=== PATIENT | male | born 1940 | race Caucasian/White ===

== ENCOUNTER 2019-11-26 07:18 | Outpatient (REF) | payer MEDICARE, SELFPAY ==
[2019-11-26 11:34] LABS: Cholesterol 102 mg/dL; HDL Cholesterol 40 mg/dL; LDL Cholesterol Calculated 35 mg/dl; Triglycerides 136 mg/dL
== END 2019-11-26 07:19 | disposition home or self-care (01) ==
LOC: HO.HMGCLDS 07:18
PROVIDERS: PCP Nurse Practitioner Family; Visit Provider Nurse Practitioner Family
DX: E78.5 Hyperlipidemia, unspecified (principal)
CPT/HCPCS: 80061

== ENCOUNTER 2019-12-13 06:16 | Outpatient (REF) | payer MEDICARE, SELFPAY ==
[2019-12-13 11:36] LABS: Estimated Average Glucose 146 mg/dL; Hemoglobin A1c % 6.7 %
[2019-12-13 11:53] LABS: Microalbum/Creatinine Ratio Ur 13.3 ug/mg cr
[2019-12-13 12:05] LABS: Anion Gap 16 (12-20); Blood Urea Nitrogen 16 mg/dL (9-16); Calcium 8.4 mg/dL (8.4-10.2); Carbon Dioxide 26 mmol/L (22-29); Chloride 106 mmol/L (96-108); Cholesterol 117 mg/dL; Estimated Glomerular Filt Rate > 60; Glucose Fasting 174 mg/dL (60-99); HDL Cholesterol 37 mg/dL; LDL Cholesterol Calculated 45 mg/dl; Potassium 4.5 mmol/l (3.3-5.1); Sodium 143 mmol/L (135-145); Triglycerides 176 mg/dL
== END 2019-12-13 06:17 | disposition home or self-care (01) ==
LOC: HO.HMGCLDS 06:16
PROVIDERS: PCP Nurse Practitioner Family; Visit Provider Nurse Practitioner Family
DX: E11.9 Type 2 diabetes mellitus without complications (principal)
CPT/HCPCS: 80048; 80061; 82043; 83036

== ENCOUNTER 2020-02-27 06:20 | Outpatient (REF) | payer MEDICARE, SELFPAY ==
[2020-02-27 11:32] LABS: Estimated Average Glucose 143 mg/dL; Hemoglobin A1c % 6.6 %
[2020-02-27 11:50] LABS: Alanine Aminotransferase 11 U/L (0-40); Albumin Level 4.2 g/dL (3.5-5.0); Alkaline Phosphatase 65 U/L (39-117); Anion Gap 16 (12-20); Aspartate Amino Transferase 18 U/L (5-37); Bilirubin Total 0.4 mg/dL (0.0-1.0); Blood Urea Nitrogen 24 mg/dL (9-16); Carbon Dioxide 24 mmol/L (22-29); Chloride 107 mmol/L (96-108); Cholesterol 133 mg/dL; Estimated Glomerular Filt Rate 55; Glucose Fasting 132 mg/dL (60-99); HDL Cholesterol 40 mg/dL; LDL Cholesterol Calculated 48 mg/dl; Potassium 4.9 mmol/l (3.3-5.1); Sodium 142 mmol/L (135-145); Total Protein 6.9 g/dL (6.5-8.0); Triglycerides 226 mg/dL
== END 2020-02-27 06:21 | disposition home or self-care (01) ==
LOC: HO.HMGCLDS 06:20
PROVIDERS: PCP Nurse Practitioner Family; Visit Provider Nurse Practitioner Family
DX: E11.9 Type 2 diabetes mellitus without complications (principal)
CPT/HCPCS: 36415; 80053; 80061; 83036

== ENCOUNTER 2020-03-11 | Outpatient (REF) | payer MEDICARE, SELFPAY ==
[2020-03-17 16:30] LABS: FIT Int Ctl YES; FIT1 NEGATIVE (NEGATIVE); FIT2 NEGATIVE (NEGATIVE)
== END 2020-03-11 00:01 | disposition home or self-care (01) ==
LOC: HO.LNP
PROVIDERS: Visit Provider Nurse Practitioner Family
DX: D64.9 Anemia, unspecified (principal)
CPT/HCPCS: 82274

== ENCOUNTER 2020-05-22 06:35 | Outpatient (REF) | payer MEDICARE, SELFPAY ==
[2020-05-22 12:16] LABS: Alanine Aminotransferase 13 U/L (0-40); Albumin Level 4.2 g/dL (3.5-5.0); Alkaline Phosphatase 43 U/L (39-117); Anion Gap 13 (12-20); Aspartate Amino Transferase 20 U/L (5-37); Bilirubin Total 0.4 mg/dL (0.0-1.0); Blood Urea Nitrogen 27 mg/dL (9-16); Carbon Dioxide 26 mmol/L (22-29); Chloride 107 mmol/L (96-108); Cholesterol 152 mg/dL; Estimated Glomerular Filt Rate 58; Glucose Fasting 133 mg/dL (60-99); HDL Cholesterol 32 mg/dL; LDL Cholesterol Calculated 73 mg/dl; Potassium 4.4 mmol/L (3.3-5.1); Sodium 142 mmol/L (135-145); Total Protein 6.7 g/dL (6.5-8.0); Triglycerides 235 mg/dL
== END 2020-05-22 06:36 | disposition home or self-care (01) ==
LOC: HO.HMGCLDS 06:35
PROVIDERS: Visit Provider Nurse Practitioner Family
DX: E11.9 Type 2 diabetes mellitus without complications (principal); E78.5 Hyperlipidemia, unspecified
CPT/HCPCS: 36415; 80053; 80061

== ENCOUNTER 2020-07-06 06:17 | Outpatient (REF) | payer MEDICARE, SELFPAY ==
[2020-07-06 11:59] LABS: Cholesterol 152 mg/dL; HDL Cholesterol 36 mg/dL; LDL Cholesterol Calculated 73 mg/dl; Triglycerides 215 mg/dL
== END 2020-07-06 06:18 | disposition home or self-care (01) ==
LOC: HO.HMGCLDS 06:17
PROVIDERS: PCP Nurse Practitioner Family; Visit Provider Nurse Practitioner Family
DX: E78.5 Hyperlipidemia, unspecified (principal)
CPT/HCPCS: 36415; 80061

== ENCOUNTER 2020-11-02 06:21 | Outpatient (REF) | payer MEDICARE, SELFPAY ==
[2020-11-02 12:43] LABS: Creatinine Urine 110.48 mg/dL; Microalbum/Creatinine Ratio Ur 11.7 ug/mg cr
[2020-11-02 12:59] LABS: Estimated Average Glucose 111 mg/dL; Hemoglobin A1c % 5.5 %
[2020-11-02 14:24] LABS: Alanine Aminotransferase 13 U/L (0-40); Alkaline Phosphatase 62 U/L (39-117); Anion Gap 14 (12-20); Aspartate Amino Transferase 21 U/L (5-37); Bilirubin Total 0.3 mg/dL (0.0-1.0); Blood Urea Nitrogen 20 mg/dL (9-16); Calcium 9.2 mg/dL (8.4-10.2); Carbon Dioxide 21 mmol/L (22-29); Chloride 111 mmol/L (96-108); Cholesterol 145 mg/dL; Estimated Glomerular Filt Rate > 60; Glucose Fasting 136 mg/dL (60-99); HDL Cholesterol 32 mg/dL; LDL Cholesterol Calculated 73 mg/dl; Potassium 4.4 mmol/L (3.3-5.1); Sodium 142 mmol/L (135-145); Total Protein 6.3 g/dL (6.5-8.0); Triglycerides 200 mg/dL
== END 2020-11-02 06:22 | disposition home or self-care (01) ==
LOC: HO.HMGCLDS 06:21
PROVIDERS: PCP Nurse Practitioner Family; Visit Provider Nurse Practitioner Family
DX: E11.9 Type 2 diabetes mellitus without complications (principal); Z12.5 Encounter for screening for malignant neoplasm of prostate
CPT/HCPCS: 36415; 80053; 80061; 82043; 83036; 84153

== ENCOUNTER 2020-11-10 06:14 | Outpatient (REF) | payer MEDICARE, SELFPAY ==
[2020-11-10 11:35] LABS: Appearance Urine CLEAR; Color Urine YELLOW; Glucose Urine UA NEG (NEG); Leukocyte Esterase Urine NEG (NEG); Nitrite Urine NEG (NEG); PH 5.5 (5.0-8.0); Specific Gravity - Urine >= 1.030 (1.005-1.025); Urine Blood NEG (NEG); Urine Ketones 5 MG/DL (NEG); Urine Protein NEG (NEG-TRACE)
[2020-11-10 11:48] LABS: Estimated Average Glucose 111 mg/dL; Hemoglobin A1c % 5.5 %
[2020-11-10 11:58] LABS: Alanine Aminotransferase 14 U/L (0-40); Alkaline Phosphatase 47 U/L (39-117); Anion Gap 14 (12-20); Aspartate Amino Transferase 21 U/L (5-37); Bilirubin Total 0.4 mg/dL (0.0-1.0); Blood Urea Nitrogen 21 mg/dL (9-16); Calcium 9.1 mg/dL (8.4-10.2); Carbon Dioxide 25 mmol/L (22-29); Chloride 109 mmol/L (96-108); Cholesterol 144 mg/dL; Estimated Glomerular Filt Rate > 60; Glucose Fasting 121 mg/dL (60-99); HDL Cholesterol 33 mg/dL; LDL Cholesterol Calculated 68 mg/dl; Potassium 4.1 mmol/L (3.3-5.1); Sodium 144 mmol/L (135-145); Total Protein 6.4 g/dL (6.5-8.0); Triglycerides 219 mg/dL
[2020-11-10 12:19] LABS: Creatinine Urine 191.49 mg/dL; Microalbum/Creatinine Ratio Ur 11.4 ug/mg cr
[2020-11-10 12:22] LABS: TSH reflex Free T4 2.78 uIU/mL (0.32-4.0)
== END 2020-11-10 06:15 | disposition home or self-care (01) ==
LOC: HO.HMGCLDS 06:14
PROVIDERS: PCP Nurse Practitioner Family; Visit Provider Nurse Practitioner Family
DX: E11.9 Type 2 diabetes mellitus without complications (principal)
CPT/HCPCS: 36415; 80053; 80061; 81003; 82043; 83036; 84443

== ENCOUNTER 2021-04-26 09:17 | Outpatient (REF) | payer MEDICARE, SELFPAY ==
[2021-04-26 11:29] LABS: Appearance Urine CLEAR; Color Urine YELLOW; Glucose Urine UA NEG (NEG); Leukocyte Esterase Urine NEG (NEG); Nitrite Urine NEG (NEG); Specific Gravity - Urine >= 1.030 (1.005-1.025); UACC Culture Trigger NO; Urine Blood TRACE (NEG); Urine Ketones NEG (NEG); Urine Protein TRACE MG/DL (NEG-TRACE)
[2021-04-26 11:44] LABS: RBC Urine 0-2 /HPF (0); Squamous Epithelial Cell Urine 1+ /LPF
[2021-04-26 12:10] LABS: Alanine Aminotransferase 17 U/L (0-40); Alkaline Phosphatase 55 U/L (39-117); Anion Gap 14 (12-20); Aspartate Amino Transferase 21 U/L (5-37); Bilirubin Total 0.4 mg/dL (0.0-1.0); Blood Urea Nitrogen 15 mg/dL (9-16); Calcium 9.1 mg/dL (8.4-10.2); Carbon Dioxide 26 mmol/L (22-29); Chloride 108 mmol/L (96-108); Cholesterol 119 mg/dL; Estimated Glomerular Filt Rate > 60; Glucose Fasting 196 mg/dL (60-99); HDL Cholesterol 38 mg/dL; LDL Cholesterol Calculated 50 mg/dl; Potassium 4.1 mmol/L (3.3-5.1); Sodium 144 mmol/L (135-145); Total Protein 6.7 g/dL (6.5-8.0); Triglycerides 157 mg/dL
[2021-04-26 12:39] LABS: Estimated Average Glucose 140 mg/dL; Hemoglobin A1c % 6.5 %
== END 2021-04-26 09:18 | disposition home or self-care (01) ==
LOC: HO.HMGCLDS 09:17
PROVIDERS: Visit Provider Nurse Practitioner Family
DX: E11.9 Type 2 diabetes mellitus without complications (principal)
CPT/HCPCS: 36415; 80053; 80061; 81001; 83036; 84443

== ENCOUNTER 2021-05-24 06:26 | Outpatient (REF) | payer MEDICARE, SELFPAY ==
[2021-05-24 11:26] LABS: Appearance Urine CLEAR; Color Urine YELLOW; Glucose Urine UA NEG (NEG); Leukocyte Esterase Urine NEG (NEG); Nitrite Urine NEG (NEG); Specific Gravity - Urine 1.025 (1.005-1.025); Urine Blood NEG (NEG); Urine Ketones NEG (NEG); Urine Protein NEG (NEG-TRACE)
== END 2021-05-24 06:27 | disposition home or self-care (01) ==
LOC: HO.HMGCLDS 06:26
PROVIDERS: Visit Provider Nurse Practitioner Family
DX: E11.9 Type 2 diabetes mellitus without complications (principal)
CPT/HCPCS: 81003

== ENCOUNTER → 2021-06-10 10:03 | Outpatient (BNVA) | payer MEDICARE, SELFPAY | PROVIDERS: PCP Nurse Practitioner Family; Referring Provider Nurse Practitioner Family; Visit Provider Internal Medicine Cardiovascular Disease | DX: I73.9 Peripheral vascular disease, unspecified (principal); Z79.899 Other long term (current) drug therapy | CPT/HCPCS: 93005; 99212 ==

== ENCOUNTER 2021-09-02 09:21 | Outpatient (REF) | payer MEDICARE, SELFPAY ==
--- NOTE | ~2021-09-02 | US_ITS ---
EXAMINATION: US EXTRACRANIAL CAROTID DUPLEX, BILATERAL CLINICAL INFORMATION: Atherosclerotic disease COMPARISON: None TECHNIQUE: Real-time ultrasound and Doppler techniques (integrating B-mode 2-D vascular images, Doppler spectral analysis and color-flow Doppler imaging) were utilized to interrogate the extracranial carotid arteries, the vertebral arteries and proximal subclavian arteries bilaterally. The degree of stenosis is determined by criteria similar to NASCET. FINDINGS: Right Side: 1. There is moderate atherosclerotic plaque seen in the bifurcation/proximal ICA region. 2. The common carotid artery PSV proximally is 85 cm/s and distally 70 cm/s. 3. The proximal internal carotid artery velocities are 316 cm/s systolic and 33 cm/s diastolic. 4. The proximal external carotid artery PSV is 234 cm/s. 5. The vertebral artery shows antegrade flow. 6. The subclavian artery waveforms are normal. Left Side: 1. There is mild atherosclerotic plaque seen in the bifurcation/proximal ICA region. 2. The common carotid artery PSV proximally is 104 cm/s and distally 76 cm/s. 3. The proximal internal carotid artery velocities are 68 cm/s systolic and 13 cm/s diastolic. 4. The proximal external carotid artery PSV is 191 cm/s. 5. The vertebral artery shows antegrade flow. 6. The subclavian artery waveforms are normal. US/US carotid duplex BI IMPRESSION: 1. RIGHT: Moderate, hemodynamically significant stenosis of the proximal right internal carotid artery corresponding to a 50-79% stenosis by velocity criteria. 2. LEFT: Minimal, non-hemodynamically significant stenosis of the proximal left internal carotid artery corresponding to a 0-49% stenosis by velocity criteria. 3. Elevated velocities in the right external carotid artery suggesting stenosis.
--- NOTE | ~2021-09-02 | US_ITS ---
EXAMINATION: NONINVASIVE ASSESSMENT OF THE ARTERIES OF BOTH LOWER EXTREMITIES INCLUDING PVR EXAM AND BILATERAL LOWER EXTREMITY DUPLEX. CLINICAL INFORMATION: Atherosclerosis, right popliteal and superficial femoral angioplasty and atherectomy, left endarterectomy COMPARISON: Noninvasive exam of the lower extremity arterial system on 06/19/2018 TECHNIQUE: Ankle pulse volume recordings, ankle pressure measurements and ankle brachial indices were obtained of the lower extremity arterial system bilaterally in addition to duplex Doppler techniques with wave form analysis and measurement of velocities in the common femoral, profunda femoral, superficial femoral, popliteal, tibial and peroneal arteries. The study was performed only at rest. FINDINGS: RIGHT LEG 1. THE RIGHT ANKLE-BRACHIAL INDEX IS: 1.01 >0.97-1.25 = normal - no significant arterial disease 0.75-0.96 = mild peripheral arterial disease 0.5-0.74 = moderate peripheral arterial disease <0.50 = severe peripheral arterial disease <0.30 = critical arterial disease 2. SEGMENTAL PRESSURES (mmHg): Ankle: PT 132, DP 154 3. PVR WAVEFORMS: Ankle: Mildly dampened 4. DIRECT DUPLEX: Common femoral artery: 210 cm/s, Multiphasic Profunda femoris artery: 310 cm/s, Multiphasic Superficial femoral artery (proximal): 384 cm/s, Multiphasic Superficial femoral artery (mid): 139 cm/s, Multiphasic Superficial femoral artery (distal): 124 cm/s, Multiphasic Proximal Popliteal artery: 101 cm/s, Multiphasic Mid posterior tibial artery: Occluded LEFT LE. THE LEFT ANKLE-BRACHIAL INDEX IS: 0.97 (higher of the DP/PT) >0.97-1.25 = normal - no significant arterial disease 0.75-0.96 = mild peripheral arterial disease 0.5-0.74 = moderate peripheral arterial disease <0.50 = severe peripheral arterial disease <0.30 = critical arterial disease 2. SEGMENTAL PRESSURES: Ankle: PT 147, DP 146 3. PVR WAVEFORMS: Ankle: Mildly dampened 4. DIRECT DUPLEX: Common femoral artery: 416 cm/s, Multiphasic Profunda femoris artery: 401 cm/s, Multiphasic Superficial femoral artery (proximal): 383 cm/s, Multiphasic Superficial femoral artery (mid): 383 cm/s, Multiphasic Superficial femoral artery (distal): 129 cm/s, Multiphasic Proximal Popliteal artery: 128 cm/s, Multiphasic Mid posterior tibial artery: 89 cm/s, Multiphasic US/US arterial duplex LE BI IMPRESSION: Right lower extremity: Elevated velocities in the proximal right lower extremity suggesting hemodynamically significant stenosis. Normal CHRISTIAN may artifactual secondary to atherosclerotic calcification or collateralization. Left lower extremity: Elevated velocities in the proximal left lower extremity suggesting hemodynamically significant stenosis. Normal CHRISTIAN may artifactual secondary to atherosclerotic calcification or collateralization.
== END 2021-09-02 09:22 | disposition home or self-care (01) ==
LOC: HO.US 09:21
PROVIDERS: Visit Provider Surgery Vascular Surgery
DX: I70.213 Atherosclerosis of native arteries of extremities with intermittent claudication, bilateral legs (principal); I65.21 Occlusion and stenosis of right carotid artery
CPT/HCPCS: 93880; 93923; 93925

== ENCOUNTER 2021-09-02 16:20 | Outpatient (REF) | payer MEDICARE, SELFPAY | END 2021-09-02 16:21 | disposition home or self-care (01) | LOC: HO.US 16:20 | PROVIDERS: Visit Provider Surgery Vascular Surgery | DX: Z13.89 Encounter for screening for other disorder (principal) ==

== ENCOUNTER → 2021-09-07 09:40 | Outpatient (BNVA) | payer MEDICARE, SELFPAY | PROVIDERS: PCP Nurse Practitioner Family; Visit Provider Surgery Vascular Surgery | DX: I65.23 Occlusion and stenosis of bilateral carotid arteries (principal); I73.9 Peripheral vascular disease, unspecified | CPT/HCPCS: 99212 ==

== ENCOUNTER 2021-10-07 06:35 | Outpatient (REF) | payer MEDICARE, SELFPAY ==
[2021-10-07 11:21] LABS: MANUAL DIFF FLAG NO
[2021-10-07 11:28] LABS: Basophils Percent Auto 0.4 % (0-2); Eosinophils Absolute Auto 0.3 X10*3/uL (0.0-0.4); Eosinophils Percent Auto 5.5 % (0-4); Hemoglobin 12.4 g/dl (14.0-18.0); Lymphocytes Absolute Auto 1.1 X10*3/uL (1.2-4.9); Lymphocytes Percent Auto 23.6 % (20-40); Mean Corpuscular HGB Conc 31.8 g/dl (31.0-36.0); Mean Corpuscular Hemoglobin 28.9 pg (27.0-33.0); Mean Corpuscular Volume 90.9 fL (80.0-98.0); Mean Platelet Volume 11.1 fL (9.4-12.4); Monocytes Absolute Auto 0.4 X10*3/uL (0.1-1.2); Monocytes Percent Auto 8.6 % (2-11); Neutrophils Absolute Auto 2.8 x10*3/uL (2.0-8.3); Neutrophils Percent Auto 61.9 % (45-73); Platelet Count 166 X10*3/uL (160-400); Red Blood Count 4.29 X10*6/uL (4.60-5.80); Red Cell Distribution Width 14.6 % (11.0-16.0); White Blood Count 4.5 X10*3/uL (4.8-10.8)
[2021-10-07 11:39] LABS: Estimated Average Glucose 143 mg/dL; Hemoglobin A1c % 6.6 %
[2021-10-07 12:08] LABS: Alanine Aminotransferase 9 U/L (0-40); Albumin Level 3.8 g/dL (3.5-5.0); Alkaline Phosphatase 58 U/L (39-117); Anion Gap 14 (12-20); Aspartate Amino Transferase 15 U/L (5-37); Bilirubin Total 0.5 mg/dL (0.0-1.0); Blood Urea Nitrogen 18 mg/dL (9-16); Calcium 8.9 mg/dL (8.4-10.2); Carbon Dioxide 25 mmol/L (22-29); Chloride 105 mmol/L (96-108); Cholesterol 107 mg/dL; Estimated Glomerular Filt Rate > 60; Glucose Fasting 157 mg/dL (60-99); HDL Cholesterol 44 mg/dL; LDL Cholesterol Calculated 43 mg/dl; Sodium 140 mmol/L (135-145); Total Protein 6.3 g/dL (6.5-8.0); Triglycerides 101 mg/dL
[2021-10-07 12:11] LABS: PSA,Total (Free>4and<10) 0.89 ng/mL (0.00-4.00); TSH reflex Free T4 3.82 uIU/mL (0.32-4.0)
[2021-10-07 12:30] LABS: Creatinine Urine 58.98 mg/dL; Microalbumin Urine < 5.0 mg/L
[2021-10-07 13:47] LABS: Appearance Urine Clear; Color Urine Yellow; Glucose Urine UA Negative (Negative); Leukocyte Esterase Urine Negative (Negative); Nitrite Urine Negative (Negative); Urine Blood Negative (Negative); Urine Ketones Negative (Negative); Urine Protein Negative (Neg-Trace)
== END 2021-10-07 06:36 | disposition home or self-care (01) ==
LOC: HO.HMGCLDS 06:35
PROVIDERS: PCP Nurse Practitioner Family; Visit Provider Nurse Practitioner Family
DX: E11.9 Type 2 diabetes mellitus without complications (principal); C61 Malignant neoplasm of prostate
CPT/HCPCS: 36415; 80053; 80061; 81003; 82043; 83036; 84153; 84443; 85025

== ENCOUNTER 2021-12-14 06:32 | Day surgery (SDC) | payer MEDICARE, SELFPAY ==
--- NOTE | 2021-12-13 11:06 | P.CONAN_ITS ---
Documented by User: Shellie Newman NP 12/13/21 11:08 HPI - Anesthesia Eval Consult details Narrative: 81yo M for Upper Endoscopy Optimized per cardiology. OK to stop plavix PMFSH Active Problems Active Problems: All Active Problems (Updated 11/08/21 @ 12:00 by [facility] Chronic GERD (Acute) Prostate CA (Acute) Bilateral carotid artery stenosis (Acute) PVD (peripheral vascular disease) (Acute) Encounter for annual wellness visit (AWV) in Medicare patient (Acute) Screening PSA (prostate specific antigen) (Acute) Plantar callus (Acute) Acquired hammertoes of both feet (Acute) Type 2 diabetes mellitus without complication, without long-term current use of insulin (Acute) Anemia (Acute) Dyslipidemia (Acute) Diabetes (Acute) Past Medical History Medical History (Updated 11/08/21 @ 12:00 by [facility]) Acquired hammertoes of both feet Carotid artery stenosis COPD (chronic obstructive pulmonary disease) Dyslipidemia Eczema Hearing loss HTN (hypertension) Plantar callus Prostate CA PVD (peripheral vascular disease) Type 2 diabetes mellitus without complication, without long-term current use of insulin Family History Family History Father Medical history non-contributory Mother Medical history non-contributory Son No problems noted. Daughter No problems noted. Daughter No problems noted. Surgical History Surgical History H/O colonoscopy with polypectomy History of angioplasty History of atherectomy History of cataract surgery History of cataract surgery History of endarterectomy History of left-sided carotid endarterectomy Status post aortography with runoff Social History Social History Housing: House Alcohol intake: current Patient Tobacco Use Status: Former Tobacco user Years Smoked: quit 25 years ago e-Cigarette/Vaping Use: Never Used Second Hand Smoke Exposure: No Use of substances other than those prescribed or required for medical reasons: No Advance Directives: No Advance Directives Information Provided: Yes service: Yes Current occupational status: retired Cognitive needs: No Hearing needs: No Vision needs: No Meds Allergies Allergy/AdvReac Type Severity Reaction Status Date / Time No Known Allergies Allergy Verified 11/08/21 11:38 [No Known Allergies*] Home Medications Medication Instructions Recorded Confirmed Last Taken Type flu vacc [id number](65yr up)-PF 240 ml IM 03/02/20 10/04/21 Unknown History mcg/0.7 mL intramuscular syringe fluticasone propionate 50 intranasal 03/02/20 11/08/21 Unknown History mcg/actuation nasal spray,suspension pneumoc 13-rocky conj-dip cr(PF) 0.5 0.5 ml IM DIRECTED 03/02/20 10/04/21 Unknown History mL IM syringe Exam Exam Date and Time: December 13, 2021 1106 Pertinent Lab Results Pertinent Lab Results: Laboratory Tests 10/07/21 10/07/21 06:48 06:48 WBC 4.5 L Hgb 12.4 L Hct 39.0 L Plt Count 166 Sodium 140 Potassium 4.0 Chloride 105 Carbon Dioxide 25 BUN 18 H Creatinine 1.08 Narrative Narrative: EKG 05/2021 normal sinus rhythm with incomplete right bundle-branch block, otherwise normal EKG US carotid duplex BI 08/2021 IMPRESSION: 1. RIGHT: Moderate, hemodynamically significant stenosis of the proximal right internal carotid artery corresponding to a 50-79% stenosis by velocity criteria. ? 2. LEFT: Minimal, non-hemodynamically significant stenosis of the proximal left internal carotid artery corresponding to a 0-49% stenosis by velocity criteria. ? 3. Elevated velocities in the right external carotid artery suggesting stenosis. Assessment and Plan Assessment Anesthesia Assessment: Chart Reviewed Documented by User: Hernandez Acuna MD 12/14/21 16:02 [facility] Past Medical History Medical History (Updated 11/08/21 @ 12:00 by Cristhian Durán [facility]) Acquired hammertoes of both feet Carotid artery stenosis COPD (chronic obstructive pulmonary disease) Dyslipidemia Eczema Hearing loss HTN (hypertension) Plantar callus Prostate CA PVD (peripheral vascular disease) Type 2 diabetes mellitus without complication, without long-term current use of insulin Functional capacity: independent ambulation Family History Family History Father Medical history non-contributory Mother Medical history non-contributory Son No problems noted. Daughter No problems noted. Daughter No problems noted. Family history of problems with anesthesia: No Surgical History Surgical History H/O colonoscopy with polypectomy History of angioplasty History of atherectomy History of cataract surgery History of cataract surgery History of endarterectomy History of left-sided carotid endarterectomy Status post aortography with runoff History of Problems with Anesthesia: No Social History Social History Housing: House Alcohol intake: current Patient Tobacco Use Status: Former Tobacco user Years Smoked: quit 25 years ago e-Cigarette/Vaping Use: Never Used Second Hand Smoke Exposure: No Use of substances other than those prescribed or required for medical reasons: No Advance Directives: No Advance Directives Information Provided: Yes service: Yes Current occupational status: retired Cognitive needs: No Hearing needs: No Vision needs: No Meds Allergies Allergy/AdvReac Type Severity Reaction Status Date / Time No Known Allergies Allergy Verified 11/08/21 11:38 [No Known Allergies*] Home Medications Medication Instructions Recorded Confirmed Last Taken Type flu vacc [id number](65yr up)-PF 240 ml IM 03/02/20 10/04/21 Unknown History mcg/0.7 mL intramuscular syringe fluticasone propionate 50 intranasal 03/02/20 11/08/21 Unknown History mcg/actuation nasal spray,suspension pneumoc 13-rocky conj-dip cr(PF) 0.5 0.5 ml IM DIRECTED 03/02/20 10/04/21 Unknown History mL IM syringe Exam Airway Mallampati Class: IV TM Dist: >3cm Neck ROM: Full (thick neck ) Loose/Missing/Broken Teeth: Yes (Chipped teeth ,) Heart: S1,S2 Lungs: b/l breath sounds Assessment and Plan Assessment Anesthesia Assessment: Anesthesia Plan Discussed Final Anesthetic Review Family History of Problems with Anesthesia: No History of Problems with Anesthesia: No NPO: Yes ASA Class: III Final Preanesthetic Review: Meds/Allgs Chart Reviewed, Consent Obtained/Reviewed and Anes Risks/Benef Reviewed Patient Risk: High Procedure Risk: Intermediate Anesthetic Plan Anesthetic Plan: MAC: Disposition: Standard PACU
[2021-12-14 06:39] VITALS: BMI 28.5
[2021-12-14 06:53] VITALS: BP 169/73; PULSE 70; RESP 16; TEMP 36.4; O2SAT 96
[2021-12-14] MEDS: Lactated Ringers 1,000 ML 100 ML IVCONT (07:02)
[2021-12-14 07:55] LABS: Glucose, Whole Blood 190 mg/dL (60-115)
[2021-12-14 08:05] VITALS: BP 143/67; PULSE 66; RESP 16; TEMP 36.4; O2SAT 98
--- NOTE | 2021-12-14 08:08 | P.BOP_ITS ---
Brief Operative Note Date of Service: 12/14/21 Pre-op diagnosis: Early satiety, anorexia Post-op diagnosis: other (Gastritis, Hiatal hernia) Procedure: EGD with biopsies Surgeon: Larry Infante Anesthesia: MAC Was an Line Construction Engineer used for this Procedure?: No Estimated blood loss (mL): 2.0 Pathology: other (A. Gastric antrum) Condition: stable Disposition: PACU
[2021-12-14 08:20] VITALS: BP 157/66; PULSE 72; RESP 18; TEMP 36.4; O2SAT 97
--- NOTE | 2021-12-14 08:44 | OP_ITS ---
SURGEON: Larry Infante MD INDICATIONS: The patient presents for evaluation of nausea, early satiety, and anorexia. Full consent has been obtained from him for this, including risks of bleeding and perforation. PREOPERATIVE DIAGNOSIS: POSTOPERATIVE DIAGNOSIS: Nausea, anorexia, early satiety, mild gastritis, small hiatal hernia. PROCEDURE PERFORMED: Esophagogastroduodenoscopy with biopsy. ESTIMATED BLOOD LOSS: COMPLICATIONS: ANESTHESIA: Monitored anesthesia care. ASSISTANTS: SPECIMENS: PREOPERATIVE DIAGNOSES: Nausea, anorexia, early satiety. DESCRIPTION OF PROCEDURE: The patient was placed in the left lateral decubitus position. The Olympus video gastroscope was passed in the posterior oropharynx and upper esophagus under direct vision. The scope was passed slowly to the distal esophagus. The gastroesophageal junction appeared at 38 cm. There was a very minimal irregularity but no evidence of any esophagitis, Gloria's mucosa, ulceration, nor mass. The scope entered into the stomach. There was a small hiatal hernia. The scope was advanced to the pylorus, and the duodenum was cannulated to the descending portion. The duodenum including the bulb appeared normal without mass or ulceration. The pyloric channel was patent without ulceration nor stricture. The scope was withdrawn back to the stomach. The gastric antrum had some mild areas of erythema, but was otherwise normal. Peristalsis appeared normal. There was no ulceration or mass. Biopsies were obtained from the antrum. The scope was retroflexed visualizing the proximal stomach carefully, which appeared normal, without any sign of mass or ulceration. The scope was straightened and withdrawn back to the esophagus. The esophageal mucosa appeared normal. The scope was withdrawn from the patient. He tolerated the procedure well and was returned to the recovery area in stable condition. IMPRESSION: 1. Mild gastritis. 2. Small hiatal hernia. PLAN: The results of the biopsy will be checked. I did advise him to continue his omeprazole for now to see if that gives him any relief from his evening symptoms of the early satiety and nausea. I shall also arrange for an outpatient nuclear medicine gastric emptying study to rule out any component of gastroparesis, although based on his clinical history and today's findings, I doubt that is the case. If the nuclear medicine gastric emptying study is normal, then I would recommend we observe things. He may need to eat small meals during the day so he doesn't have the evening symptomatology. This has been discussed with his . MD MAXINE Hooker/RAE / [id number] SAULO
== END 2021-12-14 08:52 | disposition home or self-care (01) ==
PROVIDERS: PCP Nurse Practitioner Family; Visit Provider Internal Medicine
PROC: 0DJ08ZZ Inspection of Upper Intestinal Tract, Via Natural or Artificial Opening Endoscopic (ICD-10-PCS; CPT 43235; principal; 2021-12-14 07:30)
DX: K21.9 Gastro-esophageal reflux disease without esophagitis (principal); R63.0 Anorexia; R68.81 Early satiety; K29.50 Unspecified chronic gastritis without bleeding; K44.9 Diaphragmatic hernia without obstruction or gangrene; J44.9 Chronic obstructive pulmonary disease, unspecified; Z87.891 Personal history of nicotine dependence; I65.23 Occlusion and stenosis of bilateral carotid arteries; I10 Essential (primary) hypertension; C61 Malignant neoplasm of prostate; I73.9 Peripheral vascular disease, unspecified; E11.9 Type 2 diabetes mellitus without complications; Z79.84 Long term (current) use of oral hypoglycemic drugs; Z79.899 Other long term (current) drug therapy; Z79.51 Long term (current) use of inhaled steroids
CPT/HCPCS: 43239; 82947; 88305; 88342

== ENCOUNTER → 2021-12-27 07:43 | Outpatient (REF) | payer MEDICARE, SELFPAY ==
--- NOTE | ~2021-12-27 | NM_ITS ---
EXAMINATION: RADIONUCLIDE SOLID FOOD GASTRIC EMPTYING 4-HOUR STUDY CLINICAL INFORMATION: Early satiety. COMPARISON: No previous gastric emptying study is available for comparison. TECHNIQUE: A standard meal consisting of 4 oz of Egg Beaters brand tagged with 1.0 mCi Tc-99m Sulfur Colloid, 8 oz water and 2 slices of toast with jelly was administered orally to the patient. Images were obtained using a dual head gamma camera in the anterior and posterior projections over of the stomach immediately post ingestion and at hourly intervals up to 3 hours post ingestion. Images were not obtained at 4 hours due to the minimal retention at 3 hours. The anterior and posterior counts at each time interval were averaged using the geometric mean and expressed as percentage of the immediate post ingestion counts. FINDINGS: There is good visualization of activity in the stomach immediately post ingestion. As the study progresses, there is good clearance of activity from the stomach and visualization of progressively increasing small bowel activity. By the end of the study, there is almost no retention noted in the stomach. Retention in the stomach at each time interval was: 1 hour 33% (normal 37%-90%) 2 hours 7% (normal 30%-60%) 3 hours 2% 4 hours (Not Obtained) (normal 0%-10%) NM/NM gastric emptying study IMPRESSION: Normal solid food gastric emptying study.
== END ==
LOC: HO.NUCMED 07:43
PROVIDERS: PCP Nurse Practitioner Family; Visit Provider Internal Medicine
DX: R68.81 Early satiety (principal)
CPT/HCPCS: 78264; A9541

== ENCOUNTER 2021-12-30 09:59 | Outpatient (AMB) | payer MEDICARE, SELFPAY ==
--- NOTE | 2021-12-27 11:58 | A.OFFVIS_ITS ---
Intake Intake Visit Reasons: Elevated PSA Intake Note: Patient is present for Telephone Elevated PSA Blood Thinner: Allergies No Known Allergies [No Known Allergies*] Allergy (Verified 02/16/23 09:47) HPI HPI Comments History of Present Illness Details Larry is a pleasant male. He is a patient Dr. Guicho leyva. He seen for the following urologic conditions - prostate cancer Prostate cancer Prior therapy with external beam radiation in 2004 PSA - 10/04 0.9 Associated comorbidities diabetes Recently found to have elevated BUN Imaging shows no abnormality of urinary tract PFSH Medical History (Reviewed 02/16/23 @ 12:25 by Cristhian Durán [facility] CKD (chronic kidney disease) stage 3, GFR 30-59 ml/min Plantar callus Acquired hammertoes of both feet Type 2 diabetes mellitus without complication, without long-term current use of insulin Eczema Hearing loss Prostate CA HTN (hypertension) PVD (peripheral vascular disease) Carotid artery stenosis COPD (chronic obstructive pulmonary disease) Dyslipidemia Surgical History History of left-sided carotid endarterectomy Status post aortography with runoff History of atherectomy History of angioplasty H/O colonoscopy with polypectomy History of endarterectomy History of cataract surgery History of cataract surgery Family History Father Medical history non-contributory Mother Medical history non-contributory Son No problems noted. Daughter No problems noted. Daughter No problems noted. Social History Housing: House Alcohol intake: current Patient Tobacco Use Status: Former Tobacco user Years Smoked: quit 25 years ago e-Cigarette/Vaping Use: Never Used Second Hand Smoke Exposure: No service: Yes Current occupational status: retired Cognitive needs: No Hearing needs: No Vision needs: No Review of Systems Const Denies chills and Denies fever(s) Card Reports no additional complaints and Denies syncope Resp Denies cough GI Denies abdominal pain and Denies heartburn Reports as per HPI and Denies change in libido Neuro Denies syncope Psych Denies change in libido Endo Denies change in libido Physical Exam Const General: cooperative, healthy appearing, comfortable and no acute distress Orientation/consciousness: patient oriented x3 HEENT Face and sinus: Yes normal facial exam Mouth: moist mucous membranes Neck Neck: Yes normal visual inspection, Yes full ROM and Yes trachea midline Chest Chest palpation & inspection: normal inspection of the chest Resp Effort & Inspection: normal respiratory effort, able to speak in complete sentences and no respiratory distress GI Inspection: Yes normal to inspection Back/Spine/Pelvis Cervical Spine: normal cervical lordosis Thoracic/Lumbar Spine: thoracic and lumbar spine normal to inspection Skin General skin exam: no rashes or lesions noted Neuro General: patient oriented x3, gait normal, tone normal and moves all extremities Extrem General: Yes normal to inspection and Yes capillary refill normal Assessment & Plan Assessment & Plan (1) Prostate CA: Comment: EXBRT 2004 Code(s): C61 - Malignant neoplasm of prostate Plan Twelve month follow-up Patient Instructions: Imaging studies, laboratory and physical exam results were discussed and reviewed in detail. No major barriers to patient understanding were identified. An opportunity to ask questions regarding the treatment plan was provided. All questions were answered. The patient expressed understanding and agreement with the above treatment plan. The patient is aware they should contact our office by phone for worsening of their current condition or the appearance of new urologic symptoms. Compliance is encouraged with any medications and followup testing that is ordered. It is a privilege to participate in the urologic care of your patient. If you have any questions or concerns regarding treatment for the above conditions, or other urologic issues, please do not hesitate to contact me. The office telephone contact is [phone]. This note is constructed using voice recognition software. While every effort has been made to ensure accuracy oiler and greaser errors may have been included. Yours sincerely, Dr Hiren Reyes MD, [facility] - Urology Providers of Expert, Compassionate Care for the Genitourinary System Telehealth Telehealth Location of provider rendering services: practice address Location of patient: address on file Patient Identification confirmed using: Name, : Yes Telehealth method: voice only Patient verbally consented to treatment: Yes Patient verbally consented to billing insurance company: Yes Patient informed of any privacy concerns related to visit: Yes Coding Level of Care Code Est Pt Level 4 (77907) Diagnoses Prostate CA C61
== END 2021-12-31 08:14 | disposition left against medical advice (07) ==
LOC: HO.HUSH 09:59
PROVIDERS: PCP Nurse Practitioner Family; Visit Provider Urology
DX: C61 Malignant neoplasm of prostate (principal)
CPT/HCPCS: 99214; 99499

== ENCOUNTER → 2021-12-30 09:59 | Outpatient (BNVA) | payer MEDICARE, SELFPAY | PROVIDERS: PCP Nurse Practitioner Family; Visit Provider Urology | DX: C61 Malignant neoplasm of prostate (principal) | CPT/HCPCS: 99212 ==

== ENCOUNTER 2022-02-15 09:09 | Outpatient (REF) | payer MEDICARE, SELFPAY ==
[2022-02-15 11:51] LABS: Blood Urea Nitrogen 31 mg/dL (9-16); Estimated Glomerular Filt Rate 45
== END 2022-02-15 09:10 | disposition home or self-care (01) ==
LOC: HO.HMGCLDS 09:09
PROVIDERS: PCP Nurse Practitioner Family; Visit Provider Internal Medicine
DX: R11.0 Nausea (principal); R63.0 Anorexia
CPT/HCPCS: 36415; 82565; 84520

== ENCOUNTER 2022-02-17 06:40 | Outpatient (REF) | payer MEDICARE, SELFPAY ==
[2022-02-17 11:21] LABS: MANUAL DIFF FLAG NO
[2022-02-17 11:33] LABS: Appearance Urine Cloudy; Color Urine Yellow; Glucose Urine UA Negative (Negative); Leukocyte Esterase Urine Negative (Negative); Nitrite Urine Negative (Negative); PH 5.5 (5.0-9.0); Urine Blood Negative (Negative); Urine Ketones Negative (Negative); Urine Protein Negative (Neg-Trace)
[2022-02-17 11:40] LABS: Basophils Percent Auto 0.4 % (0-2); Eosinophils Absolute Auto 0.2 X10*3/uL (0.0-0.4); Hematocrit 39.1 % (42.0-52.0); Hemoglobin 12.1 g/dl (14.0-18.0); Imm Gran Abs Auto 0.01 X10*3/uL (0.00-0.03); Imm Gran Pct Auto 0.2 % (0.0-0.4); Lymphocytes Absolute Auto 1.3 X10*3/uL (1.2-4.9); Lymphocytes Percent Auto 29.7 % (20-40); Mean Corpuscular HGB Conc 30.9 g/dl (31.0-36.0); Mean Corpuscular Hemoglobin 27.9 pg (27.0-33.0); Mean Corpuscular Volume 90.3 fL (80.0-98.0); Mean Platelet Volume 11.1 fL (9.4-12.4); Monocytes Absolute Auto 0.4 X10*3/uL (0.1-1.2); Neutrophils Absolute Auto 2.6 x10*3/uL (2.0-8.3); Neutrophils Percent Auto 57.7 % (45-73); Platelet Count 215 X10*3/uL (160-400); Red Blood Count 4.33 X10*6/uL (4.60-5.80); Red Cell Distribution Width 14.6 % (11.0-16.0); White Blood Count 4.5 X10*3/uL (4.8-10.8)
[2022-02-17 11:53] LABS: Estimated Average Glucose 157 mg/dL; Hemoglobin A1c % 7.1 %
[2022-02-17 12:14] LABS: Alanine Aminotransferase < 6 U/L (0-40); Albumin Level 4.1 g/dL (3.5-5.0); Alkaline Phosphatase 41 U/L (39-117); Anion Gap 13 (12-20); Aspartate Amino Transferase 17 U/L (5-37); Bilirubin Total 0.4 mg/dL (0.0-1.0); Blood Urea Nitrogen 36 mg/dL (9-16); Carbon Dioxide 22 mmol/L (22-29); Chloride 110 mmol/L (96-108); Cholesterol 141 mg/dL; Estimated Glomerular Filt Rate 44; Glucose Fasting 173 mg/dL (60-99); HDL Cholesterol 32 mg/dL; LDL Cholesterol Calculated 74 mg/dl; Potassium 4.8 mmol/L (3.3-5.1); Sodium 140 mmol/L (135-145); Total Protein 6.5 g/dL (6.5-8.0); Triglycerides 178 mg/dL
[2022-02-17 12:17] LABS: TSH reflex Free T4 4.01 uIU/mL (0.32-4.0)
[2022-02-17 12:51] LABS: Free T4 (Free Thyroxine) 1.27 ng/dL (0.71-1.85)
== END 2022-02-17 06:41 | disposition home or self-care (01) ==
LOC: HO.HMGCLDS 06:40
PROVIDERS: PCP Nurse Practitioner Family; Visit Provider Nurse Practitioner Family
DX: E11.9 Type 2 diabetes mellitus without complications (principal)
CPT/HCPCS: 36415; 80053; 80061; 81003; 83036; 84439; 84443; 85025

== ENCOUNTER 2022-02-22 07:43 | Outpatient (REF) | payer MEDICARE, SELFPAY ==
--- NOTE | ~2022-02-22 | CT_ITS ---
EXAMINATION: CT ABDOMEN AND PELVIS WITH CONTRAST CLINICAL INFORMATION: Nausea, anorexia. COMPARISON: None. TECHNIQUE: Multidetector volumetric images were obtained from the superior aspect of the liver through the pubic symphysis following administration 85 mL of Omnipaque 350 intravenous contrast. Sagittal and coronal reformatted images were obtained on the technologist's workstation. Oral contrast: No This CT examination was performed using dose optimization techniques as appropriate, variously including the following: *Automated exposure control *Adjustment of mA and/or kV according to patient size (this includes techniques or standardized protocols for targeted exams where dose is matched to indication/reason for exam; i.e. extremities or head) *Use of iterative reconstruction technique DLP: 373 mGy-cm. FINDINGS: LUNG BASES: The visualized lung bases are unremarkable. There is mild mural thickening involving the distal esophagus. LIVER, GALLBLADDER, AND BILIARY TREE: The liver is normal in size, shape, and attenuation. There is a punctate 5 mm hypodensity left hepatic lobe axial image 210/3, an 8 mm lesion right hepatic lobe image 26/3 and a 5 mm nodule right hepatic lobe image 37/3. The gallbladder is unremarkable with no evidence of radiopaque gallstones, gallbladder wall thickening, or obvious pericholecystic inflammatory changes. PANCREAS: Unremarkable. SPLEEN: Unremarkable. ADRENAL GLANDS: There is a left adrenal 1.3 cm in enhancing lesion measuring 60 Hounsfield units. There is mild hypertrophy of the right adrenal gland. KIDNEYS AND URETERS: The kidneys are normal in size, shape, and attenuation. No hydronephrosis, hydroureter, or calculi seen. No perinephric stranding. There are multiple bilateral renal cysts. Largest cyst in the left kidney lower pole measures 3.8 cm. BLADDER: The bladder is nondistended. Mild bladder wall thickening. GASTROINTESTINAL TRACT: There is scattered stool, diverticuli and gas seen throughout the colon without distention. There is mild mural thickening sigmoid colon The small bowel loops are normal caliber. Appendix is normal caliber. ABDOMINAL WALL: No significant hernia is appreciated. LYMPH NODES: Normal. VASCULAR: There is atherosclerotic calcification of the abdominal aorta without aneurysmal dilatation. There is mild ectasia of the distal abdominal aorta measuring 2.6 cm at its maximum dimension. PELVIC VISCERA: No free air or free fluid seen. There is mild mural thickening involving the sigmoid colon with diverticuli but no pericolic fat. Question early diverticulitis. OSSEOUS STRUCTURES: There is vacuum disc phenomena at L4-L5 disc level. Mild ventral spondylosis seen throughout the ventral dorsal spine. No aggressive lytic or sclerotic process seen. CT/CT abdomen pelvis w IV con IMPRESSION: Diffuse colonic diverticulosis with mild mural thickening of the sigmoid colon without pericolic fat stranding. Question early diverticulitis. Bilateral renal cysts. Mild thickening of the distal esophagus. Fleischner guidelines were followed.
[2022-02-22] MEDS: iohexoL 350 MG/ML 100 ML INFUS..BTL IV (10:55)
[2022-02-22] MEDS: Barium Sulfate Oral (Mocha) 450 ML ORAL.SUSP 900 ML PO (10:56)
== END 2022-02-22 07:44 | disposition home or self-care (01) ==
LOC: HO.CT 07:43
PROVIDERS: PCP Nurse Practitioner Family; Visit Provider Internal Medicine
DX: R11.0 Nausea (principal); R63.0 Anorexia
CPT/HCPCS: 74177; Q9967

== ENCOUNTER 2022-03-21 07:28 | Outpatient (REF) | payer MEDICARE, SELFPAY ==
[2022-03-21 12:14] LABS: Prostate Specific Antigen 0.65 ng/mL (<0.05-4.0)
== END 2022-03-21 07:29 | disposition home or self-care (01) ==
LOC: HO.HMGCLDS 07:28
PROVIDERS: PCP Nurse Practitioner Family; Visit Provider Urology
DX: C61 Malignant neoplasm of prostate (principal)
CPT/HCPCS: 36415; 84153

== ENCOUNTER → 2022-03-31 08:56 | Outpatient (BNVA) | payer MEDICARE, SELFPAY | PROVIDERS: PCP Nurse Practitioner Family; Visit Provider Urology | DX: C61 Malignant neoplasm of prostate (principal); Z92.3 Personal history of irradiation; Z98.890 Other specified postprocedural states | CPT/HCPCS: 99202 ==

== ENCOUNTER 2022-05-02 10:15 | Outpatient (REF) | payer MEDICARE, SELFPAY ==
[2022-05-02 11:53] LABS: Appearance Urine Clear; Color Urine Yellow; Glucose Urine UA Negative (Negative); Leukocyte Esterase Urine Trace (Negative); Nitrite Urine Negative (Negative); PH 5.5 (5.0-9.0); UMIC TRIGGER UACC YES; Urine Blood Negative (Negative); Urine Ketones Trace mg/dL (Negative); Urine Protein Negative (Neg-Trace)
[2022-05-02 11:59] LABS: Bacteria Urine None Seen (None Seen); Hyaline Casts Urine 0-2 /LPF (0-2); RBC Urine 0-2 /HPF (0-2); Squamous Epithelial Cell Urine 0-2 /HPF (0-2); UACC Culture Trigger YES
== END 2022-05-02 10:16 | disposition home or self-care (01) ==
LOC: HO.HMGCLDS 10:15
PROVIDERS: PCP Nurse Practitioner Family; Visit Provider Nurse Practitioner Family
DX: R30.0 Dysuria (principal)
CPT/HCPCS: 81001; 87086

== ENCOUNTER 2022-07-25 08:33 | Outpatient (REF) | payer MEDICARE, SELFPAY ==
[2022-07-25 11:12] LABS: MANUAL DIFF FLAG NO
[2022-07-25 11:28] LABS: Appearance Urine Clear; Color Urine Yellow; Glucose Urine UA Negative (Negative); Leukocyte Esterase Urine Trace (Negative); Nitrite Urine Negative (Negative); PH 5.5 (5.0-9.0); Specific Gravity - Urine 1.015 (1.005-1.025); UMIC TRIGGER UA YES; Urine Blood Negative (Negative); Urine Ketones Negative (Negative); Urine Protein Negative (Neg-Trace)
[2022-07-25 11:33] LABS: Bacteria Urine None Seen (None Seen); Hyaline Casts Urine 0-2 /LPF (0-2); RBC Urine 0-2 /HPF (0-2); Squamous Epithelial Cell Urine 0-2 /HPF (0-2); WBC Urine 0-5 /HPF (0-5)
[2022-07-25 11:36] LABS: Basophils Percent Auto 0.7 % (0-2); Eosinophils Absolute Auto 0.1 X10*3/uL (0.0-0.4); Hematocrit 38.5 % (42.0-52.0); Imm Gran Abs Auto 0.02 X10*3/uL (0.00-0.03); Imm Gran Pct Auto 0.5 % (0.0-0.4); Lymphocytes Absolute Auto 0.9 X10*3/uL (1.2-4.9); Mean Corpuscular HGB Conc 31.2 g/dl (31.0-36.0); Mean Corpuscular Hemoglobin 29.1 pg (27.0-33.0); Mean Corpuscular Volume 93.4 fL (80.0-98.0); Monocytes Absolute Auto 0.3 X10*3/uL (0.1-1.2); Monocytes Percent Auto 7.3 % (2-11); Neutrophils Absolute Auto 2.8 x10*3/uL (2.0-8.3); Neutrophils Percent Auto 66.5 % (45-73); Platelet Count 177 X10*3/uL (160-400); Red Blood Count 4.12 X10*6/uL (4.60-5.80); Red Cell Distribution Width 14.7 % (11.0-16.0); White Blood Count 4.3 X10*3/uL (4.8-10.8)
[2022-07-25 12:07] LABS: Alanine Aminotransferase 9 U/L (0-40); Albumin Level 3.9 g/dL (3.5-5.0); Alkaline Phosphatase 34 U/L (39-117); Anion Gap 14 (12-20); Aspartate Amino Transferase 17 U/L (5-37); Bilirubin Total 0.8 mg/dL (0.0-1.0); Blood Urea Nitrogen 22 mg/dL (9-16); Calcium 9.5 mg/dL (8.4-10.2); Carbon Dioxide 24 mmol/L (22-29); Chloride 109 mmol/L (96-108); Estimated Glomerular Filt Rate 53; Glucose Random 156 mg/dL (60-115); Phosphorus 3.3 mg/dL (2.7-4.5); Potassium 4.9 mmol/L (3.3-5.1); Sodium 142 mmol/L (135-145); Total Protein 6.3 g/dL (6.5-8.0); Uric Acid 5.5 mg/dL (3.4-7.0)
[2022-07-25 12:09] LABS: Protein/Creatinine Ratio, Ur 0.07 (<0.2); Total Protein Urine Random 10 mg/dL (<12)
[2022-07-25 12:10] LABS: Vitamin D 25-OH Total 19.9 ng/mL (>30)
[2022-07-26 11:03] LABS: Magnesium 1.4 mg/dL (1.6-2.6)
[2022-07-26 12:39] LABS: Calcium (PTHI) 9.4 mg/dL (8.6-10.3); PTHI 15 pg/mL (16-77)
[2022-07-28 16:39] LABS: IgA 196 mg/dL (70-320); IgG 698 mg/dL (600-1540); IgM 39 mg/dL (50-300)
[2022-07-29 18:09] LABS: Prot Elec - Albumin 3.8 g/dL (3.8-4.8); Prot Elec - Alpha1 0.3 g/dL (0.2-0.3); Prot Elec - Alpha2 0.8 g/dL (0.5-0.9); Prot Elec - Beta 1 0.5 g/dL (0.4-0.6); Prot Elec - Beta 2 0.4 g/dL (0.2-0.5); Prot Elec - Gamma 0.6 g/dL (0.8-1.7); Prot Elec - Total Protein 6.4 g/dL (6.1-8.1)
== END 2022-07-25 08:34 | disposition home or self-care (01) ==
LOC: HO.HMGCLDS 08:33
PROVIDERS: PCP Nurse Practitioner Family; Visit Provider Internal Medicine Nephrology
DX: E11.22 Type 2 diabetes mellitus with diabetic chronic kidney disease (principal); I12.9 Hypertensive chronic kidney disease with stage 1 through stage 4 chronic kidney disease, or unspecified chronic kidney disease; N18.32 Chronic kidney disease, stage 3b
CPT/HCPCS: 36415; 80053; 81001; 82043; 82306; 82784; 83735; 83970; 84100; 84156; 84165; 84550; 85025; 86334

== ENCOUNTER 2022-08-01 10:23 | Outpatient (REF) | payer MEDICARE, SELFPAY ==
--- NOTE | ~2022-08-01 | US_ITS ---
EXAMINATION: US EXTRACRANIAL CAROTID DUPLEX, BILATERAL CLINICAL INFORMATION: Bilateral carotid stenosis with history of left endarterectomy bilateral carotid stenosis. COMPARISON: Carotid ultrasound 09/02/2021 and 11/19/2018, TECHNIQUE: Real-time ultrasound and Doppler techniques (integrating B-mode 2-D vascular images, Doppler spectral analysis and color-flow Doppler imaging) were utilized to interrogate the extracranial carotid arteries, the vertebral arteries and proximal subclavian arteries bilaterally. The degree of stenosis is determined by criteria similar to NASCET. FINDINGS: Right Side: 1. There is moderate atherosclerotic plaque seen in the bifurcation/proximal ICA region. 2. The common carotid artery PSV proximally is 91 cm/s and distally 78 cm/s. 3. The proximal internal carotid artery velocities are 327 cm/s systolic and 13 cm/s diastolic. 4. The proximal external carotid artery PSV is 492 cm/s. 5. The vertebral artery shows bidirectional flow, new from prior. 6. The subclavian artery waveforms are normal. Left Side: 1. There is minimal atherosclerotic plaque seen in the bifurcation/proximal ICA region. 2. The common carotid artery PSV proximally is 156 cm/s and distally 139 cm/s. 3. The proximal internal carotid artery velocities are 101 cm/s systolic and 13 cm/s diastolic. 4. The proximal external carotid artery PSV is 230 cm/s. 5. The vertebral artery shows antegrade flow. 6. The subclavian artery waveforms are normal. US/US carotid duplex BI IMPRESSION: 1. RIGHT: Moderate, hemodynamically significant stenosis of the proximal right internal carotid artery corresponding to a 50-79% stenosis by velocity criteria. New bidirectional flow is noted in the vertebral artery. 2. LEFT: Since the prior study velocities in the left ICA have increased, a large amount of visual plaque is not seen. Minimal, non-hemodynamically significant stenosis of the proximal left internal carotid artery corresponding to a 0-49% stenosis by velocity criteria.
== END 2022-08-01 10:24 | disposition home or self-care (01) ==
LOC: HO.HMGCX 10:23
PROVIDERS: PCP Nurse Practitioner Family; Visit Provider Surgery Vascular Surgery
DX: I65.23 Occlusion and stenosis of bilateral carotid arteries (principal)
CPT/HCPCS: 93880

== ENCOUNTER 2022-09-08 11:04 | Outpatient (AMB) | payer MEDICARE, SELFPAY ==
[2022-09-08 11:06] VITALS: BP 127/58; BMI 27.7
--- NOTE | 2022-09-08 11:06 | A.OFFVIS_ITS ---
Intake Vital Signs 09/08/22 11:06 09/08/22 11:13 Height 5 ft 7 in Weight 177 lb BMI 27.7 BP 127/58 L 146/58 H Blood Pressure Location Rt brachial Lt brachial Position Sitting Sitting Intake Visit Reasons: Follow up carotid US Intake Note: Patient is here for a follow up s/p Carotid US 08/01/22, hx left carotid endarterectomy 11/20/18, Allergies No Known Allergies [No Known Allergies*] Allergy (Verified 09/08/22 11:09) HPI Follow up carotid US HPI Details Very pleasant 82-year-old gentleman presents for surveillance follow-up regarding carotid disease. Would actually performed a left carotid endarterectomy nearly 4 years prior on him. He appears to be doing relatively well. He has had no interval issues. He now presents for routine follow-up with noninvasive testing. [facility] Medical History Acquired hammertoes of both feet Carotid artery stenosis CKD (chronic kidney disease) stage 3, GFR 30-59 ml/min COPD (chronic obstructive pulmonary disease) Dyslipidemia Eczema Hearing loss HTN (hypertension) Plantar callus Prostate CA PVD (peripheral vascular disease) Type 2 diabetes mellitus without complication, without long-term current use of insulin Surgical History H/O colonoscopy with polypectomy History of angioplasty History of atherectomy History of cataract surgery History of cataract surgery History of endarterectomy History of left-sided carotid endarterectomy Status post aortography with runoff Family History Father Medical history non-contributory Mother Medical history non-contributory Son No problems noted. Daughter No problems noted. Daughter No problems noted. Social History Housing: House Alcohol intake: current Patient Tobacco Use Status: Former Tobacco user Years Smoked: quit 25 years ago e-Cigarette/Vaping Use: Never Used Second Hand Smoke Exposure: No service: Yes Current occupational status: retired Cognitive needs: No Hearing needs: No Vision needs: No Review of Systems Const All systems reviewed & are unremarkable except as noted in HPI and below Reports no additional complaints ENT Reports Normal hearing present Card Denies chest pain, Denies chest pain at rest, Denies chest pain with activity and Denies pedal edema Resp Denies cough GI Denies abdominal pain Musc Denies abnormal gait, Denies muscle cramps and Denies radiating pain into limb Skin/Breast Denies skin ulcer and Denies wounds Neuro Reports Normal hearing present and Denies abnormal gait Psych Reports no additional complaints Physical Exam Vital Signs: Last Vital Signs BP 146/58 H 09/08/22 11:13 BMI result Body Mass Index 27.7 Const General: cooperative, healthy appearing and comfortable Orientation/consciousness: oriented to person, oriented to place and oriented to time HEENT Head: Yes normal to inspection Neck Neck: Yes normal visual inspection Carotids: no bruits Chest Chest palpation & inspection: normal inspection of the chest Resp Effort & Inspection: normal respiratory effort and able to speak in complete sentences Auscultation: clear to auscultation bilaterally, no crackles, no rales, no rhonchi and no wheezes Cardio Rate: regular rate Rhythm: regular rhythm Heart sounds: S1 normal heart sound present and S2 normal heart sound present Bruits: no carotid bruits Peripheral pulses: Peripheral pulses 2+ throughout GI Inspection: Yes normal to inspection Skin Wounds: no wounds Hair: normal Neuro General: oriented to person, oriented to place and oriented to time Cranial nerves: Yes CN's II-XII intact bilaterally and Yes Normal hearing present Cognition (Neuro): normal cognition Motor exam (neuro): 5/5 motor strength present throughout Extrem Other: venous exam: No significant superficial varicosities or spider telangiectasias, minimal edema General: No clubbing, No cyanosis and No edema Psych Appearance: grossly normal Mental Status: mental status grossly normal Speech and movement: Normal speech and movement present Results Reviewed Results Reviewed: Noninvasive carotid testing dated 08/01/2022 demonstrates right-sided stenosis 50-79% with a peak systolic of 327 left-sided 0-49%. Right side appears to be progressively increasing. Assessment & Plan Assessment & Plan (1) Bilateral carotid artery stenosis: Comment: 11/20/2018 - left carotid endarterectomy Code(s): I65.23 - Occlusion and stenosis of bilateral carotid arteries Plan: In short patient has right-sided carotid disease. Due to the progressive increase in velocity I am concerned about carotid stenosis. I have taken the liberty of ordering a CT angiogram of the carotids. He will follow up with us after testing. Thank you for allowing us to assist in his care. If there are any questions or concerns please do not hesitate to contact us. Orders: Orders Blood Urea Nitrogen Today I65.23 - Occlusion and stenosis of bilateral carotid arteries Creatinine Today I65.23 - Occlusion and stenosis of bilateral carotid arteries CT angio neck 1 Week I65.23 - Occlusion and stenosis of bilateral carotid arteries Coding Level of Care Code Est Pt Level 4 (56716) Diagnoses Bilateral carotid artery stenosis I65.23
[2022-09-08 11:13] VITALS: BP 146/58
== END 2022-09-08 11:30 | disposition home or self-care (01) ==
PROVIDERS: PCP Nurse Practitioner Family; Visit Provider Surgery Vascular Surgery
DX: I65.23 Occlusion and stenosis of bilateral carotid arteries (principal)
CPT/HCPCS: 99214

== ENCOUNTER → 2022-09-08 11:04 | Outpatient (BNVA) | payer MEDICARE, SELFPAY | PROVIDERS: PCP Nurse Practitioner Family; Visit Provider Surgery Vascular Surgery | DX: I65.23 Occlusion and stenosis of bilateral carotid arteries (principal); Z98.890 Other specified postprocedural states | CPT/HCPCS: 99212 ==

== ENCOUNTER 2022-10-10 06:26 | Outpatient (REF) | payer MEDICARE, SELFPAY ==
[2022-10-10 11:31] LABS: MANUAL DIFF FLAG NO
[2022-10-10 11:34] LABS: Basophils Percent Auto 0.4 % (0-2); Eosinophils Absolute Auto 0.2 X10*3/uL (0.0-0.4); Eosinophils Percent Auto 4.5 % (0-4); Hematocrit 36.8 % (42.0-52.0); Hemoglobin 11.5 g/dl (14.0-18.0); Imm Gran Abs Auto 0.01 X10*3/uL (0.00-0.03); Imm Gran Pct Auto 0.2 % (0.0-0.4); Lymphocytes Absolute Auto 1.4 X10*3/uL (1.2-4.9); Lymphocytes Percent Auto 29.5 % (20-40); Mean Corpuscular HGB Conc 31.3 g/dl (31.0-36.0); Mean Corpuscular Hemoglobin 29.7 pg (27.0-33.0); Mean Corpuscular Volume 95.1 fL (80.0-98.0); Mean Platelet Volume 11.3 fL (9.4-12.4); Monocytes Absolute Auto 0.4 X10*3/uL (0.1-1.2); Neutrophils Absolute Auto 2.7 x10*3/uL (2.0-8.3); Neutrophils Percent Auto 57.4 % (45-73); Platelet Count 159 X10*3/uL (160-400); Red Blood Count 3.87 X10*6/uL (4.60-5.80); Red Cell Distribution Width 16.3 % (11.0-16.0); White Blood Count 4.7 X10*3/uL (4.8-10.8)
[2022-10-10 11:37] LABS: Appearance Urine Clear; Color Urine Yellow; Glucose Urine UA Negative (Negative); Leukocyte Esterase Urine Negative (Negative); Nitrite Urine Negative (Negative); PH 5.5 (5.0-9.0); Specific Gravity - Urine 1.015 (1.005-1.025); Urine Blood Negative (Negative); Urine Ketones Negative (Negative); Urine Protein Negative (Neg-Trace)
[2022-10-10 12:10] LABS: Alanine Aminotransferase 8 U/L (0-40); Albumin Level 3.7 g/dL (3.5-5.0); Alkaline Phosphatase 36 U/L (39-117); Anion Gap 11 (12-20); Aspartate Amino Transferase 19 U/L (5-37); Bilirubin Total 0.5 mg/dL (0.0-1.0); Blood Urea Nitrogen 21 mg/dL (9-16); Calcium 9.4 mg/dL (8.4-10.2); Carbon Dioxide 25 mmol/L (22-29); Chloride 109 mmol/L (96-108); Cholesterol 112 mg/dL (<200); Estimated Glomerular Filt Rate 46; Glucose Fasting 138 mg/dL (60-99); HDL Cholesterol 32 mg/dL (>40); LDL Cholesterol Calculated 50 mg/dL (<100); Potassium 4.2 mmol/L (3.3-5.1); Sodium 141 mmol/L (135-145); Total Protein 6.3 g/dL (6.5-8.0); Triglycerides 153 mg/dL (<150)
[2022-10-10 12:11] LABS: Estimated Average Glucose 120 mg/dL; Hemoglobin A1c % 5.8 % (<6.0)
[2022-10-10 13:09] LABS: Creatinine Urine 89.38 mg/dL; Microalbum/Creatinine Ratio Ur 7.8 ug/mg cr (<30)
== END 2022-10-10 06:27 | disposition home or self-care (01) ==
LOC: HO.HMGCLDS 06:26
PROVIDERS: Absent Provider Surgery Vascular Surgery; PCP Nurse Practitioner Family; Visit Provider Nurse Practitioner Family
DX: E11.9 Type 2 diabetes mellitus without complications (principal); I10 Essential (primary) hypertension
CPT/HCPCS: 36415; 80053; 80061; 81003; 82043; 83036; 84443; 85025

== ENCOUNTER 2022-10-18 10:28 | Outpatient (AMB) | payer MEDICARE, SELFPAY ==
[2022-10-18 10:44] VITALS: BP 142/74; PULSE 77; O2SAT 96; BMI 27.4
--- NOTE | 2022-10-18 10:44 | MHC.PC.OV ---
Vital Signs 10/18/22 10:44 Height 5 ft 7 in Weight 175 lb 4 oz BMI 27.4 BP 142/74 H Blood Pressure Location Lt brachial Position Sitting Pulse 77 Pulse Source Pulse Oximeter Pulse Oximetry (%) 96 Oxygen Delivery Method Room Air Intake Visit Reasons: 4 Month follow up Allergies No Known Allergies [No Known Allergies*] Allergy (Verified 10/18/22 10:46) Tobacco use date assessed: 10/18/22 Fall risk assessment: No Falls in past year Last assessed Fall Risk: 10/18/22 Dental Screening Dental Screen Date: 10/18/22 Did you have a dental visit in the last 12 months?: Yes Did you have a dental problem in the last 6 months where you did not have access to dental care?: No Was dental information given to patient?: Patient has dentist HPI 4 Month follow up HPI Details Pt is a diabetic, on an ARB and a statin. Last A1C was 5.8, microalbumin is up to date. Denies polyuria, polydipsia, and neuropathy. Pt denies any signs and symptoms of hypoglycemia and does know how to correct it. Pt sees a hosiery repairer. Anemia noted on last labs, will order FIT testing along with further labs. Pt denies any dizziness, N/V, CP or SOB. Reports BPs at home are in the 130s/70s [facility] Medical History Acquired hammertoes of both feet Carotid artery stenosis CKD (chronic kidney disease) stage 3, GFR 30-59 ml/min COPD (chronic obstructive pulmonary disease) Dyslipidemia Eczema Hearing loss HTN (hypertension) Plantar callus Prostate CA PVD (peripheral vascular disease) Type 2 diabetes mellitus without complication, without long-term current use of insulin Surgical History H/O colonoscopy with polypectomy History of angioplasty History of atherectomy History of cataract surgery History of cataract surgery History of endarterectomy History of left-sided carotid endarterectomy Status post aortography with runoff Family History Father Medical history non-contributory Mother Medical history non-contributory Son No problems noted. Daughter No problems noted. Daughter No problems noted. Social History Housing: House Alcohol intake: current Patient Tobacco Use Status: Former Tobacco user Years Smoked: quit 25 years ago e-Cigarette/Vaping Use: Never Used Second Hand Smoke Exposure: No service: Yes Current occupational status: retired Cognitive needs: No Hearing needs: No Vision needs: No Questionnaire Thrive Questionnaire Date Thrive assessed: 10/04/21 ELISABET-7 AMB Questionnaire ELISABET-7 Date ELISABET - 7 assessed: 10/04/21 Source: Developed by Drs. Larry Ohara, Luci Anglin, Charlie Lees and colleagues, with an educational deanna from [employer]. Review of Systems Const Reports as per HPI Physical exam (Primary Care) Vital Signs: Last Vital Signs Pulse 77 10/18/22 10:44 BP 142/74 H 10/18/22 10:44 Pulse Ox 96 10/18/22 10:44 Oxygen Delivery Method Room Air 10/18/22 10:44 BMI result Body Mass Index 27.4 Tobacco/Smoking Status: Tobacco use Status Tobacco use date assessed 10/18/22 10/18/22 10:47 Patient Tobacco Use Status Former Tobacco user 10/18/22 10:47 e-Cigarette/Vaping Use Never Used 10/18/22 10:47 Thrive Assessment: Date of Thrive Assessment Date Thrive assessed 10/04/21 10/18/22 10:47 Const General: cooperative Orientation/consciousness: patient oriented x3 Neuro General: patient oriented x3 Extrem Other: bilat feet: + sensation with use of monofilament, feet intact Right lower extremity: no edema Left lower extremity: no edema Psych Appearance: grossly normal Mental Status: mental status grossly normal Speech and movement: Normal speech and movement present Affect: normal affect Attitude: cooperative Thought process: Normal thought process present Thought content: Normal thought content present Insight: Good insight present (Psych) Judgement: Good judgement present (Psych) Assessment and Plan Assessment & Plan (1) HTN (hypertension): Code(s): I10 - Essential (primary) hypertension (2) Anemia: Code(s): D64.9 - Anemia, unspecified (3) Type 2 diabetes mellitus without complication, without long-term current use of insulin: Code(s): E11.9 - Type 2 diabetes mellitus without complications Plan The patient agreed to the use of a medical technologist blood bank for this encounter. Scribed for Cristhian Durán [facility] by Mitra Garza, medical technologist blood bank, on 10/18/2022 at 10:55 EST. Orders: Orders Vitamin B12 and Folate Today D64.9 - Anemia, unspecified, I10 - Essential (primary) hypertension Comprehensive [place]. Panel Fast Today D64.9 - Anemia, unspecified, I10 - Essential (primary) hypertension Ferritin Today D64.9 - Anemia, unspecified, I10 - Essential (primary) hypertension IRON PROFILE Today D64.9 - Anemia, unspecified, I10 - Essential (primary) hypertension Lipid Panel Today D64.9 - Anemia, unspecified, I10 - Essential (primary) hypertension TSH reflex Free T4 Today D64.9 - Anemia, unspecified, I10 - Essential (primary) hypertension Complete Blood Count Auto Diff Today D64.9 - Anemia, unspecified, I10 - Essential (primary) hypertension Reticulocyte Count Today D64.9 - Anemia, unspecified, I10 - Essential (primary) hypertension UA CC w/rflx Micro + Cult Today D64.9 - Anemia, unspecified, I10 - Essential (primary) hypertension Hemoglobin Electrophoresis Today D64.9 - Anemia, unspecified FITS Today D64.9 - Anemia, unspecified Medications: Refilled blood sugar diagnostic (Cicer[employer] Ultra Test strips) Use to check blood sugar daily 100 ea 8RF E11.9 - Type 2 diabetes mellitus without complications Coding Level of Care Code Est Pt Level 3 (34982) Diagnoses HTN (hypertension) I10 Anemia D64.9 Type 2 diabetes mellitus without complication, without long-term current use of insulin E11.9
== END 2022-10-18 12:10 | disposition home or self-care (01) ==
PROVIDERS: Visit Provider Nurse Practitioner Family
DX: I10 Essential (primary) hypertension (principal); D64.9 Anemia, unspecified; E11.9 Type 2 diabetes mellitus without complications
CPT/HCPCS: 99213

== ENCOUNTER 2022-10-22 | Outpatient (REF) | payer MEDICARE, SELFPAY ==
[2022-10-24 12:01] LABS: FIT1 NEGATIVE (NEGATIVE)
[2022-10-24 12:02] LABS: FIT Int Ctl YES; FIT2 NEGATIVE (NEGATIVE)
== END 2022-10-22 00:01 | disposition home or self-care (01) ==
LOC: HO.HMGCLNP
PROVIDERS: PCP Nurse Practitioner Family; Visit Provider Nurse Practitioner Family
DX: D64.9 Anemia, unspecified (principal)
CPT/HCPCS: 82274

== ENCOUNTER 2022-10-25 09:26 | Outpatient (REF) | payer MEDICARE, SELFPAY ==
--- NOTE | ~2022-10-25 | CT_ITS ---
EXAMINATION: CT ANGIOGRAM NECK CLINICAL INFORMATION: 82-year-old with 50-79% diameter reduction stenosis of the right ICA by ultrasound. Left ICA plaque noted by ultrasound. COMPARISON: 08/01/2022 carotid ultrasound. TECHNIQUE: Volumetric CT angiography of the neck was performed from the upper thorax to the mid head utilizing the bolus intravenous administration of 70 mL of Omnipaque 350 contrast material. 2-D multiplanar reconstructions and 3-D MIP renderings were performed either on an independent workstation or at the CT console workstation. The degree of stenosis determined by NASCET criteria. This CT examination was performed using dose optimization techniques as appropriate, variously including the following: *Automated exposure control *Adjustment of mA and/or kV according to patient size (this includes techniques or standardized protocols for targeted exams where dose is matched to indication/reason for exam; i.e. extremities or head) *Use of iterative reconstruction technique DLP: 448 mGy-cm FINDINGS: Nonvascular Images: Centrilobular pulmonary emphysematous changes are noted in the visualized lung parenchyma bilaterally. The visualized mediastinum is grossly unremarkable. Soft tissue neck structures are unremarkable for an acute process. The visualized intracranial structures demonstrate no acute process. 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 Skeletal: Right-sided TMJ arthrosis. Left-sided mastoid effusion. Multilevel cervical DDD and spondylosis between C3-C4 and C6-C7 inclusive, with mild anterolisthesis at C2-C3, with multilevel bilateral cervical DJD. CTA: Fairly extensive noncalcified and scattered calcified plaques seen within the visualized thoracic aortic arch, which is incompletely seen. Small focus of plaque ulceration noted along the cephalad aspect of the distal arch measuring 1 cm. Normal three-vessel arch configuration noted, with fairly extensive partially calcified plaque at the origin of the left subclavian artery, with suggestion of at least moderate focal stenosis. Proximal left common carotid artery is patent and normal in caliber. The innominate artery is patent and normal in caliber. There is calcified plaque at the origin of the right CCA and right subclavian artery. Probable mild narrowing of the origin of the right CCA. The right vertebral artery appears hypoplastic and is not visualized proximal to the V3 segment suggesting segmental occlusion of the right vertebral artery. The origin of the right vertebral artery is barely visualized. There is a large, dominant left vertebral artery which is normal in caliber and patent. There is calcified plaque in the V4 segment of the left vertebral artery without significant focal stenosis. Right Carotid: There is calcified plaque at the right carotid bifurcation and distal CCA, with less than 50% diameter reduction stenosis at the origin of the right CCA by NASCET criteria. The ECA is patent and normal in caliber. More distally, the mid right ICA is tortuous but demonstrates no significant focal stenosis. Distal right CCA is normal in caliber. Left Carotid: Common carotid artery is normal in caliber. There is some noncalcified plaque with luminal irregularity in the proximal left ICA/carotid bulb with suspicion for very small foci of plaque ulceration with no significant diameter reduction stenosis. There is tortuosity of the left ICA more distally without significant focal stenosis. There is calcified plaque at the origin of the left ECA with mild narrowing proximally. The visualized intracranial ICAs demonstrate extensive mural calcifications of both carotid siphons, with predominantly mild luminal narrowing bilaterally. Hypoplastic right A1 segment. Visualized proximal SHELIA and MCA branches demonstrate no significant focal stenosis or segmental occlusion. 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 CT/CT angio neck IMPRESSION: 1. Calcified plaque at the right carotid bifurcation and distal right CCA, with less than 50% diameter reduction stenosis at the origin of the right CCA. 2. Calcified plaque at the left carotid bifurcation, with suspicion for very small foci of plaque ulceration in the proximal left ICA/carotid bulb, with no significant diameter reduction stenosis. 3. Calcified plaque at the origin of the left subclavian artery with suggestion of at least moderate focal stenosis. Focal plaque ulceration along the superior aspect of the distal aortic arch measuring 1 cm. 4. The mid right vertebral artery is not visualized suggesting segmental occlusion of a hypoplastic right vertebral artery. The dominant left vertebral artery is patent. 5. Extensive mural calcifications of both carotid siphons, with mild luminal narrowing bilaterally. Calcified plaque in the intradural segment of the left vertebral artery without significant focal stenosis. 6. Pulmonary findings, as discussed above. 7. Absence of the left submandibular gland. Correlate for any clinical history of previous left submandibular gland resection. 8. Cervical degenerative changes. 9. Small left mastoid effusion.
[2022-10-25] MEDS: iohexoL 350 MG/ML 100 ML INFUS..BTL IV (09:59)
== END 2022-10-25 09:27 | disposition home or self-care (01) ==
LOC: HO.CT 09:26
PROVIDERS: PCP Nurse Practitioner Family; Visit Provider Surgery Vascular Surgery
DX: I65.23 Occlusion and stenosis of bilateral carotid arteries (principal)
CPT/HCPCS: 70498; Q9967

== ENCOUNTER 2022-11-02 06:20 | Outpatient (REF) | payer MEDICARE, SELFPAY ==
[2022-11-02 12:02] LABS: Appearance Urine Clear; Color Urine Yellow; Glucose Urine UA Negative (Negative); Leukocyte Esterase Urine Negative (Negative); Nitrite Urine Negative (Negative); PH 5.5 (5.0-9.0); Urine Blood Negative (Negative); Urine Ketones Negative (Negative); Urine Protein Negative (Neg-Trace)
[2022-11-02 12:13] LABS: MANUAL DIFF FLAG NO
[2022-11-02 12:19] LABS: Basophils Percent Auto 0.8 % (0-2); Eosinophils Absolute Auto 0.2 X10*3/uL (0.0-0.4); Eosinophils Percent Auto 5.1 % (0-4); Hematocrit 37.4 % (42.0-52.0); Hemoglobin 11.5 g/dl (14.0-18.0); Imm Gran Abs Auto 0.01 X10*3/uL (0.00-0.03); Imm Gran Pct Auto 0.3 % (0.0-0.4); Immature Retic Fraction 13.6 % (2.3-13.4); Lymphocytes Absolute Auto 1.3 X10*3/uL (1.2-4.9); Lymphocytes Percent Auto 34.9 % (20-40); Mean Corpuscular HGB Conc 30.7 g/dl (31.0-36.0); Mean Corpuscular Hemoglobin 29.4 pg (27.0-33.0); Mean Corpuscular Volume 95.7 fL (80.0-98.0); Mean Platelet Volume 11.2 fL (9.4-12.4); Monocytes Absolute Auto 0.3 X10*3/uL (0.1-1.2); Monocytes Percent Auto 8.1 % (2-11); Neutrophils Absolute Auto 1.9 x10*3/uL (2.0-8.3); Neutrophils Percent Auto 50.8 % (45-73); Platelet Count 180 X10*3/uL (160-400); Red Blood Count 3.91 X10*6/uL (4.60-5.80); Red Cell Distribution Width 16.5 % (11.0-16.0); Retic HGB Equivalent 33.9 pg (30.0-35.0); Reticulocyte Percent 1.5 % (0.5-1.8); Reticulocytes Absolute 0.059 X10*6/uL (0.026-0.095); White Blood Count 3.7 X10*3/uL (4.8-10.8)
[2022-11-02 12:54] LABS: Alanine Aminotransferase 9 U/L (0-40); Albumin Level 3.8 g/dL (3.5-5.0); Alkaline Phosphatase 34 U/L (39-117); Anion Gap 9 (12-20); Aspartate Amino Transferase 19 U/L (5-37); Bilirubin Total 0.5 mg/dL (0.0-1.0); Blood Urea Nitrogen 21 mg/dL (9-16); Calcium 9.4 mg/dL (8.4-10.2); Carbon Dioxide 26 mmol/L (22-29); Chloride 113 mmol/L (96-108); Cholesterol 111 mg/dL (<200); Estimated Glomerular Filt Rate 55; Glucose Fasting 130 mg/dL (60-99); HDL Cholesterol 24 mg/dL (>40); Iron 103 mcg/dL (45-160); LDL Cholesterol Calculated 49 mg/dL (<100); Percent Iron Saturation 26 % (15-50); Potassium 4.3 mmol/L (3.3-5.1); Sodium 144 mmol/L (135-145); Total Iron Binding Capacity 402 mcg/dL (228-428); Total Protein 6.4 g/dL (6.5-8.0); Triglycerides 193 mg/dL (<150); Unsaturated Iron Binding 299 ug/dL
[2022-11-02 13:20] LABS: Ferritin 54 ng/mL (20-250); TSH reflex Free T4 6.09 uIU/mL (0.32-4.0)
[2022-11-02 13:25] LABS: Folate 9.5 ng/mL (> or = 4.0); Vitamin B12 177 pg/mL (200-900)
[2022-11-02 14:17] LABS: Free T4 (Free Thyroxine) 0.96 ng/dL (0.71-1.85)
[2022-11-03 23:09] LABS: Hematocrit 35.7 % (38.5-50.0); Hemoglobin 11.6 g/dL (13.2-17.1); MCH 29.4 pg (27.0-33.0); MCV 90.4 fL (80.0-100.0); RBC 3.95 Million/uL (4.20-5.80); RDW 14.2 % (11.0-15.0)
== END 2022-11-02 06:21 | disposition home or self-care (01) ==
LOC: HO.HMGCLDS 06:20
PROVIDERS: PCP Nurse Practitioner Family; Visit Provider Nurse Practitioner Family
DX: I10 Essential (primary) hypertension (principal); D64.9 Anemia, unspecified
CPT/HCPCS: 36415; 80053; 80061; 81003; 82607; 82728; 82746; 83020; 83540; 84439; 84443; 85014; 85018; 85025; 85041; 85045

== ENCOUNTER 2022-11-08 08:51 | Outpatient (REF) | payer MEDICARE, SELFPAY ==
[2022-11-08 12:01] LABS: Blood Urea Nitrogen 21 mg/dL (9-16); Estimated Glomerular Filt Rate 58
[2022-11-08 12:11] LABS: TSH reflex Free T4 4.42 uIU/mL (0.32-4.0)
[2022-11-08 12:30] LABS: Folate 9.4 ng/mL (> or = 4.0); Vitamin B12 < 148 pg/mL (200-900)
[2022-11-08 12:44] LABS: Free T4 (Free Thyroxine) 0.96 ng/dL (0.71-1.85)
[2022-11-10 10:14] LABS: Thyroid Peroxidase Antibodies 5 IU/mL (<9)
[2022-11-12 23:29] LABS: Intrinsic Factor Antibodies Negative (Negative)
[2022-11-18 23:33] LABS: Parietal Cell Antibody 22.1 Unit (<=20.0)
== END 2022-11-08 08:52 | disposition home or self-care (01) ==
LOC: HO.HMGCLDS 08:51
PROVIDERS: PCP Nurse Practitioner Family; Visit Provider Nurse Practitioner Family
DX: E53.8 Deficiency of other specified B group vitamins (principal); I65.23 Occlusion and stenosis of bilateral carotid arteries; R94.6 Abnormal results of thyroid function studies
CPT/HCPCS: 36415; 82565; 82607; 82746; 83516; 84439; 84443; 84520; 86340; 86376

== ENCOUNTER 2022-11-17 09:46 | Outpatient (AMB) | payer MEDICARE, SELFPAY ==
--- NOTE | 2022-11-17 09:45 | AM.OFFVISNUR ---
Intake Intake Visit Reasons: b12 shot Intake Note: Injection #1 of 4 Allergies No Known Allergies [No Known Allergies*] Allergy (Verified 10/18/22 10:46) Office Meds cyanocobalamin (vitamin B-12) 1,000 mcg/mL injection solution Performing Provider: KLAUDIA Morales Performing Location: [facility] [place] [facility] Administered by: Ness Radford RN on 11/17/22 09:50 Dose Route Admin Location Dispensed Lot Number Expiration Date [facility] Criminal Analyst 1,000 mcg IM Left Deltoid 1 mL [id number] 01/13/24 7367-0487-13 [facility] Comments: Pt supplied Coding Assessment & Plan Assessment & Plan Orders: Orders AMB Vitamin B12 Injection Patient Supplied Today E53.8 - Deficiency of other specified B group vitamins
== END 2022-11-17 11:10 | disposition home or self-care (01) ==
LOC: HO.HMGC 09:46
PROVIDERS: PCP Nurse Practitioner Family; Visit Provider Nurse Practitioner Family
DX: E53.8 Deficiency of other specified B group vitamins (principal)
CPT/HCPCS: 96372; J3420

== ENCOUNTER 2022-11-24 09:07 | Outpatient (AMB) | payer MEDICARE, SELFPAY ==
--- NOTE | 2022-11-24 09:08 | AM.OFFVISNUR ---
Intake Intake Visit Reasons: B12 Intake Note: #2 of 4 weekly. Allergies No Known Allergies [No Known Allergies*] Allergy (Verified 10/18/22 10:46) Office Meds cyanocobalamin (vitamin B-12) 1,000 mcg/mL injection solution Performing Provider: KLAUDIA Morales Performing Location: [facility] [place] [facility] Administered by: Ness Radford RN on 11/24/22 09:17 Dose Route Admin Location Dispensed Lot Number Expiration Date [facility] Hair Clipper [employer] 1,000 mcg IM Left Deltoid 1 mL [id number] 01/13/24 3243-7080-49 [facility] Comments: Pt supplied Coding Assessment & Plan Assessment & Plan Orders: Orders AMB Vitamin B12 Injection Patient Supplied Today E53.8 - Deficiency of other specified B group vitamins
== END 2022-11-24 09:46 | disposition home or self-care (01) ==
LOC: HO.HMGC 09:07
PROVIDERS: PCP Nurse Practitioner Family; Visit Provider Nurse Practitioner Family
DX: E53.8 Deficiency of other specified B group vitamins (principal)
CPT/HCPCS: 96372; J3420

== ENCOUNTER 2022-12-01 09:03 | Outpatient (AMB) | payer MEDICARE, SELFPAY ==
--- NOTE | 2022-12-01 09:47 | AM.OFFVISNUR ---
Intake Intake Visit Reasons: B12 Intake Note: #3 of 4 weekly Allergies No Known Allergies [No Known Allergies*] Allergy (Verified 10/18/22 10:46) Office Meds cyanocobalamin (vitamin B-12) 1,000 mcg/mL injection solution Performing Provider: KLAUDIA Morales [place] [facility] [place] [facility] Administered by: Ness Radford RN on 12/01/22 09:47 Dose Route Admin Location Dispensed Lot Number Expiration Date [facility] Coupling Machine Operator 1,000 mcg IM Left deltoid 1 mL [id number] 01/13/24 [id number] [facility] Comments: Pt supplied Coding Assessment & Plan Assessment & Plan Orders: Orders AMB Vitamin B12 Injection Patient Supplied Today E53.8 - Deficiency of other specified B group vitamins
== END 2022-12-01 11:00 | disposition home or self-care (01) ==
LOC: HO.HMGC 09:03
PROVIDERS: PCP Nurse Practitioner Family; Visit Provider Nurse Practitioner Family
DX: E53.8 Deficiency of other specified B group vitamins (principal)
CPT/HCPCS: 96372; J3420

== ENCOUNTER 2022-12-07 09:02 | Outpatient (AMB) | payer MEDICARE, SELFPAY ==
--- NOTE | 2022-12-07 09:14 | AM.OFFVISNUR ---
Intake Intake Visit Reasons: B12 Intake Note: #4 of weekly injections. Pt aware to return in 2 weeks. Allergies No Known Allergies [No Known Allergies*] Allergy (Verified 10/18/22 10:46) Office Meds cyanocobalamin (vitamin B-12) 1,000 mcg/mL injection solution Performing Provider: KLAUDIA Morales [facility] Administered by: Ness Radford RN on 12/07/22 09:12 Dose Route Admin Location Dispensed Lot Number Expiration Date [place] [employer] Operator 1,000 mcg IM Left deltoid 1 mL [id number] 01/13/24 8783-0001-15 [facility] Comments: Pt supplied Coding Assessment & Plan Assessment & Plan Orders: Orders AMB Vitamin B12 Injection Patient Supplied Today E53.8 - Deficiency of other specified B group vitamins
== END 2022-12-07 11:04 | disposition home or self-care (01) ==
PROVIDERS: PCP Nurse Practitioner Family; Visit Provider Nurse Practitioner Family
DX: E53.8 Deficiency of other specified B group vitamins (principal)
CPT/HCPCS: 96372; J3420

== ENCOUNTER 2022-12-22 09:38 | Outpatient (AMB) | payer MEDICARE, SELFPAY ==
--- NOTE | 2022-12-22 09:21 | AM.OFFVISNUR ---
Intake Intake Visit Reasons: B12 Shot Intake Note: Pt arrived for B12 injection, 2 weeks since last injection. He will return 01/04/23 due to office closed 01/05 & 01/06/23. Allergies No Known Allergies [No Known Allergies*] Allergy (Verified 10/18/22 10:46) Office Meds cyanocobalamin (vitamin B-12) 1,000 mcg/mL injection solution Performing Provider: KLAUDIA Morales Performing Location: [facility] [place] [facility] Administered by: Cici Van RN on 12/22/22 09:21 Dose Route Admin Location Dispensed Lot Number Expiration Date [facility] Iron Erector 1,000 mcg IM 1 mL [id number] 12/15/23 4928-5139-07 [facility] Comments: Pt supplied Coding Assessment & Plan Assessment & Plan Orders: Orders AMB Vitamin B12 Injection Patient Supplied Today E53.8 - Deficiency of other specified B group vitamins
== END 2022-12-22 11:18 | disposition home or self-care (01) ==
LOC: HO.HMGC 09:38
PROVIDERS: PCP Nurse Practitioner Family; Visit Provider Nurse Practitioner Family
DX: E53.8 Deficiency of other specified B group vitamins (principal)
CPT/HCPCS: 96372; J3420

== ENCOUNTER 2022-12-27 10:45 | Outpatient (AMB) | payer MEDICARE, SELFPAY ==
--- NOTE | 2022-12-27 10:47 | MHC.OFFVIS ---
Intake Vital Signs 12/27/22 10:48 Height 5 ft 7 in Weight 177 lb BMI 27.7 Intake Visit Reasons: Follow up CTA Neck Intake Note: Follow up CTA Neck 10/25/22, Hx of Left CEA 11/20/2018. Pt states no issues Accompanied by: Spouse Allergies No Known Allergies [No Known Allergies*] Allergy (Verified 12/27/22 10:52) HPI Follow up CTA Neck HPI Details Very pleasant 82-year-old gentleman presents for follow-up regarding carotid disease. He had a left carotid endarterectomy performed nearly 4 years ago. He had a surveillance ultrasound which was concerning for his right carotid which had an elevated peak systolic of 327. He has remained asymptomatic. He reports that he does remain active in goes to the gym 4 to 5 times a week and walks nearly a mi on the treadmill with no difficulty. He has undergone CT angiogram of the carotids. He now presents for follow-up [facility] Medical History CKD (chronic kidney disease) stage 3, GFR 30-59 ml/min Plantar callus Acquired hammertoes of both feet Type 2 diabetes mellitus without complication, without long-term current use of insulin Eczema Hearing loss Prostate CA HTN (hypertension) PVD (peripheral vascular disease) Carotid artery stenosis COPD (chronic obstructive pulmonary disease) Dyslipidemia Surgical History History of left-sided carotid endarterectomy Status post aortography with runoff History of atherectomy History of angioplasty H/O colonoscopy with polypectomy History of endarterectomy History of cataract surgery History of cataract surgery Family History Father Medical history non-contributory Mother Medical history non-contributory Son No problems noted. Daughter No problems noted. Daughter No problems noted. Social History Housing: House Alcohol intake: current Patient Tobacco Use Status: Former Tobacco user Years Smoked: quit 25 years ago e-Cigarette/Vaping Use: Never Used Second Hand Smoke Exposure: No service: Yes Current occupational status: retired Cognitive needs: No Hearing needs: No Vision needs: No Review of Systems Const All systems reviewed & are unremarkable except as noted in HPI and below Reports no additional complaints ENT Reports Normal hearing present Card Denies chest pain, Denies chest pain at rest, Denies chest pain with activity and Denies pedal edema Resp Denies cough GI Denies abdominal pain Musc Denies abnormal gait, Denies muscle cramps and Denies radiating pain into limb Skin/Breast Denies skin ulcer and Denies wounds Neuro Reports Normal hearing present and Denies abnormal gait Psych Reports no additional complaints Physical Exam Vital Signs: BMI result Body Mass Index 27.7 Const General: cooperative, healthy appearing and comfortable Orientation/consciousness: oriented to person, oriented to place and oriented to time HEENT Head: Yes normal to inspection Neck Neck: Yes normal visual inspection Carotids: no bruits Chest Chest palpation & inspection: normal inspection of the chest Resp Effort & Inspection: normal respiratory effort and able to speak in complete sentences Auscultation: clear to auscultation bilaterally, no crackles, no rales, no rhonchi and no wheezes Cardio Rate: regular rate Rhythm: regular rhythm Heart sounds: S1 normal heart sound present and S2 normal heart sound present Bruits: no carotid bruits Peripheral pulses: Peripheral pulses 2+ throughout GI Inspection: Yes normal to inspection Skin Wounds: no wounds Hair: normal Neuro General: oriented to person, oriented to place and oriented to time Cranial nerves: Yes CN's II-XII intact bilaterally and Yes Normal hearing present Cognition (Neuro): normal cognition Motor exam (neuro): 5/5 motor strength present throughout Extrem Other: venous exam: No significant superficial varicosities or spider telangiectasias, minimal edema General: No clubbing, No cyanosis and No edema Psych Appearance: grossly normal Mental Status: mental status grossly normal Speech and movement: Normal speech and movement present Results Reviewed Results Reviewed: CT angiogram of the carotids dated 10/25/2022 demonstrates right-sided less than 50% stenosis and left with no significant disease. Written report and images were reviewed. Assessment & Plan Assessment & Plan (1) Bilateral carotid artery stenosis: Comment: 11/20/2018 - left carotid endarterectomy Code(s): I65.23 - Occlusion and stenosis of bilateral carotid arteries Plan: In short patient has asymptomatic carotid disease. We have reviewed signs and symptoms of a stroke. We also discussed risk factor modification inclusive a healthy diet low in cholesterol. The patient will follow up with us with surveillance ultrasound of the carotids 1 year. Should there be any changes or signs or symptoms of a stroke we will be happy to see them back sooner. Thank you for allowing us to participate in this patient's care. If there are any questions or concerns please do not hesitate to contact us. Orders: Orders US carotid duplex BI 364 Days I65.23 - Occlusion and stenosis of bilateral carotid arteries Coding Level of Care Code Est Pt Level 4 (84023) Diagnoses Bilateral carotid artery stenosis I65.23
[2022-12-27 10:48] VITALS: BMI 27.7
== END 2022-12-27 11:19 | disposition home or self-care (01) ==
PROVIDERS: PCP Nurse Practitioner Family; Visit Provider Surgery Vascular Surgery
DX: I65.23 Occlusion and stenosis of bilateral carotid arteries (principal)
CPT/HCPCS: 99213

== ENCOUNTER → 2022-12-27 10:45 | Outpatient (BNVA) | payer MEDICARE, SELFPAY | PROVIDERS: PCP Nurse Practitioner Family; Visit Provider Surgery Vascular Surgery | DX: I65.23 Occlusion and stenosis of bilateral carotid arteries (principal) | CPT/HCPCS: 99212 ==

== ENCOUNTER 2023-01-04 08:59 | Outpatient (AMB) | payer MEDICARE, SELFPAY ==
--- NOTE | 2023-01-04 09:14 | AM.OFFVISNUR ---
Intake Intake Visit Reasons: B-12 Shot Intake Note: Pt arrived for 2 week B-12 injection. He is due for repeat labs in 2 weeks, he is aware. Allergies No Known Allergies [No Known Allergies*] Allergy (Verified 12/27/22 10:52) Office Meds cyanocobalamin (vitamin B-12) 1,000 mcg/mL injection solution Performing Provider: KLAUDIA Morales Performing Location: [facility] Administered by: Cici Van RN on 01/04/23 09:15 Dose Route Admin Location Dispensed Lot Number Expiration Date [employer] 1,000 mcg IM left deltoid 1 mL [id number] 12/15/23 [id number] [facility] Comments: Pt supplied Coding Assessment & Plan Assessment & Plan Orders: Orders AMB Vitamin B12 Injection Patient Supplied Today E53.8 - Deficiency of other specified B group vitamins
== END 2023-01-04 12:28 | disposition home or self-care (01) ==
LOC: HO.HMGC 08:59
PROVIDERS: PCP Nurse Practitioner Family; Visit Provider Nurse Practitioner Family
DX: E53.8 Deficiency of other specified B group vitamins (principal)
CPT/HCPCS: 96372; J3420

== ENCOUNTER 2023-01-16 08:24 | Outpatient (REF) | payer MEDICARE, SELFPAY ==
[2023-01-16 12:19] LABS: Folate 9.5 ng/mL (> or = 4.0); Vitamin B12 380 pg/mL (200-900)
== END 2023-01-16 08:25 | disposition home or self-care (01) ==
LOC: HO.HMGCLDS 08:24
PROVIDERS: PCP Nurse Practitioner Family; Visit Provider Nurse Practitioner Family
DX: E53.8 Deficiency of other specified B group vitamins (principal)
CPT/HCPCS: 36415; 82607; 82746

== ENCOUNTER 2023-01-27 06:28 | Outpatient (REF) | payer MEDICARE, SELFPAY ==
[2023-01-27 11:19] LABS: MANUAL DIFF FLAG NO
[2023-01-27 11:26] LABS: Basophils Percent Auto 0.6 % (0-2); Eosinophils Absolute Auto 0.3 X10*3/uL (0.0-0.4); Eosinophils Percent Auto 6.1 % (0-4); Hematocrit 37.1 % (42.0-52.0); Hemoglobin 11.4 g/dl (14.0-18.0); Imm Gran Abs Auto 0.03 X10*3/uL (0.00-0.03); Imm Gran Pct Auto 0.6 % (0.0-0.4); Lymphocytes Absolute Auto 1.4 X10*3/uL (1.2-4.9); Lymphocytes Percent Auto 26.7 % (20-40); Mean Corpuscular HGB Conc 30.7 g/dl (31.0-36.0); Mean Corpuscular Hemoglobin 28.9 pg (27.0-33.0); Mean Corpuscular Volume 94.2 fL (80.0-98.0); Mean Platelet Volume 11.8 fL (9.4-12.4); Monocytes Absolute Auto 0.3 X10*3/uL (0.1-1.2); Monocytes Percent Auto 6.5 % (2-11); Neutrophils Percent Auto 59.5 % (45-73); Platelet Count 151 X10*3/uL (160-400); Red Blood Count 3.94 X10*6/uL (4.60-5.80); Red Cell Distribution Width 15.5 % (11.0-16.0); White Blood Count 5.1 X10*3/uL (4.8-10.8)
[2023-01-27 11:43] LABS: Alanine Aminotransferase 10 U/L (0-40); Albumin Level 3.7 g/dL (3.5-5.0); Alkaline Phosphatase 48 U/L (39-117); Anion Gap 10 (12-20); Aspartate Amino Transferase 22 U/L (5-37); Bilirubin Total 0.4 mg/dL (0.0-1.0); Blood Urea Nitrogen 22 mg/dL (9-16); Carbon Dioxide 26 mmol/L (22-29); Chloride 110 mmol/L (96-108); Estimated Glomerular Filt Rate 52; Glucose Random 145 mg/dL (60-115); Magnesium 1.8 mg/dL (1.6-2.6); Phosphorus 2.6 mg/dL (2.7-4.5); Potassium 4.5 mmol/L (3.3-5.1); Sodium 141 mmol/L (135-145); Total Protein 6.3 g/dL (6.5-8.0); Uric Acid 5.2 mg/dL (3.4-7.0)
[2023-01-27 11:57] LABS: Vitamin D 25-OH Total 18.2 ng/mL (>30)
[2023-01-27 12:10] LABS: Creatinine Urine 80.83 mg/dL; Total Protein Urine Random < 7 mg/dL (<12)
[2023-01-27 12:11] LABS: Parathyroid Hormone Intact 38.7 pg/mL (8.7-77.1)
== END 2023-01-27 06:29 | disposition home or self-care (01) ==
LOC: HO.HMGCLDS 06:28
PROVIDERS: PCP Nurse Practitioner Family; Visit Provider Internal Medicine Nephrology
DX: N18.32 Chronic kidney disease, stage 3b (principal); I10 Essential (primary) hypertension; E11.9 Type 2 diabetes mellitus without complications; E83.42 Hypomagnesemia
CPT/HCPCS: 36415; 80053; 82306; 82570; 83735; 83970; 84100; 84156; 84550; 85025

== ENCOUNTER 2023-02-16 09:41 | Outpatient (AMB) | payer MEDICARE, SELFPAY ==
[2023-02-16 09:47] VITALS: BP 122/70
--- NOTE | 2023-02-16 09:47 | MHC.PC.OV ---
Vital Signs 02/16/23 09:47 Weight 179 lb BP 122/70 Blood Pressure Location Lt brachial Position Sitting Intake Visit Reasons: follow up Intake Note: Patient here to follow up on anemia. Allergies No Known Allergies [No Known Allergies*] Allergy (Verified 02/16/23 09:47) Tobacco use date assessed: 02/16/23 Fall risk assessment: No Falls in past year Last assessed Fall Risk: 02/16/23 Dental Screening Dental Screen Date: 02/16/23 Did you have a dental visit in the last 12 months?: Yes Did you have a dental problem in the last 6 months where you did not have access to dental care?: No Was dental information given to patient?: Patient has dentist HPI follow up HPI Details Pt is a diabetic, on an ARB and a statin. A1C in office today is 6.4, though anemia noted. Microalbumin is up to date. Denies polyuria, polydipsia, and neuropathy. Pt denies any signs and symptoms of hypoglycemia and does know how to correct it. Eye exam is up to date. Pt reports ongoing GERD symptoms. He is not taking omeprazole currently. Will send pantoprazole. Pt follows up with vascular, GI, urology, and nephrology. [facility] Medical History CKD (chronic kidney disease) stage 3, GFR 30-59 ml/min Plantar callus Acquired hammertoes of both feet Type 2 diabetes mellitus without complication, without long-term current use of insulin Eczema Hearing loss Prostate CA HTN (hypertension) PVD (peripheral vascular disease) Carotid artery stenosis COPD (chronic obstructive pulmonary disease) Dyslipidemia Surgical History History of left-sided carotid endarterectomy Status post aortography with runoff History of atherectomy History of angioplasty H/O colonoscopy with polypectomy History of endarterectomy History of cataract surgery History of cataract surgery Family History Father Medical history non-contributory Mother Medical history non-contributory Son No problems noted. Daughter No problems noted. Daughter No problems noted. Social History Housing: House Alcohol intake: current Patient Tobacco Use Status: Former Tobacco user Years Smoked: quit 25 years ago e-Cigarette/Vaping Use: Never Used Second Hand Smoke Exposure: No service: Yes Current occupational status: retired Cognitive needs: No Hearing needs: No Vision needs: No Questionnaire PHQ-9 Over the last 2 weeks, how often have you been bothered by any of the following problems? 1. Little interest or pleasure in doing things: not at all 2. Feeling down, depressed, or hopeless: not at all 3. Trouble falling or staying asleep, or sleeping too much: not at all 4. Feeling tired or having little energy: several days 5. Poor appetite or overeating: not at all 6. Feeling bad about yourself - or that you are a failure or have let yourself or your family down: not at all 7. Trouble concentrating on things, such as reading the newspaper or watching television: not at all 8. Moving or speaking so slowly that other people could have noticed. Or the opposite - being so fidgety or restless that you have been moving around a lot more than usual: not at all 9. Thoughts that you would be better off or of hurting yourself in some way: not at all Total score: 1 Depression Screening Interpretation: Negative Depression Screening Done: Yes [id number] - PHQ-9 Billing: Yes Source: Developed by Drs. Larry Ohara, Luci Anglin, Charlie Lees and colleagues, with an educational deanna from [employer]. Thrive Questionnaire Date Thrive assessed: 02/16/23 I am a: Patient What is your living situation today?: I have a steady place to live Within the past 12 months, did the food you bought not last and you didn't have the money to get more?: Never true Within the past 12 months, did you worry whether your food would run out before you got money to buy more?: Never true Do you have trouble paying for medicines?: No Do you have trouble getting transportation to medical appointments?: No Do you have trouble paying your heating and electricity bill?: No Do you have trouble taking care of your child, family member or friend?: No Do you have trouble with day-to-day activities such as bathing, preparing meals, shopping, managing finances, etc.?: No Are you currently unemployed and looking for a job?: No Are you interested in more education?: No ELISABET-7 AMB Questionnaire ELISABET-7 Date ELISABET - 7 assessed: 02/16/23 Feeling nervous, anxious, or on edge: 0 = Not at all Not being able to stop or control worryin = Not at all Worrying too much about different things: 0 = Not at all Trouble relaxin = Not at all Being so restless that it is hard to sit still: 0 = Not at all Becoming easily annoyed or irritable: 0 = Not at all Feeling afraid as if something awful might happen: 0 = Not at all Total ELISABET-7 score (0-4 normal; 5-9 mild; 10-14 moderate; 15-21 severe): 0 Source: Developed by Drs. Larry Ohara, Luci Anglin, Charlie Lees and colleagues, with an educational deanna from [employer]. ELISABET-7 Assessment Billing ELISABET-7 Assessment Tool: ELISABET-7 Assessment 40154 Review of Systems Const Reports as per HPI Physical exam (Primary Care) Vital Signs: Last Vital Signs BP 122/70 02/16/23 09:47 Tobacco/Smoking Status: Tobacco use Status Tobacco use date assessed 02/16/23 02/16/23 09:50 Patient Tobacco Use Status Former Tobacco user 02/16/23 09:50 e-Cigarette/Vaping Use Never Used 02/16/23 09:50 PHQ-9: PHQ-9 Score PHQ-9: Total score 1 02/16/23 10:41 Depression Screening Interpretation: Negative Thrive Assessment: Date of Thrive Assessment Date Thrive assessed 02/16/23 02/16/23 10:41 Const General: cooperative Orientation/consciousness: patient oriented x3 Resp Effort & Inspection: normal respiratory effort Auscultation: clear to auscultation bilaterally Cardio Rate: regular rate Rhythm: regular rhythm Heart sounds: S1 normal heart sound present, S2 normal heart sound present and Murmur heart sound present systolic (faint) Neuro General: patient oriented x3 Extrem Other: bilat feet: + sensation with use of monofilament, feet intact Psych Appearance: grossly normal Mental Status: mental status grossly normal Speech and movement: Normal speech and movement present Affect: normal affect Attitude: cooperative Thought process: Normal thought process present Thought content: Normal thought content present Insight: Good insight present (Psych) Judgement: Good judgement present (Psych) Results AMB Hemoglobin A1c AMB Hemoglobin A1c 6.4 % Last Edit by TODD Saldana on 02/16/23 10:22 Results Reviewed Results Reviewed: Laboratory Last Values Hgb A1c (Clinic) 6.4 % (4.0-6.0) H 02/16/23 10:21 Assessment and Plan Assessment & Plan (1) Type 2 diabetes mellitus without complication, without long-term current use of insulin: Code(s): E11.9 - Type 2 diabetes mellitus without complications Plan: Labs ordered Plan The patient agreed to the use of a medical grade shoemaker for this encounter. Scribed for KLAUDIA Jiang by Mitra Garza medical grade shoemaker, on 02/16/2023 at 10:00 EST. Orders: Orders Complete Blood Count Auto Diff Today E11.9 - Type 2 diabetes mellitus without complications TSH reflex Free T4 Today E11.9 - Type 2 diabetes mellitus without complications UA CC w/rflx Micro + Cult Today E11.9 - Type 2 diabetes mellitus without complications Lipid Panel Today E11.9 - Type 2 diabetes mellitus without complications Vitamin B12 and Folate Today E53.8 - Deficiency of other specified B group vitamins Comprehensive [place]. Panel Fast Today E11.9 - Type 2 diabetes mellitus without complications AMB Hemoglobin A1c Today E11.9 - Type 2 diabetes mellitus without complications Medications: New pantoprazole 20 mg PO DAILY 90 tabs 0RF Coding Level of Care Code Est Pt Level 3 (04964) Diagnoses Type 2 diabetes mellitus without complication, without long-term current use of insulin E11.9 Additional Codes ELISABET-7 Assessment Billing - ELISABET-7 Assessment Tool: ELISABET-7 Assessment [id number] ([id number])
== END 2023-02-16 10:22 | disposition home or self-care (01) ==
PROVIDERS: PCP Nurse Practitioner Family; Visit Provider Nurse Practitioner Family
DX: E11.9 Type 2 diabetes mellitus without complications (principal)
CPT/HCPCS: 83036; 99213

== ENCOUNTER 2023-03-22 09:25 | Outpatient (REF) | payer MEDICARE, SELFPAY ==
[2023-03-22 12:52] LABS: Prostate Specific Antigen 1.23 ng/mL (<0.05-4.0)
== END 2023-03-22 09:26 | disposition home or self-care (01) ==
LOC: HO.HMGCLDS 09:25
PROVIDERS: PCP Nurse Practitioner Family; Visit Provider Urology
DX: C61 Malignant neoplasm of prostate (principal); Z12.5 Encounter for screening for malignant neoplasm of prostate
CPT/HCPCS: 36415; 84153

== ENCOUNTER 2023-04-06 08:32 | Outpatient (AMB) | payer MEDICARE, SELFPAY ==
--- NOTE | 2023-04-06 08:34 | A.OFFVIS_ITS ---
Intake Intake Visit Reasons: 1Y PSA(set) Intake Note: Patient is Present for Follow Up PSA Urology Medication: None Antibiotic Allergies:None Blood Thinners: Aspirin Verified Pharmacy to send Medication: [facility] Denies any changes in medications Allergies No Known Allergies [No Known Allergies*] Allergy (Verified 04/06/23 08:38) HPI HPI Comments History of Present Illness Details Larry is a pleasant male. He seen for the following urologic conditions - prostate cancer Slight PSA rise Repeat in 6 months Minimal nocturia Prostate cancer Prior therapy with external beam radiation in 2004 PSA - 10/04 0.9, 04/07 0.7, 04/08 1.3 Associated comorbidities diabetes Recently found to have elevated BUN Imaging shows no abnormality of urinary tract PFSH Medical History CKD (chronic kidney disease) stage 3, GFR 30-59 ml/min Plantar callus Acquired hammertoes of both feet Type 2 diabetes mellitus without complication, without long-term current use of insulin Eczema Hearing loss Prostate CA HTN (hypertension) PVD (peripheral vascular disease) Carotid artery stenosis COPD (chronic obstructive pulmonary disease) Dyslipidemia Surgical History History of left-sided carotid endarterectomy Status post aortography with runoff History of atherectomy History of angioplasty H/O colonoscopy with polypectomy History of endarterectomy History of cataract surgery History of cataract surgery Family History Father Medical history non-contributory Mother Medical history non-contributory Son No problems noted. Daughter No problems noted. Daughter No problems noted. Social History Housing: House Alcohol intake: current Patient Tobacco Use Status: Former Tobacco user Years Smoked: quit 25 years ago e-Cigarette/Vaping Use: Never Used Second Hand Smoke Exposure: No service: Yes Current occupational status: retired Cognitive needs: No Hearing needs: No Vision needs: No Review of Systems Const Denies chills and Denies fever(s) Card Reports no additional complaints and Denies syncope Resp Denies cough GI Denies abdominal pain and Denies heartburn Reports as per HPI and Denies change in libido Neuro Denies syncope Psych Denies change in libido Endo Denies change in libido Physical Exam Const General: cooperative, healthy appearing, comfortable and no acute distress Orientation/consciousness: patient oriented x3 HEENT Face and sinus: Yes normal facial exam Mouth: moist mucous membranes Neck Neck: Yes normal visual inspection, Yes full ROM and Yes trachea midline Chest Chest palpation & inspection: normal inspection of the chest Resp Effort & Inspection: normal respiratory effort, able to speak in complete sentences and no respiratory distress GI Inspection: Yes normal to inspection Back/Spine/Pelvis Cervical Spine: normal cervical lordosis Thoracic/Lumbar Spine: thoracic and lumbar spine normal to inspection Skin General skin exam: no rashes or lesions noted Neuro General: patient oriented x3, gait normal, tone normal and moves all extremities Extrem General: Yes normal to inspection and Yes capillary refill normal Assessment & Plan Assessment & Plan (1) Prostate CA: Comment: EXBRT 2004 Code(s): C61 - Malignant neoplasm of prostate Plan Six-month follow-up Orders: Orders Prostate Specific Antigen 6 Months C61 - Malignant neoplasm of prostate Patient Instructions: Imaging studies, laboratory and physical exam results were discussed and reviewed in detail. No major barriers to patient understanding were identified. An opportunity to ask questions regarding the treatment plan was provided. All questions were answered. The patient expressed understanding and agreement with the above treatment plan. The patient is aware they should contact our office by phone for worsening of their current condition or the appearance of new urologic symptoms. Compliance is encouraged with any medications and followup testing that is ordered. It is a privilege to participate in the urologic care of your patient. If you have any questions or concerns regarding treatment for the above conditions, or other urologic issues, please do not hesitate to contact me. The office telephone contact is [phone]. This note is constructed using voice recognition software. While every effort has been made to ensure accuracy registered nurse ambulatory errors may have been included. Yours sincerely, Dr Hiren Reyes MD, RON [facility] - Urology Providers of Expert, Compassionate Care for the Genitourinary System Coding Level of Care Code Est Pt Level 4 (38978) Diagnoses Prostate CA C61
== END 2023-04-06 08:54 | disposition home or self-care (01) ==
PROVIDERS: Visit Provider Urology
DX: C61 Malignant neoplasm of prostate (principal)
CPT/HCPCS: 99213

== ENCOUNTER → 2023-04-06 08:32 | Outpatient (BNVA) | payer MEDICARE, SELFPAY | PROVIDERS: Visit Provider Urology | DX: C61 Malignant neoplasm of prostate (principal) | CPT/HCPCS: 99212 ==

== ENCOUNTER 2023-04-20 12:14 | Outpatient (REF) | payer MEDICARE, SELFPAY ==
[2023-04-20 13:32] LABS: Basophils Percent Auto 0.3 % (0-2); Eosinophils Absolute Auto 0.1 X10*3/uL (0.0-0.4); Eosinophils Percent Auto 0.5 % (0-4); Hematocrit 33.9 % (42.0-52.0); Hemoglobin 10.6 g/dl (14.0-18.0); Imm Gran Abs Auto 0.04 X10*3/uL (0.00-0.03); Imm Gran Pct Auto 0.4 % (0.0-0.4); Lymphocytes Percent Auto 8.7 % (20-40); MANUAL DIFF FLAG NO; Mean Corpuscular HGB Conc 31.3 g/dl (31.0-36.0); Mean Corpuscular Hemoglobin 28.3 pg (27.0-33.0); Mean Corpuscular Volume 90.4 fL (80.0-98.0); Mean Platelet Volume 10.5 fL (9.4-12.4); Monocytes Absolute Auto 0.5 X10*3/uL (0.1-1.2); Monocytes Percent Auto 4.5 % (2-11); Neutrophils Absolute Auto 9.5 x10*3/uL (2.0-8.3); Neutrophils Percent Auto 85.6 % (45-73); Platelet Count 295 X10*3/uL (160-400); Red Blood Count 3.75 X10*6/uL (4.60-5.80); White Blood Count 11.1 X10*3/uL (4.8-10.8)
[2023-04-20 13:46] LABS: Alanine Aminotransferase 9 U/L (0-40); Albumin Level 3.4 g/dL (3.5-5.0); Alkaline Phosphatase 49 U/L (39-117); Amylase 28 U/L (28-100); Aspartate Amino Transferase 18 U/L (5-37); Bilirubin Direct 0.3 mg/dL (0.0-0.5); Bilirubin Total 0.5 mg/dL (0.0-1.0); Lipase 15 U/L (8-78); Total Protein 6.5 g/dL (6.5-8.0)
== END 2023-04-20 12:15 | disposition home or self-care (01) ==
LOC: HO.10HDL 12:14
PROVIDERS: Visit Provider Internal Medicine
DX: R10.13 Epigastric pain (principal); R11.0 Nausea
CPT/HCPCS: 36415; 80076; 82150; 83690; 85025

== ENCOUNTER 2023-04-21 12:05 | Outpatient (REF) | payer MEDICARE, SELFPAY ==
--- NOTE | ~2023-04-21 | US_ITS ---
EXAMINATION: US ABDOMEN COMPLETE CLINICAL INFORMATION: Epigastric pain.. COMPARISON: None available. TECHNIQUE: Real-time imaging of the abdominal viscera. FINDINGS: PANCREAS: Normal. ABDOMINAL AORTA: The proximal, mid, and distal segments are normal in caliber. INFERIOR VENA CAVA: Visualized portions are normal. LIVER: Gallbladder wall thickness is 0.2 cm The liver is normal in size. The liver contour is normal. Parenchymal echogenicity is normal. No focal hepatic lesion. There is no intrahepatic biliary duct dilatation seen. GALLBLADDER: Normal. The gallbladder is physiologically distended without evidence of stones, sludge, polyps, wall thickening or pericholecystic fluid. COMMON BILE DUCT: Normal in caliber measuring 0.4 cm in diameter. RIGHT KIDNEY: There is anechoic cyst in upper midpole measuring 2.8 x 2.5 x 2.6 cm there is a small echogenic stone in the upper pole measuring 0.3 x 0.2 x 0.2 cm. There is no caliectasis or hydronephrosis right kidney measures 9.9 seen in maximum length.. LEFT KIDNEY: There are several anechoic cysts. The largest 2 cysts, upper pole measures 2.9 x 2.3 x 2.4 cm and a septated lower pole cyst measures 4.0 x 2.0 x 3.4 cm. No renal calculi or focal parenchymal lesions. There is no hydronephrosis The kidney measures 10.3 cm in maximum dimension. SPLEEN: Normal. The spleen measures 9.0 cm in maximum dimension. FREE FLUID: None. US/US abdomen complete IMPRESSION: 1. Bilateral renal cysts. There is a small nonobstructive echogenic stone upper pole right kidney and a septated cyst lower pole left kidney. 2. The rest of the abdominal ultrasound is unremarkable.
== END 2023-04-21 12:06 | disposition home or self-care (01) ==
LOC: HO.US 12:05
PROVIDERS: PCP Nurse Practitioner Family; Visit Provider Internal Medicine
DX: R10.10 Upper abdominal pain, unspecified (principal); R10.13 Epigastric pain
CPT/HCPCS: 76700

== ENCOUNTER 2023-04-24 11:17 | Emergency (ER) | payer MEDICARE, SELFPAY ==
--- NOTE | ~2023-04-24 | CT_ITS ---
EXAMINATION: CTA ABDOMEN AND PELVIS CLINICAL INFORMATION: Rule out mesenteric ischemia TECHNIQUE: Multiple axial images were obtained through the abdomen and pelvis before and after administration of 85 mL of Omnipaque 350 intravenously. Images were evaluated on independent dedicated 3-D workstation and 3-D images were reconstructed with concurrent radiologist supervision and subsequently interpreted. Specific vascular measurements are placed directly on the 3-D rendered images and are documented and stored in PACS. This CT examination was performed using dose optimization techniques as appropriate, variously including the following: *Automated exposure control. *Adjustment of mA and/or kV according to patient size (this includes techniques or standardized protocols for targeted exams where dose is matched to indication/reason for exam, i.e., extremities or head). *Use of iterative reconstruction technique. COMPARISON: CT abdomen and pelvis 02/22/2022 DLP: 438 mGy-cm. FINDINGS: VASCULAR: Abdominal aorta: Extensive atherosclerotic plaque throughout the abdominal aorta. Multiple small penetrating ulcers in the proximal and mid abdominal aorta. Large penetrating ulcer in the distal abdominal aorta measuring 1.3 x 0.8 cm. Iliac arteries: Patent with extensive atherosclerotic plaque Mesenteric arteries: Celiac artery is patent. The superior mesenteric artery and the jejunal branches are patent. The MARSHAL is patent. Renal arteries: Patent renal arteries NONVASCULAR: Lung Bases: The lungs are clear with no evidence of inflammation or nodules. Liver, Gallbladder, Biliary Tree: The liver is normal in size, shape, and attenuation. No focal hepatic lesion or biliary ductal dilatation is present. The gallbladder is physiologically distended with no wall thickening or pericholecystic fluid. Pancreas: Unremarkable. Spleen: Unremarkable. Adrenal Glands: Unchanged nodular adrenal thickening bilaterally. Kidneys and Ureters: The kidneys are normal in size. Multiple simple renal cysts bilaterally. Bladder: Unremarkable. Gastrointestinal Tract: Thickening of the ileum in the mid abdomen surrounded by mesenteric fat stranding and multiple phlegmonous collections. Bowel wall integrity in this region is questionable. Abdominal Wall: No hernia is demonstrated. Lymph Nodes: Normal. Pelvic Viscera: Unremarkable. Osseous Structures: Unremarkable. CT/CT angio abdomen pelvis IMPRESSION: 1. Segment of ileum in the mid abdomen with areas of wall thickening as well as areas of questionable integrity. There are phlegmonous collections surrounding this segment of bowel, consistent with early abscesses. These findings are concerning for inflammatory bowel disease versus malignancy. 2. Large penetrating ulcer in the distal abdominal aorta measuring 1.3 x 0.8 cm
[2023-04-24 11:29] VITALS: BP 131/59; PULSE 85; RESP 18; TEMP 36.6; O2SAT 98; BMI 27.1
--- NOTE | 2023-04-24 11:32 | ECG_ITS ---
Test Reason : abd pain Blood Pressure : / mmHG Vent. Rate : 082 BPM Atrial Rate : 084 BPM P-R Int : 000 ms QRS Dur : 096 ms QT Int : 394 ms P-R-T Axes : 000 055 030 degrees QTc Int : 460 ms Normal sinus rhythm Incomplete right bundle branch block Borderline ECG When compared with ECG of 24-JUL-2018 14:17, No significant changes seen Referred By: Zeyad Garcia Electronically Signed By:NELLIE EDMOND MD
--- NOTE | 2023-04-24 11:33 | ED.GENADULT ---
HPI - General Adult General Chief complaint: Abdominal Pain Stated complaint: abd pain Time Seen by Provider: 04/24/23 15:35 Source: patient and family (patient's ) Mode of arrival: ambulatory Limitations: no limitations History of Present Illness HPI narrative: Patient is an 83 year old assigned male at with a history of HTN, PVD, GERD, and Diabetes presenting to the emergency department today with abdominal pain after eating. Patient states that over the last week, every time he eats, he gets abdominal pain in the epigastric area. Patient states that he is able to tolerate fluids. Patient states that he has intermittent constipation. Patient states that he follows with Dr. Infante. Patient denies any dizziness, lightheadedness, nausea, vomiting, fever, chills, blurry vision, double vision, loss of vision, chest pain, difficulty breathing, shortness of breath, back pain, night sweats, pain with urination, increased urinary frequency, increased urinary urgency, blood in his urine or stool, syncope or a near syncopal episode, recent trauma or falls, bowel incontinence, bladder incontinence, bowel retention, bladder retention, or any other complaints at this time. Onset (ago): week(s) (1) Location: abdomen Severity: mild Severity scale (1-10): 3 Quality: aching and dull Pain Consistency: intermittent Relieving factors: none Exacerbating factors: eating Associated symptoms: denies other symptoms Treatments prior to arrival: none Related Data Home Medications Medication Instructions Recorded Confirmed flu vacc [id number](65yr up)-PF 240 ml IM 03/02/20 06/09/22 mcg/0.7 mL intramuscular syringe pneumoc 13-rocky conj-dip cr(PF) 0.5 0.5 ml IM DIRECTED 03/02/20 06/09/22 mL IM syringe methylcellulose (laxative) 500 mg 500 mg PO DAILY PRN 06/09/22 06/09/22 tablet (Citrucel) aspirin 81 mg tablet,delayed 81 mg PO DAILY 10/18/22 release magnesium 200 mg tablet 200 mg PO BID 12/27/22 cholecalciferol (vitamin D3) 25 25 mcg PO DAILY 02/16/23 mcg (1,000 unit) capsule irbesartan 75 mg tablet 150 mg PO DAILY 02/16/23 Previous Rx's Medication Instructions Recorded fluticasone propionate 50 1 spray intranasal DAILY #16 grams 03/20/22 mcg/actuation nasal spray,suspension fenofibrate 160 mg tablet 160 mg PO DAILY 90 days #90 tabs 04/06/22 cyanocobalamin (vitamin B-12) See Rx Instructions IM DAILY 1 11/14/22 1,000 mcg/mL injection solution week #6 mL metformin 500 mg tablet,extended 500 mg PO BID 90 days #180 tabs 12/01/22 release 24 hr pioglitazone 30 mg tablet 30 mg PO DAILY #90 tabs 12/07/22 ondansetron HCl 4 mg tablet 4 mg PO DAILY 90 days #90 tabs 12/08/22 diltiazem HCl 240 mg 240 mg PO DAILY #90 caps 01/12/23 capsule,extended release 24 hr atorvastatin 40 mg tablet 40 mg PO BEDTIME 90 days #90 tabs 01/18/23 pantoprazole 20 mg tablet,delayed 20 mg PO DAILY #90 tabs 02/16/23 release blood sugar diagnostic #100 ea 02/22/23 blood sugar diagnostic (OneTouch #100 ea 02/22/23 Ultra Test strips) trazodone 50 mg tablet 50 mg PO DAILY #90 tabs 03/14/23 Allergies Allergy/AdvReac Type Severity Reaction Status Date / Time No Known Allergies Allergy Verified 04/24/23 11:29 [No Known Allergies*] Review of Systems Constitutional: Constitutional: Reports no additional constitutional complaints, Denies chills, Denies fever(s), Denies night sweats and Reports weight loss Eyes: Eyes: Reports no additional eye complaints, Denies blurry vision, Denies change in vision, Denies diplopia, Denies eye discharge, Denies loss of vision and Denies eye pain ENT: Denies dizziness Cardiovascular: Cardiovascular: Reports no additional cardiovascular complaints, Denies chest pain, Denies lightheadedness, Denies Loss of Consciousness and Denies dyspnea Respiratory: Respiratory: Reports no additional respiratory complaints and Denies dyspnea Gastrointestinal: Gastrointestinal: Reports no additional gastrointestinal complaints, Reports abdominal pain, Denies melena, Denies hematochezia, Denies change in bowel habits and Denies change in stool character Genitourinary: Genitourinary: Reports no additional male genitourinary complaints, Denies hematuria, Denies oliguria, Denies difficulty urinating, Denies dysuria, Denies urinary frequency, Denies urinary hesitancy, Denies urinary incontinence and Denies urinary urgency Musculoskeletal: Musculoskeletal: Reports no additional musculoskeletal complaints, Denies numbness and Denies tingling Neurologic: Denies dizziness, Denies loss of vision, Denies numbness and Denies tingling Psychiatric: Psychiatric: Reports no additional psychiatric complaints Endocrine: Endocrine: Reports no additional endocrine complaints Hematologic/Lymphatic: Hematologic/Lymphatic: Reports no additional hematologic/lymphatic complaints Allergic/Immunologic: Allergic/Immunologic: Reports no additional allergic/immunologic complaints PMFSH Past Medical History Attestation statement: The following information was validated with the patient. (patient's validated all information) Source: old records reviewed, obtained from family (patient's provided additional history and confirmed the history provided by the patient.) and nursing notes reviewed Medical History (Updated 04/24/23 @ 18:32 by CHLOE Paredes) Elevated serum creatinine Encounter for annual wellness visit (AWV) in Medicare patient Screening PSA (prostate specific antigen) Plantar callus CKD (chronic kidney disease) stage 3, GFR 30-59 ml/min Acquired hammertoes of both feet Type 2 diabetes mellitus without complication, without long-term current use of insulin Eczema Hearing loss Prostate CA HTN (hypertension) PVD (peripheral vascular disease) Carotid artery stenosis COPD (chronic obstructive pulmonary disease) Dyslipidemia Surgical History History of left-sided carotid endarterectomy Status post aortography with runoff History of atherectomy History of angioplasty H/O colonoscopy with polypectomy History of endarterectomy History of cataract surgery History of cataract surgery Family History Family History Father Medical history non-contributory Mother Medical history non-contributory Son No problems noted. Daughter No problems noted. Daughter No problems noted. Social History Social History Housing: House Alcohol intake: current Patient Tobacco Use Status: Former Tobacco user Years Smoked: quit 25 years ago e-Cigarette/Vaping Use: Never Used Second Hand Smoke Exposure: No Advance Directives: No Advance Directives Information Provided: No service: Yes Current occupational status: retired Cognitive needs: No Hearing needs: No Vision needs: No Physical Exam ED Vital Signs: Vital Signs - 24 hr 04/24/23 11:29 04/24/23 18:27 Temperature 98 F 97.6 F Pulse Rate 85 91 Respiratory Rate 18 16 Blood Pressure 131/59 L 173/77 H Pulse Oximetry 98 96 Oxygen Delivery Method Room Air Room Air BMI result Body Mass Index 27.1 Course Course Course Narrative: RME: 83 yold male presents to the ED for abdominal pain and vomitting everytime he eats solid foods. 10 poounds wieght loss as per . labs ordered and UA. Patient to be-evaluated by ED provider. 2:36pm: Dr. Infante called and recommended patinet get an Abdominal CT angiogram to rule out mesenteric vascular disease. order placed Medications Administered Discontinued Medications Generic Name Dose Route Start Last Admin Trade Name Freq PRN Reason Stop Dose Admin Iohexol 100 ml 04/24/23 16:44 04/24/23 16:45 Iohexol 350 Mg/Ml 100 Ml Infus..Btl IV 04/24/23 16:45 85 ml ONCE ONE Administration Medical Decision Making Medical Decision Making [facility] Narrative: Patient is an 83 year old assigned male at with a history of HTN, PVD, GERD, and Diabetes presenting to the emergency department today with abdominal pain post eating, 10 lbs of weight loss, and for a CTA of the abdomen per Dr. Infante. Patient's physical exam was unremarkable. Patient's blood work was unremarkable. Patient's CTA of the abdomen and pelvis showed a segment of ileum in the mid abdomen with areas of wall thickening as well as areas of questionable integrity. There are phelgmonous collections surrounding the segment of bowel with thickening and questionable integrity which the radiologist speculates could be abscesses and further suggests these findings are concerning for inflammatory bowel disease vs. malignancy. Additionally, there is a large penetrating ulcer in the distal abdominal aorta measuring 1.3 x 0.8cm. I spoke to Dr. Infante, the patient's GI doctor, who recommended transfer to a tertiary care center. I spoke to the covering vascular surgeon who also recommended transfer to a tertiary care center. I explained my physical exam findings as well as all test results to the patient and the patient's . I answered all questions asked by the patient and the patient's . Patient and the patient's verbalized agreement and understanding with this treatment plan and transfer to a tertiary care center. 1901 --> Patient accepted by Dr. Matamoros in the [facility] ED. Spoke with Dr. Francois from the [facility] vascular service who stated he would consult on the case. Differential Diagnosis Differential Diagnoses: The differential diagnosis associated with the presentation includes Ischemic bowel Mesenteric dissection Aortic dissection Abdominal pain Admission/Observation Consideration of admission/observation: Escalation of care including admission/observation considered Patient to be transferred to tertiary care center. Consult Healthcare Provider Management of the patient was discussed with: Stove Fitter (spoke with the vascular and GI providers as noted in the MDM Rationale portion of this note.) Lab Data [facility] Lab Attestation statement: I reviewed the patient's lab results. My interpretation of these results are in the MDM Rationale portion of this note. 04/24/23 12:36 04/24/23 12:36 Labs: Lab Results 04/24/23 Range/Units 12:36 WBC 9.8 (4.8-10.8) X10*3/uL RBC 3.93 L (4.60-5.80) X10*6/uL Hgb 10.9 L (14.0-18.0) g/dl Hct 34.8 L (42.0-52.0) % MCV 88.5 (80.0-98.0) fL MCH 27.7 (27.0-33.0) pg MCHC 31.3 (31.0-36.0) g/dl RDW 15.0 (11.0-16.0) % Plt Count 459 H D (160-400) X10*3/uL MPV 9.5 (9.4-12.4) fL Immature Gran % (Auto) 1.0 H (0.0-0.4) % Neut % (Auto) 81.1 H (45-73) % Lymph % (Auto) 8.2 L (20-40) % Beauregard % (Auto) 8.6 (2-11) % Eos % (Auto) 0.9 (0-4) % Baso % (Auto) 0.2 (0-2) % Lymph # (Auto) 0.8 L (1.2-4.9) X10*3/uL Beauregard # (Auto) 0.8 (0.1-1.2) X10*3/uL Eos # (Auto) 0.1 (0.0-0.4) X10*3/uL Baso # (Auto) 0.0 (0.0-0.2) X10*3/uL Abs Immat Gran (auto) 0.10 H (0.00-0.03) X10*3/uL Absolute Neuts (auto) 7.9 (2.0-8.3) x10*3/uL Absolute Nucleated RBC 0.000 (0.0-0.012) X10*3/uL Nucleated RBC % (auto) 0.0 (0.0-0.2) /100WBC PT 14.9 H (11.1-13.3) SEC INR 1.2 H (0.9-1.1) APTT 35.1 (26.0-36.8) SEC Sodium 139 (135-145) mmol/L Potassium 4.0 (3.3-5.1) mmol/L Chloride 106 (96-108) mmol/L Carbon Dioxide 23 (22-29) mmol/L Anion Gap 14 (12-20) BUN 20 H (9-16) mg/dL Creatinine 1.22 (0.5-1.4) mg/dL Estim Creat Clear Calc 43.9 Estimated GFR 57 Random Glucose 144 H (60-115) mg/dL Calcium 9.4 (8.4-10.2) mg/dL Total Bilirubin 0.5 (0.0-1.0) mg/dL AST 21 (5-37) U/L ALT 12 (0-40) U/L Alkaline Phosphatase 81 (39-117) U/L Troponin I High Sens 6.6 (<3.5-35.0) ng/L Total Protein 6.6 (6.5-8.0) g/dL Albumin 3.2 L (3.5-5.0) g/dL Amylase 23 L (28-100) U/L Lipase 14 (8-78) U/L Independent Interpretation I performed an independent interpretation of an: CT Scan Interpretation: My interpretation is in agreement with the radiologist's impression of this imaging study. EXAMINATION: CTA ABDOMEN AND PELVIS CLINICAL INFORMATION: Rule out mesenteric ischemia TECHNIQUE: Multiple axial images were obtained through the abdomen and pelvis before and after administration of 85 mL of Omnipaque 350 intravenously. Images were evaluated on independent dedicated 3-D workstation and 3-D images were reconstructed with concurrent radiologist supervision and subsequently interpreted. Specific vascular measurements are placed directly on the 3-D rendered images and are documented and stored in PACS. This CT examination was performed using dose optimization techniques as appropriate, variously including the following: *Automated exposure control. *Adjustment of mA and/or kV according to patient size (this includes techniques or standardized protocols for targeted exams where dose is matched to indication/reason for exam, i.e., extremities or head). *Use of iterative reconstruction technique. COMPARISON: CT abdomen and pelvis 02/22/2022 DLP: 438 mGy-cm. FINDINGS: VASCULAR: Abdominal aorta: Extensive atherosclerotic plaque throughout the abdominal aorta. Multiple small penetrating ulcers in the proximal and mid abdominal aorta. Large penetrating ulcer in the distal abdominal aorta measuring 1.3 x 0.8 cm. Iliac arteries: Patent with extensive atherosclerotic plaque Mesenteric arteries: Celiac artery is patent. The superior mesenteric artery and the jejunal branches are patent. The MARSHAL is patent. Renal arteries: Patent renal arteries NONVASCULAR: Lung Bases: The lungs are clear with no evidence of inflammation or nodules. Liver, Gallbladder, Biliary Tree: The liver is normal in size, shape, and attenuation. No focal hepatic lesion or biliary ductal dilatation is present. The gallbladder is physiologically distended with no wall thickening or pericholecystic fluid. Pancreas: Unremarkable. Spleen: Unremarkable. Adrenal Glands: Unchanged nodular adrenal thickening bilaterally. Kidneys and Ureters: The kidneys are normal in size. Multiple simple renal cysts bilaterally. Bladder: Unremarkable. Gastrointestinal Tract: Thickening of the ileum in the mid abdomen surrounded by mesenteric fat stranding and multiple phlegmonous collections. Bowel wall integrity in this region is questionable. Abdominal Wall: No hernia is demonstrated. Lymph Nodes: Normal. Pelvic Viscera: Unremarkable. Osseous Structures: Unremarkable. CT/CT angio abdomen pelvis IMPRESSION: 1. Segment of ileum in the mid abdomen with areas of wall thickening as well as areas of questionable integrity. There are phlegmonous collections surrounding this segment of bowel, consistent with early abscesses. These findings are concerning for inflammatory bowel disease versus malignancy. 2. Large penetrating ulcer in the distal abdominal aorta measuring 1.3 x 0.8 cm Dictated By: Eliseo Espinoza MD Signed By: Electronically signed by Eliseo Espinoza MD 04/24/23 [id number] Radiology Impression Discussion of test interpretation with radiology: I have reviewed the radiologist's reading. Independent Historian Clinical information obtained from an independent historian. History obtained from or confirmed by: Spouse (patient's provided additional history and confirmed the history provided by the patient.) Critical Care Time Critical Care Time Critical Care Time: Yes Total Critical Care Time: 78 Attestation: I spent 78 minutes of Critical Care Time with this patient. This does not include time spent on separately reported billable procedures. Discharge Plan Discharge Clinical Impression: Penetrating ulcer of aorta Patient Disposition: [facility] Transfer Details: [facility] ED - accepted by Dr. Matamoros Prescriptions: No Action fluticasone propionate 50 mcg/actuation spray,suspension 1 spray intranasal DAILY Qty: 16 2RF fenofibrate 160 mg tablet 160 mg PO DAILY 90 Days Qty: 90 2RF cyanocobalamin (vitamin B-12) 1,000 mcg/mL solution See Rx Instructions IM DAILY 7 Days Qty: 6 0RF Rx Instructions: 1000mcg/ml injection weekly for 4 weeks, then every 2 weeks for one month intramuscularly daily; metformin 500 mg tablet extended release 24 hr 500 mg PO BID 90 Days Qty: 180 1RF pioglitazone 30 mg tablet 30 mg PO DAILY Qty: 90 1RF ondansetron HCl 4 mg tablet 4 mg PO DAILY 90 Days Qty: 90 1RF diltiazem HCl 240 mg capsule,extended release 24hr 240 mg PO DAILY Qty: 90 1RF atorvastatin 40 mg tablet 40 mg PO BEDTIME 90 Days Qty: 90 1RF (DME) OneTouch Ultra Test Strip See Rx Instructions .Route Qty: 100 1RF Rx Instructions: Use to check blood sugar daily (DME) blood sugar diagnostic Strip See Rx Instructions .Route Qty: 100 1RF Rx Instructions: test BS once a day trazodone 50 mg tablet 50 mg PO DAILY Qty: 90 1RF Fluzone HighDose Quad 20-21 PF 240 mcg/0.7 mL syringe IM Prevnar 13 (PF) 0.5 mL syringe 0.5 ml IM DIRECTED Citrucel 500 mg tablet 500 mg PO DAILY PRN aspirin 81 mg tablet,delayed release (DR/EC) 81 mg PO DAILY irbesartan 75 mg tablet 150 mg PO DAILY cholecalciferol (vitamin D3) 25 mcg (1,000 unit) capsule 25 mcg PO DAILY pantoprazole 20 mg tablet,delayed release (DR/EC) 20 mg PO DAILY Qty: 90 0RF magnesium 200 mg tablet 200 mg PO BID Interventions: Acute Care Transfer Worksheet (ED) Last Done: 04/24/23 20:40 Discharge Date/Time: 04/24/23 20:41
[2023-04-24 12:40] LABS: MANUAL DIFF FLAG NO
[2023-04-24 12:43] LABS: Basophils Percent Auto 0.2 % (0-2); Eosinophils Absolute Auto 0.1 X10*3/uL (0.0-0.4); Eosinophils Percent Auto 0.9 % (0-4); Hematocrit 34.8 % (42.0-52.0); Hemoglobin 10.9 g/dl (14.0-18.0); Lymphocytes Absolute Auto 0.8 X10*3/uL (1.2-4.9); Lymphocytes Percent Auto 8.2 % (20-40); Mean Corpuscular HGB Conc 31.3 g/dl (31.0-36.0); Mean Corpuscular Hemoglobin 27.7 pg (27.0-33.0); Mean Corpuscular Volume 88.5 fL (80.0-98.0); Mean Platelet Volume 9.5 fL (9.4-12.4); Monocytes Absolute Auto 0.8 X10*3/uL (0.1-1.2); Monocytes Percent Auto 8.6 % (2-11); Neutrophils Absolute Auto 7.9 x10*3/uL (2.0-8.3); Neutrophils Percent Auto 81.1 % (45-73); Platelet Count 459 X10*3/uL (160-400); Red Blood Count 3.93 X10*6/uL (4.60-5.80); White Blood Count 9.8 X10*3/uL (4.8-10.8)
[2023-04-24 12:48] LABS: INTERNATIONAL NORM RATIO 1.2 (0.9-1.1); Prothrombin Time 14.9 SEC (11.1-13.3)
[2023-04-24 12:51] LABS: Partial Thromboplastin Time 35.1 SEC (26.0-36.8)
[2023-04-24 12:55] LABS: Alanine Aminotransferase 12 U/L (0-40); Albumin Level 3.2 g/dL (3.5-5.0); Alkaline Phosphatase 81 U/L (39-117); Anion Gap 14 (12-20); Aspartate Amino Transferase 21 U/L (5-37); Bilirubin Total 0.5 mg/dL (0.0-1.0); Blood Urea Nitrogen 20 mg/dL (9-16); Calcium 9.4 mg/dL (8.4-10.2); Carbon Dioxide 23 mmol/L (22-29); Chloride 106 mmol/L (96-108); Creatinine Clr Calc Pharmacy 43.9; Estimated Glomerular Filt Rate 57; Glucose Random 144 mg/dL (60-115); Lipase 14 U/L (8-78); Sodium 139 mmol/L (135-145); Total Protein 6.6 g/dL (6.5-8.0)
[2023-04-24 13:02] LABS: Troponin-I High Sensitivity 6.6 ng/L (<3.5-35.0)
[2023-04-24 15:29] LABS: Amylase 23 U/L (28-100)
[2023-04-24] MEDS: iohexoL 350 MG/ML 100 ML INFUS..BTL IV (16:45)
[2023-04-24 18:27] VITALS: BP 173/77; PULSE 91; RESP 16; TEMP 36.4; O2SAT 96
--- NOTE | 2023-04-24 18:47 | PC.NURSE ---
Patient ambulated out of bed with steady gait to bathroom. Family member at bedside.
== END 2023-04-24 20:41 | disposition short-term general hospital (02) ==
PROVIDERS: Physician Assistant; Emergency Provider Emergency Medicine; PCP Nurse Practitioner Family
DX: I71.40 Abdominal aortic aneurysm, without rupture, unspecified (principal); I10 Essential (primary) hypertension; E11.9 Type 2 diabetes mellitus without complications; K21.9 Gastro-esophageal reflux disease without esophagitis
CPT/HCPCS: 36415; 74174; 80053; 82150; 83690; 84484; 85025; 85610; 85730; 93005; 99285; Q9967

== ENCOUNTER → 2023-04-24 11:32 | Outpatient (BNV) | payer MEDICARE, SELFPAY | PROVIDERS: Emergency Provider Emergency Medicine; PCP Nurse Practitioner Family; Visit Provider Internal Medicine Cardiovascular Disease | DX: I45.10 Unspecified right bundle-branch block (principal) | CPT/HCPCS: 93010 ==

== ENCOUNTER 2023-06-08 11:46 | Outpatient (REF) | payer MEDICARE, SELFPAY ==
[2023-06-08 13:30] LABS: MANUAL DIFF FLAG NO
[2023-06-08 13:48] LABS: Basophils Percent Auto 0.3 % (0-2); Eosinophils Absolute Auto 0.1 X10*3/uL (0.0-0.4); Eosinophils Percent Auto 1.8 % (0-4); Hematocrit 30.8 % (42.0-52.0); Hemoglobin 9.4 g/dl (14.0-18.0); Imm Gran Abs Auto 0.03 X10*3/uL (0.00-0.03); Imm Gran Pct Auto 0.4 % (0.0-0.4); Lymphocytes Percent Auto 12.5 % (20-40); Mean Corpuscular HGB Conc 30.5 g/dl (31.0-36.0); Mean Corpuscular Hemoglobin 27.6 pg (27.0-33.0); Mean Corpuscular Volume 90.3 fL (80.0-98.0); Mean Platelet Volume 11.2 fL (9.4-12.4); Monocytes Absolute Auto 0.4 X10*3/uL (0.1-1.2); Monocytes Percent Auto 5.8 % (2-11); Neutrophils Absolute Auto 6.1 x10*3/uL (2.0-8.3); Neutrophils Percent Auto 79.2 % (45-73); Platelet Count 264 X10*3/uL (160-400); Red Blood Count 3.41 X10*6/uL (4.60-5.80); Red Cell Distribution Width 18.4 % (11.0-16.0); White Blood Count 7.7 X10*3/uL (4.8-10.8)
[2023-06-08 14:11] LABS: Alanine Aminotransferase 8 U/L (0-40); Albumin Level 3.6 g/dL (3.5-5.0); Alkaline Phosphatase 39 U/L (39-117); Anion Gap 13 (12-20); Aspartate Amino Transferase 15 U/L (5-37); Bilirubin Direct 0.3 mg/dL (0.0-0.5); Bilirubin Total 0.6 mg/dL (0.0-1.0); Blood Urea Nitrogen 23 mg/dL (9-16); C Reactive Protein 15.47 mg/dL (< or = 0.50); Carbon Dioxide 23 mmol/L (22-29); Chloride 108 mmol/L (96-108); Estimated Glomerular Filt Rate 48; Potassium 4.2 mmol/L (3.3-5.1); Sodium 140 mmol/L (135-145); Total Protein 6.8 g/dL (6.5-8.0)
[2023-06-08 14:40] LABS: Erythrocyte Sedimentation Rate 30 MM/HR (0-15)
== END 2023-06-08 11:47 | disposition home or self-care (01) ==
LOC: HO.HMGCLDS 11:46
PROVIDERS: PCP Nurse Practitioner Family; Visit Provider Internal Medicine
DX: R10.13 Epigastric pain (principal); K57.10 Diverticulosis of small intestine without perforation or abscess without bleeding
CPT/HCPCS: 36415; 80051; 80076; 82565; 84520; 85025; 85652; 86140

== ENCOUNTER 2023-06-13 08:58 | Outpatient (REF) | payer MEDICARE, SELFPAY ==
--- NOTE | ~2023-06-13 | CT_ITS ---
EXAMINATION: CT ABDOMEN AND PELVIS WITHOUT CONTRAST CLINICAL INFORMATION: Epigastric pain and diverticulosis COMPARISON: CT angiogram abdomen 04/24/2023 TECHNIQUE: Multidetector volumetric imaging was performed from the superior aspect of the liver through the pubic symphysis. Sagittal and coronal reformatted images were obtained on the technologist's workstation. This CT examination was performed using dose optimization techniques as appropriate, variously including the following: *Automated exposure control *Adjustment of mA and/or kV according to patient size (this includes techniques or standardized protocols for targeted exams where dose is matched to indication/reason for exam; i.e. extremities or head) *Use of iterative reconstruction technique DLP: 396 mGy-cm FINDINGS: LUNG BASES: The visualized lung bases are unremarkable. LIVER, GALLBLADDER, AND BILIARY TREE: The liver is normal in size, shape, and attenuation. A small benign cyst is seen in the left lobe of the liver (3:10). No concerning solid focal hepatic lesion or biliary ductal dilatation is present. The gallbladder is unremarkable with no evidence of radiopaque gallstones, gallbladder wall thickening, or obvious pericholecystic inflammatory changes. PANCREAS: Unremarkable. SPLEEN: Unremarkable. ADRENAL GLANDS: Unremarkable. KIDNEYS AND URETERS: The kidneys are normal in size, shape, and attenuation. No hydronephrosis, hydroureter, or calculi seen. No perinephric stranding. Multiple bilateral benign Bosniak class I renal cysts are noted as seen previously which require no additional imaging or follow-up. No solid renal masses are seen. BLADDER: Unremarkable. GASTROINTESTINAL TRACT: A tiny hiatal hernia is seen. There is colonic diverticulosis without diverticulitis. The appendix is normal. Compared with the prior study, there's been significant improvement in the appearance of the small bowel with the multiple abscesses seen surrounding abnormal loops. At this time, some phlegmonous changes remain anteriorly with a few punctate areas of extraluminal air. There is one walled off well-defined area adjacent to a loop of small bowel measuring 3 x 2 x 2.7 cm which may represent a walled off abscess with communication with bowel lumen as this fills with contrast. No free intraperitoneal air is seen. ABDOMINAL WALL: Is a small periumbilical hernia seen containing only fat. LYMPH NODES: No retroperitoneal lymphadenopathy. VASCULAR: Marked calcific atherosclerotic changes are present in the aorta and iliofemoral vessels. There is no evidence of an abdominal aortic aneurysm. PELVIC VISCERA: The prostate and seminal vesicles are unremarkable. OSSEOUS STRUCTURES: Degenerative changes are present most marked at L4-L5. CT/CT abdomen pelvis wo IV con IMPRESSION: 1. Significant improvement in the appearance of the small bowel with previously seen multiple abscesses surrounding abnormal loops of small bowel. At this time, some phlegmonous changes remain anteriorly with a few punctate areas of extraluminal air. There is one walled off area adjacent to a loop of small bowel measuring 3 cm which may represent a walled off abscess with communication with bowel lumen as this fills with contrast. No free intraperitoneal air is seen. 2. Incidental note made of colonic diverticulosis without diverticulitis, benign hepatic and renal cysts which need no additional imaging or follow-up, small hiatal hernia and degenerative changes in the spine. Fleischner guidelines were followed.
[2023-06-13] MEDS: Barium Sulfate Oral (Berry) 450 ML ORAL.SUSP 900 ML PO (11:57)
== END 2023-06-13 08:59 | disposition home or self-care (01) ==
LOC: HO.CT 08:58
PROVIDERS: PCP Nurse Practitioner Family; Visit Provider Internal Medicine
DX: R10.13 Epigastric pain (principal); K57.10 Diverticulosis of small intestine without perforation or abscess without bleeding
CPT/HCPCS: 74176

== ENCOUNTER 2023-06-20 09:07 | Outpatient (AMB) | payer MEDICARE, SELFPAY ==
--- NOTE | 2023-06-20 09:20 | MHC.PC.OV ---
Vital Signs 06/20/23 09:29 Height 5 ft 5 in Weight 159 lb 4 oz BMI 26.5 BP 120/74 Blood Pressure Location Lt brachial Position Sitting Pulse 82 Pulse Source Pulse Oximeter Pulse Oximetry (%) 97 Oxygen Delivery Method Room Air Intake Visit Reasons: 4 month follow up Intake Note: Patient here for diabetes follow up. Allergies No Known Allergies [No Known Allergies*] Allergy (Verified 06/20/23 10:20) Medication List - Last Reconciled 06/20/23 by KLAUDIA Morales aspirin 81 mg PO DAILY atorvastatin 40 mg PO BEDTIME 90 days blood sugar diagnostic ([email or web address] Ultra Test strips) Use to check blood sugar daily blood sugar diagnostic test BS once a day cholecalciferol (vitamin D3) 25 mcg PO DAILY cyanocobalamin (vitamin B-12) 1000mcg/ml injection weekly for 4 weeks, then every 2 weeks for one month intramuscularly daily; 1 week diltiazem HCl CD 240 mg PO DAILY fenofibrate 160 mg PO DAILY 90 days flu vacc [id number](65yr up)-PF mL IM fluticasone propionate 50 mcg/actuation 1 spray intranasal DAILY irbesartan 150 mg PO DAILY magnesium 200 mg PO BID metformin ER 500 mg PO BID 90 days methylcellulose (laxative) (Citrucel) 500 mg PO DAILY PRN ondansetron HCl 4 mg PO DAILY 90 days pantoprazole 20 mg PO DAILY pioglitazone 30 mg PO DAILY pneumoc 13-rocky conj-dip cr(PF) 0.5 mL IM DIRECTED trazodone 50 mg PO DAILY Tobacco use date assessed: 02/16/23 Fall risk assessment: No Falls in past year Last assessed Fall Risk: 06/20/23 Dental Screening Dental Screen Date: 02/16/23 HPI 4 month follow up HPI Details Pt is a diabetic, on an ARB and a statin. A1C in office today is 5.8, though may be inaccurate due to anemia. Microalbumin is up to date. Denies polyuria, polydipsia, and neuropathy. Pt denies any signs and symptoms of hypoglycemia and does know how to correct it. Pt is anemic. He does report some weakness. Pt does not have dizziness upon standing. He is seeing GI today. I will continue to watch his H&H. [facility] Medical History (Reviewed 06/20/23 @ 10:21 by [facility] Superior mesenteric artery syndrome Elevated serum creatinine Encounter for annual wellness visit (AWV) in Medicare patient Screening PSA (prostate specific antigen) Plantar callus CKD (chronic kidney disease) stage 3, GFR 30-59 ml/min Acquired hammertoes of both feet Type 2 diabetes mellitus without complication, without long-term current use of insulin Eczema Hearing loss Prostate CA HTN (hypertension) PVD (peripheral vascular disease) Carotid artery stenosis COPD (chronic obstructive pulmonary disease) Dyslipidemia Surgical History (Reviewed 06/20/23 @ 10:21 by [facility]UN[facility]) History of left-sided carotid endarterectomy Status post aortography with runoff History of atherectomy History of angioplasty H/O colonoscopy with polypectomy History of endarterectomy History of cataract surgery History of cataract surgery Family History Father Medical history non-contributory Mother Medical history non-contributory Son No problems noted. Daughter No problems noted. Daughter No problems noted. Social History Housing: House Alcohol intake: current Patient Tobacco Use Status: Former Tobacco user Years Smoked: quit 25 years ago e-Cigarette/Vaping Use: Never Used Second Hand Smoke Exposure: No service: Yes Current occupational status: retired Cognitive needs: No Hearing needs: No Vision needs: No Questionnaire Thrive Questionnaire Date Thrive assessed: 02/16/23 ELISABET-7 AMB Questionnaire ELISABET-7 Date ELISABET - 7 assessed: 02/16/23 Source: Developed by Drs. Larry Ohara, Luci Anglin, Charlie Lees and colleagues, with an educational deanna from [employer]. Review of Systems Const Reports as per HPI Physical exam (Primary Care) Vital Signs: Last Vital Signs Pulse 82 06/20/23 09:29 BP 120/74 06/20/23 09:29 Pulse Ox 97 06/20/23 09:29 Oxygen Delivery Method Room Air 06/20/23 09:29 BMI result Body Mass Index 26.5 Tobacco/Smoking Status: Tobacco use Status Tobacco use date assessed 02/16/23 06/20/23 09:22 Patient Tobacco Use Status Former Tobacco user 06/20/23 09:22 e-Cigarette/Vaping Use Never Used 06/20/23 09:22 Thrive Assessment: Date of Thrive Assessment Date Thrive assessed 02/16/23 06/20/23 09:22 Const Other: pale complexion General: cooperative Orientation/consciousness: patient oriented x3 Resp Effort & Inspection: normal respiratory effort Auscultation: clear to auscultation bilaterally and diminished lung sounds Cardio Rate: regular rate Rhythm: regular rhythm Heart sounds: S1 normal heart sound present, S2 normal heart sound present and Murmur heart sound present systolic (faint) Neuro General: patient oriented x3 Extrem Other: bilat feet: + sensation with use of monofilament, feet intact Psych Appearance: grossly normal Mental Status: mental status grossly normal Speech and movement: Normal speech and movement present Affect: normal affect Attitude: cooperative Thought process: Normal thought process present Thought content: Normal thought content present Insight: Good insight present (Psych) Judgement: Good judgement present (Psych) Results AMB Hemoglobin A1c AMB Hemoglobin A1c 5.8 % Last Edit by TODD Saldana on 06/20/23 09:48 Results Reviewed Results Reviewed: Laboratory Last Values Hgb A1c (Clinic) 5.8 % (4.0-6.0) 06/20/23 09:46 Assessment and Plan Assessment & Plan (1) Anemia: Code(s): D64.9 - Anemia, unspecified Plan: Labs ordered to monitor (2) Diabetes: Code(s): E11.9 - Type 2 diabetes mellitus without complications Plan: A1C done in office, continue to monitor sugars at home Plan The patient agreed to the use of a medical records receptionist for this encounter. Scribed for KLAUDIA Jiang by isaac Branch scribe, on 06/20/2023 at 09:45 EST. Orders: Orders AMB Hemoglobin A1c Today E11.9 - Type 2 diabetes mellitus without complications Ferritin Today D64.9 - Anemia, unspecified IRON PROFILE Today D64.9 - Anemia, unspecified Coding Level of Care Code Est Pt Level 3 (76237) Diagnoses Anemia D64.9 Diabetes E11.9
[2023-06-20 09:29] VITALS: BP 120/74; PULSE 82; O2SAT 97; BMI 26.5
== END 2023-06-20 11:05 | disposition home or self-care (01) ==
PROVIDERS: PCP Nurse Practitioner Family; Visit Provider Nurse Practitioner Family
DX: D64.9 Anemia, unspecified (principal); E11.9 Type 2 diabetes mellitus without complications
CPT/HCPCS: 83036; 99213

== ENCOUNTER 2023-06-28 06:09 | Outpatient (REF) | payer MEDICARE, SELFPAY ==
[2023-06-28 10:22] LABS: MANUAL DIFF FLAG NO
[2023-06-28 10:28] LABS: Appearance Urine Clear; Color Urine Yellow; Glucose Urine UA Negative (Negative); Leukocyte Esterase Urine Negative (Negative); Nitrite Urine Negative (Negative); PH 5.5 (5.0-9.0); Specific Gravity - Urine 1.015 (1.005-1.025); Urine Blood Negative (Negative); Urine Ketones Negative (Negative); Urine Protein Negative (Neg-Trace)
[2023-06-28 10:36] LABS: Basophils Percent Auto 0.6 % (0-2); Eosinophils Absolute Auto 0.3 X10*3/uL (0.0-0.4); Eosinophils Percent Auto 6.2 % (0-4); Hemoglobin 10.3 g/dl (14.0-18.0); Imm Gran Abs Auto 0.01 X10*3/uL (0.00-0.03); Imm Gran Pct Auto 0.2 % (0.0-0.4); Lymphocytes Absolute Auto 1.3 X10*3/uL (1.2-4.9); Lymphocytes Percent Auto 27.3 % (20-40); Mean Corpuscular HGB Conc 30.3 g/dl (31.0-36.0); Mean Corpuscular Hemoglobin 27.9 pg (27.0-33.0); Mean Corpuscular Volume 92.1 fL (80.0-98.0); Mean Platelet Volume 11.4 fL (9.4-12.4); Monocytes Absolute Auto 0.4 X10*3/uL (0.1-1.2); Monocytes Percent Auto 7.8 % (2-11); Neutrophils Absolute Auto 2.8 x10*3/uL (2.0-8.3); Neutrophils Percent Auto 57.9 % (45-73); Platelet Count 237 X10*3/uL (160-400); Red Blood Count 3.69 X10*6/uL (4.60-5.80); Red Cell Distribution Width 18.2 % (11.0-16.0); White Blood Count 4.9 X10*3/uL (4.8-10.8)
[2023-06-28 10:52] LABS: Alanine Aminotransferase 7 U/L (0-40); Albumin Level 3.7 g/dL (3.5-5.0); Alkaline Phosphatase 36 U/L (39-117); Anion Gap 14 (12-20); Aspartate Amino Transferase 16 U/L (5-37); Bilirubin Total 0.3 mg/dL (0.0-1.0); Blood Urea Nitrogen 29 mg/dL (9-16); Calcium 9.6 mg/dL (8.4-10.2); Carbon Dioxide 22 mmol/L (22-29); Chloride 112 mmol/L (96-108); Cholesterol 116 mg/dL (<200); Estimated Glomerular Filt Rate 51; Glucose Fasting 138 mg/dL (60-99); HDL Cholesterol 32 mg/dL (>40); Iron 47 mcg/dL (45-160); LDL Cholesterol Calculated 58 mg/dL (<100); Percent Iron Saturation 14 % (15-50); Potassium 4.6 mmol/L (3.3-5.1); Sodium 143 mmol/L (135-145); Total Iron Binding Capacity 326 mcg/dL (228-428); Total Protein 6.5 g/dL (6.5-8.0); Triglycerides 130 mg/dL (<150); Unsaturated Iron Binding 279 ug/dL
[2023-06-28 11:15] LABS: Ferritin 110 ng/mL (20-250); TSH reflex Free T4 3.38 uIU/mL (0.32-4.0)
[2023-06-28 11:34] LABS: Folate 7.4 ng/mL (> or = 4.0); Vitamin B12 < 148 pg/mL (200-900)
== END 2023-06-28 06:10 | disposition home or self-care (01) ==
LOC: HO.HMGCLDS 06:09
PROVIDERS: PCP Nurse Practitioner Family; Referring Provider Internal Medicine; Visit Provider Nurse Practitioner Family
DX: E11.9 Type 2 diabetes mellitus without complications (principal); D64.9 Anemia, unspecified; E53.8 Deficiency of other specified B group vitamins; K57.12 Diverticulitis of small intestine without perforation or abscess without bleeding
CPT/HCPCS: 36415; 80053; 80061; 81003; 82607; 82728; 82746; 83540; 84443; 85025

== ENCOUNTER 2023-07-06 08:16 | Outpatient (AMB) | payer MEDICARE, SELFPAY ==
--- NOTE | 2023-07-06 08:52 | AM.OFFVISNUR ---
Intake Intake Visit Reasons: B-12 #1 Intake Note: Pt arrived for week 1 of 4 weekly B-12 injections Allergies No Known Allergies [No Known Allergies*] Allergy (Verified 06/20/23 10:20) Office Meds cyanocobalamin (vitamin B-12) 1,000 mcg/mL injection solution Performing Provider: KLAUDIA Morales Performing Location: [facility] Administered by: Cici Van RN on 07/06/23 08:53 Dose Route Admin Location Dispensed Lot Number Expiration Date NDC Kst Operator 1,000 mcg IM left deltoid 1 mL [id number] 11/13/24 1569-1677-57 [facility] Comments: Pt supplied Coding Assessment & Plan Assessment & Plan Orders: Orders AMB Vitamin B12 Injection Patient Supplied Today E53.8 - Deficiency of other specified B group vitamins Medications: New cyanocobalamin (vitamin B-12) 1,000 mcg IM ONCE 1 mL 0RF E53.8 - Deficiency of other specified B group vitamins
== END 2023-07-06 09:37 | disposition home or self-care (01) ==
LOC: HO.HMGC 08:16
PROVIDERS: PCP Nurse Practitioner Family; Visit Provider Nurse Practitioner Family
DX: E53.8 Deficiency of other specified B group vitamins (principal)
CPT/HCPCS: 96372; J3420

== ENCOUNTER 2023-07-13 08:26 | Outpatient (AMB) | payer MEDICARE, SELFPAY ==
--- NOTE | 2023-07-13 08:33 | AM.OFFVISNUR ---
Intake Intake Visit Reasons: B-12 #2 Intake Note: Pt arrived for weekly B-12 injection, #2 of 4 weekly Allergies No Known Allergies [No Known Allergies*] Allergy (Verified 06/20/23 10:20) Office Meds cyanocobalamin (vitamin B-12) 1,000 mcg/mL injection solution Performing Provider: KLAUDIA Morales Performing Location: [facility] Primary [facility] Administered by: Cici Van RN on 07/13/23 08:34 Dose Route Admin Location Dispensed Lot Number Expiration Date ND Travel Agency Manager 1,000 mcg IM left deltoid 1 mL [id number] 11/13/24 9329-6824-45 [facility] Comments: Pt supplied Coding Assessment & Plan Assessment & Plan Orders: Orders AMB Vitamin B12 Injection Patient Supplied Today E53.8 - Deficiency of other specified B group vitamins Medications: New cyanocobalamin (vitamin B-12) 1,000 mcg IM ONCE 1 mL 0RF E53.8 - Deficiency of other specified B group vitamins
== END 2023-07-13 09:02 | disposition home or self-care (01) ==
LOC: HO.HMGC 08:26
PROVIDERS: PCP Nurse Practitioner Family; Visit Provider Nurse Practitioner Family
DX: E53.8 Deficiency of other specified B group vitamins (principal)
CPT/HCPCS: 96372; J3420

== ENCOUNTER 2023-07-20 08:31 | Outpatient (AMB) | payer MEDICARE, SELFPAY ==
--- NOTE | 2023-07-20 08:38 | AM.OFFVISNUR ---
Intake Intake Visit Reasons: B-12 #3 Intake Note: Pt arrived for weekly B-12 #3 of 4 weekly Allergies No Known Allergies [No Known Allergies*] Allergy (Verified 06/20/23 10:20) Office Meds cyanocobalamin (vitamin B-12) 1,000 mcg/mL injection solution Performing Provider: KLAUDIA Morales Performing Location: [facility] Primary [facility] Administered by: Cici Van RN on 07/20/23 08:39 Dose Route Admin Location Dispensed Lot Number Expiration Date NDC Attendance Officer 1,000 mcg IM left deltoid 1 mL [id number] 11/13/24 4523-7140-05 [facility] Comments: Pt supplied Coding Assessment & Plan Assessment & Plan Orders: Orders AMB Vitamin B12 Injection Patient Supplied Today E53.8 - Deficiency of other specified B group vitamins Medications: New cyanocobalamin (vitamin B-12) 1,000 mcg IM ONCE 1 mL 0RF E53.8 - Deficiency of other specified B group vitamins
== END 2023-07-20 08:40 | disposition home or self-care (01) ==
LOC: HO.HMGC 08:31
PROVIDERS: PCP Nurse Practitioner Family; Visit Provider Nurse Practitioner Family
DX: E53.8 Deficiency of other specified B group vitamins (principal)
CPT/HCPCS: 96372; J3420

== ENCOUNTER 2023-07-20 08:38 | Outpatient (REF) | payer MEDICARE, SELFPAY ==
[2023-07-20 10:31] LABS: MANUAL DIFF FLAG NO
[2023-07-20 10:38] LABS: Basophils Percent Auto 0.4 % (0-2); Eosinophils Absolute Auto 0.2 X10*3/uL (0.0-0.4); Eosinophils Percent Auto 3.3 % (0-4); Hematocrit 36.7 % (42.0-52.0); Hemoglobin 11.2 g/dl (14.0-18.0); Imm Gran Abs Auto 0.01 X10*3/uL (0.00-0.03); Imm Gran Pct Auto 0.2 % (0.0-0.4); Lymphocytes Absolute Auto 1.2 X10*3/uL (1.2-4.9); Lymphocytes Percent Auto 26.5 % (20-40); Mean Corpuscular HGB Conc 30.5 g/dl (31.0-36.0); Mean Corpuscular Hemoglobin 28.2 pg (27.0-33.0); Mean Corpuscular Volume 92.4 fL (80.0-98.0); Monocytes Absolute Auto 0.4 X10*3/uL (0.1-1.2); Monocytes Percent Auto 7.8 % (2-11); Neutrophils Absolute Auto 2.8 x10*3/uL (2.0-8.3); Neutrophils Percent Auto 61.8 % (45-73); Platelet Count 230 X10*3/uL (160-400); Red Blood Count 3.97 X10*6/uL (4.60-5.80); Red Cell Distribution Width 16.9 % (11.0-16.0); White Blood Count 4.6 X10*3/uL (4.8-10.8)
[2023-07-20 11:06] LABS: Parathyroid Hormone Intact 19.6 pg/mL (8.7-77.1)
[2023-07-20 11:07] LABS: Alanine Aminotransferase 11 U/L (0-40); Albumin Level 3.9 g/dL (3.5-5.0); Alkaline Phosphatase 31 U/L (39-117); Anion Gap 11 (12-20); Aspartate Amino Transferase 25 U/L (5-37); Bilirubin Total 0.4 mg/dL (0.0-1.0); Blood Urea Nitrogen 31 mg/dL (9-16); Carbon Dioxide 26 mmol/L (22-29); Chloride 110 mmol/L (96-108); Estimated Glomerular Filt Rate 49; Glucose Random 154 mg/dL (60-115); Magnesium 1.5 mg/dL (1.6-2.6); Potassium 5.1 mmol/L (3.3-5.1); Sodium 142 mmol/L (135-145); Total Protein 6.6 g/dL (6.5-8.0); Vitamin D 25-OH Total 51.3 ng/mL (>30)
[2023-07-20 11:18] LABS: Creatinine Urine 122.04 mg/dL; Total Protein Urine Random 12 mg/dL (<12)
== END 2023-07-20 08:39 | disposition home or self-care (01) ==
LOC: HO.HMGCLDS 08:38
PROVIDERS: PCP Nurse Practitioner Family; Visit Provider Internal Medicine Nephrology
DX: I12.9 Hypertensive chronic kidney disease with stage 1 through stage 4 chronic kidney disease, or unspecified chronic kidney disease (principal); E11.22 Type 2 diabetes mellitus with diabetic chronic kidney disease; N18.32 Chronic kidney disease, stage 3b; E83.42 Hypomagnesemia
CPT/HCPCS: 36415; 80053; 82306; 82570; 83735; 83970; 84100; 84156; 84550; 85025

== ENCOUNTER 2023-07-27 09:02 | Outpatient (AMB) | payer MEDICARE, SELFPAY ==
--- NOTE | 2023-07-27 09:09 | AM.OFFVISNUR ---
Intake Intake Visit Reasons: B-12 #4 Intake Note: Pt arrived for B-12 injection, #4 of 4 weekly injections. Pt will return in 2 weeks. Allergies No Known Allergies [No Known Allergies*] Allergy (Verified 06/20/23 10:20) Office Meds cyanocobalamin (vitamin B-12) 1,000 mcg/mL injection solution Performing Provider: KLAUDIA Morales Performing Location: [facility] Administered by: Cici Van RN on 07/27/23 09:10 Dose Route Admin Location Dispensed Lot Number Expiration Date NDC Optical Effects Line Up Person 1,000 mcg IM right deltoid 1 mL [id number] 11/13/24 3641-1006-[address] [facility] Comments: Pt supplied Coding Assessment & Plan Assessment & Plan Orders: Orders AMB Vitamin B12 Injection Patient Supplied Today E53.8 - Deficiency of other specified B group vitamins Medications: New cyanocobalamin (vitamin B-12) 1,000 mcg IM ONCE 1 mL 0RF E53.8 - Deficiency of other specified B group vitamins
== END 2023-07-27 09:42 | disposition home or self-care (01) ==
LOC: HO.HMGC 09:02
PROVIDERS: PCP Nurse Practitioner Family; Visit Provider Nurse Practitioner Family
DX: E53.8 Deficiency of other specified B group vitamins (principal)
CPT/HCPCS: 96372; J3420

== ENCOUNTER 2023-08-04 11:46 | Outpatient (REF) | payer MEDICARE, SELFPAY ==
--- NOTE | ~2023-08-04 | CT_ITS ---
EXAMINATION: CT ABDOMEN AND PELVIS WITH CONTRAST CLINICAL INFORMATION: Diverticulitis with perforation and abscess COMPARISON: 06/13/2023 TECHNIQUE: Multidetector volumetric images were obtained from the superior aspect of the liver through the pubic symphysis following administration 85 mL of Omnipaque 350 intravenous contrast. Sagittal and coronal reformatted images were obtained on the technologist's workstation. Oral contrast: No This CT examination was performed using dose optimization techniques as appropriate, variously including the following: *Automated exposure control *Adjustment of mA and/or kV according to patient size (this includes techniques or standardized protocols for targeted exams where dose is matched to indication/reason for exam; i.e. extremities or head) *Use of iterative reconstruction technique DLP: 333 mGy-cm FINDINGS: LUNG BASES: The visualized lung bases are unremarkable. LIVER, GALLBLADDER, AND BILIARY TREE: Several small subcentimeters areas of low density may well represent cystic. To small to adequately characterize The gallbladder is unremarkable with no evidence of radiopaque gallstones, gallbladder wall thickening, or obvious pericholecystic inflammatory changes. PANCREAS: Unremarkable. SPLEEN: Unremarkable. ADRENAL GLANDS: Once again nodular left adrenal gland. Nodular versus full right adrenal once again seen KIDNEYS AND URETERS: Cystic change is seen here. No suggestion for a solid lesion. No hydronephrosis BLADDER: Mildly irregular bladder wall GASTROINTESTINAL TRACT: There is abnormal soft tissue density/collection on image 41 midabdomen the left of midline. This areas measuring 3.4 x 2.2 x 2.7 cm. this there is a small air bubble associated with this. Therefore infectious etiology needs to be considered.. Other small air densities are seen but these could reside within bowel in the region. Differential would include a bowel diverticulum or possible other small local infectious etiologies in the vicinity. As stated I feel this is involving the small bowel. This is difficult to compare to previous exam due to normal bowel movement between exams. The same area as previously with some soft tissue stranding but again impossible to say if this is involving seen region. There is diverticular disease but no evidence for diverticulitis Hyperdensities area within the stomach could be an ingested product. This is not causing obstruction. A believe was present on previous exams. ABDOMINAL WALL: No significant hernia is appreciated. LYMPH NODES: There is no bulky adenopathy here. VASCULAR: Atherosclerotic changes are noted PELVIC VISCERA: Unremarkable. OSSEOUS STRUCTURES: Once again sclerotic changes in the femoral heads may be consistent with avascular necrosis CT/CT abdomen pelvis w IV con IMPRESSION: When compared to most recent previous exam there is some increasing change in the region of the previous abnormality within the mesentery associated with small bowel. Midabdomen and to the left of midline. As stated is difficult to say if this is the exact same area due to the mobility of small bowel but the generalized area is similar. There is a collection here with an air bubble in some small other air densities around as described. Suspicious for abscess Other findings are as described. Cannot rule out foreign body stomach in the antrum. Fleischner guidelines were followed.
[2023-08-04] MEDS: iohexoL 350 MG/ML 100 ML INFUS..BTL 85 ML IV (14:21)
== END 2023-08-04 11:47 | disposition home or self-care (01) ==
LOC: HO.CT 11:46
PROVIDERS: PCP Nurse Practitioner Family; Visit Provider Internal Medicine
DX: K57.00 Diverticulitis of small intestine with perforation and abscess without bleeding (principal)
CPT/HCPCS: 74177; Q9967

== ENCOUNTER 2023-08-10 08:58 | Outpatient (AMB) | payer MEDICARE, SELFPAY ==
--- NOTE | 2023-08-10 09:07 | AM.OFFVISNUR ---
Intake Intake Visit Reasons: B12 Intake Note: Pt arrived for Q 2 week B-12 injection Allergies No Known Allergies [No Known Allergies*] Allergy (Verified 06/20/23 10:20) Office Meds cyanocobalamin (vitamin B-12) 1,000 mcg/mL injection solution Performing Provider: KLAUDIA Morales Performing Location: [facility] Administered by: Cici Van RN on 08/10/23 09:07 Dose Route Admin Location Dispensed Lot Number Expiration Date ND Geophysics Professor 1,000 mcg IM left deltoid 1 mL [id number] 12/14/24 4129-2116-94 [facility] Comments: Pt supplied Coding Assessment & Plan Assessment & Plan Orders: Orders AMB Vitamin B12 Injection Patient Supplied Today E53.8 - Deficiency of other specified B group vitamins Medications: New cyanocobalamin (vitamin B-12) 1,000 mcg IM ONCE 1 mL 0RF E53.8 - Deficiency of other specified B group vitamins
== END 2023-08-10 11:28 | disposition home or self-care (01) ==
LOC: HO.HMGC 08:58
PROVIDERS: PCP Nurse Practitioner Family; Visit Provider Nurse Practitioner Family
DX: E53.8 Deficiency of other specified B group vitamins (principal)
CPT/HCPCS: 96372; J3420

== ENCOUNTER 2023-08-11 15:03 | Outpatient (REF) | payer MEDICARE, SELFPAY ==
[2023-08-11 16:08] LABS: MANUAL DIFF FLAG NO
[2023-08-11 16:12] LABS: Basophils Percent Auto 0.6 % (0-2); Eosinophils Absolute Auto 0.1 X10*3/uL (0.0-0.4); Eosinophils Percent Auto 2.3 % (0-4); Hematocrit 36.7 % (42.0-52.0); Hemoglobin 11.3 g/dl (14.0-18.0); Imm Gran Abs Auto 0.02 X10*3/uL (0.00-0.03); Imm Gran Pct Auto 0.4 % (0.0-0.4); Lymphocytes Absolute Auto 1.4 X10*3/uL (1.2-4.9); Lymphocytes Percent Auto 26.1 % (20-40); Mean Corpuscular HGB Conc 30.8 g/dl (31.0-36.0); Mean Corpuscular Volume 91.1 fL (80.0-98.0); Monocytes Absolute Auto 0.4 X10*3/uL (0.1-1.2); Monocytes Percent Auto 7.1 % (2-11); Neutrophils Absolute Auto 3.3 x10*3/uL (2.0-8.3); Neutrophils Percent Auto 63.5 % (45-73); Platelet Count 303 X10*3/uL (160-400); Red Blood Count 4.03 X10*6/uL (4.60-5.80); Red Cell Distribution Width 15.4 % (11.0-16.0); White Blood Count 5.2 X10*3/uL (4.8-10.8)
[2023-08-11 16:53] LABS: Alanine Aminotransferase 13 U/L (0-40); Albumin Level 3.9 g/dL (3.5-5.0); Alkaline Phosphatase 37 U/L (39-117); Aspartate Amino Transferase 24 U/L (5-37); Bilirubin Direct 0.1 mg/dL (0.0-0.5); Bilirubin Total 0.3 mg/dL (0.0-1.0); C Reactive Protein < 0.10 mg/dL (< or = 0.50); Iron 56 mcg/dL (45-160); Percent Iron Saturation 16 % (15-50); Total Iron Binding Capacity 351 mcg/dL (228-428); Total Protein 6.8 g/dL (6.5-8.0); Unsaturated Iron Binding 295 ug/dL
[2023-08-11 17:08] LABS: Erythrocyte Sedimentation Rate 4 MM/HR (0-15); Prostate Specific Antigen 0.83 ng/mL (<0.05-4.0)
[2023-08-11 17:09] LABS: Ferritin 56 ng/mL (20-250)
[2023-08-11 17:23] LABS: Folate 8.1 ng/mL (> or = 4.0); Vitamin B12 > 2000 pg/mL (200-900)
== END 2023-08-11 15:04 | disposition home or self-care (01) ==
LOC: HO.HMGCLDS 15:03
PROVIDERS: Urology; PCP Nurse Practitioner Family; Visit Provider Internal Medicine
DX: C61 Malignant neoplasm of prostate (principal); K57.00 Diverticulitis of small intestine with perforation and abscess without bleeding; D64.9 Anemia, unspecified; Z12.5 Encounter for screening for malignant neoplasm of prostate
CPT/HCPCS: 36415; 80076; 82607; 82728; 82746; 83540; 84153; 85025; 85652; 86140

== ENCOUNTER 2023-08-24 08:43 | Outpatient (AMB) | payer MEDICARE, SELFPAY ==
--- NOTE | 2023-08-24 08:57 | AM.OFFVISNUR ---
Intake Visit Reasons: B12 Intake Note: Pt arrived for Q 2 week B-12 injection Allergies No Known Allergies [No Known Allergies*] Allergy (Verified 06/20/23 10:20) Office Meds cyanocobalamin (vitamin B-12) 1,000 mcg/mL injection solution Performing Provider: KLAUDIA Morales Performing Location: [facility] Administered by: Cici Van RN on 08/24/23 08:57 Dose Route Admin Location Dispensed Lot Number Expiration Date ND Flight Radio Officer 1,000 mcg IM left deltoid 1 mL [id number] 12/14/24 9656-8163-39 [facility] Comments: Pt supplied Assessment & Plan Assessment & Plan Orders: Orders AMB Vitamin B12 Injection Patient Supplied Today E53.8 - Deficiency of other specified B group vitamins Medications: New cyanocobalamin (vitamin B-12) 1,000 mcg IM ONCE 1 mL 0RF E53.8 - Deficiency of other specified B group vitamins
== END 2023-08-24 09:13 | disposition home or self-care (01) ==
PROVIDERS: PCP Nurse Practitioner Family; Visit Provider Nurse Practitioner Family
DX: E53.8 Deficiency of other specified B group vitamins (principal)
CPT/HCPCS: 96372; J3420

== ENCOUNTER 2023-08-31 11:42 | Outpatient (REF) | payer MEDICARE, SELFPAY ==
[2023-08-31 13:05] LABS: MANUAL DIFF FLAG NO
[2023-08-31 13:12] LABS: Basophils Percent Auto 0.6 % (0-2); Eosinophils Absolute Auto 0.1 X10*3/uL (0.0-0.4); Eosinophils Percent Auto 2.2 % (0-4); Hematocrit 37.2 % (42.0-52.0); Hemoglobin 11.6 g/dl (14.0-18.0); Imm Gran Abs Auto 0.02 X10*3/uL (0.00-0.03); Imm Gran Pct Auto 0.4 % (0.0-0.4); Lymphocytes Absolute Auto 1.3 X10*3/uL (1.2-4.9); Lymphocytes Percent Auto 23.6 % (20-40); Mean Corpuscular HGB Conc 31.2 g/dl (31.0-36.0); Mean Corpuscular Hemoglobin 28.5 pg (27.0-33.0); Mean Corpuscular Volume 91.4 fL (80.0-98.0); Mean Platelet Volume 10.7 fL (9.4-12.4); Monocytes Absolute Auto 0.4 X10*3/uL (0.1-1.2); Monocytes Percent Auto 7.4 % (2-11); Neutrophils Absolute Auto 3.6 x10*3/uL (2.0-8.3); Neutrophils Percent Auto 65.8 % (45-73); Platelet Count 201 X10*3/uL (160-400); Red Blood Count 4.07 X10*6/uL (4.60-5.80); Red Cell Distribution Width 15.5 % (11.0-16.0); White Blood Count 5.4 X10*3/uL (4.8-10.8)
[2023-08-31 13:39] LABS: Alanine Aminotransferase 11 U/L (0-40); Albumin Level 3.8 g/dL (3.5-5.0); Alkaline Phosphatase 44 U/L (39-117); Anion Gap 14 (12-20); Aspartate Amino Transferase 20 U/L (5-37); Bilirubin Total 0.4 mg/dL (0.0-1.0); Blood Urea Nitrogen 24 mg/dL (9-16); Calcium 9.6 mg/dL (8.4-10.2); Carbon Dioxide 24 mmol/L (22-29); Chloride 111 mmol/L (96-108); Estimated Glomerular Filt Rate 48; Glucose Random 144 mg/dL (60-115); Iron 78 mcg/dL (45-160); Percent Iron Saturation 23 % (15-50); Potassium 4.7 mmol/L (3.3-5.1); Sodium 144 mmol/L (135-145); Total Iron Binding Capacity 338 mcg/dL (228-428); Total Protein 6.4 g/dL (6.5-8.0); Unsaturated Iron Binding 260 ug/dL
[2023-08-31 13:59] LABS: Ferritin 41 ng/mL (20-250)
[2023-08-31 14:04] LABS: Folate 8.4 ng/mL (> or = 4.0); Vitamin B12 554 pg/mL (200-900)
== END 2023-08-31 11:43 | disposition home or self-care (01) ==
LOC: HO.HMGCLDS 11:42
PROVIDERS: PCP Nurse Practitioner Family; Visit Provider Nurse Practitioner Family
DX: E53.8 Deficiency of other specified B group vitamins (principal); D64.9 Anemia, unspecified
CPT/HCPCS: 36415; 80053; 82607; 82728; 82746; 83540; 85025

== ENCOUNTER 2023-09-07 08:26 | Outpatient (AMB) | payer MEDICARE, SELFPAY ==
--- NOTE | 2023-09-07 08:54 | AM.OFFVISNUR ---
Intake Visit Reasons: B-12 Intake Note: Pt arrived for B-12 injection Allergies No Known Allergies [No Known Allergies*] Allergy (Verified 06/20/23 10:20) Office Meds cyanocobalamin (vitamin B-12) 1,000 mcg/mL injection solution Performing Provider: KLAUDIA Morales Performing Location: [facility] Administered by: Cici Van RN on 09/07/23 08:55 Dose Route Admin Location Dispensed Lot Number Expiration Date NDC Manager [facility] 1,000 mcg IM left deltoid 1 mL [id number] 12/14/24 4706-9901-64 [facility] Comments: pt supplied Assessment & Plan Assessment & Plan Orders: Orders AMB Vitamin B12 Injection Patient Supplied Today E53.8 - Deficiency of other specified B group vitamins Medications: New cyanocobalamin (vitamin B-12) 1,000 mcg IM ONCE 1 mL 0RF E53.8 - Deficiency of other specified B group vitamins
== END 2023-09-07 08:54 | disposition home or self-care (01) ==
PROVIDERS: PCP Nurse Practitioner Family; Visit Provider Nurse Practitioner Family
DX: E53.8 Deficiency of other specified B group vitamins (principal)
CPT/HCPCS: 96372; J3420

== ENCOUNTER 2023-10-05 08:32 | Outpatient (AMB) | payer MEDICARE, SELFPAY ==
--- NOTE | 2023-10-05 08:33 | A.OFFVIS_ITS ---
Intake Visit Reasons: 6M Follow Up-PSA(set) Intake Note: Patient presents today for tele visit follow up on: PSA/Prostate Cancer Follow Up PSA: 0.83 Urology Med: None Antibiotic Allergy: None Blood Thinner: Aspirin Still Operator Gin Required: No Allergies No Known Allergies [No Known Allergies*] Allergy (Verified 10/05/23 08:40) HPI Comments Details: Larry is a pleasant male. He seen for the following urologic conditions - prostate cancer Telemedicine Evaluation 15 min Consultation Doximity Luke Video attempted PSA dropped back to 0.8 Will continue yearly review Prostate cancer Prior therapy with external beam radiation in 2004 PSA - 10/04 0.9, 04/07 0.7, 04/08 1.3, 10/06 0.8 Associated comorbidities diabetes Recently found to have elevated BUN Imaging shows no abnormality of urinary tract PFSH Medical History Superior mesenteric artery syndrome Elevated serum creatinine Encounter for annual wellness visit (AWV) in Medicare patient Screening PSA (prostate specific antigen) Plantar callus CKD (chronic kidney disease) stage 3, GFR 30-59 ml/min Acquired hammertoes of both feet Type 2 diabetes mellitus without complication, without long-term current use of insulin Eczema Hearing loss Prostate CA HTN (hypertension) PVD (peripheral vascular disease) Carotid artery stenosis COPD (chronic obstructive pulmonary disease) Dyslipidemia Surgical History History of left-sided carotid endarterectomy Status post aortography with runoff History of atherectomy History of angioplasty H/O colonoscopy with polypectomy History of endarterectomy History of cataract surgery History of cataract surgery Family History Father Medical history non-contributory Mother Medical history non-contributory Son No problems noted. Daughter No problems noted. Daughter No problems noted. Social History Housing: House Alcohol intake: current Patient Tobacco Use Status: Former Tobacco user Years Smoked: quit 25 years ago e-Cigarette/Vaping Use: Never Used Second Hand Smoke Exposure: No service: Yes Current occupational status: retired Cognitive needs: No Hearing needs: No Vision needs: No Review of Systems Const All systems reviewed & are unremarkable except as noted in HPI and below Reports no additional complaints Resp Reports no additional complaints GI Reports no additional complaints Reports as per HPI Musc Reports no additional complaints Physical Exam Telemedicine evaluation Appropriate responses Regular breathing rate and rhythm HEENT Head: Yes normal to inspection Ears: hearing grossly normal bilaterally Eyes General: appearance normal, both eyes and all related structures Neck Neck: Yes normal visual inspection Chest Chest palpation & inspection: normal inspection of the chest Resp Effort & Inspection: normal respiratory effort and able to speak in complete sentences Telehealth Telehealth Telehealth Platform: [place] Location of provider rendering services: practice address Location of patient: address on file Patient Identification confirmed using: Name, : Yes Telehealth method: video Patient verbally consented to treatment: Yes Patient verbally consented to billing insurance company: Yes Patient informed of any privacy concerns related to visit: Yes Minutes spent on Phone/Video with Pt.: 15 Assessment & Plan Assessment & Plan (1) Prostate CA: Comment: EXBRT 2004 Code(s): C61 - Malignant neoplasm of prostate Category: Medical Plan 1 year follow-up PSA office Orders: Orders Prostate Specific Antigen 364 Days C61 - Malignant neoplasm of prostate Patient Instructions: Imaging studies, laboratory and physical exam results were discussed and reviewed in detail. No major barriers to patient understanding were identified. An opportunity to ask questions regarding the treatment plan was provided. All questions were answered. The patient expressed understanding and agreement with the above treatment plan. The patient is aware they should contact our office by phone for worsening of their current condition or the appearance of new urologic symptoms. Compliance is encouraged with any medications and followup testing that is ordered. It is a privilege to participate in the urologic care of your patient. If you have any questions or concerns regarding treatment for the above conditions, or other urologic issues, please do not hesitate to contact me. The office telephone contact is [phone]. This note is constructed using voice recognition software. While every effort has been made to ensure accuracy consulting intern errors may have been included. Yours sincerely, Dr Hiren Reyes MD, [facility] - Urology Providers of Expert, Compassionate Care for the Genitourinary System Coding Level of Care Code Tele Est Pt Level 3 (37327) Complex EM visit Add On G2211 Diagnoses Prostate CA C61
== END 2023-10-05 09:10 | disposition home or self-care (01) ==
LOC: HO.HUSH 08:32
PROVIDERS: PCP Nurse Practitioner Family; Visit Provider Urology
DX: C61 Malignant neoplasm of prostate (principal)
CPT/HCPCS: 99213; G2211

== ENCOUNTER → 2023-10-05 08:32 | Outpatient (BNVA) | payer MEDICARE, SELFPAY | PROVIDERS: PCP Nurse Practitioner Family; Visit Provider Urology ==

== ENCOUNTER 2023-10-06 08:22 | Outpatient (AMB) | payer MEDICARE, SELFPAY ==
--- NOTE | 2023-10-06 08:34 | AM.OFFVISNUR ---
Intake Visit Reasons: B-12 R/S from 10/05/23 Intake Note: Pt arrived for monthly B-12 injection Allergies No Known Allergies [No Known Allergies*] Allergy (Verified 10/05/23 08:40) Office Meds cyanocobalamin (vitamin B-12) 1,000 mcg/mL injection solution Performing Provider: KLUADIA Morales Performing Location: [facility] Administered by: Cici Van RN on 10/06/23 08:35 Dose Route Admin Location Dispensed Lot Number Expiration Date ND Cattle Dipper 1,000 mcg IM left deltoid 1 mL [id number] 12/14/24 7080-3405-52 [facility] Comments: Pt supplied Assessment & Plan Assessment & Plan Orders: Orders AMB Vitamin B12 Injection Patient Supplied Today E53.8 - Deficiency of other specified B group vitamins Medications: New cyanocobalamin (vitamin B-12) 1,000 mcg IM ONCE 1 mL 0RF E53.8 - Deficiency of other specified B group vitamins
== END 2023-10-06 09:03 | disposition home or self-care (01) ==
PROVIDERS: PCP Nurse Practitioner Family
DX: E53.8 Deficiency of other specified B group vitamins (principal)
CPT/HCPCS: 96372; J3420

== ENCOUNTER 2023-10-18 08:54 | Outpatient (AMB) | payer MEDICARE, SELFPAY ==
--- NOTE | 2023-10-18 08:56 | A.OFFVIS_ITS ---
Intake Vital Signs 10/18/23 08:57 Height 5 ft 5 in Weight 157 lb BMI 26.1 BP 130/74 Blood Pressure Location Rt brachial Position Sitting Pulse 79 Pulse Source Pulse Oximeter Pulse Oximetry (%) 96 Intake Visit Reasons: SWV G0439 Intake Note: pt is here for medicare wellness visit, a1c done in office today Bankruptcy Processor Required: No Accompanied by: Self / Same As Patient Allergies No Known Allergies [No Known Allergies*] Allergy (Verified 10/18/23 08:57) Do you need a note to return to daycare/school/sports/work: No HPI SWV G0439 HPI Details Pt is here for an SWV. Denies fever, chills, and dizziness. [place] of care in scan pile. PPP will be scanned in chart and copy will be given to pt. Pt is following up with urology, nephrology, vascular, GI, and podiatry. HPI Comments History of Present Illness Details diabetes: Pt is a diabetic, on a statin. A1C in office today is 5.7. Due for microalbumin, will order. Denies polyuria, polydipsia, and neuropathy. Pt denies any signs and symptoms of hypoglycemia and does know how to correct it. Eye exam is up to date according to pt. [facility] Medical History Superior mesenteric artery syndrome Elevated serum creatinine Encounter for annual wellness visit (AWV) in Medicare patient Screening PSA (prostate specific antigen) Plantar callus CKD (chronic kidney disease) stage 3, GFR 30-59 ml/min Acquired hammertoes of both feet Type 2 diabetes mellitus without complication, without long-term current use of insulin Eczema Hearing loss Prostate CA HTN (hypertension) PVD (peripheral vascular disease) Carotid artery stenosis COPD (chronic obstructive pulmonary disease) Dyslipidemia Surgical History History of left-sided carotid endarterectomy Status post aortography with runoff History of atherectomy History of angioplasty H/O colonoscopy with polypectomy History of endarterectomy History of cataract surgery History of cataract surgery Family History Father Medical history non-contributory Mother Medical history non-contributory Son No problems noted. Daughter No problems noted. Daughter No problems noted. Social History Housing: House Alcohol intake: current Patient Tobacco Use Status: Former Tobacco user Years Smoked: quit 25 years ago e-Cigarette/Vaping Use: Never Used Second Hand Smoke Exposure: No service: Yes Current occupational status: retired Cognitive needs: No Hearing needs: No Vision needs: No Questionnaire Medicare Wellness Checkup What is your age?: 80 or older What gender do you identify with?: male During the past 4 weeks, how much have you been bothered by emotional problems such as feeling anxious, depressed, irritable, sad or downhearted, and blue?: slightly During the past 4 weeks, has your physical & emotional health limited your social activities with family, friends, neighbors, or groups?: slightly During the past 4 weeks, how much bodily pain have you generally had?: very mild pain During the past 4 weeks, was someone available to help you if you needed & wanted help?: yes, as much as I wanted During the past 4 weeks, what was the hardest physical activity you could do for at least 2 minutes?: moderate Can you get to places out of walking distance without help? (For eg., can you travel alone on buses, taxis or drive your car?): Yes Can you go shopping for groceries or clothes without someone's help?: Yes Can you prepare your own meals?: Yes Can you do your housework without help?: Yes Because of any health problems, do you need the help of another person with your personal care needs such as eating, bathing, dressing or getting around the house?: No Can you handle your own money without help?: Yes During the past 4 weeks, how would you rate your health in general?: good During the past 4 weeks how have things been going for you?: pretty well Are you having difficulties driving your car?: no Do you always fasten your seat belt when you are in a car?: yes, sometimes During past 4 weeks, have you been bothered by the following: never: Sexual problems?, Teeth or denture problems? and Problems using the telephone?, seldom: Falling or dizzy when standing up and sometimes: Trouble eating well? and Tiredness or fatigue? Have you fallen 2 or more times in the past year?: No Are you afraid of falling?: No Are you a smoker?: no During the past 4 weeks, how many drinks of wine, beer, or other alcoholic beverages did you have?: 1 drink or less per week Do you exercise for about 20 minutes 3 or more times a week?: no, I usually do not exercise this much Have you been given information to help with the following?: no: Hazards in your house that might hurt you? and no: Keeping track of your medications? How often do you have trouble taking medicines the way you have been told to take them?: I always take medicine as prescribed How confident are you that you can control & manage most of your health problems?: very confident What is your race?: White Mini Mental State Exam (MMSE) Orientation What is the (year) (season) (date) (day) (month)?: year, season, date, day and month Where are we (state) (county) (town or city) (hospital) (floor)?: state, county, town or city, hospital/clinic and floor Registration Name of 3 unrelated objects clearly and slowly, then ask patient to repeat all 3 of them. (1st repeat determines score. Make sure they can repeat all three): object 1, object 2 and object 3 Attention & Calculation (CHOOSE ONE) Spell WORLD backwards (DLROW): 5 letters Recall Ask patient to repeat the 3 items from question #3.: object 1, object 2 and object 3 Language Show patient a wristwatch & ask what it is. Repeat for pencil.: watch and pencil Ask the patient to repeat the phrase 'No ifs, ands, or buts' after you.: correct Ask the patient to 'take a piece of paper with their right hand' 'fold paper in half' 'place paper on floor': take paper in right hand, fold paper in half and place paper on floor Print the sentence 'CLOSE YOUR EYES' on a piece. If patient actually closes eyes then score.: followed written direction Give patient a blank piece of paper & ask to write a sentence. Score if it contains a noun & verb.: sentence contains subject and verb Ask patient to copy figure of intersecting pentagons exactly. Score if all 10 angles & 2 intersects are included.: all 10 angles present & 2 are intersected Score Score: 30 Activity of Daily Living Bathing - sponge bath, tub bath or shower: receives no assistance (gets in/out by self, if usual bathing means Dressing - getting clothes from closets & drawers, including inner/outer garments & fasteners.: gets clothes & gets completely dressed without help Toileting - going to the 'toilet room' for urine/bowel elimination & cleaning self/arranging clothes: goes to toilet room, cleans self, arranges clothes without help Transfer: moves in & out of bed and chair without help (may use support object) Continence: controls urination/bowel movements completely by self Feeding: feeds self without help Total Score: 0 Information obtained from: patient Using telephone: independent Traveling: independent Shopping: independent Preparing meals: independent Housework: independent Taking medicine: independent Managing money: independent PHQ-9 Over the last 2 weeks, how often have you been bothered by any of the following problems? 1. Little interest or pleasure in doing things: not at all 2. Feeling down, depressed, or hopeless: not at all 3. Trouble falling or staying asleep, or sleeping too much: not at all 4. Feeling tired or having little energy: not at all 5. Poor appetite or overeating: not at all 6. Feeling bad about yourself - or that you are a failure or have let yourself or your family down: not at all 7. Trouble concentrating on things, such as reading the newspaper or watching television: not at all 8. Moving or speaking so slowly that other people could have noticed. Or the opposite - being so fidgety or restless that you have been moving around a lot more than usual: not at all 9. Thoughts that you would be better off or of hurting yourself in some way: not at all Total score: 0 Depression Screening Interpretation: Negative Depression Screening Done: Yes 87570 - PHQ-9 Billing: Yes Source: Developed by Drs. Larry Ohara, Luci Anglin, Charlie Lees and colleagues, with an educational deanna from [employer]. Review of Systems Const Reports as per HPI Physical Exam Vital Signs: Last Vital Signs Pulse 79 10/18/23 08:57 BP 130/74 10/18/23 08:57 Pulse Ox 96 10/18/23 08:57 BMI result Body Mass Index 26.1 Const General: cooperative Orientation/consciousness: patient oriented x3 Resp Effort & Inspection: normal respiratory effort Auscultation: clear to auscultation bilaterally Cardio Other: ? faint systolic murmur Heart sounds: S1 normal heart sound present and S2 normal heart sound present Neuro Other: - romberg, swaying with tandem walk, can walk and turn, can rise from sitting to standing, did not pass whisper test on left General: patient oriented x3 Extrem Other: bilat feet: + sensation with use of monofilament, feet intact Psych Appearance: grossly normal Mental Status: mental status grossly normal Speech and movement: Normal speech and movement present Affect: normal affect Attitude: cooperative Thought process: Normal thought process present Thought content: Normal thought content present Insight: Good insight present (Psych) Judgement: Good judgement present (Psych) Results AMB Hemoglobin A1c AMB Hemoglobin A1c 5.7 % Last Edit by Bobo Devries CMA on 10/18/23 09: 44 Assessment & Plan Assessment & Plan (1) Type 2 diabetes mellitus without complication, without long-term current use of insulin: Code(s): E11.9 - Type 2 diabetes mellitus without complications Plan: Labs ordered (2) Encounter for subsequent annual wellness visit in Medicare patient: Code(s): Z00.00 - Encounter for general adult medical examination without abnormal findings Plan: Went over forms with pt Plan The patient agreed to the use of a medical library assistant for this encounter. Scribed for RY Jiang- by Mitra Garza medical library assistant, on 10/18/2023 at 09:10 EST. Orders: Orders Complete Blood Count Auto Diff Today E11.9 - Type 2 diabetes mellitus without complications Comprehensive [place]. Panel Fast Today E11.9 - Type 2 diabetes mellitus without complications UA CC w/rflx Micro + Cult Today E11.9 - Type 2 diabetes mellitus without complications Lipid Panel Today E11.9 - Type 2 diabetes mellitus without complications XR DEXA axial skeleton Today Z13.820 - Encounter for screening for osteoporosis AMB Hemoglobin A1c Today Z13.9 - Encounter for screening, unspecified TSH reflex Free T4 Today E11.9 - Type 2 diabetes mellitus without complications Microalbumin, Random (w Creat) Today E11.9 - Type 2 diabetes mellitus without complications Quality Reporting (2019) Depression/Bipolar (159/160/161/177) PHQ-9: Total score: 0 Coding Level of Care Code Medicare Subsequent (G0439) Est Pt Level 3 (26607) Diagnoses Type 2 diabetes mellitus without complication, without long-term current use of insulin E11.9 Encounter for subsequent annual wellness visit in Medicare patient Z00.00
[2023-10-18 08:57] VITALS: BP 130/74; PULSE 79; O2SAT 96; BMI 26.1
== END 2023-10-18 09:47 | disposition home or self-care (01) ==
PROVIDERS: PCP Nurse Practitioner Family; Visit Provider Nurse Practitioner Family
DX: Z00.00 Encounter for general adult medical examination without abnormal findings (principal); E11.9 Type 2 diabetes mellitus without complications
CPT/HCPCS: 83036; 99213; G0439

== ENCOUNTER 2023-11-02 08:18 | Outpatient (AMB) | payer MEDICARE, SELFPAY ==
--- NOTE | 2023-11-02 08:27 | AM.OFFVISNUR ---
Intake Visit Reasons: B-12 Allergies No Known Allergies [No Known Allergies*] Allergy (Verified 10/18/23 08:57) Office Meds cyanocobalamin (vitamin B-12) 1,000 mcg/mL injection solution Performing Provider: KLAUDIA Morales Performing Location[place] [facility] [place] [facility] Administered by: Cici Van RN on 11/02/23 08:27 Dose Route Admin Location Dispensed Lot Number Expiration Date [facility] [employer] Professor 1,000 mcg IM left deltoid 1 mL [id number] 12/14/24 9242-1016-98 [facility] Comments: Pt supplied Assessment & Plan Assessment & Plan Orders: Orders AMB Vitamin B12 Injection Patient Supplied Today E53.8 - Deficiency of other specified B group vitamins Medications: New cyanocobalamin (vitamin B-12) 1,000 mcg IM ONCE 1 mL 0RF E53.8 - Deficiency of other specified B group vitamins
== END 2023-11-02 08:28 | disposition home or self-care (01) ==
PROVIDERS: PCP Nurse Practitioner Family; Visit Provider Nurse Practitioner Family
DX: E53.8 Deficiency of other specified B group vitamins (principal)
CPT/HCPCS: J3420

== ENCOUNTER → 2023-11-02 08:18 | Outpatient (BNVA) | payer MEDICARE, SELFPAY | PROVIDERS: PCP Nurse Practitioner Family; Visit Provider Nurse Practitioner Family | DX: E53.8 Deficiency of other specified B group vitamins (principal) | CPT/HCPCS: 96372 ==

== ENCOUNTER 2023-12-07 08:20 | Outpatient (AMB) | payer MEDICARE, SELFPAY ==
--- NOTE | 2023-12-07 08:32 | AM.OFFVISNUR ---
Intake Visit Reasons: B-12 Intake Note: Pt arrived for monthly B-12 injection Allergies No Known Allergies [No Known Allergies*] Allergy (Verified 10/18/23 08:57) Office Meds cyanocobalamin (vitamin B-12) 1,000 mcg/mL injection solution Performing Provider: KLAUDIA Morales Performing Location: [facility] [place] [facility] Administered by: Cici Van RN on 12/07/23 08:33 Dose Route Admin Location Dispensed Lot Number Expiration Date [facility] Night Supervisor 1,000 mcg IM left deltoid 1 mL [id number] 06/13/25 5619-4030-[address] [facility] Comments: Pt supplied Assessment & Plan Assessment & Plan Orders: Orders AMB Vitamin B12 Injection Patient Supplied Today E53.8 - Deficiency of other specified B group vitamins Medications: New cyanocobalamin (vitamin B-12) 1,000 mcg IM ONCE 1 mL 0RF E53.8 - Deficiency of other specified B group vitamins
== END 2023-12-07 08:34 | disposition home or self-care (01) ==
PROVIDERS: PCP Nurse Practitioner Family; Visit Provider Nurse Practitioner Family
DX: E53.8 Deficiency of other specified B group vitamins (principal)
CPT/HCPCS: J3420

== ENCOUNTER 2023-12-07 10:28 | Outpatient (REF) | payer MEDICARE, SELFPAY ==
--- NOTE | ~2023-12-07 | MM_ITS ---
EXAMINATION: BONE DENSITOMETRY CLINICAL INDICATION: Encounter for screening for osteoporosis. COMPARISON: This is the patient's baseline examination. TECHNIQUE: Using a [employer] DXA System (software version: 13.1) manufactured by [employer], dual-energy x-ray absorptiometry was performed of the lumbar spine and left hip. The images are of good technical quality. Summary results are attached. FINDINGS: LEFT FEMUR, NECK: BMD 0.914 g/cm2, Z-score 0.6, T-score -1.2, osteopenia. LEFT FEMUR, TOTAL: BMD 0.977 g/cm2, Z-score 0.5, T-score -0.9, normal. AP SPINE L1-L4: BMD 1.114 g/cm2, Z-score 0.1, T-score -0.9, normal. IDENTIFIED RISK FACTORS: Parental hip fracture, secondary osteoporosis (intestinal or bowel disease, not IBS). HISTORY OF FRACTURE: None listed. MEDICATIONS: Multivitamin. MM/XR DEXA axial skeleton IMPRESSION: 1. DIAGNOSIS: Osteopenia based on the lowest T-score value of -1.2 in the femoral neck applying World Health Organization criteria. 2. 10-YEAR FRACTURE RISK PREDICTION, FRAX: Major osteoporotic fracture (clinical spine, forearm, hip or shoulder) 14.9%. Hip fracture 10.4%. 3. Treatment Recommendations: NOF guidelines recommend consideration for treatment in postmenopausal women and men age 50 and older presenting with the following: -A hip or vertebral (clinical or morphometric) fracture. -T-score less than or equal to -2.5 at the femoral neck or spine after appropriate evaluation to exclude secondary causes. -Low bone mass at the hip or spine and a 10-year fracture probability by FRAX of greater than or equal to 3% for hip fracture or greater than or equal to 20% for major osteoporotic fracture based on the [place] adapted WHO algorithm. 4. Other Recommendations: All treatment decisions require clinical judgment and consideration of individual patient factors, including patient preferences, comorbidities, previous drug use, risk factors not captured in the FRAX model (e.g. frailty, falls, vitamin D deficiency, increased bone turnover, interval significant decline in bone density) and possible under or overestimation of fracture risk by FRAX. Additional medical evaluation for secondary cause of low bone mineral density may be appropriate. FUTURE SCAN RECOMMENDATION: People with diagnosed cases of osteoporosis or at high risk for fracture should have regular bone mineral density tests. For patients eligible for Medicare, routine testing is allowed once every 2 years. The testing frequency can be increased to one year for patients who have rapidly progressing disease, those who are receiving or discontinuing medical therapy to restore bone mass, or have additional risk factors. Electronically signed by: Livan Alcantar MD 12/14/2023 01:33 PM EDT
== END 2023-12-07 10:29 | disposition home or self-care (01) ==
LOC: HO.MAMMO 10:28
PROVIDERS: PCP Nurse Practitioner Family; Visit Provider Nurse Practitioner Family
DX: Z13.820 Encounter for screening for osteoporosis (principal); E55.9 Vitamin D deficiency, unspecified; E53.8 Deficiency of other specified B group vitamins
CPT/HCPCS: 77080; 96372

== ENCOUNTER 2023-12-15 11:27 | Outpatient (REF) | payer MEDICARE, SELFPAY ==
--- NOTE | ~2023-12-15 | CT_ITS ---
EXAMINATION: CT ABDOMEN AND PELVIS WITHOUT CONTRAST CLINICAL INFORMATION: Diverticulitis. Evaluate for perforation/abscess. COMPARISON: Multiple priors, most recent CT abdomen/pelvis dated 08/04/2023. TECHNIQUE: Multidetector volumetric imaging was performed from the superior aspect of the liver through the pubic symphysis. Sagittal and coronal reformatted images were obtained on the technologist's workstation. This CT examination was performed using dose optimization techniques as appropriate, variously including the following: *Automated exposure control *Adjustment of mA and/or kV according to patient size (this includes techniques or standardized protocols for targeted exams where dose is matched to indication/reason for exam; i.e. extremities or head) *Use of iterative reconstruction technique DLP: 429 mGy-cm FINDINGS: LUNG BASES: The visualized lung bases are unremarkable. LIVER, GALLBLADDER, AND BILIARY TREE: The liver is normal in size, shape, and attenuation. Tiny hepatic cysts are unchanged. No new focal hepatic lesion or biliary ductal dilatation is present. The gallbladder is unremarkable with no evidence of radiopaque gallstones, gallbladder wall thickening, or obvious pericholecystic inflammatory changes. PANCREAS: Unremarkable. SPLEEN: Unremarkable. ADRENAL GLANDS: Unremarkable. KIDNEYS AND URETERS: The kidneys are normal in size, shape, and attenuation. No hydronephrosis, hydroureter, or calculi seen. Simple bilateral renal cysts are redemonstrated. Findings are not clinically significant and no dedicated follow-up imaging is recommended. No perinephric stranding. BLADDER: Nondistended and unremarkable. GASTROINTESTINAL TRACT: No small or large bowel obstruction. Oral contrast reaches the cecum. There are diffuse, scattered areas of circumferential, irregular bowel wall thickening throughout the small bowel. Minimal if any adjacent inflammatory change. Diffuse areas of scattered small bowel diverticulosis. No focal area of significant diverticulitis. Additionally, there are areas of colonic diverticulosis without evidence of colonic diverticulitis. No extraluminal air or evidence of perforation/abscess formation. PERITONEAL CAVITY: No intra-abdominal free air or free fluid. ABDOMINAL WALL: No significant hernia is appreciated. LYMPH NODES: No lymphadenopathy. VASCULAR: No abdominal aortic dilatation or dissection. Atherosclerotic calcifications. PELVIC VISCERA: The prostate and seminal vesicles are unremarkable. OSSEOUS STRUCTURES: No acute osseous abnormality. 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 CT/CT abdomen pelvis wo IV con IMPRESSION: 1. Diffuse, scattered areas of circumferential, irregular small bowel wall thickening. Minimal if any adjacent inflammatory change. Findings could indicate an infectious or inflammatory process. No evidence of perforation or abscess formation. 2. Chronic diverticulosis without evidence of acute diverticulitis. No small or large bowel obstruction. 3. No intra-abdominal mass, lymphadenopathy, or ascites. 4. Additional chronic findings are unchanged. Fleischner guidelines were followed. Electronically signed by: Adrian Barrera MD 12/15/2023 04:32 PM EDT
[2023-12-15] MEDS: Barium Sulfate Oral (Mocha) 450 ML ORAL.SUSP 900 ML PO (14:01)
== END 2023-12-15 11:28 | disposition home or self-care (01) ==
LOC: HO.CT 11:27
PROVIDERS: PCP Nurse Practitioner Family; Visit Provider Internal Medicine
DX: K57.00 Diverticulitis of small intestine with perforation and abscess without bleeding (principal)
CPT/HCPCS: 74176

== ENCOUNTER 2023-12-18 09:50 | Outpatient (REF) | payer MEDICARE, SELFPAY ==
--- NOTE | ~2023-12-18 | US_ITS ---
EXAMINATION: US EXTRACRANIAL CAROTID DUPLEX, BILATERAL CLINICAL INFORMATION: Carotid stenosis. COMPARISON: 08/01/2022. TECHNIQUE: Real-time ultrasound and Doppler techniques (integrating B-mode 2-D vascular images, Doppler spectral analysis and color-flow Doppler imaging) were utilized to interrogate the extracranial carotid arteries, the vertebral arteries and proximal subclavian arteries bilaterally. The degree of stenosis is determined by criteria similar to NASCET. FINDINGS: Right Side: 1. There is marked atherosclerotic plaque seen in the bifurcation/proximal ICA region. 2. The common carotid artery PSV proximally is 83 cm/s and distally 86 cm/s. 3. The proximal internal carotid artery velocities are 267 cm/s systolic and 16 cm/s diastolic. 4. The proximal external carotid artery PSV is 258 cm/s. 5. The vertebral artery was not seen. 6. The subclavian artery waveforms are normal. Left Side: 1. There is mild atherosclerotic plaque seen in the bifurcation/proximal ICA region. 2. The common carotid artery PSV proximally is 112 cm/s and distally 84 cm/s. 3. The proximal internal carotid artery velocities are 73 cm/s systolic and 12 cm/s diastolic. 4. The proximal external carotid artery PSV is 208 cm/s. 5. The vertebral artery shows antegrade flow. 6. The subclavian artery waveforms are normal. US/US carotid duplex BI IMPRESSION: 1. RIGHT: Moderate, hemodynamically significant stenosis of the proximal right internal carotid artery corresponding to a 50-79% stenosis by velocity criteria. 2. LEFT: Minimal, non-hemodynamically significant stenosis of the proximal left internal carotid artery corresponding to a 0-49% stenosis by velocity criteria. 3. There is no change in the category severity of disease when compared to the previous study dated 08/01/2022. Electronically signed by: Scott Hernandez MD 12/26/2023 12:53 PM [facility]
== END 2023-12-18 09:51 | disposition home or self-care (01) ==
LOC: HO.HMGCX 09:50
PROVIDERS: PCP Nurse Practitioner Family; Visit Provider Surgery Vascular Surgery
DX: I65.23 Occlusion and stenosis of bilateral carotid arteries (principal)
CPT/HCPCS: 93880

== ENCOUNTER 2024-01-02 10:10 | Outpatient (AMB) | payer MEDICARE, SELFPAY ==
--- NOTE | 2024-01-02 10:17 | A.OFFVIS_ITS ---
Intake Visit Reasons: Follow Up 12/17 Carotid US Intake Note: Patient here for follow up carotid US. No complaints. Accompanied by: Spouse Allergies No Known Allergies [No Known Allergies*] Allergy (Verified 01/02/24 10:18) HPI HPI Follow Up 12/17 Carotid US: Details: Very pleasant 83-year-old gentleman presents for carotid follow-up. He reports that he is doing fairly well. He actually had undergone left carotid endarterectomy with us nearly 5 years ago. He remains asymptomatic. He does go to the gym about 2 to 3 times a week and walks nearly a mi on the treadmill. He now presents for routine follow-up with noninvasive carotid testing. [facility] Medical History Superior mesenteric artery syndrome Elevated serum creatinine Encounter for annual wellness visit (AWV) in Medicare patient Screening PSA (prostate specific antigen) Plantar callus CKD (chronic kidney disease) stage 3, GFR 30-59 ml/min Acquired hammertoes of both feet Type 2 diabetes mellitus without complication, without long-term current use of insulin Eczema Hearing loss Prostate CA HTN (hypertension) PVD (peripheral vascular disease) Carotid artery stenosis COPD (chronic obstructive pulmonary disease) Dyslipidemia Surgical History History of left-sided carotid endarterectomy Status post aortography with runoff History of atherectomy History of angioplasty H/O colonoscopy with polypectomy History of endarterectomy History of cataract surgery History of cataract surgery Family History Father Medical history non-contributory Mother Medical history non-contributory Son No problems noted. Daughter No problems noted. Daughter No problems noted. Social History Housing: House Alcohol intake: current Patient Tobacco Use Status: Former Tobacco user Years Smoked: quit 25 years ago e-Cigarette/Vaping Use: Never Used Second Hand Smoke Exposure: No service: Yes Current occupational status: retired Cognitive needs: No Hearing needs: No Vision needs: No Review of Systems Const All systems reviewed & are unremarkable except as noted in HPI and below Reports no additional complaints ENT Reports Normal hearing present Card Denies chest pain, Denies chest pain at rest, Denies chest pain with activity and Denies pedal edema Resp Denies cough GI Denies abdominal pain Musc Denies abnormal gait, Denies muscle cramps and Denies radiating pain into limb Skin/Breast Denies skin ulcer and Denies wounds Neuro Reports Normal hearing present and Denies abnormal gait Psych Reports no additional complaints Physical Exam Const General: cooperative, healthy appearing and comfortable Orientation/consciousness: oriented to person, oriented to place and oriented to time HEENT Head: Yes normal to inspection Neck Neck: Yes normal visual inspection Carotids: no bruits Chest Chest palpation & inspection: normal inspection of the chest Resp Effort & Inspection: normal respiratory effort and able to speak in complete sentences Auscultation: clear to auscultation bilaterally, no crackles, no rales, no rhonchi and no wheezes Cardio Rate: regular rate Rhythm: regular rhythm Heart sounds: S1 normal heart sound present and S2 normal heart sound present Bruits: no carotid bruits Peripheral pulses: Peripheral pulses 2+ throughout GI Inspection: Yes normal to inspection Skin Wounds: no wounds Hair: normal Neuro General: oriented to person, oriented to place and oriented to time Cranial nerves: Yes CN's II-XII intact bilaterally and Yes Normal hearing present Cognition (Neuro): normal cognition Motor exam (neuro): 5/5 motor strength present throughout Extrem Other: venous exam: No significant superficial varicosities or spider telangiectasias, minimal edema General: No clubbing, No cyanosis and No edema Psych Appearance: grossly normal Mental Status: mental status grossly normal Speech and movement: Normal speech and movement present Results Reviewed Results Reviewed: 12/18/2023 right carotid 50-79% stenosis with a peak systolic of 267 left side 0- 49% stenosis. Written report and images were reviewed. This does appear to be similar to prior studies. Assessment & Plan Assessment & Plan (1) Bilateral carotid artery stenosis: Comment: 11/20/2018 - left carotid endarterectomy Code(s): I65.23 - Occlusion and stenosis of bilateral carotid arteries Category: Medical Plan: In short patient has asymptomatic carotid disease. We have reviewed signs and symptoms of a stroke. We also discussed risk factor modification inclusive a healthy diet low in cholesterol. The patient will follow up with us with surveillance ultrasound of the carotids 1 year. Should there be any changes or signs or symptoms of a stroke we will be happy to see them back sooner. Thank you for allowing us to participate in this patient's care. If there are any questions or concerns please do not hesitate to contact us. Please note a longitudinal relationship has been created with the patient and we have been following and surveillance this chronic condition. Orders: Orders US carotid duplex BI 1 Year I65.23 - Occlusion and stenosis of bilateral carotid arteries Coding Level of Care Code Est Pt Level 4 (81047) Complex EM visit Add On G2211 Diagnoses Bilateral carotid artery stenosis I65.23
== END 2024-01-02 10:37 | disposition home or self-care (01) ==
PROVIDERS: PCP Nurse Practitioner Family; Visit Provider Surgery Vascular Surgery
DX: I65.23 Occlusion and stenosis of bilateral carotid arteries (principal)
CPT/HCPCS: 99214; G2211

== ENCOUNTER → 2024-01-02 10:10 | Outpatient (BNVA) | payer MEDICARE, SELFPAY | PROVIDERS: PCP Nurse Practitioner Family; Visit Provider Surgery Vascular Surgery | DX: I65.23 Occlusion and stenosis of bilateral carotid arteries (principal) | CPT/HCPCS: 99212 ==

== ENCOUNTER 2024-01-04 08:23 | Outpatient (AMB) | payer MEDICARE, SELFPAY ==
--- NOTE | 2024-01-04 08:35 | AM.OFFVISNUR ---
Intake Visit Reasons: B-12 Allergies No Known Allergies [No Known Allergies*] Allergy (Verified 01/02/24 10:18) Nursing Note Pt amb (I)) gait steady to room 1. Medicated x 1 with Vitamin B12 to left deltoid. Office Meds cyanocobalamin (vitamin B-12) 1,000 mcg/mL injection solution Performing Provider: KLAUDIA Morales Performing Location: [facility] [place] Primary Care-[facility] Administered by: Mallory Hogan on 01/04/24 08:37 Dose Route Admin Location Dispensed Lot Number Expiration Date [facility] Ship Runner 1,000 mcg IM 1 mL [id number] 01/02/26 67631-060-13 ANITA GAO Assessment & Plan Assessment & Plan Orders: Orders AMB Vitamin B12 Injection Patient Supplied Today E53.8 - Deficiency of other specified B group vitamins Medications: New cyanocobalamin (vitamin B-12) 1,000 mcg IM ONCE 1 mL 0RF E53.8 - Deficiency of other specified B group vitamins
== END 2024-01-04 09:34 | disposition home or self-care (01) ==
PROVIDERS: PCP Nurse Practitioner Family; Visit Provider Nurse Practitioner Family
DX: E53.8 Deficiency of other specified B group vitamins (principal)

== ENCOUNTER 2024-01-04 08:36 | Outpatient (REF) | payer MEDICARE, SELFPAY ==
[2024-01-04 10:00] LABS: MANUAL DIFF FLAG NO
[2024-01-04 10:08] LABS: Basophils Percent Auto 0.5 % (0-2); Eosinophils Absolute Auto 0.2 X10*3/uL (0.0-0.4); Eosinophils Percent Auto 5.5 % (0-4); Hematocrit 35.4 % (42.0-52.0); Hemoglobin 11.6 g/dl (14.0-18.0); Imm Gran Abs Auto 0.01 X10*3/uL (0.00-0.03); Imm Gran Pct Auto 0.3 % (0.0-0.4); Lymphocytes Absolute Auto 1.2 X10*3/uL (1.2-4.9); Lymphocytes Percent Auto 29.4 % (20-40); Mean Corpuscular HGB Conc 32.8 g/dl (31.0-36.0); Mean Corpuscular Hemoglobin 29.8 pg (27.0-33.0); Mean Platelet Volume 11.7 fL (9.4-12.4); Monocytes Absolute Auto 0.3 X10*3/uL (0.1-1.2); Neutrophils Absolute Auto 2.3 x10*3/uL (2.0-8.3); Neutrophils Percent Auto 57.3 % (45-73); Platelet Count 162 X10*3/uL (160-400); Red Blood Count 3.89 X10*6/uL (4.60-5.80); Red Cell Distribution Width 16.9 % (11.0-16.0)
[2024-01-04 10:33] LABS: Alanine Aminotransferase 19 U/L (0-40); Albumin Level 3.7 g/dL (3.5-5.0); Alkaline Phosphatase 42 U/L (39-117); Anion Gap 13 (12-20); Aspartate Amino Transferase 39 U/L (5-37); Bilirubin Direct 0.2 mg/dL (0.0-0.5); Bilirubin Total 0.5 mg/dL (0.0-1.0); Blood Urea Nitrogen 22 mg/dL (9-16); Calcium 9.3 mg/dL (8.4-10.2); Carbon Dioxide 23 mmol/L (22-29); Chloride 111 mmol/L (96-108); Estimated Glomerular Filt Rate 53; Glucose Random 138 mg/dL (60-115); Iron 83 mcg/dL (45-160); Percent Iron Saturation 23 % (15-50); Potassium 4.5 mmol/L (3.3-5.1); Sodium 142 mmol/L (135-145); Total Iron Binding Capacity 356 mcg/dL (228-428); Total Protein 6.2 g/dL (6.5-8.0); Unsaturated Iron Binding 273 ug/dL
[2024-01-04 10:49] LABS: Ferritin 53 ng/mL (20-250); TSH reflex Free T4 4.01 uIU/mL (0.32-4.0)
[2024-01-04 11:38] LABS: Free T4 (Free Thyroxine) 1.17 ng/dL (0.71-1.85)
== END 2024-01-04 08:37 | disposition home or self-care (01) ==
LOC: HO.HMGCLDS 08:36
PROVIDERS: PCP Nurse Practitioner Family; Visit Provider Internal Medicine
DX: E53.8 Deficiency of other specified B group vitamins (principal); K57.00 Diverticulitis of small intestine with perforation and abscess without bleeding; D64.9 Anemia, unspecified
CPT/HCPCS: 36415; 80048; 80076; 82728; 83540; 84439; 84443; 85025; 96372; J3420

== ENCOUNTER 2024-02-01 08:24 | Outpatient (AMB) | payer MEDICARE, SELFPAY ==
--- NOTE | 2024-02-01 08:40 | AM.OFFVISNUR ---
Intake Visit Reasons: B12 Intake Note: Pt arrived for monthly B-12 injection Allergies No Known Allergies [No Known Allergies*] Allergy (Verified 01/02/24 10:18) Office Meds cyanocobalamin (vitamin B-12) 1,000 mcg/mL injection solution Performing Provider: KLAUDIA Morales Performing Location: [facility] [place] Adult Primary Care-[facility] Administered by: Cici Van RN on 02/01/24 08:42 Dose Route Admin Location Dispensed Lot Number Expiration Date [facility] Resource Conservationist 1,000 mcg IM left deltoid 1 mL [id number] 06/13/25 [id number] [facility] Comments: Pt supplied Assessment & Plan Assessment & Plan Orders: Orders AMB Vitamin B12 Injection Patient Supplied Today E53.8 - Deficiency of other specified B group vitamins Medications: New cyanocobalamin (vitamin B-12) 1,000 mcg IM ONCE 1 mL 0RF E53.8 - Deficiency of other specified B group vitamins
== END 2024-02-01 11:19 | disposition home or self-care (01) ==
PROVIDERS: PCP Nurse Practitioner Family; Visit Provider Nurse Practitioner Family
DX: E53.8 Deficiency of other specified B group vitamins (principal)

== ENCOUNTER → 2024-02-01 08:24 | Outpatient (BNVA) | payer MEDICARE, SELFPAY | PROVIDERS: PCP Nurse Practitioner Family; Visit Provider Nurse Practitioner Family | DX: E53.8 Deficiency of other specified B group vitamins (principal) | CPT/HCPCS: 96372; J3420 ==

== ENCOUNTER 2024-03-06 10:16 | Outpatient (AMB) | payer MEDICARE, SELFPAY ==
[2024-03-06 10:19] VITALS: BP 132/70; PULSE 76; O2SAT 100; BMI 27.8
--- NOTE | 2024-03-06 10:19 | A.OFFPC_ITS ---
Vital Signs 03/06/24 10:19 Height 5 ft 5 in Weight 167 lb BMI 27.8 BP 132/70 Blood Pressure Location Rt brachial Position Sitting Pulse 76 Pulse Source Pulse Oximeter Pulse Oximetry (%) 100 Intake Visit Reasons: 4 month follow up Intake Note: pt is here for 4 mon f.up - DM Manufacturing Lab Technician Required: No Accompanied by: Spouse Allergies No Known Allergies [No Known Allergies*] Allergy (Verified 03/06/24 10:27) Medication List - Last Reconciled 03/06/24 by RY Morales-MARTY aspirin 81 mg PO DAILY atorvastatin 40 mg PO BEDTIME blood sugar diagnostic ([employer] Ultra Test strips) Use to check blood sugar daily blood sugar diagnostic test BS once a day cholecalciferol (vitamin D3) 25 mcg PO DAILY cyanocobalamin (vitamin B-12) intramuscularly QMONTHLY; Q monthly 30 days diltiazem HCl CD 240 mg PO DAILY fenofibrate 160 mg PO DAILY 90 days fluticasone propionate 50 mcg/actuation 1 spray intranasal DAILY magnesium 200 mg PO BID metformin ER 500 mg PO BID 90 days methylcellulose (laxative) (Citrucel) 500 mg PO DAILY PRN ondansetron HCl 4 mg PO DAILY 90 days pantoprazole 20 mg PO DAILY pioglitazone 30 mg PO DAILY trazodone 50 mg PO DAILY Tobacco use date assessed: 03/06/24 Fall risk assessment: No Falls in past year Last assessed Fall Risk: 03/06/24 Dental Screening Dental Screen Date: 03/06/24 Did you have a dental visit in the last 12 months?: Yes Did you have a dental problem in the last 6 months where you did not have access to dental care?: No Was dental information given to patient?: Patient has dentist HPI 4 month follow up HPI Details Chief Complaint The patient came in for a follow-up with concerns regarding diabetes management and potential cognitive decline. History of Present Illness The patient is an 83-year-old male presenting with diabetes for management follow-up. Recent assessment shows an HbA1c level of 5.1%, which may be somewhat inaccurate due to a slight anemia. The patient denies experiencing neuropathy, polyuria, or polydipsia at this time. He is adhering to a routine podiatric care schedule with an appointment scheduled for tomorrow. Eye examinations are current. The patient also received a B12 injection today, continuing his monthly regimen. His current B12 levels are planned to be checked next month. Additionally, the patient's has reported mild forgetfulness. There is a notable family history of dementia, with the patient's father having experienced this condition. The patient underwent a Mini-Mental Status Examination today, scoring 27/30. Social History - Family status: - Family history of dementia Health Maintenance - Monthly B12 injections administered - Industrial Relations Representative appointment for foot care s cheduled - Current on eye examinations - Mini-Mental Status Examination perform ed, score was 27/30 Review of Systems - Neurological: Denies neuropathy - Genitourinary: Denies polyuria - Endocrine: Denies polydipsia - Cardiovascular: Denies chest pain - Respiratory: Denies shortness of breat h - Vision: Denies blurred vision Physical Exam General: Cooperative, healthy appearing, comfortable, no acute distress and well developed Orientation: Patient oriented x3 Limitations: No limitations Head: Normal to inspection Ears: Hearing grossly normal bilaterally Nose: Normal external nose present Face and sinus: Normal facial exam Eyes: Appearance normal, both eyes and all related structures Neck: Normal visual inspection and Yes full ROM Respiratory: Normal respiratory effort and able to speak in complete sentences. Clear to auscultation bilaterally Cardiovascular: Regular rate and rhythm. Normal S1 and S2 GI: Normal to inspection. Soft to palpation and nontender Skin: No rashes or lesions noted Neuro: Patient oriented x3, Mini mental exam score 27/30 Extremities: Normal to inspection Results - Labs: HbA1c at 5.1% - Tests: Mini-Mental Status Examination scored 27/30 Plan - Continue monitoring diabetes with regu lar HbA1c checks. - Ensure regular monthly injections and plan to reassess levels next month. - Continue scheduled podiatric care and maintain current eye examination routine. - Due to family history of dementia and slight cognitive decline, I will consider Aricept in the future if further cognitive deterioration is observed. Patient was informed and verbally consented to the use of an ambient scribe for clinic note documentation during this visit. Discussion Notes I discussed with the patient and his the management of his diabetes, highlighting the importance of regular monitoring of HbA1c levels, especially considering the slight anemia that may affect accuracy. We also reviewed his cognitive health, taking into account the family history of dementia. I explained the score from the Mini-Mental Status Examination, noting it as a measure to monitor for potential cognitive decline. There was a discussion about potentially introducing Aricept if the need arises, recognizing the success his father experienced with the medication. I emphasized maintaining current preventative measures and the significance of regular follow-ups. Patient Instructions - Continue with monthly B12 injections a nd maintain scheduled foot and eye care appointments. - Monitor glucose levels and report any new symptoms of neuropathy, polyuria, or polydipsia. - Be observant of any changes in memory or cognitive function and communicate these changes during future visits. - Follow all discussed lifestyle and a [facility] maintenance practices. [facility] Medical History Superior mesenteric artery syndrome Elevated serum creatinine Encounter for annual wellness visit (AWV) in Medicare patient Screening PSA (prostate specific antigen) Plantar callus CKD (chronic kidney disease) stage 3, GFR 30-59 ml/min Acquired hammertoes of both feet Type 2 diabetes mellitus without complication, without long-term current use of insulin Eczema Hearing loss Prostate CA HTN (hypertension) PVD (peripheral vascular disease) Carotid artery stenosis COPD (chronic obstructive pulmonary disease) Dyslipidemia Surgical History History of left-sided carotid endarterectomy Status post aortography with runoff History of atherectomy History of angioplasty H/O colonoscopy with polypectomy History of endarterectomy History of cataract surgery History of cataract surgery Family History Father Medical history non-contributory Mother Medical history non-contributory Son No problems noted. Daughter No problems noted. Daughter No problems noted. Social History Housing: House Alcohol intake: current Patient Tobacco Use Status: Former Tobacco user Years Smoked: quit 25 years ago e-Cigarette/Vaping Use: Never Used Second Hand Smoke Exposure: No service: Yes Current occupational status: retired Cognitive needs: No Hearing needs: No Vision needs: No Questionnaire PHQ-9 Over the last 2 weeks, how often have you been bothered by any of the following problems? 1. Little interest or pleasure in doing things: not at all 2. Feeling down, depressed, or hopeless: not at all 3. Trouble falling or staying asleep, or sleeping too much: not at all Source: Developed by Drs. Larry Ohara, Luci Anglni, Charlie Lees and colleagues, with an educational deanna from [employer]. Thrive Questionnaire Date Thrive assessed: 03/06/24 ELISABET-7 AMB Questionnaire ELISABET-7 Date ELISABET - 7 assessed: 02/16/23 Source: Developed by Drs. Larry Ohara, Luci Anglin, Charlie Lees and colleagues, with an educational deanna from [employer]. Physical exam (Primary Care) Vital Signs: Last Vital Signs Pulse 76 03/06/24 10:19 BP 132/70 03/06/24 10:19 Pulse Ox 100 03/06/24 10:19 BMI result Body Mass Index 27.8 Tobacco/Smoking Status: Tobacco use Status Tobacco use date assessed 03/06/24 03/06/24 10:29 Patient Tobacco Use Status Former Tobacco user 03/06/24 10:20 e-Cigarette/Vaping Use Never Used 03/06/24 10:20 Thrive Assessment: Date of Thrive Assessment Date Thrive assessed 03/06/24 03/06/24 10:20 Office Meds cyanocobalamin (vitamin B-12) 1,000 mcg/mL injection solution Performing Provider: JOSH Morales [place] [facility] [place] Administered by: Cici Van RN on 03/06/24 11:16 Dose Route Admin Location Dispensed Lot Number Expiration Date [facility] Insurance And Benefits Clerk 1,000 mcg IM Left deltoid 1 mL [id number] 12/14/25 [id number] ANITA GAO Comments: Pt supplied Results AMB Hemoglobin A1c AMB Hemoglobin A1c 5.1 % Last Edit by Bobo Devries CMA on 03/06/24 10: 45 Results Reviewed Results Reviewed: Laboratory Last Values Hgb A1c (Clinic) 5.1 % (4.0-6.0) 03/06/24 10:45 Coding Level of Care Code Est Pt Level 3 (72347) Diagnoses Vitamin D deficiency E55.9 Diabetes E11.9 B12 deficiency E53.8 Forgetfulness R68.89 Assessment & Plan Assessment & Plan (1) Vitamin D deficiency: Code(s): E55.9 - Vitamin D deficiency, unspecified Category: Medical (2) Diabetes: Code(s): E11.9 - Type 2 diabetes mellitus without complications Category: Medical (3) B12 deficiency: Code(s): E53.8 - Deficiency of other specified B group vitamins Category: Medical (4) Forgetfulness: Code(s): R68.89 - Other general symptoms and signs Category: Medical Plan . Orders: Orders AMB Hemoglobin A1c Today Z13.9 - Encounter for screening, unspecified Complete Blood Count Auto Diff Today E11.9 - Type 2 diabetes mellitus without complications, E55.9 - Vitamin D deficiency, unspecified Comprehensive [place]. Panel Fast Today E11.9 - Type 2 diabetes mellitus without complications, E55.9 - Vitamin D deficiency, unspecified Vitamin B12 Today E11.9 - Type 2 diabetes mellitus without complications, E55.9 - Vitamin D deficiency, unspecified Vitamin D 25-OH Total Today E11.9 - Type 2 diabetes mellitus without complications, E55.9 - Vitamin D deficiency, unspecified TSH reflex Free T4 Today E11.9 - Type 2 diabetes mellitus without complications, E55.9 - Vitamin D deficiency, unspecified UA CC w/rflx Micro + Cult Today E11.9 - Type 2 diabetes mellitus without complications, E55.9 - Vitamin D deficiency, unspecified Lipid Panel Today E11.9 - Type 2 diabetes mellitus without complications, E55.9 - Vitamin D deficiency, unspecified AMB Vitamin B12 Injection Patient Supplied Today E53.8 - Deficiency of other specified B group vitamins
--- OUTSIDE RECORDS SUMMARY | 2024-03-06 11:16 | XMS_ITS ---
Author Organization [facility] Address [address] [place] [address] Care Team Providers Care Music Librarian Name Role Phone TOMMY CHAPIN Primary Care Provider Kris Tate [phone] Encounters Encounter Location Date Provider Diagnosis [facility] [address] [place] [address] 12/05/2023 Kris Infante PLAN OF TREATMENT Next Appt Details Provider Name:Kris Infante , 04/23/2024 10:50:00 AM, [address], [address], [place], [address],
--- OUTSIDE RECORDS SUMMARY | 2024-03-06 11:16 | XMS_ITS | Clinical Summary ---
Author Organization [facility] Address [address] [place] [address] Care Team Providers Care Coat Agent Name Role Phone Unavailable Primary Care Provider Unavailabl e Social History Tobacco Use Types Packs/Day Years Used Date Smoking Tobacco: Never Assessed Sex and Gender Information Value Date Recorded Sex Assigned at Not on file Gender Identity Not on file Sexual Orientation Not on file Plan of Treatment Health Maintenance Due Date Last Done Comments DTaP/Tdap/Td Vaccines (1 - Tdap) 1960 Pneumococcal Vaccines 50+ (1 of 1 - PCV) 1991 Zoster (Shingles) Vaccine (1 of 2) 1991 RSV Vaccine 60 years and old er and Patients (1 - 1-dose 75+ series) 2016 COVID-19 Vaccine (2023-2 5 season) 2023 Hepatitis B Vaccines Aged Out No long er eligible based on patient's age to complete this topic
--- OUTSIDE RECORDS SUMMARY | 2024-03-06 11:16 | XMS_ITS ---
Author Organization [facility] Address [address] [place] [address] Care Team Providers Care Fashion Adviser Name Role Phone TOMMY CHAPIN Primary Care Provider Kris Tate Unavailable [phone] Encounters Encounter Location Date Provider Diagnosis [facility] [address] [place] [address] 12/21/2023 Kris Infante PLAN OF TREATMENT Next Appt Details Provider Name:Kris Infante , 04/23/2024 10:50:00 AM, [address], [address], [place], [address],
--- OUTSIDE RECORDS SUMMARY | 2024-03-06 11:16 | XMS_ITS ---
Author Organization [facility] Address [address] [place] [address] Care Team Providers Care Electric Meter Technician Name Role Phone TOMMY CHAPIN Primary Care Provider Kris Tate [phone] Encounters Encounter Location Date Provider Diagnosis [facility] [address] [place] [address] 01/04/2024 Kris Infante PLAN OF TREATMENT Next Appt Details Provider Name:Kris Infante , 04/23/2024 10:50:00 AM, [address], [address], [place], [address],
--- OUTSIDE RECORDS SUMMARY | 2024-03-06 11:17 | XMS_ITS | Clinical Summary ---
Author Organization [facility] Address [address] [address] Phone Care Team Providers Care Country Printer Name Role Phone Cristhian Durán NP Primary Care Provider [phone] Allergies No known active allergies Medications atorvastatin (LIPITOR) 40 MG tablet 04/18/2022 Active dilTIAZem CD (CARDIZEM CD) 240 MG 24 hr capsule 04/06/2022 Active fenofibrate (TRIGLIDE) 160 MG tablet 04/06/2022 Active fluticasone (FLONASE) 50 MCG/ACT nasal spray 03/20/2022 Active metFORMIN XR (GLUCOPHAGE-XR) 500 MG 24 hr tablet 02/09/2022 Active ondansetron (ZOFRAN) 4 MG tablet 04/10/2022 Active pioglitazone (ACTOS) 30 MG tablet 03/01/2022 Active traZODone (DESYREL) 50 MG tablet 03/08/2022 Active Magnesium Oxide -Mg Supplement 200 MG tablet Take 1 tablet by mouth in the morning and 1 tablet in the evening. 180 tablet 3 06/09/2023 5 Active Active Problems Problem Noted Date Diagnosed Date Hypomagnesemia 08/03/2022 Stage 3b chronic kidney disease 05/09/2022 Diabetes mellitus, not otherwise specified 05/09 Hypertension 05/09/2022 Immunizations Name Administration Dates Next Due Influenza (IM) Preservative Free 021,12/16/2019,01/14/2019,10/14/2017 ,03/17/2017,12/15/2015 Family History Medical History Relation Comments Cancer Brother Cancer Other Relation Status Comments Brother Father Mother Other Social History Tobacco Use Types Packs/Day Years Used Date Smoking Tobacco: Former Cigarettes Smokeless Tobacco: Never Tobacco Cessation:Counseling Given: No Alcohol Use Standard Drinks/Week Comments Yes 0 (1 standard drink = 0.6 oz pur e alcohol) Sex and Gender Information Value Date Recorded Sex Assigned at Not on file Legal Sex Male 8:16 AM EST Gender Identity Not on file Sexual Orientation Not on file Last Filed Vital Signs Vital Sign Reading Time Taken Comments Blood Pressure 149/80 11/16/2023 9:50 AM EDT Pulse 82 11/16/2023 9:50 AM EDT Temperature - - Respiratory Rate - - Oxygen Saturation 97% 11/16/2023 9:50 AM EDT Inhaled Oxygen Concentration - - Weight 72.4 kg (159 lb 9.6 oz) 11/16/2023 9:50 A M EDT Height 170.2 cm (5' 7 ) 11/16/2023 9:50 AM EDT Body Mass Index 25 11/16/2023 9:50 AM EDT Plan of Treatment Upcoming Encounters Date Type Department Care Team (Late st Contact Info) Description 05/16/2024 10:20 AM EDT Office Visit [facility] [address] [id number] Hawk Aiken MD [address] [address] Health Maintenance Due Date Last Done Comments Diabetes: Hemoglobin A1C 02/21/2022 Diabetes: Ophthalmology Exam 02/21/2022 Diabetes: Pedal Pulse Checked 02/21/2022 Diabetes: Sensory Foot Exam 02/21/2022 Diabetes: Visual Foot Exam 02/21/2022 Influenza Vaccine (#1) 2023 , 12/16/2019, 01/14/2019, Additional history exists Pneumococcal Vaccine: 65+ Years Completed 12/10/2019, 03/03/2016 Hepatitis B Vaccine Aged Out No longe r eligible based on patient's age to complete this topic Insurance MEDICARE [facility] MEDICARE [facility] Care Teams Country Printer Relationship Specialty Start Date End Date Cristhian Durán NP [facility] [place], [place] [phone] PCP - General Nurse Practitioner 02/16/22
--- OUTSIDE RECORDS SUMMARY | 2024-03-06 11:17 | XMS_ITS | Patient Health Record ---
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 Name Role Phone TOMMY DURÁN Primary Care Provider Kris Tate Unavailable [phone] ALLERGIES No Known Allergies RESULTS Component Value Reference Range Notes Amylase Reviewed date:04/20/2023 06:26:46 PM Interpretation: Performing Lab:[address] [address] Notes/Report: Amylase 28 28-100 U/L Lipase Reviewed date:04/20/2023 06:26:39 PM Interpretation: Performing Lab:[address] [address] Notes/Report: Lipase 15 8-78 U/L US abdomen complete Reviewed date:04/24/2023 10:29:17 PM Interpretation: Performing Lab: Notes/Report: [address] [address] Ultrasound Report Signed Patient: Kris Coleman MR#: [id number] : 1940 Acct:[id number] Age/Sex: 83 / M ADM Date: 04/21/23 Loc: HO.US Attending Dr: Kris Infante MD Ordering Physician: Kris Infante Date of Service: 04/21/23 Procedure(s): US abdomen complete Accession Number(s): [id number] cc: Tommy Durán [facility]; Kris Infante EXAMINATION: US ABDOMEN COMPLETE CLINICAL INFORMATION: Epigastric pain.. COMPARISON: None available. TECHNIQUE: Real-time imaging of the abdominal viscera. FINDINGS: PANCREAS: Normal. ABDOMINAL AORTA: The proximal, mid, and distal segments are normal in caliber. INFERIOR VENA CAVA: Visualized portions are normal. LIVER: Gallbladder wall thickness is 0.2 cm The liver is normal in size. The liver contour is normal. Parenchymal echogenicity is normal. No focal hepatic lesion. There is no intrahepatic biliary duct dilatation seen. GALLBLADDER: Normal. The gallbladder is physiologically distended without evidence of stones, sludge, polyps, wall thickening or pericholecystic fluid. COMMON BILE DUCT: Normal in caliber measuring 0.4 cm in diameter. RIGHT KIDNEY: There is anechoic cyst in upper midpole measuring 2.8 x 2.5 x 2.6 cm there is a small echogenic stone in the upper pole measuring 0.3 x 0.2 x 0.2 cm. There is no caliectasis or hydronephrosis right kidney measures 9.9 seen in maximum length.. LEFT KIDNEY: There are several anechoic cysts. The largest 2 cysts, upper pole measures 2.9 x 2.3 x 2.4 cm and a septated lower pole cyst measures 4.0 x 2.0 x 3.4 cm. No renal calculi or focal parenchymal lesions. There is no hydronephrosis The kidney measures 10.3 cm in maximum dimension. SPLEEN: Normal. The spleen measures 9.0 cm in maximum dimension. FREE FLUID: None. US/US abdomen complete IMPRESSION: 1. Bilateral renal cysts. There is a small nonobstructive echogenic stone upper pole right kidney and a septated cyst lower pole left kidney. 2. The rest of the abdominal ultrasound is unremarkable. Dictated By: Dheeraj Power MD Signed By: <Electronically signed by Dheeraj Power MD in OV> 04/22/23 0828 DD/ 1315 TD/TT: Instrument Tester: LANDON Complete Blood Count Auto Di ff Reviewed date:04/24/2023 10:30:47 PM Interpretation: Performing Lab:[facility], [address] [place] [phone] Notes/Report: White Blood Count 11.1 4.8-10.8 X10*3/uL Red Blood Count 3.75 4.60-5.80 X10*6/uL Hemoglobin 10.6 14.0-18.0 g/dl Hematocrit 33.9 42.0-52.0 % Mean Corpuscular Volume 90.4 80.0-98.0 fL Mean Corpuscular Hemoglobin 28.3 27.0-33.0 pg Mean Corpuscular HGB Conc 31.3 31.0-36.0 g/dl Red Cell Distribution Width 15.0 11.0-16.0 % Platelet Count 295 160-400 X10*3/uL Mean Platelet Volume 10.5 9.4-12.4 fL Neutrophils Percent Auto 85.6 45-73 % Imm Gran Pct Auto 0.4 0.0-0.4 % Lymphocytes Percent Auto 8.7 20-40 % Monocytes Percent Auto 4.5 2-11 % Eosinophils Percent Auto 0.5 0-4 % Basophils Percent Auto 0.3 0-2 % NRBC Pct Auto 0.0 0.0-0.2 /100WBC Neutrophils Absolute Auto 9.5 2.0-8.3 x10*3/u L Imm Gran Abs Auto 0.04 0.00-0.03 X10*3/uL Lymphocytes Absolute Auto 1.0 1.2-4.9 X10*3/u L Monocytes Absolute Auto 0.5 0.1-1.2 X10*3/uL Eosinophils Absolute Auto 0.1 0.0-0.4 X10*3/u L Basophils Absolute Auto 0.0 0.0-0.2 X10*3/uL NRBC Abs Auto 0.000 0.0-0.012 X10*3/uL Liver Panel Reviewed date:04/20/2023 06:26:29 PM Interpretation: Performing Lab:[facility], [address] [place] [phone] Notes/Report: Bilirubin Total 0.5 0.0-1.0 mg/dL Bilirubin Direct 0.3 0.0-0.5 mg/dL Aspartate Amino Transferase 18 5-37 U/L Alanine Aminotransferase 9 0-40 U/L Total Protein 6.5 6.5-8.0 g/dL Albumin Level 3.4 3.5-5.0 g/dL Alkaline Phosphatase 49 39-117 U/L Electrolytes Reviewed date:06/08/2023 06:57:15 PM Interpretation: Performing Lab:[facility], [address] [place] [phone] Notes/Report: Sodium 140 135-145 mmol/L Potassium 4.2 3.3-5.1 mmol/L Chloride 108 96-108 mmol/L Carbon Dioxide 23 22-29 mmol/L Anion Gap 13 12-20 Creatinine Reviewed date:06/08/2023 06:56:59 PM Interpretation: Performing Lab:[facility], [address] [place] [phone] Notes/Report: Creatinine 1.42 0.5-1.4 mg/dL Estimated Glomerular Filt Rate 48 NOTE: For -[place] individuals, multiply the result by 1.210. Chronic Kidney Disease: Estimated GFR < 60 mL/min/1.73m2 Severe Kidney Disease: Estimated GFR < 15 mL/min/1.73m2 Complete Blood Count Auto Di ff Reviewed date:06/13/2023 06:06:26 PM Interpretation: Performing Lab:[facility], [address] [place] [phone] Notes/Report: White Blood Count 7.7 4.8-10.8 X10*3/uL Red Blood Count 3.41 4.60-5.80 X10*6/uL Hemoglobin 9.4 14.0-18.0 g/dl Hematocrit 30.8 42.0-52.0 % Mean Corpuscular Volume 90.3 80.0-98.0 fL Mean Corpuscular Hemoglobin 27.6 27.0-33.0 pg Mean Corpuscular HGB Conc 30.5 31.0-36.0 g/dl Red Cell Distribution Width 18.4 11.0-16.0 % Platelet Count 264 160-400 X10*3/uL Mean Platelet Volume 11.2 9.4-12.4 fL Neutrophils Percent Auto 79.2 45-73 % Imm Gran Pct Auto 0.4 0.0-0.4 % Lymphocytes Percent Auto 12.5 20-40 % Monocytes Percent Auto 5.8 2-11 % Eosinophils Percent Auto 1.8 0-4 % Basophils Percent Auto 0.3 0-2 % NRBC Pct Auto 0.0 0.0-0.2 /100WBC Neutrophils Absolute Auto 6.1 2.0-8.3 x10*3/u L Imm Gran Abs Auto 0.03 0.00-0.03 X10*3/uL Lymphocytes Absolute Auto 1.0 1.2-4.9 X10*3/u L Monocytes Absolute Auto 0.4 0.1-1.2 X10*3/uL Eosinophils Absolute Auto 0.1 0.0-0.4 X10*3/u L Basophils Absolute Auto 0.0 0.0-0.2 X10*3/uL NRBC Abs Auto 0.000 0.0-0.012 X10*3/uL Erythrocyte Sedimentation Ra te Reviewed date:06/08/2023 06:56:50 PM Interpretation: Performing Lab:[address] [address] Notes/Report: Erythrocyte Sedimentation Rate 30 0-15 MM/HR Patients with polycythemia and many hemoglobin abnormalities may have depressed sed rates whereas patients with anemia may have elevated sed rates. Liver Panel Reviewed date:06/08/2023 06:56:30 PM Interpretation: Performing Lab:[address] [address] Notes/Report: Bilirubin Total 0.6 0.0-1.0 mg/dL Bilirubin Direct 0.3 0.0-0.5 mg/dL Aspartate Amino Transferase 15 5-37 U/L Alanine Aminotransferase 8 0-40 U/L Total Protein 6.8 6.5-8.0 g/dL Albumin Level 3.6 3.5-5.0 g/dL Alkaline Phosphatase 39 39-117 U/L Blood Urea Nitrogen Reviewed date:06/08/2023 06:56:37 PM Interpretation: Performing Lab:[address] [address] Notes/Report: Blood Urea Nitrogen 23 9-16 mg/dL C Reactive Protein Reviewed date:06/14/2023 10:05:28 PM Interpretation: Performing Lab:[address] [address] Notes/Report: C Reactive Protein 15.47 < or = 0.50 mg/dL CT abdomen pelvis wo con Reviewed date:06/14/2023 10:03:37 PM Interpretation: Performing Lab: Notes/Report: [place] [address] [address] Scan Report Signed Patient: Kris Coleman MR#: [id number] : 1940 Acct:[id number] Age/Sex: 83 / M ADM Date: 06/13/23 Loc: HO.CT Attending Dr: Kris Infante MD Ordering Physician: Kris Infante Date of Service: 06/13/23 Procedure(s): CT abdomen pelvis wo IV con Accession Number(s): [id number] cc: Tommy Durán [facility]; Kris Infante EXAMINATION: CT ABDOMEN AND PELVIS WITHOUT CONTRAST CLINICAL INFORMATION: Epigastric pain and diverticulosis COMPARISON: CT angiogram abdomen 04/24/2023 TECHNIQUE: Multidetector volumetric imaging was performed from the superior aspect of the liver through the pubic symphysis. Sagittal and coronal reformatted images were obtained on the technologist's workstation. This CT examination was performed using dose optimization techniques as appropriate, variously including the following: *Automated exposure control *Adjustment of mA and/or kV according to patient size (this includes techniques or standardized protocols for targeted exams where dose is matched to indication/reason for exam; i.e. extremities or head) *Use of iterative reconstruction technique DLP: 396 mGy-cm FINDINGS: LUNG BASES: The visualized lung bases are unremarkable. LIVER, GALLBLADDER, AND BILIARY TREE: The liver is normal in size, shape, and attenuation. A small benign cyst is seen in the left lobe of the liver (3:10). No concerning solid focal hepatic lesion or biliary ductal dilatation is present. The gallbladder is unremarkable with no evidence of radiopaque gallstones, gallbladder wall thickening, or obvious pericholecystic inflammatory changes. PANCREAS: Unremarkable. SPLEEN: Unremarkable. ADRENAL GLANDS: Unremarkable. KIDNEYS AND URETERS: The kidneys are normal in size, shape, and attenuation. No hydronephrosis, hydroureter, or calculi seen. No perinephric stranding. Multiple bilateral benign Bosniak class I renal cysts are noted as seen previously which require no additional imaging or follow-up. No solid renal masses are seen. BLADDER: Unremarkable. GASTROINTESTINAL TRACT: A tiny hiatal hernia is seen. There is colonic diverticulosis without diverticulitis. The appendix is normal. Compared with the prior study, there's been significant improvement in the appearance of the small bowel with the multiple abscesses seen surrounding abnormal loops. At this time, some phlegmonous changes remain anteriorly with a few punctate areas of extraluminal air. There is one walled off well-defined area adjacent to a loop of small bowel measuring 3 x 2 x 2.7 cm which may represent a walled off abscess with communication with bowel lumen as this fills with contrast. No free intraperitoneal air is seen. ABDOMINAL WALL: Is a small periumbilical hernia seen containing only fat. LYMPH NODES: No retroperitoneal lymphadenopathy. VASCULAR: Marked calcific atherosclerotic changes are present in the aorta and iliofemoral vessels. There is no evidence of an abdominal aortic aneurysm. PELVIC VISCERA: The prostate and seminal vesicles are unremarkable. OSSEOUS STRUCTURES: Degenerative changes are present most marked at L4-L5. CT/CT abdomen pelvis wo IV con IMPRESSION: 1. Significant improvement in the appearance of the small bowel with previously seen multiple abscesses surrounding abnormal loops of small bowel. At this time, some phlegmonous changes remain anteriorly with a few punctate areas of extraluminal air. There is one walled off area adjacent to a loop of small bowel measuring 3 cm which may represent a walled off abscess with communication with bowel lumen as this fills with contrast. No free intraperitoneal air is seen. 2. Incidental note made of colonic diverticulosis without diverticulitis, benign hepatic and renal cysts which need no additional imaging or follow-up, small hiatal hernia and degenerative changes in the spine. Fleischner guidelines were followed. Dictated By: Scott Hernandez MD Signed By: <Electronically signed by Scott Hernandez MD in OV> 06/14/23 1839 DD/ 1156 TD/TT: Instrument Tester: CT abdomen pelvis w con Reviewed date:08/10/2023 06:00:05 PM Interpretation: Performing Lab: Notes/Report: [address] [address] [address] Scan Report Signed Patient: Kris Coleman MR#: [id number] : 1940 Acct:[id number] Age/Sex: 83 / M ADM Date: 08/04/23 Loc: HO.CT Attending Dr: Kris Infante MD Ordering Physician: Kris Infante Date of Service: 08/04/23 Procedure(s): CT abdomen pelvis w IV con Accession Number(s): [id number] cc: [facility]; Kris Infante EXAMINATION: CT ABDOMEN AND PELVIS WITH CONTRAST CLINICAL INFORMATION: Diverticulitis with perforation and abscess COMPARISON: 06/13/2023 TECHNIQUE: Multidetector volumetric images were obtained from the superior aspect of the liver through the pubic symphysis following administration 85 mL of Omnipaque 350 intravenous contrast. Sagittal and coronal reformatted images were obtained on the technologist's workstation. Oral contrast: No This CT examination was performed using dose optimization techniques as appropriate, variously including the following: *Automated exposure control *Adjustment of mA and/or kV according to patient size (this includes techniques or standardized protocols for targeted exams where dose is matched to indication/reason for exam; i.e. extremities or head) *Use of iterative reconstruction technique DLP: 333 mGy-cm FINDINGS: LUNG BASES: The visualized lung bases are unremarkable. LIVER, GALLBLADDER, AND BILIARY TREE: Several small subcentimeters areas of low density may well represent cystic. To small to adequately characterize The gallbladder is unremarkable with no evidence of radiopaque gallstones, gallbladder wall thickening, or obvious pericholecystic inflammatory changes. PANCREAS: Unremarkable. SPLEEN: Unremarkable. ADRENAL GLANDS: Once again nodular left adrenal gland. Nodular versus full right adrenal once again seen KIDNEYS AND URETERS: Cystic change is seen here. No suggestion for a solid lesion. No hydronephrosis BLADDER: Mildly irregular bladder wall GASTROINTESTINAL TRACT: There is abnormal soft tissue density/collection on image 41 midabdomen the left of midline. This areas measuring 3.4 x 2.2 x 2.7 cm. this there is a small air bubble associated with this. Therefore infectious etiology needs to be considered.. Other small air densities are seen but these could reside within bowel in the region. Differential would include a bowel diverticulum or possible other small local infectious etiologies in the vicinity. As stated I feel this is involving the small bowel. This is difficult to compare to previous exam due to normal bowel movement between exams. The same area as previously with some soft tissue stranding but again impossible to say if this is involving seen region. There is diverticular disease but no evidence for diverticulitis Hyperdensities area within the stomach could be an ingested product. This is not causing obstruction. A believe was present on previous exams. ABDOMINAL WALL: No significant hernia is appreciated. LYMPH NODES: There is no bulky adenopathy here. VASCULAR: Atherosclerotic changes are noted PELVIC VISCERA: Unremarkable. OSSEOUS STRUCTURES: Once again sclerotic changes in the femoral heads may be consistent with avascular necrosis CT/CT abdomen pelvis w IV con IMPRESSION: When compared to most recent previous exam there is some increasing change in the region of the previous abnormality within the mesentery associated with small bowel. Midabdomen and to the left of midline. As stated is difficult to say if this is the exact same area due to the mobility of small bowel but the generalized area is similar. There is a collection here with an air bubble in some small other air densities around as described. Suspicious for abscess Other findings are as described. Cannot rule out foreign body stomach in the antrum. Fleischner guidelines were followed. Dictated By: Riley Dove MD Signed By: <Electronically signed by Riley Dove MD in OV> 08/04/23 1616 DD/ 1359 TD/TT: Instrument Tester: CARLOS Ferritin Reviewed date:08/24/2023 07:44:13 PM Interpretation: Performing Lab:[facility], [address] [place] [phone] Notes/Report: Ferritin 56 20-250 ng/mL Vitamin B12 and Folate Reviewed date:08/11/2023 05:53:39 PM Interpretation: Performing Lab:[facility], [address] [place] [phone] Notes/Report: Vitamin B12 > 2000 200-900 pg/mL NORMAL 200-900 PG/ML INDETERMINATE 160-199 PG/ML DEFICIENT < 160 PG/ML Folate 8.1 > or = 4.0 ng/mL Reference Values: > or = 4.0 ng/mL < 4.0 ng/mL suggests folate deficiency Methotrexate, aminopterin and folinic acid (leucovorin) are chemotherapeutic agents whose molecular structures are similar to folate; therefore, the [employer] folate assay cannot be used for patients using these drugs. Complete Blood Count Auto Di ff Reviewed date:08/11/2023 05:10:58 PM Interpretation: Performing Lab:[facility], [address] [place] [phone] Notes/Report: White Blood Count 5.2 4.8-10.8 X10*3/uL Red Blood Count 4.03 4.60-5.80 X10*6/uL Hemoglobin 11.3 14.0-18.0 g/dl Hematocrit 36.7 42.0-52.0 % Mean Corpuscular Volume 91.1 80.0-98.0 fL Mean Corpuscular Hemoglobin 28.0 27.0-33.0 pg Mean Corpuscular HGB Conc 30.8 31.0-36.0 g/dl Red Cell Distribution Width 15.4 11.0-16.0 % Platelet Count 303 160-400 X10*3/uL Mean Platelet Volume 10.0 9.4-12.4 fL Neutrophils Percent Auto 63.5 45-73 % Imm Gran Pct Auto 0.4 0.0-0.4 % Lymphocytes Percent Auto 26.1 20-40 % Monocytes Percent Auto 7.1 2-11 % Eosinophils Percent Auto 2.3 0-4 % Basophils Percent Auto 0.6 0-2 % NRBC Pct Auto 0.0 0.0-0.2 /100WBC Neutrophils Absolute Auto 3.3 2.0-8.3 x10*3/u L Imm Gran Abs Auto 0.02 0.00-0.03 X10*3/uL Lymphocytes Absolute Auto 1.4 1.2-4.9 X10*3/u L Monocytes Absolute Auto 0.4 0.1-1.2 X10*3/uL Eosinophils Absolute Auto 0.1 0.0-0.4 X10*3/u L Basophils Absolute Auto 0.0 0.0-0.2 X10*3/uL NRBC Abs Auto 0.000 0.0-0.012 X10*3/uL Erythrocyte Sedimentation Ra te Reviewed date:08/11/2023 05:53:06 PM Interpretation: Performing Lab:[address] [address] Notes/Report: Erythrocyte Sedimentation Rate 4 0-15 MM/HR Patients with polycythemia and many hemoglobin abnormalities may have depressed sed rates whereas patients with anemia may have elevated sed rates. Liver Panel Reviewed date:08/11/2023 05:53:16 PM Interpretation: Performing Lab:[address] [place] [address] Notes/Report: Bilirubin Total 0.3 0.0-1.0 mg/dL Bilirubin Direct 0.1 0.0-0.5 mg/dL Aspartate Amino Transferase 24 5-37 U/L Alanine Aminotransferase 13 0-40 U/L Total Protein 6.8 6.5-8.0 g/dL Albumin Level 3.9 3.5-5.0 g/dL Alkaline Phosphatase 37 39-117 U/L IRON PROFILE Reviewed date:08/11/2023 05:53:25 PM Interpretation: Performing Lab:[address] [address] Notes/Report: Iron 56 45-160 mcg/dL Total Iron Binding Capacity 351 228-428 mcg/d L Percent Iron Saturation 16 15-50 % Unsaturated Iron Binding 295 C Reactive Protein Reviewed date:08/11/2023 05:53:31 PM Interpretation: Performing Lab:[address] [address] Notes/Report: C Reactive Protein < 0.10 < or = 0.50 mg/dL Prostate Specific Antigen Reviewed date:08/11/2023 05:52:59 PM Interpretation: Performing Lab:[address] [address] Notes/Report: Prostate Specific Antigen 0.83 <0.05-4.0 ng/mL PSA methodology: Keller Alinity i Chemiluminescent Microparticle Immunoassay (CMIA) CT abdomen pelvis wo con Reviewed date:12/21/2023 04:34:52 PM Interpretation: Performing Lab: Notes/Report: [address] [address] [address] Scan Report Signed Patient: Kris Coleman MR#: [id number] : 1940 Acct:[id number] Age/Sex: 83 / M ADM Date: 12/15/23 Loc: HO.CT Attending Dr: Kris Infante MD Ordering Physician: Kris Infante MD Date of Service: 12/15/23 Procedure(s): CT abdomen pelvis wo IV con Accession Number(s): [id number] cc: Tommy Durán-; Kris Infante MD EXAMINATION: CT ABDOMEN AND PELVIS WITHOUT CONTRAST CLINICAL INFORMATION: Diverticulitis. Evaluate for perforation/abscess. COMPARISON: Multiple priors, most recent CT abdomen/pelvis dated 08/04/2023. TECHNIQUE: Multidetector volumetric imaging was performed from the superior aspect of the liver through the pubic symphysis. Sagittal and coronal reformatted images were obtained on the technologist's workstation. This CT examination was performed using dose optimization techniques as appropriate, variously including the following: *Automated exposure control *Adjustment of mA and/or kV according to patient size (this includes techniques or standardized protocols for targeted exams where dose is matched to indication/reason for exam; i.e. extremities or head) *Use of iterative reconstruction technique DLP: 429 mGy-cm FINDINGS: LUNG BASES: The visualized lung bases are unremarkable. LIVER, GALLBLADDER, AND BILIARY TREE: The liver is normal in size, shape, and attenuation. Tiny hepatic cysts are unchanged. No new focal hepatic lesion or biliary ductal dilatation is present. The gallbladder is unremarkable with no evidence of radiopaque gallstones, gallbladder wall thickening, or obvious pericholecystic inflammatory changes. PANCREAS: Unremarkable. SPLEEN: Unremarkable. ADRENAL GLANDS: Unremarkable. KIDNEYS AND URETERS: The kidneys are normal in size, shape, and attenuation. No hydronephrosis, hydroureter, or calculi seen. Simple bilateral renal cysts are redemonstrated. Findings are not clinically significant and no dedicated follow-up imaging is recommended. No perinephric stranding. BLADDER: Nondistended and unremarkable. GASTROINTESTINAL TRACT: No small or large bowel obstruction. Oral contrast reaches the cecum. There are diffuse, scattered areas of circumferential, irregular bowel wall thickening throughout the small bowel. Minimal if any adjacent inflammatory change. Diffuse areas of scattered small bowel diverticulosis. No focal area of significant diverticulitis. Additionally, there are areas of colonic diverticulosis without evidence of colonic diverticulitis. No extraluminal air or evidence of perforation/abscess formation. PERITONEAL CAVITY: No intra-abdominal free air or free fluid. ABDOMINAL WALL: No significant hernia is appreciated. LYMPH NODES: No lymphadenopathy. VASCULAR: No abdominal aortic dilatation or dissection. Atherosclerotic calcifications. PELVIC VISCERA: The prostate and seminal vesicles are unremarkable. OSSEOUS STRUCTURES: No acute osseous abnormality. 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 CT/CT abdomen pelvis wo IV con IMPRESSION: 1. Diffuse, scattered areas of circumferential, irregular small bowel wall thickening. Minimal if any adjacent inflammatory change. Findings could indicate an infectious or inflammatory process. No evidence of perforation or abscess formation. 2. Chronic diverticulosis without evidence of acute diverticulitis. No small or large bowel obstruction. 3. No intra-abdominal mass, lymphadenopathy, or ascites. 4. Additional chronic findings are unchanged. Fleischner guidelines were followed. Electronically signed by: Adrian Barrera MD 12/15/2023 04:32 PM EDT RP Dictated By: Adrian Barrera MD Signed By: <Electronically signed by Adrian Barrera MD in OV> 12/15/23 1632 DD/ 1335 TD/TT: 12/15/23 1335 Instrument Tester: Complete Blood Count Auto Di ff Reviewed date:01/04/2024 06:22:26 PM Interpretation: Performing Lab:[facility], [address] [place] [phone] Notes/Report: White Blood Count 4.0 4.8-10.8 X10*3/uL Red Blood Count 3.89 4.60-5.80 X10*6/uL Hemoglobin 11.6 14.0-18.0 g/dl Hematocrit 35.4 42.0-52.0 % Mean Corpuscular Volume 91.0 80.0-98.0 fL Mean Corpuscular Hemoglobin 29.8 27.0-33.0 pg Mean Corpuscular HGB Conc 32.8 31.0-36.0 g/dl Red Cell Distribution Width 16.9 11.0-16.0 % Platelet Count 162 160-400 X10*3/uL Mean Platelet Volume 11.7 9.4-12.4 fL Neutrophils Percent Auto 57.3 45-73 % Imm Gran Pct Auto 0.3 0.0-0.4 % Lymphocytes Percent Auto 29.4 20-40 % Monocytes Percent Auto 7.0 2-11 % Eosinophils Percent Auto 5.5 0-4 % Basophils Percent Auto 0.5 0-2 % NRBC Pct Auto 0.0 0.0-0.2 /100WBC Neutrophils Absolute Auto 2.3 2.0-8.3 x10*3/u L Imm Gran Abs Auto 0.01 0.00-0.03 X10*3/uL Lymphocytes Absolute Auto 1.2 1.2-4.9 X10*3/u L Monocytes Absolute Auto 0.3 0.1-1.2 X10*3/uL Eosinophils Absolute Auto 0.2 0.0-0.4 X10*3/u L Basophils Absolute Auto 0.0 0.0-0.2 X10*3/uL NRBC Abs Auto 0.000 0.0-0.012 X10*3/uL Liver Panel Reviewed date:01/04/2024 06:22:38 PM Interpretation: Performing Lab:[address] [id number] Notes/Report: Bilirubin Total 0.5 0.0-1.0 mg/dL Bilirubin Direct 0.2 0.0-0.5 mg/dL Aspartate Amino Transferase 39 5-37 U/L Slight Hemolysis.Interpret result with caution. Alanine Aminotransferase 19 0-40 U/L Total Protein 6.2 6.5-8.0 g/dL Albumin Level 3.7 3.5-5.0 g/dL Alkaline Phosphatase 42 39-117 U/L Basic Metabolic Panel Reviewed date:01/04/2024 06:24:42 PM Interpretation: Performing Lab:[address] [id number] Notes/Report: Sodium 142 135-145 mmol/L Potassium 4.5 3.3-5.1 mmol/L Slight Hemoly sis.Interpret result with caution. Chloride 111 96-108 mmol/L Carbon Dioxide 23 22-29 mmol/L Anion Gap 13 12-20 Blood Urea Nitrogen 22 9-16 mg/dL Creatinine 1.30 0.5-1.4 mg/dL Estimated Glomerular Filt Rate 53 Chronic Kidney Disease: Estimated GFR < 60 mL/min/1.73m2 Severe Kidney Disease: Estimated GFR < 15 mL/min/1.73m2 Glucose Random 138 60-115 mg/dL Calcium 9.3 8.4-10.2 mg/dL IRON PROFILE Reviewed date:01/04/2024 12:39:25 PM Interpretation: Performing Lab:[address] [address] Notes/Report: Iron 83 45-160 mcg/dL Slight Hemolys is.Interpret result with caution. Total Iron Binding Capacity 356 228-428 mcg/d L Percent Iron Saturation 23 15-50 % Unsaturated Iron Binding 273 Ferritin Reviewed date:01/04/2024 06:24:51 PM Interpretation: Performing Lab:[facility], [address] [place] [phone] Notes/Report: Ferritin 53 20-250 ng/mL Free T4 (Free Thyroxine) Reviewed date:01/04/2024 06:24:58 PM Interpretation: Performing Lab:[facility], [address] [place] [phone] Notes/Report: Free T4 (Free Thyroxine) 1.17 0.71-1.85 ng/dL TSH reflex Free T4 Reviewed date:01/04/2024 12:39:16 PM Interpretation: Performing Lab:[facility], [address] [place] [phone] Notes/Report: TSH reflex Free T4 4.01 0.32-4.0 uIU/mL REASON FOR REFERRAL No Information MEDICATIONS Medication SIG (Take, Route, Frequency, Duration) Notes Start Date End Date Status Omeprazole 40 MG TAKE 1 CAPSULE BY [facility] EVERY MORNING for 30 Active Magnesium 200 MG 1 tablet with a meal Orally Twice a day Active Nasal [place] 0.05 % 4 sprays (2 sprays i n each nostril) Nasally Twice a day for 3 day(s) Not-Taking Citrucel 500 MG as directed Orally a s directed Active Famotidine 40 MG 1 tablet at bedtime as needed Oral Once a day Not-Takin g metFORMIN HCl ER 500 MG 1 tablet with ev ening meal Oral Once a day Active Ondansetron HCl 4 MG 1 tablet Oral Once a day Active Atorvastatin Calcium 40 MG 1 tablet Oral Once a day Active dilTIAZem HCl ER Coated Beads 240 MG 1 tablet Oral Once a day Active Fenofibrate 160 MG 1 tablet Oral Once a day Active traZODone HCl 50 MG as directed Oral Onc e a day Active Pioglitazone HCl 30 MG 1 tablet Oral Onc e a day Active Aspirin 81 81 MG 1 tablet Orally Once a day for 30 day(s) Active Famotidine 40 MG 1 Orally Twice a day for 30 days 04/20/2023 Active Vitamin D3 Active Readi-Cat 2 2 % 1 450ml bottle [address] before the CT and then 1 450ml bottle [address] Orally 2 bottles as directed for 1 days 11/19/2023 Active IMMUNIZATIONS Vaccine Route Administration Date Status Comme nts Influenza Unknown 12/14/2020 Administered Influenza Unknown 10/14/2021 Administered SOCIAL HISTORY Tobacco Use: Social History Observation Description Date Details (start date - stop date) Former Smoker NA - NA Sex Assigned At : Social History Observation Description Sex Assigned At Unknown Tobacco Use/Smoking Question Answer Notes Patient is a former smoker How long has it been since you last smoked? > 10 years Alcohol Screen Question Answer Notes Did you have a drink containing alcohol in the p ast year? No Points 0 Interpretation Negative PROBLEMS Problem Type ICD Code Onset Dates Problem Status W/U Status Risk SNOMED Code Notes Problem Epigastric abdominal pain (R10.13) Active confirmed Epigastric pain (01721919) Problem Epigastric pain (R10.13) Active confirmed Epigastric pain (84378727) Problem Diverticulitis of small intestine with perforation and abscess without bleeding (K57.00) Active confirmed Perforation and abscess of small intestine co-occurrent and due to diverticulitis (disorder) (503384221) Problem Diverticulitis of small intestine without perforation or abscess without bleeding (K57.12) Active confirmed Diverticul itis of small intestine (55717186) Problem Nausea (R11.0) Active confirmed Nausea (704949482) Problem Anorexia (R63.0) Active confirmed Anore rick (31972819) Problem Early satiety (R68.81) Active confirmed Early satiety (685245051) Problem Anemia (D64.9) Active confirmed Anemia (238800449) Problem Gastritis (K29.70) Active confirmed Gastritis (0239102) Problem Chronic fatigue (R53.82) Active confirmed Chronic fatigue syndrome (32060763) Problem GERD (gastroesophageal reflux disease) (K21.9) Active confirmed Gastroesophagea l reflux disease (099961639) Problem Decreased appetite (R63.0) Active confirmed Loss of carmela etite (28570283) VITAL SIGNS Temperature 96.8 degrees Fahrenheit 04/20/2023 Blood pressure diastolic 00 mm Hg 10/24/2023 Height 67 in 10/24/2023 Blood pressure systolic 00 mm Hg 10/24/2023 Weight 157 lbs 10/24/2023 BMI 24.59 kg/m2 10/24/2023 Encounters Encounter Location Date Provider Diagnosis [facility] [address] [place] [phone] 04/20/2023 Kris Infante Nausea R11.0 and Epigastric pain R10.13 [facility] [address] [place] [phone] 06/20/2023 Kris Infante Anemia D64.9 and Diverticulitis of small intestine with perforation and abscess without bleeding K57.00 [facility] [address] [place] [phone] 06/08/2023 Kris Infante Epigastric abdominal pain R10.13 and Diverticulitis of small intestine with perforation and abscess without bleeding K57.00 [facility] [address] [place] [phone] 10/24/2023 Kris Infante Diverticulitis of sm all intestine with perforation and abscess without bleeding K57.00 ; Anemia D64.9 and Chronic fatigue R53.82 [facility] [address] [place] [phone] 04/19/2023 Kris Infante [facility] [address] [place] [phone] 04/20/2023 Kris Infante [facility] [address] [place] [phone] 05/02/2023 Kris Infante GERD (gastroesophage al reflux disease) K21.9 [facility] [address] [place] [phone] 05/10/2023 Kris Infante [facility] [address] [place] [phone] 06/06/2023 Kris Infante [facility] [address] [place] [phone] 06/08/2023 Kris Infante [facility] [address] [place] [phone] 06/08/2023 Kris Infante [facility] [address] [place] [phone] 06/20/2023 Kris Infante [facility] [address] [place] [address] 06/26/2023 Kris Infante Diverticulitis of sm all intestine with perforation and abscess without bleeding K57.00 [facility] [address] [place] [phone] 08/01/2023 Kris Infante [facility] [address] [place] [phone] 08/10/2023 Kris Infante Diverticulitis of sm all intestine with perforation and abscess without bleeding K57.00 and Anemia D64.9 [facility] [address] [place] [phone] 11/16/2023 Kris Infante [facility] [address] [place] [phone] 11/20/2023 Kris Infante [facility] [address] [place] [phone] 12/05/2023 Kris Infante [facility] [address] [place] [phone] 12/21/2023 Kris Infante [facility] [address] [place] [phone] 01/04/2024 Kris Infante ASSESSMENTS Encounter Date Diagnosis Assessment Notes Treatment Notes Treatment Clinical Notes 04/20/2023 Epigastric pain (ICD-10 - R10.13) 04/20/2023 Nausea (ICD-10 - R11.0) 06/20/2023 Diverticulitis of small intestine with perforation and abscess without bleeding (ICD-10 - K57.00) 06/20/2023 Anemia (ICD-10 - D64.9) 06/08/2023 Epigastric abdominal pain (ICD-10 - R10.13) 06/08/2023 Diverticulitis of small intestine with perforation and abscess without bleeding (ICD-10 - K57.00) 10/24/2023 Diverticulitis of small intestine with perforation and abscess without bleeding (ICD-10 - K57.00) Try stopping the Citrucel and see how the BM's do without it. You can start taking an over the counter Iron supplement 3 or 4 times a week for the anemia. Speak with Dr. Munguia before using any protein powder. Use Ensure or Boost instead for now. 10/24/2023 Anemia (ICD-10 - D64.9) 05/02/2023 GERD (gastroesophageal reflux disease) (ICD-10 - K21.9) 06/26/2023 Diverticulitis of small intestine with perforation and abscess without bleeding (ICD-10 - K57.00) 08/10/2023 Diverticulitis of small intestine with perforation and abscess without bleeding (ICD-10 - K57.00) 10/24/2023 Chronic fatigue (ICD-10 - R53.82) 08/10/2023 Anemia (ICD-10 - D64.9) PLAN OF TREATMENT Pending Test Test Name Order Date CHEM 7 PROFILE 06/26/2023 CHEM 7 PROFILE 10/24/2023 BUN 06/08/2023 BUN 02/08/2022 CREATININE 02/08/2022 LIVER PROFILE 04/20/2023 LIVER PROFILE 08/10/2023 LIVER PROFILE 06/26/2023 LIVER PROFILE 10/24/2023 LIVER PROFILE 06/08/2023 IRON + IBC (FE) 06/20/2023 IRON + IBC (FE) 08/10/2023 IRON + IBC (FE) 10/24/2023 CRP 06/26/2023 CRP 06/08/2023 CRP 08/10/2023 VITAMIN B12 AND FOLATE 06/20/2023 CBC w DIFF 06/26/2023 CBC w DIFF 06/20/2023 CBC w DIFF 10/24/2023 CBC w DIFF 06/08/2023 CBC w DIFF 08/10/2023 CBC w DIFF 04/20/2023 SED RATE (ESR) 06/26/2023 SED RATE (ESR) 06/08/2023 SED RATE (ESR) 08/10/2023 CT ABD & PELVIS WITH CONTRAST 02/08/2022 CT ABD & PELVIS WITH CONTRAST 06/26/2023 CT ABD & PELVIS WITH PO CONT ONLY 2023 CT ABD & PELVIS WITH PO CONT ONLY 2023 NUC GASTRIC ANTRUM EMPTYING 12/18/2021 Ferritin 06/20/2023 Ferritin 10/24/2023 TSH reflex Free T4 10/24/2023 Future Test Test Name Order Date UPPER GI ENDOSCOPY 11/17/2021 Next Appt Details Provider Name:Kris Infante , 04/23/2024 10:50:00 AM, [address] [place] [address], [address], [place], [address], Insurance Providers Payer Name Payer Address Payer Phone Subscriber Number Group Number Insured Name Patient Relationship to Insured Coverage Start Date Coverage End Date MEDICARE OF [place] [address] [place] [address] [phone] [id number] KRIS BAKER Self - patient is the insured [employer] CLAIMS [address] [place] [address] [id number] KRIS BAKER Self - patient is the insured MEDICAL (GENERAL) HISTORY Medical History History ICD Code Kidney stones COPD Prostate cancer NIDDM Hypertension Denies ID,CVA,Lung disease,renal disease Negative colonoscopy > [address] Efren HAYDEN 12/2019--not hospitalized EGD in 12/2021 with only a s mall hiatal hernia. There was no sign of ulcer disease, neoplasm, nor H.pylori on the biopsies. Normal Nuclear medicine gastric emptying study 12/[address] of the abdomen and pelvis in February of 2022. 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 Soler, at [facility]. He felt this presented more of a chronic issue as opposed to an acute problem. Inflammation and small absce sses in the region of the small bowel seen on the CT scan during the workup for the abdominal pain in April of 2023. This was treated with IV and subsequent oral antibiotics at [facility]. There was the finding of multiple small bowel diverticuli and was felt that the abdominal pain and inflammation was as a result of diverticulitis of the small bowel Followup CT scan of the abdo men on June 13, 2023 revealed much improvement in regard to the previous small bowel inflammation and abscesses. Diverticulitis of small inte latesha with perforation and abscess without bleeding K57.00 Surgical History Surgery Date(Month/Year) Left carotid Bilateral LE vascular procedures
== END 2024-03-06 11:31 | disposition home or self-care (01) ==
PROVIDERS: PCP Nurse Practitioner Family; Visit Provider Nurse Practitioner Family
DX: E55.9 Vitamin D deficiency, unspecified (principal); E11.9 Type 2 diabetes mellitus without complications; E53.8 Deficiency of other specified B group vitamins; R68.89 Other general symptoms and signs; Z13.9 Encounter for screening, unspecified

== ENCOUNTER → 2024-03-06 10:16 | Outpatient (BNVA) | payer MEDICARE, SELFPAY | PROVIDERS: PCP Nurse Practitioner Family; Visit Provider Nurse Practitioner Family | DX: E53.8 Deficiency of other specified B group vitamins (principal); E55.9 Vitamin D deficiency, unspecified; E11.9 Type 2 diabetes mellitus without complications; R68.89 Other general symptoms and signs | CPT/HCPCS: 83036; 96372; 99212; J3420 ==

== ENCOUNTER 2024-04-09 13:56 | Outpatient (AMB) | payer MEDICARE, SELFPAY ==
[2024-04-09 14:08] VITALS: BP 128/70; PULSE 66; TEMP 36.6; O2SAT 96; BMI 27.8
--- NOTE | 2024-04-09 14:08 | A.OFFPC_ITS ---
Vital Signs 04/09/24 14:08 Height 5 ft 5 in Weight 167 lb BMI 27.8 BP 128/70 Blood Pressure Location Lt brachial Position Sitting Pulse 66 Pulse Source Pulse Oximeter Temp 97.8 F Temp Source Oral Pulse Oximetry (%) 96 Intake Visit Reasons: 1 months f/up Accompanied by: Self / Same As Patient Allergies No Known Allergies [No Known Allergies*] Allergy (Verified 04/09/24 14:08) Medication List - Last Reconciled 04/09/24 by RY Morales-MARTY aspirin 81 mg PO DAILY atorvastatin 40 mg PO BEDTIME blood sugar diagnostic (Shoette Ultra Test strips) Use to check blood sugar daily blood sugar diagnostic test BS once a day cholecalciferol (vitamin D3) 25 mcg PO DAILY cyanocobalamin (vitamin B-12) intramuscularly QMONTHLY; Q monthly 30 days diltiazem HCl CD 240 mg PO DAILY fenofibrate 160 mg PO DAILY 90 days fluticasone propionate 50 mcg/actuation 1 spray intranasal DAILY magnesium 200 mg PO BID metformin ER 500 mg PO BID 90 days methylcellulose (laxative) (Citrucel) 500 mg PO DAILY PRN ondansetron HCl 4 mg PO DAILY 90 days pantoprazole 20 mg PO DAILY pioglitazone 30 mg PO DAILY trazodone 50 mg PO DAILY Tobacco use date assessed: 04/09/24 Fall risk assessment: No Falls in past year Last assessed Fall Risk: 04/09/24 Dental Screening Dental Screen Date: 03/06/24 HPI 1 months f/up HPI Details Chief Complaint Evaluation and management of Vitamin B12 deficiency. History of Present Illness The patient is an 84-year-old male presenting with a Vitamin B12 deficiency. The patient was supposed to undergo laboratory testing recently; however, these tests were not conducted. As a result, it has been planned for the patient to undergo lab tests early next week, specifically focusing on Vitamin B12 levels. The patient has not reported any increase in energy levels, although he describes a fair appetite and appears healthy with no acute distress. There is no mention of prior interventions for his B12 deficiency during the conversation. In terms of symptomatology related to this deficiency, the patient reports no associated symptoms like changes in energy levels, though he denies experiencing chest pain, headache, blurred vision, or shortness of breath. Blood pressure readings remain low, which has been identified as a concurrent issue. Social History - The patient reports a fair appetite, i ndicating a healthy nutritional intake. Health Maintenance Review of Systems - General: Denies any increase in energy . - Cardiovascular: Denies chest pain. - Respiratory: Denies shortness of breat h. - Neurological: Denies headache, blurred vision. Physical Exam General: Cooperative, healthy appearing, comfortable, no acute distress and well developed Orientation: Patient oriented x3 Limitations: No limitations Head: Normal to inspection Ears: Hearing grossly normal bilaterally Nose: Normal external nose present Face and sinus: Normal facial exam Eyes: Appearance normal, both eyes and all related structures Neck: Normal visual inspection and Yes full ROM Respiratory: Normal respiratory effort and able to speak in complete sentences. Very faint crackles at the right lower base Cardiovascular: Regular rate and rhythm. Normal S1 and S2 GI: Normal to inspection. Soft to palpation and nontender Neuro: Patient oriented x3 Extremities: Normal to inspection, no edema noted Results - Labs: Vitamin B12 testing planned for early next week. Plan - Schedule laboratory tests early next w la posta to evaluate Vitamin levels and include additional labs. - Monitor and manage the patient?s low b lood pressure concurrently with Vitamin deficiency treatment. - Evaluation of faint crackles in the solange ng bases to ensure no underlying pulmonary issues. - Continue monitoring the patient?s lack of symptoms, such as chest pain, shortness of breath, headache, and blurred vision, which are currently denied by the patient. Discussion Notes During our discussion, I informed the patient about the need to complete his laboratory tests as soon as possible to assess current Vitamin B12 levels comprehensively. We also reviewed the absence of symptoms, which includes chest pain, shortness of breath, headache, and blurred vision, and agreed that routine monitoring for these is essential given his Vitamin B12 deficiency and hypotension. I outlined that the lab results would guide his further management, and he is to notify us if new symptoms arise. We both agreed on the importance of maintaining vigilance regarding his blood pressure status and overall health. Patient Instructions - Ensure to attend the lab appointment e abril next week for Vitamin B12 and additional blood tests. - Monitor for any new symptoms, especial ly chest pain, shortness of breath, headache, or blurred vision, and report them immediately. - Maintain a healthy diet and continue t o track nutritional intake to support overall wellness. - Follow any new health guidelines or ch anges as directed following lab results. [facility] Medical History Superior mesenteric artery syndrome Elevated serum creatinine Encounter for annual wellness visit (AWV) in Medicare patient Screening PSA (prostate specific antigen) Plantar callus CKD (chronic kidney disease) stage 3, GFR 30-59 ml/min Acquired hammertoes of both feet Type 2 diabetes mellitus without complication, without long-term current use of insulin Eczema Hearing loss Prostate CA HTN (hypertension) PVD (peripheral vascular disease) Carotid artery stenosis COPD (chronic obstructive pulmonary disease) Dyslipidemia Surgical History History of left-sided carotid endarterectomy Status post aortography with runoff History of atherectomy History of angioplasty H/O colonoscopy with polypectomy History of endarterectomy History of cataract surgery History of cataract surgery Family History Father Medical history non-contributory Mother Medical history non-contributory Son No problems noted. Daughter No problems noted. Daughter No problems noted. Social History Housing: House Alcohol intake: current Patient Tobacco Use Status: Former Tobacco user Years Smoked: quit 25 years ago e-Cigarette/Vaping Use: Never Used Second Hand Smoke Exposure: No service: Yes Current occupational status: retired Cognitive needs: No Hearing needs: No Vision needs: No Questionnaire PHQ-9 Over the last 2 weeks, how often have you been bothered by any of the following problems? 1. Little interest or pleasure in doing things: not at all 2. Feeling down, depressed, or hopeless: not at all 3. Trouble falling or staying asleep, or sleeping too much: not at all 4. Feeling tired or having little energy: not at all 5. Poor appetite or overeating: not at all 6. Feeling bad about yourself - or that you are a failure or have let yourself or your family down: not at all 7. Trouble concentrating on things, such as reading the newspaper or watching television: not at all 8. Moving or speaking so slowly that other people could have noticed. Or the opposite - being so fidgety or restless that you have been moving around a lot more than usual: not at all 9. Thoughts that you would be better off or of hurting yourself in some way: not at all Total score: 0 Depression Screening Interpretation: Negative Depression Screening Done: Yes 47792 - PHQ-9 Billing: Yes Source: Developed by Drs. Larry Ohara, Luci Anglin, Charlie Lees and colleagues, with an educational deanna from [employer]. Thrive Questionnaire Date Thrive assessed: 03/06/24 AUDIT C Alcohol Use Questionnaire (AUDIT-C) 1. How often do you have a drink containing alcohol?: 2-4 times a month 2. How many drinks containing alcohol do you have on a typical day when you are drinking?: 1 or 2 3. How often do you have six or more drinks on one occasion?: Never Total Score: 2 Score Reviewed/Action Taken: Yes ELISABET-7 AMB Questionnaire ELISABET-7 Date ELISABET - 7 assessed: 04/09/24 Feeling nervous, anxious, or on edge: 0 = Not at all Not being able to stop or control worryin = Not at all Worrying too much about different things: 0 = Not at all Trouble relaxin = Not at all Being so restless that it is hard to sit still: 0 = Not at all Becoming easily annoyed or irritable: 0 = Not at all Feeling afraid as if something awful might happen: 0 = Not at all Total ELISABET-7 score (0-4 normal; 5-9 mild; 10-14 moderate; 15-21 severe): 0 Source: Developed by Drs. Larry Ohara, Luci Anglin, Charlie Lees and colleagues, with an educational deanna from [employer]. ELISABET-7 Assessment Billing ELISABET-7 Assessment Tool: ELISABET-7 Assessment 79295 Physical exam (Primary Care) Vital Signs: Last Vital Signs Temp 97.8 F 04/09/24 14:08 Pulse 66 04/09/24 14:08 BP 128/70 04/09/24 14:08 Pulse Ox 96 04/09/24 14:08 BMI result Body Mass Index 27.8 Tobacco/Smoking Status: Tobacco use Status Tobacco use date assessed 04/09/24 04/09/24 14:11 Patient Tobacco Use Status Former Tobacco user 04/09/24 14:11 e-Cigarette/Vaping Use Never Used 04/09/24 14:11 PHQ-9: PHQ-9 Score PHQ-9: Total score 0 04/09/24 14:26 Depression Screening Interpretation: Negative Thrive Assessment: Date of Thrive Assessment Date Thrive assessed 03/06/24 04/09/24 14:11 Office Meds cyanocobalamin (vitamin B-12) 1,000 mcg/mL injection solution Performing Provider: KLAUDIA Morales Performing Location: [facility] Administered by: Cici Van RN on 04/09/24 14:25 Dose Route Admin Location Dispensed Lot Number Expiration Date [facility] Applications Support Specialist 1,000 mcg IM Left deltoid 1 mL [id number] 06/13/25 0201-0404-97 [facility] Comments: Pt supplied Coding Level of Care Code Est Pt Level 3 (42232) Diagnoses HTN (hypertension) I10 B12 deficiency E53.8 Vitamin D deficiency E55.9 Additional Codes ELISABET-7 Assessment Billing - ELISABET-7 Assessment Tool: ELISABET-7 Assessment 75634 ([id number]) PHQ-9 - 02002 - PHQ-9 Billing: Yes ([id number]) Assessment & Plan Assessment & Plan (1) HTN (hypertension): Code(s): I10 - Essential (primary) hypertension Category: Medical (2) B12 deficiency: Code(s): E53.8 - Deficiency of other specified B group vitamins Category: Medical Plan: . (3) Vitamin D deficiency: Code(s): E55.9 - Vitamin D deficiency, unspecified Category: Medical (4) B12 deficiency: Code(s): E53.8 - Deficiency of other specified B group vitamins Category: Medical Plan: . Plan . Orders: Orders AMB Vitamin B12 Injection Patient Supplied Today E53.8 - Deficiency of other specified B group vitamins Complete Blood Count Auto Diff Today E11.9 - Type 2 diabetes mellitus without complications, I10 - Essential (primary) hypertension TSH reflex Free T4 Today E11.9 - Type 2 diabetes mellitus without complications, I10 - Essential (primary) hypertension UA CC w/rflx Micro + Cult Today E11.9 - Type 2 diabetes mellitus without complications, I10 - Essential (primary) hypertension Lipid Panel Today E11.9 - Type 2 diabetes mellitus without complications, I10 - Essential (primary) hypertension Complete Blood Count Auto Diff 1 Day E53.8 - Deficiency of other specified B group vitamins, I10 - Essential (primary) hypertension Comprehensive Soso. Panel Fast 1 Day E53.8 - Deficiency of other specified B group vitamins, I10 - Essential (primary) hypertension Lipid Panel 1 Day E53.8 - Deficiency of other specified B group vitamins, I10 - Essential (primary) hypertension TSH reflex Free T4 1 Day E53.8 - Deficiency of other specified B group jaskaran mins, I10 - Essential (primary) hypertension Microalbumin, Random (w Creat) Today E11.9 - Type 2 diabetes mellitus without complications, E53.8 - Deficiency of other specified B group vitamins, I10 - Essential (primary) hypertension Comprehensive Soso. Panel Fast Today E11.9 - Type 2 diabetes mellitus without complications, I10 - Essential (primary) hypertension UA CC w/rflx Micro + Cult 1 Day E53.8 - Deficiency of other specified B group vitamins, I10 - Essential (primary) hypertension Vitamin B12 and Folate Today E53.8 - Deficiency of other specified B group vitamins, I10 - Essential (primary) hypertension Methylmalonic Acid Today E53.8 - Deficiency of other specified B group vitamins, I10 - Essential (primary) hypertension Homocysteine Today E53.8 - Deficiency of other specified B group vitamins, I10 - Essential (primary) hypertension Vitamin D 25-OH Total Today E53.8 - Deficiency of other specified B group vitamins, E55.9 - Vitamin D deficiency, unspecified, I10 - Essential (primary) hypertension Medications: Refilled cyanocobalamin (vitamin B-12) intramuscularly QMONTHLY; Q monthly 30 days 6 mL 2RF
--- OUTSIDE RECORDS SUMMARY | 2024-04-09 17:27 | XMS_ITS | Patient Health Record ---
Author Organization [facility] Address [address] [place] [address] Care Team Providers Care [employer] Name Role Phone Cristhian Garcia Primary Care Provider Unav ailable Black, Estela Unavailable [phone] Allergies No Known Allergies Reason For Referral No Information Medications Medication SIG (Take, Route, Frequency, Duration) Notes Start Date End Date Status glyBURIDE Active Extra-Depth Diabetic Shoes with 3 Pair Custom heat-molded multi-density innersoles . for 1 year . Dx:hammertoes and pre-ulcerative callous for . 07/25/2013 Not-Taking Pantoprazole Sodium 20 MG Oral for 90 Active Extra Depth Orthopedic Shoes (1 Pair) with Customized Heat Molded Multidensity Innersoles (3 Pair) as directed Dx: NIDDM/Polyneuropathy (E11.42), Hammertoe Foot Deformity (M20.41,M20.42), Preulcerative Skin Lesion(s) (L85.1 07/17/2017 Not-Taking Chantix 0.5 MG 1 tablet Orally Once a day for 30 day(s) Not-Taking Vitamin D3 50 MCG (1999 UT) TAKE 1 CAPSULE BY MOUTH DAILY Oral for 90 Active Atorvastatin Calcium 40 MG Oral for 90 Active Ondansetron HCl 4 MG Oral for 90 Active Irbesartan 150 MG Oral for 90 Active Gemfibrozil 600 MG 1 tablet Orally Twic e a day for 30 day(s) Active Extra Depth Orthopedic Shoes (1 Pair) with Customized Heat Molded Multidensity Innersoles (3 Pair) as directed Dx: NIDDM/Polyneuropathy (E11.42), Hammertoe Foot Deformity (M20.41,M20.42), Preulcerative Skin Lesion(s) (L85.1 07/18/2016 Not-Taking Actos 15 MG 1 tablet Orally Once a day for 30 day(s) Active Extra-Depth Diabetic Shoes with 3 Pair Custom heat-molded multi-density innersoles . for 1 year . Dx:hammertoes and pre-ulcerative callous for . Not-Taking Extra Depth Orthopedic Shoes (1 Pair) with Customized Heat Molded Multidensity Innersoles (3 Pair) as directed Dx: NIDDM/Polyneuropathy (E11.42), Hammertoe Foot Deformity (M20.41,M20.42), Preulcerative Skin Lesion(s) (L85.1 07/20/2015 Not-Taking Metformin & Diet Manage Prod 500 MG as directed Orally Act janis OneTouch Ultra - USE TO CHECK BLOOD SUGAR EVERY DAY In Vitro for 90 E119,Unavaila ble Active Fluticasone Propionate 50 MCG/ACT Nasal for 60 Active Fenofibrate 160 MG Oral for 90 Active Extra Depth Orthopedic Shoes (1 Pair) with Customized Heat Molded Multidensity Innersoles (3 Pair) as directed Dx: NIDDM/Polyneuropathy (E11.42), Hammertoe Foot Deformity (M20.41,M20.42), Preulcerative Skin Lesion(s) (L85.1 Not-Taking dilTIAZem HCl 30 MG 1 tablet before meal s and at bedtime Orally Four times a day for 30 day(s) Not-Taking Trazodone & Diet Manage Prod 50 MG as directed Orally Not- Taking Diabetic Insoles Not -Taking Ammonium Lactate 12 % 1 application Externally to affected areas of dry skin to feet except for between the toes Twice a day for 30 days Active dilTIAZem HCl ER Coated Beads 240 MG Oral for 90 Active Pioglitazone HCl 30 MG Oral for 90 Active Magnesium 200 MG TAKE 1 TABLET BY MOUTH TWICE DAILY Oral for 5 Active traZODone HCl 50 MG Oral for 90 Active Immunizations Vaccine Route Administration Date Status Comme nts Influenza Unknown 12/15/2015 Administered Influenza Unknown 03/17/2017 Administered Influenza Unknown 10/14/2017 Administered Influenza Unknown 01/14/2019 Administered Influenza Unknown 12/16/2019 Administered Influenza Unknown 10/14/2020 Administered Influenza Unknown 12/14/2022 Administered Social History Tobacco Use: Social History Observation Description Date Details (start date - stop date) Never Smoker NA - NA Alcohol Screen Question Answer Notes Did you have a drink contain ing alcohol in the past year? Yes How often did you have a dri nk containing alcohol in the past year? Monthly or less (1 point) Points 1 Interpretation Negative Tobacco use other than smoking: Question Answer Notes Are you an other tobacco user? No Tobacco Control (Standard) Question Answer Notes Tobacco use: Nonsmoker Problems Problem Type SNOMED Code ICD Code Onset Dates Problem Status W/U Status Risk Notes Problem Acquired hammer toe of right foot (1220718910294331 ) Other hammer toe(s) (acquired), right foot (M20.41) Active confirmed Problem Acquired hammer toe of left foot (5051141520722241 ) Other hammer toe(s) (acquired), left foot (M20.42) Active confirmed Problem Polyneuropathy due to type 2 diabetes mellitus (412442070) Type 2 diabetes mellitus with diabetic polyneuropathy (E11.42) Active confirmed Vital Signs Blood pressure diastolic 70 mm Hg 03/07/2024 Height 5 ft 6 in in 03/07/2024 Blood pressure systolic 120 mm Hg 03/07/2024 Weight 140 lbs 03/07/2024 BMI 22.59 kg/m2 03/07/2024 Procedures Procedure Date Ordered Date Performed Result Body Sit e 89119-OWPN SKIN LESIONS, 2 TO 4 08/31/2023 N/A 50627-ZQBF NAIL(S) 08/31/2023 N/A 25043-RMHE SKIN LESIONS, 2 TO 4 03/07/2024 N/A 03458-SAPV NAIL(S) 03/07/2024 N/A Encounters Encounter Location Date Provider Diagnosis [facility] [address] [address] 08/31/2023 Estela Black Type 2 diabetes mellitus with diabetic polyneuropathy E11.42 [facility] [address] [address] 03/07/2024 Estela Black Type 2 diabetes mellitus with diabetic polyneuropathy E11.42 and Xerosis of skin L85.3 Assessments Encounter Date Diagnosis (ICD Code) Assessment Notes Treatment Notes Treatment Clinical Notes Section Notes 08/31/2023 Type 2 diabetes mellitus with diabetic polyneuropathy (ICD-10 - E11.42) 03/07/2024 Type 2 diabetes mellitus with diabetic polyneuropathy (ICD-10 - E11.42) 03/07/2024 Xerosis of skin (ICD-10 - L85.3) Plan Of Treatment Pending Test Test Name Order Date 80481-EBWD SKIN LESIONS, OVER 4 12/07/19 11 53925-WTRS SKIN LESIONS, OVER 4 06/26/19 13 25370-HUQI SKIN LESIONS, OVER 4 01/01/20 13 17941-LVXV SKIN LESIONS, OVER 4 07/26/19 14 92172-BIDZ SKIN LESIONS, OVER 4 01/16/20 14 94023-ITLH SKIN LESIONS, OVER 4 07/17/19 15 10571-AOZI SKIN LESIONS, 2 TO 4 01/15/20 15 56891-ZQDL SKIN LESIONS, 2 TO 4 12/22/19 12 23556-ZJXZ SKIN LESIONS, 2 TO 4 06/20/19 12 90917-RFMN SKIN LESIONS, 2 TO 4 07/20/19 16 33344-RFAH SKIN LESIONS, 2 TO 4 01/18/20 16 31924-BMIZ SKIN LESIONS, 2 TO 4 07/19/19 17 73480-DWZM SKIN LESIONS, 2 TO 4 01/24/20 17 18636-ACMU SKIN LESIONS, 2 TO 4 01/16/20 18 32643-ICIG SKIN LESIONS, 2 TO 4 08/21/19 19 56244-KVXO SKIN LESIONS, 2 TO 4 02/25/19 20 64572-GCVL SKIN LESIONS, 2 TO 4 08/08/19 20 16492-ARWH SKIN LESIONS, 2 TO 4 02/03/20 20 27159-DCQE SKIN LESIONS, 2 TO 4 07/21/19 21 73832-NQRG SKIN LESIONS, 2 TO 4 02/22/19 22 54063-JXVQ SKIN LESIONS, 2 TO 4 08/31/19 22 26255-BIWN SKIN LESIONS, 2 TO 4 02/24/19 23 19597-UIVA SKIN LESIONS, 2 TO 4 08/26/19 23 70017-IPKZ SKIN LESIONS, 2 TO 4 03/02/19 24 49504-BOKT SKIN LESIONS, 2 TO 4 08/31/19 24 52661-ALYL SKIN LESIONS, 2 TO 4 03/07/19 25 62269-THNW NAIL(S) 03/07/2024 56357-ZTHN NAIL(S) 08/31/2023 43714-OPXL NAIL(S) 03/02/2023 34534-UQRC NAIL(S) 08/25/2022 90657-TXWL NAIL(S) 02/24/2022 37727-QCGA NAIL(S) 08/30/2021 35645-IQJG NAIL(S) 02/22/2021 04874-KMIF NAIL(S) 07/20/2020 57826-YRMF NAIL(S) 02/03/2020 18375-ALQP NAIL(S) 08/08/2019 70267-DZZQ NAIL(S) 02/25/2019 08316-CRFO NAIL(S) 08/20/2018 16823-DIHM NAIL(S) 01/15/2018 71340-LYDJ NAIL(S) 07/18/2016 29774-EJVF NAIL(S) 01/18/2016 29473-ZQVO NAIL(S) 07/20/2015 78417-ZTKK NAIL(S) 12/22/2011 00615-QRJR NAIL(S) 12/06/2010 48018-DMCO NAIL(S) 06/20/2011 78281-NGDG NAIL(S) 06/25/2012 66326-YGPF NAIL(S) 12/31/2012 57046-EVFA NAIL(S) 01/14/2015 93465-WPHS NAIL(S) 07/16/2014 82330-WFAP NAIL(S) 01/15/2014 63065-JZWO NAIL(S) 07/25/2013 V4835-EXJMAOLN DYSTROPHIC NAILS ANY # Next Appt Details Provider Name:Estela Bell , 09/05/2024 09:00:00 AM, [address] [place], [address], Insurance Providers Payer Name Payer Address Payer Phone Subscriber Number Group Number Insured Name Patient Relationship to Insured Coverage Start Date Coverage End Date Medicare [facility] [address] [place] [address] [id number] Larry Pichardo Self - patient is the insured [employer] [address] [place] [address] [id number] Larry Pichardo Self - patient is the insured Medical (General) History Medical History History ICD Code mumps measles hypertension diabetic chicken pox cancer Cholesterol Surgical History Surgery Date(Month/Year) opened artery 08/08/2018 cataract surgery
--- OUTSIDE RECORDS SUMMARY | 2024-04-09 17:27 | XMS_ITS ---
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
--- OUTSIDE RECORDS SUMMARY | 2024-04-09 17:27 | XMS_ITS ---
Author Organization [facility] Address [address] [place] [address] Care Team Providers Care Wig Stylist Name Role Phone TOMMY CHAPIN Primary Care Provider Kris Tate [phone] Encounters Encounter Location Date Provider Diagnosis [facility] [address] [place] [address] 12/05/2023 Kris Infante PLAN OF TREATMENT Next Appt Details Provider Name:Kris Infante , 04/23/2024 10:50:00 AM, [address], [address], [place], [address],
--- OUTSIDE RECORDS SUMMARY | 2024-04-09 17:27 | XMS_ITS | Clinical Summary ---
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
--- OUTSIDE RECORDS SUMMARY | 2024-04-09 17:27 | XMS_ITS ---
Author Organization [facility] Address [address] [place] [address] Care Team Providers Care Associate Software Development Engineer Name Role Phone Cristhian Garcia Primary Care Provider Unav ailable Black, Estela Unavailable [phone] Allergies No Known Allergies REASON FOR VISIT At Risk Footcare, Skin problem(s) Medications Medication SIG (Take, Route, Frequency, Duration) Notes Start Date End Date Status Extra-Depth Diabetic Shoes with 3 Pair Custom heat-molded multi-density innersoles . for 1 year . Dx:hammertoes and pre-ulcerative callous for . 07/25/2013 Not-Taking Ammonium Lactate 12 % 1 application Externally to affected areas of dry skin to feet except for between the toes Twice a day for 30 days Active Extra Depth Orthopedic Shoes (1 Pair) with Customized Heat Molded Multidensity Innersoles (3 Pair) as directed Dx: NIDDM/Polyneuropathy (E11.42), Hammertoe Foot Deformity (M20.41,M20.42), Preulcerative Skin Lesion(s) (L85.1 07/17/2017 Not-Taking Chantix 0.5 MG 1 tablet Orally Once a day for 30 day(s) Not-Taking Extra Depth Orthopedic Shoes (1 Pair) with Customized Heat Molded Multidensity Innersoles (3 Pair) as directed Dx: NIDDM/Polyneuropathy (E11.42), Hammertoe Foot Deformity (M20.41,M20.42), Preulcerative Skin Lesion(s) (L85.1 07/18/2016 Not-Taking Extra Depth Orthopedic Shoes (1 Pair) with Customized Heat Molded Multidensity Innersoles (3 Pair) as directed Dx: NIDDM/Polyneuropathy (E11.42), Hammertoe Foot Deformity (M20.41,M20.42), Preulcerative Skin Lesion(s) (L85.1 Not-Taking dilTIAZem HCl 30 MG 1 tablet before meal s and at bedtime Orally Four times a day for 30 day(s) Not-Taking Diabetic Insoles Not -Taking Extra-Depth Diabetic Shoes with 3 Pair Custom heat-molded multi-density innersoles . for 1 year . Dx:hammertoes and pre-ulcerative callous for . Not-Taking Extra Depth Orthopedic Shoes (1 Pair) with Customized Heat Molded Multidensity Innersoles (3 Pair) as directed Dx: NIDDM/Polyneuropathy (E11.42), Hammertoe Foot Deformity (M20.41,M20.42), Preulcerative Skin Lesion(s) (L85.1 07/20/2015 Not-Taking OneTouch Ultra - USE TO CHECK BLOOD SUGAR EVERY DAY In Vitro for 90 E119,Unavaila ble Active Fluticasone Propionate 50 MCG/ACT Nasal for 60 Active Fenofibrate 160 MG Oral for 90 Active Trazodone & Diet Manage Prod 50 MG as directed Orally Not- Taking Pioglitazone HCl 30 MG Oral for 90 Active Vitamin D3 50 MCG (2000 UT) TAKE 1 CAPSULE BY MOUTH DAILY Oral for 90 Active Atorvastatin Calcium 40 MG Oral for 90 Active dilTIAZem HCl ER Coated Beads 240 MG Oral for 90 Active Magnesium 200 MG TAKE 1 TABLET BY MOUTH TWICE DAILY Oral for 5 Active traZODone HCl 50 MG Oral for 90 Active glyBURIDE Active Pantoprazole Sodium 20 MG Oral for 90 Active Ondansetron HCl 4 MG Oral for 90 Active Irbesartan 150 MG Oral for 90 Active Metformin & Diet Manage Prod 500 MG as directed Orally Act janis Gemfibrozil 600 MG 1 tablet Orally Twic e a day for 30 day(s) Active Actos 15 MG 1 tablet Orally Once a day for 30 day(s) Active Social History Tobacco Use: Social History Observation Description Date Details (start date - stop date) Never Smoker NA - NA Tobacco use other than smoking: Question Answer Notes Are you an other tobacco user? No Tobacco Control (Standard) Question Answer Notes Tobacco use: Nonsmoker Vital Signs Height 5 ft 6 in in 03/07/2024 Weight 140 lbs 03/07/2024 BMI 22.59 kg/m2 03/07/2024 Blood pressure systolic 120 mm Hg 03/07/19 25 Blood pressure diastolic 70 mm Hg 025 Procedures Procedure Date Ordered Date Performed Result Body Sit e 74665-[facility] SKIN LESIONS, 2 TO 4 03/07/2024 N/A 38748-[facility] NAIL(S) 03/07/2024 N/A Encounters Encounter Location Date Provider Diagnosis [facility] [address] [place] [address] 03/07/2024 Estela Bell Type 2 diabetes mellitus with diabetic polyneuropathy E11.42 and Xerosis of skin L85.3 Assessments Encounter Date Diagnosis (ICD Code) Assessment Notes Treatment Notes Treatment Clinical Notes Section Notes 03/07/2024 Type 2 diabetes mellitus with diabetic polyneuropathy (ICD-10 - E11.42) 03/07/2024 Xerosis of skin (ICD-10 - L85.3) Plan Of Treatment Medication Medication Name Sig Start Date Stop Date Notes Ammonium Lactate 12 % 1 application Exte rnally to affected areas of dry skin to feet except for between the toes Twice a day for 30 days Pending Test Test Name Order Date 39455-[facility]ORK SKIN LESIONS, 2 TO 4 03/07/19 74602-[facility] NAIL(S) 03/07/2024 Next Appt Details Follow Up: prn, Reason: Provider Name:Estela Bell , 09/05/2024 09:00:00 AM, [address] [place] [address], [phone], Procedure Notes * Category Sub-Category Detail Notes Keratoma Treatment Parring or Cutting o f Benign Hyperkeratotic Lesion(s) (-56) 2-4 Lesions - Due to the at risk nature of the patients medical condition as documented in the exam findings, performance of this keratoderma treatment is medically necessary as its management by an unskilled/untrained nonprofessional would put this patients foot and overall health at risk. Therefore, the benign hyperkeratotic lesions, ( 4 ) in total, locations as stated and described in the exam ( TA, T5,Medial plantar, Heel, B/L , ), were pared, and/or cut utilizing a sterile 15 blade, tissue nippers, and/or power dremel instrumentation by the physician of record - 20647 Nail Reduction Nail Reduction (-19) Trimming o f all non-dystrophic nails - Due to the at risk nature of the patients medical condition as documented in the exam findings, performance of this nail treatment is medically necessary as its management by an unskilled/untrained nonprofessional would put this patients foot and overall health at risk. Therefore, the non-dystrophic nails, in locations as stated and described in the exam ( T1, T2, T3, T4, T6, T7, T8, T9, ), were debrided by the physician of record to reduce/remove overall nail length and girth, by manual and electrical means with use of a nail nipper and/or dremel, to more viable healthy nail plate or bed tissue - 11849 Progress Notes * Larry COLEMAN LDOB:[birth year] (83 yo M)Acc No.[id number]:03/07/2024 Progress Note Patient:?Larry COLEMAN Provider:?Estela Bell DPM :1940???Age:83 Y???Sex:Male Antolin e:03/07/2024 Address:[address] [place], [place] [id number] Pcp:TUSHAR Jiang Subjective: * Chief Complaints: * ???At Risk FootcareSkin prob lazarus(s) * HPI: ???At Risk footcare:?Pt States Last PCP Visit:?Date?03/06/2024 ???Skin problems:?Nature:?dryness , scaling.?Location:?B/L .?Duration:?several days.?Course:?worse.? * ROS:?General/Constitutional:?Nausea?denies.?Vomiting?denies.?Hunger Thirst?denies.?Loss appetite?denies.?Chills?denies.?Fatigue?denies.?Fever?denies.?Night Sweats?denies.?Unexplained weight loss?denies.?Ophthalmologic:?Blurred vision?denies.?Red eye?denies.?HEENTM:?Dentures?denies.?Dizziness?denies.?Glasses/contacts?denies.?Retinopathy?den ies.?Blurred/double vision?denies.?TMJ?denies.?Discharge/drainage?denies.?Implants?denies.?Hard of hearing denies.?Difficulty chewing/swallowing/speaking?denies.?Nose bleeds?denies.?Sore mouth?denies.?Swollen glands?denies.?Respiratory:?On O xygen?denies.?Pneumonia/pleurisy?denies.?Bronchitis?denies.?Emphysema?denies.?Co ughing?denies.?Cough blood?denies.?Shortness of breath?denies.?Wheezing?denies.?Cardiovascular:?Pacemaker?denies.?MVP?denies.?WPW?denies.?CHF?denies.?Heart attack?denies.?Septal defect?denies.?Rapid beat?denies.?Chest pain ?denies.?Atrial Fib.?denies.?Murmur/Palpitations?denies.?Gastrointestinal:?Hemorrhoids?denies.?Stomach/Abdominal pain?denies.?Dark blood stool?denies.?Irritable bowel ?denies.?Constipation?denies.?Diarrhea?denies.?Vomiting?denies.?Hematology:?Swelling?denies.?Bruising?denies.?Bleeding problem?denies.?Genitourinary:?Blood urine?denies.?Frequent/Painfu/urination/bladder control?denies.?Kidney stones?denies.?Infection (UTI)?denies.?Nephropathy?denies.?Musculoskeletal:?Hammertoes?admits.?Bunions?denies.?Scoliosis/kyphosis?denies.?Muscle cramps / walking?denies.?Generalized aches and pains?denies.?Weakness?denies.?Integ.:?Stafford?denies.?Scars?denies.?Corns/calluses?denies.?Ingrown nails?denies.?Painful nails?denies.?Rashes?denies.?Neurologic:?Difficulty sleeping?denies.?Bipolar?denies.?Brain disorder?denies.?Balance t rouble?denies.?Confusion?denies.?Fainting/blackouts?denies.?Headache?denies.?Solo mors?denies.? * Medical History:? * Surgical History:?opened art benton 08/08/2018cataract surgery * Hospitalization/Major Diagno stic Procedure:?Denies Past Hospitalization * Family History:?Mother: dece ased, hypertension, diabetes.?Father: , hypertension, stroke.?Spouse: alive.? * Social History:?Tobacco Use:?Tobacco use other than smoking?Are you an other tobacco user??No ?Tobacco Control (Standard)?Tobacco use:?Nonsmoker ???Miscellaneous:?Caffeine: yes, frequency:, 1-2 cups per day. ?Children: yes, 3. ?Exercise: yes, gym. ?Marital status: . 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 * Medications:?TakingGemfibroz il 600 MG Tablet 1 tablet Orally Twice a day Actos 15 MG Tablet 1 tablet Orally Once a day Metformin & Diet Manage Prod 500 MG Miscellaneous as directed Orally glyBURIDE Pantoprazole Sodium 20 MG Tablet Delayed Release Oral Ondansetron HCl 4 MG Tablet Oral Irbesartan 150 MG Tablet Oral Vitamin D3 50 MCG (2000 UT) Capsule TAKE 1 CAPSULE BY MOUTH DAILY Oral Atorvastatin Calcium 40 MG Tablet Oral Magnesium 200 MG Tablet TAKE 1 TABLET BY MOUTH TWICE DAILY Oral traZODone HCl 50 MG Tablet Oral dilTIAZem HCl ER Coated Beads 240 MG Capsule Extended Release 24 Hour Oral Pioglitazone HCl 30 MG Tablet Oral Fenofibrate 160 MG Tablet Oral OneTouch Ultra - Strip USE TO CHECK BLOOD SUGAR EVERY DAY In Vitro , Notes to Pharmacist: E119,UnavailableFluticasone Propionate 50 MCG/ACT Suspension Nasal Taking Gemfibrozil 600 MG Tablet 1 tablet Orally Twice a day Taking Actos 15 MG Tablet 1 tablet Orally Once a day Taking Metformin & Diet Manage Prod 500 MG Miscellaneous as directed Orally Taking glyBURIDE Taking Pantoprazole Sodium 20 MG Tablet Delayed Release Oral Taking Ondansetron HCl 4 MG Tablet Oral Taking Irbesartan 150 MG Tablet Oral Taking Vitamin D3 50 MCG (1999) Capsule TAKE 1 CAPSULE BY MOUTH DAILY Oral Taking Atorvastatin Calcium 40 MG Tablet Oral Taking Magnesium 200 MG Tablet TAKE 1 TABLET BY MOUTH TWICE DAILY Oral Taking traZODone HCl 50 MG Tablet Oral Taking dilTIAZem HCl ER Coated Beads 240 MG Capsule Extended Release 24 Hour Oral Taking Pioglitazone HCl 30 MG Tablet Oral Taking Fenofibrate 160 MG Tablet Oral Taking OneTouch Ultra - Strip USE TO CHECK BLOOD SUGAR EVERY DAY In Vitro , Notes to Pharmacist: E119,UnavailableTaking Fluticasone Propionate 50 MCG/ACT Suspension Nasal Not-Taking/PRNTrazodone & Diet Manage Prod 50 MG Miscellaneous as directed Orally Diabetic Insoles Extra Depth Orthopedic Shoes (1 Pair) with Customized Heat Molded Multidensity Innersoles (3 Pair) as directed Dx: NIDDM/Polyneuropathy (E11.42), Hammertoe Foot Deformity (M20.41,M20.42), Preulcerative Skin Lesion(s) (L85.1 dilTIAZem HCl 30 MG Tablet 1 tablet before meals and at bedtime Orally Four times a day Extra-Depth Diabetic Shoes with 3 Pair Custom heat-molded multi-density innersoles . . for 1 year . Dx:hammertoes and pre-ulcerative callous Extra Depth Orthopedic Shoes (1 Pair) with Customized Heat Molded Multidensity Innersoles (3 Pair) as directed Dx: NIDDM/Polyneuropathy (E11.42), Hammertoe Foot Deformity (M20.41,M20.42), Preulcerative Skin Lesion(s) (L85.1 Extra Depth Orthopedic Shoes (1 Pair) with Customized Heat Molded Multidensity Innersoles (3 Pair) as directed Dx: NIDDM/Polyneuropathy (E11.42), Hammertoe Foot Deformity (M20.41,M20.42), Preulcerative Skin Lesion(s) (L85.1 Extra Depth Orthopedic Shoes (1 Pair) with Customized Heat Molded Multidensity Innersoles (3 Pair) as directed Dx: NIDDM/Polyneuropathy (E11.42), Hammertoe Foot Deformity (M20.41,M20.42), Preulcerative Skin Lesion(s) (L85.1 Chantix 0.5 MG Tablet 1 tablet Orally Once a day Extra-Depth Diabetic Shoes with 3 Pair Custom heat-molded multi-density innersoles . . for 1 year . Dx:hammertoes and pre-ulcerative callous Medication List reviewed and reconciled with the patientNot-Taking/PRN Trazodone & Diet Manage Prod 50 MG Miscellaneous as directed Orally Not-Taking/PRN Diabetic Insoles Not-Taking/PRN Extra Depth Orthopedic Shoes (1 Pair) with Customized Heat Molded Multidensity Innersoles (3 Pair) as directed Dx: NIDDM/Polyneuropathy (E11.42), Hammertoe Foot Deformity (M20.41,M20.42), Preulcerative Skin Lesion(s) (L85.1 Not-Taking/PRN dilTIAZem HCl 30 MG Tablet 1 tablet before meals and at bedtime Orally Four times a day Not- Taking/PRN Extra-Depth Diabetic Shoes with 3 Pair Custom heat-molded multi-density innersoles . . for 1 year . Dx:hammertoes and pre-ulcerative callous Not-Taking/PRN Extra Depth Orthopedic Shoes (1 Pair) with Customized Heat Molded Multidensity Innersoles (3 Pair) as directed Dx: NIDDM/Polyneuropathy (E11.42), Hammertoe Foot Deformity (M20.41,M20.42), Preulcerative Skin Lesion(s) (L85.1 Not-Taking/PRN Extra Depth Orthopedic Shoes (1 Pair) with Customized Heat Molded Multidensity Innersoles (3 Pair) as directed Dx: NIDDM/Polyneuropathy (E11.42), Hammertoe Foot Deformity (M20.41,M20.42), Preulcerative Skin Lesion(s) (L85.1 Not-Taking/PRN Extra Depth Orthopedic Shoes (1 Pair) with Customized Heat Molded Multidensity Innersoles (3 Pair) as directed Dx: NIDDM/Polyneuropathy (E11.42), Hammertoe Foot Deformity (M20.41,M20.42), Preulcerative Skin Lesion(s) (L85.1 Not-Taking/PRN Chantix 0.5 MG Tablet 1 tablet Orally Once a day Not-Taking/PRN Extra-Depth Diabetic Shoes with 3 Pair Custom heat-molded multi-density innersoles . . for 1 year . Dx:hammertoes and pre-ulcerative callous Medication List reviewed and reconciled with the patient * Allergies:?N.K.D.A.yes[Aller gies Verified] Objective: * Vitals:?Ht: 5 ft 6 in, Wt: 1 40, BMI: 22.59, Shoe size: 7.5, BP: 120/70 mm Hg, BS: not taken, Wt-k.5 kg. * Examination: ???CQM Exceptions:: ?Hemoglobin A1c not performed?Ophthalmology Referral: ?DIABETES EYE EXAM?General Examination: ?GENERAL APPEARANCE:?Reveals a pleasant, alert, well nourished, well- developed, well hydrated individual, who demonstrates proper attention to hygiene/body habitus, and is in no acute distress, Pt serves as own historian for office visit today.?ORIENTED:?person, place, and time.?Footwear Evaluation?Neurological: ?SENSORY:?exam demonstrates. reduced vibration lower extremity, reduced sharp/dull pin prick discrimination , reduced light touch sensation, , 5.07 monofilament test performed at plantar aspects of 5 varied sites per foot, shows sensation, absent, B/L, , at Forefoot, B/L, Pt relates cont.anesthesia, pins and needles sensation b/l feet.?Vascular: ?DP PULSES (B):?2/4, B/L.?PT PULSES (B):?2/4, B/L.?Nails: ?NAILS are:?elongated,overgrown, nondystrophic, T1, T2, T3, T4,? T6, T7, T8, T9.?Dermatologic: ?SKIN FINDINGS:?Skin exam reveals keratotic lesion(s) located at, TA, T5,Medial plantar, Heel, B/L , , Skin shows sign(s) of, dryness, scaling, in a stocking fashion, no fissure(s) present, B/L.?Orthopedic: ?FOOTWEAR:?fair condition.? Assessment: * Assessment: 1.?Type 2 diabetes mellitus with diabetic polyneuropathy - E11.42 (Primary)???2.?Xerosis of skin - L85.3???Specify :Acute problem, Uncomplicated (3),Rx Management (4)??? Plan: * Treatment: 2.?Xerosis of skin? Start Ammonium Lactate Cream, 12 %, 1 application, Externally to affected areas of dry skin to feet except for between the toes, Twice a day, 30 days, 280, Refills 3.?? * Procedures:?Keratoma Treatment:?Parring or Cutting of Benign Hyperkeratotic Lesion(s)?(-56) 2-4 Lesions - Due to the at risk nature of the patients medical condition as documented in the exam findings, performance of this keratoderma treatment is medically necessary as its management by an unskilled/untrained nonprofessional would put this patients foot and overall health at risk. Therefore, the benign hyperkeratotic lesions, ( 4 ) in total, locations as stated and described in the exam ( TA, T5,Medial plantar, Heel, B/L , ), were pared, and/or cut utilizing a sterile 15 blade, tissue nippers, and/or power dremel instrumentation by the physician of record - 28375.?Nail Reduction:?Nail Reduction?(-19) Trimming of all non-dystrophic nails - Due to the at risk nature of the patients medical condition as documented in the exam findings, performance of this nail treatment is medically necessary as its management by an unskilled/untrained nonprofessional would put this patients foot and overall health at risk. Therefore, the non-dystrophic nails, in locations as stated and described in the exam ( T1, T2, T3, T4, T6, T7, T8, T9, ), were debrided by the physician of record to reduce/remove overall nail length and girth, by manual and electrical means with use of a nail nipper and/or dremel, to more viable healthy nail plate or bed tissue - 92376.? * Procedure Codes:?39099 TRIM SKIN LESIONS, 2 TO 4, Modifiers: XS 17216 TRIM NAIL(S), Modifiers: XS * Preventive Medicine:? ??Counseling:?Discussion:?-13: Office or other outpatient visit for the evaluation and management of an established patient, which required a medically appropriate history and/or examination and LOW level of DECISION MAKING for: 1 STABLE ACUTE UNCOMPLICATED PROBLEM, 2 OR MORE MINOR PROBLEMS, OR 1 STABLE CHRONIC PROBLEM, THAT POSE(S) A LOW RISK FOR MORBIDITY/MORTALITY. The visit on the day of the encounter encompassed interpreting the data and educating the patient as to the nature of their condition, treatment options available according to their individual PMH, meds, allergies, and overall health/living conditions, as well as any potential risks or complications that may occur from a failure to adhere to, and participate in, the recommended course of therapy. The discussion included a complete verbal, and/or written explanation of the examination results, any x-rays taken, the proposed diagnosis, and outline of the treatment plan. A schedule for future care needs was also explained. The patient verbalized an understanding of the instructions at this time and agreed to be an active participant in their treatment. If the patient should think of any questions or concerns after the visit, I have encouraged the patient to call the office.?Xerosis:?The patient was counseled on the diagnosis, potential etiologies, and treatment options for their skin condition. We discussed the risks and benefits of each option from performing no treatment, to utilizing OTC topical skin creams/ointments, to utilizing prescription topical creams/ointments, to utilizing customized compounded topical medications and use of nocturnal occlusion with any/all previously detailed therapies. We discussed the advantages and disadvantages of each possible treatment and importance for adherence to all the recommended therapies for optimum success and avoid potential complications such as open sore/infection/possible hospitalization. We discussed the potential effectiveness of each topical preparation as well as each ones possible side effects and/or patient medication interactions. Patient questions re: use, dosage, successful outcomes, and application consistency were reviewed and the patient verbalized that all answers were clearly understood. The patient has decided to apply Rx skin creams to their feet save the interspaces while paying special attention to the heels. Such was sent to their pharmacy at the time of visit.? ??Screening/Special Tests:?Fall Risk?Screening:?No falls in the past year ?FALLS: Screening for Future Fall Risk?Have you had any falls with injury in the past year??No * Follow Up:?prn * Images: * Sign off status: Completed true * Provider:?Estela Bell DPM Date:?2024 Generated for Hector martinez/Eliud/Mariam on:?04/09/2024 05:27 PM EST History and Physical Notes * HPI (History of Present Illness) Category Sub-Category Detail Notes Category Not es Skin problems Nature: dryness , scaling Location: B/L Duration: several days Course: worse At Risk footcare Pt States Last PCP Visit: Date: 5 Examination Category Sub-Category Detail Notes Category Not es Neurological SENSORY: exam demonstrate s. reduced vibration lower extremity, reduced sharp/dull pin prick discrimination , reduced light touch sensation, , 5.07 monofilament test performed at plantar aspects of 5 varied sites per foot, shows sensation, absent, B/L, , at Forefoot, B/L, Pt relates cont.anesthesia, pins and needles sensation b/l feet Dermatologic SKIN FINDINGS: Skin exam reveal s keratotic lesion(s) located at, TA, T5,Medial plantar, Heel, B/L , , Skin shows sign(s) of, dryness, scaling, in a stocking fashion, no fissure(s) present, B/L Orthopedic FOOTWEAR: fair condition General Examination GENERAL APPEARANCE: Reveals a pleasant, alert, well nourished, well-developed, well hydrated individual, who demonstrates proper attention to hygiene/body habitus, and is in no acute distress, Pt serves as own historian for office visit today ORIENTED: person, place, and t tony Footwear Evaluation Footwear Evaluation performe d:: Yes Ophthalmology Referral DIABETES EYE EXAM Procedure Perform ed:: Yes ?Date of Exam Performed: 02/13/2023 Findings of Diabetic Eye Exam:: no retin opathy Vascular DP PULSES (B): 2/4, B/L PT PULSES (B): 2/4, B/L TEMPERTURE GRADIENT (C): EDEMA (C): PIGMENTATION: Nails NAILS are: elongated,overgr own, nondystrophic, T1, T2, T3, T4, T6, T7, T8, T9 CQM Exceptions: Hemoglobin A1c not performed Reason:: No r lis specified
--- OUTSIDE RECORDS SUMMARY | 2024-04-09 17:27 | XMS_ITS ---
Author Organization [facility] Address [address] [place] [address] Care Team Providers Care Isotope Technician Name Role Phone Cristhian Garcia Primary Care Provider Unav ailable Black, Estela Unavailable [phone] Allergies No Known Allergies REASON FOR VISIT At Risk Footcare Medications Medication SIG (Take, Route, Frequency, Duration) Notes Start Date End Date Status Extra Depth Orthopedic Shoes (1 Pair) with Customized Heat Molded Multidensity Innersoles (3 Pair) as directed Dx: NIDDM/Polyneuropathy (E11.42), Hammertoe Foot Deformity (M20.41,M20.42), Preulcerative Skin Lesion(s) (L85.1 07/20/2015 Not-Taking Extra Depth Orthopedic Shoes (1 Pair) with Customized Heat Molded Multidensity Innersoles (3 Pair) as directed Dx: NIDDM/Polyneuropathy (E11.42), Hammertoe Foot Deformity (M20.41,M20.42), Preulcerative Skin Lesion(s) (L85.1 07/17/2017 Not-Taking Extra Depth Orthopedic Shoes (1 Pair) with Customized Heat Molded Multidensity Innersoles (3 Pair) as directed Dx: NIDDM/Polyneuropathy (E11.42), Hammertoe Foot Deformity (M20.41,M20.42), Preulcerative Skin Lesion(s) (L85.1 07/18/2016 Not-Taking Extra-Depth Diabetic Shoes with 3 Pair Custom heat-molded multi-density innersoles . for 1 year . Dx:hammertoes and pre-ulcerative callous for . 07/25/2013 Not-Taking Chantix 0.5 MG 1 tablet Orally Once a day for 30 day(s) Not-Taking Extra Depth Orthopedic Shoes (1 Pair) with Customized Heat Molded Multidensity Innersoles (3 Pair) as directed Dx: NIDDM/Polyneuropathy (E11.42), Hammertoe Foot Deformity (M20.41,M20.42), Preulcerative Skin Lesion(s) (L85.1 Not-Taking Diabetic Insoles Not -Taking dilTIAZem HCl 30 MG 1 tablet before meal s and at bedtime Orally Four times a day for 30 day(s) Not-Taking Extra-Depth Diabetic Shoes with 3 Pair Custom heat-molded multi-density innersoles . for 1 year . Dx:hammertoes and pre-ulcerative callous for . Not-Taking Trazodone & Diet Manage Prod 50 MG as directed Orally Not- Taking Pioglitazone HCl 30 MG Oral for 90 Active dilTIAZem HCl ER Coated Beads 240 MG Oral for 90 Active OneTouch Ultra - USE TO CHECK BLOOD SUGAR EVERY DAY In Vitro for 90 E119,Unavaila ble Active Fenofibrate 160 MG Oral for 90 Active Fluticasone Propionate 50 MCG/ACT Nasal for 60 Active Vitamin D3 50 MCG (2000 UT) TAKE 1 CAPSULE BY MOUTH DAILY Oral for 90 Active Irbesartan 150 MG Oral for 90 Active Magnesium 200 MG TAKE 1 TABLET BY MOUTH TWICE DAILY Oral for 5 Active Atorvastatin Calcium 40 MG Oral for 90 Active traZODone HCl 50 MG Oral for 90 Active Actos 15 MG 1 tablet Orally Once a day for 30 day(s) Active glyBURIDE Active Metformin & Diet Manage Prod 500 MG as directed Orally Act janis Ondansetron HCl 4 MG Oral for 90 Active Pantoprazole Sodium 20 MG Oral for 90 Active Gemfibrozil 600 MG 1 tablet Orally Twic e a day for 30 day(s) Active Social History Tobacco Use: Social History Observation Description Date Details (start date - stop date) Former Smoker NA - NA Tobacco Use/Smoking Question Answer Notes Are you a: former smoker When did you stop smoking? 2011 Additional Findings: Tobacco Non-User Current no n-smoker Alcohol Screen Question Answer Notes Did you have a drink contain ing alcohol in the past year? Yes How often did you have a dri nk containing alcohol in the past year? Monthly or less (1 point) Points 1 Interpretation Negative Tobacco use other than smoking: Question Answer Notes Are you an other tobacco user? No Vital Signs Height 5 ft 6 in in 03/02/2023 Weight 178 lbs 03/02/2023 BMI 28.73 kg/m2 03/02/2023 Procedures Procedure Date Ordered Date Performed Result Body Sit e 46938-VHLA SKIN LESIONS, 2 TO 4 03/02/2023 N/A 20147-JBGT NAIL(S) 03/02/2023 N/A Encounters Encounter Location Date Provider Diagnosis [facility] [address] [address] 03/02/2023 Estela Bell Type 2 diabetes mellitus with diabetic polyneuropathy E11.42 Assessments Encounter Date Diagnosis (ICD Code) Assessment Notes Treatment Notes Treatment Clinical Notes Section Notes 03/02/2023 Type 2 diabetes mellitus with diabetic polyneuropathy (ICD-10 - E11.42) 03/02/2023 Other Plan Of Treatment Pending Test Test Name Order Date 75810-JDEN SKIN LESIONS, 2 TO 4 03/02/19 [id number] NAIL(S) 03/02/2023 Next Appt Details Follow Up: prn, Reason: Provider Name:Estela Bell , 09/05/2024 09:00:00 AM, [address] [place] [address], [id number], Procedure Notes * Category Sub-Category Detail Notes Keratoma Treatment Parring or Cutting o f Benign Hyperkeratotic Lesion(s) 39759 (2-4 Lesions) - The Benign hyperkeratotic lesions, as described above were pared, and/or cut utilizing a sterile #15 blade, tissue nippers, and/or dremel Nail Reduction Nail Reduction Trimming of non- dystrophic nails performed to reduce/remove overall nail length and girth, by manual and electrical means with use of a nail nipper and/or dremel, to more viable healthy nail plate or bed tissue 6-10 (65683) Progress Notes * Larry COLEMAN LDOB:[birth year] (82 yo M)Acc No.[id number]:03/02/2023 Progress Note Patient:?Larry Coleman Provider:?Estela Bell DPM :1940???Age:82 Y???Sex:Male Antolin e:03/02/2023 Address:[address] [place], [place] [id number] Pcp:TUSHAR Jiang Subjective: * Chief Complaints: * ???At Risk Footcare * HPI: ???At Risk footcare:?Pt States Last PCP Visit:?Date?02/17/2023 * Medical History:? * Surgical History:?opened art [place] 08/08/2018cataract surgery * Hospitalization/Major Diagno stic Procedure:?Denies Past Hospitalization * Family History:?Mother: dece ased, hypertension, diabetes.?Father: , hypertension, stroke.?Spouse: alive.? * Social History:?Tobacco Use:?Tobacco Use/Smoking?Are you a:?former smoker ?When did you stop smoking??2011 ?Additional Findings: Tobacco Non-User?Current non-smoker ?Tobacco use other than smoking?Are you an other tobacco user??No ???Drugs/Alcohol:?Drugs?Have you used drugs other than those for medical reasons in the past 12 months??No ?Alcohol Screen?Did you have a drink containing alcohol in the past year??Yes ?How often did you have a drink containing alcohol in the past year??Monthly or less (1 point) ?Points?1 ?Interpretation?Negative ???Miscellaneous:?Caffeine: yes, frequency:, 1-2 cups per day. ?Children: yes, 3. ?Exercise: yes, gym. ?Marital status: . 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 * Medications:?TakingGemfibroz il 600 MG Tablet 1 tablet Orally Twice a dayActos 15 MG Tablet 1 tablet Orally Once a dayMetformin & Diet Manage Prod 500 MG Miscellaneous as directed Orally glyBURIDE Pantoprazole Sodium 20 MG Tablet Delayed Release Oral Ondansetron HCl 4 MG Tablet Oral Irbesartan 150 MG Tablet Oral Vitamin D3 50 MCG (1999 UT) Capsule TAKE 1 CAPSULE BY MOUTH [...] BLOOD SUGAR EVERY DAY In Vitro , Notes: E119,UnavailableFluticasone Propionate 50 MCG/ACT Suspension Nasal Taking Gemfibrozil 600 MG Tablet 1 tablet Orally Twice a dayTaking Actos 15 MG Tablet 1 tablet Orally Once a dayTaking Metformin & Diet Manage Prod 500 MG Miscellaneous as directed Orally Taking glyBURIDE Taking Pantoprazole Sodium 20 MG Tablet Delayed Release Oral Taking Ondansetron HCl 4 MG Tablet Oral Taking Irbesartan 150 MG Tablet Oral Taking Vitamin D3 50 MCG (1999 UT) Capsule TAKE 1 CAPSULE BY MOUTH [...] BLOOD SUGAR EVERY DAY In Vitro , Notes: E119,UnavailableTaking Fluticasone Propionate 50 MCG/ACT Suspension Nasal Not-Taking/PRNTrazodone & Diet Manage Prod 50 MG Miscellaneous as directed Orally Diabetic Insoles Extra Depth Orthopedic Shoes (1 Pair) with Customized Heat Molded Multidensity Innersoles (3 Pair) as directed Dx: NIDDM/Polyneuropathy (E11.42), Hammertoe Foot Deformity (M20.41,M20.42), Preulcerative Skin Lesion(s) (L85.1dilTIAZem HCl 30 MG Tablet 1 tablet before meals and at bedtime Orally Four times a dayExtra-Depth Diabetic Shoes with 3 Pair Custom heat-molded multi-density innersoles . . for 1 year . Dx:hammertoes and pre-ulcerative callousExtra Depth Orthopedic Shoes (1 Pair) with Customized Heat Molded Multidensity Innersoles (3 Pair) as directed Dx: NIDDM/Polyneuropathy (E11.42), Hammertoe Foot Deformity (M20.41,M20.42), Preulcerative Skin Lesion(s) (L85.1Extra Depth Orthopedic Shoes (1 Pair) with Customized Heat Molded Multidensity Innersoles (3 Pair) as directed Dx: NIDDM/Polyneuropathy (E11.42), Hammertoe Foot Deformity (M20.41,M20.42), Preulcerative Skin Lesion(s) (L85.1Extra Depth Orthopedic Shoes (1 Pair) with Customized Heat Molded Multidensity Innersoles (3 Pair) as directed Dx: NIDDM/Polyneuropathy (E11.42), Hammertoe Foot Deformity (M20.41,M20.42), Preulcerative Skin Lesion(s) (L85.1Chantix 0.5 MG Tablet 1 tablet Orally Once a dayExtra-Depth Diabetic Shoes with 3 Pair Custom heat-molded multi-density innersoles . . for 1 year . Dx:hammertoes and pre-ulcerative callousMedication List reviewed and reconciled with the patientNot-Taking/PRN Trazodone & Diet Manage Prod 50 MG Miscellaneous as directed Orally Not-Taking/PRN Diabetic Insoles Not-Taking/PRN Extra Depth Orthopedic Shoes (1 Pair) with Customized Heat Molded Multidensity Innersoles (3 Pair) as directed Dx: NIDDM/Polyneuropathy (E11.42), Hammertoe Foot Deformity (M20.41,M20.42), Preulcerative Skin Lesion(s) (L85.1Not-Taking/PRN dilTIAZem HCl 30 MG Tablet 1 tablet before meals and at bedtime Orally Four times a dayNot- Taking/PRN Extra-Depth Diabetic Shoes with 3 Pair Custom heat-molded multi-density innersoles . . for 1 year . Dx:hammertoes and pre-ulcerative callousNot-Taking/PRN Extra Depth Orthopedic Shoes (1 Pair) with Customized Heat Molded Multidensity Innersoles (3 Pair) as directed Dx: NIDDM/Polyneuropathy (E11.42), Hammertoe Foot Deformity (M20.41,M20.42), Preulcerative Skin Lesion(s) (L85.1Not-Taking/PRN Extra Depth Orthopedic Shoes (1 Pair) with Customized Heat Molded Multidensity Innersoles (3 Pair) as directed Dx: NIDDM/Polyneuropathy (E11.42), Hammertoe Foot Deformity (M20.41,M20.42), Preulcerative Skin Lesion(s) (L85.1Not-Taking/PRN Extra Depth Orthopedic Shoes (1 Pair) with Customized Heat Molded Multidensity Innersoles (3 Pair) as directed Dx: NIDDM/Polyneuropathy (E11.42), Hammertoe Foot Deformity (M20.41,M20.42), Preulcerative Skin Lesion(s) (L85.1Not-Taking/PRN Chantix 0.5 MG Tablet 1 tablet Orally Once a dayNot-Taking/PRN Extra-Depth Diabetic Shoes with 3 Pair Custom heat-molded multi-density innersoles . . for 1 year . Dx:hammertoes and pre-ulcerative callousMedication List reviewed and reconciled with the patient * Allergies:?N.K.D.A.yes[Angelo sloan Verified] Objective: * Vitals:?Ht: 5 ft 6 in, Wt:17 8, BMI:28.73, Shoe size:7.5, BS: not taken. * Examination: ???Ophthalmology Referral: ?DIABETES EYE EXAM?Neurological: ?SENSORY:?exam demonstrates. reduced vibration lower extremity, reduced sharp/dull pin prick discrimination , reduced light touch sensation, , 5.07 monofilament test performed at plantar aspects of 5 varied sites per foot, shows sensation, absent, B/L, , at Forefoot, B/L, Pt relates cont.anesthesia, pins and needles sensation b/l feet.?Vascular: ?DP PULSES:?2/4, B/L.?PT PULSES:?2/4, B/L.?Nails: ?NAILS are:?elongated,overgrown, nondystrophic, 2-5 B/L.?Dermatologic: ?SKIN FINDINGS:?Skin exam reveals keratotic lesion(s) located at, TA, T5,Medial plantar, Heel, B/L ,.? Assessment: * Assessment: 1.?Type 2 diabetes mellitus with diabetic polyneuropathy - E11.42? Plan: * Treatment: * Procedures:?Keratoma Treatment:?Parring or Cutting of Benign Hyperkeratotic Lesion(s)?04974 (2-4 Lesions) - The Benign hyperkeratotic lesions, as described above were pared, and/or cut utilizing a sterile #15 blade, tissue nippers, and/or dremel.?Nail Reduction:?Nail Reduction?Trimming of non-dystrophic nails performed to reduce/remove overall nail length and girth, by manual and electrical means with use of a nail nipper and/or dremel, to more viable healthy nail plate or bed tissue 6-10 (51714).? * Procedure Codes:?82043 TRIM SKIN LESIONS, 2 TO 4, Modifiers: XS 01563 TRIM NAIL(S), Modifiers: XS * Follow Up:?prn * Images: * Sign off status: Completed true * Provider:?Estela Bell DPM Date:?2023 Generated for Hector martinez/Eliud/Mariam on:?04/09/2024 05:27 PM EST History and Physical Notes * HPI (History of Present Illness) Category Sub-Category Detail Notes Category Not es At Risk footcare Pt States Last PCP Visit: Date: 4 Examination Category Sub-Category Detail Notes Category Not [...] at, TA, T5,Medial plantar, Heel, B/L , Ophthalmology Referral DIABETES EYE EXAM Diabeti c Retinopathy Screening:: Yes Findings of Diabetic Eye Exam:: no retin opathy Vascular DP PULSES (B): 2/4, B/L PT PULSES (B): 2/4, B/L TEMPERTURE GRADIENT (C): EDEMA (C): PIGMENTATION: Nails NAILS are: elongated,overgrown, nondyst rophic, 2-5 B/L
--- OUTSIDE RECORDS SUMMARY | 2024-04-09 17:27 | XMS_ITS ---
Author Organization [facility] Address [address] [facility] [place] [address] Care Team Providers Care Telegraph Repeater Installer Name Role Phone Cristhian Garcia Primary Care Provider Unav ailable Black, Estela Unavailable [phone] Allergies No Known Allergies REASON FOR VISIT At Risk Footcare Medications Medication SIG (Take, Route, Frequency, Duration) Notes Start Date End Date Status Extra-Depth Diabetic Shoes with 3 Pair Custom heat-molded multi-density innersoles . for 1 year . Dx:hammertoes and pre-ulcerative callous for . 07/25/2013 Not-Taking Extra Depth Orthopedic Shoes (1 Pair) [...] (M20.41,M20.42), Preulcerative Skin Lesion(s) (L85.1 07/18/2016 Not-Taking dilTIAZem HCl 30 MG 1 tablet before meal s and at bedtime Orally Four times a day for 30 day(s) Not-Taking Extra-Depth Diabetic Shoes with 3 Pair Custom heat-molded multi-density innersoles . for 1 year . Dx:hammertoes and pre-ulcerative callous for . Not-Taking Diabetic Insoles Not -Taking Extra Depth Orthopedic Shoes (1 Pair) with Customized Heat Molded Multidensity Innersoles (3 Pair) as directed Dx: NIDDM/Polyneuropathy (E11.42), Hammertoe Foot Deformity (M20.41,M20.42), Preulcerative Skin Lesion(s) (L85.1 Not-Taking Trazodone & Diet Manage Prod 50 MG as directed Orally Not- Taking Fenofibrate 160 MG Oral for 90 Active OneTouch Ultra - USE TO CHECK BLOOD SUGAR EVERY DAY In Vitro for 90 E119,Unavaila ble Active Pioglitazone HCl 30 MG Oral for 90 Active dilTIAZem HCl ER Coated Beads 240 MG Oral for 90 Active Fluticasone Propionate 50 MCG/ACT Nasal for 60 Active traZODone HCl 50 MG Oral for 90 Active Atorvastatin Calcium 40 MG Oral for 90 Active Magnesium 200 MG TAKE 1 TABLET BY MOUTH TWICE DAILY Oral for 5 Active Irbesartan 150 MG Oral for 90 Active Vitamin D3 50 MCG (2000 UT) TAKE 1 CAPSULE BY MOUTH DAILY Oral for 90 Active glyBURIDE Active Actos 15 MG 1 tablet Orally Once a day for 30 day(s) Active Metformin & Diet Manage Prod 500 MG as directed Orally Act janis Pantoprazole Sodium 20 MG Oral for 90 Active Ondansetron HCl 4 MG Oral for 90 Active Gemfibrozil 600 [...] Signs Height 5 ft 6 in in 08/31/2023 Weight 178 lbs 08/31/2023 BMI 28.73 kg/m2 08/31/2023 Procedures Procedure Date Ordered Date Performed Result Body Sit e 17667-OVMW SKIN LESIONS, 2 TO 4 08/31/2023 N/A 58170-XZDS NAIL(S) 08/31/2023 N/A Encounters Encounter Location Date Provider Diagnosis [facility] [place] [address] [place] [address] 08/31/2023 Estela Ray Type 2 diabetes mellitus with diabetic polyneuropathy E11.42 Assessments Encounter Date Diagnosis (ICD Code) Assessment Notes Treatment Notes Treatment Clinical Notes Section Notes 08/31/2023 Type 2 diabetes mellitus with diabetic polyneuropathy (ICD-10 - E11.42) Plan Of Treatment Pending Test Test Name Order Date 78525-GCLM SKIN LESIONS, 2 TO 4 08/31/19 99645-QUCQ NAIL(S) 08/31/2023 Next Appt Details Follow Up: prn, Reason: Provider Name:Estela Moran Ray , 09/05/2024 09:00:00 AM, [address] [place] [address], [phone], Procedure Notes * Category Sub-Category Detail Notes Keratoma Treatment Parring or Cutting o f Benign Hyperkeratotic Lesion(s) 06423 (2-4 Lesions) - The Benign hyperkeratotic lesions, as described above were pared, and/or cut utilizing a sterile #15 blade, tissue nippers, and/or dremel Nail Reduction Nail Reduction Trimming of non- dystrophic nails performed to reduce/remove overall nail length and girth, by manual and electrical means with use of a nail nipper and/or dremel, to more viable healthy nail plate or bed tissue 6-10 (71895) Progress Notes * Larry COLEMAN LDOB:[birth year] (83 yo M)Acc No.[id number]:08/31/2023 Progress Note Patient:?Larry COLEMAN Provider:?Estela Bell DPM :1940???Age:83 Y???Sex:Male Antolin e:08/31/2023 [id number] Pcp:TUSHAR Jiang Subjective: * Chief Complaints: * ???At Risk Footcare * HPI: ???At Risk footcare:?Pt States Last PCP Visit:?Date?08/02/2023 * Medical History:? * Surgical History:?opened art [...] 6 in, Wt:17 8, BMI:28.73, Shoe size:7.5, BS:not taken. * Examination: ???Ophthalmology Referral: ?DIABETES EYE [...] B/L.?PT PULSES (B):?2/4, B/L.?Nails: ?NAILS are:?elongated,overgrown, nondystrophic, 2-5 B/L.?Dermatologic: ?SKIN FINDINGS:?Skin exam reveals keratotic lesion(s) located at, TA, T5,Medial plantar, Heel, B/L ,.?General Examination: ?GENERAL APPEARANCE:?Reveals a pleasant, alert, well nourished, well- developed, well hydrated individual, who demonstrates proper attention to hygiene/body habitus, and is in no acute distress, Pt serves as own historian for office visit today.?ORIENTED:?person, place, and time.?FOOT EXAM:?Footwear Evaluation?Orthopedic: ?FOOTWEAR:?fair condition.? Assessment: * Assessment: 1.?Type 2 diabetes mellitus with diabetic polyneuropathy - E11.42??? Plan: * Treatment: * Procedures:?Keratoma Treatment:?Parring or Cutting of Benign Hyperkeratotic Lesion(s)?12586 (2-4 Lesions) - The Benign hyperkeratotic lesions, as described above were pared, and/or cut utilizing a sterile #15 blade, tissue nippers, and/or dremel.?Nail Reduction:?Nail Reduction?Trimming of non-dystrophic nails performed to reduce/remove overall nail length and girth, by manual and electrical means with use of a nail nipper and/or dremel, to more viable healthy nail plate or bed tissue 6-10 (33287).? * Procedure Codes:?99325 TRIM SKIN LESIONS, 2 TO 4, Modifiers: XS 54635 TRIM NAIL(S), Modifiers: XS * Follow Up:?prn * Images: * Sign off status: Completed true * Provider:?Estela Bell DPM Date:?2023 Generated for Hector martinez/Eliud/eTransmitting on:?04/09/2024 05:27 PM EST History and Physical [...] at, TA, T5,Medial plantar, Heel, B/L , Orthopedic FOOTWEAR: fair condition General Examination GENERAL APPEARANCE: Reveals a pleasant, alert, well nourished, well-developed, well hydrated individual, who demonstrates proper attention to hygiene/body habitus, and is in no acute distress, Pt serves as own historian for office visit today FOOT EXAM: Lower Extremity Neurological Exa m performed:: Yes Visual exam of foot performed:: Yes Date: 08/31/2023 Sensory testing performed:: sensations d iminished Sensory and motor testing performed:: se nsations diminished Pedal pulse taking performed:: 2+ ORIENTED: person, place, and t tony Footwear Evaluation Footwear Evaluation performe d:: Yes Ophthalmology Referral DIABETES EYE EXAM Procedure Perform ed:: No Eye Exam not performed:: No reason speci fied Diabetic Retinopathy Screening:: No Findings of Diabetic Eye Exam:: no retin opathy Vascular DP PULSES (B): 2/4, B/L PT PULSES (B): 2/4, B/L TEMPERTURE GRADIENT (C): EDEMA (C): PIGMENTATION: Nails NAILS are: elongated,overgrown, nondyst rophic, 2-5 B/L
--- OUTSIDE RECORDS SUMMARY | 2024-04-09 17:28 | XMS_ITS ---
Author Organization [facility] Address [address] [place] [address] Care Team Providers Care Dental Hygienist Name Role Phone TOMMY CHAPIN Primary Care Provider Kris Tate Unavailable [phone] Encounters Encounter Location Date Provider Diagnosis [facility] [address] [place] [address] 12/21/2023 Kris Infante PLAN OF TREATMENT Next Appt Details Provider Name:Kris Infante , 04/23/2024 10:50:00 AM, [address], [address], [place], [address],
--- OUTSIDE RECORDS SUMMARY | 2024-04-09 17:28 | XMS_ITS | Clinical Summary ---
Author Organization [facility] Address [address] [address] Phone Care Team Providers Care Journal Clerk Name Role Phone Cristhian Durán NP Primary Care Provider [phone] Allergies No known active allergies Medications atorvastatin [...] Visit [facility] [place] [address] [phone] Hawk Aiken MD [address] [address] Health Maintenance Due Date Last Done Comments [...] age to complete this topic Insurance MEDICARE [facility] MEDICARE [facility] Care Teams Journal Clerk Relationship Specialty Start Date End Date Cristhian Durán NP [facility] [place], [place] [id number] PCP - General Nurse Practitioner 02/16/22
== END 2024-04-09 14:45 | disposition home or self-care (01) ==
PROVIDERS: PCP Nurse Practitioner Family; Visit Provider Nurse Practitioner Family
DX: I10 Essential (primary) hypertension (principal); E53.8 Deficiency of other specified B group vitamins; E55.9 Vitamin D deficiency, unspecified

== ENCOUNTER → 2024-04-09 13:56 | Outpatient (BNVA) | payer MEDICARE, SELFPAY | PROVIDERS: PCP Nurse Practitioner Family; Visit Provider Nurse Practitioner Family | DX: I10 Essential (primary) hypertension (principal); E53.8 Deficiency of other specified B group vitamins; E55.9 Vitamin D deficiency, unspecified | CPT/HCPCS: 96127; 96372; 99212; J3420 ==

== ENCOUNTER 2024-04-12 06:10 | Outpatient (REF) | payer MEDICARE, SELFPAY ==
--- OUTSIDE RECORDS SUMMARY | 2024-04-12 06:13 | XMS_ITS ---
Author Organization [facility] Address [address] [place] [address] Care Team Providers Care Wire Coater Name Role Phone TOMMY CHAPIN Primary Care Provider Kris Tate [phone] Encounters Encounter Location Date Provider Diagnosis [facility] [address] [place] [address] 01/04/2024 Kris Infante PLAN OF TREATMENT Next Appt Details Provider Name:Kris Infante , 04/23/2024 10:50:00 AM, [address], [address], [place], [address],
--- OUTSIDE RECORDS SUMMARY | 2024-04-12 06:13 | XMS_ITS | Clinical Summary ---
Author Organization [facility] Address [address] [place] [address] Care Team Providers Care Water Conservation Specialist Name Role Phone Unavailable Primary Care Provider [...]
--- OUTSIDE RECORDS SUMMARY | 2024-04-12 06:13 | XMS_ITS ---
Author Organization [facility] Address [address] [place] [address] Care Team Providers Care Excelsior Cutter Name Role Phone Cristhian Garcia Primary Care Provider Unav ailable Black, Estela Unavailable [phone] Allergies No Known Allergies REASON FOR VISIT [...] Ordered Date Performed Result Body Sit e 75906-NWYK SKIN LESIONS, 2 TO 4 03/02/2023 N/A 25244-ZDVX NAIL(S) 03/02/2023 N/A Encounters Encounter Location Date Provider Diagnosis [facility] [address] [address] 03/02/2023 Estela Bell Type 2 diabetes mellitus with diabetic polyneuropathy E11.42 Assessments Encounter Date Diagnosis (ICD Code) Assessment Notes Treatment Notes Treatment Clinical Notes Section Notes 03/02/2023 Type 2 diabetes mellitus with diabetic polyneuropathy (ICD-10 - E11.42) 03/02/2023 Other Plan Of Treatment Pending Test Test Name Order Date 93825-UFQZ SKIN LESIONS, 2 TO 4 03/02/19 85591-LNHF NAIL(S) 03/02/2023 Next Appt Details Follow Up: prn, Reason: Provider Name:Estela Bell , 09/05/2024 09:00:00 AM, [address] [place] [address], [phone], Procedure Notes * Category Sub-Category Detail Notes Keratoma Treatment Parring or Cutting o f Benign Hyperkeratotic Lesion(s) 01845 (2-4 Lesions) - The Benign hyperkeratotic lesions, as described above were pared, and/or cut utilizing a sterile #15 blade, tissue nippers, and/or dremel Nail Reduction Nail Reduction Trimming of non- dystrophic nails performed to reduce/remove overall nail length and girth, by manual and electrical means with use of a nail nipper and/or dremel, to more viable healthy nail plate or bed tissue 6-10 (76201) Progress Notes * Larry COLEMAN LDOB:[birth year] (82 yo M)Acc No.[id number]:03/02/2023 Progress Note Patient:?Larry Coleman Provider:?Estela Bell DPM :1940???Age:82 Y???Sex:Male Antolin e:03/02/2023 Address:[address] [place], [place] [address]Carlos [id number] Pcp:TUSHAR Jiang Subjective: * Chief Complaints: * [...] taken. * Examination: ???Ophthalmology Referral: ?DIABETES EYE EXAM?Diabetic Retinopathy Screening:?Yes ?Findings of Diabetic Eye Exam:?no retinopathy?Neurological: ?SENSORY:?exam demonstrates. reduced vibration lower extremity, reduced [...] Procedures:?Keratoma Treatment:?Parring or Cutting of Benign Hyperkeratotic Lesion(s)?91089 (2-4 Lesions) - The Benign hyperkeratotic lesions, as described above were pared, and/or cut utilizing a sterile #15 blade, tissue nippers, and/or dremel.?Nail Reduction:?Nail Reduction?Trimming of non-dystrophic nails performed to reduce/remove overall nail length and girth, by manual and electrical means with use of a nail nipper and/or dremel, to more viable healthy nail plate or bed tissue 6-10 (38294).? * Procedure Codes:?77841 TRIM SKIN LESIONS, 2 TO 4, Modifiers: XS 10707 TRIM NAIL(S), Modifiers: XS * Follow Up:?prn * Images: * Sign off status: Completed true * Provider:?Estela Bell DPM Date:?2023 Generated for Hector martinez/Eliud/Mariam on:?04/12/2024 06:13 AM EST History and Physical Notes * HPI [...]
--- OUTSIDE RECORDS SUMMARY | 2024-04-12 06:13 | XMS_ITS ---
Author Organization [facility] Address [address] [place] [address] Care Team Providers Care Violin Maker Hand Name Role Phone TOMMY CHAPIN Primary Care Provider Kris Tate [phone] Encounters Encounter Location Date Provider Diagnosis [facility] [address] [place] [address] 12/05/2023 Kris Infante PLAN OF TREATMENT Next Appt Details Provider Name:Kris Infante , 04/23/2024 10:50:00 AM, [address], [address], [place], [address],
--- OUTSIDE RECORDS SUMMARY | 2024-04-12 06:13 | XMS_ITS ---
Author Organization [facility] Address [address] [place] [address] Care Team Providers Care Power Plant Engineer Name Role Phone Cristhian Garcia Primary Care Provider Unav ailable Black, Estela Unavailable [phone] Allergies No Known Allergies REASON FOR VISIT [...] Ordered Date Performed Result Body Sit e 45019-XAMQ SKIN LESIONS, 2 TO 4 03/07/2024 N/A 43442-FHCY NAIL(S) 03/07/2024 N/A Encounters Encounter Location Date Provider Diagnosis [facility] [place] [address] [place] [address] 03/07/2024 Estela Bell Type 2 diabetes mellitus [...] days Pending Test Test Name Order Date 23703-KAPE SKIN LESIONS, 2 TO 4 03/07/19 36515-RQTS NAIL(S) 03/07/2024 Next Appt Details Follow Up: prn, Reason: Provider Name:Estela Bell , 09/05/2024 09:00:00 AM, [address] [place] [address], [phone], Procedure Notes * Category Sub-Category Detail Notes [...] instrumentation by the physician of record - 17350 Nail Reduction Nail Reduction (-19) Trimming o [...] healthy nail plate or bed tissue - 07849 Progress Notes * Larry COLEMAN LDOB:[birth year] (83 yo M)Acc No.[id number]:03/07/2024 Progress Note Patient:?Larry COLEMAN Provider:?Estela Bell DPM :1940???Age:83 Y???Sex:Male Antolin e:03/07/2024 Address:[address] [place], [place] [id number] Pcp:TUSHAR Jiang Subjective: * Chief Complaints: * [...] * Examination: ???CQM Exceptions:: ?Hemoglobin A1c not performed?Reason:?No reason specified?Ophthalmology Referral: ?DIABETES EYE EXAM?Procedure Performed:?Yes ?Date of Exam Performed?02/13/2023 ?Findings of Diabetic Eye Exam:?no retinopathy?General Examination: ?GENERAL APPEARANCE:?Reveals a pleasant, alert, well nourished, well- developed, well hydrated individual, who demonstrates proper attention to hygiene/body habitus, and is in no acute distress, Pt serves as own historian for office visit today.?ORIENTED:?person, place, and time.?Footwear Evaluation?Footwear Evaluation performed:?Yes?Neurological: ?SENSORY:?exam demonstrates. reduced vibration lower extremity, reduced [...] instrumentation by the physician of record - 22235.?Nail Reduction:?Nail Reduction?(-19) Trimming of all non-dystrophic nails [...] healthy nail plate or bed tissue - 52919.? * Procedure Codes:?26545 TRIM SKIN LESIONS, 2 TO 4, Modifiers: XS 20961 TRIM NAIL(S), Modifiers: XS * Preventive Medicine:? [...] Provider:?Estela Bell DPM Date:?2024 Generated for Hector mratinez/Eliud/Annemariesmitting on:?04/12/2024 06:13 AM EST History and Physical [...]
--- OUTSIDE RECORDS SUMMARY | 2024-04-12 06:14 | XMS_ITS ---
Author Organization [facility] Address [address] [place] [address] Care Team Providers Care Supervisor Farm Equipment Maintenance Name Role Phone TOMMY CHAPIN Primary Care Provider Kris Tate Unavailable [phone] Encounters Encounter Location Date Provider Diagnosis [facility] [address] [place] [address] 12/21/2023 Kris Infante PLAN OF TREATMENT Next Appt Details Provider Name:Kris Infante , 04/23/2024 10:50:00 AM, [address], [address], [place], [address],
--- OUTSIDE RECORDS SUMMARY | 2024-04-12 06:14 | XMS_ITS | Patient Health Record ---
Author Organization [facility] Address [address] [place] [address] Care Team Providers Care Orchestrator Name Role Phone TOMMY DURÁN Primary Care Provider Kris Tate Unavailable [phone] ALLERGIES No Known Allergies RESULTS Component Value Reference Range Notes Amylase Reviewed date:04/20/2023 06:26:46 PM Interpretation: Performing Lab:[address] [address] Notes/Report: Amylase 28 28-100 U/L Lipase Reviewed date:04/20/2023 06:26:39 PM Interpretation: Performing Lab:[address] [address] Notes/Report: Lipase 15 8-78 U/L US abdomen complete Reviewed date:04/24/2023 10:29:17 PM Interpretation: Performing Lab: Notes/Report: [address] [address] Ultrasound Report Signed Patient: Kris Coleman MR#: [id number] : 1940 Acct:[id number] Age/Sex: 83 / M ADM Date: 04/21/23 Loc: HO.US Attending Dr: Kris Infante MD Ordering Physician: Kris Infante Date of Service: 04/21/23 Procedure(s): US abdomen complete Accession Number(s): [id number] cc: Tommy Durán CONFERENCE AND EVENT ORGANISER-; Kris Infante EXAMINATION: US ABDOMEN COMPLETE CLINICAL [...] in OV> 04/22/23 0828 DD/ 1315 TD/TT: Electrician Master: LANDON [employer] Reviewed date:06/08/2023 06:57:15 PM Interpretation: Performing Lab:[facility], [address] [place] [address] Notes/Report: Sodium 140 135-145 mmol/L Potassium 4.2 3.3-5.1 mmol/L Chloride 108 96-108 mmol/L Carbon Dioxide 23 22-29 mmol/L Anion Gap 13 12-20 Creatinine Reviewed date:06/08/2023 06:56:59 PM Interpretation: Performing Lab:[address] [address] Notes/Report: Creatinine 1.42 0.5-1.4 mg/dL Estimated Glomerular Filt Rate 48 NOTE: For -[place] individuals, multiply the result by 1.210. Chronic Kidney Disease: Estimated GFR < 60 mL/min/1.73m2 Severe Kidney Disease: Estimated GFR < 15 mL/min/1.73m2 Ferritin Reviewed date:08/24/2023 07:44:13 PM Interpretation: Performing Lab:[address] [address] Notes/Report: Ferritin 56 20-250 ng/mL Vitamin B12 and Folate Reviewed date:08/11/2023 05:53:39 PM Interpretation: Performing Lab:[facility], [address] [place] [address] Notes/Report: Vitamin B12 > 2000 200-900 pg/mL NORMAL 200-900 PG/ML INDETERMINATE 160-199 PG/ML DEFICIENT < 160 PG/ML Folate 8.1 > or = 4.0 ng/mL Reference Values: > or = 4.0 ng/mL < 4.0 ng/mL suggests folate deficiency Methotrexate, aminopterin and folinic acid (leucovorin) are chemotherapeutic agents whose molecular structures are similar to folate; therefore, the Medical Care Manager folate assay cannot be used for patients using these drugs. Complete Blood Count Auto Di ff Reviewed date:04/24/2023 10:30:47 PM Interpretation: Performing Lab:[facility], [address] [place] [address] Notes/Report: White Blood Count 11.1 4.8-10.8 X10*3/uL [...] Panel Reviewed date:04/20/2023 06:26:29 PM Interpretation: Performing Lab:[address] [address] Notes/Report: Bilirubin Total 0.5 0.0-1.0 mg/dL Bilirubin Direct 0.3 0.0-0.5 mg/dL Aspartate Amino Transferase 18 5-37 U/L Alanine Aminotransferase 9 0-40 U/L Total Protein 6.5 6.5-8.0 g/dL Albumin Level 3.4 3.5-5.0 g/dL Alkaline Phosphatase 49 39-117 U/L Complete Blood Count Auto Di ff Reviewed date:06/13/2023 06:06:26 PM Interpretation: Performing Lab:[address] [address] Notes/Report: White Blood Count 7.7 4.8-10.8 X10*3/uL [...] te Reviewed date:06/08/2023 06:56:50 PM Interpretation: Performing Lab:[address] [address] Notes/Report: Erythrocyte Sedimentation Rate 30 0-15 MM/HR Patients with polycythemia and many hemoglobin abnormalities may have depressed sed rates whereas patients with anemia may have elevated sed rates. Liver Panel Reviewed date:06/08/2023 06:56:30 PM Interpretation: Performing Lab:[address] [address] Notes/Report: Bilirubin Total 0.6 0.0-1.0 mg/dL Bilirubin Direct 0.3 0.0-0.5 mg/dL Aspartate Amino Transferase 15 5-37 U/L Alanine Aminotransferase 8 0-40 U/L Total Protein 6.8 6.5-8.0 g/dL Albumin Level 3.6 3.5-5.0 g/dL Alkaline Phosphatase 39 39-117 U/L Blood Urea Nitrogen Reviewed date:06/08/2023 06:56:37 PM Interpretation: Performing Lab:[facility], [address] [place] [address] Notes/Report: Blood Urea Nitrogen 23 9-16 mg/dL C Reactive Protein Reviewed date:06/14/2023 10:05:28 PM Interpretation: Performing Lab:[facility], [address] [place] [address] Notes/Report: C Reactive Protein 15.47 < or = 0.50 mg/dL CT abdomen pelvis wo con Reviewed date:06/14/2023 10:03:37 PM Interpretation: Performing Lab: Notes/Report: [address] [address] [address] Scan Report Signed Patient: Kris Coleman MR#: [id number] : 1940 Acct:[id number] Age/Sex: 83 / M ADM Date: 06/13/23 Loc: HO.CT Attending Dr: Kris Infante MD Ordering Physician: Kris Infante Date of Service: 06/13/23 Procedure(s): CT abdomen pelvis wo IV con Accession Number(s): [id number] cc: Tommy Durán [facility]; Kris Infante EXAMINATION: CT ABDOMEN AND PELVIS [...] in OV> 06/14/23 1839 DD/ 1156 TD/TT: Electrician Master: CT abdomen pelvis w con Reviewed date:08/10/2023 06:00:05 PM Interpretation: Performing Lab: Notes/Report: [address] [address] [address] Scan Report Signed Patient: Kris Coleman MR#: [id number] : 1940 Acct:[id number] Age/Sex: 83 / M ADM Date: 08/04/23 Loc: HO.CT Attending Dr: Kris Infante MD Ordering Physician: Kris Infante Date of Service: 08/04/23 Procedure(s): CT abdomen pelvis w IV con Accession Number(s): [id number] cc: Tommy Durán [facility]; Kris Infante EXAMINATION: CT ABDOMEN AND PELVIS [...] in OV> 08/04/23 1616 DD/ 1359 TD/TT: Electrician Master: CARLOS Complete Blood Count Auto Di ff Reviewed date:08/11/2023 05:10:58 PM Interpretation: Performing Lab:[facility], [address] [place] [address] Notes/Report: White Blood Count 5.2 4.8-10.8 X10*3/uL [...] te Reviewed date:08/11/2023 05:53:06 PM Interpretation: Performing Lab:[address] [address] Notes/Report: Erythrocyte Sedimentation Rate 4 0-15 MM/HR Patients with polycythemia and many hemoglobin abnormalities may have depressed sed rates whereas patients with anemia may have elevated sed rates. Liver Panel Reviewed date:08/11/2023 05:53:16 PM Interpretation: Performing Lab:[address] [place] [address] Notes/Report: Bilirubin Total 0.3 0.0-1.0 mg/dL Bilirubin Direct 0.1 0.0-0.5 mg/dL Aspartate Amino Transferase 24 5-37 U/L Alanine Aminotransferase 13 0-40 U/L Total Protein 6.8 6.5-8.0 g/dL Albumin Level 3.9 3.5-5.0 g/dL Alkaline Phosphatase 37 39-117 U/L IRON PROFILE Reviewed date:08/11/2023 05:53:25 PM Interpretation: Performing Lab:[address] [address] Notes/Report: Iron 56 45-160 mcg/dL Total Iron Binding Capacity 351 228-428 mcg/d L Percent Iron Saturation 16 15-50 % Unsaturated Iron Binding 295 C Reactive Protein Reviewed date:08/11/2023 05:53:31 PM Interpretation: Performing Lab:[address] [address] Notes/Report: C Reactive Protein < 0.10 < or = 0.50 mg/dL Prostate Specific Antigen Reviewed date:08/11/2023 05:52:59 PM Interpretation: Performing Lab:[address] [address] Notes/Report: Prostate Specific Antigen 0.83 <0.05-4.0 ng/mL PSA methodology: Keller Alinity i Chemiluminescent Microparticle Immunoassay (CMIA) CT abdomen pelvis wo con Reviewed date:12/21/2023 04:34:52 PM Interpretation: Performing Lab: Notes/Report: [address] [address] [address] Scan Report Signed Patient: Kris Coleman MR#: [id number] : 1940 Acct:[id number] Age/Sex: 83 / M ADM Date: 12/15/23 Loc: HO.CT Attending Dr: Kris Infante MD Ordering Physician: Kris Infante MD Date of Service: 12/15/23 Procedure(s): CT abdomen pelvis wo IV con Accession Number(s): [id number] cc: Tommy Durán-; Kris Infante MD EXAMINATION: [...] 12/15/23 1632 DD/ 1335 TD/TT: 12/15/23 1335 Electrician Master: Complete Blood Count Auto Di ff Reviewed date:01/04/2024 06:22:26 PM Interpretation: Performing Lab:[facility], [address] [place] [address] Notes/Report: White Blood Count 4.0 4.8-10.8 X10*3/uL [...] Panel Reviewed date:01/04/2024 06:22:38 PM Interpretation: Performing Lab:[address] [address] Notes/Report: Bilirubin Total 0.5 0.0-1.0 mg/dL Bilirubin Direct 0.2 0.0-0.5 mg/dL Aspartate Amino Transferase 39 5-37 U/L Slight Hemolysis.Interpret result with caution. Alanine Aminotransferase 19 0-40 U/L Total Protein 6.2 6.5-8.0 g/dL Albumin Level 3.7 3.5-5.0 g/dL Alkaline Phosphatase 42 39-117 U/L Basic Metabolic Panel Reviewed date:01/04/2024 06:24:42 PM Interpretation: Performing Lab:[address] [address] Notes/Report: Sodium 142 135-145 mmol/L Potassium 4.5 [...] PROFILE Reviewed date:01/04/2024 12:39:25 PM Interpretation: Performing Lab:[address] [address] Notes/Report: Iron 83 45-160 mcg/dL Slight Hemolys is.Interpret result with caution. Total Iron Binding Capacity 356 228-428 mcg/d L Percent Iron Saturation 23 15-50 % Unsaturated Iron Binding 273 Ferritin Reviewed date:01/04/2024 06:24:51 PM Interpretation: Performing Lab:[facility], [address] [place] [address] Notes/Report: Ferritin 53 20-250 ng/mL Free T4 (Free Thyroxine) Reviewed date:01/04/2024 06:24:58 PM Interpretation: Performing Lab:[facility], [address] [place] [address] Notes/Report: Free T4 (Free Thyroxine) 1.17 0.71-1.85 ng/dL TSH reflex Free T4 Reviewed date:01/04/2024 12:39:16 PM Interpretation: Performing Lab:[facility], [address] [place] [address] Notes/Report: TSH reflex Free T4 4.01 0.32-4.0 uIU/mL REASON FOR REFERRAL No Information MEDICATIONS Medication SIG (Take, Route, Frequency, Duration) Notes Start Date End Date Status Omeprazole 40 MG TAKE 1 CAPSULE BY [facility] EVERY MORNING for 30 Active Magnesium 200 MG 1 tablet with a meal Orally Twice a day Active Nasal [place] 0.05 % 4 sprays (2 sprays i [...] abdominal pain (R10.13) Active confirmed Epigastric pain (25620656) Problem Epigastric pain (R10.13) Active confirmed Epigastric pain (70977759) Problem Diverticulitis of small intestine with perforation and abscess without bleeding (K57.00) Active confirmed Perforation and abscess of small intestine co-occurrent and due to diverticulitis (disorder) (874180761) Problem Diverticulitis of small intestine without perforation or abscess without bleeding (K57.12) Active confirmed Diverticul itis of small intestine (88317374) Problem Nausea (R11.0) Active confirmed Nausea (904810050) Problem Anorexia (R63.0) Active confirmed Anore rick (15329775) Problem Early satiety (R68.81) Active confirmed Early satiety (925287956) Problem Anemia (D64.9) Active confirmed Anemia (649953122) Problem Gastritis (K29.70) Active confirmed Gastritis (0100514) Problem Chronic fatigue (R53.82) Active confirmed Chronic fatigue syndrome (24995488) Problem GERD (gastroesophageal reflux disease) (K21.9) Active confirmed Gastroesophagea l reflux disease (008388412) Problem Decreased appetite (R63.0) Active confirmed Loss of carmela etite (67373766) VITAL SIGNS Temperature 96.8 degrees Fahrenheit 04/20/2023 Blood pressure diastolic 00 mm Hg 10/24/2023 Height 67 in 10/24/2023 Blood pressure systolic 00 mm Hg 10/24/2023 Weight 157 lbs 10/24/2023 BMI 24.59 kg/m2 10/24/2023 Encounters Encounter Location Date Provider Diagnosis [facility] [address] [place] [address] 04/20/2023 Kris Infante Nausea R11.0 and Epigastric pain R10.13 [facility] [address] [place] [phone] 06/08/2023 Kris Infante Epigastric abdominal pain R10.13 and Diverticulitis of small intestine with perforation and abscess without bleeding K57.00 [facility] [address] [place] [address] 06/20/2023 Kris Infante Anemia D64.9 and Diverticulitis of small intestine with perforation and abscess without bleeding K57.00 [facility] [address] [place] [address] 10/24/2023 Kris Infante Diverticulitis of sm all intestine with perforation and abscess without bleeding K57.00 ; Anemia D64.9 and Chronic fatigue R53.82 [facility] [address] [place] [address] 04/19/2023 Kris Infante [facility] [address] [place] [address] 04/20/2023 Kris Infante [facility] [address] [place] [address] 05/02/2023 Kris Infante GERD (gastroesophage al reflux disease) K21.9 [facility] [address] [place] [address] 05/10/2023 Kris Infante [facility] [address] [place] [address] 06/06/2023 Kris Infante [facility] [address] [place] [address] 06/08/2023 Kris Infante [facility] [address] [place] [phone] 06/08/2023 Kris Infante [facility] [address] [place] [phone] 06/20/2023 Kris Infante [facility] [address] [place] [address] 06/26/2023 Kris Infante Diverticulitis of sm all intestine with perforation and abscess without bleeding K57.00 [facility] [address] [place] [address] 08/01/2023 Kris Infante [facility] [address] [place] [phone] 08/10/2023 Kris Infante Diverticulitis of sm all intestine with perforation and abscess without bleeding K57.00 and Anemia D64.9 [facility] [address] [place] [phone] 11/16/2023 Kris Infante [facility] [address] [place] [phone] 11/20/2023 Kris Infante [facility] [address] [place] [address] 12/05/2023 Kris Infante [facility] [address] [place] [phone] 12/21/2023 Kris Infante [facility] [address] [place] [phone] 01/04/2024 Kris Infante ASSESSMENTS Encounter Date Diagnosis Assessment Notes Treatment Notes Treatment Clinical Notes 04/20/2023 Epigastric pain (ICD-10 - R10.13) 04/20/2023 Nausea (ICD-10 - R11.0) 06/08/2023 Epigastric abdominal pain (ICD-10 - R10.13) 06/08/2023 Diverticulitis of small intestine with perforation and abscess without bleeding (ICD-10 - K57.00) 06/20/2023 Diverticulitis of small intestine with perforation and abscess without bleeding (ICD-10 - K57.00) 06/20/2023 Anemia (ICD-10 - D64.9) 10/24/2023 Diverticulitis of small intestine with perforation [...] 06/08/2023 BUN 02/08/2022 CREATININE 02/08/2022 LIVER PROFILE 06/08/2023 LIVER PROFILE 08/10/2023 LIVER PROFILE 06/26/2023 LIVER PROFILE 04/20/2023 LIVER PROFILE 10/24/2023 IRON + IBC (FE) 06/20/2023 IRON + IBC (FE) 10/24/2023 IRON + IBC (FE) 08/10/2023 CRP 06/08/2023 CRP 06/26/2023 CRP 08/10/2023 VITAMIN B12 AND FOLATE 06/20/2023 CBC w DIFF 10/24/2023 CBC w DIFF 06/20/2023 CBC w DIFF 06/08/2023 CBC w DIFF 04/20/2023 CBC w DIFF 06/26/2023 CBC w DIFF 08/10/2023 SED RATE (ESR) 06/26/2023 SED RATE (ESR) 08/10/2023 SED RATE (ESR) 06/08/2023 CT ABD & PELVIS WITH CONTRAST 06/26/2023 CT ABD & PELVIS WITH CONTRAST 02/08/2022 CT ABD & PELVIS WITH PO CONT ONLY 2023 CT ABD & PELVIS WITH PO CONT ONLY 2023 NUC GASTRIC ANTRUM EMPTYING 12/18/2021 Ferritin 10/24/2023 Ferritin 06/20/2023 TSH reflex Free T4 10/24/2023 Future Test Test Name Order Date UPPER GI ENDOSCOPY 11/17/2021 Next Appt Details Provider Name:Kris Infante , 04/23/2024 10:50:00 AM, [address] [place] [address], [address], [place], [address], Insurance Providers Payer Name Payer Address Payer Phone Subscriber Number Group Number Insured Name Patient Relationship to Insured Coverage Start Date Coverage End Date MEDICARE OF [place] [address] [place] [address] [phone] [id number] KRIS BAKER Self - patient is the insured [employer] ATT[employer] CLAIMS [address] [place] [phone] [id number] KRIS BAKER Self - patient is the insured MEDICAL (GENERAL) HISTORY Medical History History ICD Code Kidney stones COPD Prostate cancer NIDDM Hypertension Denies NV,CVA,Lung disease,renal disease Negative colonoscopy > 10 years [...] MARSHAL-followed by vascular surgery, Dr. Soler, at [facility]. He felt this presented more of a chronic issue as opposed to an acute problem. Inflammation and small absce sses in the region of the small bowel seen on the CT scan during the workup for the abdominal pain in April of 2023. This was treated with IV and subsequent oral antibiotics at [facility]. There was the finding of multiple [...]
--- OUTSIDE RECORDS SUMMARY | 2024-04-12 06:14 | XMS_ITS ---
Author Organization [facility] Address [address] [place] [address] Care Team Providers Care Systems Development Consultant Name Role Phone Cristhian Garcia Primary Care Provider Unav ailable Black, Estela Unavailable [phone] Allergies No Known Allergies REASON FOR VISIT [...] Ordered Date Performed Result Body Sit e 38312-BGVB SKIN LESIONS, 2 TO 4 08/31/2023 N/A 50832-HGTI NAIL(S) 08/31/2023 N/A Encounters Encounter Location Date Provider Diagnosis [facility] [address] [place] [address] 08/31/2023 Estela Ray Type 2 diabetes mellitus with diabetic polyneuropathy E11.42 Assessments Encounter Date Diagnosis (ICD Code) Assessment Notes Treatment Notes Treatment Clinical Notes Section Notes 08/31/2023 Type 2 diabetes mellitus with diabetic polyneuropathy (ICD-10 - E11.42) Plan Of Treatment Pending Test Test Name Order Date 51456-RSAD SKIN LESIONS, 2 TO 4 08/31/19 45840-ESOO NAIL(S) 08/31/2023 Next Appt Details Follow Up: prn, Reason: Provider Name:Estela Moran Ray , 09/05/2024 09:00:00 AM, [address] [place] [address], [phone], Procedure Notes * Category Sub-Category Detail Notes Keratoma Treatment Parring or Cutting o f Benign Hyperkeratotic Lesion(s) 65945 (2-4 Lesions) - The Benign hyperkeratotic lesions, as described above were pared, and/or cut utilizing a sterile #15 blade, tissue nippers, and/or dremel Nail Reduction Nail Reduction Trimming of non- dystrophic nails performed to reduce/remove overall nail length and girth, by manual and electrical means with use of a nail nipper and/or dremel, to more viable healthy nail plate or bed tissue 6-10 (79299) Progress Notes * Larry COLEMAN LDOB:[birth year] (83 yo M)Acc No.[id number]:08/31/2023 Progress Note Patient:?Larry COLEMAN Provider:?Estela Bell DPM :1940???Age:83 Y???Sex:Male Antolin e:08/31/2023 [id number] Pcp:TUSHAR Jiang Subjective: * Chief Complaints: [...] and reconciled with the patient * Allergies:?N.K.D.A.yes[Angelo giloreta Verified] Objective: * Vitals:?Ht: 5 ft 6 in, Wt:17 8, BMI:28.73, Shoe size:7.5, BS:not taken. * Examination: ???Ophthalmology Referral: ?DIABETES EYE EXAM?Procedure Performed:?No ?Eye Exam not performed:?No reason specified ?Diabetic Retinopathy Screening:?No ?Findings of Diabetic Eye Exam:?no retinopathy?Neurological: ?SENSORY:?exam [...] for office visit today.?ORIENTED:?person, place, and time.?FOOT EXAM:?Lower Extremity Neurological Exam performed:?Yes ?Visual exam of foot performed:?Yes ?Date?08/31/2023 ?Sensory testing performed:?sensations diminished ?Sensory and motor testing performed:?sensations diminished ?Pedal pulse taking performed:?2+ ?Footwear Evaluation?Footwear Evaluation performed:?Yes?Orthopedic: ?FOOTWEAR:?fair condition.? Assessment: * Assessment: 1.?Type 2 diabetes mellitus with diabetic polyneuropathy - E11.42??? Plan: * Treatment: * Procedures:?Keratoma Treatment:?Parring or Cutting of Benign Hyperkeratotic Lesion(s)?36528 (2-4 Lesions) - The Benign hyperkeratotic lesions, as described above were pared, and/or cut utilizing a sterile #15 blade, tissue nippers, and/or dremel.?Nail Reduction:?Nail Reduction?Trimming of non-dystrophic nails performed to reduce/remove overall nail length and girth, by manual and electrical means with use of a nail nipper and/or dremel, to more viable healthy nail plate or bed tissue 6-10 (83305).? * Procedure Codes:?35299 TRIM SKIN LESIONS, 2 TO 4, Modifiers: XS 01624 TRIM NAIL(S), Modifiers: XS * Follow Up:?prn * Images: * Sign off status: Completed true * Provider:?Estela Bell DPM Date:?2023 Generated for Hector martinez/Eliud/Rebeccaitting on:?04/12/2024 06:13 AM EST History and Physical [...]
--- OUTSIDE RECORDS SUMMARY | 2024-04-12 06:14 | XMS_ITS | Clinical Summary ---
Author Organization [facility] Address [address] [address] Phone Care Team Providers Care Social Worker Masters Name Role Phone Cristhian Durán NP Primary Care Provider [phone] Allergies No known active allergies Medications atorvastatin [...] Visit [facility] [address] [phone] Hawk Aiken MD [address] [address] Health Maintenance Due Date Last Done Comments [...] age to complete this topic Insurance MEDICARE [facility] MEDICARE [facility] Care Teams Social Worker Masters Relationship Specialty Start Date End Date Cristhian Durán NP [facility] [place], [place] [phone] PCP - General Nurse Practitioner 02/16/22
[2024-04-12 10:16] LABS: MANUAL DIFF FLAG NO
[2024-04-12 10:19] LABS: Basophils Percent Auto 0.8 % (0-2); Eosinophils Absolute Auto 0.3 X10*3/uL (0.0-0.4); Eosinophils Percent Auto 5.9 % (0-4); Hematocrit 36.7 % (42.0-52.0); Hemoglobin 11.7 g/dl (14.0-18.0); Imm Gran Abs Auto 0.01 X10*3/uL (0.00-0.03); Imm Gran Pct Auto 0.2 % (0.0-0.4); Lymphocytes Absolute Auto 1.4 X10*3/uL (1.2-4.9); Lymphocytes Percent Auto 26.5 % (20-40); Mean Corpuscular HGB Conc 31.9 g/dl (31.0-36.0); Mean Corpuscular Hemoglobin 30.2 pg (27.0-33.0); Mean Corpuscular Volume 94.8 fL (80.0-98.0); Mean Platelet Volume 11.8 fL (9.4-12.4); Monocytes Absolute Auto 0.4 X10*3/uL (0.1-1.2); Monocytes Percent Auto 7.5 % (2-11); Neutrophils Percent Auto 59.1 % (45-73); Platelet Count 195 X10*3/uL (160-400); Red Blood Count 3.87 X10*6/uL (4.60-5.80); Red Cell Distribution Width 16.5 % (11.0-16.0); White Blood Count 5.1 X10*3/uL (4.8-10.8)
[2024-04-12 10:36] LABS: Appearance Urine Clear; Color Urine Yellow; Glucose Urine UA Negative (Negative); Leukocyte Esterase Urine Negative (Negative); Nitrite Urine Negative (Negative); PH 5.5 (5.0-9.0); Urine Blood Negative (Negative); Urine Ketones Negative (Negative); Urine Protein Negative (Neg-Trace)
[2024-04-12 10:54] LABS: Creatinine Urine 128.35 mg/dL; Microalbum/Creatinine Ratio Ur 6.2 ug/mg cr (<30)
[2024-04-12 11:00] LABS: Alanine Aminotransferase 20 U/L (0-40); Albumin Level 3.7 g/dL (3.5-5.0); Alkaline Phosphatase 57 U/L (39-117); Anion Gap 13 (12-20); Aspartate Amino Transferase 33 U/L (5-37); Bilirubin Total 0.4 mg/dL (0.0-1.0); Blood Urea Nitrogen 26 mg/dL (9-16); Calcium 9.6 mg/dL (8.4-10.2); Carbon Dioxide 23 mmol/L (22-29); Chloride 112 mmol/L (96-108); Cholesterol 113 mg/dL (<200); Estimated Glomerular Filt Rate 50; Glucose Fasting 156 mg/dL (60-99); HDL Cholesterol 31 mg/dL (>40); LDL Cholesterol Calculated 58 mg/dL (<100); Potassium 4.4 mmol/L (3.3-5.1); Sodium 144 mmol/L (135-145); Total Protein 6.4 g/dL (6.5-8.0); Triglycerides 122 mg/dL (<150)
[2024-04-12 11:01] LABS: Vitamin D 25-OH Total 65.2 ng/mL (>30)
[2024-04-12 11:14] LABS: Folate 9.8 ng/mL (> or = 4.0); Vitamin B12 1247 pg/mL (200-900)
[2024-04-15 17:47] LABS: Homocysteine 16.7 umol/L (<11.4)
[2024-04-16 17:38] LABS: Methylmalonic Acid 323 nmol/L (85-423)
== END 2024-04-12 06:11 | disposition home or self-care (01) ==
LOC: HO.HMGCLDS 06:10
PROVIDERS: PCP Nurse Practitioner Family; Visit Provider Nurse Practitioner Family
DX: I10 Essential (primary) hypertension (principal); E11.9 Type 2 diabetes mellitus without complications; E53.8 Deficiency of other specified B group vitamins; E55.9 Vitamin D deficiency, unspecified
CPT/HCPCS: 36415; 80053; 80061; 81003; 82043; 82306; 82570; 82607; 82746; 83090; 83921; 84443; 85025

== ENCOUNTER 2024-05-07 08:23 | Outpatient (REF) | payer MEDICARE, SELFPAY ==
[2024-05-07 10:16] LABS: MANUAL DIFF FLAG NO
[2024-05-07 10:26] LABS: Basophils Percent Auto 0.4 % (0-2); Eosinophils Absolute Auto 0.2 X10*3/uL (0.0-0.4); Eosinophils Percent Auto 3.5 % (0-4); Hematocrit 38.2 % (42.0-52.0); Hemoglobin 12.3 g/dl (14.0-18.0); Imm Gran Abs Auto 0.02 X10*3/uL (0.00-0.03); Imm Gran Pct Auto 0.4 % (0.0-0.4); Lymphocytes Absolute Auto 1.3 X10*3/uL (1.2-4.9); Mean Corpuscular HGB Conc 32.2 g/dl (31.0-36.0); Mean Corpuscular Volume 93.2 fL (80.0-98.0); Mean Platelet Volume 10.9 fL (9.4-12.4); Monocytes Absolute Auto 0.4 X10*3/uL (0.1-1.2); Monocytes Percent Auto 7.2 % (2-11); Neutrophils Absolute Auto 3.1 x10*3/uL (2.0-8.3); Neutrophils Percent Auto 62.5 % (45-73); Platelet Count 230 X10*3/uL (160-400); Red Cell Distribution Width 16.2 % (11.0-16.0); White Blood Count 4.9 X10*3/uL (4.8-10.8)
[2024-05-07 11:19] LABS: Alanine Aminotransferase 20 U/L (0-40); Albumin Level 3.8 g/dL (3.5-5.0); Alkaline Phosphatase 34 U/L (39-117); Anion Gap 9 (12-20); Aspartate Amino Transferase 37 U/L (5-37); Bilirubin Total 0.6 mg/dL (0.0-1.0); Blood Urea Nitrogen 19 mg/dL (9-16); Calcium 9.4 mg/dL (8.4-10.2); Carbon Dioxide 24 mmol/L (22-29); Chloride 113 mmol/L (96-108); Estimated Glomerular Filt Rate 50; Glucose Random 157 mg/dL (60-115); Phosphorus 2.7 mg/dL (2.7-4.5); Potassium 4.3 mmol/L (3.3-5.1); Sodium 142 mmol/L (135-145); Total Protein 6.3 g/dL (6.5-8.0)
[2024-05-07 11:37] LABS: Vitamin D 25-OH Total 54.2 ng/mL (>30)
[2024-05-07 11:41] LABS: Creatinine Urine 121.31 mg/dL; Protein/Creatinine Ratio, Ur 0.14 (<0.2); Total Protein Urine Random 17 mg/dL (<12)
[2024-05-07 12:14] LABS: Parathyroid Hormone Intact 22.9 pg/mL (8.7-77.1)
== END 2024-05-07 08:24 | disposition home or self-care (01) ==
LOC: HO.HMGCLDS 08:23
PROVIDERS: PCP Nurse Practitioner Family; Referring Provider Internal Medicine Nephrology; Visit Provider Nurse Practitioner Family
DX: N18.32 Chronic kidney disease, stage 3b (principal); E83.42 Hypomagnesemia; I10 Essential (primary) hypertension; E11.9 Type 2 diabetes mellitus without complications
CPT/HCPCS: 36415; 80053; 82306; 82570; 83970; 84100; 84156; 84550; 85025; 96372; J3420

== ENCOUNTER 2024-05-07 08:23 | Outpatient (AMB) | payer MEDICARE, SELFPAY ==
--- NOTE | 2024-05-07 08:44 | AM.OFFVISNUR ---
Intake Visit Reasons: B-12 shot Intake Note: Pt arrived for monthly B-12 injection Allergies No Known Allergies [No Known Allergies*] Allergy (Verified 04/09/24 14:08) Office Meds cyanocobalamin (vitamin B-12) 1,000 mcg/mL injection solution Performing Provider: KLAUDIA Morales Performing Location: [facility] Administered by: Cici Van RN on 05/07/24 08:44 Dose Route Admin Location Dispensed Lot Number Expiration Date [facility] Environmental Research Project Manager 1,000 mcg IM left deltoid 1 mL [id number] 12/14/25 92110-365-06 ANITA GAO Comments: Pt supplied Assessment & Plan Assessment & Plan Orders: Orders AMB Vitamin B12 Injection Patient Supplied Today E53.8 - Deficiency of other specified B group vitamins Medications: New cyanocobalamin (vitamin B-12) 1,000 mcg IM ONCE 1 mL 0RF E53.8 - Deficiency of other specified B group vitamins Coding
--- OUTSIDE RECORDS SUMMARY | 2024-05-07 08:54 | XMS_ITS | Clinical Summary ---
Author Organization [facility] Address [address] [place] [address] Care Team Providers Care Equipment Cleaner Name Role Phone Unavailable Primary Care [...]
--- OUTSIDE RECORDS SUMMARY | 2024-05-07 08:54 | XMS_ITS ---
Author Organization [facility] Address [address] [place] [address] Care Team Providers Care Pipe Straightener Name Role Phone TOMMY CHAPIN Primary Care Provider Kris Tate [phone] Encounters Encounter Location Date Provider Diagnosis [facility] [address] [place] [address] 01/04/2024 Kris Infante Plan Of Treatment Next Appt Details Provider Name:Kris Infante , 04/24/2025 10:00:00 AM, [address], [address], [place], [address], Progress Notes * KRIS COLEMAN LDOB:[birth year] (83 yo M)Acc No.[id number]:01/04/2024 Patient:?KRIS COLEMAN :1940???Age:83 Y???Sex:Male Address:[address] [place] [address], [address] * true * Date:? Generated for Printi ng/Faxing/eTransmitting on:?05/07/2024 08:54 AM EDT
--- OUTSIDE RECORDS SUMMARY | 2024-05-07 08:54 | XMS_ITS ---
Author Organization [facility] Address [address] [facility] [place] [address] Care Team Providers Care Program Manager Transportation Name Role Phone Cristhian Garcia Primary Care Provider Unav ailable Black, Estela Unavailable [phone] Allergies No Known Allergies REASON FOR VISIT [...] Ordered Date Performed Result Body Sit e 45304-YWPK SKIN LESIONS, 2 TO 4 03/07/2024 N/A 63826-YAHI NAIL(S) 03/07/2024 N/A Encounters Encounter Location Date Provider Diagnosis [facility] [address] [place] [address] 03/07/2024 Estela Bell Type 2 diabetes mellitus [...] days Pending Test Test Name Order Date 07920-ZPMQ SKIN LESIONS, 2 TO 4 03/07/19 86445-JDRC NAIL(S) 03/07/2024 Next Appt Details Follow Up: prn, Reason: Provider Name:Estela Bell , 09/05/2024 09:00:00 AM, [address] [place] [address], [address], Procedure Notes * Category Sub-Category Detail Notes [...] instrumentation by the physician of record - 67038 Nail Reduction Nail Reduction (-19) Trimming o [...] healthy nail plate or bed tissue - 46662 Progress Notes * Larry COLEMAN LDOB:[birth year] (83 yo M)Acc No.[id number]:03/07/2024 Progress Note Patient:?Larry COLEMAN Provider:?Estela Bell DPM :1940???Age:83 Y???Sex:Male Antolin e:03/07/2024 Address:[address] [place], [place] [address] Pcp:TUSHAR Jiang Subjective: * Chief Complaints: * [...] instrumentation by the physician of record - 59643.?Nail Reduction:?Nail Reduction?(-19) Trimming of all non-dystrophic nails [...] healthy nail plate or bed tissue - 79197.? * Procedure Codes:?85045 TRIM SKIN LESIONS, 2 TO 4, Modifiers: XS 39631 TRIM NAIL(S), Modifiers: XS * Preventive Medicine:? [...] Provider:?Estela Bell DPM Date:?2024 Generated for Hector martinez/Eliud/Annemariesmitting on:?05/07/2024 08:54 AM EDT History and Physical Notes * HPI (History of Present Illness) Category Sub-Category Detail Notes Category Not es Skin problems Nature: dryness , scaling Location: B/L Duration: several days Course: worse At Risk footcare Pt States Last PCP Visit: Date: Examination Category Sub-Category Detail Notes Category Not [...]
--- OUTSIDE RECORDS SUMMARY | 2024-05-07 08:54 | XMS_ITS ---
Author Organization [facility] Address [address] [place] [address] Care Team Providers Care Marble Ceiling Installer Name Role Phone JAVIDAnabela TOMMY Primary Care Provider Kris Tate Unavailable [phone] Allergies No Known Allergies REASON FOR VISIT Patient presents today for anemia Medications Medication SIG (Take, Route, Frequency, Duration) Notes Start Date End Date Status Pioglitazone HCl 30 MG 1 tablet Oral Once a day Active traZODone HCl 50 MG as directed Oral Once a day Active Fenofibrate 160 MG 1 tablet Oral Once a day Active dilTIAZem HCl ER Coated Beads 240 MG 1 tablet Oral Once a day Active Atorvastatin Calcium 40 MG 1 tablet Oral Once a day Active Magnesium 200 MG 1 tablet with a meal Orally Twice a day Active Vitamin D3 Active Ondansetron HCl 4 MG 1 tablet Oral Once a day Active metFORMIN HCl ER 500 MG 1 tablet with evening meal Oral Once a day Active Citrucel 500 MG as directed Orally as directed Active Omeprazole 40 MG TAKE 1 CAPSULE BY MOUTH EVERY MORNING for 30 Active Aspirin 81 81 MG 1 tablet Orally Once a day for 30 day(s) Active Vitamin B12 INJECTIONS MONTHLY Active Famotidine 40 MG 1 tablet at bedtime as needed Oral Once a day Not-Taking Nasal Ceres 0.05 % 4 sprays (2 sprays in each nostril) Nasally Twice a day for 3 day(s) Not-Taking Readi-Cat 2 2 % 1 450ml bottle [address] and then 1 450ml bottle [address] Orally 2 bottles as directed for 1 days 11/19/2023 Active Famotidine 40 MG 1 Orally Twice a day for 30 days 04/20/2023 Active Social History Tobacco Use: Social History Observation Description Date Details (start date - stop date) Former Smoker NA - NA Tobacco Use/Smoking Question Answer Notes Patient is a former smoker How long has it been since you last smoked? > 10 years Alcohol Screen Question Answer Notes Did you have a drink containing alcohol in the p ast year? No Points 0 Interpretation Negative Section Notes: Nonsmoker x 10 years; occ al cohol Vital Signs Blood pressure systolic 111 mm Hg 04/24/19 25 Blood pressure diastolic 11 mm Hg 025 Height 67 in 04/23/2024 Weight 162 lbs 04/23/2024 BMI 25.37 kg/m2 04/23/2024 Encounters Encounter Location Date Provider Diagnosis [facility] [address] [place] [address] 04/23/2024 Kris Infante Diverticulitis of sm all intestine with perforation and abscess without bleeding K57.00 Assessments Encounter Date Diagnosis (ICD Code) Assessment Notes Treatment Notes Treatment Clinical Notes Section Notes 04/23/2024 Diverticulitis of small intestine with perforation and abscess without bleeding (ICD-10 - K57.00) Use Ensure or Boost i .Overall, Mihai continues to remain quite stable and clinically improved. He has now been off antibiotics since the summer 2023 and is doing quite well. He has had no symptoms nor signs to suggest recurrent diverticulitis of the small bowel. He appears quite well from a nutritional standpoint and is not having any new or worrisome GI complaints. His most recent CT scan and laboratories from December are all quite reassuring. I did review all of this in detail with him and his today. I do not think any further diagnostic testing or treatment is indicated at this time. As long as things are stable I will plan to see him in 1 year for a follow-up office visit. However, I did advise them to certainly call me in the interim if he has any problems or questions I can be of assistance with. Mihai and his were very comfortable with this plan. Thank you again for allowing me to participate in Mihai's care. I shall continue to keep you advised of his progress. Plan Of Treatment Treatment Notes Assessment Notes Diverticulitis of small inte latesha with perforation and abscess without bleeding Use Ensure or Boost i Next Appt Details Provider Name:Kris Infante , 04/24/2025 10:00:00 AM, [address], [address], [place], [address], Progress Notes * KRIS COLEMAN LDOB:[birth year] (84 yo M)Acc No.[id number]:04/23/2024 Progress Notes Patient:?KRIS COLEMAN Provider:?Kris Infante MD :1940???Age:84 Y???Sex:Male Antolin e:04/23/2024 Address:[address] [place], [place] [id number] Pcp:TOMMY CHAPIN Subjective: * Chief Complaints: * ???1. Patient presents today for anemia. * HPI: ???incontinence:? .I saw Mihai in follow-up today in regard to his history of small bowel diverticulitis. He was accompanied by his . Since I last saw Mihai in October 2023 he has been feeling well from a GI standpoint. He has been off antibiotics since the summer 2023. He has had no recurrence of abdominal pain, fevers, nor weight loss. He has been eating comfortably and denies any significant heartburn or dysphagia. He denies any nausea, vomiting, nor early satiety. For the most part his bowel movements have been regular other than occasional loose stools. There has been no signs of bleeding. His weight has been stable since he was here last October. He did have a follow-up CT scan of the abdomen in December 2023 which described some slight chronic changes within the small bowel but without any sign of active infection such as abscesses as had been seen previously when he had the active small bowel diverticulitis. Laboratories at that time revealed a stable hemoglobin of 11.6 with a normal MCV, normal LFTs, and normal iron studies with an iron saturation of 23% and ferritin of 53. * Medical History:?Kidney ston es , COPD, Prostate cancer, NIDDM, Hypertension, Denies FL,CVA,Lung disease,renal disease, Negative colonoscopy > 10 years ago with CATRACHO Walsh 12/2019--not hospitalized, EGD in 12/2021 with only a small hiatal hernia. 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 Soler, at [facility]. He felt this presented more of a chronic issue as opposed to an acute problem., Inflammation and small abscesses in the region of the small bowel seen on the CT scan during the workup for the abdominal pain in April of 2023. This was treated with IV and subsequent oral antibiotics at [facility]. There was the finding of multiple small bowel diverticuli and was felt that the abdominal pain and inflammation was as a result of diverticulitis of the small bowel, Followup CT scan of the abdomen on June 13, 2023 revealed much improvement in regard to the previous small bowel inflammation and abscesses.. A CT scan in December 2023 also appeared quite stable and improved.. * Surgical History:?Left carot id , Bilateral LE vascular procedures . * Family History:?Father: dece ased.?Mother: , diagnosed with Diabetes.?Siblings: brother, diagnosed with Heart disease.? No known hx of colon cancer. * Social History:?Tobacco Use:?Tobacco Use/Smoking?Patient is a?former smoker,?How long has it been since you last smoked??> 10 years.?Drugs/Alcohol:?Alcohol Screen?Did you have a drink containing alcohol in the past year??No,?Points?0,?Interpretation?Negative.?Nonsmoker x 10 years; occ alcohol. * Medications:?Taking Vitamin B12 , Notes to Pharmacist: INJECTIONS MONTHLY, Taking Aspirin 81 81 MG Tablet Delayed Release 1 tablet Orally Once a day , Taking Vitamin D3 , Taking Magnesium 200 MG Tablet 1 tablet with a meal Orally Twice a day , Taking Citrucel 500 MG Tablet as directed Orally as directed , Taking metFORMIN HCl ER 500 MG Tablet Extended Release 24 Hour 1 tablet with evening meal Oral Once a day , Taking Ondansetron HCl 4 MG Tablet 1 tablet Oral Once a day , Taking Atorvastatin Calcium 40 MG Tablet 1 tablet Oral Once a day , Taking dilTIAZem HCl ER Coated Beads 240 MG Capsule Extended Release 24 Hour 1 tablet Oral Once a day , Taking Fenofibrate 160 MG Tablet 1 tablet Oral Once a day , Taking traZODone HCl 50 MG Tablet as directed Oral Once a day , Taking Pioglitazone HCl 30 MG Tablet 1 tablet Oral Once a day , Taking Famotidine 40 MG Tablet 1 Orally Twice a day , Taking Readi-Cat 2 2 % Suspension 1 450ml bottle [address] then 1 450ml bottle [address] Orally 2 bottles as directed , Taking Omeprazole 40 MG Capsule Delayed Release TAKE 1 CAPSULE BY MOUTH EVERY MORNING , Not-Taking/PRN Nasal Ceres 0.05 % Solution 4 sprays (2 sprays in each nostril) Nasally Twice a day , Not-Taking/PRN Famotidine 40 MG Tablet 1 tablet at bedtime as needed Oral Once a day , Medication List reviewed and reconciled with the patient * Allergies:?N.K.D.A. Objective: * Vitals:?Wt:162lbs, Ht: 67 in , BMI:25.37Index, BP:111/11mm Hg, Wt-k.48. Assessment: * Assessment: 1.?Diverticulitis of small i ntestine with perforation and abscess without bleeding - K57.00 (Primary)??? .Overall, Mihai continues to r emain quite stable and clinically improved. He has now been off antibiotics since the summer 2023 and is doing quite well. He has had no symptoms nor signs to suggest recurrent diverticulitis of the small bowel. He appears quite well from a nutritional standpoint and is not having any new or worrisome GI complaints. His most recent CT scan and laboratories from December are all quite reassuring. I did review all of this in detail with him and his today. I do not think any further diagnostic testing or treatment is indicated at this time. As long as things are stable I will plan to see him in 1 year for a follow-up office visit. However, I did advise them to certainly call me in the interim if he has any problems or questions I can be of assistance with. Mihai and his were very comfortable with this plan. Thank you again for allowing me to participate in Mihai's care. I shall continue to keep you advised of his progress. Plan: * Treatment: * Preventive Medicine:? ??Screenings:?Fall Risk Screening?Fall Risk Assessment:?No falls in the past year,?Screening:?No falls in the past year,?Assessment:?Not performed, no reason specified,?Plan of Care:?Not documented, no reason specified.? * * The named appointment provid er may or may not be the originator of this progress note, and it is not deemed complete until electronically signed by the appointment provider. Sign off status: Pending * Provider:?Kris Infante MD Date:? 025 Generated for Hector martinez/Eliud/Mariam on:?05/07/2024 08:54 AM EDT
--- OUTSIDE RECORDS SUMMARY | 2024-05-07 08:55 | XMS_ITS ---
Author Organization [facility] Address [address] [place] [address] Care Team Providers Care Reception Manager Name Role Phone Cristhian Garcia Primary Care Provider Unav ailable Black, Estela Unavailable [phone] Allergies No Known Allergies REASON FOR VISIT [...] Ordered Date Performed Result Body Sit e 49834-GSCC SKIN LESIONS, 2 TO 4 08/31/2023 N/A 26910-ZLSB NAIL(S) 08/31/2023 N/A Encounters Encounter Location Date Provider Diagnosis [facility] [place] [address] [place] [address] 08/31/2023 Estela Ray Type 2 diabetes mellitus with diabetic polyneuropathy E11.42 Assessments Encounter Date Diagnosis (ICD Code) Assessment Notes Treatment Notes Treatment Clinical Notes Section Notes 08/31/2023 Type 2 diabetes mellitus with diabetic polyneuropathy (ICD-10 - E11.42) Plan Of Treatment Pending Test Test Name Order Date 35469-EVDX SKIN LESIONS, 2 TO 4 08/31/19 72285-HQPJ NAIL(S) 08/31/2023 Next Appt Details Follow Up: prn, Reason: Provider Name:Estela Moran Ray , 09/05/2024 09:00:00 AM, [address] [place] [address], [phone], Procedure Notes * Category Sub-Category Detail Notes Keratoma Treatment Parring or Cutting o f Benign Hyperkeratotic Lesion(s) 27624 (2-4 Lesions) - The Benign hyperkeratotic lesions, as described above were pared, and/or cut utilizing a sterile #15 blade, tissue nippers, and/or dremel Nail Reduction Nail Reduction Trimming of non- dystrophic nails performed to reduce/remove overall nail length and girth, by manual and electrical means with use of a nail nipper and/or dremel, to more viable healthy nail plate or bed tissue 6-10 (45633) Progress Notes * Larry COLEMAN LDOB:[birth year] (83 yo M)Acc No.[id number]:08/31/2023 Progress Note Patient:?Larry COLEMAN Provider:?Estela Bell DPM :1940???Age:83 Y???Sex:Male Antolin e:08/31/2023 [place] Pcp:TUSHAR Jiang Subjective: * Chief Complaints: [...] Procedures:?Keratoma Treatment:?Parring or Cutting of Benign Hyperkeratotic Lesion(s)?15641 (2-4 Lesions) - The Benign hyperkeratotic lesions, as described above were pared, and/or cut utilizing a sterile #15 blade, tissue nippers, and/or dremel.?Nail Reduction:?Nail Reduction?Trimming of non-dystrophic nails performed to reduce/remove overall nail length and girth, by manual and electrical means with use of a nail nipper and/or dremel, to more viable healthy nail plate or bed tissue 6-10 (07231).? * Procedure Codes:?85096 TRIM SKIN LESIONS, 2 TO 4, Modifiers: XS 42130 TRIM NAIL(S), Modifiers: XS * Follow Up:?prn * Images: * Sign off status: Completed true * Provider:?Estela Bell DPM Date:?2023 Generated for Hector martinez/Eliud/Rebeccaitting on:?05/07/2024 08:54 AM EDT History and Physical [...]
--- OUTSIDE RECORDS SUMMARY | 2024-05-07 08:55 | XMS_ITS ---
Author Organization [facility] Address [address] [facility] [place] [address] Care Team Providers Care Globe Changer Name Role Phone Cristhian Garcia Primary Care Provider Unav ailable Black, Estela Unavailable [phone] Allergies No Known Allergies REASON FOR VISIT [...] Ordered Date Performed Result Body Sit e 19622-TIAE SKIN LESIONS, 2 TO 4 03/02/2023 N/A 95212-WWPQ NAIL(S) 03/02/2023 N/A Encounters Encounter Location Date Provider Diagnosis [facility] [address] [address] 03/02/2023 Estela Bell Type 2 diabetes mellitus with diabetic polyneuropathy E11.42 Assessments Encounter Date Diagnosis (ICD Code) Assessment Notes Treatment Notes Treatment Clinical Notes Section Notes 03/02/2023 Type 2 diabetes mellitus with diabetic polyneuropathy (ICD-10 - E11.42) 03/02/2023 Other Plan Of Treatment Pending Test Test Name Order Date 08276-DOSE SKIN LESIONS, 2 TO 4 03/02/19 17400-CYNQ NAIL(S) 03/02/2023 Next Appt Details Follow Up: prn, Reason: Provider Name:Estela Bell , 09/05/2024 09:00:00 AM, [address] [place] [address], [phone], Procedure Notes * Category Sub-Category Detail Notes Keratoma Treatment Parring or Cutting o f Benign Hyperkeratotic Lesion(s) 98173 (2-4 Lesions) - The Benign hyperkeratotic lesions, as described above were pared, and/or cut utilizing a sterile #15 blade, tissue nippers, and/or dremel Nail Reduction Nail Reduction Trimming of non- dystrophic nails performed to reduce/remove overall nail length and girth, by manual and electrical means with use of a nail nipper and/or dremel, to more viable healthy nail plate or bed tissue 6-10 (45647) Progress Notes * Larry COLEMAN LDOB:[birth year] (82 yo M)Acc No.[id number]:03/02/2023 Progress Note Patient:?Larry Coleman Provider:?Estela Bell DPM :1940???Age:82 Y???Sex:Male Antolin e:03/02/2023 Address:[address] [place], [place] [address] Pcp:TUSHAR Jiang Subjective: * Chief Complaints: * [...] Procedures:?Keratoma Treatment:?Parring or Cutting of Benign Hyperkeratotic Lesion(s)?52323 (2-4 Lesions) - The Benign hyperkeratotic lesions, as described above were pared, and/or cut utilizing a sterile #15 blade, tissue nippers, and/or dremel.?Nail Reduction:?Nail Reduction?Trimming of non-dystrophic nails performed to reduce/remove overall nail length and girth, by manual and electrical means with use of a nail nipper and/or dremel, to more viable healthy nail plate or bed tissue 6-10 (94081).? * Procedure Codes:?45910 TRIM SKIN LESIONS, 2 TO 4, Modifiers: XS 54542 TRIM NAIL(S), Modifiers: XS * Follow Up:?prn * Images: * Sign off status: Completed true * Provider:?Estela Bell DPM Date:?2023 Generated for Hector martinez/Eliud/Mariam on:?05/07/2024 08:54 AM EDT History and Physical [...]
--- OUTSIDE RECORDS SUMMARY | 2024-05-07 08:55 | XMS_ITS | Patient Health Record ---
Author Organization [facility] Address [address] [facility] [place] [address] Care Team Providers Care Chemist Physical Name Role Phone Cristhian Garcia Primary Care Provider Unav ailable Black, Estela Unavailable [phone] Allergies No Known Allergies Reason For Referral [...] Problem Acquired hammer toe of right foot (7780928192950859 ) Other hammer toe(s) (acquired), right foot (M20.41) Active confirmed Problem Acquired hammer toe of left foot (9422396558626729 ) Other hammer toe(s) (acquired), left foot (M20.42) Active confirmed Problem Polyneuropathy due to type 2 diabetes mellitus (516055725) Type 2 diabetes mellitus with diabetic polyneuropathy (E11.42) Active confirmed Vital Signs Blood pressure diastolic 70 mm Hg 03/07/2024 Height 5 ft 6 in in 03/07/2024 Blood pressure systolic 120 mm Hg 03/07/2024 Weight 140 lbs 03/07/2024 BMI 22.59 kg/m2 03/07/2024 Procedures Procedure Date Ordered Date Performed Result Body Sit e 73499-WEAC SKIN LESIONS, 2 TO 4 08/31/2023 N/A 29094-FYRA NAIL(S) 08/31/2023 N/A 03139-HMUK SKIN LESIONS, 2 TO 4 03/07/2024 N/A 14708-BBRG NAIL(S) 03/07/2024 N/A Encounters Encounter Location Date Provider Diagnosis [facility] [address] [address] 08/31/2023 Estela Black Type 2 diabetes mellitus with diabetic polyneuropathy E11.42 [facility] [address] [address] 03/07/2024 Estela Black Type 2 diabetes mellitus [...] Treatment Pending Test Test Name Order Date 41904-MAKL SKIN LESIONS, OVER 4 12/07/19 11 37485-TVDF SKIN LESIONS, OVER 4 06/26/19 13 33249-RHNK SKIN LESIONS, OVER 4 01/01/20 13 59436-PBOP SKIN LESIONS, OVER 4 07/26/19 14 68552-KJOG SKIN LESIONS, OVER 4 01/16/20 14 86482-YBBO SKIN LESIONS, OVER 4 07/17/19 15 13023-IEGN SKIN LESIONS, 2 TO 4 01/15/20 15 97448-LZJS SKIN LESIONS, 2 TO 4 12/22/19 12 81047-UMOI SKIN LESIONS, 2 TO 4 06/20/19 12 54138-DKYD SKIN LESIONS, 2 TO 4 07/20/19 16 41301-WWVE SKIN LESIONS, 2 TO 4 01/18/20 16 58552-FOLO SKIN LESIONS, 2 TO 4 07/19/19 17 87971-JPWV SKIN LESIONS, 2 TO 4 01/24/20 17 34923-OOQE SKIN LESIONS, 2 TO 4 01/16/20 18 85905-ZGIK SKIN LESIONS, 2 TO 4 08/21/19 19 11623-QAZP SKIN LESIONS, 2 TO 4 02/25/19 20 23862-HGBZ SKIN LESIONS, 2 TO 4 08/08/19 20 10936-BOUD SKIN LESIONS, 2 TO 4 02/03/20 20 80191-DNVQ SKIN LESIONS, 2 TO 4 07/21/19 21 44734-VLGA SKIN LESIONS, 2 TO 4 02/22/19 22 64317-MPNJ SKIN LESIONS, 2 TO 4 08/31/19 22 42468-VECO SKIN LESIONS, 2 TO 4 02/24/19 23 52344-ECGM SKIN LESIONS, 2 TO 4 08/26/19 23 87208-YOML SKIN LESIONS, 2 TO 4 03/02/19 24 76849-HOMP SKIN LESIONS, 2 TO 4 08/31/19 24 01671-EQLA SKIN LESIONS, 2 TO 4 03/07/19 25 36455-LBNQ NAIL(S) 03/07/2024 44800-HWYV NAIL(S) 08/31/2023 02779-ZBAF NAIL(S) 03/02/2023 28524-ERLP NAIL(S) 08/25/2022 89594-RBXA NAIL(S) 02/24/2022 81662-ETIU NAIL(S) 08/30/2021 69701-SRIP NAIL(S) 02/22/2021 18664-ACHR NAIL(S) 07/20/2020 09678-SYJF NAIL(S) 02/03/2020 58673-FSVB NAIL(S) 08/08/2019 09815-DTFQ NAIL(S) 02/25/2019 75848-NLLZ NAIL(S) 08/20/2018 01017-XGCD NAIL(S) 01/15/2018 65409-NYTK NAIL(S) 07/18/2016 81842-JJAS NAIL(S) 01/18/2016 29016-PDKJ NAIL(S) 07/20/2015 74351-JROL NAIL(S) 12/22/2011 48393-BXFH NAIL(S) 12/06/2010 29795-AZLT NAIL(S) 06/20/2011 05417-BGMC NAIL(S) 06/25/2012 65015-MUPV NAIL(S) 12/31/2012 17900-XWAY NAIL(S) 01/14/2015 13266-RJVB NAIL(S) 07/16/2014 06479-VFZZ NAIL(S) 01/15/2014 99410-DWHS NAIL(S) 07/25/2013 N8444-QMZVHPPA DYSTROPHIC NAILS ANY # Next Appt Details Provider Name:Estela Bell , 09/05/2024 09:00:00 AM, [address] [place], [address], Insurance Providers Payer Name Payer Address Payer Phone Subscriber Number Group Number Insured Name Patient Relationship to Insured Coverage Start Date Coverage End Date Medicare [employer] [facility] [address] [place] [address] [id number] Larry Pichardo Self - patient is the insured [employer] [address] [place] [address] [phone] [id number] Larry Pichardo Self - patient is the insured Medical (General) History Medical History History ICD Code mumps measles hypertension diabetic chicken pox cancer Cholesterol Surgical History Surgery Date(Month/Year) opened artery 08/08/2018 cataract surgery
--- OUTSIDE RECORDS SUMMARY | 2024-05-07 08:55 | XMS_ITS | Clinical Summary ---
Author Organization [facility] Address [address] [address] Phone Care Team Providers Care Real Estate Executive Assistant Name Role Phone Cristhian Durán NP Primary Care Provider [phone] Allergies No known active allergies Medications atorvastatin [...] Team (Late st Contact Info) Description 05/16/2024 Orders Only [facility] [address] [address] Hawk Aiken MD [facility] [address] Stage 3b chronic kidney disease (HCC); Hypomagnesemia; Hypertension; Diabetes mellitus, not otherwise specified (HCC) 05/16/2024 10:20 AM EDT Office Visit [facility] [address] [address] Hawk Aiken MD [facility] [address] [address] Health Maintenance Due Date Last Done Comments [...] age to complete this topic Insurance MEDICARE [facility] [phone] [facility] Care Teams Real Estate Executive Assistant Relationship Specialty Start Date End Date Cristhian Durán NP [facility] [place], [place] [phone] PCP - General Nurse Practitioner 02/16/22
--- OUTSIDE RECORDS SUMMARY | 2024-05-07 08:55 | XMS_ITS ---
Author Organization [facility] Address [address] [place] [address] Care Team Providers Care Produce Weigher Name Role Phone TOMMY CHAPIN Primary Care Provider Kris Tate [phone] Encounters Encounter Location Date Provider Diagnosis [facility] [address] [place] [address] 12/21/2023 Kris Infante Plan Of Treatment Next Appt Details Provider Name:Kris Infante , 04/24/2025 10:00:00 AM, [address], [address], [place], [address], Progress Notes * KRIS COLEMAN LDOB:[birth year] (83 yo M)Acc No.[id number]:12/21/2023 Patient:?KRIS COLEMAN :1940???Age:83 Y???Sex:Male Address:[address] [place] [address], [address] * true * Date:? Generated for Printi juan/Eliud/eTransmitting on:?05/07/2024 08:55 AM EDT
== END 2024-05-07 08:43 | disposition home or self-care (01) ==
LOC: HO.HMCC 08:24
PROVIDERS: PCP Nurse Practitioner Family; Visit Provider Nurse Practitioner Family
DX: E53.8 Deficiency of other specified B group vitamins (principal)

== ENCOUNTER 2024-05-31 08:38 | Outpatient (REF) | payer MEDICARE, SELFPAY ==
--- NOTE | ~2024-05-31 | CT_ITS ---
EXAMINATION: CT ABDOMEN PELVIS ADRENALS WITHOUT THEN WITH IV CONTRAST HISTORY: E27.8 - Other specified disorders of adrenal gland COMPARISON: None. TECHNIQUE: CT scan of the abdomen was performed before and after the intravenous administration of 85 mL Omnipaque 350. Postcontrast images were obtained through the adrenal glands in the portal venous and delayed phases to calculate adrenal washout. Coronal and sagittal reformatted images were generated and reviewed. Oral contrast material was not administered per department protocol. This CT exam was performed with one or more of the following dose reduction techniques: automated exposure control, adjustment of the mA and/or kV according to patient size, use of iterative reconstruction technique. DLP: 337 mGy-cm ABDOMEN: LOWER CHEST: The visualized lung bases are clear. There is no pleural effusion. CARDIOVASCULATURE: The heart is normal in size. There is no pericardial effusion. LIVER: The liver is normal in size and contour. There are subcentimeter hypodensities in the liver which likely represent cysts, but are too small to accurately characterize. The hepatic and portal veins are patent. GALLBLADDER / BILE DUCTS: The gallbladder is unremarkable. There is no intra or extrahepatic biliary ductal dilatation. SPLEEN: The spleen is normal in size. No focal splenic lesion is identified. PANCREAS: The pancreas is unremarkable in appearance. ADRENAL GLANDS: There is a 1.5 cm adrenal nodule which measures 19.9 HU on the precontrast examination, 72.3 HU on the immediate postcontrast series, and 37.6 HU on the delayed images. This calculates to a 48.0% relative washout and a 66.2% absolute washout, consistent with an adenoma. There is a 1.8 cm left adrenal nodule which measures 14.4 HU on the unenhanced examination, 67.1 HU on the immediate postcontrast series, and 39.9 HU on the delayed images. This calculates to a relative washout of 40.5% and absolute washout of 51.6%. These findings are highly suggestive of an adenoma. KIDNEYS/RETROPERITONEUM: No renal calculi are identified. There is no hydronephrosis. There is a 2.7 cm cyst in the interpolar region of the right kidney. Multiple left renal cysts are noted including a 2.4 cm upper pole cyst and a 2.1 cm lower pole cyst. LYMPH NODES: No abdominal or pelvic lymphadenopathy. VASCULATURE: The abdominal aorta demonstrates atherosclerotic calcification, but is normal in caliber. MESENTERY/PERITONEUM: No free fluid. No masses. There is no free intraperitoneal gas. STOMACH: The stomach is collapsed, limiting evaluation. SMALL BOWEL: The visualized small bowel is normal in caliber. COLON: The visualized portion of the colon is unremarkable. BONES / SOFT TISSUES: No suspicious bony or soft tissue abnormalities. CT/CT adrenal wo/w IV con IMPRESSION: 1.5 cm right adrenal nodule, with washout characteristics consistent with an adenoma. 1.8 cm left adrenal nodule, with washout characteristics highly suggestive of an adenoma. Electronically signed by: Larry Santos MD 05/31/2024 09:39 AM EDT
--- OUTSIDE RECORDS SUMMARY | 2024-05-31 08:59 | XMS_ITS ---
Author Organization [facility] Address [address] [place] [address] Care Team Providers Care Portable Power Tool Repairer Name Role Phone JAVIDAnabela TOMMY Primary Care Provider Kris Tate Unavailable [phone] Allergies No Known Allergies REASON FOR VISIT [...] needed Oral Once a day Not-Taking Nasal Cushing 0.05 % 4 sprays (2 sprays in [...] 04/23/2024 Encounters Encounter Location Date Provider Diagnosis [facility] [address] [place] [address] 04/23/2024 Kris Infante Diverticulitis of sm all [...] Ensure or Boost i Next Appt Details Follow Up: 1 Year, Reason: Provider Name:Kris Infante , 04/24/2025 10:00:00 AM, [address] [facility] [address] [facility], [address], [place], [address], Progress Notes * KRIS COLEMAN LDOB:[birth year] (84 yo M)Acc No.[id number]:04/23/2024 Progress Notes Patient:KRIS GIRON Provider:?Kris Infante MD :1940???Age:84 Y???Sex:Male Antolin e:04/23/2024 Address:[address] [place] [address] Pcp:TOMMY CHAPIN Subjective: * Chief Complaints: * ???Patient presents today fo r anemia * HPI: ???incontinence:? .I saw Mihai in [...] of 23% and ferritin of 53. * ROS:?General/Constitutional:?Change in appetite?denies.?Chills?denies.?Fatigue??admits.?Ophthalmologic:?Comments?all negative.?ENT:?Comments?all negative.?Respiratory:?hemoptysis?denies.?Cough?denies.?Cardiovascular:?Chest pain?denies.?Orthopnea?denies.?Gastrointestinal:?Comments?See HPI for details.?Genitourinary:?Hematuria?denies.?Dysuria?denies.?Musculoskeletal:?Painful joints?denies.?Weakness?denies.?Skin:?Itching?denies.?Rash?denies.?Neurologic:?Headache?denies.?Seizures?denies.?Psychiatric:?Comments?all negative.? * Medical History:? * Surgical History:?Left carot id Bilateral LE vascular procedures * Hospitalization/Major Diagno stic Procedure:?No Hospitalization History. * Family History:?Father: dece ased.?Mother: , diagnosed with Diabetes.?Siblings: brother, diagnosed with Heart disease.? No known hx of colon cancer. * Social History:?Tobacco Use:?Tobacco Use/Smoking?Patient is a?former smoker,?How long has it been since you last smoked??> 10 years.?Drugs/Alcohol:?Alcohol Screen?Did you have a drink containing alcohol in the past year??No,?Points?0,?Interpretation?Negative.?Nonsmoker x 10 years; occ alcohol. * Medications:?TakingVitamin B 12 , Notes to Pharmacist: INJECTIONS MONTHLYAspirin 81 81 MG Tablet Delayed Release 1 tablet Orally Once a day Vitamin D3 Magnesium 200 MG Tablet 1 tablet with a meal Orally Twice a day Citrucel 500 MG Tablet as directed Orally as directed metFORMIN HCl ER 500 MG Tablet Extended Release 24 Hour 1 tablet with evening meal Oral Once a day Ondansetron HCl 4 MG Tablet 1 tablet Oral Once a day Atorvastatin Calcium 40 MG Tablet 1 tablet Oral Once a day dilTIAZem HCl ER Coated Beads 240 MG Capsule Extended Release 24 Hour 1 tablet Oral Once a day Fenofibrate 160 MG Tablet 1 tablet Oral Once a day traZODone HCl 50 MG Tablet as directed Oral Once a day Pioglitazone HCl 30 MG Tablet 1 tablet Oral Once a day Famotidine 40 MG Tablet 1 Orally Twice a day Readi-Cat 2 2 % Suspension 1 450ml bottle [address] and then 1 450ml bottle [address] Orally 2 bottles as directed Omeprazole 40 MG Capsule Delayed Release TAKE 1 CAPSULE BY MOUTH EVERY MORNING Taking Vitamin B12 , Notes to Pharmacist: INJECTIONS MONTHLYTaking Aspirin 81 81 MG Tablet Delayed Release 1 tablet Orally Once a day Taking Vitamin D3 Taking Magnesium 200 MG Tablet 1 tablet with a meal Orally Twice a day Taking Citrucel 500 MG Tablet as directed Orally as directed Taking metFORMIN HCl ER 500 MG Tablet Extended Release 24 Hour 1 tablet with evening meal Oral Once a day Taking Ondansetron HCl 4 MG Tablet 1 tablet Oral Once a day Taking Atorvastatin Calcium 40 MG Tablet 1 tablet Oral Once a day Taking dilTIAZem HCl ER Coated Beads 240 MG Capsule Extended Release 24 Hour 1 tablet Oral Once a day Taking Fenofibrate 160 MG Tablet 1 tablet Oral Once a day Taking traZODone HCl 50 MG Tablet as directed Oral Once a day Taking Pioglitazone HCl 30 MG Tablet 1 tablet Oral Once a day Taking Famotidine 40 MG Tablet 1 Orally Twice a day Taking Readi-Cat 2 2 % Suspension 1 450ml bottle [address] and then 1 450ml bottle [address] Orally 2 bottles as directed Taking Omeprazole 40 MG Capsule Delayed Release TAKE 1 CAPSULE BY MOUTH EVERY MORNING Not-Taking/PRNNasal Cushing 0.05 % Solution 4 sprays (2 sprays in each nostril) Nasally Twice a day Famotidine 40 MG Tablet 1 tablet at bedtime as needed Oral Once a day Medication List reviewed and reconciled with the patientNot-Taking/PRN Nasal Cushing 0.05 % Solution 4 sprays (2 sprays in each nostril) Nasally Twice a day Not-Taking/PRN Famotidine 40 MG Tablet 1 tablet at bedtime as needed Oral Once a day Medication List reviewed and reconciled with the patient * Allergies:?N.K.D.A.yes[Aller gies Verified] Objective: * Vitals:?Wt:162lbs, Ht: 67 in , BMI:25.37Index, BP:111/11mm Hg, Wt-k.48. * Examination: ???General Examination: ?GENERAL APPEARANCE:?pleasant, well nourished, well developed, in no acute distress.?EYES:?sclera non-icteric.?ORAL CAVITY:?mucosa moist.?NECK/THYROID:?no cervical lymphadenopathy, neck supple.?SKIN:?nonjaundiced, no spider angiomata.?HEART:?S1, S2 normal.?LUNGS:?clear to auscultation bilaterally.?ABDOMEN:?normal bowel sounds, no guarding or rigidity, no guarding or rigidity, no masses palpable, soft, nontender, nondistended.?EXTREMITIES:?no edema.?NEUROLOGIC:?alert and oriented.? Assessment: * Assessment: 1.?Diverticulitis of small i [...] of his progress. Plan: * Treatment: * Procedure Codes:?1036F TOBAC CO NON-QOVLN6675 BP SCR NOT PRFRM REC REASON NOS * Preventive Medicine:? ??Screenings:?Fall Risk Screening?Fall Risk Assessment:?No falls in the past year,?Screening:?No falls in the past year,?Assessment:?Not performed, no reason specified,?Plan of Care:?Not documented, no reason specified.? * Follow Up:?1 Year * * Sign off status: Completed true * Provider:?Kris Infante MD Date:? 025 Generated for Printi juan/Eliud/eTransmitting on:?05/31/2024 08:59 AM EDT History and Physical Notes * Examination Category Sub-Category Detail Notes Category Not es General Examination GENERAL APPEARANCE: pleasant , well nourished, well developed, in no acute distress HEAD: EYES: sclera non-icteric EARS: NOSE: THROAT: NECK/THYROID: no cervical lymphade nopathy, neck supple HEART: S1, S2 normal CHEST: LUNGS: clear to auscultatio n bilaterally ABDOMEN: normal bowel sounds, no guarding or rigidity, no guarding or rigidity, no masses palpable, soft, nontender, nondistended NEUROLOGIC: alert and oriented SKIN: nonjaundiced, no spi gavi angiomata EXTREMITIES: no edema PERIPHERAL PULSES: BACK: BREASTS: MUSCULOSKELETAL: MALE GENITOURINARY: LYMPH NODES: RECTAL EXAM: FEMALE GENITOURINARY: ORAL CAVITY: mucosa moist
--- OUTSIDE RECORDS SUMMARY | 2024-05-31 08:59 | XMS_ITS | Clinical Summary ---
Author Organization [facility] Address [address] [place] [address] Care Team Providers Care Coater Name Role Phone Unavailable Primary Care Provider Unavailabl e Social History Tobacco Use Types Packs/Day Years Used Date Smoking Tobacco: Never Assessed Sex and Gender Information Value Date Recorded Sex Assigned at Not on file Legal Sex Male 6:19 PM EST Gender Identity Not on file Sexual [...]
--- OUTSIDE RECORDS SUMMARY | 2024-05-31 08:59 | XMS_ITS ---
Author Organization [facility] Address [address] [place] [address] Care Team Providers Care Soup Person Name Role Phone TOMMY CHAPIN Primary Care Provider Kris Tate [phone] Encounters Encounter Location Date Provider Diagnosis [facility] [address] [place] [address] 01/04/2024 Kris Infante Plan Of Treatment Next Appt Details Provider Name:Kris Infante , 04/24/2025 10:00:00 AM, [address], [address], [place], [address], Progress Notes * KRIS COLEMAN LDOB:[birth year] (83 yo M)Acc No.[id number]:01/04/2024 Patient:?KRIS COLEMAN :1940???Age:83 Y???Sex:Male Address:[address] [place] [address], [address] * true * Date:? Generated for Printi ng/Faxing/eTransmitting on:?05/31/2024 08:59 AM EDT
--- OUTSIDE RECORDS SUMMARY | 2024-05-31 09:00 | XMS_ITS ---
[facility] Address [address] [place] [address] Care Team Providers Care Gas Station Supervisor Name Role Phone Cristhian Garcia Primary Care Provider Unav ailable Black, Estela Unavailable [phone] Allergies No Known Allergies REASON FOR VISIT [...] Ordered Date Performed Result Body Sit e 32825-BJXB SKIN LESIONS, 2 TO 4 03/02/2023 N/A 27120-NSHW NAIL(S) 03/02/2023 N/A Encounters Encounter Location Date Provider Diagnosis [facility] [address] [address] 03/02/2023 Estela Bell Type 2 diabetes mellitus with diabetic polyneuropathy E11.42 Assessments Encounter Date Diagnosis (ICD Code) Assessment Notes Treatment Notes Treatment Clinical Notes Section Notes 03/02/2023 Type 2 diabetes mellitus with diabetic polyneuropathy (ICD-10 - E11.42) 03/02/2023 Other Plan Of Treatment Pending Test Test Name Order Date 91960-VPGL SKIN LESIONS, 2 TO 4 03/02/19 54463-BPNK NAIL(S) 03/02/2023 Next Appt Details Follow Up: prn, Reason: Provider Name:Estela Bell , 09/05/2024 09:00:00 AM, [address] [place] [address], [address], Procedure Notes * Category Sub-Category Detail Notes Keratoma Treatment Parring or Cutting o f Benign Hyperkeratotic Lesion(s) 51552 (2-4 Lesions) - The Benign hyperkeratotic lesions, as described above were pared, and/or cut utilizing a sterile #15 blade, tissue nippers, and/or dremel Nail Reduction Nail Reduction Trimming of non- dystrophic nails performed to reduce/remove overall nail length and girth, by manual and electrical means with use of a nail nipper and/or dremel, to more viable healthy nail plate or bed tissue 6-10 (21925) Progress Notes * Larry COLEMAN LDOB:[birth year] (82 yo M)Acc No.[id number]:03/02/2023 Progress Note Patient:?Larry Coleman Provider:?Estela Bell DPM :1940???Age:82 Y???Sex:Male Antolin e:03/02/2023 Address:[address] [place], [place] [phone] Pcp:TUSHAR Jiang Subjective: * Chief Complaints: * [...] Procedures:?Keratoma Treatment:?Parring or Cutting of Benign Hyperkeratotic Lesion(s)?72594 (2-4 Lesions) - The Benign hyperkeratotic lesions, as described above were pared, and/or cut utilizing a sterile #15 blade, tissue nippers, and/or dremel.?Nail Reduction:?Nail Reduction?Trimming of non-dystrophic nails performed to reduce/remove overall nail length and girth, by manual and electrical means with use of a nail nipper and/or dremel, to more viable healthy nail plate or bed tissue 6-10 (56870).? * Procedure Codes:?59009 TRIM SKIN LESIONS, 2 TO 4, Modifiers: XS 79415 TRIM NAIL(S), Modifiers: XS * Follow Up:?prn * Images: * Sign off status: Completed true * Provider:?Estela Bell DPM Date:?2023 Generated for Hector martinez/Eliud/Mariam on:?05/31/2024 08:59 AM EDT History and Physical [...]
--- OUTSIDE RECORDS SUMMARY | 2024-05-31 09:00 | XMS_ITS | Patient Health Record ---
Author Organization [facility] Address [address] [place] [address] Care Team Providers Care Barbering Teacher Name Role Phone TOMMY DURÁN Primary Care Provider Kris Tate Unavailable [phone] Allergies No Known Allergies Results Component Value Reference Range Notes Electrolytes Reviewed date:06/08/2023 06:57:15 PM Interpretation: Performing Lab:[facility], [address] [place] [phone] Notes/Report: Sodium 140 135-145 mmol/L Potassium 4.2 3.3-5.1 mmol/L Chloride 108 96-108 mmol/L Carbon Dioxide 23 22-29 mmol/L Anion Gap 13 12-20 Creatinine Reviewed date:06/08/2023 06:56:59 PM Interpretation: Performing Lab:[facility], [address] [place] [address] Notes/Report: Creatinine 1.42 0.5-1.4 mg/dL Estimated Glomerular Filt Rate 48 NOTE: For -Montserratian individuals, multiply the result by 1.210. Chronic Kidney Disease: Estimated GFR < 60 mL/min/1.73m2 Severe Kidney Disease: Estimated GFR < 15 mL/min/1.73m2 Ferritin Reviewed date:08/24/2023 07:44:13 PM Interpretation: Performing Lab:[facility], [address] [place] [phone] Notes/Report: Ferritin 56 20-250 ng/mL Vitamin B12 and Folate Reviewed date:08/11/2023 05:53:39 PM Interpretation: Performing Lab:[facility], [address] [place] [phone] Notes/Report: Vitamin B12 > 2000 200-900 pg/mL NORMAL 200-900 PG/ML INDETERMINATE 160-199 PG/ML DEFICIENT < 160 PG/ML Folate 8.1 > or = 4.0 ng/mL Reference Values: > or = 4.0 ng/mL < 4.0 ng/mL suggests folate deficiency Methotrexate, aminopterin and folinic acid (leucovorin) are chemotherapeutic agents whose molecular structures are similar to folate; therefore, the Building Illuminating Engineer folate assay cannot be used for patients using these drugs. Complete Blood Count Auto Di ff Reviewed date:06/13/2023 06:06:26 PM Interpretation: Performing Lab:[facility], [address] [place] [phone] Notes/Report: White Blood Count 7.7 4.8-10.8 X10*3/uL [...] 0.0-0.2 /100WBC Neutrophils Absolute Auto 6.1 2.0-8.3 x10*3/uL Imm Gran Abs Auto 0.03 0.00-0.03 X10*3/uL Lymphocytes Absolute Auto 1.0 1.2-4.9 X10*3/uL Monocytes Absolute Auto 0.4 0.1-1.2 X10*3/uL Eosinophils Absolute Auto 0.1 0.0-0.4 X10*3/uL Basophils Absolute Auto 0.0 0.0-0.2 X10*3/uL NRBC Abs Auto 0.000 0.0-0.012 X10*3/uL Erythrocyte Sedimentation Ra te Reviewed date:06/08/2023 06:56:50 PM Interpretation: Performing Lab:[address] [address] Notes/Report: Erythrocyte Sedimentation Rate 30 0-15 MM/HR Patients with polycythemia and many hemoglobin abnormalities may have depressed sed rates whereas patients with anemia may have elevated sed rates. Liver Panel Reviewed date:06/08/2023 06:56:30 PM Interpretation: Performing Lab:[address] [address] Notes/Report: Bilirubin Total 0.6 0.0-1.0 mg/dL Bilirubin Direct 0.3 0.0-0.5 mg/dL Aspartate Amino Transferase 15 5-37 U/L Alanine Aminotransferase 8 0-40 U/L Total Protein 6.8 6.5-8.0 g/dL Albumin Level 3.6 3.5-5.0 g/dL Alkaline Phosphatase 39 39-117 U/L Blood Urea Nitrogen Reviewed date:06/08/2023 06:56:37 PM Interpretation: Performing Lab:[facility], [address] [place] [phone] Notes/Report: Blood Urea Nitrogen 23 9-16 mg/dL C Reactive Protein Reviewed date:06/14/2023 10:05:28 PM Interpretation: Performing Lab:[facility], [address] [place] [phone] Notes/Report: C Reactive Protein 15.47 < or = 0.50 mg/dL CT abdomen pelvis wo con Reviewed date:06/14/2023 10:03:37 PM Interpretation: Performing Lab: Notes/Report: [address] [place] [address] [address] [address] Scan Report Signed Patient: Kris Coleman MR#: [id number] : 1940 Acct:[id number] Age/Sex: 83 / M ADM Date: 06/13/23 Loc: HO.CT Attending Dr: Kris Infante MD Ordering Physician: Kris Infante Date of Service: 06/13/23 Procedure(s): CT abdomen pelvis wo IV con Accession Number(s): [id number] cc: Tommy Durán [facility]; Kris Infante EXAMINATION: CT ABDOMEN AND [...] in OV> 06/14/23 1839 DD/ 1156 TD/TT: Community Health Worker: [place] [address] [address] Scan Report Signed Patient: Kris Coleman MR#: [id number] : 1940 Acct:[id number] Age/Sex: 83 / M ADM Date: 06/13/23 Loc: HO.CT Attending Dr: Kris Infante MD Ordering Physician: Kris Infante Date of Service: 06/13/23 Procedure(s): CT abdomen pelvis wo IV con Accession Number(s): [id number] cc: Tommy Durán COMMUNICATIONS PROFESSOR-; Kris Infante EXAMINATION: CT ABDOMEN AND PELVI S WITHOUT CONTRAST CLINICAL INFORMATION: Epigastric pain and diverticulosis COMPARISON: CT angiogram abdomen 04/24/2023 TECHNIQUE: Multidetector volumetric imaging was performed from the superior aspect of the liver through the pubic symphysis. Sagittal and coronal reformatted images w ere obtained on the technologist's workstation. This CT examination was performed using dose optimization techniques as appropriate, various ly including the following: *Automated exposure control *Adjustment [...] liver is normal in size, shape, and attenuati on. A small benign cyst is seen in the left lobe of the liver (3:10). No concerning solid focal hepatic lesion or biliary ductal dilatation is present. The gallbladder is unremarkable with no evidence of radiopaq ue gallstones, gallbladder wall thickening, or obvious pericholecys tic inflammatory changes. PANCREAS: Unremarkable. SPLEEN: Unremarkable. ADRENAL GLANDS: Unremarkable. KIDNEYS AND URETERS: The kidneys are normal in size, shape, and attenuation. No hydronephrosis, hydroureter, or calculi seen. No perinephric strandin g. Multiple bilateral benign Bosniak class I renal cysts are noted as s een previously which require no additional imaging or follow-up. No samantha id renal masses are seen. BLADDER: Unremarkable. GASTROINTESTINAL TRA CT: A tiny hiatal hernia is seen. There is colonic diverticulosis witho ut diverticulitis. The appendix is normal. Compared with the prior study , there's been significant improvement in the appearance of the sm all bowel with the multiple abscesses seen surrounding abnormal loops. At this time, some phlegmonous changes remain anteriorly wi th a few punctate areas of extraluminal air. There is one walled off well-defined area adjacent to a loop of small bowel measuring 3 x 2 x 2. 7 cm which may represent a walled off abscess with communication with bowel lumen as this fills with contrast. No free intraperitoneal air is seen. ABDOMINAL WALL: Is a small periumbilical hernia seen containing only fat. LYMPH NODES: No retroperitoneal lymphadenopathy. VASCULAR: Marked calcific atherosclerotic changes are present in the aorta and iliofemora l vessels. There is no evidence of an [...] remain anteriorly with a few punctate areas o f extraluminal air. There is one walled off area adjacent to a loop o f small bowel measuring 3 cm which may represent a walled off abscess w ith communication with bowel lumen as this fills with contrast. No fr ee intraperitoneal air is seen. 2. Incidental note m topher of colonic diverticulosis without diverticulitis, sebastian gn hepatic and renal cysts which need no additional imaging or follow-up , small hiatal hernia and degenerative changes in the spine. Fleischner guideline s were followed. Dictated By: Scott Hernandez MD Signed By: <Electronically signed by Scott Hernandez MD in OV> 06/14/23 1839 DD/ 1156 TD/TT: Community Health Worker: CT abdomen pelvis w con Reviewed date:08/10/2023 06:00:05 PM Interpretation: Performing Lab: Notes/Report: [address] [place] [address] [address] [address] Scan Report Signed Patient: Kris Coleman MR#: [id number] : 1940 Acct:[id number] Age/Sex: 83 / M ADM Date: 08/04/23 Loc: HO.CT Attending Dr: Kris Infante MD Ordering Physician: Kris Infante Date of Service: 08/04/23 Procedure(s): CT abdomen pelvis w IV con Accession Number(s): [id number] cc: Tommy Durán [facility]; Kris Infante EXAMINATION: CT ABDOMEN AND [...] in OV> 08/04/23 1616 DD/ 1359 TD/TT: Community Health Worker: [address] [address] [address] Scan Report Signed Patient: Kris Coleman MR#: [id number] : 1940 Acct:[id number] Age/Sex: 83 / M ADM Date: 08/04/23 Loc: HO.CT Attending Dr: Kris Infante MD Ordering Physician: Kris Infante Date of Service: 08/04/23 Procedure(s): CT abdomen pelvis w IV con Accession Number(s): [id number] cc: Tommy Durán [facility]-; Kris Infante EXAMINATION: CT ABDOMEN AND PELVI S WITH CONTRAST CLINICAL INFORMATION: Diverticulitis with perforation and abscess COMPARISON: 06/13/2023 TECHNIQUE: Multidetector volumetric images were obtained from the superior aspect of the liver through the pubic symphysis following administration 85 mL of Omnipaque 350 intravenous contrast. Sagittal and coronal reformatted images were obtained on the technologist's workstation. Oral contrast: No This CT examination was performed using dose optimization techniques as appropriate, various ly including the following: *Automated exposure control *Adjustment [...] may well represent cystic. To small to adequate ly characterize The gallbladder is unremarkable with no evidence of radiopaque gallstones, gallbladder wall thickening, or obvious pericholecystic inflammatory changes. PANCREAS: Unremarkable. SPLEEN: Unremarkable. ADRENAL GLANDS: Once again nodular left adrenal gland. Nodular versus full right adrenal o nce again seen KIDNEYS AND URETERS: Cystic change is seen here. No suggestion for a solid lesion. No hydronephrosis BLADDER: Mildly irregular bladder wall GASTROINTESTINAL TRA CT: There is abnormal soft tissue density/collection o n image 41 midabdomen the left of midline. This areas measuring 3.4 x 2.2 x 2.7 cm. this there is a small air bubble associated with this . Therefore infectious etiology needs to be considered.. Other small air densities are seen but these could reside within bowel in the region. Differential would include a bowel diverticulum or possible other small local infectious etiologies in the vicinity. As stated I feel thi s is involving the small bowel. This is difficult to compare to previo us exam due to normal bowel movement between exams. The same area as previously with some soft tissue stranding but again impossible to say if this is involving seen region. There is diverticula r disease but no evidence for diverticulitis Hyperdensities area within the stomach could be an ingested product. This is not causing obstruction. A believe was present on previous exams. ABDOMINAL WALL: No significant hernia is appreciated. LYMPH NODES: There i s no bulky adenopathy here. VASCULAR: Atherosclerotic changes are noted PELVIC VISCERA: Unremarkable. OSSEOUS STRUCTURES: Once again sclerotic changes in the femoral heads may be consistent wi th avascular necrosis CT/CT abdomen pelvis w IV con IMPRESSION: When compared to mos t recent previous exam there is some increasing change in the region of the previous abnormality within the mesentery associated with smal l bowel. Midabdomen and to the left of midline. As stated is difficult to say if this is the exact same area due to the mobility of small river wel but the generalized area is similar. There is a collection here with an air bubble in some small other air densities around as described. Suspicious for abscess Other findings are a s described. Cannot rule out fore ign body stomach in the antrum. Fleischner guideline s were followed. Dictated By: Riley Dove MD Signed By: <Electronically signed by Riley Dove MD in OV> 08/04/23 1616 DD/ 1359 TD/TT: Community Health Worker: CARLOS Complete Blood Count Auto Di ff Reviewed date:08/11/2023 05:10:58 PM Interpretation: Performing Lab:[facility], [address] [place] [phone] Notes/Report: White Blood Count 5.2 4.8-10.8 X10*3/uL [...] 0.0-0.2 /100WBC Neutrophils Absolute Auto 3.3 2.0-8.3 x10*3/uL Imm Gran Abs Auto 0.02 0.00-0.03 X10*3/uL Lymphocytes Absolute Auto 1.4 1.2-4.9 X10*3/uL Monocytes Absolute Auto 0.4 0.1-1.2 X10*3/uL Eosinophils Absolute Auto 0.1 0.0-0.4 X10*3/uL Basophils Absolute Auto 0.0 0.0-0.2 X10*3/uL NRBC Abs Auto 0.000 0.0-0.012 X10*3/uL Erythrocyte Sedimentation Ra te Reviewed date:08/11/2023 05:53:06 PM Interpretation: Performing Lab:[facility], [address] [place] [address] Notes/Report: Erythrocyte Sedimentation Rate 4 0-15 MM/HR Patients with polycythemia and many hemoglobin abnormalities may have depressed sed rates whereas patients with anemia may have elevated sed rates. Liver Panel Reviewed date:08/11/2023 05:53:16 PM Interpretation: Performing Lab:[facility], [address] [place] [phone] Notes/Report: Bilirubin Total 0.3 0.0-1.0 mg/dL Bilirubin Direct 0.1 0.0-0.5 mg/dL Aspartate Amino Transferase 24 5-37 U/L Alanine Aminotransferase 13 0-40 U/L Total Protein 6.8 6.5-8.0 g/dL Albumin Level 3.9 3.5-5.0 g/dL Alkaline Phosphatase 37 39-117 U/L IRON PROFILE Reviewed date:08/11/2023 05:53:25 PM Interpretation: Performing Lab:[facility], [address] [place] [address] Notes/Report: Iron 56 45-160 mcg/dL Total Iron Binding Capacity 351 228-428 mcg/dL Percent Iron Saturation 16 15-50 % Unsaturated Iron Binding 295 C Reactive Protein Reviewed date:08/11/2023 05:53:31 PM Interpretation: Performing Lab:[facility], [address] [place] [phone] Notes/Report: C Reactive Protein < 0.10 < or = 0.50 mg/dL Prostate Specific Antigen Reviewed date:08/11/2023 05:52:59 PM Interpretation: Performing Lab:[facility], [address] [place] [phone] Notes/Report: Prostate Specific Antigen 0.83 <0.05-4.0 ng/mL PSA methodology: Keller Alinity i Chemiluminescent Microparticle Immunoassay (CMIA) CT abdomen pelvis wo con Reviewed date:12/21/2023 04:34:52 PM Interpretation: Performing Lab: Notes/Report: [address] [place] [address] [address] [address] Scan Report Signed Patient: Kris Coleman MR#: [id number] : 1940 Acct:[id number] Age/Sex: 83 / M ADM Date: 12/15/23 Loc: HO.CT Attending Dr: Kris Infante MD Ordering Physician: Kris Infante MD Date of Service: 12/15/23 Procedure(s): CT abdomen pelvis wo IV con Accession Number(s): [id number] cc: Tommy Durán COMMUNICATIONS PROFESSOR-; Kris Infante MD EXAMINATION: CT ABDOMEN AND [...] Adrian Barrera MD 12/15/2023 04:32 PM EDT [id number] Dictated By: Adrian Barrera MD Signed By: <Electronically signed by Adrian Barrera MD in OV> 12/15/23 1632 DD/ 1335 TD/TT: 12/15/23 1335 Community Health Worker: [place] [address] CT Scan Report Signed Patient: Kris Coleman MR#: [id number] : 1940 Acct:[id number] Age/Sex: 83 / M ADM Date: 12/15/23 Loc: HO.CT Attending Dr: Kris Infante MD Ordering Physician: Kris Infante MD Date of Service: 12/15/23 Procedure(s): CT abdomen pelvis wo IV con Accession Number(s): [id number] cc: Tommy Durán [facility]; Kris Infante MD EXAMINATION: CT ABDOMEN AND PELVI S WITHOUT CONTRAST CLINICAL INFORMATION: Diverticulitis. Evaluate for perforation/abscess. COMPARISON: Multiple priors, mos t recent CT abdomen/pelvis dated 08/04/2023. TECHNIQUE: Multidetector volumetric imaging was performed from the superior aspect of the liver through the pubic symphysis. Sagittal and coronal reformatted images w ere obtained on the technologist's workstation. This CT examination was performed using dose optimization techniques as appropriate, various ly including the following: *Automated exposure control *Adjustment [...] liver is normal in size, shape, and attenuati on. Tiny hepatic cysts are unchanged. No new focal hepatic lesion or biliary ductal dilatation is present. The gallbladder is unremarkable with no evidence of radiopaque gallstones, gallbladder wall thickening, or obvious pericholecystic inflammatory changes. PANCREAS: Unremarkable. SPLEEN: Unremarkable. ADRENAL GLANDS: Unremarkable. KIDNEYS AND URETERS: The kidneys are normal in size, shape, and attenuation. No hydronephrosis, hydroureter, or calculi seen. Simple bilateral renal cyst s are redemonstrated. Findings are not clinically significant and no dedicated follow-up imaging is recommended. No perinephric stranding. BLADDER: Nondistende d and unremarkable. GASTROINTESTINAL TRA CT: No small or large bowel obstruction. Oral contrast reaches the cecum. There are diffuse, scattered areas of circumferential, irregular bowel wall thickening throughout the small bowel. Minimal if an y adjacent inflammatory change. Diffuse areas of scattered small leelee l diverticulosis. No focal area of significant diverticulitis. Additionally, there are areas of colonic diverticulosis without evidence of colonic diverticulitis. No extraluminal air or evidence of perforation/abscess formation. PERITONEAL CAVITY: N o intra-abdominal free air or free fluid. ABDOMINAL WALL: No significant hernia is appreciated. LYMPH NODES: No lymphadenopathy. VASCULAR: No abdomin al aortic dilatation or dissection. Atherosclerotic calcifications. PELVIC VISCERA: The prostate and seminal vesicles are unremarkable. OSSEOUS STRUCTURES: No acute osseous abnormality. 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 CT/CT abdomen pelvis wo IV con IMPRESSION: 1. Diffuse, scattere d areas of circumferential, irregular small bowel wall thickening. Minimal if any adjacent inflammatory change. Findings could indicate an infectious or inflammatory process. No evidence of perforation or absce ss formation. 2. Chronic diverticulosis without evidence of acute diverticulitis. No small or large bowel obstruction. 3. No intra-abdomina l mass, lymphadenopathy, or ascites. 4. Additional chroni c findings are unchanged. Fleischner guideline s were followed. Electronically jose d by: Adrian Barrera MD 12/15/2023 04:32 PM EDT Dictated By: Adrian Barrera MD Signed By: <Electronically signed by Adrian Barrera MD in OV> 12/15/23 1632 DD/ 34 TD/TT: 12/15/231334 Community Health Worker: Complete Blood Count Auto Di ff Reviewed date:01/04/2024 06:22:26 PM Interpretation: Performing Lab:[address] [address] Notes/Report: White Blood Count 4.0 4.8-10.8 X10*3/uL [...] 0.0-0.2 /100WBC Neutrophils Absolute Auto 2.3 2.0-8.3 x10*3/uL Imm Gran Abs Auto 0.01 0.00-0.03 X10*3/uL Lymphocytes Absolute Auto 1.2 1.2-4.9 X10*3/uL Monocytes Absolute Auto 0.3 0.1-1.2 X10*3/uL Eosinophils Absolute Auto 0.2 0.0-0.4 X10*3/uL Basophils Absolute Auto 0.0 0.0-0.2 X10*3/uL NRBC Abs Auto 0.000 0.0-0.012 X10*3/uL Liver Panel Reviewed date:01/04/2024 06:22:38 PM Interpretation: Performing Lab:[facility], [address] [place] [phone] Notes/Report: Bilirubin Total 0.5 0.0-1.0 mg/dL Bilirubin Direct 0.2 0.0-0.5 mg/dL Aspartate Amino Transferase 39 5-37 U/L Slight Hemolysis.Interpret result with caution. Alanine Aminotransferase 19 0-40 U/L Total Protein 6.2 6.5-8.0 g/dL Albumin Level 3.7 3.5-5.0 g/dL Alkaline Phosphatase 42 39-117 U/L Basic Metabolic Panel Reviewed date:01/04/2024 06:24:42 PM Interpretation: Performing Lab:[facility], [address] [place] [phone] Notes/Report: Sodium 142 135-145 mmol/L Potassium 4.5 3.3-5.1 mmol/L Slight Hemolysis.Interpret result with caution. Chloride 111 96-108 mmol/L [...] PROFILE Reviewed date:01/04/2024 12:39:25 PM Interpretation: Performing Lab:[facility], [address] [place] [phone] Notes/Report: Iron 83 45-160 mcg/dL Slight Hemolysis.Interpret result with caution. Total Iron Binding Capacity 356 228-428 mcg/dL Percent Iron Saturation 23 15-50 % Unsaturated Iron Binding 273 Ferritin Reviewed date:01/04/2024 06:24:51 PM Interpretation: Performing Lab:[facility], [address] [place] [phone] Notes/Report: Ferritin 53 20-250 ng/mL Free T4 (Free Thyroxine) Reviewed date:01/04/2024 06:24:58 PM Interpretation: Performing Lab:[facility], [address] [place] [phone] Notes/Report: Free T4 (Free Thyroxine) 1.17 0.71-1.85 ng/dL TSH reflex Free T4 Reviewed date:01/04/2024 12:39:16 PM Interpretation: Performing Lab:[facility], [address] [place] [phone] Notes/Report: TSH reflex Free T4 4.01 0.32-4.0 uIU/mL Reason For Referral No Information Medications Medication SIG (Take, Route, Frequency, Duration) Notes Start Date End Date Status Magnesium 200 MG 1 tablet with a meal Orally Twice a day Active Omeprazole 40 MG TAKE 1 CAPSULE BY MOUTH EVERY MORNING for 30 Active Vitamin D3 Active Readi-Cat 2 2 % 1 450ml bottle [address] and then 1 450ml bottle [address] Orally 2 bottles as directed for 1 days 11/19/2023 Active Aspirin 81 81 MG 1 tablet Orally Once a day for 30 day(s) Active Famotidine 40 MG 1 Orally Twice a day for 30 days 04/20/2023 Active Vitamin B12 INJECTIONS MONTHLY Active Pioglitazone HCl 30 MG 1 tablet Oral Once a day Active traZODone HCl 50 MG as directed Oral Once a day Active Fenofibrate 160 MG 1 tablet Oral Once a day Active dilTIAZem HCl ER Coated Beads 240 MG 1 tablet Oral Once a day Active Atorvastatin Calcium 40 MG 1 tablet Oral Once a day Active Ondansetron HCl 4 MG 1 tablet Oral Once a day Active metFORMIN HCl ER 500 MG 1 tablet with evening meal Oral Once a day Active Famotidine 40 MG 1 tablet at bedtime as needed Oral Once a day Not-Taking Citrucel 500 MG as directed Orally as directed Active Nasal [place] 0.05 % 4 sprays (2 sprays in each nostril) Nasally Twice a day for 3 day(s) Not-Taking Immunizations Vaccine Route Administration Date Status Comme nts Influenza Unknown 12/14/2020 Administered Influenza Unknown 10/14/2021 Administered Social History Tobacco Use: Social History [...] Nonsmoker x 10 years; occ al cohol Nonsmoker x 10 years; occ al cohol Nonsmoker x 10 years; occ al cohol Nonsmoker x 10 years; occ al cohol Nonsmoker x 10 years; occ al cohol Nonsmoker x 10 years; occ al cohol Nonsmoker x 10 years; occ al cohol Nonsmoker x 10 years; occ al cohol Problems Problem Type SNOMED Code ICD Code Onset Dates Problem Status W/U Status Risk Notes Problem Epigastric pain (54515420) Epigastric abdominal pain (R10.13) Active confirmed Problem Epigastric pain (27150296) Epigastric pain (R10.13) Active confirmed Problem Perforation and abscess of small intestine co-occurrent and due to diverticulitis (disorder) (605312956) Diverticulitis of small intestine with perforation and abscess without bleeding (K57.00) Active confirmed Problem Diverticulitis of small intestine (06503985) Diverticulitis of small intestine without perforation or abscess without bleeding (K57.12) Active confirmed Problem Nausea (065046737) Nausea (R11.0) Active confir med Problem Anorexia (16056326) Anorexia (R63.0) Active con firmed Problem Early satiety (827706949) Early satiety (R68.81) Active confirmed Problem Anemia (165219472) Anemia (D64.9) Active confir med Problem Gastritis (2685981) Gastritis (K29.70) Active confirmed Problem Chronic fatigue syndrome (37189436) Chronic fatigue (R53.82) Active confirmed Problem Gastroesophageal reflux disease (615911239) GERD (gastroesophageal reflux disease) (K21.9) Active confirmed Problem Loss of appetite (84551214) Decreased appetite (R63.0) Active confirmed Vital Signs Blood pressure diastolic 11 mm Hg 04/23/2024 Height 67 in 04/23/2024 Blood pressure systolic 111 mm Hg 04/23/2024 Weight 162 lbs 04/23/2024 BMI 25.37 kg/m2 04/23/2024 Encounters Encounter Location Date Provider Diagnosis [facility] [address] [place] [address] 06/08/2023 Kris Infante Epigastric abdominal pain R10.13 and Diverticulitis of small intestine with perforation and abscess without bleeding K57.00 [facility] [address] [place] [address] 06/20/2023 Kris Infante Anemia D64.9 and Diverticulitis of small intestine with perforation and abscess without bleeding K57.00 [facility] [address] [place] [address] 10/24/2023 Kris Naresh Diverticulitis of sm all intestine with perforation and abscess without bleeding K57.00 ; Anemia D64.9 and Chronic fatigue R53.82 [facility] [address] [place] [address] 04/23/2024 Kris Naresh Diverticulitis of sm all intestine with perforation and abscess without bleeding K57.00 [facility] [address] [place] [address] 06/06/2023 Kris Infante [facility] [address] [place] [address] 06/08/2023 Kris Infante [facility] [address] [place] [address] 06/08/2023 Kris Infante [facility] [address] [place] [address] 06/20/2023 Kris Infante [facility] [address] [place] [address] 06/26/2023 Kris Infante Diverticulitis of sm all intestine with perforation and abscess without bleeding K57.00 [facility] [address] [place] [address] 08/01/2023 Kris Infante [facility] [address] [place] [address] 08/10/2023 Kris Infante Diverticulitis of sm all intestine with perforation and abscess without bleeding K57.00 and Anemia D64.9 [facility] [address] [place] [address] 11/16/2023 Kris Infante [facility] [address] [place] [address] 11/20/2023 Kris Infante [facility] [address] [place] [address] 12/05/2023 Kris Infante [facility] [address] [place] [address] 12/21/2023 Kris Infante [facility] [address] [place] [address] 01/04/2024 Kris Infante Assessments Encounter Date Diagnosis (ICD Code) Assessment Notes Treatment Notes Treatment Clinical Notes Section Notes 06/08/2023 Epigastric abdominal pain (ICD-10 - R10.13) Based on Mihai's history over the past couple of months it certainly seems that he was having episodes of small bowel diverticulitis and resultant intra-abdominal infections as the cause of his symptoms. The finding of the aortic aneurysm with associated ulceration seems to be a possible incidental finding according to the vascular surgeon. It sounds like Mihai was improving nicely after treatment of the infection but over the past 2-3 days it sounds like things have recurred as far as the pain is concerned. As such I am going to try to obtain a CT scan of the abdomen with oral contrast as soon as possible and will check the below laboratories. I have instructed him to go to the ER if he develops any significant pain, fevers, etc. prior to having the CT scan. We did review the possibility that he might need to be readmitted for IV antibiotics again and seen by surgical consultation. He does have an appointment to see me again in 2 weeks but obviously we will be in touch with each other before that. Again, I emphasized that he should go to the ER if things worsen prior to his CT scan and hearing back from me. Mihai and his were comfortable with this plan. Thank you again for allowing me to participate in Mihai's care. I shall continue to keep you advised of his progress. 06/08/2023 Diverticulitis of small intestine with perforation and abscess without bleeding (ICD-10 - K57.00) Based on Mihai's history over the past couple of months it certainly seems that he was having episodes of small bowel diverticulitis and resultant intra-abdominal infections as the cause of his symptoms. The finding of the aortic aneurysm with associated ulceration seems to be a possible incidental finding according to the vascular surgeon. It sounds like Mihai was improving nicely after treatment of the infection but over the past 2-3 days it sounds like things have recurred as far as the pain is concerned. As such I am going to try to obtain a CT scan of the abdomen with oral contrast as soon as possible and will check the below laboratories. I have instructed him to go to the ER if he develops any significant pain, fevers, etc. prior to having the CT scan. We did review the possibility that he might need to be readmitted for IV antibiotics again and seen by surgical consultation. He does have an appointment to see me again in 2 weeks but obviously we will be in touch with each other before that. Again, I emphasized that he should go to the ER if things worsen prior to his CT scan and hearing back from me. Mihai and his were comfortable with this plan. Thank you again for allowing me to participate in Mihai's care. I shall continue to keep you advised of his progress. 06/20/2023 Diverticulitis of small intestine with perforation and abscess without bleeding (ICD-10 - K57.00) Overall, Mihai appears significantly improved both by his clinical appearance and by his symptoms. We did review the findings on the CT scan from last week. Based on his clinical history I suspect his recurrence of pain was related to the ongoing inflammation and infection in his abdomen that has now subsequently improved after the second course of Augmentin. His improved CT scan findings certainly seem to correlate with his improved clinical status. At this point I reviewed with Mihai and his that we shall simply continue to observe things and hope that the small bowel diverticulitis will remain quiescent. I don't think he requires a followup CT scan at this point given the findings on the scan last week and his good clinical appearance after treatment with antibiotics. However, we did review the potential for a recurrence of problems from the small bowel diverticulitis. We did review that this is unpredictable. I did advise him to eat a normal diet but to avoid things like popcorn and any significant amounts of nuts. Given the potential for a recurrence of infection, I have given him a prescription for a two-week supply of Augmentin to have on hand such that he can start the antibiotic promptly if he develops recurrent significant pain rather than first have to wait to call me and then wait to hear back for me. However, I did advise him that he should definitely call me if he develops pain and is starting the antibiotics so I will be aware of it. I did advise him that if indeed he develops significant abdominal pain I may want to repeat a CT scan to document what is occurring in the event things worsen again. If that is the case he might need a surgical evaluation. We did review his anemia and I advised him that may be partly contributing to of his fatigue. I shall check a repeat CBC, along with iron studies, ferritin level, B12 level, and folate level. He did turn in negative hemoccult cards over the past couple of years. His last colonoscopy was over 10 years ago. He did have an upper endoscopy with me if the beginning of 2022 which was not particularly revealing. If indeed he has iron deficiency anemia then we might need to proceed with a colonoscopy for further evaluation. If things remain stable I will plan to see him in the early part of the Fall for a followup visit. However, I did advise him and his to definitely to call me if things worsen and he needs to start his antibiotics, or if he has any other problems or questions I can be of assistance with. Mihai and his were very comfortable with this plan. Thank you again for allowing me to participate in Mihai's care. I shall continue to keep you advised of his progress. 06/20/2023 Anemia (ICD-10 - D64.9) Overall, Mihai appears significantly improved both by his clinical appearance and by his symptoms. We did review the findings on the CT scan from last week. Based on his clinical history I suspect his recurrence of pain was related to the ongoing inflammation and infection in his abdomen that has now subsequently improved after the second course of Augmentin. His improved CT scan findings certainly seem to correlate with his improved clinical status. At this point I reviewed with Mihai and his that we shall simply continue to observe things and hope that the small bowel diverticulitis will remain quiescent. I don't think he requires a followup CT scan at this point given the findings on the scan last week and his good clinical appearance after treatment with antibiotics. However, we did review the potential for a recurrence of problems from the small bowel diverticulitis. We did review that this is unpredictable. I did advise him to eat a normal diet but to avoid things like popcorn and any significant amounts of nuts. Given the potential for a recurrence of infection, I have given him a prescription for a two-week supply of Augmentin to have on hand such that he can start the antibiotic promptly if he develops recurrent significant pain rather than first have to wait to call me and then wait to hear back for me. However, I did advise him that he should definitely call me if he develops pain and is starting the antibiotics so I will be aware of it. I did advise him that if indeed he develops significant abdominal pain I may want to repeat a CT scan to document what is occurring in the event things worsen again. If that is the case he might need a surgical evaluation. We did review his anemia and I advised him that may be partly contributing to of his fatigue. I shall check a repeat CBC, along with iron studies, ferritin level, B12 level, and folate level. He did turn in negative hemoccult cards over the past couple of years. His last colonoscopy was over 10 years ago. He did have an upper endoscopy with me if the beginning of 2022 which was not particularly revealing. If indeed he has iron deficiency anemia then we might need to proceed with a colonoscopy for further evaluation. If things remain stable I will plan to see him in the early part of the Fall for a followup visit. However, I did advise him and his to definitely to call me if things worsen and he needs to start his antibiotics, or if he has any other problems or questions I can be of assistance with. Mihai and his were very comfortable with this plan. Thank you again for allowing me to participate in Mihai's care. I shall continue to keep you advised of his progress. 10/24/2023 Diverticulitis of small intestine with perforation and abscess without bleeding (ICD-10 - K57.00) Try stopping the Citrucel and see how the BM's do without it. You can start taking an over the counter Iron supplement 3 or 4 times a week for the anemia. Speak with Dr. Munguia before using any protein powder. Use Ensure or Boost instead for now. Overall, Mihai appears to be doing well and is remaining stable at the present time while off the antibiotics for over one month now. He has not shown any signs nor have any symptoms of clinical deterioration that he had been having in the past within 24-48 hours of having stopped the antibiotics. His only residual symptom is that of some fatigue and perhaps a somewhat decreased appetite. However, his stable weight for over three months now is reassuring. We reviewed that he may not gain his weight back to where he had been previously, but as long as his current weight remains stable then that would be a good sign. In regard to his loose stools in the morning I did recommend that he stop the Citrucel to see if that might help to eliminate the loose bowel movement later in the morning that he has been experiencing. I did advise him that he could certainly resume it if he senses some constipation. In regard to his ongoing fatigue, anemia, and a relatively low ferritin level, I did recommend that he start using an iron supplement 3 or 4 times a day. 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 I did advise him to use some nutritional supplements such as Ensure or Boost instead. I did recommend a followup CT scan with just oral contrast to compare to the one done in July. I don't think he needs IV contrast, particularly with his borderline renal function. While he appears well and things appeared stable, I advised him that I think would be a good idea to get a CT scan while he is feeling well so as to have a new baseline to have in the event things worsen in the future so we will be able to have a comparison. I shall so check some followup laboratories. If things otherwise remain well I will plan to see Mihai in 6 months for followup visit. I did advise him to call sooner if he has any problems or questions I can be of assistance with. Mihai and Simi were comfortable with this plan. Thank you again for allowing me to participate in Mihai's care. I shall continue to keep you advised of his progress. 10/24/2023 Anemia (ICD-10 - D64.9) Overall, Mihai appears to be doing well and is remaining stable at the present time while off the antibiotics for over one month now. He has not shown any signs nor have any symptoms of clinical deterioration that he had been having in the past within 24-48 hours of having stopped the antibiotics. His only residual symptom is that of some fatigue and perhaps a somewhat decreased appetite. However, his stable weight for over three months now is reassuring. We reviewed that he may not gain his weight back to where he had been previously, but as long as his current weight remains stable then that would be a good sign. In regard to his loose stools in the morning I did recommend that he stop the Citrucel to see if that might help to eliminate the loose bowel movement later in the morning that he has been experiencing. I did advise him that he could certainly resume it if he senses some constipation. In regard to his ongoing fatigue, anemia, and a relatively low ferritin level, I did recommend that he start using an iron supplement 3 or 4 times a day. 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 I did advise him to use some nutritional supplements such as Ensure or Boost instead. I did recommend a followup CT scan with just oral contrast to compare to the one done in July. I don't think he needs IV contrast, particularly with his borderline renal function. While he appears well and things appeared stable, I advised him that I think would be a good idea to get a CT scan while he is feeling well so as to have a new baseline to have in the event things worsen in the future so we will be able to have a comparison. I shall so check some followup laboratories. If things otherwise remain well I will plan to see Mihai in 6 months for followup visit. I did advise him to call sooner if he has any problems or questions I can be of assistance with. Mihai and Simi were comfortable with this plan. Thank you again for allowing me to participate in Mihai's care. I shall continue to keep you advised of his progress. 04/23/2024 Diverticulitis of small intestine with perforation [...] to keep you advised of his progress. 06/26/2023 Diverticulitis of small intestine with perforation and abscess without bleeding (ICD-10 - K57.00) 08/10/2023 Diverticulitis of small intestine with perforation and abscess without bleeding (ICD-10 - K57.00) 10/24/2023 Chronic fatigue (ICD-10 - R53.82) Overall, Mihai appears to be doing well and is remaining stable at the present time while off the antibiotics for over one month now. He has not shown any signs nor have any symptoms of clinical deterioration that he had been having in the past within 24-48 hours of having stopped the antibiotics. His only residual symptom is that of some fatigue and perhaps a somewhat decreased appetite. However, his stable weight for over three months now is reassuring. We reviewed that he may not gain his weight back to where he had been previously, but as long as his current weight remains stable then that would be a good sign. In regard to his loose stools in the morning I did recommend that he stop the Citrucel to see if that might help to eliminate the loose bowel movement later in the morning that he has been experiencing. I did advise him that he could certainly resume it if he senses some constipation. In regard to his ongoing fatigue, anemia, and a relatively low ferritin level, I did recommend that he start using an iron supplement 3 or 4 times a day. 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 I did advise him to use some nutritional supplements such as Ensure or Boost instead. I did recommend a followup CT scan with just oral contrast to compare to the one done in July. I don't think he needs IV contrast, particularly with his borderline renal function. While he appears well and things appeared stable, I advised him that I think would be a good idea to get a CT scan while he is feeling well so as to have a new baseline to have in the event things worsen in the future so we will be able to have a comparison. I shall so check some followup laboratories. If things otherwise remain well I will plan to see Mihai in 6 months for followup visit. I did advise him to call sooner if he has any problems or questions I can be of assistance with. Mihai and Simi were comfortable with this plan. Thank you again for allowing me to participate in Mihai's care. I shall continue to keep you advised of his progress. 08/10/2023 Anemia (ICD-10 - D64.9) Plan Of Treatment Pending Test Test Name Order Date CHEM 7 PROFILE 06/26/2023 CHEM 7 PROFILE 10/24/2023 BUN 02/08/2022 BUN 06/08/2023 CREATININE 02/08/2022 LIVER PROFILE 06/08/2023 LIVER PROFILE 08/10/2023 LIVER PROFILE 10/24/2023 LIVER PROFILE 04/20/2023 LIVER PROFILE 06/26/2023 IRON + IBC (FE) 06/20/2023 IRON + IBC (FE) 08/10/2023 IRON + IBC (FE) 10/24/2023 CRP 06/26/2023 CRP 06/08/2023 CRP 08/10/2023 VITAMIN B12 AND FOLATE 06/20/2023 CBC w DIFF 06/26/2023 CBC w DIFF 06/08/2023 CBC w DIFF 06/20/2023 CBC w DIFF 04/20/2023 CBC w DIFF 10/24/2023 CBC w DIFF 08/10/2023 SED RATE (ESR) [...] Provider Name:Kris Infante , 04/24/2025 10:00:00 AM, [address] [place] [address], [place] [address], [place], [address], Insurance Providers Payer Name Payer Address Payer Phone Subscriber Number Group Number Insured Name Patient Relationship to Insured Coverage Start Date Coverage End Date MEDICARE OF [place] [address] [place] [place] [address] [id number] KRIS BAKER Self - patient is the insured [employer] ATTN CLAIMS [address] [place] [address] [id number] KRIS BAKER Self - patient is the insured Medical (General) History Medical History History ICD Code Kidney stones COPD Prostate cancer NIDDM Hypertension Denies [place],CVA,Lung disease,renal disease Negative colonoscopy > 10 years [...] MARSHAL-followed by vascular surgery, Dr. Soler, at [facility]. He felt this presented more of a chronic issue as opposed to an acute problem. Inflammation and small absce sses in the region of the small bowel seen on the CT scan during the workup for the abdominal pain in April of 2023. This was treated with IV and subsequent oral antibiotics at [facility]. There was the finding of multiple [...] December 2023 also appeared quite stable and improved. Surgical History Surgery Date(Month/Year) Bilateral LE vascular procedures Left carotid
--- OUTSIDE RECORDS SUMMARY | 2024-05-31 09:00 | XMS_ITS ---
Author Organization [facility] Address [address] [place] [address] Care Team Providers Care Rayon Coner Name Role Phone Cristhian Garcia Primary Care Provider Unav ailable Black, Estela Unavailable [phone] Allergies No Known Allergies REASON FOR VISIT [...] Ordered Date Performed Result Body Sit e 23832-DGZI SKIN LESIONS, 2 TO 4 03/07/2024 N/A [id number] NAIL(S) 03/07/2024 N/A Encounters Encounter Location Date Provider Diagnosis [facility] [place] [address] [place] [address] 03/07/2024 Estela Bell Type 2 diabetes mellitus [...] days Pending Test Test Name Order Date 83487-FXNP SKIN LESIONS, 2 TO 4 03/07/19 [id number] NAIL(S) 03/07/2024 Next Appt Details Follow Up: prn, Reason: Provider Name:Estela Bell , 09/05/2024 09:00:00 AM, [address] [place] [address], [id number], Procedure Notes * Category Sub-Category Detail Notes [...] instrumentation by the physician of record - 95578 Nail Reduction Nail Reduction (-19) Trimming o [...] healthy nail plate or bed tissue - 76909 Progress Notes * Larry COLEMAN LDOB:[birth year] (83 yo M)Acc No.[id number]:03/07/2024 Progress Note Patient:?Larry COLEMAN Provider:?Estela Bell DPM :1940???Age:83 Y???Sex:Male Antolin e:03/07/2024 Address:[address] [place], [place] [id number] Pcp:TUSHAR Jiang Subjective: * Chief Complaints: * [...] instrumentation by the physician of record - 30633.?Nail Reduction:?Nail Reduction?(-19) Trimming of all non-dystrophic nails [...] healthy nail plate or bed tissue - 35614.? * Procedure Codes:?21786 TRIM SKIN LESIONS, 2 TO 4, Modifiers: XS 82474 TRIM NAIL(S), Modifiers: XS * Preventive Medicine:? [...] Bell DPM Date:?2024 Generated for Hector martinez/Eliud/Annemariesmitting on:?05/31/2024 08:59 AM EDT History and Physical [...] stocking fashion, no fissure(s) present, B/L Orthopedic FOOTWEAR EVALUATION: fair condition General Examination GENERAL APPEARANCE: Reveals [...]
--- OUTSIDE RECORDS SUMMARY | 2024-05-31 09:00 | XMS_ITS ---
Author Organization [facility] Address [address] [place] [address] Care Team Providers Care Ehs Engineer Name Role Phone Cristhian Garcia Primary Care Provider Unav ailable Black, Estela Unavailable [phone] Allergies No Known Allergies REASON FOR VISIT [...] Ordered Date Performed Result Body Sit e 74588-RUJG SKIN LESIONS, 2 TO 4 08/31/2023 N/A 06784-MQMK NAIL(S) 08/31/2023 N/A Encounters Encounter Location Date Provider Diagnosis [facility] [address] [place] [address] 08/31/2023 Estela Ray Type 2 diabetes mellitus with diabetic polyneuropathy E11.42 Assessments Encounter Date Diagnosis (ICD Code) Assessment Notes Treatment Notes Treatment Clinical Notes Section Notes 08/31/2023 Type 2 diabetes mellitus with diabetic polyneuropathy (ICD-10 - E11.42) Plan Of Treatment Pending Test Test Name Order Date 12886-DPGL SKIN LESIONS, 2 TO 4 08/31/19 03494-XNMC NAIL(S) 08/31/2023 Next Appt Details Follow Up: prn, Reason: Provider Name:Estela Moran Ray , 09/05/2024 09:00:00 AM, [address] [place] [address], [id number], Procedure Notes * Category Sub-Category Detail Notes Keratoma Treatment Parring or Cutting o f Benign Hyperkeratotic Lesion(s) 51640 (2-4 Lesions) - The Benign hyperkeratotic lesions, as described above were pared, and/or cut utilizing a sterile #15 blade, tissue nippers, and/or dremel Nail Reduction Nail Reduction Trimming of non- dystrophic nails performed to reduce/remove overall nail length and girth, by manual and electrical means with use of a nail nipper and/or dremel, to more viable healthy nail plate or bed tissue 6-10 (52266) Progress Notes * Larry COLEMAN LDOB:[birth year] (83 yo M)Acc No.[id number]:08/31/2023 Progress Note Patient:?Larry COLEMAN Provider:?Estela Bell DPM :1940???Age:83 Y???Sex:Male Antolin e:08/31/2023 [address]: [id number] Pcp:TUSHAR Jiang Subjective: * Chief Complaints: [...] Procedures:?Keratoma Treatment:?Parring or Cutting of Benign Hyperkeratotic Lesion(s)?05950 (2-4 Lesions) - The Benign hyperkeratotic lesions, as described above were pared, and/or cut utilizing a sterile #15 blade, tissue nippers, and/or dremel.?Nail Reduction:?Nail Reduction?Trimming of non-dystrophic nails performed to reduce/remove overall nail length and girth, by manual and electrical means with use of a nail nipper and/or dremel, to more viable healthy nail plate or bed tissue 6-10 (85376).? * Procedure Codes:?26261 TRIM SKIN LESIONS, 2 TO 4, Modifiers: XS 20786 TRIM NAIL(S), Modifiers: XS * Follow Up:?prn * Images: * Sign off status: Completed true * Provider:?Estela Bell DPM Date:?2023 Generated for Hector martinez/Eliud/Rebeccaitting on:?05/31/2024 09:00 AM EDT History and Physical Notes * [...] TA, T5,Medial plantar, Heel, B/L , Orthopedic FOOTWEAR EVALUATION: fair condition General Examination [...]
--- OUTSIDE RECORDS SUMMARY | 2024-05-31 09:01 | XMS_ITS ---
Author Organization [facility] Address [address] [place] [address] Care Team Providers Care Hay Stacker Name Role Phone TOMMY CHAPIN Primary Care Provider Kris Tate [phone] CT Encounters Encounter Location Date Provider Diagnosis [facility] [address] [place] [address] 12/21/2023 Kris Infante Plan Of Treatment Next Appt Details Provider Name:Kris Infante , 04/24/2025 10:00:00 AM, [address], [address], [place], [address], Progress Notes * KRIS COLEMAN LDOB:[birth year] (83 yo M)Acc No.[id number]:12/21/2023 Patient:?KRIS COLEMAN :1940???Age:83 Y???Sex:Male Address:[address] [place] [address], [address] * true * Date:? Generated for Printi juan/Eliud/eTransmitting on:?05/31/2024 09:00 AM EDT
--- OUTSIDE RECORDS SUMMARY | 2024-05-31 09:01 | XMS_ITS | Patient Health Record ---
Author Organization [facility] Address [address] [place] [address] Care Team Providers Care Photo Tube Assembler Name Role Phone Cristhian Garcia Primary Care Provider Unav ailable Black, Estela Unavailable [phone] Allergies No Known Allergies Reason For Referral [...] Problem Acquired hammer toe of right foot (5806941633797937 ) Other hammer toe(s) (acquired), right foot (M20.41) Active confirmed Problem Acquired hammer toe of left foot (3293086956341429 ) Other hammer toe(s) (acquired), left foot (M20.42) Active confirmed Problem Polyneuropathy due to type 2 diabetes mellitus (611002750) Type 2 diabetes mellitus with diabetic polyneuropathy (E11.42) Active confirmed Vital Signs Blood pressure diastolic 70 mm Hg 03/07/2024 Height 5 ft 6 in in 03/07/2024 Blood pressure systolic 120 mm Hg 03/07/2024 Weight 140 lbs 03/07/2024 BMI 22.59 kg/m2 03/07/2024 Procedures Procedure Date Ordered Date Performed Result Body Sit e 92945-LTJK SKIN LESIONS, 2 TO 4 08/31/2023 N/A 83389-TNFV NAIL(S) 08/31/2023 N/A 00616-XBAB SKIN LESIONS, 2 TO 4 03/07/2024 N/A 75947-JVXH NAIL(S) 03/07/2024 N/A Encounters Encounter Location Date Provider Diagnosis [facility] [address] [address] 08/31/2023 Estela Black Type 2 diabetes mellitus with diabetic polyneuropathy E11.42 [facility] [address] [address] 03/07/2024 Estela Black Type 2 diabetes mellitus [...] Treatment Pending Test Test Name Order Date 36486-HAON SKIN LESIONS, OVER 4 12/07/19 11 74665-JUKB SKIN LESIONS, OVER 4 06/26/19 13 73314-IUTO SKIN LESIONS, OVER 4 01/01/20 13 07411-TCRR SKIN LESIONS, OVER 4 07/26/19 14 63263-XPQH SKIN LESIONS, OVER 4 01/16/20 14 48927-UPVE SKIN LESIONS, OVER 4 07/17/19 15 46023-WKFZ SKIN LESIONS, 2 TO 4 01/15/20 15 58913-VBIT SKIN LESIONS, 2 TO 4 12/22/19 12 21200-PBDE SKIN LESIONS, 2 TO 4 06/20/19 12 41224-EOQG SKIN LESIONS, 2 TO 4 07/20/19 16 91058-KSCL SKIN LESIONS, 2 TO 4 01/18/20 16 25776-LPAB SKIN LESIONS, 2 TO 4 07/19/19 17 69918-DINZ SKIN LESIONS, 2 TO 4 01/24/20 17 39408-IEMG SKIN LESIONS, 2 TO 4 01/16/20 18 78605-XMOE SKIN LESIONS, 2 TO 4 08/21/19 19 19227-ZQKU SKIN LESIONS, 2 TO 4 02/25/19 20 66519-GXIR SKIN LESIONS, 2 TO 4 08/08/19 20 44409-OBWO SKIN LESIONS, 2 TO 4 02/03/20 20 39905-IUAI SKIN LESIONS, 2 TO 4 07/21/19 21 13714-FYHO SKIN LESIONS, 2 TO 4 02/22/19 22 67491-HWZY SKIN LESIONS, 2 TO 4 08/31/19 22 34529-PSUH SKIN LESIONS, 2 TO 4 02/24/19 23 29934-CHZX SKIN LESIONS, 2 TO 4 08/26/19 23 31041-IKOE SKIN LESIONS, 2 TO 4 03/02/19 24 43490-INSC SKIN LESIONS, 2 TO 4 08/31/19 24 83201-GCQD SKIN LESIONS, 2 TO 4 03/07/19 25 97330-CKZF NAIL(S) 03/07/2024 47897-LTTK NAIL(S) 08/31/2023 54866-EIMX NAIL(S) 03/02/2023 21883-PZNS NAIL(S) 08/25/2022 73054-SBUV NAIL(S) 02/24/2022 64141-JRIZ NAIL(S) 08/30/2021 26793-KTOL NAIL(S) 02/22/2021 02772-YLQD NAIL(S) 07/20/2020 87039-YNNY NAIL(S) 02/03/2020 76357-EXDP NAIL(S) 08/08/2019 66793-VDPE NAIL(S) 02/25/2019 58673-JGAX NAIL(S) 08/20/2018 53358-QJRN NAIL(S) 01/15/2018 43183-CTBG NAIL(S) 07/18/2016 36593-XXFO NAIL(S) 01/18/2016 00987-CMZU NAIL(S) 07/20/2015 75447-HYHE NAIL(S) 12/22/2011 08261-ISZH NAIL(S) 12/06/2010 07666-RGSB NAIL(S) 06/20/2011 92517-TKPQ NAIL(S) 06/25/2012 29068-ZIZL NAIL(S) 12/31/2012 43319-FAQO NAIL(S) 01/14/2015 60996-KMQZ NAIL(S) 07/16/2014 68301-SMBF NAIL(S) 01/15/2014 17925-AQRR NAIL(S) 07/25/2013 I8215-CXHEWQVY DYSTROPHIC NAILS ANY # Next Appt Details Provider Name:Estela Bell , 09/05/2024 09:00:00 AM, [address] [place], [address], Insurance Providers Payer Name Payer Address Payer Phone Subscriber Number Group Number Insured Name Patient Relationship to Insured Coverage Start Date Coverage End Date Medicare [facility] [address] [place] [address] [id number] Larry Pichardo Self - patient is the insured [employer] [address] [place] [address] [id number] Larry Pichardo Self - patient is the insured Medical (General) History Medical History History ICD Code mumps measles hypertension diabetic chicken pox cancer Cholesterol Surgical History Surgery Date(Month/Year) opened artery 08/08/2018 cataract surgery
--- OUTSIDE RECORDS SUMMARY | 2024-05-31 09:01 | XMS_ITS | Clinical Summary ---
Author Organization [facility] Address [address] [address] Phone Care Team Providers Care Brush Maker Machine Name Role Phone Cristhian Durán NP Primary Care Provider [phone] Allergies No known active allergies Medications atorvastatin [...] in the evening. 180 tablet 3 06/09/2023 Active Active Problems Problem Noted Date Diagnosed Date Vitamin D deficiency, not otherwise specified Peripheral arterial occlusive disease 05/15/2024 Personal history of prostate cancer 05/15/2024 Abdominal aortic aneurysm wi thout rupture, not otherwise specified 05/15/2024 Hypomagnesemia 08/03/2022 Stage 3b chronic kidney disease 05/09/2022 Diabetes mellitus, not otherwise specified 05/09 Hypertension 05/09/2022 Encounters Date Type Department Care Team Description 05/16/2024 10:20 AM EDT Office Visit [facility] [address] [address] Hawk Aiken MD Stage 3b chronic kidney disease (HCC) (Primary Dx); Hypomagnesemia; Hypertension; Diabetes mellitus, not otherwise specified (HCC); Vitamin D deficiency, not otherwise specified; Personal history of prostate cancer; Peripheral arterial occlusive disease (HCC); Abdominal aortic aneurysm without rupture, not otherwise specified (HCC) 05/16/2024 Orders Only [facility] [address] [address] Hawk Aiken MD Stage 3b chronic kidney disease (HCC); Hypomagnesemia; Hypertension; Diabetes mellitus, not otherwise specified (HCC) from Last 3 Months Immunizations Immunization Administration Dates Next Due Influenza (IM) Preservative [...] Sign Reading Time Taken Comments Blood Pressure 134/70 05/16/2024 10:19 AM EDT Pulse 88 05/16/2024 10:19 AM EDT Temperature - - Respiratory Rate - - Oxygen Saturation 99% 05/16/2024 10:19 AM EDT Inhaled Oxygen Concentration - - Weight 73.5 kg (162 lb) 05/16/2024 10:19 AM EDT Height 170.2 cm (5' 7 ) 11/16/2023 9:50 AM EDT Body Mass Index 25.37 11/16/2023 9:50 AM EDT Plan of Treatment Upcoming Encounters Date Type Department Care Team (Late st Contact Info) Description 11/19/2024 10:40 AM EDT [facility] Visit [facility] [address] [address] Hawk Aiken MD [address] [address] Health Maintenance Due Date Last Done Comments Diabetes: Hemoglobin A1C 02/21/2022 Diabetes: Ophthalmology Exam 02/21/2022 Diabetes: Pedal Pulse Checked 02/21/2022 Diabetes: Sensory Foot Exam 02/21/2022 Diabetes: Visual Foot Exam 02/21/2022 Influenza Vaccine (Season Ended) 2024 10/14/2020, 12/16/2019, 01/14/2019, Additional history exists Pneumococcal Vaccine: 50+ Years Completed 12/10/2019, 03/03/2016 Hepatitis B Vaccine Aged Out No longe r eligible based on patient's age to complete this topic Procedures Procedure Name Priority Date/Time Associated Diagnosis Comments PTH, INTACT (HC) Routine 05/07/2024 10:4 1 AM EDT VITAMIN D 25 HYDROXY Routine 05/07/2024 10:41 AM EDT Stage 3b chronic kidney disease (HCC) Hypomagnesemia Hypertension Diabetes mellitus, not otherwise specified (HCC) PHOSPHATE ( PHOSPHORUS) Routine 05/07/2024 10:41 AM EDT Stage 3b chronic kidney disease (HCC) Hypomagnesemia Hypertension Diabetes mellitus, not otherwise specified (HCC) URIC ACID Routine 05/07/2024 10:41 AM EDT Stage 3b chronic kidney disease (HCC) Hypomagnesemia Hypertension Diabetes mellitus, not otherwise specified (HCC) COMPREHENSIVE METABOLIC PANEL Routine 05/07/2024 10:41 AM EDT Stage 3b chronic kidney disease (HCC) Hypomagnesemia Hypertension Diabetes mellitus, not otherwise specified (HCC) CBC AND DIFFERENTIAL Routine 05/07/2024 10:05 AM EDT Stage 3b chronic kidney disease (HCC) Hypomagnesemia Hypertension Diabetes mellitus, not otherwise specified (HCC) PROTEIN / CREATININE RATIO, URINE Routine 05/07/2024 10:02 AM EDT Stage 3b chronic kidney disease (HCC) Hypomagnesemia Hypertension Diabetes mellitus, not otherwise specified (HCC) from Last 3 Months Results * PTH, Intact (05/07/2024 10:41 AM EDT) Parathyroid Hormone, Intact 22.9 8.7 - 77.1 pg/mL See order comments 05/07/2024 10:4 1 AM EDT 05/07/2024 10:41 AM EDT us Hawk Aiken MD LAB [id number] SOLICITED RESULTS Final Result VIRIDIANA See order comments [place] [address] * Vitamin D 25 Hydroxy (05/07/2024 10:41 AM EDT) Vitamin D, 25-Hydroxy 54.2 >30 ng/mL See order comments Comment: Health Based Reference Values* < 20 ??ng/mL ??Deficient 20-30 ng/mL ??Insufficient > 30 ??ng/mL ??Sufficient *Zo ECKERT. N Engl J Med. 2007;357:266-280 There is no well-established upper level of normal vitamin D levels. Some laboratories use 50 ng/mL as an upper limit of normal. However, toxicity is patient-dependent and may occur at any level. Careful correlation with the patient's presentation is necessary and, if there is concern for vitamin D toxicity, treatment should be considered irrespective of the serum level. Care must be taken in interpreting Vitamin D results from different laboratories and methodologies. ??Published data demonstrated that results from patients undergoing hemodialysis may show a negative bias when tested with various automated 25-OH vitamin D assays when compared to LC-MS/MS. When testing samples from patients whose predominant form of Vitamin D is Vitamin D2, such as patients receiving Vitamin D2 supplementation, results that are subtherapeutic should be confirmed with another method such as LC-MS/MS. Blood (Blood, Venous) 05/07/2024 10:41 AM EDT 05/07/2024 10:41 AM EDT us Hawk Aiken MD LAB BLOOD ORDERABLES Final Re sult Performing Organization Address [facility] de Phone Number PAULINE See order comments [place] [address] * Uric Acid (05/07/2024 10:41 AM EDT) Uric Acid 5.0 3.4 - 7.0 mg/dL See order comments Blood (Blood, Venous) 05/07/2024 10:41 AM EDT 05/07/2024 10:41 AM EDT us Hawk Aiken MD LAB BLOOD ORDERABLES Final Re sult Performing Organization Address [facility] Phone Number PAULINE See order comments [place] [address] * Phosphorus (05/07/2024 10:41 AM EDT) Phosphorus, Serum 2.7 2.7 - 4.5 mg/dL See order comments Blood (Blood, Venous) 05/07/2024 10:41 AM EDT 05/07/2024 10:41 AM EDT us Hawk Aiken MD LAB BLOOD ORDERABLES Final Re sult Performing Organization Address [facility] Phone Number [facility] See order comments [place] [address] * (ABNORMAL) Comprehensive Metabolic Panel (05/07/2024 10:41 AM EDT) Sodium 142 135 - 145 mmol/L See order comments Potassium 4.3 3.3 - 5.1 mmol/L See order comments Chloride 113(H) 96 - 108 mmol/L See order comments Bicarbonate (CO2) 24 22 - 29 mmol/L See order comments Anion Gap 9(L) 12 - 20 See order comments BUN 19(H) 9 - 16 mg/dL See order comments Creatinine Serum 1.37 0.5 - 1.4 mg/dL See order comments eGFR 50 See order comments Comment: Chronic Kidney Disease: ??Estimated GFR < 60 mL/min/1.73m2 Severe Kidney Disease: ??Estimated GFR < 15 mL/min/1.73m2 Glucose 157(H) 60 - 115 mg/dL See order comments Calcium 9.4 8.4 - 10.2 mg/dL See order comments Total Bilirubin 0.6 0.0 - 1.0 mg/dL See order comments AST (SGOT) 37 5 - 37 U/L See orde r comments ALT (SGPT) 20 0 - 40 U/L See orde r comments Total Protein 6.3(L) 6.5 - 8.0 g/dL See order comments Albumin 3.8 3.5 - 5.0 g/dL See order comments Alkaline phosphatase 34(L) 39 - 117 U/L See order comments Blood (Blood, Venous) 05/07/2024 10:41 AM EDT 05/07/2024 10:41 AM EDT us Hawk Aiken MD LAB BLOOD ORDERABLES Final Re sult [place] See order comments [place] [address] * (ABNORMAL) CBC and Differential (05/07/2024 10:05 AM EDT) WBC 4.9 4.8 - 10.8 X10*3/uL See order comments RBC 4.10(L) 4.60 - 5.80 X10*6/uL See order comments Hgb 12.3(L) 14.0 - 18.0 g/dl See order comments Hematocrit 38.2(L) 42.0 - 52.0 % See order comments MCV 93.2 80.0 - 98.0 fL See order comments MCH 30.0 27.0 - 33.0 pg See order comments MCHC 32.2 31.0 - 36.0 g/dl See order comments RDW 16.2(H) 11.0 - 16.0 % See order comments Platelets 230 160 - 400 X10*3/uL See order comments MPV 10.9 9.4 - 12.4 fL See order comments Neutrophils % Auto 62.5 45 - 73 % See order comments Immature Granulocytes 0.4 0.0 - 0.4 % See order comments Lymphocytes Relative 26.0 20 - 40 % See order comments Monocytes 7.2 2 - 11 % See order comments Eosinophils Relative 3.5 0 - 4 % See order comments Basophils Relative 0.4 0 - 2 % See order comments nRBC Count 0.0 0.0 - 0.2 /100WBC See order comments Neutrophils Absolute 3.1 2.0 - 8.3 x10*3/uL See order comments Immature Grans (Absolute) 0.02 0.00 - 0.03 X10*3/uL See order comments Lymphocytes Absolute 1.3 1.2 - 4.9 X10*3/uL See order comments Monocytes Absolute 0.4 0.1 - 1.2 X10*3/uL See order comments Eosinophils Absolute 0.2 0.0 - 0.4 X10*3/uL See order comments Basophils Absolute 0.0 0.0 - 0.2 X10*3/uL See order comments NRBC Absolute 0.000 0.0 - 0.012 X10*3/uL See order comments Blood (Blood, Venous) 05/07/2024 10:05 AM EDT 05/07/2024 10:05 AM EDT us Hawk Aiken MD LAB BLOOD ORDERABLES Final Re sult [place] See order comments [place] [address] * (ABNORMAL) Protein, Total, Random Urine w/Creatinine (Protein/Creat Ratio) (05/07/2024 10:02 AM EDT) Creatinine, Urine 121.31 mg/dL See order comments Protein Urine Random 17(H) <12 mg/dL See order comments Protein/Creati nine Ratio, Urine 0.14 <0.2 See order comments Comment: The spot urine protein:creatinine ratio may increase to 0.3 during normal . Urine (Urine, Clean Catch) 05/07/2024 10:02 AM EDT 05/07/2024 10:02 AM EDT us Hawk Aiken MD LAB URINE ORDERABLES Final Re sult [place] See order comments [place] [address] from Last 3 Months Insurance Medicare [facility] Medicare [facility] Care Teams Brush Maker Machine Relationship Specialty Start Date End Date Cristhian Durán NP [facility] [place] [address] PCP - General Nurse Practitioner 02/16/22
[2024-05-31] MEDS: iohexoL 350 MG/ML 75 ML INFUS..BTL 85 ML IV (09:18)
== END 2024-05-31 08:39 | disposition home or self-care (01) ==
LOC: HO.CT 08:38
PROVIDERS: PCP Nurse Practitioner Family; Visit Provider Nurse Practitioner Family
DX: E27.8 Other specified disorders of adrenal gland (principal)
CPT/HCPCS: 74170; Q9967

== ENCOUNTER → 2024-05-31 08:40 | Outpatient (BNV) | payer MEDICARE, SELFPAY | PROVIDERS: PCP Nurse Practitioner Family; Visit Provider Radiology Diagnostic Radiology | DX: E27.8 Other specified disorders of adrenal gland (principal) | CPT/HCPCS: 74170 ==

== ENCOUNTER 2024-06-06 08:24 | Outpatient (AMB) | payer MEDICARE, SELFPAY ==
--- NOTE | 2024-06-06 08:38 | AM.OFFVISNUR ---
Intake Visit Reasons: B-12 shot Intake Note: Pt arrived for monthly B-12 injection Marketing And Promotions Manager Required: No Allergies No Known Allergies [No Known Allergies*] Allergy (Verified 06/06/24 08:39) Medication List - Last Reconciled 06/06/24 by Cici Van RN aspirin 81 mg PO DAILY atorvastatin 40 mg PO BEDTIME blood sugar diagnostic ([employer] Ultra Test strips) Use to check blood sugar daily blood sugar diagnostic test BS once a day cholecalciferol (vitamin D3) 25 mcg PO DAILY cyanocobalamin (vitamin B-12) intramuscularly QMONTHLY; Q monthly 30 days diltiazem HCl CD 240 mg PO DAILY fenofibrate 160 mg PO DAILY 90 days fluticasone propionate 50 mcg/actuation 1 spray intranasal DAILY magnesium 200 mg PO BID metformin ER 500 mg PO BID 90 days methylcellulose (laxative) (Citrucel) 500 mg PO DAILY PRN ondansetron HCl 4 mg PO DAILY 90 days pantoprazole 20 mg PO DAILY pioglitazone 30 mg PO DAILY trazodone 50 mg PO DAILY Do you need a note to return to daycare/school/sports/work: No Office Meds cyanocobalamin (vitamin B-12) 1,000 mcg/mL injection solution Performing Provider: JOSH Morales [place]forming Location[place] [facility] Administered by: Cici Van RN on 06/06/24 08:39 Dose Route Admin Location Dispensed Lot Number Expiration Date [facility] Model Maker Fiberglass 1,000 mcg IM left deltoid 1 mL [id number] 11/13/25 0904-9199-27 [facility] Comments: Pt supplied Assessment & Plan Assessment & Plan Orders: Orders AMB Vitamin B12 Injection Patient Supplied Today E53.8 - Deficiency of other specified B group vitamins Medications: New cyanocobalamin (vitamin B-12) 1,000 mcg IM ONCE 1 mL 0RF E53.8 - Deficiency of other specified B group vitamins Coding
--- OUTSIDE RECORDS SUMMARY | 2024-06-06 08:42 | XMS_ITS ---
Author Organization [facility] Address [address] [place] [address] Care Team Providers Care Engine Room Operator Name Role Phone TOMMY CHAPIN Primary Care Provider Kris Tate [phone] Encounters Encounter Location Date Provider Diagnosis [facility] [address] [place] [address] 01/04/2024 Kris Infante Plan Of Treatment Next Appt Details Provider Name:Kris Infante , 04/24/2025 10:00:00 AM, [address], [address], [place], [address], Progress Notes * KRIS COLEMAN LDOB:[birth year] (83 yo M)Acc No.[id number]:01/04/2024 Patient:?KRIS COLEMAN :1940???Age:83 Y???Sex:Male Address:[address] [place] [address], [address] * true * Date:? Generated for Printi ng/Faxing/eTransmitting on:?06/06/2024 08:42 AM EDT
--- OUTSIDE RECORDS SUMMARY | 2024-06-06 08:42 | XMS_ITS | Clinical Summary ---
Author Organization [facility] Address [address] [place] [address] Care Team Providers Care Bag Maker Name Role Phone Unavailable Primary Care Provider [...]
--- OUTSIDE RECORDS SUMMARY | 2024-06-06 08:42 | XMS_ITS ---
Author Organization [facility] Address [address] [facility] [place] [address] Care Team Providers Care Commercial Loan Officer Name Role Phone Cristhian Garcia Primary Care Provider Unav ailable Black, Estela Unavailable [phone] Allergies No Known Allergies REASON FOR VISIT [...] Ordered Date Performed Result Body Sit e 12614-JILB SKIN LESIONS, 2 TO 4 03/02/2023 N/A 47918-UEKI NAIL(S) 03/02/2023 N/A Encounters Encounter Location Date Provider Diagnosis [facility] [address] [address] 03/02/2023 Estela Bell Type 2 diabetes mellitus with diabetic polyneuropathy E11.42 Assessments Encounter Date Diagnosis (ICD Code) Assessment Notes Treatment Notes Treatment Clinical Notes Section Notes 03/02/2023 Type 2 diabetes mellitus with diabetic polyneuropathy (ICD-10 - E11.42) 03/02/2023 Other Plan Of Treatment Pending Test Test Name Order Date 62460-AVCG SKIN LESIONS, 2 TO 4 03/02/19 91902-QBJR NAIL(S) 03/02/2023 Next Appt Details Follow Up: prn, Reason: Provider Name:Estela Bell , 09/05/2024 09:00:00 AM, [address] [place] [address], [phone], Procedure Notes * Category Sub-Category Detail Notes Keratoma Treatment Parring or Cutting o f Benign Hyperkeratotic Lesion(s) 64286 (2-4 Lesions) - The Benign hyperkeratotic lesions, as described above were pared, and/or cut utilizing a sterile #15 blade, tissue nippers, and/or dremel Nail Reduction Nail Reduction Trimming of non- dystrophic nails performed to reduce/remove overall nail length and girth, by manual and electrical means with use of a nail nipper and/or dremel, to more viable healthy nail plate or bed tissue 6-10 (07017) Progress Notes * Larry COLEMAN LDOB:[birth year] (82 yo M)Acc No.[id number]:03/02/2023 Progress Note Patient:?Larry Coleman Provider:?Estela Bell DPM :1940???Age:82 Y???Sex:Male Antolin e:03/02/2023 Address:[address] [place], [place] [address]Carlos [phone] Pcp:TUSHAR Jiang Subjective: * Chief Complaints: * [...] Procedures:?Keratoma Treatment:?Parring or Cutting of Benign Hyperkeratotic Lesion(s)?58346 (2-4 Lesions) - The Benign hyperkeratotic lesions, as described above were pared, and/or cut utilizing a sterile #15 blade, tissue nippers, and/or dremel.?Nail Reduction:?Nail Reduction?Trimming of non-dystrophic nails performed to reduce/remove overall nail length and girth, by manual and electrical means with use of a nail nipper and/or dremel, to more viable healthy nail plate or bed tissue 6-10 (99819).? * Procedure Codes:?72783 TRIM SKIN LESIONS, 2 TO 4, Modifiers: XS 25842 TRIM NAIL(S), Modifiers: XS * Follow Up:?prn * Images: * Sign off status: Completed true * Provider:?Estela Bell DPM Date:?2023 Generated for Hector martinez/Eliud/Mariam on:?06/06/2024 08:42 AM EDT History and Physical Notes * [...]
--- OUTSIDE RECORDS SUMMARY | 2024-06-06 08:42 | XMS_ITS ---
Author Organization [facility] Address [address] [facility] [place] [address] Care Team Providers Care Watch Electrician Name Role Phone Cristhian Garcia Primary Care Provider Unav ailable Black, Estela Unavailable [phone] Allergies No Known Allergies REASON FOR VISIT [...] Ordered Date Performed Result Body Sit e 68229-RUKC SKIN LESIONS, 2 TO 4 03/07/2024 N/A 35736-KGZQ NAIL(S) 03/07/2024 N/A Encounters Encounter Location Date Provider Diagnosis [facility] [place] [address] [place] [address] 03/07/2024 Estela Bell Type 2 diabetes mellitus [...] days Pending Test Test Name Order Date 90346-MEJN SKIN LESIONS, 2 TO 4 03/07/19 24064-BYWK NAIL(S) 03/07/2024 Next Appt Details Follow Up: prn, Reason: Provider Name:Estela Bell , 09/05/2024 09:00:00 AM, [address] [place] [address], [phone], Procedure Notes * Category Sub-Category Detail Notes [...] instrumentation by the physician of record - 62675 Nail Reduction Nail Reduction (-19) Trimming o [...] healthy nail plate or bed tissue - 28988 Progress Notes * Larry COLEMAN LDOB:[birth year] (83 yo M)Acc No.[id number]:03/07/2024 Progress Note Patient:?Larry COLEMAN Provider:?Estela Bell DPM :1940???Age:83 Y???Sex:Male Antolin e:03/07/2024 Address:[address] [place] [address] [place], [place] [address] Pcp:TUSHAR Jiang Subjective: * Chief Complaints: * [...] instrumentation by the physician of record - 40204.?Nail Reduction:?Nail Reduction?(-19) Trimming of all non-dystrophic nails [...] healthy nail plate or bed tissue - 12552.? * Procedure Codes:?62294 TRIM SKIN LESIONS, 2 TO 4, Modifiers: XS 76670 TRIM NAIL(S), Modifiers: XS * Preventive Medicine:? [...] Bell DPM Date:?2024 Generated for Hector martinez/Eliud/Annemariesmitting on:?06/06/2024 08:42 AM EDT History and Physical [...]
--- OUTSIDE RECORDS SUMMARY | 2024-06-06 08:42 | XMS_ITS ---
Author Organization [facility] Address [address] [place] [address] Care Team Providers Care Pharmacy Aide Name Role Phone JAVIDAnabela TOMMY Primary Care Provider Kris Tate Unavailable [phone] Allergies No Known Allergies REASON FOR VISIT [...] needed Oral Once a day Not-Taking Nasal [place] 0.05 % 4 sprays (2 sprays in [...] 04/23/2024 Encounters Encounter Location Date Provider Diagnosis [facility] [address] [place] [address] 04/23/2024 Kris Infante Diverticulitis of sm all [...] Name:Kris Infante , 04/24/2025 10:00:00 AM, [address] [facility], [address], [place], [address], Progress Notes * KRIS COLEMAN LDOB:[birth year] (84 yo M)Acc No.[id number]:04/23/2024 Progress Notes Patient:KRIS GIRON Provider:?Kris Infante MD :1940???Age:84 Y???Sex:Male Antolin e:04/23/2024 Address:[address] [place] [address] Pcp:TOMMY CHAPIN Subjective: * Chief Complaints: * [...] 1 CAPSULE BY MOUTH EVERY MORNING Not-Taking/PRNNasal [place] 0.05 % Solution 4 sprays (2 sprays in each nostril) Nasally Twice a day Famotidine 40 MG Tablet 1 tablet at bedtime as needed Oral Once a day Medication List reviewed and reconciled with the patientNot-Taking/PRN Nasal [place] 0.05 % Solution 4 sprays (2 sprays [...] * Treatment: * Procedure Codes:?1036F TOBAC CO NON-FTLSP8828 BP SCR NOT PRFRM REC REASON NOS * Preventive Medicine:? ??Screenings:?Fall Risk Screening?Fall Risk Assessment:?No falls in the past year,?Screening:?No falls in the past year,?Assessment:?Not performed, no reason specified,?Plan of Care:?Not documented, no reason specified.? * Follow Up:?1 Year * * Sign off status: Completed true * Provider:?Kris Infante MD Date:? 025 Generated for Printi ng/Eliud/eTransmitting on:?06/06/2024 08:42 AM EDT History and Physical [...]
--- OUTSIDE RECORDS SUMMARY | 2024-06-06 08:43 | XMS_ITS ---
Author Organization [facility] Address [address] [place] [address] Care Team Providers Care Diver'S Tender Name Role Phone TOMMY CHAPIN Primary Care Provider Kris Tate [phone] Encounters Encounter Location Date Provider Diagnosis [facility] [address] [place] [address] 12/21/2023 Kris Infante Plan Of Treatment Next Appt Details Provider Name:Kris Infante , 04/24/2025 10:00:00 AM, [address] [facility], [address], [place], [address], Progress Notes * KRIS COLEMAN LDOB:[birth year] (83 yo M)Acc No.[id number]:12/21/2023 Patient:?KRIS COLEMAN :1940???Age:83 Y???Sex:Male Address:[address] [place] [address], [address] * true * Date:? Generated for Printi juan/Eliud/eTransmitting on:?06/06/2024 08:43 AM EDT
--- OUTSIDE RECORDS SUMMARY | 2024-06-06 08:43 | XMS_ITS | Patient Health Record ---
Author Organization [facility] Address [address] [place] [address] Care Team Providers Care Food Assembler Name Role Phone TOMMY DURÁN Primary Care Provider Kris Tate Unavailable [phone] Allergies No Known Allergies Results Component Value Reference Range Notes Electrolytes Reviewed date:06/08/2023 06:57:15 PM Interpretation: Performing Lab:[facility], [address] [place] [address] Notes/Report: Sodium 140 135-145 mmol/L Potassium 4.2 3.3-5.1 mmol/L Chloride 108 96-108 mmol/L Carbon Dioxide 23 22-29 mmol/L Anion Gap 13 12-20 Creatinine Reviewed date:06/08/2023 06:56:59 PM Interpretation: Performing Lab:[facility], [address] [place] [address] Notes/Report: Creatinine 1.42 0.5-1.4 mg/dL Estimated Glomerular Filt Rate 48 NOTE: For -Lib[place] individuals, multiply the result by 1.210. Chronic Kidney Disease: Estimated GFR < 60 mL/min/1.73m2 Severe Kidney Disease: Estimated GFR < 15 mL/min/1.73m2 Ferritin Reviewed date:08/24/2023 07:44:13 PM Interpretation: Performing Lab:[facility], [address] [place] [address] Notes/Report: Ferritin 56 20-250 ng/mL Vitamin B12 and Folate Reviewed date:08/11/2023 05:53:39 PM Interpretation: Performing Lab:[facility], [address] [place] [address] Notes/Report: Vitamin B12 > 2000 200-900 pg/mL NORMAL 200-900 PG/ML INDETERMINATE 160-199 PG/ML DEFICIENT < 160 PG/ML Folate 8.1 > or = 4.0 ng/mL Reference Values: > or = 4.0 ng/mL < 4.0 ng/mL suggests folate deficiency Methotrexate, aminopterin and folinic acid (leucovorin) are chemotherapeutic agents whose molecular structures are similar to folate; therefore, the [employer] folate assay cannot be used for patients using these drugs. Complete Blood Count Auto Di ff Reviewed date:06/13/2023 06:06:26 PM Interpretation: Performing Lab:[facility], [address] [place] [address] Notes/Report: White Blood Count 7.7 4.8-10.8 X10*3/uL [...] te Reviewed date:06/08/2023 06:56:50 PM Interpretation: Performing Lab:[address] [address] Notes/Report: Erythrocyte Sedimentation Rate 30 0-15 MM/HR Patients with polycythemia and many hemoglobin abnormalities may have depressed sed rates whereas patients with anemia may have elevated sed rates. Liver Panel Reviewed date:06/08/2023 06:56:30 PM Interpretation: Performing Lab:[address] [address] Notes/Report: Bilirubin Total 0.6 0.0-1.0 mg/dL Bilirubin Direct 0.3 0.0-0.5 mg/dL Aspartate Amino Transferase 15 5-37 U/L Alanine Aminotransferase 8 0-40 U/L Total Protein 6.8 6.5-8.0 g/dL Albumin Level 3.6 3.5-5.0 g/dL Alkaline Phosphatase 39 39-117 U/L Blood Urea Nitrogen Reviewed date:06/08/2023 06:56:37 PM Interpretation: Performing Lab:[facility], [address] [place] [address] Notes/Report: Blood Urea Nitrogen 23 9-16 mg/dL C Reactive Protein Reviewed date:06/14/2023 10:05:28 PM Interpretation: Performing Lab:[facility], [address] [place] [address] Notes/Report: C Reactive Protein 15.47 < or = 0.50 mg/dL CT abdomen pelvis wo con Reviewed date:06/14/2023 10:03:37 PM Interpretation: Performing Lab: Notes/Report: [address] [address] [address] Scan Report Signed Patient: Kris Coleman MR#: [id number] : 1940 Acct:[id number] Age/Sex: 83 / M ADM Date: 06/13/23 Loc: HO.CT Attending Dr: Kris Infante MD Ordering Physician: Kris Infante Date of Service: 06/13/23 Procedure(s): CT abdomen pelvis wo IV con Accession Number(s): [id number] cc: Tommy Durán [facility]; Kris Infante EXAMINATION: CT ABDOMEN AND [...] in OV> 06/14/23 1839 DD/ 1156 TD/TT: Embedded Systems Software Developer: [place] [address] [address] Scan Report Signed Patient: Kris Coleman MR#: [id number] : 1940 Acct:[id number] Age/Sex: 83 / M ADM Date: 06/13/23 Loc: HO.CT Attending Dr: Kris Infante MD Ordering Physician: Kris Infante Date of Service: 06/13/23 Procedure(s): CT abdomen pelvis wo IV con Accession Number(s): [id number] cc: Tommy Durán [employer]; Kris Infante EXAMINATION: CT ABDOMEN AND PELVI [...] in OV> 06/14/23 1839 DD/ 1156 TD/TT: Embedded Systems Software Developer: CT abdomen pelvis w con Reviewed date:08/10/2023 06:00:05 PM Interpretation: Performing Lab: Notes/Report: [address] [address] [address] Scan Report Signed Patient: Kris Coleman MR#: [id number] : 1940 Acct:[id number] Age/Sex: 83 / M ADM Date: 08/04/23 Loc: HO.CT Attending Dr: Kris Infante MD Ordering Physician: Kris Infante Date of Service: 08/04/23 Procedure(s): CT abdomen pelvis w IV con Accession Number(s): [id number] cc: Tommy Durán [facility]; Kris Infante EXAMINATION: CT ABDOMEN AND [...] in OV> 08/04/23 1616 DD/ 1359 TD/TT: Embedded Systems Software Developer: [address] [address] [address] Scan Report Signed Patient: Kris Coleman MR#: [id number] : 1940 Acct:[id number] Age/Sex: 83 / M ADM Date: 08/04/23 Loc: HO.CT Attending Dr: Kris Infante MD Ordering Physician: Kris Infante Date of Service: 08/04/23 Procedure(s): CT abdomen pelvis w IV con Accession Number(s): [id number] cc: Tommy Durán [facility]-; Kris Infante EXAMINATION: CT ABDOMEN AND PELVI [...] in OV> 08/04/23 1616 DD/ 1359 TD/TT: Embedded Systems Software Developer: CARLOS Complete Blood Count Auto Di ff Reviewed date:08/11/2023 05:10:58 PM Interpretation: Performing Lab:[facility], [address] [place] [address] Notes/Report: White Blood Count 5.2 4.8-10.8 X10*3/uL [...] te Reviewed date:08/11/2023 05:53:06 PM Interpretation: Performing Lab:[facility], [address] [place] [address] Notes/Report: Erythrocyte Sedimentation Rate 4 0-15 MM/HR Patients with polycythemia and many hemoglobin abnormalities may have depressed sed rates whereas patients with anemia may have elevated sed rates. Liver Panel Reviewed date:08/11/2023 05:53:16 PM Interpretation: Performing Lab:[facility], [address] [place] [address] Notes/Report: Bilirubin Total 0.3 0.0-1.0 mg/dL Bilirubin Direct 0.1 0.0-0.5 mg/dL Aspartate Amino Transferase 24 5-37 U/L Alanine Aminotransferase 13 0-40 U/L Total Protein 6.8 6.5-8.0 g/dL Albumin Level 3.9 3.5-5.0 g/dL Alkaline Phosphatase 37 39-117 U/L IRON PROFILE Reviewed date:08/11/2023 05:53:25 PM Interpretation: Performing Lab:[facility], [address] [place] [address] Notes/Report: Iron 56 45-160 mcg/dL Total Iron Binding Capacity 351 228-428 mcg/dL Percent Iron Saturation 16 15-50 % Unsaturated Iron Binding 295 C Reactive Protein Reviewed date:08/11/2023 05:53:31 PM Interpretation: Performing Lab:[facility], [address] [place] [address] Notes/Report: C Reactive Protein < 0.10 < or = 0.50 mg/dL Prostate Specific Antigen Reviewed date:08/11/2023 05:52:59 PM Interpretation: Performing Lab:[facility], [address] [place] [address] Notes/Report: Prostate Specific Antigen 0.83 <0.05-4.0 ng/mL PSA methodology: Keller Alinity i Chemiluminescent Microparticle Immunoassay (CMIA) CT abdomen pelvis wo con Reviewed date:12/21/2023 04:34:52 PM Interpretation: Performing Lab: Notes/Report: [address] [address] [address] Scan Report Signed Patient: Kris Coleman MR#: [id number] : 1940 Acct:[id number] Age/Sex: 83 / M ADM Date: 12/15/23 Loc: HO.CT Attending Dr: Kris Infante MD Ordering Physician: Kris Infante MD Date of Service: 12/15/23 Procedure(s): CT abdomen pelvis wo IV con Accession Number(s): [id number] cc: Tommy Durán [employer] [employer]; Kris Infante MD EXAMINATION: CT ABDOMEN AND [...] Barrera MD 12/15/2023 04:32 PM EDT [id number] Dictated By: Adrian Barrera MD Signed By: <Electronically signed by Adrian Barrera MD in OV> 12/15/23 1632 DD/ 1335 TD/TT: 12/15/23 1335 Embedded Systems Software Developer: [place] [address] CT Scan Report Signed Patient: Kris Coleman MR#: [id number] : 1940 Acct:[id number] Age/Sex: 83 / M ADM Date: 12/15/23 Loc: HO.CT Attending Dr: Kris Infante MD Ordering Physician: Kris Infante MD Date of Service: 12/15/23 Procedure(s): CT abdomen pelvis wo IV con Accession Number(s): [id number] cc: Tommy Durán [facility]; Kris Infante MD EXAMINATION: CT ABDOMEN [...] OV> 12/15/23 1632 DD/ 34 TD/TT: 12/15/231334 Embedded Systems Software Developer: Complete Blood Count Auto Di ff Reviewed date:01/04/2024 06:22:26 PM Interpretation: Performing Lab:[address] [address] Notes/Report: White Blood Count 4.0 4.8-10.8 X10*3/uL [...] Panel Reviewed date:01/04/2024 06:22:38 PM Interpretation: Performing Lab:[facility], [address] [place] [address] Notes/Report: Bilirubin Total 0.5 0.0-1.0 mg/dL Bilirubin Direct 0.2 0.0-0.5 mg/dL Aspartate Amino Transferase 39 5-37 U/L Slight Hemolysis.Interpret result with caution. Alanine Aminotransferase 19 0-40 U/L Total Protein 6.2 6.5-8.0 g/dL Albumin Level 3.7 3.5-5.0 g/dL Alkaline Phosphatase 42 39-117 U/L Basic Metabolic Panel Reviewed date:01/04/2024 06:24:42 PM Interpretation: Performing Lab:[facility], [address] [place] [address] Notes/Report: Sodium 142 135-145 mmol/L Potassium 4.5 [...] PROFILE Reviewed date:01/04/2024 12:39:25 PM Interpretation: Performing Lab:[facility], [address] [place] [address] Notes/Report: Iron 83 45-160 mcg/dL Slight Hemolysis.Interpret result with caution. Total Iron Binding Capacity 356 228-428 mcg/dL Percent Iron Saturation 23 15-50 % Unsaturated Iron Binding 273 Ferritin Reviewed date:01/04/2024 06:24:51 PM Interpretation: Performing Lab:[facility], [address] [place] [address] Notes/Report: Ferritin 53 20-250 ng/mL Free T4 (Free Thyroxine) Reviewed date:01/04/2024 06:24:58 PM Interpretation: Performing Lab:[facility], [address] [place] [address] Notes/Report: Free T4 (Free Thyroxine) 1.17 0.71-1.85 ng/dL TSH reflex Free T4 Reviewed date:01/04/2024 12:39:16 PM Interpretation: Performing Lab:[facility], [address] [place] [address] Notes/Report: TSH reflex Free T4 4.01 0.32-4.0 [...] as directed Orally as directed Active Nasal [place] 0.05 % 4 sprays (2 sprays in [...] W/U Status Risk Notes Problem Epigastric pain (79928101) Epigastric abdominal pain (R10.13) Active confirmed Problem Epigastric pain (72649408) Epigastric pain (R10.13) Active confirmed Problem Perforation and abscess of small intestine co-occurrent and due to diverticulitis (disorder) (238770533) Diverticulitis of small intestine with perforation and abscess without bleeding (K57.00) Active confirmed Problem Diverticulitis of small intestine (39396912) Diverticulitis of small intestine without perforation or abscess without bleeding (K57.12) Active confirmed Problem Nausea (065534624) Nausea (R11.0) Active confir med Problem Anorexia (38279749) Anorexia (R63.0) Active con firmed Problem Early satiety (108867694) Early satiety (R68.81) Active confirmed Problem Anemia (757716195) Anemia (D64.9) Active confir med Problem Gastritis (9369231) Gastritis (K29.70) Active confirmed Problem Chronic fatigue syndrome (27279075) Chronic fatigue (R53.82) Active confirmed Problem Gastroesophageal reflux disease (951711417) GERD (gastroesophageal reflux disease) (K21.9) Active confirmed Problem Loss of appetite (40369635) Decreased appetite (R63.0) Active confirmed Vital Signs Blood pressure diastolic 11 mm Hg 04/23/2024 Height 67 in 04/23/2024 Blood pressure systolic 111 mm Hg 04/23/2024 Weight 162 lbs 04/23/2024 BMI 25.37 kg/m2 04/23/2024 Encounters Encounter Location Date Provider Diagnosis [facility] [address] [place] [address] 06/08/2023 Kris Infante Epigastric abdominal pain R10.13 and Diverticulitis of small intestine with perforation and abscess without bleeding K57.00 [facility] [address] [place] [address] 06/20/2023 Kris Infante Anemia D64.9 and Diverticulitis of small intestine with perforation and abscess without bleeding K57.00 [facility] [address] [place] [address] 10/24/2023 Kris Infante Diverticulitis of sm all intestine with perforation and abscess without bleeding K57.00 ; Anemia D64.9 and Chronic fatigue R53.82 [facility] [address] [place] [address] 04/23/2024 Kris Infante Diverticulitis of sm all intestine with perforation and abscess without bleeding K57.00 [facility] [address] [place] [address] 06/08/2023 Kris Infante [facility] [address] [place] [address] 06/08/2023 Kris Infante [facility] [address] [place] [address] 06/20/2023 Kris Infante [facility] [address] [place] [address] 06/26/2023 Kris Infante Diverticulitis of sm all intestine with perforation and abscess without bleeding K57.00 [facility] [address] [place] [address] 08/01/2023 Kris Infante [facility] [address] [place] [address] 08/10/2023 Kris Infante Diverticulitis of sm all intestine with perforation and abscess without bleeding K57.00 and Anemia D64.9 [facility] [address] [place] [address] 11/16/2023 Kris Infante [facility] [address] [place] [address] 11/20/2023 Kris Infante [facility] [address] [place] [address] 12/05/2023 Kris Infante [facility] [address] [place] [address] 12/21/2023 Kris Infante [facility] [address] [place] [address] 01/04/2024 Kris Infante Assessments Encounter Date Diagnosis [...] protein powder until the meets with his director of labor and delivery next month. I did advise him to [...] protein powder until the meets with his director of labor and delivery next month. I did advise him to [...] protein powder until the meets with his director of labor and delivery next month. I did advise him to [...] ENDOSCOPY 11/17/2021 Next Appt Details Provider Name:Kris Jose Infante , 04/24/2025 10:00:00 AM, [address] [place] [address], [place] [address], [place], [address], Insurance Providers Payer Name Payer Address Payer Phone Subscriber Number Group Number Insured Name Patient Relationship to Insured Coverage Start Date Coverage End Date MEDICARE OF [place] [address] [place] [address] [id number] KRIS BAKER Self - patient is the insured [employer] CLAIMS [address] [place] [address] [phone] [id number] KRIS BAKER Self - patient is the insured Medical (General) History Medical History History ICD Code Kidney stones COPD Prostate cancer NIDDM Hypertension Denies [place],CVA,Lung disease,renal disease Negative colonoscopy > 10 years [...] MARSHAL-followed by vascular surgery, Dr. Soler, at [facility]. He felt this presented more of a chronic issue as opposed to an acute problem. Inflammation and small absce sses in the region of the small bowel seen on the CT scan during the workup for the abdominal pain in April of 2023. This was treated with IV and subsequent oral antibiotics at [facility]. There was the finding of multiple small [...]
--- OUTSIDE RECORDS SUMMARY | 2024-06-06 08:43 | XMS_ITS ---
Author Organization [facility] Address [address] [place] [address] Care Team Providers Care Cdl A Driver Name Role Phone Cristhian Garcia Primary Care Provider Unav ailable Black, Estela Unavailable [phone] Allergies No Known Allergies REASON FOR VISIT [...] Ordered Date Performed Result Body Sit e 76852-OCIW SKIN LESIONS, 2 TO 4 08/31/2023 N/A 30501-PBWP NAIL(S) 08/31/2023 N/A Encounters Encounter Location Date Provider Diagnosis [facility] [place] [address] [place] [address] 08/31/2023 Estela Ray Type 2 diabetes mellitus with diabetic polyneuropathy E11.42 Assessments Encounter Date Diagnosis (ICD Code) Assessment Notes Treatment Notes Treatment Clinical Notes Section Notes 08/31/2023 Type 2 diabetes mellitus with diabetic polyneuropathy (ICD-10 - E11.42) Plan Of Treatment Pending Test Test Name Order Date 40395-ECPG SKIN LESIONS, 2 TO 4 08/31/19 95282-DUBW NAIL(S) 08/31/2023 Next Appt Details Follow Up: prn, Reason: Provider Name:Estela Moran Ray , 09/05/2024 09:00:00 AM, [address] [place] [address], [address], Procedure Notes * Category Sub-Category Detail Notes Keratoma Treatment Parring or Cutting o f Benign Hyperkeratotic Lesion(s) 34647 (2-4 Lesions) - The Benign hyperkeratotic lesions, as described above were pared, and/or cut utilizing a sterile #15 blade, tissue nippers, and/or dremel Nail Reduction Nail Reduction Trimming of non- dystrophic nails performed to reduce/remove overall nail length and girth, by manual and electrical means with use of a nail nipper and/or dremel, to more viable healthy nail plate or bed tissue 6-10 (07492) Progress Notes * Larry COLEMAN LDOB:[birth year] (83 yo M)Acc No.[id number]:08/31/2023 Progress Note Patient:?Larry COLEMAN Provider:?Estela Bell DPM :1940???Age:83 Y???Sex:Male Antolin e:08/31/2023 Address: [place] Pcp:TUSHAR Jiang Subjective: * Chief Complaints: [...] Procedures:?Keratoma Treatment:?Parring or Cutting of Benign Hyperkeratotic Lesion(s)?17459 (2-4 Lesions) - The Benign hyperkeratotic lesions, as described above were pared, and/or cut utilizing a sterile #15 blade, tissue nippers, and/or dremel.?Nail Reduction:?Nail Reduction?Trimming of non-dystrophic nails performed to reduce/remove overall nail length and girth, by manual and electrical means with use of a nail nipper and/or dremel, to more viable healthy nail plate or bed tissue 6-10 (32557).? * Procedure Codes:?12259 TRIM SKIN LESIONS, 2 TO 4, Modifiers: XS 75730 TRIM NAIL(S), Modifiers: XS * Follow Up:?prn * Images: * Sign off status: Completed true * Provider:?Estela Bell DPM Date:?2023 Generated for Hector martinez/Eliud/Rebeccaitting on:?06/06/2024 08:42 AM EDT History and Physical [...]
--- OUTSIDE RECORDS SUMMARY | 2024-06-06 08:43 | XMS_ITS | Patient Health Record ---
Author Organization [facility] Address [address] [place] [address] Care Team Providers Care Corn Cutter Operator Name Role Phone Cristhian Garcia Primary Care Provider Unav ailable Black, Estela Unavailable [phone] Allergies No Known Allergies Reason For Referral [...] Problem Acquired hammer toe of right foot (2202894297570248 ) Other hammer toe(s) (acquired), right foot (M20.41) Active confirmed Problem Acquired hammer toe of left foot (8457902577361421 ) Other hammer toe(s) (acquired), left foot (M20.42) Active confirmed Problem Polyneuropathy due to type 2 diabetes mellitus (034398109) Type 2 diabetes mellitus with diabetic polyneuropathy (E11.42) Active confirmed Vital Signs Blood pressure diastolic 70 mm Hg 03/07/2024 Height 5 ft 6 in in 03/07/2024 Blood pressure systolic 120 mm Hg 03/07/2024 Weight 140 lbs 03/07/2024 BMI 22.59 kg/m2 03/07/2024 Procedures Procedure Date Ordered Date Performed Result Body Sit e 99375-HZDA SKIN LESIONS, 2 TO 4 08/31/2023 N/A 62682-CEUT NAIL(S) 08/31/2023 N/A 31988-NNRU SKIN LESIONS, 2 TO 4 03/07/2024 N/A 35320-YJWI NAIL(S) 03/07/2024 N/A Encounters Encounter Location Date Provider Diagnosis [facility] [address] [address] 08/31/2023 Estela Black Type 2 diabetes mellitus with diabetic polyneuropathy E11.42 [facility] [address] [address] 03/07/2024 Estela Black Type 2 diabetes mellitus [...] Treatment Pending Test Test Name Order Date 96662-MWOT SKIN LESIONS, OVER 4 12/07/19 11 44038-QBIU SKIN LESIONS, OVER 4 06/26/19 13 22755-CTZC SKIN LESIONS, OVER 4 01/01/20 13 98689-HQYC SKIN LESIONS, OVER 4 07/26/19 14 31350-QDPR SKIN LESIONS, OVER 4 01/16/20 14 49467-MXEK SKIN LESIONS, OVER 4 07/17/19 15 89053-QHRO SKIN LESIONS, 2 TO 4 01/15/20 15 42719-XPTX SKIN LESIONS, 2 TO 4 12/22/19 12 13835-RBBK SKIN LESIONS, 2 TO 4 06/20/19 12 91031-WKAQ SKIN LESIONS, 2 TO 4 07/20/19 16 47771-KLZW SKIN LESIONS, 2 TO 4 01/18/20 16 81806-XMFO SKIN LESIONS, 2 TO 4 07/19/19 17 77754-BVVH SKIN LESIONS, 2 TO 4 01/24/20 17 97372-WQPO SKIN LESIONS, 2 TO 4 01/16/20 18 99922-YEUV SKIN LESIONS, 2 TO 4 08/21/19 19 18244-LADG SKIN LESIONS, 2 TO 4 02/25/19 20 03710-NHZX SKIN LESIONS, 2 TO 4 08/08/19 20 07089-IKQJ SKIN LESIONS, 2 TO 4 02/03/20 20 59056-ECBM SKIN LESIONS, 2 TO 4 07/21/19 21 71379-TNPO SKIN LESIONS, 2 TO 4 02/22/19 22 85934-WMQK SKIN LESIONS, 2 TO 4 08/31/19 22 96492-YQFR SKIN LESIONS, 2 TO 4 02/24/19 23 40729-RNBE SKIN LESIONS, 2 TO 4 08/26/19 23 40462-KRUU SKIN LESIONS, 2 TO 4 03/02/19 24 25257-UAMH SKIN LESIONS, 2 TO 4 08/31/19 24 70927-AFDV SKIN LESIONS, 2 TO 4 03/07/19 25 74329-AEPJ NAIL(S) 03/07/2024 59531-NFVA NAIL(S) 08/31/2023 58456-VADH NAIL(S) 03/02/2023 72906-TNGE NAIL(S) 08/25/2022 38049-ARFG NAIL(S) 02/24/2022 08170-MMSK NAIL(S) 08/30/2021 31372-BQZX NAIL(S) 02/22/2021 24118-LDAY NAIL(S) 07/20/2020 39070-UQCC NAIL(S) 02/03/2020 55730-RTYO NAIL(S) 08/08/2019 58082-HQTT NAIL(S) 02/25/2019 98542-DZPA NAIL(S) 08/20/2018 33936-TNJJ NAIL(S) 01/15/2018 84132-WALU NAIL(S) 07/18/2016 06213-ZUSW NAIL(S) 01/18/2016 59874-LMQI NAIL(S) 07/20/2015 42187-GDFN NAIL(S) 12/22/2011 78795-WURN NAIL(S) 12/06/2010 91730-EYEO NAIL(S) 06/20/2011 71251-YVQA NAIL(S) 06/25/2012 71575-JEMA NAIL(S) 12/31/2012 49272-NRQT NAIL(S) 01/14/2015 90254-VUNF NAIL(S) 07/16/2014 66210-DDIG NAIL(S) 01/15/2014 49446-IZVR NAIL(S) 07/25/2013 K2942-LZMLCQIL DYSTROPHIC NAILS ANY # Next Appt Details Provider Name:Estela Bell , 09/05/2024 09:00:00 AM, [address] [place], [address], Insurance Providers Payer Name Payer Address Payer Phone Subscriber Number Group Number Insured Name Patient Relationship to Insured Coverage Start Date Coverage End Date Medicare [facility] [address] [place] [address] [id number] Larry Pichardo Self - patient is the insured [employer] [address] [place] [address] [id number] Larry Pichardo Self - patient is the insured Medical (General) History Medical History History ICD Code mumps measles hypertension diabetic chicken pox cancer Cholesterol Surgical History Surgery Date(Month/Year) opened artery 08/08/2018 cataract surgery
--- OUTSIDE RECORDS SUMMARY | 2024-06-06 08:44 | XMS_ITS | Clinical Summary ---
Author Organization [facility] Address [address] [address] Phone Care Team Providers Care Cloud Architect Name Role Phone Cristhian Durán NP Primary Care Provider [phone] Allergies No known active allergies Medications atorvastatin [...] EDT Office Visit [facility] [address] [address] Hawk Aiken MD Stage 3b chronic kidney disease (HCC) (Primary Dx); Hypomagnesemia; Hypertension; Diabetes mellitus, not otherwise specified (HCC); Vitamin D deficiency, not otherwise specified; Personal history of prostate cancer; Peripheral arterial occlusive disease (HCC); Abdominal aortic aneurysm without rupture, not otherwise specified (HCC) 05/16/2024 Orders Only [facility] [address] [address] Hawk Aiken MD Stage 3b chronic kidney [...] Visit [facility] P.. [address] [address] Hawk Aiken MD [address] [address] Health Maintenance Due Date Last [...] AM EDT us Hawk Aiken MD LAB [id number] SOLICITED RESULTS Final Result [place]IR[place] See order comments [place] [address] * Vitamin D 25 Hydroxy (05/07/2024 10:41 [...] ORDERABLES Final Re sult Performing Organization Address [facility] de Phone Number [place] See order comments [place] [address] * Uric Acid (05/07/2024 10:41 AM EDT) Uric Acid 5.0 3.4 - 7.0 mg/dL See order comments Blood (Blood, Venous) 05/07/2024 10:41 AM EDT 05/07/2024 10:41 AM EDT us Hawk Aiken MD LAB BLOOD ORDERABLES Final Re sult Performing Organization Address [facility] Phone Number [place] See order comments [place] [address] * Phosphorus (05/07/2024 10:41 AM EDT) Phosphorus, Serum 2.7 2.7 - 4.5 mg/dL See order comments Blood (Blood, Venous) 05/07/2024 10:41 AM EDT 05/07/2024 10:41 AM EDT us Hawk Aiken MD LAB BLOOD ORDERABLES Final Re sult Performing Organization Address [facility] Phone Number [facility] See order comments [place] [address] * (ABNORMAL) Comprehensive Metabolic Panel (05/07/2024 10:41 [...] order comments [place] [address] * (ABNORMAL) CBC and Differential (05/07/2024 10:05 [...] order comments [place] [address] * (ABNORMAL) Protein, Total, Random Urine w/Creatinine [...] order comments [place] [address] from Last 3 Months Insurance Medicare [facility] Medicare [facility] Care Teams Cloud Architect Relationship Specialty Start Date End Date Cristhian Durán NP [facility] [place] [address] PCP - General Nurse Practitioner 02/16/22
== END 2024-06-06 08:36 | disposition home or self-care (01) ==
LOC: HO.HMCC 08:25
PROVIDERS: PCP Nurse Practitioner Family; Visit Provider Nurse Practitioner Family
DX: E53.8 Deficiency of other specified B group vitamins (principal)

== ENCOUNTER 2024-06-06 08:24 | Outpatient (REF) | payer MEDICARE, SELFPAY ==
[2024-06-06 11:24] LABS: Cortisol Random 13.2 ug/dL
== END 2024-06-06 08:25 | disposition home or self-care (01) ==
LOC: HO.HMGCLDS 08:24
PROVIDERS: PCP Nurse Practitioner Family; Visit Provider Nurse Practitioner Family
DX: E53.8 Deficiency of other specified B group vitamins (principal); D35.00 Benign neoplasm of unspecified adrenal gland
CPT/HCPCS: 36415; 82533; 96372; J3420

== ENCOUNTER → 2024-06-13 13:25 | Outpatient (BNVA) | payer MEDICARE, SELFPAY | PROVIDERS: PCP Nurse Practitioner Family | DX: Z13.89 Encounter for screening for other disorder (principal) ==

== ENCOUNTER 2024-07-04 09:04 | Outpatient (AMB) | payer MEDICARE, SELFPAY ==
[2024-07-04 09:05] VITALS: BP 132/56; PULSE 86; O2SAT 98; BMI 26.5
--- NOTE | 2024-07-04 09:05 | MHC.OFFVIS ---
Vital Signs 07/04/24 09:05 Height 5 ft 5 in Weight 159 lb 2.78 oz BMI 26.5 BP 132/56 L Blood Pressure Location Rt brachial Position Sitting Pulse 86 Pulse Source Pulse Oximeter Pulse Oximetry (%) 98 Oxygen Delivery Method Room Air Intake Visit Reasons: Benign neoplasm of unspecified adrenal gland Intake Note: New patient internally referred by PCP for Benign Neoplasm of Unspecified Adrenal Gland. Photography Intern Required: No Accompanied by: Spouse Allergies No Known Allergies [No Known Allergies*] Allergy (Verified 07/04/24 09:07) Medication List - Last Reconciled 07/04/24 by Larry Moy MD aspirin 81 mg PO DAILY atorvastatin 40 mg PO BEDTIME blood sugar diagnostic test BS once a day blood sugar diagnostic (MyDoc Ultra Test strips) Use to check blood sugar daily cholecalciferol (vitamin D3) 25 mcg PO DAILY cyanocobalamin (vitamin B-12) intramuscularly QMONTHLY; Q monthly 30 days diltiazem HCl CD 240 mg PO DAILY fenofibrate 160 mg PO DAILY 90 days fluticasone propionate 50 mcg/actuation 1 spray intranasal DAILY magnesium 200 mg PO BID metformin ER 500 mg PO BID 90 days methylcellulose (laxative) (Citrucel) 500 mg PO DAILY PRN ondansetron HCl 4 mg PO DAILY 90 days pantoprazole 20 mg PO DAILY pioglitazone 30 mg PO DAILY trazodone 50 mg PO DAILY HPI Comments Details: The patient is an 84-year-old male presenting with adrenal nodules. Referred for evaluation after incidental findings reported in a CT scan in 2022, which identified mild hypertrophy on the left adrenal gland. Prior imaging from 2009 and 2013 did not mention adrenal abnormalities. The patient denies experiencing spells related to adrenal hormones, such as sweating, headaches, or palpitations. There are no symptoms reported suggesting Thorn[place] syndrome or hormone-related weight changes. He has managed hypertension with Deltiazem and reports occasional lightheadedness. Significant past medical history includes prostate cancer. He denies tuberculosis or recurrent infections. 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 Had CT abdomen/pelvis 05/31/24 for which revealed ADRENAL GLANDS: There is a 1.5 cm adrenal nodule which measures 19.9 HU on the precontrast examination, 72.3 HU on the immediate postcontrast series, and 37.6 HU on the delayed images. This calculates to a 48.0% relative washout and a 66.2% absolute washout, consistent with an adenoma. There is a 1.8 cm left adrenal nodule which measures 14.4 HU on the unenhanced examination, 67.1 HU on the immediate postcontrast series, and 39.9 HU on the delayed images. This calculates to a relative washout of 40.5% and absolute washout of 51.6%. These findings are highly suggestive of an adenoma.. Prior CT dated []revealed. 1.5 cm right adrenal nodule, with washout characteristics consistent with an adenoma. 1.8 cm left adrenal nodule, with washout characteristics highly suggestive of an adenoma. Denies history of spells with headache, flushing, diaphoresis, abdominal pain or diarrhea. Denies any weight gain, frequent infections, easy bruisability, development of violaceous striae. History of HTN, controlled on 1 agents. No history of anticoagulant use. Denies any weight loss, orthostatic symptoms, hypoglycemia. history of prostate CA but no TB. Imaging: Labs: [facility] Medical History Superior mesenteric artery syndrome Elevated serum creatinine Encounter for annual wellness visit (AWV) in Medicare patient Screening PSA (prostate specific antigen) Plantar callus CKD (chronic kidney disease) stage 3, GFR 30-59 ml/min Acquired hammertoes of both feet Type 2 diabetes mellitus without complication, without long-term current use of insulin Eczema Hearing loss Prostate CA HTN (hypertension) PVD (peripheral vascular disease) Carotid artery stenosis COPD (chronic obstructive pulmonary disease) Dyslipidemia Surgical History History of left-sided carotid endarterectomy Status post aortography with runoff History of atherectomy History of angioplasty H/O colonoscopy with polypectomy History of endarterectomy History of cataract surgery History of cataract surgery Family History Father Medical history non-contributory Mother Medical history non-contributory Son No problems noted. Daughter No problems noted. Daughter No problems noted. Social History Housing: House Alcohol intake: current Patient Tobacco Use Status: Former Tobacco user Years Smoked: quit 25 years ago e-Cigarette/Vaping Use: Never Used Second Hand Smoke Exposure: No service: Yes Current occupational status: retired Cognitive needs: No Hearing needs: No Vision needs: No Physical Exam Const Other: There was no cushingoid appearance. Thyroid gland is normal size weighs about 15 g. Lungs are clear to auscultation. Heart is S1-S2. Abdominal exam is benign Assessment & Plan Assessment & Plan (1) Adrenal nodule: Code(s): E27.8 - Other specified disorders of adrenal gland Category: Medical Plan: This is an 84-year-old white male with a history of bilateral adrenal nodules with characteristics of both nodules appear to be benign based on adrenal washout protocol. Rule out hypersecretion of adrenal hormones as well as adrenal insufficiency due to bilateral nodules Plan is to check plasma metanephrines, renin, aldosterone, DHEA-S, a.m. cortisol as well as perform a 1 mg dexamethasone suppression test with measurement of cortisol and dexamethasone. Depending upon the above may consider observing. 1. Adrenal nodules The nodules required a complete endocrine workup to establish if they are active tumor-producing or hormonally related. The CT report notes nodule low density and washout favors a benign nodule. A testing regimen is arranged to establish if any adrenal hormones are being secreted. If tests suggest hormonal activity or cancer, further treatment, possibly surgical, will be considered, though age and health co-morbidities complicate potential surgical approaches. During the visit, I explained the seriousness of potential hormone-secreting adrenal lesions. Available imaging data suggested less aggressive lesion types, with CT characteristics unfavoring malignancy. I discussed planned hormone evaluative tests, indicating the significance of correct administration and timing, specifically dexamethasone suppression testing. Importance of diligence in such tests was emphasized for diagnostic integrity. I communicated that surgical interventions remain contingent upon significant functional or cancerous discoveries. The patient and spouse were advised, confirming understanding on management perspective, supportive lab instruction, and future consults. Long-term prognosis with stable lesions, reasoned role, and limitations of surgery in advanced age addressed collaboratively. The patient had an opportunity to ask questions regarding treatment plan. The patient expressed understanding and agreement with the above treatment plan. The patient is aware they should contact our office by phone for worsening glucose readings or for any low blood sugars which may warrant a change in diabetes medication. Compliance is encouraged with medications and any followup testing/consults which may have been ordered. Patient was informed and verbally consented to the use of an ambient scribe for clinic note documentation during this visit. Orders: Orders Metanephrines, Plasma Today E27.8 - Other specified disorders of adrenal gland Renin Today E27.8 - Other specified disorders of adrenal gland DHEA Sulfate Today E27.8 - Other specified disorders of adrenal gland Cortisol Random Today E27.8 - Other specified disorders of adrenal gland Dexamethasone 1 Week E27.8 - Other specified disorders of adrenal gland Cortisol Random 1 Week E27.8 - Other specified disorders of adrenal gland Aldosterone Today E27.8 - Other specified disorders of adrenal gland Medications: New dexamethasone 1 mg PO ONCE 1 tab 0RF Coding Level of Care Code New Pt Level 4 (07102) Diagnoses Adrenal nodule E27.8
--- OUTSIDE RECORDS SUMMARY | 2024-07-04 09:17 | XMS_ITS ---
Author Organization [facility] Address [address] [place] [address] Care Team Providers Care Yacht Builder Name Role Phone Cristhian Garcia Primary Care Provider Unav ailable Black, Estela Unavailable [phone] Allergies No Known Allergies REASON FOR VISIT [...] Ordered Date Performed Result Body Sit e 22428-CFSG SKIN LESIONS, 2 TO 4 03/02/2023 N/A 84342-IHIN NAIL(S) 03/02/2023 N/A Encounters Encounter Location Date Provider Diagnosis [facility] [address] [address] 03/02/2023 Estela Bell Type 2 diabetes mellitus with diabetic polyneuropathy E11.42 Assessments Encounter Date Diagnosis (ICD Code) Assessment Notes Treatment Notes Treatment Clinical Notes Section Notes 03/02/2023 Type 2 diabetes mellitus with diabetic polyneuropathy (ICD-10 - E11.42) 03/02/2023 Other Plan Of Treatment Pending Test Test Name Order Date 07784-KTRN SKIN LESIONS, 2 TO 4 03/02/19 [id number] NAIL(S) 03/02/2023 Next Appt Details Follow Up: prn, Reason: Provider Name:Estela Bell , 09/05/2024 09:00:00 AM, [address] [place] [address], [phone], Procedure Notes * Category Sub-Category Detail Notes Keratoma Treatment Parring or Cutting o f Benign Hyperkeratotic Lesion(s) 49228 (2-4 Lesions) - The Benign hyperkeratotic lesions, as described above were pared, and/or cut utilizing a sterile #15 blade, tissue nippers, and/or dremel Nail Reduction Nail Reduction Trimming of non- dystrophic nails performed to reduce/remove overall nail length and girth, by manual and electrical means with use of a nail nipper and/or dremel, to more viable healthy nail plate or bed tissue 6-10 (73311) Progress Notes * Larry COLEMAN LDOB:[birth year] (82 yo M)Acc No.[id number]:03/02/2023 Progress Note Patient:?Larry Coleman Provider:?Estela Bell DPM :1940???Age:82 Y???Sex:Male Antolin e:03/02/2023 Address:[address] [place], [place] [phone] Pcp:TUSHAR Jiang Subjective: * Chief Complaints: * [...] Procedures:?Keratoma Treatment:?Parring or Cutting of Benign Hyperkeratotic Lesion(s)?81597 (2-4 Lesions) - The Benign hyperkeratotic lesions, as described above were pared, and/or cut utilizing a sterile #15 blade, tissue nippers, and/or dremel.?Nail Reduction:?Nail Reduction?Trimming of non-dystrophic nails performed to reduce/remove overall nail length and girth, by manual and electrical means with use of a nail nipper and/or dremel, to more viable healthy nail plate or bed tissue 6-10 (68473).? * Procedure Codes:?94582 TRIM SKIN LESIONS, 2 TO 4, Modifiers: XS 20243 TRIM NAIL(S), Modifiers: XS * Follow Up:?prn * Images: * Sign off status: Completed true * Provider:?Estela Bell DPM Date:?2023 Generated for Hector martinez/Eliud/Mariam on:?07/04/2024 09:16 AM EDT History and Physical Notes * [...]
--- OUTSIDE RECORDS SUMMARY | 2024-07-04 09:17 | XMS_ITS | Clinical Summary ---
Author Organization [facility] Address [address] [place] [address] Care Team Providers Care Policy And Planning Manager Name Role Phone Unavailable Primary Care Provider [...]
--- OUTSIDE RECORDS SUMMARY | 2024-07-04 09:17 | XMS_ITS | Patient Health Record ---
Author Organization [facility] Address [address] [place] [address] Care Team Providers Care Insurance Advisor Name Role Phone TOMMY DURÁN Primary Care Provider Kris Tate Unavailable [phone] Allergies No Known Allergies Results Component Value Reference Range Notes Ferritin Reviewed date:08/24/2023 07:44:13 PM Interpretation: Performing Lab:[address] [address] Notes/Report: Ferritin 56 20-250 ng/mL Vitamin B12 and Folate Reviewed date:08/11/2023 05:53:39 PM Interpretation: Performing Lab:[address] [address] Notes/Report: Vitamin B12 > 2000 200-900 pg/mL NORMAL 200-900 PG/ML INDETERMINATE 160-199 PG/ML DEFICIENT < 160 PG/ML Folate 8.1 > or = 4.0 ng/mL Reference Values: > or = 4.0 ng/mL < 4.0 ng/mL suggests folate deficiency Methotrexate, aminopterin and folinic acid (leucovorin) are chemotherapeutic agents whose molecular structures are similar to folate; therefore, the Associate Professor Of Theology folate assay cannot be used for patients using these drugs. CT abdomen pelvis w con Reviewed date:08/10/2023 06:00:05 PM Interpretation: Performing Lab: Notes/Report: [address] [place] [address] CT Scan Report Signed Patient: Kris Coleman MR#: [id number] : 1940 Acct:[id number] Age/Sex: 83 / M ADM Date: 08/04/23 Loc: HO.CT Attending Dr: Kris Infante MD Ordering Physician: Kris Infante Date of Service: 08/04/23 Procedure(s): CT abdomen pelvis w IV con Accession Number(s): [id number] cc: Tommy Durán [facility]; Kris Infante EXAMINATION: CT ABDOMEN AND [...] in OV> 08/04/23 1616 DD/ 1359 TD/TT: Medical Technical Writer: [place] [id number] CT Scan Report Signed Patient: Kris Coleman MR#: [id number] : 1940 Acct:[id number] Age/Sex: 83 / M ADM Date: 08/04/23 Loc: HO.CT Attending Dr: Kris Infante MD Ordering Physician: Kris Infante Date of Service: 08/04/23 Procedure(s): CT abdomen pelvis w IV con Accession Number(s): [id number] cc: Tommy Durán-; Kris Infante EXAMINATION: CT ABDOMEN AND PELVI [...] in OV> 08/04/23 1616 DD/ 1359 TD/TT: Medical Technical Writer: GT Complete Blood Count Auto Di ff Reviewed date:08/11/2023 05:10:58 PM Interpretation: Performing Lab:[facility], [address] [place] [address] Notes/Report: White Blood Count 5.2 4.8-10.8 X10*3/uL [...] te Reviewed date:08/11/2023 05:53:06 PM Interpretation: Performing Lab:[facility], [address] [place] [address] Notes/Report: Erythrocyte Sedimentation Rate 4 0-15 MM/HR Patients with polycythemia and many hemoglobin abnormalities may have depressed sed rates whereas patients with anemia may have elevated sed rates. Liver Panel Reviewed date:08/11/2023 05:53:16 PM Interpretation: Performing Lab:[facility], [address] [place] [address] Notes/Report: Bilirubin Total 0.3 0.0-1.0 mg/dL Bilirubin Direct 0.1 0.0-0.5 mg/dL Aspartate Amino Transferase 24 5-37 U/L Alanine Aminotransferase 13 0-40 U/L Total Protein 6.8 6.5-8.0 g/dL Albumin Level 3.9 3.5-5.0 g/dL Alkaline Phosphatase 37 39-117 U/L IRON PROFILE Reviewed date:08/11/2023 05:53:25 PM Interpretation: Performing Lab:[facility], [address] [place] [address] Notes/Report: Iron 56 45-160 mcg/dL Total Iron Binding Capacity 351 228-428 mcg/dL Percent Iron Saturation 16 15-50 % Unsaturated Iron Binding 295 C Reactive Protein Reviewed date:08/11/2023 05:53:31 PM Interpretation: Performing Lab:[address] [address] Notes/Report: C Reactive Protein < 0.10 < or = 0.50 mg/dL Prostate Specific Antigen Reviewed date:08/11/2023 05:52:59 PM Interpretation: Performing Lab:[address] [address] Notes/Report: Prostate Specific Antigen 0.83 <0.05-4.0 ng/mL PSA methodology: Keller Alinity i Chemiluminescent Microparticle Immunoassay (CMIA) CT abdomen pelvis wo con Reviewed date:12/21/2023 04:34:52 PM Interpretation: Performing Lab: Notes/Report: [address] [address] [address] Scan Report Signed Patient: Kris Coleman MR#: [id number] : 1940 Acct:[id number] Age/Sex: 83 / M ADM Date: 12/15/23 Loc: HO.CT Attending Dr: Kris Infante MD Ordering Physician: Kris Infante MD Date of Service: 12/15/23 Procedure(s): CT abdomen pelvis wo IV con Accession Number(s): [id number] cc: Tommy Durán [facility]-; Kris Infante MD EXAMINATION: CT ABDOMEN AND [...] MD 12/15/2023 04:32 PM EDT Dictated By: Adiran Barrera MD Signed By: <Electronically signed by Adrian Barrera MD in OV> 12/15/23 1632 DD/ 1335 TD/TT: 12/15/23 1335 Medical Technical Writer: [place] [id number] CT Scan Report Signed Patient: Kris Coleman MR#: [id number] : 1940 Acct:[id number] Age/Sex: 83 / M ADM Date: 12/15/23 Loc: HO.CT Attending Dr: Kris Infante MD Ordering Physician: Kris Infante MD Date of Service: 12/15/23 Procedure(s): CT abdomen pelvis wo IV con Accession Number(s): [id number] cc: Tommy DuránP-; Kris Infante MD EXAMINATION: CT ABDOMEN AND [...] Barrera MD 12/15/2023 04:32 PM EDT RP Workstation: [employer] Dictated By: Adrian Barrera MD Signed By: <Electronically signed by Adrian Barrear MD in OV> 12/15/23 1632 DD/ 1335 TD/TT: 12/15/23 1335 Medical Technical Writer: Complete Blood Count Auto Di ff Reviewed date:01/04/2024 06:22:26 PM Interpretation: Performing Lab:[facility], [address] [place] [address] Notes/Report: White Blood Count 4.0 4.8-10.8 X10*3/uL [...] Panel Reviewed date:01/04/2024 06:22:38 PM Interpretation: Performing Lab:[facility], [address] [place] [address] Notes/Report: Bilirubin Total 0.5 0.0-1.0 mg/dL Bilirubin Direct 0.2 0.0-0.5 mg/dL Aspartate Amino Transferase 39 5-37 U/L Slight Hemolysis.Interpret result with caution. Alanine Aminotransferase 19 0-40 U/L Total Protein 6.2 6.5-8.0 g/dL Albumin Level 3.7 3.5-5.0 g/dL Alkaline Phosphatase 42 39-117 U/L Basic Metabolic Panel Reviewed date:01/04/2024 06:24:42 PM Interpretation: Performing Lab:[facility], [address] [place] [address] Notes/Report: Sodium 142 135-145 mmol/L Potassium 4.5 [...] PROFILE Reviewed date:01/04/2024 12:39:25 PM Interpretation: Performing Lab:[facility], [address] [place] [address] Notes/Report: Iron 83 45-160 mcg/dL Slight Hemolysis.Interpret result with caution. Total Iron Binding Capacity 356 228-428 mcg/dL Percent Iron Saturation 23 15-50 % Unsaturated Iron Binding 273 Ferritin Reviewed date:01/04/2024 06:24:51 PM Interpretation: Performing Lab:[facility], [address] [place] [address] Notes/Report: Ferritin 53 20-250 ng/mL Free T4 (Free Thyroxine) Reviewed date:01/04/2024 06:24:58 PM Interpretation: Performing Lab:[facility], [address] [place] [address] Notes/Report: Free T4 (Free Thyroxine) 1.17 0.71-1.85 ng/dL TSH reflex Free T4 Reviewed date:01/04/2024 12:39:16 PM Interpretation: Performing Lab:[facility], [address] [place] [address] Notes/Report: TSH reflex Free T4 4.01 0.32-4.0 [...] as directed Orally as directed Active Nasal [place] 0.05 % 4 sprays (2 sprays in [...] W/U Status Risk Notes Problem Epigastric pain (58875089) Epigastric abdominal pain (R10.13) Active confirmed Problem Epigastric pain (30305413) Epigastric pain (R10.13) Active confirmed Problem Perforation and abscess of small intestine co-occurrent and due to diverticulitis (disorder) (690771661) Diverticulitis of small intestine with perforation and abscess without bleeding (K57.00) Active confirmed Problem Diverticulitis of small intestine (52844586) Diverticulitis of small intestine without perforation or abscess without bleeding (K57.12) Active confirmed Problem Nausea (364406120) Nausea (R11.0) Active confir med Problem Anorexia (74801831) Anorexia (R63.0) Active con firmed Problem Early satiety (748422173) Early satiety (R68.81) Active confirmed Problem Anemia (736461148) Anemia (D64.9) Active confir med Problem Gastritis (8820125) Gastritis (K29.70) Active confirmed Problem Chronic fatigue (R53.82) Active confirmed Problem Gastroesophageal reflux disease (246032271) GERD (gastroesophageal reflux disease) (K21.9) Active confirmed Problem Loss of appetite (15978032) Decreased appetite (R63.0) Active confirmed Vital Signs Blood pressure diastolic 11 mm Hg 04/23/2024 Height 67 in 04/23/2024 Blood pressure systolic 111 mm Hg 04/23/2024 Weight 162 lbs 04/23/2024 BMI 25.37 kg/m2 04/23/2024 Encounters Encounter Location Date Provider Diagnosis [facility] [address] [place] [address] 10/24/2023 Kris Infante Diverticulitis of sm all intestine with perforation and abscess without bleeding K57.00 ; Anemia D64.9 and Chronic fatigue R53.82 [facility] [address] [place] [address] 04/23/2024 Kris Infante Diverticulitis of sm all intestine with perforation and abscess without bleeding K57.00 [facility] [address] [place] [address] 08/01/2023 Kris Infante [facility] [address] [place] [address] 08/10/2023 Kris Infante Diverticulitis of sm all intestine with perforation and abscess without bleeding K57.00 and Anemia D64.9 [facility] [address] [place] [address] 11/16/2023 Kris Infante [facility] [address] [place] [address] 11/20/2023 Kris Infante [facility] [address] [place] [address] 12/05/2023 Kris Infante [facility] [address] [place] [address] 12/21/2023 Kris Infante [facility] [address] [place] [phone] 01/04/2024 Kris Infante Assessments Encounter Date Diagnosis (ICD Code) Assessment Notes Treatment Notes Treatment Clinical Notes Section Notes 10/24/2023 Diverticulitis of small intestine with perforation [...] protein powder until the meets with his family services worker next month. I did advise him to [...] protein powder until the meets with his family services worker next month. I did advise him to [...] keep you advised of his progress. 08/10/2023 Diverticulitis of small intestine with perforation [...] protein powder until the meets with his family services worker next month. I did advise him to [...] 02/08/2022 BUN 06/08/2023 CREATININE 02/08/2022 LIVER PROFILE 06/26/2023 LIVER PROFILE 06/08/2023 LIVER PROFILE 08/10/2023 LIVER PROFILE 10/24/2023 LIVER PROFILE 04/20/2023 IRON + IBC (FE) 06/20/2023 IRON + IBC (FE) 08/10/2023 IRON + IBC (FE) 10/24/2023 CRP 06/26/2023 CRP 06/08/2023 CRP 08/10/2023 VITAMIN B12 AND FOLATE 06/20/2023 CBC w DIFF 06/20/2023 CBC w DIFF 04/20/2023 CBC w DIFF 10/24/2023 CBC w DIFF 08/10/2023 CBC w DIFF 06/26/2023 CBC w DIFF 06/08/2023 SED RATE (ESR) 06/26/2023 SED RATE (ESR) 06/08/2023 SED RATE (ESR) 08/10/2023 CT ABD & PELVIS WITH CONTRAST 06/26/2023 [...] 10:00:00 AM, [address], [address], [place], [address], Insurance Providers Payer Name Payer Address Payer Phone Subscriber Number Group Number Insured Name Patient Relationship to Insured Coverage Start Date Coverage End Date MEDICARE OF [place] [address] [place] [address] [id number] ZINAHANNAKRIS PAIGE Self - patient is the insured MED[employer] ATT[employer] CLAIMS [address] [place] [address] [id number] KRIS BAKER - patient is the insured Medical (General) History Medical History History ICD Code Kidney stones COPD Prostate cancer NIDDM Hypertension Denies DE,CVA,Lung disease,renal disease Negative colonoscopy > 10 years [...] MARSHAL-followed by vascular surgery, Dr. Soler, at [facility]. He felt this presented more of a chronic issue as opposed to an acute problem. Inflammation and small absce sses in the region of the small bowel seen on the CT scan during the workup for the abdominal pain in April of 2023. This was treated with IV and subsequent oral antibiotics at [facility]. There was the finding of multiple small [...]
--- OUTSIDE RECORDS SUMMARY | 2024-07-04 09:17 | XMS_ITS ---
Author [facility] Address [address] [place] [address] Care Team Providers Care Digital Media Director Name Role Phone Cristhian Garcia Primary Care Provider Unav ailable Black, Estela Unavailable [phone] Allergies No Known Allergies REASON FOR VISIT [...] Answer Notes Tobacco use: Nonsmoker Vital Signs Blood pressure systolic 120 mm Hg 03/07/19 Blood pressure diastolic 70 mm Hg 025 Height 5 ft 6 in in 03/07/2024 Weight 140 lbs 03/07/2024 BMI 22.59 kg/m2 03/07/2024 Procedures Procedure Date Ordered Date Performed Result Body Sit e 50153-DJMM SKIN LESIONS, 2 TO 4 03/07/2024 N/A 16598-ULBZ NAIL(S) 03/07/2024 N/A Encounters Encounter Location Date Provider Diagnosis [facility] [place] [address] [place] [address] 03/07/2024 Estela Bell Type 2 diabetes mellitus [...] days Pending Test Test Name Order Date 26884-TQOO SKIN LESIONS, 2 TO 4 03/07/19 62718-LIUC NAIL(S) 03/07/2024 Next Appt Details Follow Up: prn, Reason: Provider Name:Estela Bell , 09/05/2024 09:00:00 AM, [address] [place] [address], [address], Procedure Notes * Category Sub-Category Detail Notes [...] instrumentation by the physician of record - 62112 Nail Reduction Nail Reduction (-19) Trimming o [...] healthy nail plate or bed tissue - 41240 Progress Notes * Larry COLEMAN LDOB:[birth year] (83 yo M)Acc No.[id number]:03/07/2024 Progress Note Patient:?Larry COLEMAN Provider:?Estela Bell DPM :1940???Age:83 Y???Sex:Male Antolni e:03/07/2024 Address:[address] [place], [place] [address] Pcp:TUSHAR Jiang Subjective: * Chief Complaints: * [...] instrumentation by the physician of record - 57908.?Nail Reduction:?Nail Reduction?(-19) Trimming of all non-dystrophic nails [...] healthy nail plate or bed tissue - 18115.? * Procedure Codes:?55419 TRIM SKIN LESIONS, 2 TO 4, Modifiers: XS 46003 TRIM NAIL(S), Modifiers: XS * Preventive Medicine:? [...] Bell DPM Date:?2024 Generated for Hector martinez/Eliud/Annemariesmitting on:?07/04/2024 09:16 AM EDT History and Physical [...]
--- OUTSIDE RECORDS SUMMARY | 2024-07-04 09:17 | XMS_ITS | Patient Health Record ---
Author Organization [facility] Address [address] [place] [address] Care Team Providers Care Convention Services Director Name Role Phone Cristhian Garcia Primary Care Provider Unav ailable Black, Estela Unavailable [phone] Allergies No Known Allergies Reason For Referral [...] Problem Acquired hammer toe of right foot (9268673153901286 ) Other hammer toe(s) (acquired), right foot (M20.41) Active confirmed Problem Acquired hammer toe of left foot (7400260014309758 ) Other hammer toe(s) (acquired), left foot (M20.42) Active confirmed Problem Polyneuropathy due to type 2 diabetes mellitus (349750469) Type 2 diabetes mellitus with diabetic polyneuropathy (E11.42) Active confirmed Vital Signs Blood pressure diastolic 70 mm Hg 03/07/2024 Height 5 ft 6 in in 03/07/2024 Blood pressure systolic 120 mm Hg 03/07/2024 Weight 140 lbs 03/07/2024 BMI 22.59 kg/m2 03/07/2024 Procedures Procedure Date Ordered Date Performed Result Body Sit e 42772-PTPD SKIN LESIONS, 2 TO 4 08/31/2023 N/A 80441-QBAI NAIL(S) 08/31/2023 N/A 31943-GNYC SKIN LESIONS, 2 TO 4 03/07/2024 N/A 99562-JPVT NAIL(S) 03/07/2024 N/A Encounters Encounter Location Date Provider Diagnosis [facility] [address] [address] 08/31/2023 Estela Black Type 2 diabetes mellitus with diabetic polyneuropathy E11.42 [facility] [address] [address] 03/07/2024 Estela Black Type 2 diabetes mellitus [...] Treatment Pending Test Test Name Order Date 66045-KSIQ SKIN LESIONS, OVER 4 12/07/19 11 83761-TWBV SKIN LESIONS, OVER 4 06/26/19 13 25340-QIOC SKIN LESIONS, OVER 4 01/01/20 13 82097-VZEH SKIN LESIONS, OVER 4 07/26/19 14 44034-UTAN SKIN LESIONS, OVER 4 01/16/20 14 34466-FELE SKIN LESIONS, OVER 4 07/17/19 15 00539-AGWQ SKIN LESIONS, 2 TO 4 01/15/20 15 06748-SIRX SKIN LESIONS, 2 TO 4 12/22/19 12 31107-ZMUL SKIN LESIONS, 2 TO 4 06/20/19 12 93646-ZIAY SKIN LESIONS, 2 TO 4 07/20/19 16 72246-JUJS SKIN LESIONS, 2 TO 4 01/18/20 16 27651-MIIM SKIN LESIONS, 2 TO 4 07/19/19 17 13193-PDQC SKIN LESIONS, 2 TO 4 01/24/20 17 05767-ZPWW SKIN LESIONS, 2 TO 4 01/16/20 18 11708-ILOB SKIN LESIONS, 2 TO 4 08/21/19 19 20571-ATAN SKIN LESIONS, 2 TO 4 02/25/19 20 18785-JKGN SKIN LESIONS, 2 TO 4 08/08/19 20 83640-RICZ SKIN LESIONS, 2 TO 4 02/03/20 20 70184-TFDM SKIN LESIONS, 2 TO 4 07/21/19 21 28530-GMQU SKIN LESIONS, 2 TO 4 02/22/19 22 49435-SWBU SKIN LESIONS, 2 TO 4 08/31/19 22 11698-AEKE SKIN LESIONS, 2 TO 4 02/24/19 23 46119-DXSR SKIN LESIONS, 2 TO 4 08/26/19 23 02384-TFCK SKIN LESIONS, 2 TO 4 03/02/19 24 35212-MOSU SKIN LESIONS, 2 TO 4 08/31/19 24 37493-NFJH SKIN LESIONS, 2 TO 4 03/07/19 25 14873-AEXF NAIL(S) 03/07/2024 27321-KEUR NAIL(S) 08/31/2023 83908-KGVX NAIL(S) 03/02/2023 83669-ROHT NAIL(S) 08/25/2022 06618-RCKM NAIL(S) 02/24/2022 76771-NMAJ NAIL(S) 08/30/2021 24263-YXTX NAIL(S) 02/22/2021 95300-LSGN NAIL(S) 07/20/2020 33459-IKXE NAIL(S) 02/03/2020 68569-FHEZ NAIL(S) 08/08/2019 50599-FDUE NAIL(S) 02/25/2019 48595-EQZK NAIL(S) 08/20/2018 68769-HCAI NAIL(S) 01/15/2018 63249-ETAZ NAIL(S) 07/18/2016 95775-WUMJ NAIL(S) 01/18/2016 07513-LRPM NAIL(S) 07/20/2015 51998-JFMG NAIL(S) 12/22/2011 20862-EPKS NAIL(S) 12/06/2010 25239-SXZV NAIL(S) 06/20/2011 10612-KNPA NAIL(S) 06/25/2012 45259-ITUM NAIL(S) 12/31/2012 11260-KFAC NAIL(S) 01/14/2015 86465-QESF NAIL(S) 07/16/2014 87682-MHLK NAIL(S) 01/15/2014 01170-UAKB NAIL(S) 07/25/2013 A3088-FUJZXYAK DYSTROPHIC NAILS ANY # Next Appt Details Provider Name:Estela Bell , 09/05/2024 09:00:00 AM, [address] [place], [address], Insurance Providers Payer Name Payer Address Payer Phone Subscriber Number Group Number Insured Name Patient Relationship to Insured Coverage Start Date Coverage End Date Medicare [facility] [address] [place] [address] [id number] Larry Pichardo Self - patient is the insured [employer] Blue Shield [address] [place] [address] [id number] Larry Pichardo Self - patient is the insured Medical (General) History Medical History History ICD Code mumps measles hypertension diabetic chicken pox cancer Cholesterol Surgical History Surgery Date(Month/Year) opened artery 08/08/2018 cataract surgery
--- OUTSIDE RECORDS SUMMARY | 2024-07-04 09:17 | XMS_ITS ---
Author Organization [facility] Address [address] [place] [address] Care Team Providers Care Compliance Mgr Name Role Phone JAVIDAnabela TOMMY Primary Care Provider Kris Tate Unavailable [phone] Allergies No Known Allergies REASON FOR VISIT [...] needed Oral Once a day Not-Taking Nasal [place] 0.05 % 4 sprays (2 sprays in [...] 04/23/2024 Encounters Encounter Location Date Provider Diagnosis [facility] [address] [place] [address] 04/23/2024 Kris Infante Diverticulitis of sm all [...] Name:Kris Infante , 04/24/2025 10:00:00 AM, [address] [facility], [address], [place], [address], Progress Notes * KRIS COLEMAN LDOB:[birth year] (84 yo M)Acc No.[id number]:04/23/2024 Progress Notes Patient:KRIS GIRON Provider:?Kris Infante MD :1940???Age:84 Y???Sex:Male Antolin e:04/23/2024 Address:[address] [place] [address] Pcp:TOMMY CHAPIN Subjective: * Chief Complaints: * [...] 1 CAPSULE BY MOUTH EVERY MORNING Not-Taking/PRNNasal [place] 0.05 % Solution 4 sprays (2 sprays in each nostril) Nasally Twice a day Famotidine 40 MG Tablet 1 tablet at bedtime as needed Oral Once a day Medication List reviewed and reconciled with the patientNot-Taking/PRN Nasal [place] 0.05 % Solution 4 sprays (2 sprays [...] * Treatment: * Procedure Codes:?1036F TOBAC CO NON-MDICE2659 BP SCR NOT PRFRM REC REASON NOS * Preventive Medicine:? ??Screenings:?Fall Risk Screening?Fall Risk Assessment:?No falls in the past year,?Screening:?No falls in the past year,?Assessment:?Not performed, no reason specified,?Plan of Care:?Not documented, no reason specified.? * Follow Up:?1 Year * * Sign off status: Completed true * Provider:?Kris Infante MD Date:? 025 Generated for Henriettai juan/Eliud/eTransmitting on:?07/04/2024 09:16 AM EDT History and Physical [...]
--- OUTSIDE RECORDS SUMMARY | 2024-07-04 09:17 | XMS_ITS ---
Author Organization [facility] [place] Address [address] [place] [address] Care Team Providers Care Machine Stripper Name Role Phone Cristhian Garcia Primary Care Provider Unav ailable Black, Estela Unavailable [phone] Allergies No Known Allergies REASON FOR VISIT [...] Ordered Date Performed Result Body Sit e 80002-LIDM SKIN LESIONS, 2 TO 4 08/31/2023 N/A 10313-RZUZ NAIL(S) 08/31/2023 N/A Encounters Encounter Location Date Provider Diagnosis [facility] [address] [place] [address] 08/31/2023 Estela Ray Type 2 diabetes mellitus with diabetic polyneuropathy E11.42 Assessments Encounter Date Diagnosis (ICD Code) Assessment Notes Treatment Notes Treatment Clinical Notes Section Notes 08/31/2023 Type 2 diabetes mellitus with diabetic polyneuropathy (ICD-10 - E11.42) Plan Of Treatment Pending Test Test Name Order Date 03853-QDTN SKIN LESIONS, 2 TO 4 08/31/19 01170-DGBA NAIL(S) 08/31/2023 Next Appt Details Follow Up: prn, Reason: Provider Name:Estela Moran Ray , 09/05/2024 09:00:00 AM, [address] [place] [address], [phone], Procedure Notes * Category Sub-Category Detail Notes Keratoma Treatment Parring or Cutting o f Benign Hyperkeratotic Lesion(s) 04198 (2-4 Lesions) - The Benign hyperkeratotic lesions, as described above were pared, and/or cut utilizing a sterile #15 blade, tissue nippers, and/or dremel Nail Reduction Nail Reduction Trimming of non- dystrophic nails performed to reduce/remove overall nail length and girth, by manual and electrical means with use of a nail nipper and/or dremel, to more viable healthy nail plate or bed tissue 6-10 (03630) Progress Notes * Larry COLEMAN LDOB:[birth year] (83 yo M)Acc No.[id number]:08/31/2023 Progress Note Patient:?Larry COLEMAN Provider:?Estela Bell DPM :1940???Age:83 Y???Sex:Male Antolin e:08/31/2023 [place] Pcp:TUSHAR Jiang Subjective: * Chief Complaints: [...] Procedures:?Keratoma Treatment:?Parring or Cutting of Benign Hyperkeratotic Lesion(s)?48215 (2-4 Lesions) - The Benign hyperkeratotic lesions, as described above were pared, and/or cut utilizing a sterile #15 blade, tissue nippers, and/or dremel.?Nail Reduction:?Nail Reduction?Trimming of non-dystrophic nails performed to reduce/remove overall nail length and girth, by manual and electrical means with use of a nail nipper and/or dremel, to more viable healthy nail plate or bed tissue 6-10 (91628).? * Procedure Codes:?37006 TRIM SKIN LESIONS, 2 TO 4, Modifiers: XS 48686 TRIM NAIL(S), Modifiers: XS * Follow Up:?prn * Images: * Sign off status: Completed true * Provider:?Estela Bell DPM Date:?2023 Generated for Hector martinez/Eliud/Mariam on:?07/04/2024 09:17 AM EDT History and Physical Notes * [...]
--- OUTSIDE RECORDS SUMMARY | 2024-07-04 09:17 | XMS_ITS ---
Author Organization [facility] Address [address] [place] [address] Care Team Providers Care Harness Worker Name Role Phone TOMMY CHAPIN Primary Care Provider Kris Tate [phone] Encounters Encounter Location Date Provider Diagnosis [facility] [address] [place] [address] 01/04/2024 Kris Infante Plan Of Treatment Next Appt Details Provider Name:Kris Infante , 04/24/2025 10:00:00 AM, [address], [address], [place], [address], Progress Notes * KRIS COLEMAN LDOB:[birth year] (83 yo M)Acc No.[id number]:01/04/2024 Patient:?KRIS COLEMAN :1940???Age:83 Y???Sex:Male Address:[address] [place] [address], [address] * true * Date:? Generated for Printi ng/Faxing/eTransmitting on:?07/04/2024 09:16 AM EDT
--- OUTSIDE RECORDS SUMMARY | 2024-07-04 09:18 | XMS_ITS | Clinical Summary ---
Author Organization [facility] Address [address] [address] Phone Care Team Providers Care Painter Name Role Phone Cristhian Durán NP Primary Care Provider [phone] Allergies No known active allergies Medications atorvastatin [...] in the evening. 180 tablet 3 06/09/2023 06/09/19 25 Active Problems Problem Noted Date Diagnosed Date [...] EDT Office Visit [facility] [address] [address] Hawk Aiken MD Stage 3b chronic kidney disease (HCC) (Primary Dx); Hypomagnesemia; Hypertension; Diabetes mellitus, not otherwise specified (HCC); Vitamin D deficiency, not otherwise specified; Personal history of prostate cancer; Peripheral arterial occlusive disease (HCC); Abdominal aortic aneurysm without rupture, not otherwise specified (HCC) 05/16/2024 Orders Only [facility] [address] [address] Hawk Aiken MD Stage 3b chronic kidney [...] [facility] [address] [address] Hawk Aiken MD [address] [address] Health Maintenance Due Date Last [...] AM EDT us Hawk Aiken MD LAB [id number] SOLICITED RESULTS Final Result [place] See order comments [place] [address] * Vitamin D 25 Hydroxy (05/07/2024 10:41 [...] with another method such as LC-MS/MS. Blood specimen (specimen) Venous blood / Unknown 05/07/2024 10:41 AM EDT 05/07/2024 10:41 AM EDT us Hawk Aiken MD LAB BLOOD ORDERABLES Final Re sult Performing Organization Address [facility] Phone Number [place] See order comments [place] [address] * Uric Acid (05/07/2024 10:41 AM EDT) Uric Acid 5.0 3.4 - 7.0 mg/dL See order comments Blood specimen (specimen) Venous blood / Unknown 05/07/2024 10:41 AM EDT 05/07/2024 10:41 AM EDT us Hawk Aiken MD LAB BLOOD ORDERABLES Final Re sult Performing Organization Address [facility] Phone Number [place] See order comments [place] [address] * Phosphorus (05/07/2024 10:41 AM EDT) Phosphorus, Serum 2.7 2.7 - 4.5 mg/dL See order comments Blood specimen (specimen) Venous blood / Unknown 05/07/2024 10:41 AM EDT 05/07/2024 10:41 AM EDT us Hawk Aiken MD LAB BLOOD ORDERABLES Final Re sult Performing Organization Address [facility] Phone Number [place] See order comments [place] [address] * (ABNORMAL) Comprehensive Metabolic Panel (05/07/2024 10:41 [...] - 1.4 mg/dL See order comments eGFR (Calc) 50 See orde r comments Comment: Chronic Kidney Disease: ??Estimated GFR [...] - 117 U/L See order comments Blood specimen (specimen) Venous blood / Unknown 05/07/2024 10:41 AM EDT 05/07/2024 10:41 AM EDT us Hawk Aiken MD LAB BLOOD ORDERABLES Final Re sult [place] See order comments [place] [address] * (ABNORMAL) CBC and Differential (05/07/2024 10:05 [...] - 0.012 X10*3/uL See order comments Blood specimen (specimen) Venous blood / Unknown 05/07/2024 10:05 AM EDT 05/07/2024 10:05 AM EDT us Hawk Aiken MD LAB BLOOD ORDERABLES Final Re sult [place] See order comments [place] [address] * (ABNORMAL) Protein, Total, Random Urine w/Creatinine (Protein/Creat Ratio) (05/07/2024 10:02 AM EDT) Creatinine, Urine 121.31 mg/dL See order comments Protein Urine Random 17(H) <12 mg/dL See order comments Protein/Creati nine Ratio, Urine 0.14 <0.2 See order comments Comment: The spot urine protein:creatinine ratio may increase to 0.3 during normal . Urine specimen (specimen) Urine specimen obtained by clean catch procedure / Unknown 05/07/2024 10:02 AM EDT 05/07/2024 10:02 AM EDT us Hawk Aiken MD LAB URINE ORDERABLES Final Re sult [place] See order comments [place] [address] from Last 3 Months Insurance Medicare [facility] Medicare [facility] Care Teams Painter Relationship Specialty Start Date End Date Cristhian Durán NP [address] [place] [address] PCP - General Nurse Practitioner 02/16/22
--- OUTSIDE RECORDS SUMMARY | 2024-07-04 09:18 | XMS_ITS ---
Author Organization [facility] Address [address] [place] [address] Care Team Providers Care Timber Supervisor Name Role Phone TOMMY CHAPIN Primary Care Provider Kris Tate [phone] Encounters Encounter Location Date Provider Diagnosis [facility] [address] [place] [address] 12/21/2023 Kris Infante Plan Of Treatment Next Appt Details Provider Name:Kris Infante , 04/24/2025 10:00:00 AM, [address], [address], [place], [address], Progress Notes * KRIS COLEMAN LDOB:[birth year] (83 yo M)Acc No.[id number]:12/21/2023 Patient:?KRIS COLEMAN :1940???Age:83 Y???Sex:Male Address:[address] [place] [address], [address] * true * Date:? Generated for Printi juan/Eliud/eTransmitting on:?07/04/2024 09:17 AM EDT
== END 2024-07-04 09:48 | disposition home or self-care (01) ==
LOC: HO.ENCR 09:04
PROVIDERS: PCP Nurse Practitioner Family; Visit Provider Internal Medicine Endocrinology, Diabetes & Metabolism
DX: E27.8 Other specified disorders of adrenal gland (principal)
CPT/HCPCS: 99204

== ENCOUNTER → 2024-07-04 09:04 | Outpatient (BNVA) | payer MEDICARE, SELFPAY | PROVIDERS: PCP Nurse Practitioner Family; Visit Provider Internal Medicine Endocrinology, Diabetes & Metabolism | DX: E27.8 Other specified disorders of adrenal gland (principal) | CPT/HCPCS: 99202 ==

== ENCOUNTER 2024-07-11 08:22 | Outpatient (AMB) | payer MEDICARE, SELFPAY ==
--- OUTSIDE RECORDS SUMMARY | 2024-07-11 08:32 | XMS_ITS | Clinical Summary ---
Author Organization [facility] Address [address] [place] [address] Care Team Providers Care Coding Clerks Supervisor Name Role Phone Unavailable Primary Care Provider [...]
--- NOTE | 2024-07-11 08:43 | AM.OFFVISNUR ---
Intake Visit Reasons: B-12 shot Intake Note: Pt arrived for monthly B-12 injection Allergies No Known Allergies [No Known Allergies*] Allergy (Verified 07/04/24 09:07) Office Meds cyanocobalamin (vitamin B-12) 1,000 mcg/mL injection solution Performing Provider: KLAUDIA Morales Performing Location: [facility] Adult [facility] Administered by: Cici Van RN on 07/11/24 08:43 Dose Route Admin Location Dispensed Lot Number Expiration Date [facility] Ginning Operator 1,000 mcg IM left deltoid 1 mL [id number] 11/13/25 1258-2186-07 [facility] Comments: Pt supplied Assessment & Plan Assessment & Plan Orders: Orders AMB Vitamin B12 Injection Patient Supplied Today E53.8 - Deficiency of other specified B group vitamins Medications: New cyanocobalamin (vitamin B-12) 1,000 mcg IM ONCE 1 mL 0RF E53.8 - Deficiency of other specified B group vitamins Coding
== END 2024-07-11 08:40 | disposition home or self-care (01) ==
LOC: HO.HMCC 08:22
PROVIDERS: PCP Nurse Practitioner Family; Visit Provider Nurse Practitioner Family
DX: E53.8 Deficiency of other specified B group vitamins (principal)

== ENCOUNTER → 2024-07-11 08:22 | Outpatient (BNVA) | payer MEDICARE, SELFPAY | PROVIDERS: PCP Nurse Practitioner Family; Visit Provider Nurse Practitioner Family | DX: E53.8 Deficiency of other specified B group vitamins (principal) | CPT/HCPCS: 96372; J3420 ==

== ENCOUNTER 2024-07-16 11:28 | Outpatient (AMB) | payer MEDICARE, SELFPAY ==
[2024-07-16 11:29] VITALS: BP 112/70; PULSE 72; O2SAT 97; BMI 26.6
--- NOTE | 2024-07-16 11:29 | MHC.PC.OV ---
Vital Signs 07/16/24 11:29 Height 5 ft 5 in Weight 160 lb BMI 26.6 BP 112/70 Blood Pressure Location Rt brachial Position Sitting Pulse 72 Pulse Source Pulse Oximeter Pulse Oximetry (%) 97 Oxygen Delivery Method Room Air Intake Visit Reasons: Diabetes fluctuations Rn Bsn Required: No Accompanied by: Self / Same As Patient Allergies No Known Allergies [No Known Allergies*] Allergy (Verified 07/16/24 11:30) Tobacco use date assessed: 04/09/24 Fall risk assessment: No Falls in past year Last assessed Fall Risk: 07/16/24 Dental Screening Dental Screen Date: 03/06/24 HPI Diabetes fluctuations HPI Details Chief Complaint Follow-up visit for Vitamin B12 deficiency and anemia. History of Present Illness The patient is an 84-year-old male presenting for follow-up related to Vitamin B12 deficiency and anemia. He has been receiving Vitamin B12 injections as part of his treatment. Recent evaluations have pointed towards slight anemia as indicated by his lab results. Regular laboratory assessments have been requested to monitor his hematologic status, with particular emphasis on checking his Vitamin B12 levels to evaluate the effectiveness of the current treatment. The objective of this visit is to confirm adequate B12 control. Social History Health Maintenance - Regular podiatry consultations - Monitoring for Vitamin B12 deficiency through injections Review of Systems - Cardiovascular: Denies polydipsia - Neurological: Denies neuropathy - General: Denies malaria Physical Exam General: Cooperative, healthy appearing, comfortable, no acute distress and well developed Orientation: Patient oriented x3 Limitations: No limitations Head: Normal to inspection Ears: Hearing grossly normal bilaterally Nose: Normal external nose present Face and sinus: Normal facial exam Eyes: Appearance normal, both eyes and all related structures Neck: Normal visual inspection and Yes full ROM Respiratory: Normal respiratory effort and able to speak in complete sentences. Clear/dim to auscultation bilaterally Cardiovascular: Regular rate and rhythm. s1 and S2 GI: Normal to inspection. Soft to palpation and nontender Skin: No rashes or lesions noted Neuro: Patient oriented x3 Extremities: Normal to inspection Results - Labs: Hemoglobin A1c today is 5.2 Plan The patient will continue with Vitamin b12 injections to manage the deficiency, with labs scheduled to monitor levels and evaluate treatment success. Slight anemia will be monitored through repeated lab tests. Continued podiatry care is in place, and the absence of neuropathy aligns with the current management. Attention will be directed at maintaining control over these issues. Discussion Notes During the visit, we discussed continuing the B12 injections to manage his deficiency and the importance of regular lab work to monitor B12 levels. We talked about maintaining current care regimens, including ichthyology teacher visits which were reported as regular and beneficial. I emphasized the need to monitor anemia and the effectiveness of treatment through further lab assessments. We agreed on the necessity of these ongoing diagnostics as part of his health management strategy. Patient Instructions - Continue Vitamin B12 injections as prescribed. - Complete requested laboratory tests in the near future. - Keep regular appointments with your ichthyology teacher. [facility] Medical History Superior mesenteric artery syndrome Elevated serum creatinine Encounter for annual wellness visit (AWV) in Medicare patient Screening PSA (prostate specific antigen) Plantar callus CKD (chronic kidney disease) stage 3, GFR 30-59 ml/min Acquired hammertoes of both feet Type 2 diabetes mellitus without complication, without long-term current use of insulin Eczema Hearing loss Prostate CA HTN (hypertension) PVD (peripheral vascular disease) Carotid artery stenosis COPD (chronic obstructive pulmonary disease) Dyslipidemia Surgical History History of left-sided carotid endarterectomy Status post aortography with runoff History of atherectomy History of angioplasty H/O colonoscopy with polypectomy History of endarterectomy History of cataract surgery History of cataract surgery Family History Father Medical history non-contributory Mother Medical history non-contributory Son No problems noted. Daughter No problems noted. Daughter No problems noted. Social History Housing: House Alcohol intake: current Patient Tobacco Use Status: Former Tobacco user Years Smoked: quit 25 years ago e-Cigarette/Vaping Use: Never Used Second Hand Smoke Exposure: No service: Yes Current occupational status: retired Cognitive needs: No Hearing needs: No Vision needs: No Questionnaire Thrive Questionnaire Date Thrive assessed: 03/06/24 ELISABET-7 AMB Questionnaire ELISABET-7 Date ELISABET - 7 assessed: 04/09/24 Source: Developed by Drs. Larry Ohara, Luci Anglin, Charlie Lees and colleagues, with an educational deanna from [employer]. Physical exam (Primary Care) Vital Signs: Last Vital Signs Pulse 72 07/16/24 11:29 BP 112/70 07/16/24 11:29 Pulse Ox 97 07/16/24 11:29 Oxygen Delivery Method Room Air 07/16/24 11:29 BMI result Body Mass Index 26.6 Tobacco/Smoking Status: Tobacco use Status Tobacco use date assessed 04/09/24 07/16/24 11:31 Patient Tobacco Use Status Former Tobacco user 07/16/24 11:31 e-Cigarette/Vaping Use Never Used 07/16/24 11:31 Thrive Assessment: Date of Thrive Assessment Date Thrive assessed 03/06/24 07/16/24 11:31 Coding Level of Care Code Est Pt Level 3 (31441) Diagnoses Diabetes E11.9 Assessment & Plan Assessment & Plan (1) Diabetes: Code(s): E11.9 - Type 2 diabetes mellitus without complications Category: Medical Plan .
--- OUTSIDE RECORDS SUMMARY | 2024-07-16 13:06 | XMS_ITS | Clinical Summary ---
Author Organization [facility] Address [address] [place] [address] Care Team Providers Care Facilities Assistant Name Role Phone Unavailable Primary Care Provider [...]
== END 2024-07-16 12:26 | disposition home or self-care (01) ==
PROVIDERS: PCP Nurse Practitioner Family; Visit Provider Nurse Practitioner Family
DX: E11.9 Type 2 diabetes mellitus without complications (principal); Z13.9 Encounter for screening, unspecified

== ENCOUNTER → 2024-07-16 11:28 | Outpatient (BNVA) | payer MEDICARE, SELFPAY | PROVIDERS: PCP Nurse Practitioner Family; Visit Provider Nurse Practitioner Family | DX: E11.9 Type 2 diabetes mellitus without complications (principal) | CPT/HCPCS: 83036; 99212 ==

== ENCOUNTER 2024-07-17 06:07 | Outpatient (REF) | payer MEDICARE, SELFPAY ==
--- OUTSIDE RECORDS SUMMARY | 2024-07-17 06:09 | XMS_ITS | Clinical Summary ---
Author Organization [facility] Address [address] [place] [address] Care Team Providers Care Kaiawhina Name Role Phone Unavailable Primary Care Provider [...]
[2024-07-17 08:25] LABS: MANUAL DIFF FLAG NO
[2024-07-17 08:55] LABS: Appearance Urine Clear; Color Urine Dark Yellow; Glucose Urine UA Negative (Negative); Leukocyte Esterase Urine Negative (Negative); Nitrite Urine Negative (Negative); PH 5.5 (5.0-9.0); Urine Blood Negative (Negative); Urine Ketones Trace mg/dL (Negative); Urine Protein Negative (Neg-Trace)
[2024-07-17 08:59] LABS: Basophils Percent Auto 0.7 % (0-2); Eosinophils Absolute Auto 0.1 X10*3/uL (0.0-0.4); Eosinophils Percent Auto 2.7 % (0-4); Hemoglobin 11.8 g/dl (14.0-18.0); Imm Gran Abs Auto 0.01 X10*3/uL (0.00-0.03); Imm Gran Pct Auto 0.2 % (0.0-0.4); Lymphocytes Percent Auto 24.5 % (20-40); Mean Corpuscular HGB Conc 31.9 g/dl (31.0-36.0); Mean Corpuscular Volume 94.1 fL (80.0-98.0); Mean Platelet Volume 10.7 fL (9.4-12.4); Monocytes Absolute Auto 0.3 X10*3/uL (0.1-1.2); Monocytes Percent Auto 8.3 % (2-11); Neutrophils Absolute Auto 2.6 x10*3/uL (2.0-8.3); Neutrophils Percent Auto 63.6 % (45-73); Platelet Count 215 X10*3/uL (160-400); Red Blood Count 3.93 X10*6/uL (4.60-5.80); White Blood Count 4.1 X10*3/uL (4.8-10.8)
[2024-07-17 10:45] LABS: Alanine Aminotransferase 19 U/L (0-40); Anion Gap 14 (12-20); Aspartate Amino Transferase 40 U/L (5-37); Bilirubin Total 0.6 mg/dL (0.0-1.0); Blood Urea Nitrogen 29 mg/dL (9-16); Calcium 9.7 mg/dL (8.4-10.2); Carbon Dioxide 24 mmol/L (22-29); Chloride 111 mmol/L (96-108); Cholesterol 106 mg/dL (<200); Estimated Glomerular Filt Rate 52; Glucose Fasting 185 mg/dL (60-99); HDL Cholesterol 21 mg/dL (>40); LDL Cholesterol Calculated 57 mg/dL (<100); Potassium 4.6 mmol/L (3.3-5.1); Sodium 144 mmol/L (135-145); Total Protein 6.3 g/dL (6.5-8.0); Triglycerides 142 mg/dL (<150)
[2024-07-17 11:14] LABS: TSH reflex Free T4 3.25 uIU/mL (0.32-4.0)
[2024-07-17 13:02] LABS: Alkaline Phosphatase 37 U/L (39-117)
[2024-07-18 04:13] LABS: DHEA Sulfate 59 mcg/dL (3-225)
[2024-07-22 14:24] LABS: Metanephrine, Free 81 pg/mL (<=57); Normetanephrines, Free 358 pg/mL (<=148); Total Metanephrine, Free 439 pg/mL (<=205)
[2024-07-24 17:53] LABS: Renin 1.79 ng/mL/h (0.25-5.82)
[2024-07-26 13:54] LABS: Dexamethasone <20 ng/dL
== END 2024-07-17 06:08 | disposition home or self-care (01) ==
LOC: HO.HMGCLDS 06:07
PROVIDERS: PCP Nurse Practitioner Family; Referring Provider Internal Medicine Endocrinology, Diabetes & Metabolism; Visit Provider Nurse Practitioner Family
DX: I10 Essential (primary) hypertension (principal); E11.9 Type 2 diabetes mellitus without complications; E53.8 Deficiency of other specified B group vitamins; E27.8 Other specified disorders of adrenal gland
CPT/HCPCS: 36415; 80053; 80061; 80299; 81003; 82088; 82533; 82627; 83835; 84244; 84443; 85025

== ENCOUNTER 2024-07-19 07:46 | Outpatient (REF) | payer MEDICARE, SELFPAY ==
[2024-07-26 14:59] LABS: Dexamethasone 501 ng/dL
== END 2024-07-19 07:47 | disposition home or self-care (01) ==
LOC: HO.LAB 07:46
PROVIDERS: PCP Nurse Practitioner Family; Visit Provider Internal Medicine Endocrinology, Diabetes & Metabolism
DX: Z13.89 Encounter for screening for other disorder (principal)
CPT/HCPCS: 36415; 80299

== ENCOUNTER 2024-07-26 06:00 | Outpatient (REF) | payer MEDICARE, SELFPAY ==
--- OUTSIDE RECORDS SUMMARY | 2024-07-26 10:04 | XMS_ITS | Clinical Summary ---
Author Organization [facility] Address [address] [place] [address] Care Team Providers Care Supervisor [employer] Name Role Phone Unavailable Primary Care Provider [...]
[2024-07-26 15:59] LABS: Total Volume 24 Hour Urine 875 mL
[2024-07-26 16:13] LABS: Creatinine, 24Hr Urine 0.4 G/Day (1.0-2.0); Creatinine, mg/dL 43.54
[2024-08-03 16:18] LABS: Metanephrine, Free 24U 80 mcg/24 h (90-315); Normetanephrine, Free 24U 187 mcg/24 h (122-676); Total Metanephrine, Free 24U 267 mcg/24 h (224-832); Total Volume 24U 875 mL
== END 2024-07-26 06:01 | disposition home or self-care (01) ==
LOC: HO.HMGCLNP 06:00
PROVIDERS: PCP Nurse Practitioner Family; Visit Provider Internal Medicine Endocrinology, Diabetes & Metabolism
DX: E27.8 Other specified disorders of adrenal gland (principal)
CPT/HCPCS: 82570; 83835

== ENCOUNTER 2024-08-08 08:25 | Outpatient (AMB) | payer MEDICARE, SELFPAY ==
--- NOTE | 2024-08-08 08:32 | AM.OFFVISNUR ---
Intake Visit Reasons: B-12 shot Intake Note: Pt arrived for monthly B-12 Allergies No Known Allergies (No Known Allergies*) Allergy (Verified 07/16/24 11:30) Office Meds cyanocobalamin (vitamin B-12) 1,000 mcg/mL injection solution Performing Provider: JOSH Morales Performing Location: [facility] Administered by: Cici Van RN on 08/08/24 08:32 Dose Route Admin Location Dispensed Lot Number Expiration Date [facility] Director Selection And Administration 1,000 mcg IM left deltoid 1 mL [id number] 11/13/25 9921-9483-85 [facility] Total Dispensed Waste 1 mL 0 % Comments: Pt supplied Assessment & Plan Assessment & Plan Orders: Orders AMB Vitamin B12 Injection Patient Supplied Today E53.8 - Deficiency of other specified B group vitamins Coding
--- OUTSIDE RECORDS SUMMARY | 2024-08-08 08:42 | XMS_ITS | Clinical Summary ---
Author Organization [facility] Address [address] [place] [address] Care Team Providers Care Babbitter Name Role Phone Unavailable Primary Care Provider [...]
== END 2024-08-08 08:33 | disposition home or self-care (01) ==
LOC: HO.HMCC 08:25
PROVIDERS: PCP Nurse Practitioner Family; Visit Provider Nurse Practitioner Family
DX: E53.8 Deficiency of other specified B group vitamins (principal)

== ENCOUNTER → 2024-08-08 08:25 | Outpatient (BNVA) | payer MEDICARE, SELFPAY | PROVIDERS: PCP Nurse Practitioner Family; Visit Provider Nurse Practitioner Family | DX: E53.8 Deficiency of other specified B group vitamins (principal) | CPT/HCPCS: 96372; J3420 ==

== ENCOUNTER 2024-09-05 08:24 | Outpatient (AMB) | payer MEDICARE, SELFPAY ==
--- NOTE | 2024-09-05 08:40 | AM.OFFVISNUR ---
Intake Visit Reasons: B-12 shot Intake Note: Pt arrived for monthly B-12 injection Allergies No Known Allergies (No Known Allergies*) Allergy (Verified 07/16/24 11:30) Office Meds cyanocobalamin (vitamin B-12) 1,000 mcg/mL injection solution Performing Provider: KLAUDIA Morales Performing Location[place] [facility] Administered by: Cici Van RN on 09/05/24 08:41 Dose Route Admin Location Dispensed Lot Number Expiration Date [facility] Filer Helper 1,000 mcg IM left deltoid 1 mL [id number] 09/13/25 79704-819-55 [employer] Total Dispensed Waste 1 mL 0 % Comments: Pt supplied Assessment & Plan Assessment & Plan Orders: Orders AMB Vitamin B12 Injection Patient Supplied Today E53.8 - Deficiency of other specified B group vitamins Coding
--- OUTSIDE RECORDS SUMMARY | 2024-09-05 08:42 | XMS_ITS | Clinical Summary ---
Author Organization [facility] Address [address] [address] Phone Care Team Providers Care Program Services Planner Name Role Phone Cristhian Durán NP Primary Care Provider [phone] Allergies No known active allergies Medications atorvastatin (LIPITOR) 40 MG tablet 04/18/2022 Active dilTIAZem CD (CARDIZEM CD) 240 MG 24 hr capsule 04/06/2022 Ac tive fenofibrate (TRIGLIDE) 160 MG tablet 04/06/2022 Active fluticasone (FLONASE) 50 MCG/ACT nasal spray 03/20/2022 Active metFORMIN XR (GLUCOPHAGE-XR) 500 MG 24 hr tablet 02/09/2022 Active ondansetron (ZOFRAN) 4 MG tablet 04/10/2022 Active pioglitazone (ACTOS) 30 MG tablet 03/01/2022 Active traZODone (DESYREL) 50 MG tablet 03/08/2022 Active Active Problems Problem Noted Date Diagnosed Date Vitamin D deficiency, not otherwise specified Peripheral arterial occlusive disease 05/15/2024 Personal history of prostate cancer 05/15/2024 Abdominal aortic aneurysm wi thout rupture, not otherwise specified 05/15/2024 Hypomagnesemia 08/03/2022 Stage 3b chronic kidney disease 05/09/2022 Diabetes mellitus, not otherwise specified 05/09 Hypertension 05/09/2022 Immunizations Immunization Administration Dates Next Due Influenza [...] Visit [facility] [address] [phone] Hawk Aiken MD [address] [phone] Health Maintenance Due Date Last Done Comments Diabetes: Hemoglobin A1C 02/21/2022 Diabetes: Ophthalmology Exam 02/21/2022 Diabetes: Pedal Pulse Checked 02/21/2022 Diabetes: Sensory Foot Exam 02/21/2022 Diabetes: Visual Foot Exam 02/21/2022 Influenza Vaccine (#1) 2024 , 12/16/2019, 01/14/2019, Additional history exists Pneumococcal Vaccine: 50+ Years Completed 12/10/2019, 03/03/2016 Hepatitis B Vaccine Aged Out No longe r eligible based on patient's age to complete this topic Insurance Medicare [facility] Medicare [facility] Care Teams Program Services Planner Relationship Specialty Start Date End Date Cristhian Durán NP [place] [address] PCP - General Nurse Practitioner 02/16/22
--- OUTSIDE RECORDS SUMMARY | 2024-09-05 08:42 | XMS_ITS | Patient Health Record ---
Author Organization [facility] Address [address] [facility] [place] [address] Care Team Providers Care Shotgun Shell Reprinting Unit Operator Name Role Phone Cristhian Garcia Primary Care Provider Unav ailable Black, Estela Unavailable [phone] Allergies No Known Allergies Reason For Referral No Information Medications Medication SIG (Take, Route, Frequency, Duration) Notes Start Date End Date Status Vitamin D3 50 MCG (1999) TAKE 1 CAPSULE BY MOUTH DAILY Oral; Duration: 90 Active Diabetic Insoles Not -Taking Extra Depth Orthopedic Shoes (1 Pair) with Customized Heat Molded Multidensity Innersoles (3 Pair) as directed Dx: NIDDM/Polyneuropathy (E11.42), Hammertoe Foot Deformity (M20.41,M20.42), Preulcerative Skin Lesion(s) (L85.1 Not-Taking Ondansetron HCl 4 MG Oral; Duration: 90 Active Irbesartan 150 MG Oral; Duration: 90 Active glyBURIDE Active Pantoprazole Sodium 20 MG Oral; Duration: 90 Active Actos 15 MG 1 tablet Orally Once a day; Duration: 30 day(s) Active Metformin & Diet Manage Prod 500 MG as directed Orally Act janis Extra-Depth Diabetic Shoes with 3 Pair Custom heat-molded multi-density innersoles . for 1 year . Dx:hammertoes and pre-ulcerative callous; Duration: . 07/25/2013 Not-Taking Extra Depth Orthopedic Shoes (1 Pair) with Customized Heat Molded Multidensity Innersoles (3 Pair) as directed Dx: NIDDM/Polyneuropathy (E11.42), Hammertoe Foot Deformity (M20.41,M20.42), Preulcerative Skin Lesion(s) (L85.1 07/17/2017 Not-Taking Chantix 0.5 MG 1 tablet Orally Once a day; Duration: 30 day(s) Not-Taking Extra Depth Orthopedic Shoes [...] and at bedtime Orally Four times a day; Duration: 30 day(s) Not-Taking Extra-Depth Diabetic Shoes with 3 Pair Custom heat-molded multi-density innersoles . for 1 year . Dx:hammertoes and pre-ulcerative callous; Duration: . Not-Taking Gemfibrozil 600 MG 1 tablet Orally Twic e a day; Duration: 30 day(s) Active Ammonium Lactate 12 % 1 application Externally to affected areas of dry skin to feet except for between the toes Twice a day; Duration: 30 days Active Trazodone & Diet Manage Prod 50 MG as directed Orally Not- Taking OneTouch Ultra - USE TO CHECK BLOOD SUGAR EVERY DAY In Vitro; Duration: 90 E11,Unavaila ble Active Fluticasone Propionate 50 MCG/ACT Nasal; Duration: 60 Active Pioglitazone HCl 30 MG Oral; Duration: 90 Active Fenofibrate 160 MG Oral; Duration: 90 Active traZODone HCl 50 MG Oral; Duration: 90 Active dilTIAZem HCl ER Coated Beads 240 MG Oral; Duration: 90 Ac tive Atorvastatin Calcium 40 MG Oral; Duration: 90 Active Magnesium 200 MG TAKE 1 TABLET BY MOUTH TWICE DAILY Oral; Duration: 5 Active Immunizations Vaccine Route Administration Date Status [...] Problem Acquired hammer toe of right foot (0009773727038875 ) Other hammer toe(s) (acquired), right foot (M20.41) Active confirmed Problem Acquired hammer toe of left foot (3012043504218411 ) Other hammer toe(s) (acquired), left foot (M20.42) Active confirmed Problem Polyneuropathy due to type 2 diabetes mellitus (744318902) Type 2 diabetes mellitus with diabetic polyneuropathy (E11.42) Active confirmed Vital Signs Blood pressure diastolic 70 mm Hg 03/07/2024 Height 5 ft 6 in in 03/07/2024 Blood pressure systolic 120 mm Hg 03/07/2024 Weight 140 lbs 03/07/2024 BMI 22.59 kg/m2 03/07/2024 Procedures Procedure Date Ordered Date Performed Result Body Sit e 18959-WXPA SKIN LESIONS, 2 TO 4 03/07/2024 N/A 21906-KEVY NAIL(S) 03/07/2024 N/A Encounters Encounter Location Date Provider Diagnosis [facility] [place] [address] [place] [address] 03/07/2024 Estela Black Type 2 diabetes mellitus with diabetic polyneuropathy E11.42 and Xerosis of skin L85.3 Assessments Encounter Date Diagnosis (ICD Code) Assessment Notes Treatment Notes Treatment Clinical Notes Section Notes 03/07/2024 Type 2 diabetes mellitus with diabetic polyneuropathy (ICD-10 - E11.42) 03/07/2024 Xerosis of skin (ICD-10 - L85.3) Plan Of Treatment Pending Test Test Name Order Date 20090-WVDT SKIN LESIONS, OVER 4 12/07/19 11 05004-MNKE SKIN LESIONS, OVER 4 06/26/19 13 84211-OCGX SKIN LESIONS, OVER 4 01/01/20 13 06977-OHQU SKIN LESIONS, OVER 4 07/26/19 14 68282-PHLE SKIN LESIONS, OVER 4 01/16/20 14 19940-RKGT SKIN LESIONS, OVER 4 07/17/19 15 59495-YZWQ SKIN LESIONS, 2 TO 4 01/15/20 15 18763-ITCU SKIN LESIONS, 2 TO 4 12/22/19 12 86303-HPHV SKIN LESIONS, 2 TO 4 06/20/19 12 36645-EPCE SKIN LESIONS, 2 TO 4 07/20/19 16 90399-KUYO SKIN LESIONS, 2 TO 4 01/18/20 16 74156-CTKX SKIN LESIONS, 2 TO 4 07/19/19 17 12696-RXDU SKIN LESIONS, 2 TO 4 01/24/20 17 68163-HBAF SKIN LESIONS, 2 TO 4 01/16/20 18 83678-WQLI SKIN LESIONS, 2 TO 4 08/21/19 19 28202-TOZG SKIN LESIONS, 2 TO 4 02/25/19 20 16756-NCBY SKIN LESIONS, 2 TO 4 08/08/19 20 56777-CMUS SKIN LESIONS, 2 TO 4 02/03/20 20 72780-SDWY SKIN LESIONS, 2 TO 4 07/21/19 21 97813-YTOD SKIN LESIONS, 2 TO 4 02/22/19 22 64955-UZHL SKIN LESIONS, 2 TO 4 08/31/19 22 72111-WDXY SKIN LESIONS, 2 TO 4 02/24/19 23 11606-QAFO SKIN LESIONS, 2 TO 4 08/26/19 23 32853-MGWZ SKIN LESIONS, 2 TO 4 03/02/19 24 55989-ZZON SKIN LESIONS, 2 TO 4 08/31/19 24 28032-DVMG SKIN LESIONS, 2 TO 4 03/07/19 25 19121-MGXC NAIL(S) 03/07/2024 36206-JQJB NAIL(S) 08/31/2023 07988-YAWV NAIL(S) 03/02/2023 41366-ESGN NAIL(S) 08/25/2022 16685-BHVL NAIL(S) 02/24/2022 63590-TRXB NAIL(S) 08/30/2021 89454-VGZX NAIL(S) 02/22/2021 80587-FSTR NAIL(S) 07/20/2020 93730-XZAX NAIL(S) 02/03/2020 89609-FXZN NAIL(S) 08/08/2019 15610-HFBC NAIL(S) 02/25/2019 21779-FQKP NAIL(S) 08/20/2018 52949-LSEF NAIL(S) 01/15/2018 94820-EXPG NAIL(S) 07/18/2016 63076-JBRL NAIL(S) 01/18/2016 56608-SGPI NAIL(S) 07/20/2015 99090-ZVJP NAIL(S) 12/22/2011 55363-OQVW NAIL(S) 12/06/2010 49267-LHHD NAIL(S) 06/20/2011 96065-MJRB NAIL(S) 06/25/2012 26510-XFIP NAIL(S) 12/31/2012 21682-ZUWK NAIL(S) 01/14/2015 47543-UQYA NAIL(S) 07/16/2014 10024-GWXM NAIL(S) 01/15/2014 81440-AOON NAIL(S) 07/25/2013 A9027-UGYPEHZA DYSTROPHIC NAILS ANY # Next Appt Details Provider Name:Estela Bell , 09/05/2024 09:00:00 AM, [address] [facility], [place], [address], Insurance Providers Payer Name Payer Address Payer Phone Subscriber Number Group Number Insured Name Patient Relationship to Insured Coverage Start Date Coverage End Date Medicare National Govt [facility] [address] [facility] [place] [address] [id number] Larry Pichardo Self - patient is the insured [employer] [address] [place] [address] [phone] [id number] Larry Pichardo Self - patient is the insured Medical (General) History Medical History History ICD Code mumps measles hypertension diabetic chicken pox cancer Cholesterol Surgical History Surgery Date(Month/Year) opened artery 08/08/2018 cataract surgery
--- OUTSIDE RECORDS SUMMARY | 2024-09-05 08:42 | XMS_ITS ---
Author Name [facility] Organization Unknown Encounters Encounter Type Encounter Reason Primary Diagnosis Location Date Ambulatory [facility] 04/25/2023 Care Team Organization Name Specialty Phone Email Start Date End Da te [facility] 04/25/2023 [facility] 04/25/2023 05/01/2024
--- OUTSIDE RECORDS SUMMARY | 2024-09-05 08:42 | XMS_ITS | Patient Health Record ---
Author Organization [facility] Address [address] [place] [address] Care Team Providers Care Home Visit Field Care Manager Name Role Phone TOMMY DURÁN Primary Care Provider Kris Tate [phone] Allergies No Known Allergies Results Component Value Reference Range Notes CT abdomen pelvis wo con Reviewed date:12/21/2023 04:34:52 PM Interpretation: Performing Lab: Notes/Report: [address] [address] [address] Scan Report Signed Patient: Kris Coleman MR#: [id number] : 1940 Acct:[id number] Age/Sex: 83 / M ADM Date: 12/15/23 Loc: .CT Attending Dr: Kris Infante MD Ordering Physician: Kris Infante MD Date of Service: 12/15/23 Procedure(s): CT abdomen pelvis wo IV con Accession Number(s): [id number] cc: Tommy Durán [facility]; Kris Infante MD EXAMINATION: CT ABDOMEN AND [...] Barrera MD in OV> 12/15/23 1632 DD/ TD/TT: 12/15/23 1335 Clinical Exercise Physiologist: Complete Blood Count Auto Di ff Reviewed date:01/04/2024 06:22:26 PM Interpretation: Performing Lab:[facility], [address] [place] [address] Notes/Report: White Blood Count 4.0 4.8-10.8 X10*3/uL [...] Panel Reviewed date:01/04/2024 06:22:38 PM Interpretation: Performing Lab:[address] [address] Notes/Report: Bilirubin Total 0.5 0.0-1.0 mg/dL Bilirubin Direct 0.2 0.0-0.5 mg/dL Aspartate Amino Transferase 39 5-37 U/L Slight Hemolysis.Interpret result with caution. Alanine Aminotransferase 19 0-40 U/L Total Protein 6.2 6.5-8.0 g/dL Albumin Level 3.7 3.5-5.0 g/dL Alkaline Phosphatase 42 39-117 U/L Basic Metabolic Panel Reviewed date:01/04/2024 06:24:42 PM Interpretation: Performing Lab:[address] [address] Notes/Report: Sodium 142 135-145 mmol/L Potassium 4.5 [...] PROFILE Reviewed date:01/04/2024 12:39:25 PM Interpretation: Performing Lab:[address] [address] Notes/Report: Iron 83 45-160 mcg/dL Slight Hemolys is.Interpret result with caution. Total Iron Binding Capacity 356 228-428 mcg/d L Percent Iron Saturation 23 15-50 % Unsaturated Iron Binding 273 Ferritin Reviewed date:01/04/2024 06:24:51 PM Interpretation: Performing Lab:[address] [address] Notes/Report: Ferritin 53 20-250 ng/mL Free T4 (Free Thyroxine) Reviewed date:01/04/2024 06:24:58 PM Interpretation: Performing Lab:[address], [place] [address] Notes/Report: Free T4 (Free Thyroxine) 1.17 0.71-1.85 ng/dL TSH reflex Free T4 Reviewed date:01/04/2024 12:39:16 PM Interpretation: Performing Lab:[facility], [address] [place] [address] Notes/Report: TSH reflex Free T4 4.01 0.32-4.0 [...] as directed Orally as directed Active Nasal [place] 0.05 % 4 sprays (2 sprays in [...] W/U Status Risk Notes Problem Epigastric pain (00586841) Epigastric abdominal pain (R10.13) Active confirmed Problem Epigastric pain (24354047) Epigastric pain (R10.13) Active confirmed Problem Perforation and abscess of small intestine co-occurrent and due to diverticulitis (disorder) (431213457) Diverticulitis of small intestine with perforation and abscess without bleeding (K57.00) Active confirmed Problem Diverticulitis of small intestine (11634819) Diverticulitis of small intestine without perforation or abscess without bleeding (K57.12) Active confirmed Problem Nausea (191503926) Nausea (R11.0) Active confir med Problem Anorexia (30171169) Anorexia (R63.0) Active con firmed Problem Early satiety (545601661) Early satiety (R68.81) Active confirmed Problem Anemia (963749648) Anemia (D64.9) Active confir med Problem Gastritis (4832708) Gastritis (K29.70) Active confirmed Problem Chronic fatigue (R53.82) Active confirmed Problem Gastroesophageal reflux disease (303852057) GERD (gastroesophageal reflux disease) (K21.9) Active confirmed Problem Loss of appetite (12528570) Decreased appetite (R63.0) Active confirmed Vital Signs Blood pressure diastolic 11 mm Hg 04/23/2024 Height 67 in 04/23/2024 Blood pressure systolic 111 mm Hg 04/23/2024 Weight 162 lbs 04/23/2024 BMI 25.37 kg/m2 04/23/2024 Encounters Encounter Location Date Provider Diagnosis [facility] [address] [place] [address] 10/24/2023 Kris Infante Diverticulitis of sm all intestine with perforation and abscess without bleeding K57.00 ; Anemia D64.9 and Chronic fatigue R53.82 [facility] [address] [place] [address] 04/23/2024 Kris Infante Diverticulitis of sm all intestine with perforation and abscess without bleeding K57.00 [facility] [address] [place] [address] 11/16[facility]20[facility] [address] [place] [address] 11/20/2023 Kris Fung [facility] [address] [place] [address] 12/05/2023 Kris Infante [facility] [address] [place] [address] 12/21/2023 Kris Fung [facility] [address] [facility] [place] [address] 01/04/2024 Kris Infante Assessments Encounter Date Diagnosis [...] protein powder until the meets with his basin operator next month. I did advise him to [...] protein powder until the meets with his basin operator next month. I did advise him to [...] keep you advised of his progress. 10/24/2023 Chronic fatigue (ICD-10 - R53.82) Overall, [...] protein powder until the meets with his basin operator next month. I did advise him to [...] advised of his progress. Plan Of Treatment Pending Test Test Name Order Date CHEM 7 PROFILE 10/24/2023 CHEM 7 PROFILE 06/26/2023 BUN 02/08/2022 BUN 06/08/2023 CREATININE 02/08/2022 LIVER [...] CBC w DIFF 08/10/2023 SED RATE (ESR) 08/10/2023 SED RATE (ESR) 06/26/2023 SED RATE (ESR) 06/08/2023 CT ABD & [...] Name:Kris Jose Infante , 04/24/2025 10:00:00 AM, [address] [place] [address], [address], [place], [address], Insurance Providers Payer Name Payer Address Payer Phone Subscriber Number Group Number Insured Name Patient Relationship to Insured Coverage Start Date Coverage End Date MEDICARE OF [place] [address] [place] [address] [id number] KRIS BAKER Self - patient is the insured [employer] CLAIMS [address] [place] [address] [id number] KRIS BAKER Self - patient is the insured Medical (General) History Medical History History ICD Code Kidney stones COPD Prostate cancer NIDDM Hypertension Denies [place],CVA,Lung disease,renal disease Negative colonoscopy > 10 years [...] MARSHAL-followed by vascular surgery, Dr. Soler, at [facility]. He felt this presented more of a chronic issue as opposed to an acute problem. Inflammation and small absce sses in the region of the small bowel seen on the CT scan during the workup for the abdominal pain in April of 2023. This was treated with IV and subsequent oral antibiotics at [facility]. There was the finding of multiple [...]
--- OUTSIDE RECORDS SUMMARY | 2024-09-05 08:42 | XMS_ITS | Clinical Summary ---
Author Organization [facility] Address [address] [place] [address] Care Team Providers Care Weather Reporter Name Role Phone Unavailable Primary Care Provider [...]
== END 2024-09-05 08:44 | disposition home or self-care (01) ==
LOC: HO.HMCC 08:25
PROVIDERS: PCP Nurse Practitioner Family; Visit Provider Nurse Practitioner Family
DX: E53.8 Deficiency of other specified B group vitamins (principal)

== ENCOUNTER → 2024-09-05 08:24 | Outpatient (BNVA) | payer MEDICARE, SELFPAY | PROVIDERS: PCP Nurse Practitioner Family; Visit Provider Nurse Practitioner Family | DX: E53.8 Deficiency of other specified B group vitamins (principal) | CPT/HCPCS: 96372; J3420 ==

== ENCOUNTER 2024-09-30 12:41 | Outpatient (REF) | payer MEDICARE, SELFPAY ==
--- OUTSIDE RECORDS SUMMARY | 2024-09-30 13:36 | XMS_ITS | Patient Health Record ---
[facility] Address [address] [facility] [place] [address] Care Team Providers Care Shank Threader Name Role Phone Cristhian Garcia Primary Care Provider Unav ailable Black, Estela Unavailable [phone] Allergies No Known Allergies Results Component Value Reference Range Notes HEMOGLOBIN A1C (GLYCOHEMOGLO BIN) Reviewed date:09/05/2024 08:47:31 AM Interpretation: Performing Lab: Notes/Report: HEMOGLOBIN A1C % (HH) 6.6 Reason For Referral No Information Medications Medication SIG (Take, Route, Frequency, Duration) Notes Start Date End Date Status Extra Depth Orthopedic Shoes (1 Pair) with Customized Heat Molded Multidensity Innersoles (3 Pair) Dx: NIDDM/Polyneuropathy (E11.42), Hammertoe Foot Deformity (M20.41,M20.42), Preulcerative Skin Lesion(s) (L85.1); Duration: 365 days 09/05/2024 Active Vitamin D3 50 MCG (1999) TAKE 1 CAPSULE BY MOUTH DAILY Oral; Duration: 90 Active Magnesium 200 MG TAKE 1 TABLET BY MOUTH TWICE DAILY Oral; Duration: 5 Active Atorvastatin Calcium 40 MG Oral; Duration: 90 Active dilTIAZem HCl ER Coated Beads 240 MG Oral; Duration: 90 Ac tive traZODone HCl 50 MG Oral; Duration: 90 Active Fenofibrate 160 MG Oral; Duration: 90 Active Pioglitazone HCl 30 MG Oral; Duration: 90 Active Pantoprazole Sodium 20 MG Oral; Duration: 90 Active Extra-Depth Diabetic Shoes with 3 Pair Custom heat-molded multi-density innersoles . for 1 year . Dx:hammertoes and pre-ulcerative callous; Duration: . 07/25/2013 Not-Taking glyBURIDE Active Chantix 0.5 MG 1 tablet Orally Once a day; Duration: 30 day(s) Not-Taking Irbesartan 150 MG Oral; Duration: 90 Active Ondansetron HCl 4 MG Oral; Duration: 90 Active Diabetic Insoles Not -Taking Trazodone & Diet Manage Prod 50 MG as directed Orally Not- Taking dilTIAZem HCl 30 MG 1 tablet before meal s and at bedtime Orally Four times a day; Duration: 30 day(s) Not-Taking Extra Depth Orthopedic Shoes (1 Pair) with Customized Heat Molded Multidensity Innersoles (3 Pair) as directed Dx: NIDDM/Polyneuropathy (E11.42), Hammertoe Foot Deformity (M20.41,M20.42), Preulcerative Skin Lesion(s) (L85.1 Not-Taking Gemfibrozil 600 MG 1 tablet Orally Twic e a day; Duration: 30 day(s) Active Extra Depth Orthopedic Shoes (1 Pair) with Customized Heat Molded Multidensity Innersoles (3 Pair) as directed Dx: NIDDM/Polyneuropathy (E11.42), Hammertoe Foot Deformity (M20.41,M20.42), Preulcerative Skin Lesion(s) (L85.1 07/20/2015 Not-Taking Extra-Depth Diabetic Shoes with 3 Pair Custom heat-molded multi-density innersoles . for 1 year . Dx:hammertoes and pre-ulcerative callous; Duration: . Not-Taking Metformin & Diet Manage Prod 500 MG as directed Orally Act janis Extra Depth Orthopedic Shoes (1 Pair) with Customized Heat Molded Multidensity Innersoles (3 Pair) as directed Dx: NIDDM/Polyneuropathy (E11.42), Hammertoe Foot Deformity (M20.41,M20.42), Preulcerative Skin Lesion(s) (L85.1 07/17/2017 Not-Taking Actos 15 MG 1 tablet Orally Once a day; Duration: 30 day(s) Active Extra Depth Orthopedic Shoes (1 Pair) with Customized Heat Molded Multidensity Innersoles (3 Pair) as directed Dx: NIDDM/Polyneuropathy (E11.42), Hammertoe Foot Deformity (M20.41,M20.42), Preulcerative Skin Lesion(s) (L85.1 07/18/2016 Not-Taking Fluticasone Propionate 50 MCG/ACT Nasal; Duration: 60 Active OneTouch Ultra - USE TO CHECK BLOOD SUGAR EVERY DAY In Vitro; Duration: 90 E119,Unavaila ble Active Ammonium Lactate 12 % 1 application Externally to affected areas of dry skin to feet except for between the toes Twice a day; Duration: 30 days Active Immunizations Vaccine Route Administration Date Status Comme nts Influenza Unknown 12/15/2015 Administered Influenza Unknown 03/17/2017 Administered Influenza Unknown 10/14/2017 Administered Influenza Unknown 01/14/2019 Administered Influenza Unknown 12/16/2019 Administered Influenza Unknown 10/14/2020 Administered Influenza Unknown 12/14/2022 Administered Influenza Unknown 10/15/2023 Administered Social History Tobacco Use: Social History [...] (Standard) Question Answer Notes Tobacco use: Nonsmoker AUDIT-C (Standard) Question Answer Notes Did you have a drink containing alcohol in the p ast year? No Points 0 Interpretation Negative Problems Problem Type SNOMED Code ICD Code Onset Dates Problem Status W/U Status Risk Notes Problem Acquired hammer toe of right foot (7332395962452810 ) Other hammer toe(s) (acquired), right foot (M20.41) Active confirmed Problem Acquired hammer toe of left foot (6545729537282424 ) Other hammer toe(s) (acquired), left foot (M20.42) Active confirmed Problem Polyneuropathy due to type 2 diabetes mellitus (356673329) Type 2 diabetes mellitus with diabetic polyneuropathy (E11.42) Active confirmed Vital Signs Blood pressure diastolic 70 mm Hg 09/05/2024 Height 5 ft 6 in in 09/05/2024 Blood pressure systolic 120 mm Hg 09/05/2024 Weight 145 lbs 09/05/2024 BMI 23.4 kg/m2 09/05/2024 Procedures Procedure Date Ordered Date Performed Result Body Sit e 31642-PCZY SKIN LESIONS, 2 TO 4 03/07/2024 N/A 54956-WWRZ NAIL(S) 03/07/2024 N/A 01169-QKLG SKIN LESIONS, 2 TO 4 09/05/2024 N/A 06145-IDHT NAIL(S) 09/05/2024 N/A Encounters Encounter Location Date Provider Diagnosis [facility] [address] [address] 03/07/2024 Estela Black Type 2 diabetes mellitus with diabetic polyneuropathy E11.42 and Xerosis of skin L85.3 [facility] [address] 09/05/2024 Estela Black Type 2 diabetes mellitus with diabetic polyneuropathy E11.42 ; Other hammer toe(s) (acquired), right foot M20.41 ; Xerosis of skin L85.3 and Other hammer toe(s) (acquired), left foot M20.42 Assessments Encounter Date Diagnosis (ICD Code) Assessment Notes Treatment Notes Treatment Clinical Notes Section Notes 03/07/2024 Type 2 diabetes mellitus with diabetic polyneuropathy (ICD-10 - E11.42) 03/07/2024 Xerosis of skin (ICD-10 - L85.3) 09/05/2024 Other hammer toe(s) (acquired), right foot (ICD-10 - M20.41) Patient Educated with: DIABETIC FOOT CARE INSTRUCTIONS. pdf (DIABETIC FOOT CARE INSTRUCTIONS. pdf) 09/05/2024 Type 2 diabetes mellitus with diabetic polyneuropathy (ICD-10 - E11.42) 09/05/2024 Xerosis of skin (ICD-10 - L85.3) 09/05/2024 Other hammer toe(s) (acquired), left foot (ICD-10 - M20.42) Plan Of Treatment Pending Test Test Name Order Date 15216-TVXL SKIN LESIONS, OVER 4 12/07/19 11 27463-JILX SKIN LESIONS, OVER 4 06/26/19 13 54643-JVQI SKIN LESIONS, OVER 4 01/01/20 13 28581-DNAD SKIN LESIONS, OVER 4 07/26/19 14 74196-HRCZ SKIN LESIONS, OVER 4 01/16/20 14 20792-IORY SKIN LESIONS, OVER 4 07/17/19 15 55743-AWHE SKIN LESIONS, 2 TO 4 01/15/20 15 27131-YZHK SKIN LESIONS, 2 TO 4 12/22/19 12 56421-HFFT SKIN LESIONS, 2 TO 4 06/20/19 12 97906-PFFG SKIN LESIONS, 2 TO 4 07/20/19 16 58130-NZHR SKIN LESIONS, 2 TO 4 01/18/20 16 25700-HZRZ SKIN LESIONS, 2 TO 4 07/19/19 17 41151-ZHJW SKIN LESIONS, 2 TO 4 01/24/20 17 65384-QWZY SKIN LESIONS, 2 TO 4 01/16/20 18 08501-JKFE SKIN LESIONS, 2 TO 4 08/21/19 19 57924-FZEY SKIN LESIONS, 2 TO 4 02/25/19 20 07163-ZXFF SKIN LESIONS, 2 TO 4 08/08/19 20 58079-UZFY SKIN LESIONS, 2 TO 4 02/03/20 20 62194-GNYK SKIN LESIONS, 2 TO 4 07/21/19 21 71711-RBNC SKIN LESIONS, 2 TO 4 02/22/19 22 88555-BSFQ SKIN LESIONS, 2 TO 4 08/31/19 22 20606-TOEA SKIN LESIONS, 2 TO 4 02/24/19 23 80962-UWRF SKIN LESIONS, 2 TO 4 08/26/19 23 89520-ERKX SKIN LESIONS, 2 TO 4 03/02/19 24 61749-QFKO SKIN LESIONS, 2 TO 4 08/31/19 24 73880-TORE SKIN LESIONS, 2 TO 4 03/07/19 25 76030-JGHY SKIN LESIONS, 2 TO 4 09/06/19 25 04509-FDEO NAIL(S) 09/05/2024 05999-HILP NAIL(S) 03/07/2024 60751-NDRY NAIL(S) 08/31/2023 60615-PVHB NAIL(S) 03/02/2023 00067-DXVL NAIL(S) 08/25/2022 66226-IWAX NAIL(S) 02/24/2022 51923-NFAW NAIL(S) 08/30/2021 17466-OCYT NAIL(S) 02/22/2021 70399-VTDX NAIL(S) 07/20/2020 49861-IOHH NAIL(S) 02/03/2020 29299-QDIK NAIL(S) 08/08/2019 17520-SOXA NAIL(S) 02/25/2019 09670-KIQI NAIL(S) 08/20/2018 85026-SEWY NAIL(S) 01/15/2018 12263-OCXS NAIL(S) 07/18/2016 58603-BZYG NAIL(S) 01/18/2016 70002-WMLQ NAIL(S) 07/20/2015 98577-HCPC NAIL(S) 12/22/2011 84781-WXBP NAIL(S) 12/06/2010 42202-CRID NAIL(S) 06/20/2011 58592-THLK NAIL(S) 06/25/2012 59358-EPPB NAIL(S) 12/31/2012 98739-XJBX NAIL(S) 01/14/2015 98012-KHOM NAIL(S) 07/16/2014 21999-UUSU NAIL(S) 01/15/2014 28333-GFUQ NAIL(S) 07/25/2013 K8705-EDVAQAPQ DYSTROPHIC NAILS ANY # Next Appt Details Provider Name:Estela Bell , 03/06/2025 09:00:00 AM, [address] [place], [address], Insurance Providers Payer Name Payer Address Payer Phone Subscriber Number Group Number Insured Name Patient Relationship to Insured Coverage Start Date Coverage End Date Medicare National Govt S[employer] [address] [place] [address] [id number] Larry Pichardo Self - patient is the insured [employer] Blue [employer] [address] [place] [address] [phone] [id number] Larry Pichardo Self - patient is the insured Medical (General) History Medical History History ICD Code mumps measles hypertension diabetic chicken pox cancer Cholesterol Surgical History Surgery Date(Month/Year) opened artery 08/08/2018 cataract surgery
--- OUTSIDE RECORDS SUMMARY | 2024-09-30 13:36 | XMS_ITS | Clinical Summary ---
Author Organization [facility] Address [address] [place] [address] Care Team Providers Care Sign Carpenter Name Role Phone Unavailable Primary Care Provider [...]
--- OUTSIDE RECORDS SUMMARY | 2024-09-30 13:36 | XMS_ITS | Patient Health Record ---
Author Organization [facility] Address [address] [place] [address] Care Team Providers Care Credit Administration Manager Name Role Phone TOMMY DURÁN Primary Care Provider Kris Tate [phone] Allergies No Known Allergies Results Component Value Reference Range Notes CT abdomen pelvis wo con Reviewed date:12/21/2023 04:34:52 PM Interpretation: Performing Lab: Notes/Report: [address] [address] [address] Scan Report Signed Patient: Kris Coleman MR#: [id number] : 1940 Acct:[id number] Age/Sex: 83 / M ADM Date: 12/15/23 Loc: .CT Attending Dr: Kris Infante MD Ordering Physician: Kris Infante MD Date of Service: 12/15/23 Procedure(s): CT abdomen pelvis wo IV con Accession Number(s): [id number] cc: Tommy Durán [facility]; Kris Infante MD EXAMINATION: CT [...] OV> 12/15/23 1632 DD/ TD/TT: 12/15/23 1335 Dairy Helper: Complete Blood Count Auto Di ff Reviewed date:01/04/2024 06:22:26 PM Interpretation: Performing Lab:[facility], [address] [place] [address] Notes/Report: White Blood Count 4.0 4.8-10.8 X10*3/uL [...] Panel Reviewed date:01/04/2024 06:22:38 PM Interpretation: Performing Lab:[address] [address] Notes/Report: Bilirubin Total 0.5 0.0-1.0 mg/dL Bilirubin Direct 0.2 0.0-0.5 mg/dL Aspartate Amino Transferase 39 5-37 U/L Slight Hemolysis.Interpret result with caution. Alanine Aminotransferase 19 0-40 U/L Total Protein 6.2 6.5-8.0 g/dL Albumin Level 3.7 3.5-5.0 g/dL Alkaline Phosphatase 42 39-117 U/L Basic Metabolic Panel Reviewed date:01/04/2024 06:24:42 PM Interpretation: Performing Lab:[address] [address] Notes/Report: Sodium 142 135-145 mmol/L Potassium 4.5 [...] PROFILE Reviewed date:01/04/2024 12:39:25 PM Interpretation: Performing Lab:[address] [address] Notes/Report: Iron 83 45-160 mcg/dL Slight Hemolys is.Interpret result with caution. Total Iron Binding Capacity 356 228-428 mcg/d L Percent Iron Saturation 23 15-50 % Unsaturated Iron Binding 273 Ferritin Reviewed date:01/04/2024 06:24:51 PM Interpretation: Performing Lab:[address] [address] Notes/Report: Ferritin 53 20-250 ng/mL Free T4 (Free Thyroxine) Reviewed date:01/04/2024 06:24:58 PM Interpretation: Performing Lab:[address], [place] [address] Notes/Report: Free T4 (Free Thyroxine) 1.17 0.71-1.85 ng/dL TSH reflex Free T4 Reviewed date:01/04/2024 12:39:16 PM Interpretation: Performing Lab:[facility], [address] [place] [address] Notes/Report: TSH reflex Free T4 4.01 0.32-4.0 [...] as directed Orally as directed Active Nasal [place] 0.05 % 4 sprays (2 sprays in [...] W/U Status Risk Notes Problem Epigastric pain (68334548) Epigastric abdominal pain (R10.13) Active confirmed Problem Epigastric pain (50312946) Epigastric pain (R10.13) Active confirmed Problem Perforation and abscess of small intestine co-occurrent and due to diverticulitis (disorder) (047884799) Diverticulitis of small intestine with perforation and abscess without bleeding (K57.00) Active confirmed Problem Diverticulitis of small intestine (83552295) Diverticulitis of small intestine without perforation or abscess without bleeding (K57.12) Active confirmed Problem Nausea (577695596) Nausea (R11.0) Active confir med Problem Anorexia (15419707) Anorexia (R63.0) Active con firmed Problem Early satiety (793584127) Early satiety (R68.81) Active confirmed Problem Anemia (162911901) Anemia (D64.9) Active confir med Problem Gastritis (1060198) Gastritis (K29.70) Active confirmed Problem Chronic fatigue syndrome (30133458) Chronic fatigue (R53.82) Active confirmed Problem Gastroesophageal reflux disease (177969815) GERD (gastroesophageal reflux disease) (K21.9) Active confirmed Problem Loss of appetite (76837407) Decreased appetite (R63.0) Active confirmed Vital Signs Blood pressure diastolic 11 mm Hg 04/23/2024 Height 67 in 04/23/2024 Blood pressure systolic 111 mm Hg 04/23/2024 Weight 162 lbs 04/23/2024 BMI 25.37 kg/m2 04/23/2024 Encounters Encounter Location Date Provider Diagnosis [facility] [address] [place] [address] 10/24/2023 Kris Infante Diverticulitis of sm all intestine with perforation and abscess without bleeding K57.00 ; Anemia D64.9 and Chronic fatigue R53.82 [facility] [address] [place] [address] 04/23/2024 Kris Infante Diverticulitis of sm all intestine with perforation and abscess without bleeding K57.00 [facility] [address] [place] [address] 11/16/2023 Kris Infante [facility] [address] [place] [address] 11/20/2023 Kris Infante [facility] [address] [place] [address] 12/05/2023 Kris Infante [facility] [address] [place] [address] 12/21/2023 Kris Infante [facility] [address] [place] [address] 01/04/2024 Kris Infante Assessments Encounter Date Diagnosis [...] protein powder until the meets with his malthouse laborer next month. I did advise him to [...] protein powder until the meets with his malthouse laborer next month. I did advise him to [...] protein powder until the meets with his malthouse laborer next month. I did advise him to [...] remain well I will plan to see Miahi in 6 months for followup visit. I [...] 08/10/2023 IRON + IBC (FE) 10/24/2023 CRP 08/10/2023 CRP 06/26/2023 CRP 06/08/2023 VITAMIN B12 AND FOLATE 06/20/2023 CBC w DIFF 06/08/2023 CBC w DIFF 06/20/2023 CBC w DIFF 04/20/2023 CBC w DIFF 10/24/2023 CBC w DIFF 08/10/2023 CBC w DIFF 06/26/2023 SED RATE (ESR) 06/26/2023 SED RATE (ESR) [...] Provider Name:Kris Infante , 04/24/2025 10:00:00 AM, [address] [place] [address], [address], [place], [address], Insurance Providers Payer Name Payer Address Payer Phone Subscriber Number Group Number Insured Name Patient Relationship to Insured Coverage Start Date Coverage End Date MEDICARE OF [place] [address] [place] [address] [id number] KRIS BAKER Self - patient is the insured [employer] ATT[employer] CLAIMS [address] [place] [address] [phone] [id number] KRIS BAKER Self - patient is the insured Medical (General) History Medical History History ICD Code Kidney stones COPD Prostate cancer NIDDM Hypertension Denies NH,CVA,Lung disease,renal disease Negative colonoscopy > 10 years [...] MARSHAL-followed by vascular surgery, Dr. Soler, at [facility]. He felt this presented more of a chronic issue as opposed to an acute problem. Inflammation and small absce sses in the region of the small bowel seen on the CT scan during the workup for the abdominal pain in April of 2023. This was treated with IV and subsequent oral antibiotics at [facility]. There was the finding of multiple [...]
--- OUTSIDE RECORDS SUMMARY | 2024-09-30 13:36 | XMS_ITS | Clinical Summary ---
Author Organization [facility] Address [address] [address] Phone Care Team Providers Care Foreclosure Paralegal Name Role Phone Cristhian Durán NP Primary Care Provider [phone] Allergies No known active allergies Medications atorvastatin [...] [facility] [address] [phone] Hawk Aiken MD [address] [phone] Health Maintenance Due Date Last Done Comments [...] Medicare [facility] Care Teams Foreclosure Paralegal Relationship Specialty Start Date End Date Cristhian Durán NP [facility] [place] [address] PCP - General Nurse Practitioner 02/16/22
[2024-09-30 17:27] LABS: Prostate Specific Antigen 0.65 ng/mL (<0.05-4.0)
== END 2024-09-30 12:42 | disposition home or self-care (01) ==
LOC: HO.HMGCLDS 12:41
PROVIDERS: PCP Nurse Practitioner Family; Visit Provider Urology
DX: C61 Malignant neoplasm of prostate (principal)
CPT/HCPCS: 36415; 84153

== ENCOUNTER 2024-10-03 08:26 | Outpatient (AMB) | payer MEDICARE, SELFPAY ==
--- NOTE | 2024-10-03 08:48 | AM.OFFVISNUR ---
Intake Visit Reasons: B-12 shot Allergies No Known Allergies (No Known Allergies*) Allergy (Verified 07/16/24 11:30) Nursing Note Pt came in for Vitamin B12 injection to left deltoid. Pt tolerated well. Assessment & Plan Assessment & Plan Orders: Orders AMB Vitamin B12 Injection Patient Supplied Today E53.8 - Deficiency of other specified B group vitamins Medications: New cyanocobalamin (vitamin B-12) 1,000 mcg IM ONCE 1 mL 0RF E53.8 - Deficiency of other specified B group vitamins Coding
--- OUTSIDE RECORDS SUMMARY | 2024-10-03 09:20 | XMS_ITS | Clinical Summary ---
Author Organization [facility] Address [address] [place] [address] Care Team Providers Care Brass Wind Instrument Maker Name Role Phone Unavailable Primary Care [...]
--- OUTSIDE RECORDS SUMMARY | 2024-10-03 09:21 | XMS_ITS | Patient Health Record ---
Author Organization [facility] Address [address] [place] [address] Care Team Providers Care Contractor General Engineering Name Role Phone TOMMY DURÁN Primary Care Provider Kris Tate [phone] Allergies No Known Allergies Results Component Value Reference Range Notes CT abdomen pelvis wo con Reviewed date:12/21/2023 04:34:52 PM Interpretation: Performing Lab: Notes/Report: [address] [address] [address] Scan Report Signed Patient: Kris Coleman MR#: [id number] : 1940 Acct:[id number] Age/Sex: 83 / M ADM Date: 12/15/23 Loc: .CT Attending Dr: Kris Infante MD Ordering Physician: Kris Infante MD Date of Service: 12/15/23 Procedure(s): CT abdomen pelvis wo IV con Accession Number(s): [id number] cc: Tommy Durán [facility]; Kris Infante MD EXAMINATION: CT ABDOMEN AND [...] MD 12/15/2023 04:32 PM EDT Dictated By: Adrina Barrera MD Signed By: <Electronically signed by Adrian Barrera MD in OV> 12/15/23 1632 DD/ TD/TT: 12/15/23 1335 Basket Weaver: Complete Blood Count Auto Di ff Reviewed date:01/04/2024 06:22:26 PM Interpretation: Performing Lab:[facility], [address] [place] [address] Notes/Report: White Blood Count 4.0 4.8-10.8 X10*3/uL [...] Panel Reviewed date:01/04/2024 06:22:38 PM Interpretation: Performing Lab:[address] [address] Notes/Report: Bilirubin Total 0.5 0.0-1.0 mg/dL Bilirubin Direct 0.2 0.0-0.5 mg/dL Aspartate Amino Transferase 39 5-37 U/L Slight Hemolysis.Interpret result with caution. Alanine Aminotransferase 19 0-40 U/L Total Protein 6.2 6.5-8.0 g/dL Albumin Level 3.7 3.5-5.0 g/dL Alkaline Phosphatase 42 39-117 U/L Basic Metabolic Panel Reviewed date:01/04/2024 06:24:42 PM Interpretation: Performing Lab:[address] [address] Notes/Report: Sodium 142 135-145 mmol/L Potassium 4.5 [...] PROFILE Reviewed date:01/04/2024 12:39:25 PM Interpretation: Performing Lab:[address] [address] Notes/Report: Iron 83 45-160 mcg/dL Slight Hemolys is.Interpret result with caution. Total Iron Binding Capacity 356 228-428 mcg/d L Percent Iron Saturation 23 15-50 % Unsaturated Iron Binding 273 Ferritin Reviewed date:01/04/2024 06:24:51 PM Interpretation: Performing Lab:[address] [address] Notes/Report: Ferritin 53 20-250 ng/mL Free T4 (Free Thyroxine) Reviewed date:01/04/2024 06:24:58 PM Interpretation: Performing Lab:[address], [place] [address] Notes/Report: Free T4 (Free Thyroxine) 1.17 0.71-1.85 ng/dL TSH reflex Free T4 Reviewed date:01/04/2024 12:39:16 PM Interpretation: Performing Lab:[facility], [address] [place] [address] Notes/Report: TSH reflex Free T4 4.01 0.32-4.0 [...] as directed Orally as directed Active Nasal [place] 0.05 % 4 sprays (2 sprays in [...] W/U Status Risk Notes Problem Epigastric pain (22694038) Epigastric abdominal pain (R10.13) Active confirmed Problem Epigastric pain (86824555) Epigastric pain (R10.13) Active confirmed Problem Perforation and abscess of small intestine co-occurrent and due to diverticulitis (disorder) (965722030) Diverticulitis of small intestine with perforation and abscess without bleeding (K57.00) Active confirmed Problem Diverticulitis of small intestine (24606879) Diverticulitis of small intestine without perforation or abscess without bleeding (K57.12) Active confirmed Problem Nausea (831707365) Nausea (R11.0) Active confir med Problem Anorexia (89909280) Anorexia (R63.0) Active con firmed Problem Early satiety (242301580) Early satiety (R68.81) Active confirmed Problem Anemia (561207427) Anemia (D64.9) Active confir med Problem Gastritis (9224785) Gastritis (K29.70) Active confirmed Problem Chronic fatigue syndrome (94302615) Chronic fatigue (R53.82) Active confirmed Problem Gastroesophageal reflux disease (762669634) GERD (gastroesophageal reflux disease) (K21.9) Active confirmed Problem Loss of appetite (25449674) Decreased appetite (R63.0) Active confirmed Vital Signs Blood pressure diastolic 11 mm Hg 04/23/2024 Height 67 in 04/23/2024 Blood pressure systolic 111 mm Hg 04/23/2024 Weight 162 lbs 04/23/2024 BMI 25.37 kg/m2 04/23/2024 Encounters Encounter Location Date Provider Diagnosis [facility] [address] [place] [address] 10/24/2023 Kris Infante Diverticulitis of sm all intestine with perforation and abscess without bleeding K57.00 ; Anemia D64.9 and Chronic fatigue R53.82 [facility] [address] [place] [address] 04/23/2024 Kris Infante Diverticulitis of sm all intestine with perforation and abscess without bleeding K57.00 [facility] [address] [place] [address] 11/16/2023 Kris Infante [facility] [address] [place] [address] 11/20/2023 Kris Infante [facility] [address] [place] [address] 12/05/2023 Kris Infante [facility] [address] [place] [address] 12/21/2023 Kris Infante [facility] [address] [place] [address] 01/04/2024 Kris Infante Assessments Encounter Date Diagnosis [...] protein powder until the meets with his pick up attendant next month. I did advise him to [...] protein powder until the meets with his pick up attendant next month. I did advise him to [...] protein powder until the meets with his pick up attendant next month. I did advise him to [...] Provider Name:Kris Infante , 04/24/2025 10:00:00 AM, [address] [place] [address], [address], [place], [address], Insurance Providers Payer Name Payer Address Payer Phone Subscriber Number Group Number Insured Name Patient Relationship to Insured Coverage Start Date Coverage End Date MEDICARE OF [place] [address] [place] [address] [id number] KRIS BAKER Self - patient is the insured [employer] ATTN CLAIMS [address] [place] [address] [id number] KRIS BAKER Self - patient is the insured Medical (General) History Medical History History ICD Code Kidney stones COPD Prostate cancer NIDDM Hypertension Denies [place],CVA,Lung disease,renal disease Negative colonoscopy > 10 years [...] MARSHAL-followed by vascular surgery, Dr. Soler, at [facility]. He felt this presented more of a chronic issue as opposed to an acute problem. Inflammation and small absce sses in the region of the small bowel seen on the CT scan during the workup for the abdominal pain in April of 2023. This was treated with IV and subsequent oral antibiotics at [facility]. There was the finding of multiple [...]
--- OUTSIDE RECORDS SUMMARY | 2024-10-03 09:21 | XMS_ITS | Patient Health Record ---
Author [facility] Address [address] [place] [address] Care Team Providers Care Liner Checker Name Role Phone Cristhian Garcia Primary Care Provider Unav ailable Black, Estela Unavailable [phone] Allergies No Known Allergies Results Component Value [...] Problem Acquired hammer toe of right foot (3492868198192783 ) Other hammer toe(s) (acquired), right foot (M20.41) Active confirmed Problem Acquired hammer toe of left foot (8656755310377897 ) Other hammer toe(s) (acquired), left foot (M20.42) Active confirmed Problem Polyneuropathy due to type 2 diabetes mellitus (101050163) Type 2 diabetes mellitus with diabetic polyneuropathy (E11.42) Active confirmed Vital Signs Blood pressure diastolic 70 mm Hg 09/05/2024 Height 5 ft 6 in in 09/05/2024 Blood pressure systolic 120 mm Hg 09/05/2024 Weight 145 lbs 09/05/2024 BMI 23.4 kg/m2 09/05/2024 Procedures Procedure Date Ordered Date Performed Result Body Sit e 02083-EETO SKIN LESIONS, 2 TO 4 03/07/2024 N/A 24428-XTSW NAIL(S) 03/07/2024 N/A 52772-DZEM SKIN LESIONS, 2 TO 4 09/05/2024 N/A 29905-QOTP NAIL(S) 09/05/2024 N/A Encounters Encounter Location Date Provider Diagnosis [facility] [address] [address] 03/07/2024 Estela Black Type 2 diabetes mellitus with diabetic polyneuropathy E11.42 and Xerosis of skin L85.3 [facility] [address] 09/05/2024 Estela Black Type 2 diabetes mellitus [...] Treatment Pending Test Test Name Order Date 83368-QNSL SKIN LESIONS, OVER 4 12/07/19 11 18979-UUJM SKIN LESIONS, OVER 4 06/26/19 13 35998-GMRX SKIN LESIONS, OVER 4 01/01/20 13 88432-BYID SKIN LESIONS, OVER 4 07/26/19 14 60757-MXRA SKIN LESIONS, OVER 4 01/16/20 14 83279-HPVY SKIN LESIONS, OVER 4 07/17/19 15 90591-WMYN SKIN LESIONS, 2 TO 4 01/15/20 15 68287-OJFB SKIN LESIONS, 2 TO 4 12/22/19 12 49518-LIXA SKIN LESIONS, 2 TO 4 06/20/19 12 29605-DGDC SKIN LESIONS, 2 TO 4 07/20/19 16 37027-VHTW SKIN LESIONS, 2 TO 4 01/18/20 16 51019-BSXN SKIN LESIONS, 2 TO 4 07/19/19 17 46021-PKMD SKIN LESIONS, 2 TO 4 01/24/20 17 46107-DLLO SKIN LESIONS, 2 TO 4 01/16/20 18 38363-QOJB SKIN LESIONS, 2 TO 4 08/21/19 19 72024-XDON SKIN LESIONS, 2 TO 4 02/25/19 20 49745-YBUO SKIN LESIONS, 2 TO 4 08/08/19 20 65601-MWGW SKIN LESIONS, 2 TO 4 02/03/20 20 91869-JFSZ SKIN LESIONS, 2 TO 4 07/21/19 21 84757-LWFF SKIN LESIONS, 2 TO 4 02/22/19 22 38098-RIRD SKIN LESIONS, 2 TO 4 08/31/19 22 29071-WIWI SKIN LESIONS, 2 TO 4 02/24/19 23 25362-WJPR SKIN LESIONS, 2 TO 4 08/26/19 23 78088-VCTJ SKIN LESIONS, 2 TO 4 03/02/19 24 99937-PING SKIN LESIONS, 2 TO 4 08/31/19 24 71442-LBDN SKIN LESIONS, 2 TO 4 03/07/19 25 31156-JJFT SKIN LESIONS, 2 TO 4 09/06/19 25 16702-INTS NAIL(S) 09/05/2024 73601-EPQN NAIL(S) 03/07/2024 14433-BQZR NAIL(S) 08/31/2023 34392-FIZD NAIL(S) 03/02/2023 23932-MRUL NAIL(S) 08/25/2022 42484-TSNE NAIL(S) 02/24/2022 95516-SUCU NAIL(S) 08/30/2021 11682-YBJQ NAIL(S) 02/22/2021 47540-QCJD NAIL(S) 07/20/2020 19547-RIXI NAIL(S) 02/03/2020 05966-JCIZ NAIL(S) 08/08/2019 20403-ALBL NAIL(S) 02/25/2019 54010-LYCM NAIL(S) 08/20/2018 72506-MPCV NAIL(S) 01/15/2018 17041-BQQF NAIL(S) 07/18/2016 29339-AOIH NAIL(S) 01/18/2016 56707-DQIQ NAIL(S) 07/20/2015 92853-ECTM NAIL(S) 12/22/2011 34420-WTKP NAIL(S) 12/06/2010 33382-UEVP NAIL(S) 06/20/2011 43224-WQYF NAIL(S) 06/25/2012 66940-GLDF NAIL(S) 12/31/2012 90705-QFJI NAIL(S) 01/14/2015 49456-GMIV NAIL(S) 07/16/2014 34147-IETN NAIL(S) 01/15/2014 04222-YPWZ NAIL(S) 07/25/2013 R9489-MWWPYAHW DYSTROPHIC NAILS ANY # Next Appt Details Provider Name:Estela Bell , 03/06/2025 09:00:00 AM, [address] [place], [address], Insurance Providers Payer Name Payer Address Payer Phone Subscriber Number Group Number Insured Name Patient Relationship to Insured Coverage Start Date Coverage End Date Medicare National [employer] [address] [facility] [address] [id number] Larry Pichardo Self - patient is the insured [employer] Blue Shield [address] [place] [address] [phone] [id number] Larry Pichardo Self - patient is the insured Medical (General) History Medical History History ICD Code mumps measles hypertension diabetic chicken pox cancer Cholesterol Surgical History Surgery Date(Month/Year) opened artery 08/08/2018 cataract surgery
--- OUTSIDE RECORDS SUMMARY | 2024-10-03 09:21 | XMS_ITS | Clinical Summary ---
Author Organization [facility] Address [address] [address] Phone Care Team Providers Care Systems Mechanic Name Role Phone Cristhian Durán NP Primary Care Provider [phone] Allergies No known active allergies Medications atorvastatin [...] [facility] [address] [phone] Hawk Aiken MD [address] [phone] Health Maintenance Due Date Last Done Comments [...] age to complete this topic Insurance Medicare [facility] Medicare [facility] Care Teams Systems Mechanic Relationship Specialty Start Date End Date Cristhian Durán NP [facility] [place] [address] PCP - General Nurse Practitioner 02/16/22
== END 2024-10-03 08:47 | disposition home or self-care (01) ==
LOC: HO.HMCC 08:27
PROVIDERS: PCP Nurse Practitioner Family; Visit Provider Nurse Practitioner Family
DX: E53.8 Deficiency of other specified B group vitamins (principal)

== ENCOUNTER → 2024-10-03 08:26 | Outpatient (BNVA) | payer MEDICARE, SELFPAY | PROVIDERS: PCP Nurse Practitioner Family; Visit Provider Nurse Practitioner Family | DX: E53.8 Deficiency of other specified B group vitamins (principal) | CPT/HCPCS: 96372; J3420 ==

== ENCOUNTER 2024-10-04 09:29 | Outpatient (AMB) | payer MEDICARE, SELFPAY ==
--- OUTSIDE RECORDS SUMMARY | 2024-10-04 09:33 | XMS_ITS | Clinical Summary ---
Author Organization [facility] Address [address] [address] Phone Care Team Providers Care Casino Supervisor Name Role Phone Cristhian Durán NP Primary Care Provider [phone] Allergies No known active allergies Medications atorvastatin [...] [facility] [address] [phone] Hawk Aiken MD [address] [phone] Health Maintenance Due Date Last Done Comments [...] age to complete this topic Insurance Medicare [facility] Medicare [facility] Care Teams Casino Supervisor Relationship Specialty Start Date End Date Cristhian Durán NP [facility] [place] [address] PCP - General Nurse Practitioner 02/16/22
--- OUTSIDE RECORDS SUMMARY | 2024-10-04 09:33 | XMS_ITS | Clinical Summary ---
Author Organization [facility] Address [address] [place] [address] Care Team Providers Care Piercing Artist Name Role Phone Unavailable Primary Care Provider [...]
--- OUTSIDE RECORDS SUMMARY | 2024-10-04 09:33 | XMS_ITS | Patient Health Record ---
[facility] Organization [facility] Address [address] [facility] [place] [address] Care Team Providers Care Senior Sas Programmer Name Role Phone Cristhian Garcia Primary Care Provider Unav ailable Black, Estela Unavailable [phone] Allergies No Known Allergies Results Component Value [...] Problem Acquired hammer toe of right foot (0585452381152086 ) Other hammer toe(s) (acquired), right foot (M20.41) Active confirmed Problem Acquired hammer toe of left foot (1961367308638896 ) Other hammer toe(s) (acquired), left foot (M20.42) Active confirmed Problem Polyneuropathy due to type 2 diabetes mellitus (896737333) Type 2 diabetes mellitus with diabetic polyneuropathy (E11.42) Active confirmed Vital Signs Blood pressure diastolic 70 mm Hg 09/05/2024 Height 5 ft 6 in in 09/05/2024 Blood pressure systolic 120 mm Hg 09/05/2024 Weight 145 lbs 09/05/2024 BMI 23.4 kg/m2 09/05/2024 Procedures Procedure Date Ordered Date Performed Result Body Sit e 66970-GYCD SKIN LESIONS, 2 TO 4 03/07/2024 N/A 76004-INHG NAIL(S) 03/07/2024 N/A 49474-FTVV SKIN LESIONS, 2 TO 4 09/05/2024 N/A 87530-BSPF NAIL(S) 09/05/2024 N/A Encounters Encounter Location Date Provider Diagnosis [facility] [address] [address] 03/07/2024 Estela Black Type 2 diabetes mellitus with diabetic polyneuropathy E11.42 and Xerosis of skin L85.[address] [facility] [address] 09/05/2024 Estela Black Type 2 diabetes mellitus [...] Treatment Pending Test Test Name Order Date 78707-DFGW SKIN LESIONS, OVER 4 12/07/19 11 66523-UBJT SKIN LESIONS, OVER 4 06/26/19 13 95421-QYJR SKIN LESIONS, OVER 4 01/01/20 13 13362-QRTN SKIN LESIONS, OVER 4 07/26/19 14 76975-ANFS SKIN LESIONS, OVER 4 01/16/20 14 49632-RERP SKIN LESIONS, OVER 4 07/17/19 15 25755-CDDL SKIN LESIONS, 2 TO 4 01/15/20 15 85972-TTAU SKIN LESIONS, 2 TO 4 12/22/19 12 19794-RZFC SKIN LESIONS, 2 TO 4 06/20/19 12 81099-QADF SKIN LESIONS, 2 TO 4 07/20/19 16 94512-WZBD SKIN LESIONS, 2 TO 4 01/18/20 16 85929-GUTQ SKIN LESIONS, 2 TO 4 07/19/19 17 34557-SLXD SKIN LESIONS, 2 TO 4 01/24/20 17 56657-IFMH SKIN LESIONS, 2 TO 4 01/16/20 18 16676-EGZU SKIN LESIONS, 2 TO 4 08/21/19 19 65456-KEQB SKIN LESIONS, 2 TO 4 02/25/19 20 74143-UYKM SKIN LESIONS, 2 TO 4 08/08/19 20 79264-NUBV SKIN LESIONS, 2 TO 4 02/03/20 20 45603-DWEW SKIN LESIONS, 2 TO 4 07/21/19 21 99397-OXLQ SKIN LESIONS, 2 TO 4 02/22/19 22 37502-JSSZ SKIN LESIONS, 2 TO 4 08/31/19 22 55455-IEPH SKIN LESIONS, 2 TO 4 02/24/19 23 97213-MQLK SKIN LESIONS, 2 TO 4 08/26/19 23 44462-LKRX SKIN LESIONS, 2 TO 4 03/02/19 24 16927-LRDI SKIN LESIONS, 2 TO 4 08/31/19 24 52318-IFFA SKIN LESIONS, 2 TO 4 03/07/19 25 54359-ZMXW SKIN LESIONS, 2 TO 4 09/06/19 25 01109-DHCN NAIL(S) 09/05/2024 17686-YMPX NAIL(S) 03/07/2024 11804-VTIK NAIL(S) 08/31/2023 54260-IKXP NAIL(S) 03/02/2023 12517-CKWD NAIL(S) 08/25/2022 97506-ULMT NAIL(S) 02/24/2022 63420-KNAR NAIL(S) 08/30/2021 72189-QQPF NAIL(S) 02/22/2021 02013-WLGW NAIL(S) 07/20/2020 22050-HKFZ NAIL(S) 02/03/2020 61064-VQIP NAIL(S) 08/08/2019 12436-HHUJ NAIL(S) 02/25/2019 08453-QLCQ NAIL(S) 08/20/2018 68268-NEBS NAIL(S) 01/15/2018 98983-NWAT NAIL(S) 07/18/2016 86482-SJYV NAIL(S) 01/18/2016 36107-CZWT NAIL(S) 07/20/2015 85020-HSGP NAIL(S) 12/22/2011 55595-PAPJ NAIL(S) 12/06/2010 54683-EONG NAIL(S) 06/20/2011 39503-GXJQ NAIL(S) 06/25/2012 21286-PXFF NAIL(S) 12/31/2012 39559-ZQHB NAIL(S) 01/14/2015 35954-DNDR NAIL(S) 07/16/2014 56603-VEQC NAIL(S) 01/15/2014 28604-MEES NAIL(S) 07/25/2013 F0652-VJMSQILW DYSTROPHIC NAILS ANY # Next Appt Details Provider Name:Estela Bell , 03/06/2025 09:00:00 AM, [address] [place], [address], Insurance Providers Payer Name Payer Address Payer Phone Subscriber Number Group Number Insured Name Patient Relationship to Insured Coverage Start Date Coverage End Date Medicare National [employer]t [employer] [address] [place] [address] [id number] Larry Pichardo Self - patient is the insured [employer] [address] [place] [address] [phone] [id number] Larry Pichardo Self - patient is the insured Medical (General) History Medical History History ICD Code mumps measles hypertension diabetic chicken pox cancer Cholesterol Surgical History Surgery Date(Month/Year) opened artery 08/08/2018 cataract surgery
--- OUTSIDE RECORDS SUMMARY | 2024-10-04 09:33 | XMS_ITS | Patient Health Record ---
Author Organization [facility] Address [address] [place] [address] Care Team Providers Care Sap Gatherer Name Role Phone TOMMY DURÁN Primary Care Provider Kris Tate [phone] Allergies No Known Allergies Results Component Value Reference Range Notes CT abdomen pelvis wo con Reviewed date:12/21/2023 04:34:52 PM Interpretation: Performing Lab: Notes/Report: [address] [address] [address] Scan Report Signed Patient: Kris Coleman MR#: [id number] : 1940 Acct:[id number] Age/Sex: 83 / M ADM Date: 12/15/23 Loc: .CT Attending Dr: Kris Infante MD Ordering Physician: Kris Infante MD Date of Service: 12/15/23 Procedure(s): CT abdomen pelvis wo IV con Accession Number(s): [id number] cc: Tommy Durán [facility]; Kris Infante MD EXAMINATION: CT ABDOMEN AND [...] OV> 12/15/23 1632 DD/ TD/TT: 12/15/23 1335 Metal Reclamation Kettle Tender: Complete Blood Count Auto Di ff Reviewed date:01/04/2024 06:22:26 PM Interpretation: Performing Lab:[facility], [address] [place] [address] Notes/Report: White Blood Count 4.0 4.8-10.8 X10*3/uL [...] Panel Reviewed date:01/04/2024 06:22:38 PM Interpretation: Performing Lab:[address] [address] Notes/Report: Bilirubin Total 0.5 0.0-1.0 mg/dL Bilirubin Direct 0.2 0.0-0.5 mg/dL Aspartate Amino Transferase 39 5-37 U/L Slight Hemolysis.Interpret result with caution. Alanine Aminotransferase 19 0-40 U/L Total Protein 6.2 6.5-8.0 g/dL Albumin Level 3.7 3.5-5.0 g/dL Alkaline Phosphatase 42 39-117 U/L Basic Metabolic Panel Reviewed date:01/04/2024 06:24:42 PM Interpretation: Performing Lab:[address] [address] Notes/Report: Sodium 142 135-145 mmol/L Potassium 4.5 [...] PROFILE Reviewed date:01/04/2024 12:39:25 PM Interpretation: Performing Lab:[address] [address] Notes/Report: Iron 83 45-160 mcg/dL Slight Hemolys is.Interpret result with caution. Total Iron Binding Capacity 356 228-428 mcg/d L Percent Iron Saturation 23 15-50 % Unsaturated Iron Binding 273 Ferritin Reviewed date:01/04/2024 06:24:51 PM Interpretation: Performing Lab:[address] [address] Notes/Report: Ferritin 53 20-250 ng/mL Free T4 (Free Thyroxine) Reviewed date:01/04/2024 06:24:58 PM Interpretation: Performing Lab:[address] [place] [address] Notes/Report: Free T4 (Free Thyroxine) 1.17 0.71-1.85 ng/dL TSH reflex Free T4 Reviewed date:01/04/2024 12:39:16 PM Interpretation: Performing Lab:[facility], [address] [place] [address] Notes/Report: TSH reflex Free T4 4.01 0.32-4.0 [...] as directed Orally as directed Active Nasal [place] 0.05 % 4 sprays (2 sprays in [...] W/U Status Risk Notes Problem Epigastric pain (19107969) Epigastric abdominal pain (R10.13) Active confirmed Problem Epigastric pain (66733676) Epigastric pain (R10.13) Active confirmed Problem Perforation and abscess of small intestine co-occurrent and due to diverticulitis (disorder) (185951182) Diverticulitis of small intestine with perforation and abscess without bleeding (K57.00) Active confirmed Problem Diverticulitis of small intestine (04568013) Diverticulitis of small intestine without perforation or abscess without bleeding (K57.12) Active confirmed Problem Nausea (448156124) Nausea (R11.0) Active confir med Problem Anorexia (99309929) Anorexia (R63.0) Active con firmed Problem Early satiety (259406621) Early satiety (R68.81) Active confirmed Problem Anemia (734127144) Anemia (D64.9) Active confir med Problem Gastritis (3159542) Gastritis (K29.70) Active confirmed Problem Chronic fatigue syndrome (76176266) Chronic fatigue (R53.82) Active confirmed Problem Gastroesophageal reflux disease (209185865) GERD (gastroesophageal reflux disease) (K21.9) Active confirmed Problem Loss of appetite (09353493) Decreased appetite (R63.0) Active confirmed Vital Signs Blood pressure diastolic 11 mm Hg 04/23/2024 Height 67 in 04/23/2024 Blood pressure systolic 111 mm Hg 04/23/2024 Weight 162 lbs 04/23/2024 BMI 25.37 kg/m2 04/23/2024 Encounters Encounter Location Date Provider [facility] [address] [place] [address] 10/24/2023 Kris Infante Diverticulitis of sm all intestine with perforation and abscess without bleeding K57.00 ; Anemia D64.9 and Chronic fatigue R53.82 [facility] [address] [place] [address] 04/23/2024 Kris Infante Diverticulitis of sm all intestine with perforation and abscess without bleeding K57.00 [facility] [address] [place] [address] 11/16/2023 Kris Infante [facility] [address] [place] [address] 11/20/2023 Kris Infante [facility] [address] [place] [address] 12/05/2023 Kris Infante [facility] [address] [place] [address] 12/21/2023 Kris Infante [facility] [address] [place] [address] 01/04/2024 Kris Infante Assessments Encounter Date Diagnosis [...] protein powder until the meets with his rivet tosser next month. I did advise him to [...] protein powder until the meets with his rivet tosser next month. I did advise him to [...] protein powder until the meets with his rivet tosser next month. I did advise him to [...] Provider Name:Kris Infante , 04/24/2025 10:00:00 AM, [address] [place] [address], [address], [place], [address], Insurance Providers Payer Name Payer Address Payer Phone Subscriber Number Group Number Insured Name Patient Relationship to Insured Coverage Start Date Coverage End Date MEDICARE OF [place] [address] [place] [address] [id number] KRIS BAKER Self - patient is the insured [employer] CLAIMS [address] [place] [address] [id number] KRIS BAKER Self - patient is the [...] MARSHAL-followed by vascular surgery, Dr. Soler, at [facility]. He felt this presented more of a chronic issue as opposed to an acute problem. Inflammation and small absce sses in the region of the small bowel seen on the CT scan during the workup for the abdominal pain in April of 2023. This was treated with IV and subsequent oral antibiotics at [facility]. There was the finding of multiple small [...]
--- NOTE | 2024-10-04 09:45 | MHC.OFFVIS ---
Intake Visit Reasons: 1y/PSA Intake Note: Patient presents today for: 1yr follow up Urology Med: None Blood Thinner: Aspirin labs done 09/30/24: psa 0.65 Talent Development Analyst Required: No Accompanied by: Spouse Allergies No Known Allergies (No Known Allergies*) Allergy (Verified 10/04/24 09:46) HPI Comments Details: Larry is a pleasant male. He is a patient of Dr. Ayon. He seen for the following urologic conditions - prostate cancer Yearly follow-up PSA well-controlled Currently 20 years Follow p.r.n. Prostate cancer Prior therapy with external beam radiation in 2004 PSA - 10/04 0.9, 04/07 0.7, 04/08 1.3, 10/06 0.8, 10/07 0.6 Associated comorbidities diabetes Recently found to have elevated BUN Imaging shows no abnormality of urinary tract PFSH Medical History Superior mesenteric artery syndrome Elevated serum creatinine Encounter for annual wellness visit (AWV) in Medicare patient Screening PSA (prostate specific antigen) Plantar callus CKD (chronic kidney disease) stage 3, GFR 30-59 ml/min Acquired hammertoes of both feet Type 2 diabetes mellitus without complication, without long-term current use of insulin Eczema Hearing loss Prostate CA HTN (hypertension) PVD (peripheral vascular disease) Carotid artery stenosis COPD (chronic obstructive pulmonary disease) Dyslipidemia Surgical History History of left-sided carotid endarterectomy Status post aortography with runoff History of atherectomy History of angioplasty H/O colonoscopy with polypectomy History of endarterectomy History of cataract surgery History of cataract surgery Family History Father Medical history non-contributory Mother Medical history non-contributory Son No problems noted. Daughter No problems noted. Daughter No problems noted. Social History Housing: House Alcohol intake: current Patient Tobacco Use Status: Former Tobacco user Years Smoked: quit 25 years ago e-Cigarette/Vaping Use: Never Used Second Hand Smoke Exposure: No service: Yes Current occupational status: retired Cognitive needs: No Hearing needs: No Vision needs: No Review of Systems Const Denies chills and Denies fever(s) Card Reports no additional complaints and Denies syncope Resp Denies cough GI Denies abdominal pain and Denies heartburn Reports as per HPI and Denies change in libido Neuro Denies syncope Psych Denies change in libido Endo Denies change in libido Physical Exam Const General: cooperative, healthy appearing, comfortable and no acute distress Orientation/consciousness: patient oriented x3 HEENT Face and sinus: Yes normal facial exam Mouth: moist mucous membranes Neck Neck: Yes normal visual inspection, Yes full ROM and Yes trachea midline Chest Chest palpation & inspection: normal inspection of the chest Resp Effort & Inspection: normal respiratory effort, able to speak in complete sentences and no respiratory distress GI Inspection: Yes normal to inspection Back/Spine/Pelvis Cervical Spine: normal cervical lordosis Thoracic/Lumbar Spine: thoracic and lumbar spine normal to inspection Skin General skin exam: no rashes or lesions noted Neuro General: patient oriented x3, gait normal, tone normal and moves all extremities Extrem General: Yes normal to inspection and Yes capillary refill normal Assessment & Plan Assessment & Plan (1) Prostate CA: Comment: EXBRT 2004 Code(s): C61 - Malignant neoplasm of prostate Category: Medical Plan P.r.n. follow-up Patient Instructions: This note is constructed using voice recognition software. While every effort has been made to ensure accuracy equipment maintenance tech errors may have been included. Imaging studies, laboratory and physical exam results were discussed and reviewed in detail. No major barriers to patient understanding were identified. An opportunity to ask questions regarding the treatment plan was provided. All questions were answered. The patient expressed understanding and agreement with the above treatment plan. The patient is aware they should contact our office by phone for worsening of their current condition or the appearance of new urologic symptoms. Compliance is encouraged with any medications and followup testing that is ordered. It is a privilege to participate in the urologic care of your patient. If you have any questions or concerns regarding treatment for the above conditions, or other urologic issues, please do not hesitate to contact me. The office telephone contact is [phone]. Sincerely, Dr Hiren Reyes MD, R[facility] - Urology Compassionate Specialist Care for the Genitourinary System Coding Level of Care Code Est Pt Level 4 (67771) Complex EM visit Add On G2661 Diagnoses Prostate CA C61
== END 2024-10-04 10:03 | disposition home or self-care (01) ==
LOC: HO.HUSH 09:30
PROVIDERS: PCP Nurse Practitioner Family; Visit Provider Urology
DX: C61 Malignant neoplasm of prostate (principal)
CPT/HCPCS: 99214; G2211

== ENCOUNTER → 2024-10-04 09:29 | Outpatient (BNVA) | payer MEDICARE, SELFPAY | PROVIDERS: PCP Nurse Practitioner Family; Visit Provider Urology | DX: Z08 Encounter for follow-up examination after completed treatment for malignant neoplasm (principal); Z85.46 Personal history of malignant neoplasm of prostate | CPT/HCPCS: 99212 ==

== ENCOUNTER 2024-10-08 09:27 | Outpatient (AMB) | payer MEDICARE, SELFPAY ==
[2024-10-08 09:33] VITALS: BP 128/54; PULSE 74; O2SAT 95; BMI 25.2
--- NOTE | 2024-10-08 09:33 | A.OFFVIS_ITS ---
Vital Signs 10/08/24 09:33 Height 5 ft 5 in Weight 151 lb 10.848 oz BMI 25.2 BP 128/54 L Blood Pressure Location Rt brachial Position Sitting Pulse 74 Pulse Source Pulse Oximeter Pulse Oximetry (%) 95 Oxygen Delivery Method Room Air Intake Visit Reasons: Adrenal nodule Intake Note: Patient present today for Adrenal Nodule follow up. Plastic Tubing Insulation Supervisor Required: No Accompanied by: Spouse Allergies No Known Allergies (No Known Allergies*) Allergy (Verified 10/08/24 09:34) Medication List - Last Reconciled 10/08/24 by Larry Moy MD aspirin 81 mg PO DAILY atorvastatin 40 mg PO BEDTIME blood sugar diagnostic test BS once a day blood sugar diagnostic ([employer] Ultra Test strips) Use to check blood sugar twice a day cholecalciferol (vitamin D3) 25 mcg PO DAILY cyanocobalamin (vitamin B-12) intramuscularly QMONTHLY; Q monthly 30 days dexamethasone 1 mg PO ONCE diltiazem HCl CD 240 mg PO DAILY fenofibrate 160 mg PO DAILY 90 days fluticasone propionate 50 mcg/actuation 1 spray intranasal DAILY magnesium oxide 250 mg PO metformin ER 500 mg PO BID 90 days methylcellulose (laxative) (Citrucel) 500 mg PO DAILY PRN omeprazole 40 mg PO QAM ondansetron HCl 4 mg PO DAILY 90 days pioglitazone 30 mg PO DAILY trazodone 50 mg PO DAILY HPI Comments Details: The patient is an 84-year-old male presenting with adrenal nodules. Referred for evaluation after incidental findings reported in a CT scan in 2022, which identified mild hypertrophy on the left adrenal gland. Prior imaging from 2009 and 2013 did not mention adrenal abnormalities. The patient denies experiencing spells related to adrenal hormones, such as sweating, headaches, or palpitations. There are no symptoms reported suggesting Nya syndrome or hormone-related weight changes. He has managed hypertension with Deltiazem and reports occasional lightheadedness. Significant past medical history includes prostate cancer. He denies tuberculosis or recurrent infections. 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 Had CT abdomen/pelvis 05/31/24 for which revealed ADRENAL GLANDS: There is a 1.5 cm adrenal nodule which measures 19.9 HU on the precontrast examination, 72.3 HU on the immediate postcontrast series, and 37.6 HU on the delayed images. This calculates to a 48.0% relative washout and a 66.2% absolute washout, consistent with an adenoma. There is a 1.8 cm left adrenal nodule which measures 14.4 HU on the unenhanced examination, 67.1 HU on the immediate postcontrast series, and 39.9 HU on the delayed images. This calculates to a relative washout of 40.5% and absolute washout of 51.6%. These findings are highly suggestive of an adenoma.. Prior CT dated []revealed. 1.5 cm right adrenal nodule, with washout characteristics consistent with an adenoma. 1.8 cm left adrenal nodule, with washout characteristics highly suggestive of an adenoma. Denies history of spells with headache, flushing, diaphoresis, abdominal pain or diarrhea. Denies any weight gain, frequent infections, easy bruisability, development of violaceous striae. History of HTN, controlled on 1 agents. No history of anticoagulant use. Denies any weight loss, orthostatic symptoms, hypoglycemia. history of prostate CA but no TB. Imaging: Labs: 24 hour urine for metanephrines and normetanephrines were normal. However, cortisol after dexamethasone was abnormal but it is not clear with the patient took the dexamethasone The patient is an 84-year-old male presenting with the evaluation of potential C ushing syndrome due to abnormal cortisol levels. The patient underwent a dexamethasone suppression test, which showed elevated cortisol levels, suggesting the possibility of Nya syndrome. The patient has a history of diabetes mellitus and hypertension, which could be exacerbated by elevated cortisol levels. The patient reports no overt symptoms of Nya syndrome, such as weight gain, facial puffiness, or purple striae, but acknowledges thin skin and bruising, which could be related. There is a family history of similar skin issues, but it is unclear if they are related to the current condition. The patient has not undergone a bone density test to assess for osteoporosis, which is a concern given the potential diagnosis of Lyman syndrome. [facility] Medical History Superior mesenteric artery syndrome Elevated serum creatinine Encounter for annual wellness visit (AWV) in Medicare patient Screening PSA (prostate specific antigen) Plantar callus CKD (chronic kidney disease) stage 3, GFR 30-59 ml/min Acquired hammertoes of both feet Type 2 diabetes mellitus without complication, without long-term current use of insulin Eczema Hearing loss Prostate CA HTN (hypertension) PVD (peripheral vascular disease) Carotid artery stenosis COPD (chronic obstructive pulmonary disease) Dyslipidemia Surgical History History of left-sided carotid endarterectomy Status post aortography with runoff History of atherectomy History of angioplasty H/O colonoscopy with polypectomy History of endarterectomy History of cataract surgery History of cataract surgery Family History Father Medical history non-contributory Mother Medical history non-contributory Son No problems noted. Daughter No problems noted. Daughter No problems noted. Social History Housing: House Alcohol intake: current Patient Tobacco Use Status: Former Tobacco user Years Smoked: quit 25 years ago e-Cigarette/Vaping Use: Never Used Second Hand Smoke Exposure: No service: Yes Current occupational status: retired Cognitive needs: No Hearing needs: No Vision needs: No Physical Exam Vital Signs: Last Vital Signs Pulse 74 10/08/24 09:33 BP 128/54 L 10/08/24 09:33 Pulse Ox 95 10/08/24 09:33 Oxygen Delivery Method Room Air 10/08/24 09:33 BMI result Body Mass Index 25.2 Assessment & Plan Assessment & Plan (1) Adrenal nodule: Code(s): E27.8 - Other specified disorders of adrenal gland Category: Medical Plan: This is an 84-year-old white male with a history of bilateral adrenal nodules with characteristics of both nodules appear to be benign based on adrenal washout protocol. 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 Further testing with an 8 mg dexamethasone suppression test and a midnight salivary cortisol test is planned. Referral to a specialized center in [place] is considered if results remain abnormal. 2. Diabetes mellitus Management may be impacted by elevated cortisol levels. If Lyman syndrome is confirmed and treated, it may improve glycemic control. 3. Hypertension Hypertension may be exacerbated by elevated cortisol levels. Treatment of Cu shing syndrome could potentially improve blood pressure control. I discussed with the patient the possibility of Lyman syndrome due to elevated cortisol levels and its potential impact on diabetes and hypertension. We talked about the need for further testing, including an 8 mg dexamethasone suppression test and a midnight salivary cortisol test. I explained the potential need for referral to a specialized center in [place] if the results remain abnormal. We also discussed the importance of assessing bone density to evaluate for osteoporosis if Nya's is confirmed . The patient was informed about the potential benefits of treating Lyman syndrome, including improved control of diabetes and hypertension. - Take the prescribed dexamethasone at 11 PM and have blood drawn at 8 AM the . - Complete the midnight salivary cortisol test as instructed. - Follow up in four weeks after completing the tests. The patient had an opportunity to ask questions regarding treatment plan. The patient expressed understanding and agreement with the above treatment plan. The patient is aware they should contact our office by phone for worsening glucose readings or for any low blood sugars which may warrant a change in diabetes medication. Compliance is encouraged with medications and any followup testing/consults which may have been ordered. Patient was informed and verbally consented to the use of an ambient scribe for clinic note documentation during this visit. The patient had an opportunity to ask questions regarding treatment plan. The patient expressed understanding and agreement with the above treatment plan. Patient was informed and verbally consented to the use of an ambient scribe for clinic note documentation during this visit. Orders: Orders Cortisol Random 1 Week E27.8 - Other specified disorders of adrenal gland Saliva Cortisol Today E27.8 - Other specified disorders of adrenal gland Dexamethasone 1 Week E27.8 - Other specified disorders of adrenal gland Medications: New dexamethasone 8 mg (2 x 4 mg) PO ONCE 2 tabs 0RF Coding Level of Care Code Est Pt Level 3 (53405) Diagnoses Adrenal nodule E27.8
--- OUTSIDE RECORDS SUMMARY | 2024-10-08 10:02 | XMS_ITS | Patient Health Record ---
Author Organization [facility] Address [address] [place] [address] Care Team Providers Care Structural Worker Name Role Phone TOMMY DURÁN Primary Care Provider Kris Tate [phone] Allergies No Known Allergies Results Component Value Reference Range Notes CT abdomen pelvis wo con Reviewed date:12/21/2023 04:34:52 PM Interpretation: Performing Lab: Notes/Report: [address] [address] [address] Scan Report Signed Patient: Kris Coleman MR#: [id number] : 1940 Acct:[id number] Age/Sex: 83 / M ADM Date: 12/15/23 Loc: .CT Attending Dr: Kris Infante MD Ordering Physician: Kris Infante MD Date of Service: 12/15/23 Procedure(s): CT abdomen pelvis wo IV con Accession Number(s): [id number] cc: Tommy Durán [facility]; Kris Infante MD EXAMINATION: CT [...] OV> 12/15/23 1632 DD/ TD/TT: 12/15/23 1335 Underground Mine Superintendent: Complete Blood Count Auto Di ff Reviewed date:01/04/2024 06:22:26 PM Interpretation: Performing Lab:[facility], [address] [place] [address] Notes/Report: White Blood Count 4.0 4.8-10.8 X10*3/uL [...] Panel Reviewed date:01/04/2024 06:22:38 PM Interpretation: Performing Lab:[address] [address] Notes/Report: Bilirubin Total 0.5 0.0-1.0 mg/dL Bilirubin Direct 0.2 0.0-0.5 mg/dL Aspartate Amino Transferase 39 5-37 U/L Slight Hemolysis.Interpret result with caution. Alanine Aminotransferase 19 0-40 U/L Total Protein 6.2 6.5-8.0 g/dL Albumin Level 3.7 3.5-5.0 g/dL Alkaline Phosphatase 42 39-117 U/L Basic Metabolic Panel Reviewed date:01/04/2024 06:24:42 PM Interpretation: Performing Lab:[address] [address] Notes/Report: Sodium 142 135-145 mmol/L Potassium 4.5 [...] PROFILE Reviewed date:01/04/2024 12:39:25 PM Interpretation: Performing Lab:[address] [address] Notes/Report: Iron 83 45-160 mcg/dL Slight Hemolys is.Interpret result with caution. Total Iron Binding Capacity 356 228-428 mcg/d L Percent Iron Saturation 23 15-50 % Unsaturated Iron Binding 273 Ferritin Reviewed date:01/04/2024 06:24:51 PM Interpretation: Performing Lab:[address] [address] Notes/Report: Ferritin 53 20-250 ng/mL Free T4 (Free Thyroxine) Reviewed date:01/04/2024 06:24:58 PM Interpretation: Performing Lab:[address] [place] [address] Notes/Report: Free T4 (Free Thyroxine) 1.17 0.71-1.85 ng/dL TSH reflex Free T4 Reviewed date:01/04/2024 12:39:16 PM Interpretation: Performing Lab:[facility], [address] [place] [address] Notes/Report: TSH reflex Free T4 4.01 0.32-4.0 uIU/mL Reason For Referral No Information Medications Medication SIG (Take, Route, Frequency, Duration) Notes Start Date End Date Status Magnesium 200 MG 1 tablet with a meal Orally Twice a day Active Omeprazole 40 MG TAKE 1 CAPSULE BY MOUTH EVERY MORNING Orally Once a day for 30 days Active Vitamin D3 Active Readi-Cat 2 2 [...] as directed Orally as directed Active Nasal [place] 0.05 % 4 sprays (2 sprays in [...] W/U Status Risk Notes Problem Epigastric pain (42343293) Epigastric abdominal pain (R10.13) Active confirmed Problem Epigastric pain (36739067) Epigastric pain (R10.13) Active confirmed Problem Perforation and abscess of small intestine co-occurrent and due to diverticulitis (disorder) (567055879) Diverticulitis of small intestine with perforation and abscess without bleeding (K57.00) Active confirmed Problem Diverticulitis of small intestine (33151004) Diverticulitis of small intestine without perforation or abscess without bleeding (K57.12) Active confirmed Problem Nausea (434535251) Nausea (R11.0) Active confir med Problem Anorexia (76987089) Anorexia (R63.0) Active con firmed Problem Early satiety (527319912) Early satiety (R68.81) Active confirmed Problem Anemia (013503299) Anemia (D64.9) Active confir med Problem Gastritis (8067895) Gastritis (K29.70) Active confirmed Problem Chronic fatigue (R53.82) Active confirmed Problem Gastroesophageal reflux disease (368496575) GERD (gastroesophageal reflux disease) (K21.9) Active confirmed Problem Loss of appetite (30275866) Decreased appetite (R63.0) Active confirmed Vital Signs Blood pressure diastolic 11 mm Hg 04/23/2024 Height 67 in 04/23/2024 Blood pressure systolic 111 mm Hg 04/23/2024 Weight 162 lbs 04/23/2024 BMI 25.37 kg/m2 04/23/2024 Encounters Encounter Location Date Provider Diagnosis [facility] [address] [place] [address] 10/24/2023 Kris Infante Diverticulitis of sm all intestine with perforation and abscess without bleeding K57.00 ; Anemia D64.9 and Chronic fatigue R53.82 [facility] [address] [place] [address] 04/23/2024 Kris Infante Diverticulitis of sm all intestine with perforation and abscess without bleeding K57.00 [facility] [address] [place] [address] 11/16/2023 Kris Infante [facility] [address] [place] [address] 11/20/2023 Kris Infante [facility] [address] [place], [place] [address], [place] [address] 12/05/2023 Kris Infante [facility] [address] [place] [address] [address] 12/21/2023 Kris Infante [facility] [address] [place] [facility] [address] 01/04/2024 Kris Infante Assessments Encounter Date Diagnosis [...] protein powder until the meets with his lan/wan engineer next month. I did advise him to [...] protein powder until the meets with his lan/wan engineer next month. I did advise him to [...] protein powder until the meets with his lan/wan engineer next month. I did advise him to [...] Name:Kris Jose Infante , 04/24/2025 10:00:00 AM, [address] [place] [address], [address], [place], [address], Insurance Providers Payer Name Payer Address Payer Phone Subscriber Number Group Number Insured Name Patient Relationship to Insured Coverage Start Date Coverage End Date MEDICARE OF [place] [address] [place] [address] [id number] KRIS BAKER Self - patient is the insured [employer] ATT[employer] CLAIMS [address] [place] [address] [id number] KRIS BAKER Self - patient is the insured Medical (General) History Medical History History ICD Code Kidney stones COPD Prostate cancer NIDDM Hypertension Denies OH,CVA,Lung disease,renal disease Negative colonoscopy > 10 years [...]
--- OUTSIDE RECORDS SUMMARY | 2024-10-08 10:02 | XMS_ITS | Clinical Summary ---
Author Organization [facility] Address [address] [place] [address] Care Team Providers Care Extracorporeal Technician Name Role Phone Unavailable Primary Care Provider [...]
--- OUTSIDE RECORDS SUMMARY | 2024-10-08 10:02 | XMS_ITS | Patient Health Record ---
[facility] Address [address] [address] [place] [address] Care Team Providers Care Pattern Chart Writer Name Role Phone Cristhian Garcia Primary Care Provider Unav ailable Black, Estela Unavailable [phone] Allergies No Known Allergies Results Component Value [...] Problem Acquired hammer toe of right foot (5841856735548512 ) Other hammer toe(s) (acquired), right foot (M20.41) Active confirmed Problem Acquired hammer toe of left foot (0791696033791709 ) Other hammer toe(s) (acquired), left foot (M20.42) Active confirmed Problem Polyneuropathy due to type 2 diabetes mellitus (216212229) Type 2 diabetes mellitus with diabetic polyneuropathy (E11.42) Active confirmed Vital Signs Blood pressure diastolic 70 mm Hg 09/05/2024 Height 5 ft 6 in in 09/05/2024 Blood pressure systolic 120 mm Hg 09/05/2024 Weight 145 lbs 09/05/2024 BMI 23.4 kg/m2 09/05/2024 Procedures Procedure Date Ordered Date Performed Result Body Sit e 58758-JLUB SKIN LESIONS, 2 TO 4 03/07/2024 N/A 97843-VWBP NAIL(S) 03/07/2024 N/A 39985-FEZN SKIN LESIONS, 2 TO 4 09/05/2024 N/A 58557-GTJR NAIL(S) 09/05/2024 N/A Encounters Encounter Location Date Provider Diagnosis [facility] [address] [address] 03/07/2024 Estela Black Type 2 diabetes mellitus with diabetic polyneuropathy E11.42 and Xerosis of skin L85.3 [facility] [address] 09/05/2024 Estela Black Type 2 diabetes mellitus [...] Treatment Pending Test Test Name Order Date 45418-VXAU SKIN LESIONS, OVER 4 12/07/19 11 26844-ROJN SKIN LESIONS, OVER 4 06/26/19 13 22051-DAEF SKIN LESIONS, OVER 4 01/01/20 13 82276-CFYB SKIN LESIONS, OVER 4 07/26/19 14 64475-MAQD SKIN LESIONS, OVER 4 01/16/20 14 27727-TGAP SKIN LESIONS, OVER 4 07/17/19 15 50772-GVHH SKIN LESIONS, 2 TO 4 01/15/20 15 48960-BBWD SKIN LESIONS, 2 TO 4 12/22/19 12 82474-BOJL SKIN LESIONS, 2 TO 4 06/20/19 12 56677-KXZW SKIN LESIONS, 2 TO 4 07/20/19 16 80837-WEPJ SKIN LESIONS, 2 TO 4 01/18/20 16 55483-DMHX SKIN LESIONS, 2 TO 4 07/19/19 17 51795-YXXV SKIN LESIONS, 2 TO 4 01/24/20 17 73514-DLLW SKIN LESIONS, 2 TO 4 01/16/20 18 48960-IMSS SKIN LESIONS, 2 TO 4 08/21/19 19 37822-YZNM SKIN LESIONS, 2 TO 4 02/25/19 20 76739-HSIC SKIN LESIONS, 2 TO 4 08/08/19 20 06201-HDZJ SKIN LESIONS, 2 TO 4 02/03/20 20 72332-JDXY SKIN LESIONS, 2 TO 4 07/21/19 21 43453-SSUQ SKIN LESIONS, 2 TO 4 02/22/19 22 49391-FCMO SKIN LESIONS, 2 TO 4 08/31/19 22 56628-ZZRI SKIN LESIONS, 2 TO 4 02/24/19 23 60969-IOQD SKIN LESIONS, 2 TO 4 08/26/19 23 92257-SOMW SKIN LESIONS, 2 TO 4 03/02/19 24 40938-WMXS SKIN LESIONS, 2 TO 4 08/31/19 24 95161-LWAD SKIN LESIONS, 2 TO 4 03/07/19 25 40219-LPQO SKIN LESIONS, 2 TO 4 09/06/19 25 96908-YUPA NAIL(S) 09/05/2024 69663-QYDX NAIL(S) 03/07/2024 68952-BHIT NAIL(S) 08/31/2023 14993-CXZP NAIL(S) 03/02/2023 98330-QNRI NAIL(S) 08/25/2022 47860-LAQC NAIL(S) 02/24/2022 56174-HTDA NAIL(S) 08/30/2021 35080-TEUE NAIL(S) 02/22/2021 52646-UNMJ NAIL(S) 07/20/2020 39727-UMCV NAIL(S) 02/03/2020 49842-EVBV NAIL(S) 08/08/2019 31256-NHUY NAIL(S) 02/25/2019 34828-GADC NAIL(S) 08/20/2018 05244-FEWZ NAIL(S) 01/15/2018 85511-BZTL NAIL(S) 07/18/2016 21975-FWPW NAIL(S) 01/18/2016 25410-HOUX NAIL(S) 07/20/2015 23852-GZKE NAIL(S) 12/22/2011 56298-ECJJ NAIL(S) 12/06/2010 86901-HKOS NAIL(S) 06/20/2011 06536-FJAG NAIL(S) 06/25/2012 98105-RZTW NAIL(S) 12/31/2012 28145-URBC NAIL(S) 01/14/2015 80618-RZRS NAIL(S) 07/16/2014 53194-DGDL NAIL(S) 01/15/2014 30681-NLFC NAIL(S) 07/25/2013 D0140-XIHAMGVH DYSTROPHIC NAILS ANY # Next Appt Details Provider Name:Estela Bell , 03/06/2025 09:00:00 AM, [address] [place], [address], Insurance Providers Payer Name Payer Address Payer Phone Subscriber Number Group Number Insured Name Patient Relationship to Insured Coverage Start Date Coverage End Date Medicare National [employer] [address] [place] [address] [id number] Larry Pichardo Self - patient is the insured [employer] Blue [employer] [address] [place] [address] [id number] Larry Pichardo Self - patient is the insured Medical (General) History Medical History History ICD Code mumps measles hypertension diabetic chicken pox cancer Cholesterol Surgical History Surgery Date(Month/Year) opened artery 08/08/2018 cataract surgery
--- OUTSIDE RECORDS SUMMARY | 2024-10-08 10:03 | XMS_ITS | Clinical Summary ---
Author Organization [facility] Address [address] [address] Phone Care Team Providers Care Policy And Planning Manager Name Role Phone Cristhian Durán NP Primary Care Provider [phone] Allergies No known active allergies Medications atorvastatin [...] [facility] [address] [phone] Hawk Aiken MD [address] [phone] Health Maintenance Due Date Last Done Comments [...] age to complete this topic Insurance Medicare [facility] Care Teams Policy And Planning Manager Relationship Specialty Start Date End Date Cristhian Durán NP [facility] [place] [address] PCP - General Nurse Practitioner 02/16/22
== END 2024-10-08 10:05 | disposition home or self-care (01) ==
LOC: HO.ENCR 09:28
PROVIDERS: PCP Nurse Practitioner Family; Visit Provider Internal Medicine Endocrinology, Diabetes & Metabolism
DX: E27.8 Other specified disorders of adrenal gland (principal)
CPT/HCPCS: 99213

== ENCOUNTER → 2024-10-08 09:27 | Outpatient (BNVA) | payer MEDICARE, SELFPAY | PROVIDERS: PCP Nurse Practitioner Family; Visit Provider Internal Medicine Endocrinology, Diabetes & Metabolism | DX: E27.8 Other specified disorders of adrenal gland (principal) | CPT/HCPCS: 99212 ==

== ENCOUNTER 2024-10-20 19:42 | Outpatient (REF) | payer MEDICARE, SELFPAY ==
[2024-11-01 03:48] LABS: Saliva Cortisol 0.09 mcg/dL
== END 2024-10-20 19:43 | disposition home or self-care (01) ==
LOC: HO.LNP 19:42
PROVIDERS: Visit Provider Internal Medicine Endocrinology, Diabetes & Metabolism
DX: E27.8 Other specified disorders of adrenal gland (principal)
CPT/HCPCS: 82530

== ENCOUNTER 2024-10-21 08:08 | Outpatient (REF) | payer MEDICARE, SELFPAY | END 2024-10-21 08:09 | disposition home or self-care (01) | LOC: HO.LAB 08:08 | PROVIDERS: Absent Provider Internal Medicine Endocrinology, Diabetes & Metabolism; PCP Nurse Practitioner Family; Visit Provider Nurse Practitioner Family | DX: Z00.00 Encounter for general adult medical examination without abnormal findings (principal); E11.9 Type 2 diabetes mellitus without complications; E53.8 Deficiency of other specified B group vitamins; E55.9 Vitamin D deficiency, unspecified; R68.89 Other general symptoms and signs; R74.8 Abnormal levels of other serum enzymes; Z11.59 Encounter for screening for other viral diseases; E27.8 Other specified disorders of adrenal gland | CPT/HCPCS: 80299; 82533; 83036; 96127; 99212 ==

== ENCOUNTER 2024-10-21 08:54 | Outpatient (AMB) | payer MEDICARE, SELFPAY ==
[2024-10-21 09:11] VITALS: BP 138/70; PULSE 53; RESP 16; O2SAT 97; BMI 25.0
--- NOTE | 2024-10-21 09:11 | A.OFFPC_ITS ---
Vital Signs 10/21/24 09:11 Height 5 ft 5 in Intake Visit Reasons: SWV G0439 Allergies No Known Allergies (No Known Allergies*) Allergy (Verified 10/08/24 09:34) Tobacco use date assessed: 04/09/24 Dental Screening Dental Screen Date: 03/06/24 [facility] Medical History (Reviewed 07/16/24 @ 12:06 by Cristhian Durán, [facility]) Superior mesenteric artery syndrome Elevated serum creatinine Encounter for annual wellness visit (AWV) in Medicare patient Screening PSA (prostate specific antigen) Plantar callus CKD (chronic kidney disease) stage 3, GFR 30-59 ml/min Acquired hammertoes of both feet Type 2 diabetes mellitus without complication, without long-term current use of insulin Eczema Hearing loss Prostate CA HTN (hypertension) PVD (peripheral vascular disease) Carotid artery stenosis COPD (chronic obstructive pulmonary disease) Dyslipidemia Surgical History History of left-sided carotid endarterectomy Status post aortography with runoff History of atherectomy History of angioplasty H/O colonoscopy with polypectomy History of endarterectomy History of cataract surgery History of cataract surgery Family History Father Medical history non-contributory Mother Medical history non-contributory Son No problems noted. Daughter No problems noted. Daughter No problems noted. Social History Housing: House Alcohol intake: current Patient Tobacco Use Status: Former Tobacco user Years Smoked: quit 25 years ago e-Cigarette/Vaping Use: Never Used Second Hand Smoke Exposure: No service: Yes Current occupational status: retired Cognitive needs: No Hearing needs: No Vision needs: No Questionnaire Thrive Questionnaire Date Thrive assessed: 03/06/24 ELISABET-7 AMB Questionnaire ELISABET-7 Date ELISABET - 7 assessed: 04/09/24 Source: Developed by Drs. Larry Ohara, Luci Anglin, Charlie Lees and colleagues, with an educational deanna from [employer]. Physical exam (Primary Care) Tobacco/Smoking Status: Tobacco use Status Tobacco use date assessed 04/09/24 07/16/24 11:31 Patient Tobacco Use Status Former Tobacco user 07/16/24 11:31 e-Cigarette/Vaping Use Never Used 07/16/24 11:31 Thrive Assessment: Date of Thrive Assessment Date Thrive assessed 03/06/24 10/21/24 08:54 Coding
--- NOTE | 2024-10-21 09:12 | AM.OFFVISMDC ---
Intake Vital Signs 10/21/24 09:11 Height 5 ft 5 in Weight 150 lb BMI 25.0 BP 138/70 Blood Pressure Location Lt brachial Position Sitting Respiration 16 Pulse 53 Pulse Source Pulse Oximeter Pulse Oximetry (%) 97 Oxygen Delivery Method Room Air Intake Visit Reasons: [facility] G0439 Integrated Campaign Manager Required: No Accompanied by: Spouse Allergies No Known Allergies (No Known Allergies*) Allergy (Verified 10/08/24 09:34) Medication List - Last Reconciled 10/21/24 by RY Morales- aspirin 81 mg PO DAILY atorvastatin 40 mg PO BEDTIME blood sugar diagnostic test BS once a day blood sugar diagnostic (FraudMetrix Ultra Test strips) Use to check blood sugar twice a day cholecalciferol (vitamin D3) 25 mcg PO DAILY cyanocobalamin (vitamin B-12) intramuscularly QMONTHLY; Q monthly 30 days dexamethasone 8 mg (2 x 4 mg) PO ONCE dexamethasone 1 mg PO ONCE diltiazem HCl CD 240 mg PO DAILY fenofibrate 160 mg PO DAILY 90 days fluticasone propionate 50 mcg/actuation 1 spray intranasal DAILY magnesium oxide 250 mg PO metformin ER 500 mg PO BID 90 days methylcellulose (laxative) (Citrucel) 500 mg PO DAILY PRN omeprazole 40 mg PO QAM ondansetron HCl 4 mg PO DAILY 90 days pioglitazone 30 mg PO DAILY trazodone 50 mg PO DAILY HPI SWV G0439 HPI Details awv: CCC not filled out, PPP in scan pile HPI Comments History of Present Illness Details diabetes: denies any neuropathy, fevers, chills, N/V, CP, SOB. 5.5 a1c, microalbumin is up to date. pt gets yearly eye exams, pt is also on a statin. seeing urology (PSA), vascular, cardiology (has in the past), podiatry. b12 def, will recheck levels. forgetfullness getting worse, reassessing labs and will order imaging [facility] Medical History Superior mesenteric artery syndrome Elevated serum creatinine Encounter for annual wellness visit (AWV) in Medicare patient Screening PSA (prostate specific antigen) Plantar callus CKD (chronic kidney disease) stage 3, GFR 30-59 ml/min Acquired hammertoes of both feet Type 2 diabetes mellitus without complication, without long-term current use of insulin Eczema Hearing loss Prostate CA HTN (hypertension) PVD (peripheral vascular disease) Carotid artery stenosis COPD (chronic obstructive pulmonary disease) Dyslipidemia Surgical History History of left-sided carotid endarterectomy Status post aortography with runoff History of atherectomy History of angioplasty H/O colonoscopy with polypectomy History of endarterectomy History of cataract surgery History of cataract surgery Family History Father Medical history non-contributory Mother Medical history non-contributory Son No problems noted. Daughter No problems noted. Daughter No problems noted. Social History Housing: House Alcohol intake: current Patient Tobacco Use Status: Former Tobacco user Years Smoked: quit 25 years ago e-Cigarette/Vaping Use: Never Used Second Hand Smoke Exposure: No service: Yes Current occupational status: retired Cognitive needs: No Hearing needs: No Vision needs: No Questionnaire Medicare Wellness Checkup What is your age?: 80 or older What gender do you identify with?: male During the past 4 weeks, how much have you been bothered by emotional problems such as feeling anxious, depressed, irritable, sad or downhearted, and blue?: slightly During the past 4 weeks, has your physical & emotional health limited your social activities with family, friends, neighbors, or groups?: slightly During the past 4 weeks, how much bodily pain have you generally had?: no pain During the past 4 weeks, was someone available to help you if you needed & wanted help?: yes, as much as I wanted During the past 4 weeks, what was the hardest physical activity you could do for at least 2 minutes?: moderate Can you get to places out of walking distance without help? (For eg., can you travel alone on buses, taxis or drive your car?): Yes Can you go shopping for groceries or clothes without someone's help?: Yes Can you prepare your own meals?: Yes Can you do your housework without help?: Yes Because of any health problems, do you need the help of another person with your personal care needs such as eating, bathing, dressing or getting around the house?: No Can you handle your own money without help?: Yes During the past 4 weeks, how would you rate your health in general?: good During the past 4 weeks how have things been going for you?: pretty well Are you having difficulties driving your car?: no Do you always fasten your seat belt when you are in a car?: yes, usually During past 4 weeks, have you been bothered by the following: never: Falling or dizzy when standing up, Sexual problems?, Teeth or denture problems? and Problems using the telephone? and sometimes: Trouble eating well? and Tiredness or fatigue? Have you fallen 2 or more times in the past year?: No Are you afraid of falling?: No Are you a smoker?: no During the past 4 weeks, how many drinks of wine, beer, or other alcoholic beverages did you have?: 2-5 drinks per week Do you exercise for about 20 minutes 3 or more times a week?: yes, most of the time Have you been given information to help with the following?: yes: Hazards in your house that might hurt you? and yes: Keeping track of your medications? How often do you have trouble taking medicines the way you have been told to take them?: I always take medicine as prescribed How confident are you that you can control & manage most of your health problems?: very confident What is your race?: White Mini Mental State Exam (MMSE) Orientation What is the (year) (season) (date) (day) (month)?: year, season, date, day and month Where are we (state) (county) (town or city) (hospital) (floor)?: state, county, town or city, hospital/clinic and floor Registration Name of 3 unrelated objects clearly and slowly, then ask patient to repeat all 3 of them. (1st repeat determines score. Make sure they can repeat all three): object 1, object 2 and object 3 Attention & Calculation (CHOOSE ONE) Spell WORLD backwards (DLROW): 5 letters Recall Ask patient to repeat the 3 items from question #3.: object 1 and object 2 Language Show patient a wristwatch & ask what it is. Repeat for pencil.: watch and pencil Ask the patient to repeat the phrase 'No ifs, ands, or buts' after you.: correct Ask the patient to 'take a piece of paper with their right hand' 'fold paper in half' 'place paper on floor': take paper in right hand, fold paper in half and place paper on floor Print the sentence 'CLOSE YOUR EYES' on a piece. If patient actually closes eyes then score.: followed written direction Give patient a blank piece of paper & ask to write a sentence. Score if it contains a noun & verb.: sentence contains subject and verb Ask patient to copy figure of intersecting pentagons exactly. Score if all 10 angles & 2 intersects are included.: all 10 angles present & 2 are intersected Score Score: 29 Activity of Daily Living Bathing - sponge bath, tub bath or shower: receives no assistance (gets in/out by self, if usual bathing means Dressing - getting clothes from closets & drawers, including inner/outer garments & fasteners.: gets clothes & gets completely dressed without help Toileting - going to the 'toilet room' for urine/bowel elimination & cleaning self/arranging clothes: goes to toilet room, cleans self, arranges clothes without help Transfer: moves in & out of bed and chair without help (may use support object) Continence: controls urination/bowel movements completely by self Feeding: feeds self without help Total Score: 0 Information obtained from: patient Using telephone: independent Traveling: independent Shopping: independent Preparing meals: independent Housework: independent Taking medicine: independent Managing money: independent PHQ-9 Over the last 2 weeks, how often have you been bothered by any of the following problems? 1. Little interest or pleasure in doing things: not at all 2. Feeling down, depressed, or hopeless: not at all 3. Trouble falling or staying asleep, or sleeping too much: not at all 4. Feeling tired or having little energy: not at all 5. Poor appetite or overeating: not at all 6. Feeling bad about yourself - or that you are a failure or have let yourself or your family down: not at all 7. Trouble concentrating on things, such as reading the newspaper or watching television: not at all 8. Moving or speaking so slowly that other people could have noticed. Or the opposite - being so fidgety or restless that you have been moving around a lot more than usual: not at all 9. Thoughts that you would be better off or of hurting yourself in some way: not at all Total score: 0 Depression Screening Interpretation: Negative Depression Screening Done: Yes 51504 - PHQ-9 Billing: Yes Source: Developed by Drs. Lrary Ohara, Luci Anglin, Charlie Lees and colleagues, with an educational deanna from [employer]. Physical Exam Vital Signs: Last Vital Signs Pulse 53 10/21/24 09:11 Resp 16 10/21/24 09:11 BP 138/70 10/21/24 09:11 Pulse Ox 97 10/21/24 09:11 Oxygen Delivery Method Room Air 10/21/24 09:11 BMI result Body Mass Index 25.0 Resp Effort & Inspection: normal respiratory effort and able to speak in complete sentences Auscultation: clear to auscultation bilaterally Cardio Heart sounds: S1 normal heart sound present and S2 normal heart sound present Neuro Other: stand from sitting position, neg rhomberg, able to tandem walk, didnt pass whisper test (does not want to wear hearing aides). + sensation with use of monofilament Extrem Other: feet are intact bilat, callouses noted Assessment & Plan Assessment & Plan (1) Encounter for subsequent annual wellness visit in Medicare patient: Code(s): Z00.00 - Encounter for general adult medical examination without abnormal findings (2) Diabetes: Code(s): E11.9 - Type 2 diabetes mellitus without complications (3) B12 deficiency: Code(s): E53.8 - Deficiency of other specified B group vitamins (4) Vitamin D deficiency: Code(s): E55.9 - Vitamin D deficiency, unspecified (5) Need for hepatitis B screening test: Code(s): Z11.59 - Encounter for screening for other viral diseases (6) Forgetfulness: Code(s): R68.89 - Other general symptoms and signs (7) Low serum alkaline phosphatase: Code(s): R74.8 - Abnormal levels of other serum enzymes (8) Forgetfulness: Code(s): R68.89 - Other general symptoms and signs Plan . Orders: Orders Complete Blood Count Auto Diff Today E11.9 - Type 2 diabetes mellitus without complications, Z00.00 - Encounter for general adult medical examination without abnormal findings UA CC w/rflx Micro + Cult Today E11.9 - Type 2 diabetes mellitus without complications, Z00.00 - Encounter for general adult medical examination without abnormal findings Vitamin D 25-OH Total Today E53.8 - Deficiency of other specified B group vitamins, E55.9 - Vitamin D deficiency, unspecified Methylmalonic Acid Today R68.89 - Other general symptoms and signs Zinc Today R68.89 - Other general symptoms and signs, R74.8 - Abnormal levels of other serum enzymes Comprehensive Jack. Panel Fast Today E11.9 - Type 2 diabetes mellitus without complications, Z00.00 - Encounter for general adult medical examination without abnormal findings TSH reflex Free T4 Today E11.9 - Type 2 diabetes mellitus without complications, Z00.00 - Encounter for general adult medical examination without abnormal findings Lipid Panel Today E11.9 - Type 2 diabetes mellitus without complications, Z00.00 - Encounter for general adult medical examination without abnormal findings Vitamin B12 and Folate Today E53.8 - Deficiency of other specified B group vitamins Hepatitis A,B,C Profile Today Z11.59 - Encounter for screening for other viral diseases Homocysteine Today R68.89 - Other general symptoms and signs Magnesium Today R68.89 - Other general symptoms and signs, R74.8 - Abnormal levels of other serum enzymes Ceruloplasmin Today R68.89 - Other general symptoms and signs, R74.8 - Abnormal levels of other serum enzymes MR head/brain wo con Today R68.89 - Other general symptoms and signs Quality Reporting (2020) Depression/Bipolar (159/160/161/177) PHQ-9: Total score: 0 Coding Level of Care Code Medicare Subsequent (G0439) Est Pt Level 3 (10595) Diagnoses Encounter for subsequent annual wellness visit in Medicare patient Z00.00 Diabetes E11.9 B12 deficiency E53.8 Vitamin D deficiency E55.9 Need for hepatitis B screening test Z11.59 Forgetfulness R68.89 Low serum alkaline phosphatase R74.8 CPT Codes Advance Care Planning - Time spent: 1-15 minutes, on File ([id number]) Additional Codes PHQ-9 - 50582 - PHQ-9 Billing: Yes ([id number]) Advance Care Planning Forms completed: Health Care Proxy (form given to pt to fill out), MOLST (filled out, copied) and Living will (done) Time spent: 1-15 minutes, on File Actual minutes spent: 8
--- OUTSIDE RECORDS SUMMARY | 2024-10-21 09:59 | XMS_ITS | Clinical Summary ---
Author Organization [facility] Address [address] [place] [address] Care Team Providers Care Signaler Name Role Phone Unavailable Primary Care Provider Unavailabl e Social History Tobacco Use Types Packs/Day Years Used Date Smoking Tobacco: Never Assessed Sex and Gender Information Value Date Recorded Sex Assigned at Not on file Legal Sex Male 6:19 PM EST Gender Identity Not on file Sexual Orientation Not on file Plan of Treatment Health Maintenance Due Date Last Done Comments Advance Care Planning 1940 DTaP/Tdap/Td Vaccines (1 - Tdap) 1960 Pneumococcal Vaccines 50+ (1 of 1 - PCV) 1991 Zoster (Shingles) Vaccine (1 of 2) 1991 RSV Vaccine 60 years and old er and Patients (1 - 1-dose 75+ series) 2016 COVID-19 Vaccine ( - 2023-2 5 season) 2024 Hepatitis B Vaccines Aged Out No long er eligible based on patient's age to complete this topic
--- OUTSIDE RECORDS SUMMARY | 2024-10-21 09:59 | XMS_ITS | Patient Health Record ---
Author Organization [facility] Address [address] [place] [phone] Care Team Providers Care Porter Bath Name Role Phone TOMMY DURÁN Primary Care Provider Kris Tate [phone] Allergies No Known Allergies Results Component Value Reference Range Notes CT abdomen pelvis wo con Reviewed date:12/21/2023 04:34:52 PM Interpretation: Performing Lab: Notes/Report: [address] [address] [address] Scan Report Signed Patient: Kris Coleman MR#: [id number] : 1940 Acct:[id number] Age/Sex: 83 / M ADM Date: 12/15/23 Loc: .CT Attending Dr: Kris Infante MD Ordering Physician: Kris Infante MD Date of Service: 12/15/23 Procedure(s): CT abdomen pelvis wo IV con Accession Number(s): [id number] cc: Tommy Durán [facility]; Kris Infante MD EXAMINATION: CT ABDOMEN [...] OV> 12/15/23 1632 DD/ TD/TT: 12/15/23 1335 Arborer: Complete Blood Count Auto Di ff Reviewed date:01/04/2024 06:22:26 PM Interpretation: Performing Lab:[facility], [address] [place] [phone] Notes/Report: White Blood Count 4.0 4.8-10.8 X10*3/uL [...] Panel Reviewed date:01/04/2024 06:22:38 PM Interpretation: Performing Lab:[address] [address] Notes/Report: Bilirubin Total 0.5 0.0-1.0 mg/dL Bilirubin Direct 0.2 0.0-0.5 mg/dL Aspartate Amino Transferase 39 5-37 U/L Slight Hemolysis.Interpret result with caution. Alanine Aminotransferase 19 0-40 U/L Total Protein 6.2 6.5-8.0 g/dL Albumin Level 3.7 3.5-5.0 g/dL Alkaline Phosphatase 42 39-117 U/L Basic Metabolic Panel Reviewed date:01/04/2024 06:24:42 PM Interpretation: Performing Lab:[address] [address] Notes/Report: Sodium 142 135-145 mmol/L Potassium 4.5 [...] PROFILE Reviewed date:01/04/2024 12:39:25 PM Interpretation: Performing Lab:[address] [address] Notes/Report: Iron 83 45-160 mcg/dL Slight Hemolys is.Interpret result with caution. Total Iron Binding Capacity 356 228-428 mcg/d L Percent Iron Saturation 23 15-50 % Unsaturated Iron Binding 273 Ferritin Reviewed date:01/04/2024 06:24:51 PM Interpretation: Performing Lab:[address] [address] Notes/Report: Ferritin 53 20-250 ng/mL Free T4 (Free Thyroxine) Reviewed date:01/04/2024 06:24:58 PM Interpretation: Performing Lab:[address] [place] [address] Notes/Report: Free T4 (Free Thyroxine) 1.17 0.71-1.85 ng/dL TSH reflex Free T4 Reviewed date:01/04/2024 12:39:16 PM Interpretation: Performing Lab:[facility], [address] [place] [phone] Notes/Report: TSH reflex Free T4 4.01 0.32-4.0 [...] as directed Orally as directed Active Nasal [place] 0.05 % 4 sprays (2 sprays in [...] W/U Status Risk Notes Problem Epigastric pain (00607770) Epigastric abdominal pain (R10.13) Active confirmed Problem Epigastric pain (39866326) Epigastric pain (R10.13) Active confirmed Problem Perforation and abscess of small intestine co-occurrent and due to diverticulitis (disorder) (384587398) Diverticulitis of small intestine with perforation and abscess without bleeding (K57.00) Active confirmed Problem Diverticulitis of small intestine (94576907) Diverticulitis of small intestine without perforation or abscess without bleeding (K57.12) Active confirmed Problem Nausea (040073345) Nausea (R11.0) Active confir med Problem Anorexia (45785612) Anorexia (R63.0) Active con firmed Problem Early satiety (274005331) Early satiety (R68.81) Active confirmed Problem Anemia (294887529) Anemia (D64.9) Active confir med Problem Gastritis (0220131) Gastritis (K29.70) Active confirmed Problem Chronic fatigue syndrome (61833840) Chronic fatigue (R53.82) Active confirmed Problem Gastroesophageal reflux disease (690151200) GERD (gastroesophageal reflux disease) (K21.9) Active confirmed Problem Loss of appetite (67021940) Decreased appetite (R63.0) Active confirmed Vital Signs Blood pressure diastolic 11 mm Hg 04/23/2024 Height 67 in 04/23/2024 Blood pressure systolic 111 mm Hg 04/23/2024 Weight 162 lbs 04/23/2024 BMI 25.37 kg/m2 04/23/2024 Encounters Encounter Location Date Provider Diagnosis [facility] [address] [place] [address] 10/24/2023 Kris Infante Diverticulitis of sm all intestine with perforation and abscess without bleeding K57.00 ; Anemia D64.9 and Chronic fatigue R53.82 [facility] [address] [place] [phone] 04/23/2024 Kris Infante Diverticulitis of sm all intestine with perforation and abscess without bleeding K57.00 [facility] [address] [place] [address] [address] 11/16/2023 Kris Infante [facility] [address] [place] [phone] 11/20/2023 Kris Infante [facility] [address] [place] [phone] 12/05/2023 Kris Infante [facility] [address] [place] [phone] 12/21/2023 Kris Infante [facility] [address] [place] [phone] 01/04/2024 Kris Infante Assessments Encounter Date Diagnosis [...] protein powder until the meets with his knotter next month. I did advise him to [...] protein powder until the meets with his knotter next month. I did advise him to [...] protein powder until the meets with his knotter next month. I did advise him to [...] Provider Name:Kris Infante , 04/24/2025 10:00:00 AM, [address] [place] [address], [address], [place], [address], Insurance Providers Payer Name Payer Address Payer Phone Subscriber Number Group Number Insured Name Patient Relationship to Insured Coverage Start Date Coverage End Date MEDICARE OF [place] [address] [place] [phone] [id number] KRIS BAKER Self - patient is the insured [employer] CLAIMS [address] [place] [phone] [id number] KRIS BAKER Self - patient is the [...] MARSHAL-followed by vascular surgery, Dr. Soler, at [facility]. He felt this presented more of a chronic issue as opposed to an acute problem. Inflammation and small absce sses in the region of the small bowel seen on the CT scan during the workup for the abdominal pain in April of 2023. This was treated with IV and subsequent oral antibiotics at [facility]. There was the finding of multiple [...]
--- OUTSIDE RECORDS SUMMARY | 2024-10-21 09:59 | XMS_ITS | Patient Health Record ---
[facility] Address [address] [facility] [place] [address] Care Team Providers Care Director Home Name Role Phone Cristhian Garcia Primary Care Provider Unav ailable Black, Estela Unavailable [phone] Allergies No Known Allergies Results Component Value [...] Problem Acquired hammer toe of right foot (9623017436533135 ) Other hammer toe(s) (acquired), right foot (M20.41) Active confirmed Problem Acquired hammer toe of left foot (2053495831705276 ) Other hammer toe(s) (acquired), left foot (M20.42) Active confirmed Problem Polyneuropathy due to type 2 diabetes mellitus (371680204) Type 2 diabetes mellitus with diabetic polyneuropathy (E11.42) Active confirmed Vital Signs Blood pressure diastolic 70 mm Hg 09/05/2024 Height 5 ft 6 in in 09/05/2024 Blood pressure systolic 120 mm Hg 09/05/2024 Weight 145 lbs 09/05/2024 BMI 23.4 kg/m2 09/05/2024 Procedures Procedure Date Ordered Date Performed Result Body Sit e 24135-SNSI SKIN LESIONS, 2 TO 4 03/07/2024 N/A 67186-JRPW NAIL(S) 03/07/2024 N/A 57857-LZRK SKIN LESIONS, 2 TO 4 09/05/2024 N/A 42913-PEOZ NAIL(S) 09/05/2024 N/A Encounters Encounter Location Date Provider Diagnosis [facility] [address] [address] 03/07/2024 Estela Black Type 2 diabetes mellitus with diabetic polyneuropathy E11.42 and Xerosis of skin L85.3 [facility] [address] 09/05/2024 Estela Black Type 2 diabetes mellitus [...] Treatment Pending Test Test Name Order Date 41981-KTEC SKIN LESIONS, OVER 4 12/07/19 11 34000-BPKN SKIN LESIONS, OVER 4 06/26/19 13 08893-GLZH SKIN LESIONS, OVER 4 01/01/20 13 08195-TRNJ SKIN LESIONS, OVER 4 07/26/19 14 11898-TNQK SKIN LESIONS, OVER 4 01/16/20 14 87428-VCGU SKIN LESIONS, OVER 4 07/17/19 15 72741-PHEP SKIN LESIONS, 2 TO 4 01/15/20 15 17163-KTES SKIN LESIONS, 2 TO 4 12/22/19 12 01501-BYGV SKIN LESIONS, 2 TO 4 06/20/19 12 27900-TEOT SKIN LESIONS, 2 TO 4 07/20/19 16 04852-AJOE SKIN LESIONS, 2 TO 4 01/18/20 16 48664-KFKH SKIN LESIONS, 2 TO 4 07/19/19 17 18678-ATWW SKIN LESIONS, 2 TO 4 01/24/20 17 10231-NEBW SKIN LESIONS, 2 TO 4 01/16/20 18 85810-LJTS SKIN LESIONS, 2 TO 4 08/21/19 19 83054-HXJE SKIN LESIONS, 2 TO 4 02/25/19 20 98635-ZKKJ SKIN LESIONS, 2 TO 4 08/08/19 20 98631-SATW SKIN LESIONS, 2 TO 4 02/03/20 20 31639-ZJGV SKIN LESIONS, 2 TO 4 07/21/19 21 41571-CMCO SKIN LESIONS, 2 TO 4 02/22/19 22 86159-WHBE SKIN LESIONS, 2 TO 4 08/31/19 22 60346-NZSX SKIN LESIONS, 2 TO 4 02/24/19 23 46781-EYWG SKIN LESIONS, 2 TO 4 08/26/19 23 64458-XDZE SKIN LESIONS, 2 TO 4 03/02/19 24 90071-JBLO SKIN LESIONS, 2 TO 4 08/31/19 24 30833-QGUK SKIN LESIONS, 2 TO 4 03/07/19 25 57549-ZVGO SKIN LESIONS, 2 TO 4 09/06/19 25 18748-SWHQ NAIL(S) 09/05/2024 57690-NWPK NAIL(S) 03/07/2024 48859-EJXE NAIL(S) 08/31/2023 17889-ORLP NAIL(S) 03/02/2023 75657-KZPO NAIL(S) 08/25/2022 42605-DQQP NAIL(S) 02/24/2022 84791-XDZE NAIL(S) 08/30/2021 41227-YEAY NAIL(S) 02/22/2021 26835-YPFV NAIL(S) 07/20/2020 31429-LVYQ NAIL(S) 02/03/2020 14457-KBYY NAIL(S) 08/08/2019 04642-OIPL NAIL(S) 02/25/2019 19652-EQJR NAIL(S) 08/20/2018 83261-KMZD NAIL(S) 01/15/2018 64194-NLML NAIL(S) 07/18/2016 34537-PBIR NAIL(S) 01/18/2016 82096-CJXE NAIL(S) 07/20/2015 36297-OMNL NAIL(S) 12/22/2011 32774-QCRO NAIL(S) 12/06/2010 31829-JKAD NAIL(S) 06/20/2011 98004-BNLP NAIL(S) 06/25/2012 40711-PXEO NAIL(S) 12/31/2012 35723-ANHN NAIL(S) 01/14/2015 21111-RLQS NAIL(S) 07/16/2014 99041-ZVTH NAIL(S) 01/15/2014 61856-VIHW NAIL(S) 07/25/2013 W4005-JEDXXOEU DYSTROPHIC NAILS ANY # Next Appt Details Provider Name:Estela Bell , 03/06/2025 09:00:00 AM, [address] [place], [address], Insurance Providers Payer Name Payer Address Payer Phone Subscriber Number Group Number Insured Name Patient Relationship to Insured Coverage Start Date Coverage End Date Medicare National Govt Svcs Inc [address] [place] [address] [id number] Larry Pichardo Self - patient is the insured [employer] [address] [place] [address] [phone] [id number] Larry Pichardo Self - patient is the insured Medical (General) History Medical History History ICD Code mumps measles hypertension diabetic chicken pox cancer Cholesterol Surgical History Surgery Date(Month/Year) opened artery 08/08/2018 cataract surgery
--- OUTSIDE RECORDS SUMMARY | 2024-10-21 10:00 | XMS_ITS | Clinical Summary ---
Author Organization [facility] Address [address] [address] Phone Care Team Providers Care Continuous Pickling Line Pickler Name Role Phone Cristhian Durán NP Primary Care Provider [phone] Allergies No known active allergies Medications atorvastatin [...] Care Team (Late st Contact Info) Description 11/15/2024 Orders Only [facility] [address] [phone] Hawk Aiken MD [address] [address] Stage 3b chronic kidney disease (HCC); Hypomagnesemia; Hypertension; Diabetes mellitus, not otherwise specified (HCC); Vitamin D deficiency, not otherwise specified; Personal history of prostate cancer; Peripheral arterial occlusive disease (HCC); Abdominal aortic aneurysm without rupture, not otherwise specified (HCC) 11/19/2024 10:40 AM EDT Office Visit [facility] [address] [phone] Hawk Aiken MD [address] [address] Health Maintenance Due Date Last Done Comments Diabetes: Hemoglobin A1C 02/21/2022 Diabetes: Ophthalmology Exam 02/21/2022 Diabetes: Pedal Pulse Checked 02/21/2022 Diabetes: Sensory Foot Exam 02/21/2022 Diabetes: Visual Foot Exam 02/21/2022 Influenza Vaccine (#1) 2024 4, 12/14/2022, 10/14/2020, Additional history exists Pneumococcal Vaccine: 50+ Years Completed 12/10/2019, 03/03/2016 Hepatitis B Vaccine Aged Out No longe r eligible based on patient's age to complete this topic Insurance Medicare [facility] Medicare [facility] Care Teams Continuous Pickling Line Pickler Relationship Specialty Start Date End Date Cristhian Durán NP [address] [place] [address] PCP - General Nurse Practitioner 02/16/22
== END 2024-10-21 11:02 | disposition home or self-care (01) ==
LOC: HO.HMCC 08:54
PROVIDERS: PCP Nurse Practitioner Family; Visit Provider Nurse Practitioner Family
DX: Z00.00 Encounter for general adult medical examination without abnormal findings (principal); E11.9 Type 2 diabetes mellitus without complications; E53.8 Deficiency of other specified B group vitamins; E55.9 Vitamin D deficiency, unspecified; Z11.59 Encounter for screening for other viral diseases; R68.89 Other general symptoms and signs; R74.8 Abnormal levels of other serum enzymes

== ENCOUNTER 2024-11-28 08:50 | Outpatient (AMB) | payer MEDICARE, SELFPAY ==
--- NOTE | 2024-11-28 09:02 | AM.OFFVISNUR ---
Intake Visit Reasons: B-12 shot Intake Note: Pt arrived for monthly B-12 injection Allergies No Known Allergies (No Known Allergies*) Allergy (Verified 10/08/24 09:34) Office Meds cyanocobalamin (vitamin B-12) 1,000 mcg/mL injection solution Performing Provider: KLAUDIA Morales Performing Location: [facility] Administered by: Cici Van RN on 11/28/24 09:02 Dose Route Admin Location Dispensed Lot Number Expiration Date [facility] Sound Designer 1,000 mcg IM left deltoid 1 mL [id number] 05/14/26 02434-431-09 [employer] Total Dispensed Waste 1 mL 0 % Comments: Pt supplied Assessment & Plan Assessment & Plan Orders: Orders AMB Vitamin B12 Injection Patient Supplied Today E53.8 - Deficiency of other specified B group vitamins Coding
--- OUTSIDE RECORDS SUMMARY | 2024-11-28 09:42 | XMS_ITS | Clinical Summary ---
Author Organization [facility] Address [address] [place] [address] Care Team Providers Care Sander Portable Machine Name Role Phone Unavailable Primary Care Provider [...] Vaccine (1 of 2) 1991 RSV Vaccine 50 years and old er and Patients (1 - 1-dose 75+ series) 2016 COVID-19 Vaccine ( - 2023-2 5 season) 2024 Hepatitis B Vaccines Aged Out No long er eligible based on patient's age to complete this topic
--- OUTSIDE RECORDS SUMMARY | 2024-11-28 09:43 | XMS_ITS | Patient Health Record ---
Author [facility] Address [address] [facility] [place] [address] Care Team Providers Care Director Project Management Name Role Phone Cristhian Garcia Primary Care Provider Unav ailable Black, Estela Unavailable [phone] Allergies No Known Allergies Results Component Value [...] Problem Acquired hammer toe of right foot (4286837983596806 ) Other hammer toe(s) (acquired), right foot (M20.41) Active confirmed Problem Acquired hammer toe of left foot (1634075615474577 ) Other hammer toe(s) (acquired), left foot (M20.42) Active confirmed Problem Polyneuropathy due to type 2 diabetes mellitus (813611249) Type 2 diabetes mellitus with diabetic polyneuropathy (E11.42) Active confirmed Vital Signs Blood pressure diastolic 70 mm Hg 09/05/2024 Height 5 ft 6 in in 09/05/2024 Blood pressure systolic 120 mm Hg 09/05/2024 Weight 145 lbs 09/05/2024 BMI 23.4 kg/m2 09/05/2024 Procedures Procedure Date Ordered Date Performed Result Body Sit e 67083-GTAO SKIN LESIONS, 2 TO 4 03/07/2024 N/A 41138-WBQU NAIL(S) 03/07/2024 N/A 10098-TVSA SKIN LESIONS, 2 TO 4 09/05/2024 N/A 62169-DIHE NAIL(S) 09/05/2024 N/A Encounters Encounter Location Date Provider Diagnosis [facility] [address] [address] 03/07/2024 Estela Black Type 2 diabetes mellitus with diabetic polyneuropathy E11.42 and Xerosis of skin L85.3 [facility] [address] 09/05/2024 Estela Black Type 2 diabetes mellitus [...] Treatment Pending Test Test Name Order Date 55932-BHXC SKIN LESIONS, OVER 4 12/07/19 11 06776-LGDD SKIN LESIONS, OVER 4 06/26/19 13 47614-MYJW SKIN LESIONS, OVER 4 01/01/20 13 06676-YEQK SKIN LESIONS, OVER 4 07/26/19 14 79922-JOBD SKIN LESIONS, OVER 4 01/16/20 14 39102-ENGK SKIN LESIONS, OVER 4 07/17/19 15 04075-EMFO SKIN LESIONS, 2 TO 4 01/15/20 15 22183-YXOP SKIN LESIONS, 2 TO 4 12/22/19 12 16000-ECYB SKIN LESIONS, 2 TO 4 06/20/19 12 48667-VXDY SKIN LESIONS, 2 TO 4 07/20/19 16 14537-TPFT SKIN LESIONS, 2 TO 4 01/18/20 16 17141-TCMA SKIN LESIONS, 2 TO 4 07/19/19 17 24903-LKKQ SKIN LESIONS, 2 TO 4 01/24/20 17 48431-JYFZ SKIN LESIONS, 2 TO 4 01/16/20 18 80143-IYIE SKIN LESIONS, 2 TO 4 08/21/19 19 78932-YPNV SKIN LESIONS, 2 TO 4 02/25/19 20 68461-LQDH SKIN LESIONS, 2 TO 4 08/08/19 20 98628-VSVH SKIN LESIONS, 2 TO 4 02/03/20 20 56671-XDJH SKIN LESIONS, 2 TO 4 07/21/19 21 65291-IMTM SKIN LESIONS, 2 TO 4 02/22/19 22 92249-GAQZ SKIN LESIONS, 2 TO 4 08/31/19 22 01156-YEUX SKIN LESIONS, 2 TO 4 02/24/19 23 68829-PKGL SKIN LESIONS, 2 TO 4 08/26/19 23 57382-CUUB SKIN LESIONS, 2 TO 4 03/02/19 24 68083-XMAY SKIN LESIONS, 2 TO 4 08/31/19 24 22823-CMLJ SKIN LESIONS, 2 TO 4 03/07/19 25 32711-DUIU SKIN LESIONS, 2 TO 4 09/06/19 25 60247-GGKM NAIL(S) 09/05/2024 70452-LMCM NAIL(S) 03/07/2024 65013-OCEE NAIL(S) 08/31/2023 84335-IGKG NAIL(S) 03/02/2023 34171-UQKA NAIL(S) 08/25/2022 12222-GWYT NAIL(S) 02/24/2022 35071-ITUF NAIL(S) 08/30/2021 49131-KYKF NAIL(S) 02/22/2021 60711-KQHO NAIL(S) 07/20/2020 88396-KPBO NAIL(S) 02/03/2020 85565-ZACK NAIL(S) 08/08/2019 65278-WHSB NAIL(S) 02/25/2019 90596-HXJJ NAIL(S) 08/20/2018 39755-TKIL NAIL(S) 01/15/2018 69750-FKGQ NAIL(S) 07/18/2016 18788-SUON NAIL(S) 01/18/2016 03943-VIKQ NAIL(S) 07/20/2015 99746-UQOS NAIL(S) 12/22/2011 25791-WRUW NAIL(S) 12/06/2010 20569-TSEI NAIL(S) 06/20/2011 61193-IYXP NAIL(S) 06/25/2012 54105-CZVE NAIL(S) 12/31/2012 27945-VDSB NAIL(S) 01/14/2015 90173-ZNRD NAIL(S) 07/16/2014 65626-CHEZ NAIL(S) 01/15/2014 00439-GHZL NAIL(S) 07/25/2013 S1243-PHCWZWDX DYSTROPHIC NAILS ANY # Next Appt Details Provider Name:Estela Bell , 03/06/2025 09:00:00 AM, [address] [place], [address], Insurance Providers Payer Name Payer Address Payer Phone Subscriber Number Group Number Insured Name Patient Relationship to Insured Coverage Start Date Coverage End Date Medicare National Govt Svcs Inc [address] [facility] [address] [id number] Larry Pichardo Self - patient is the insured [employer] Blue Shield [address] [place] [address] [id number] Larry Pichardo Self - patient is the insured Medical (General) History Medical History History ICD Code mumps measles hypertension diabetic chicken pox cancer Cholesterol Surgical History Surgery Date(Month/Year) opened artery 08/08/2018 cataract surgery
--- OUTSIDE RECORDS SUMMARY | 2024-11-28 09:43 | XMS_ITS | Patient Health Record ---
Author Organization [facility] Address [address] [place] [address] Care Team Providers Care Contracts Analyst Name Role Phone TOMMY DURÁN Primary Care Provider Kris Tate [phone] Allergies No Known Allergies Results Component Value Reference Range Notes CT abdomen pelvis wo con Reviewed date:12/21/2023 04:34:52 PM Interpretation: Performing Lab: Notes/Report: [address] [address] [address] Scan Report Signed Patient: Kris Coleman MR#: [id number] : 1940 Acct:[id number] Age/Sex: 83 / M ADM Date: 12/15/23 Loc: .CT Attending Dr: Kris Infante MD Ordering Physician: Kris Infante MD Date of Service: 12/15/23 Procedure(s): CT abdomen pelvis wo IV con Accession Number(s): [id number] cc: Tommy Durán [facility]; Kris Infante MD EXAMINATION: CT ABDOMEN [...] OV> 12/15/23 1632 DD/ TD/TT: 12/15/23 1335 [place] Custodian: Complete Blood Count Auto Di ff Reviewed date:01/04/2024 06:22:26 PM Interpretation: Performing Lab:[facility], [address] [place] [address] Notes/Report: White Blood Count 4.0 4.8-10.8 X10*3/uL [...] Panel Reviewed date:01/04/2024 06:22:38 PM Interpretation: Performing Lab:[address] [address] Notes/Report: Bilirubin Total 0.5 0.0-1.0 mg/dL Bilirubin Direct 0.2 0.0-0.5 mg/dL Aspartate Amino Transferase 39 5-37 U/L Slight Hemolysis.Interpret result with caution. Alanine Aminotransferase 19 0-40 U/L Total Protein 6.2 6.5-8.0 g/dL Albumin Level 3.7 3.5-5.0 g/dL Alkaline Phosphatase 42 39-117 U/L Basic Metabolic Panel Reviewed date:01/04/2024 06:24:42 PM Interpretation: Performing Lab:[address] [address] Notes/Report: Sodium 142 135-145 mmol/L Potassium 4.5 [...] PROFILE Reviewed date:01/04/2024 12:39:25 PM Interpretation: Performing Lab:[address] [address] Notes/Report: Iron 83 45-160 mcg/dL Slight Hemolys is.Interpret result with caution. Total Iron Binding Capacity 356 228-428 mcg/d L Percent Iron Saturation 23 15-50 % Unsaturated Iron Binding 273 Ferritin Reviewed date:01/04/2024 06:24:51 PM Interpretation: Performing Lab:[address] [address] Notes/Report: Ferritin 53 20-250 ng/mL Free T4 (Free Thyroxine) Reviewed date:01/04/2024 06:24:58 PM Interpretation: Performing Lab:[address] [place] [address] Notes/Report: Free T4 (Free Thyroxine) 1.17 0.71-1.85 ng/dL TSH reflex Free T4 Reviewed date:01/04/2024 12:39:16 PM Interpretation: Performing Lab:[facility], [address] [place] [address] Notes/Report: TSH reflex Free T4 4.01 0.32-4.0 uIU/mL Reason For Referral No Information Medications Medication SIG (Take, Route, Frequency, Duration) Notes Start Date End Date Status Magnesium 200 MG 1 tablet with a meal Orally Twice a day Active Omeprazole 40 MG TAKE 1 CAPSULE BY MOUTH EVERY MORNING Orally Once a day; Duration: 30 days Active Vitamin D3 Active Readi-Cat 2 2 % 1 450ml bottle [address] and then 1 450ml bottle [address] Orally 2 bottles as directed; Duration: 1 days 11/19/2023 Active Aspirin 81 81 MG 1 tablet Orally Once a day; Duration: 30 day(s) Active Famotidine 40 MG 1 Orally Twice a day; Duration: 30 days 04/20/2023 Active Vitamin B12 INJECTIONS [...] as directed Orally as directed Active Nasal [place] 0.05 % 4 sprays (2 sprays in each nostril) Nasally Twice a day; Duration: 3 day(s) Not-Taking Immunizations Vaccine Route Administration [...] W/U Status Risk Notes Problem Epigastric pain (11557124) Epigastric abdominal pain (R10.13) Active confirmed Problem Epigastric pain (16069180) Epigastric pain (R10.13) Active confirmed Problem Perforation and abscess of small intestine co-occurrent and due to diverticulitis (disorder) (081012435) Diverticulitis of small intestine with perforation and abscess without bleeding (K57.00) Active confirmed Problem Diverticulitis of small intestine (66675308) Diverticulitis of small intestine without perforation or abscess without bleeding (K57.12) Active confirmed Problem Nausea (373367614) Nausea (R11.0) Active confir med Problem Anorexia (12083926) Anorexia (R63.0) Active con firmed Problem Early satiety (516866924) Early satiety (R68.81) Active confirmed Problem Anemia (808532584) Anemia (D64.9) Active confir med Problem Gastritis (9475098) Gastritis (K29.70) Active confirmed Problem Chronic fatigue syndrome (72584387) Chronic fatigue (R53.82) Active confirmed Problem Gastroesophageal reflux disease (664170176) GERD (gastroesophageal reflux disease) (K21.9) Active confirmed Problem Decrease in appetite (finding) (88198345) Decreased appetite (R63.0) Active confirmed Vital Signs Blood pressure diastolic 11 mm Hg 04/23/2024 Height 67 in 04/23/2024 Blood pressure systolic 111 mm Hg 04/23/2024 Weight 162 lbs 04/23/2024 BMI 25.37 kg/m2 04/23/2024 Encounters Encounter Location Date Provider Diagnosis [facility] [address] [facility] [address] [place] [address] 04/23/2024 Kris Infante Diverticulitis of sm all intestine with perforation and abscess without bleeding K57.00 [facility] [address] [place] [address] 12/05/2023 Kris Infante [facility] [address] [place] [address] 12/21/2023 Kris Infante [facility] [address] [place] [address] 01/04/2024 Kris Infante Assessments Encounter Date Diagnosis [...] Provider Name:Kris Infante , 04/24/2025 10:00:00 AM, [address] [place] [address], [address], [place], [address], Insurance Providers Payer Name Payer Address Payer Phone Subscriber Number Group Number Insured Name Patient Relationship to Insured Coverage Start Date Coverage End Date MEDICARE OF [place] [address] [place] [address] [id number] KRIS BAKER Self - patient is the insured [employer] ATT[employer] CLAIMS [address] [place] [address] [id number] KRIS BAKER Self - patient is the insured Medical (General) History Medical History History ICD Code Kidney stones COPD Prostate cancer NIDDM Hypertension Denies PR,CVA,Lung disease,renal disease Negative colonoscopy > 10 years [...] MARSHAL-followed by vascular surgery, Dr. Soler, at [facility]. He felt this presented more of a chronic issue as opposed to an acute problem. Inflammation and small absce sses in the region of the small bowel seen on the CT scan during the workup for the abdominal pain in April of 2023. This was treated with IV and subsequent oral antibiotics at [facility]. There was the finding of multiple [...]
== END 2024-11-28 09:33 | disposition home or self-care (01) ==
LOC: HO.HMCC 08:51
PROVIDERS: PCP Nurse Practitioner Family; Visit Provider Nurse Practitioner Family
DX: E53.8 Deficiency of other specified B group vitamins (principal)

== ENCOUNTER → 2024-11-28 08:50 | Outpatient (BNVA) | payer MEDICARE, SELFPAY | PROVIDERS: PCP Nurse Practitioner Family; Visit Provider Nurse Practitioner Family | DX: E53.8 Deficiency of other specified B group vitamins (principal) | CPT/HCPCS: 96372; J3420 ==

== ENCOUNTER 2024-12-06 10:02 | Outpatient (REF) | payer MEDICARE, SELFPAY ==
--- NOTE | ~2024-12-06 | MR_ITS ---
EXAMINATION: MR BRAIN WITHOUT CONTRAST CLINICAL INFORMATION: Forgetful. Decreased of loss of hearing. COMPARISON: None available. TECHNIQUE: MRI of the brain was obtained using routine sequences without contrast. FINDINGS: No restricted diffusion. No acute intracranial hemorrhage, mass effect, midline shift, hydrocephalus or herniation. Focal susceptibility signal in the left parietal white matter convexity. Bilateral, a few, scattered, hyperintense T2 FLAIR signal foci, centrum semiovale and keenan radiata. Posterior cranial fossa contents demonstrated no signal abnormality or mass effect. Normal position of the cerebellar tonsils. Sellar/suprasellar region demonstrated no gross masses or signal abnormality. Flow-void signal within the main cerebral vessels is normal with a dolichoectatic left vertebral vascular system and dominant left vertebral artery. Prominence of the extra-axial CSF spaces cerebral sulci and ventricles involving mostly the bifrontal parietal and to a lesser extent temporal lobes. Hyperintense T2 FLAIR signal, left mastoid air cells. There is a well-defined, 1 x 4 x 3 cm fat signal characteristic lesion, midline to the left suboccipital fat planes. MR/MR head/brain wo con IMPRESSION: No acute brain abnormality. Bifrontal bitemporal parietal lobe atrophy. Probable small vessel occlusive disease. 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 4 cm lipoma, suboccipital fat plane. Inflammatory processes, left mastoid air cells.. Electronically signed by: Vin Mcclelland MD 12/06/2024 11:06 AM EDT
--- OUTSIDE RECORDS SUMMARY | 2024-12-06 11:21 | XMS_ITS | Clinical Summary ---
Author Organization [facility] Address [address] [place] [address] Care Team Providers Care Forest Manager Name Role Phone Unavailable Primary Care [...]
--- OUTSIDE RECORDS SUMMARY | 2024-12-06 11:21 | XMS_ITS | Patient Health Record ---
Author Organization [facility] Address [address] [place] [address] Care Team Providers Care Petroleum Refining Equipment Operator Name Role Phone TOMMY DURÁN Primary Care Provider Kris Tate [phone] Allergies No Known Allergies Results Component Value Reference Range Notes CT abdomen pelvis wo con Reviewed date:12/21/2023 04:34:52 PM Interpretation: Performing Lab: Notes/Report: [address] [address] [address] Scan Report Signed Patient: Kris Coleman MR#: [id number] : 1940 Acct:[id number] Age/Sex: 83 / M ADM Date: 12/15/23 Loc: .CT Attending Dr: Kris Infante MD Ordering Physician: Kris Infante MD Date of Service: 12/15/23 Procedure(s): CT abdomen pelvis wo IV con Accession Number(s): [id number] cc: Tommy Durán [facility]; Kris Infante MD EXAMINATION: CT ABDOMEN [...] OV> 12/15/23 1632 DD/ TD/TT: 12/15/23 1335 [employer] Curer: Complete Blood Count Auto Di ff Reviewed date:01/04/2024 06:22:26 PM Interpretation: Performing Lab:[facility], [address] [place] [address] Notes/Report: White Blood Count 4.0 4.8-10.8 X10*3/uL [...] Panel Reviewed date:01/04/2024 06:22:38 PM Interpretation: Performing Lab:[address] [address] Notes/Report: Bilirubin Total 0.5 0.0-1.0 mg/dL Bilirubin Direct 0.2 0.0-0.5 mg/dL Aspartate Amino Transferase 39 5-37 U/L Slight Hemolysis.Interpret result with caution. Alanine Aminotransferase 19 0-40 U/L Total Protein 6.2 6.5-8.0 g/dL Albumin Level 3.7 3.5-5.0 g/dL Alkaline Phosphatase 42 39-117 U/L Basic Metabolic Panel Reviewed date:01/04/2024 06:24:42 PM Interpretation: Performing Lab:[address] [address] Notes/Report: Sodium 142 135-145 mmol/L Potassium 4.5 [...] PROFILE Reviewed date:01/04/2024 12:39:25 PM Interpretation: Performing Lab:[address] [address] Notes/Report: Iron 83 45-160 mcg/dL Slight Hemolys is.Interpret result with caution. Total Iron Binding Capacity 356 228-428 mcg/d L Percent Iron Saturation 23 15-50 % Unsaturated Iron Binding 273 Ferritin Reviewed date:01/04/2024 06:24:51 PM Interpretation: Performing Lab:[address] [address] Notes/Report: Ferritin 53 20-250 ng/mL Free T4 (Free Thyroxine) Reviewed date:01/04/2024 06:24:58 PM Interpretation: Performing Lab:[address], [place] [address] Notes/Report: Free T4 (Free Thyroxine) 1.17 0.71-1.85 ng/dL TSH reflex Free T4 Reviewed date:01/04/2024 12:39:16 PM Interpretation: Performing Lab:[address] [address] Notes/Report: TSH reflex Free T4 4.01 0.32-4.0 [...] 1 tablet Oral Once a day Active Amoxicillin-Pot Clavulanate 875-125 MG 1 tablet Orally twice a day; Duration: 5 days 12/02/2024 Active dilTIAZem HCl ER Coated Beads 240 [...] as directed Orally as directed Active Nasal Ferguson 0.05 % 4 sprays (2 sprays in [...] W/U Status Risk Notes Problem Epigastric pain (12251210) Epigastric abdominal pain (R10.13) Active confirmed Problem Epigastric pain (34503554) Epigastric pain (R10.13) Active confirmed Problem Perforation and abscess of small intestine co-occurrent and due to diverticulitis (disorder) (004920791) Diverticulitis of small intestine with perforation and abscess without bleeding (K57.00) Active confirmed Problem Diverticulitis of small intestine (86944423) Diverticulitis of small intestine without perforation or abscess without bleeding (K57.12) Active confirmed Problem Nausea (034200447) Nausea (R11.0) Active confir med Problem Anorexia (16367350) Anorexia (R63.0) Active con firmed Problem Early satiety (342035914) Early satiety (R68.81) Active confirmed Problem Anemia (709159691) Anemia (D64.9) Active confir med Problem Gastritis (7012764) Gastritis (K29.70) Active confirmed Problem Chronic fatigue syndrome (25748530) Chronic fatigue (R53.82) Active confirmed Problem Gastroesophageal reflux disease (666702574) GERD (gastroesophageal reflux disease) (K21.9) Active confirmed Problem Decrease in appetite (finding) (20579391) Decreased appetite (R63.0) Active confirmed Vital Signs Blood pressure diastolic 11 mm Hg 04/23/2024 Height 67 in 04/23/2024 Blood pressure systolic 111 mm Hg 04/23/2024 Weight 162 lbs 04/23/2024 BMI 25.37 kg/m2 04/23/2024 Encounters Encounter Location Date Provider Diagnosis [facility] [address] [place] [address] [place] [address] 04/23/2024 Kris Infante Diverticulitis of sm all intestine with perforation and abscess without bleeding K57.00 [facility] [address] [place] [address] 12/21/2023 Kris Infante [facility] [address] [place] [address] 01/04/2024 Kris Infante [facility] [address] [place] [address] 12/02/2024 Kris Infante Assessments Encounter Date Diagnosis (ICD [...] Name:Kris Jose Infante , 04/24/2025 10:00:00 AM, [address] [place] [address], [address], [place], [address], Insurance Providers Payer Name Payer Address Payer Phone Subscriber Number Group Number Insured Name Patient Relationship to Insured Coverage Start Date Coverage End Date MEDICARE OF [place] [address] [place] [address] [id number] KRIS BAKER Self - patient is the insured [employer] CLAIMS [address] [place] [address] [id number] KRIS BAKER Self - patient is the insured Medical (General) History Medical History History ICD Code Kidney stones COPD Prostate cancer NIDDM Hypertension Denies GA,CVA,Lung disease,renal disease Negative colonoscopy > 10 years [...] MARSHAL-followed by vascular surgery, Dr. Soler, at [facility]. He felt this presented more of a chronic issue as opposed to an acute problem. Inflammation and small absce sses in the region of the small bowel seen on the CT scan during the workup for the abdominal pain in April of 2023. This was treated with IV and subsequent oral antibiotics at [facility]. There was the finding of [...]
--- OUTSIDE RECORDS SUMMARY | 2024-12-06 11:21 | XMS_ITS | Clinical Summary ---
Author Organization [facility] Address [address] [address] Phone Care Team Providers Care Piece Goods Packer Name Role Phone Cristhian Durán NP Primary Care Provider [phone] Allergies No known active allergies Medications atorvastatin [...] tablet 03/08/2022 Active Magnesium Oxide -Mg Supplement 250 MG tablet TAKE 1 TABLET BY MOUTH EVERY MORNING AND EVERY EVENING 180 tablet 3 11/25/2024 Active Active Problems Problem Noted Date Diagnosed Date Vitamin D deficiency, not otherwise specified Peripheral arterial occlusive disease 05/15/2024 Personal history of prostate cancer 05/15/2024 Abdominal aortic aneurysm wi thout rupture, not otherwise specified 05/15/2024 Hypomagnesemia 08/03/2022 Stage 3b chronic kidney disease 05/09/2022 Diabetes mellitus, not otherwise specified 05/09 Hypertension 05/09/2022 Encounters Date Type Department Care Team Description 11/24/2024 Refill [facility] [address] [phone] Hawk Aiken MD 11/15/2024 Orders Only [facility] [address] [address] Hawk Aiken MD Stage 3b chronic kidney disease (HCC); Hypomagnesemia; Hypertension; Diabetes mellitus, not otherwise specified (HCC); Vitamin D deficiency, not otherwise specified; Personal history of prostate cancer; Peripheral arterial occlusive disease (HCC); Abdominal aortic aneurysm without rupture, not otherwise specified (HCC) from Last 3 [...] Care Team (Late st Contact Info) Description 01/22/2025 10:40 AM EST Office Visit [facility] [address] [phone] Hawk Aiken MD [address] [address] Health Maintenance Due Date Last Done Comments [...] age to complete this topic Insurance Medicare [facility] Medicare [facility] Care Teams Piece Goods Packer Relationship Specialty Start Date End Date Cristhian Durán NP [address] [place] [id number] PCP - General Nurse Practitioner 02/16/22
--- OUTSIDE RECORDS SUMMARY | 2024-12-06 11:21 | XMS_ITS | Patient Health Record ---
Author Organization [facility] Address [address] [facility] [place] [address] Care Team Providers Care Hand Box Coverer Name Role Phone Cristhian Garcia Primary Care Provider Unav ailable Black, Estela Unavailable [phone] Allergies No Known Allergies Results Component Value [...] Problem Acquired hammer toe of right foot (5582187009315881 ) Other hammer toe(s) (acquired), right foot (M20.41) Active confirmed Problem Acquired hammer toe of left foot (0263898751192697 ) Other hammer toe(s) (acquired), left foot (M20.42) Active confirmed Problem Polyneuropathy due to type 2 diabetes mellitus (418261444) Type 2 diabetes mellitus with diabetic polyneuropathy (E11.42) Active confirmed Vital Signs Blood pressure diastolic 70 mm Hg 09/05/2024 Height 5 ft 6 in in 09/05/2024 Blood pressure systolic 120 mm Hg 09/05/2024 Weight 145 lbs 09/05/2024 BMI 23.4 kg/m2 09/05/2024 Procedures Procedure Date Ordered Date Performed Result Body Sit e 20001-FOHI SKIN LESIONS, 2 TO 4 03/07/2024 N/A 27700-VOYV NAIL(S) 03/07/2024 N/A 19006-FWMV SKIN LESIONS, 2 TO 4 09/05/2024 N/A 97288-CQEH NAIL(S) 09/05/2024 N/A Encounters Encounter Location Date Provider Diagnosis [facility] [address] [address] 03/07/2024 Estela Black Type 2 diabetes mellitus with diabetic polyneuropathy E11.42 and Xerosis of skin L85.3 [facility] [address] 09/05/2024 Estela Black Type 2 diabetes mellitus [...] Treatment Pending Test Test Name Order Date 14859-IVAA SKIN LESIONS, OVER 4 12/07/19 11 22048-VIXU SKIN LESIONS, OVER 4 06/26/19 13 70396-IASH SKIN LESIONS, OVER 4 01/01/20 13 13326-ACKZ SKIN LESIONS, OVER 4 07/26/19 14 56013-SWEC SKIN LESIONS, OVER 4 01/16/20 14 66493-ZNUT SKIN LESIONS, OVER 4 07/17/19 15 68157-ERVI SKIN LESIONS, 2 TO 4 01/15/20 15 28351-RJCJ SKIN LESIONS, 2 TO 4 12/22/19 12 94569-EYAE SKIN LESIONS, 2 TO 4 06/20/19 12 52848-AGMT SKIN LESIONS, 2 TO 4 07/20/19 16 03399-JXZM SKIN LESIONS, 2 TO 4 01/18/20 16 49179-CGVW SKIN LESIONS, 2 TO 4 07/19/19 17 97071-TNTC SKIN LESIONS, 2 TO 4 01/24/20 17 47577-VVUE SKIN LESIONS, 2 TO 4 01/16/20 18 34515-GASZ SKIN LESIONS, 2 TO 4 08/21/19 19 26307-OVWU SKIN LESIONS, 2 TO 4 02/25/19 20 60773-FLEZ SKIN LESIONS, 2 TO 4 08/08/19 20 50463-JDVJ SKIN LESIONS, 2 TO 4 02/03/20 20 44066-TEOP SKIN LESIONS, 2 TO 4 07/21/19 21 88339-XKXD SKIN LESIONS, 2 TO 4 02/22/19 22 92966-ZGCI SKIN LESIONS, 2 TO 4 08/31/19 22 35936-OUHN SKIN LESIONS, 2 TO 4 02/24/19 23 73219-AOMU SKIN LESIONS, 2 TO 4 08/26/19 23 54630-BUFS SKIN LESIONS, 2 TO 4 03/02/19 24 99975-YUOD SKIN LESIONS, 2 TO 4 08/31/19 24 35022-BMUV SKIN LESIONS, 2 TO 4 03/07/19 25 28236-QUWX SKIN LESIONS, 2 TO 4 09/06/19 25 24909-JKNK NAIL(S) 09/05/2024 26807-ZCMZ NAIL(S) 03/07/2024 77119-MADD NAIL(S) 08/31/2023 04985-JZXM NAIL(S) 03/02/2023 62450-QFXC NAIL(S) 08/25/2022 49135-ZOXG NAIL(S) 02/24/2022 26386-JXXW NAIL(S) 08/30/2021 93975-HNTZ NAIL(S) 02/22/2021 49129-DBYX NAIL(S) 07/20/2020 37258-TDSI NAIL(S) 02/03/2020 30976-HAOA NAIL(S) 08/08/2019 66733-ZRAW NAIL(S) 02/25/2019 38520-XZZC NAIL(S) 08/20/2018 32005-VTXA NAIL(S) 01/15/2018 97307-QMHB NAIL(S) 07/18/2016 24609-TQGI NAIL(S) 01/18/2016 81045-JFBA NAIL(S) 07/20/2015 70975-SVOQ NAIL(S) 12/22/2011 57083-FRLS NAIL(S) 12/06/2010 89217-MCNK NAIL(S) 06/20/2011 71528-CMSB NAIL(S) 06/25/2012 36866-XNEN NAIL(S) 12/31/2012 68772-CCPP NAIL(S) 01/14/2015 56645-ALVM NAIL(S) 07/16/2014 68339-DWYX NAIL(S) 01/15/2014 94575-LERM NAIL(S) 07/25/2013 V2534-NDSWWCCL DYSTROPHIC NAILS ANY # Next Appt Details Provider Name:Estela Bell , 03/06/2025 09:00:00 AM, [address] [place], [address], Insurance Providers Payer Name Payer Address Payer Phone Subscriber Number Group Number Insured Name Patient Relationship to Insured Coverage Start Date Coverage End Date Medicare [employer] [address] [place] [address] [id number] Larry Pichardo Self - patient is the insured [employer] [address] [place] [address] [phone] [id number] Larry Pichardo Self - patient is the insured Medical (General) History Medical History History ICD Code mumps measles hypertension diabetic chicken pox cancer Cholesterol Surgical History Surgery Date(Month/Year) opened artery 08/08/2018 cataract surgery
== END 2024-12-06 10:03 | disposition home or self-care (01) ==
LOC: HO.MRI 10:02
PROVIDERS: PCP Nurse Practitioner Family; Visit Provider Nurse Practitioner Family
DX: R68.89 Other general symptoms and signs (principal)
CPT/HCPCS: 70551

== ENCOUNTER → 2024-12-06 10:26 | Outpatient (BNV) | payer MEDICARE, SELFPAY | PROVIDERS: PCP Nurse Practitioner Family; Visit Provider Radiology Diagnostic Radiology | DX: G31.9 Degenerative disease of nervous system, unspecified (principal); D17.9 Benign lipomatous neoplasm, unspecified | CPT/HCPCS: 70551 ==

== ENCOUNTER 2024-12-11 18:51 | Emergency (ER) | payer MEDICARE, SELFPAY ==
[2024-12-11 19:04] VITALS: BP 125/60; PULSE 74; RESP 18; TEMP 37; O2SAT 97; BMI 20.3
--- NOTE | 2024-12-11 19:04 | ED.GENADULT ---
HPI - General Adult General Chief complaint: Neuro Symptoms/Deficit Stated complaint: Abd MRI? Pcp told him to come in Time Seen by Provider: 12/11/24 20:25 Source: patient and family Limitations: no limitations History of Present Illness ED Provider: Kareen Martinez PA-C HPI narrative: 84-year-old male with a history of hypertension, hyperlipidemia, diabetes, peripheral vascular disease, carotid artery stenosis, prostate cancer, GERD, anemia who presents with a concern for left-sided mastoiditis. Patient developed dizziness, he was seen by his primary care provider who ordered an outpatient MRI, there was concern for left-sided mastoiditis, he was advised to come to the emergency department for assessment. The patient denies pain over the mastoid, redness swelling or warmth. Denies fever. Denies ear pain. His dizziness has resolved. Related Data Home Medications ?Medication ?Instructions ?Recorded ?Confirmed methylcellulose (laxative) 500 mg 500 mg PO DAILY PRN 06/09/22 10/21/24 tablet (Citrucel) aspirin 81 mg tablet,delayed 81 mg PO DAILY 10/18/22 10/21/24 release cholecalciferol (vitamin D3) 25 25 mcg PO DAILY 02/16/23 10/21/24 mcg (1,000 unit) capsule magnesium oxide 250 mg PO 07/16/24 10/21/24 omeprazole 40 mg capsule,delayed 40 mg PO QAM 07/16/24 10/21/24 release Previous Rx's ?Medication ?Instructions ?Recorded fluticasone propionate 50 1 spray intranasal DAILY #16 grams 03/20/22 mcg/actuation nasal spray,suspension blood sugar diagnostic #100 ea 02/22/23 pioglitazone 30 mg tablet 30 mg PO DAILY #90 tabs 06/22/24 dexamethasone 1 mg tablet 1 mg PO ONCE #1 tab 07/04/24 diltiazem HCl 240 mg 240 mg PO DAILY #90 caps 07/08/24 capsule,extended release 24 hr blood sugar diagnostic (OneTouch #200 ea 07/17/24 Ultra Test strips) atorvastatin 40 mg tablet 40 mg PO BEDTIME #90 tabs 08/09/24 trazodone 50 mg tablet 50 mg PO DAILY #90 tabs 09/11/24 ondansetron HCl 4 mg tablet 4 mg PO DAILY 90 days #90 tabs 09/12/24 dexamethasone 4 mg tablet 8 mg (2 x 4 mg) PO ONCE #2 tabs 10/08/24 cyanocobalamin (vitamin B-12) See Rx Instructions IM .Qmonthly 11/11/24 1,000 mcg/mL injection solution 30 days #6 mL fenofibrate 160 mg tablet 160 mg PO DAILY 90 days #90 tabs 11/25/24 metformin 500 mg tablet,extended 500 mg PO BID 90 days #180 tabs 11/25/24 release 24 hr Allergies Allergy/AdvReac Type Severity Reaction Status Date / Time No Known Allergies (No Known Allergy Verified 12/11/24 19:07 Allergies*) Review of Systems Review of Systems: Yes all other systems are reviewed and are negative Constitutional: Constitutional: Denies fatigue, Denies fever(s) and Denies headache(s) ENT: Denies dizziness, Denies otalgia and Denies headache(s) Gastrointestinal: Gastrointestinal: Denies nausea and Denies vomiting Neurologic: Denies dizziness and Denies headache(s) Endocrine: Endocrine: Denies fatigue [facility] Past Medical History Attestation statement: The following information was validated with the patient. Medical History Superior mesenteric artery syndrome Elevated serum creatinine Encounter for annual wellness visit (AWV) in Medicare patient Screening PSA (prostate specific antigen) Plantar callus CKD (chronic kidney disease) stage 3, GFR 30-59 ml/min Acquired hammertoes of both feet Type 2 diabetes mellitus without complication, without long-term current use of insulin Eczema Hearing loss Prostate CA HTN (hypertension) PVD (peripheral vascular disease) Carotid artery stenosis COPD (chronic obstructive pulmonary disease) Dyslipidemia Surgical History History of left-sided carotid endarterectomy Status post aortography with runoff History of atherectomy History of angioplasty H/O colonoscopy with polypectomy History of endarterectomy History of cataract surgery History of cataract surgery Family History Family History Father Medical history non-contributory Mother Medical history non-contributory Son No problems noted. Daughter No problems noted. Daughter No problems noted. Social History Social History Housing: House Alcohol intake: current Patient Tobacco Use Status: Former Tobacco user Years Smoked: quit 25 years ago e-Cigarette/Vaping Use: Never Used Second Hand Smoke Exposure: No Advance Directives: No Advance Directives Information Provided: No service: Yes Current occupational status: retired Cognitive needs: No Hearing needs: No Vision needs: No Physical Exam ED Vital Signs: Vital Signs - 24 hr 12/11/24 19:04 12/11/24 20:39 12/11/24 22:30 Temperature 98.6 F 97.5 F Pulse Rate 74 62 67 Respiratory Rate 18 16 18 Blood Pressure 125/60 130/61 131/61 Pulse Oximetry 97 98 95 Oxygen Delivery Method Room Air Room Air Room Air BMI result Body Mass Index 20.3 Const Other: Alert well-appearing Orientation/consciousness: patient oriented x3 HENMT Other: No bilateral tragal tenderness, bilateral external ear canals are somewhat irritated secondary to cerumen impactions which were evacuated. Bilateral TMs are dull/opaque. The left TM is somewhat more prominent mildly erythematous Eyes Other: No nystagmus Resp Effort & Inspection: normal respiratory effort Cardio Other: Normal peripheral perfusion Skin Other: Warm dry no rash Neuro General: patient oriented x3, gait normal, no focal motor deficits and CN's II-XI intact bilaterally Psych Other: Cooperative Course Course Course Narrative: Time: 11:36 Date: 12/12/24 Provider: Julian Sneed MD attending physician note: 84-year-old male with a history of hypertension, hyperlipidemia, diabetes, peripheral vascular disease, carotid artery stenosis, prostate cancer, GERD, anemia who Evans's advised to go to the emergency department for evaluation of abnormal MRI result and possible acute mastoiditis. Patient had an MRI done on 12/06/2024 for evaluation of dizziness and forgetfulness. MRI impression did reveal bilateral bitemporal parietal lobe atrophy with small-vessel occlusive disease. Impression also noted inflammatory process of the left aerosol based on a hyperintense T2 FLAIR signal in the left mastoid air cell. The patient denied any symptoms to correlate with mastoiditis. He had no fever, chills, decreased hearing, your pain, swelling or tenderness over the left mastoid area of his head. Exam: General: Awake, alert in no distress Head: Normocephalic, atraumatic EENT: PERRL, sclera and conjunctiva are normal, mouth with no erythema or exudates , external ear appears to be normal, no tenderness, redness and swelling over the left mastoid area. Initially the patient had cerumen in both ears this was irrigated out by the physician journeyman operator assistant. Patient has some slight erythema to the left tympanic membrane with a possible effusion but compared to the right. Neck: Supple, no adenopathy Psych: Pleasant, cooperative Medical decision making: The patient's WBC was normal. CMP revealed no significant abnormalities. Lactic acid was normal. Given the patient's normal laboratory evaluation and no physical findings or symptoms to suggest that he has mastoiditis, the hyperintense T2 FLAIR signal left mastoid cell does not correlate with acute mastoiditis. I did discuss this with the patient and the patient's family. I, Dr. Julian Sneed, personally evaluated the patient. I reviewed the physician journeyman operator assistant, Kareen Martinez's documentation and I was available to supervise the management of the patient. I agree with the treatment and plan. Further, I agree all orders as written by physician journeyman operator assistant Kareen Martinez. My note reflects my personal findings on my history and exam Medications Administered Discontinued Medications Generic Name Dose Route Start Last Admin Trade Name Freq PRN Reason Stop Dose Admin Docusate Sodium 100 mg 12/11/24 21:04 12/11/24 21:07 Docusate Sodium 100 Mg/10 Ml Liquid PO 12/11/24 21:05 100 mg ONCE ONE Administration Lidocaine/Epinephrine/Tetracaine 3 ml 12/11/24 21:34 12/11/24 21:37 Lidocaine/Racepinep/Tetracaine 3 Ml Gel.Pf.Luke TOPICAL 12/11/24 21:35 3 ml ONCE ONE Administration Medical Decision Making Medical Decision Making MDM Narrative: 84-year-old male with a history of hypertension, hyperlipidemia, diabetes, peripheral vascular disease, carotid artery stenosis, prostate cancer, GERD, anemia who presents with a concern for left-sided mastoiditis. Patient developed dizziness, he was seen by his primary care provider who ordered an outpatient MRI, there was concern for left-sided mastoiditis, he was advised to come to the emergency department for assessment. The patient denies pain over the mastoid, redness swelling or warmth. Denies fever. Denies ear pain. His dizziness has resolved. Problem: Age, diabetes, vascular disease, carotid artery stenosis History: Per patient and family I have considered the following differential diagnoses: Otitis media, mastoiditis, labyrinthitis, serous otitis, posterior circulation CVA Plan: Screening labs were ordered, they are unremarkable, I reviewed the imaging, I think this is an over-read. He has evidence of serous otitis on exam, he had bilateral cerumen impactions, the left side was extensive. I believe the presence of serous otitis cause the dizziness, but there was no objective evidence of mastoiditis, furthermore, there was no redness swelling or warmth over the mastoid, he is afebrile, he has no pain. This was an incidental finding. Sending the patient with a return precautions. This case was discussed with my attending Dr. Sneed I have independently reviewed the following tests: Labs: No leukocytosis, not anemic, no electrolyte abnormality, lactic 1 Brain MRI: MR/MR head/brain wo con IMPRESSION: No acute brain abnormality. Bifrontal bitemporal parietal lobe atrophy. Probable small vessel occlusive disease. 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 4 cm lipoma, suboccipital fat plane. Inflammatory processes, left mastoid air cells.. Differential Diagnosis Differential Diagnoses: The differential diagnosis associated with the presentation includes See medical decision-making Admission/Observation Consideration of admission/observation: Escalation of care including admission/observation considered Not applicable Lab Data MDM Lab Attestation statement: I reviewed the patient's lab results. 12/11/24 19:18 12/11/24 19:18 Labs: Lab Results 12/11/24 12/11/24 Range/Units 19:18 19:19 WBC 5.0 (4.8-10.8) X10*3/uL RBC 3.73 L (4.60-5.80) X10*6/uL Hgb 11.0 L (14.0-18.0) g/dl Hct 34.9 L (42.0-52.0) % MCV 93.6 (80.0-98.0) fL MCH 29.5 (27.0-33.0) pg MCHC 31.5 (31.0-36.0) g/dl RDW 15.9 (11.0-16.0) % Plt Count 291 D (160-400) X10*3/uL MPV 9.8 (9.4-12.4) fL Immature Gran % (Auto) 0.2 (0.0-0.4) % Neut % (Auto) 70.5 (45-73) % Lymph % (Auto) 20.3 (20-40) % [place] % (Auto) 7.2 (2-11) % Eos % (Auto) 1.4 (0-4) % Baso % (Auto) 0.4 (0-2) % Lymph # (Auto) 1.0 L (1.2-4.9) X10*3/uL [place] # (Auto) 0.4 (0.1-1.2) X10*3/uL Eos # (Auto) 0.1 (0.0-0.4) X10*3/uL Baso # (Auto) 0.0 (0.0-0.2) X10*3/uL Abs Immat Gran (auto) 0.01 (0.00-0.03) X10*3/uL Absolute Neuts (auto) 3.5 (2.0-8.3) x10*3/uL Absolute Nucleated RBC 0.000 (0.0-0.012) X10*3/uL Nucleated RBC % (auto) 0.0 (0.0-0.2) /100WBC Sodium 143 (135-145) mmol/L Potassium 4.3 (3.3-5.1) mmol/L Chloride 114 H (96-108) mmol/L Carbon Dioxide 23 (22-29) mmol/L Anion Gap 10 L (12-20) BUN 23 H (9-16) mg/dL Creatinine 1.17 (0.5-1.4) mg/dL Estim Creat Clear Calc 45.9 Estimated GFR 60 Random Glucose 154 H (60-115) mg/dL Lactic Acid 1.0 (0.5-2.0) mmol/L Calcium 9.4 (8.4-10.2) mg/dL Total Bilirubin 0.5 (0.0-1.0) mg/dL AST 36 (5-37) U/L ALT 21 (0-40) U/L Alkaline Phosphatase 43 (39-117) U/L Total Protein 6.2 L (6.5-8.0) g/dL Albumin 3.8 (3.5-5.0) g/dL Radiology Impression Discussion of test interpretation with radiology: I have reviewed the radiologist's reading. Discharge Plan Discharge Clinical Impression: Bilateral impacted cerumen, Acute serous otitis media of both ears Patient Disposition: Home, Self-Care Instructions: Fluid In The Ear (Serous Otitis Media) (ED) Additional Instructions: We do not have concern that you have mastoiditis based on your exam. You do have fluid within the inner ears that is not infected. You can use khec-rur-phybrdo Zyrtec for the next few weeks, this will alleviate the congestion. You should most certainly follow up with your primary care provider. Return precautions for the onset of left-sided ear pain, fever, redness, swelling and extreme tenderness of the region behind your ear, all would be symptoms that are suggestive of the development of mastoiditis. If you develop any of these symptoms, seek medical attention. Prescriptions: No Action fluticasone propionate 50 mcg/actuation spray,suspension 1 spray intranasal DAILY Qty: 16 2RF (DME) blood sugar diagnostic Strip See Rx Instructions .Route Qty: 100 1RF Rx Instructions: test BS once a day pioglitazone 30 mg tablet 30 mg PO DAILY Qty: 90 1RF diltiazem HCl 240 mg capsule,extended release 24hr 240 mg PO DAILY Qty: 90 1RF (DME) OneTouch Ultra Test Strip See Rx Instructions .Route Qty: 200 1RF Rx Instructions: Use to check blood sugar twice a day atorvastatin 40 mg tablet 40 mg PO BEDTIME Qty: 90 1RF trazodone 50 mg tablet 50 mg PO DAILY Qty: 90 1RF ondansetron HCl 4 mg tablet 4 mg PO DAILY 90 Days Qty: 90 0RF cyanocobalamin (vitamin B-12) 1,000 mcg/mL solution See Rx Instructions IM .Qmonthly 30 Days Qty: 6 2RF Rx Instructions: intramuscularly QMONTHLY; Q monthly metformin 500 mg tablet extended release 24 hr 500 mg PO BID 90 Days Qty: 180 1RF fenofibrate 160 mg tablet 160 mg PO DAILY 90 Days Qty: 90 1RF Citrucel 500 mg tablet 500 mg PO DAILY PRN aspirin 81 mg tablet,delayed release (DR/EC) 81 mg PO DAILY cholecalciferol (vitamin D3) 25 mcg (1,000 unit) capsule 25 mcg PO DAILY dexamethasone 1 mg tablet 1 mg PO ONCE Qty: 1 0RF dexamethasone 4 mg tablet 8 mg PO ONCE Qty: 2 0RF magnesium oxide 250 mg magnesium tablet 250 mg PO omeprazole 40 mg capsule,delayed release(DR/EC) 40 mg PO QAM Interventions: ED Discharge Assessment Last Done: 12/11/24 22:30 Discharge Date/Time: 12/11/24 22:31 Print Language: [place] Island[place]
[2024-12-11 19:27] LABS: MANUAL DIFF FLAG NO
[2024-12-11 19:30] LABS: Hematocrit 34.9 % (42.0-52.0); Hemoglobin 11.0 g/dl (14.0-18.0); Imm Gran Abs Auto 0.01 X10*3/uL (0.00-0.03); Imm Gran Pct Auto 0.2 % (0.0-0.4); Lymphocytes Absolute Auto 1.0 X10*3/uL (1.2-4.9); Mean Corpuscular HGB Conc 31.5 g/dl (31.0-36.0); Mean Corpuscular Hemoglobin 29.5 pg (27.0-33.0); Mean Corpuscular Volume 93.6 fL (80.0-98.0); NRBC Abs Auto 0.000 X10*3/uL (0.0-0.012); NRBC Pct Auto 0.0 /100WBC (0.0-0.2); Platelet Count 291 X10*3/uL (160-400); Red Blood Count 3.73 X10*6/uL (4.60-5.80); White Blood Count 5.0 X10*3/uL (4.8-10.8)
[2024-12-11 19:44] LABS: Alanine Aminotransferase 21 U/L (0-40); Albumin Level 3.8 g/dL (3.5-5.0); Alkaline Phosphatase 43 U/L (39-117); Anion Gap 10 (12-20); Aspartate Amino Transferase 36 U/L (5-37); Blood Urea Nitrogen 23 mg/dL (9-16); Calcium 9.4 mg/dL (8.4-10.2); Carbon Dioxide 23 mmol/L (22-29); Chloride 114 mmol/L (96-108); Creatinine Clr Calc Pharmacy 45.9; Estimated Glomerular Filt Rate 60; Potassium 4.3 mmol/L (3.3-5.1); Sodium 143 mmol/L (135-145); Total Protein 6.2 g/dL (6.5-8.0)
--- OUTSIDE RECORDS SUMMARY | 2024-12-11 20:26 | XMS_ITS | Patient Health Record ---
Author Organization [facility] Address [address] [place] [address] Care Team Providers Care Health And Safety Technician Name Role Phone TOMMY DURÁN Primary Care Provider Kris Tate [phone] Allergies No Known Allergies Results Component Value Reference Range Notes CT abdomen pelvis wo con Reviewed date:12/21/2023 04:34:52 PM Interpretation: Performing Lab: Notes/Report: [address] [address] [address] Scan Report Signed Patient: Kris Coleman MR#: [id number] : 1940 Acct:[id number] Age/Sex: 83 / M ADM Date: 12/15/23 Loc: .CT Attending Dr: Kris Infante MD Ordering Physician: Kris Infante MD Date of Service: 12/15/23 Procedure(s): CT abdomen pelvis wo IV con Accession Number(s): [id number] cc: Tommy Durán [facility]; Kris Infante MD EXAMINATION: CT ABDOMEN AND [...] OV> 12/15/23 1632 DD/ TD/TT: 12/15/23 1335 Registered Associate: Complete Blood Count Auto Di ff Reviewed date:01/04/2024 06:22:26 PM Interpretation: Performing Lab:[facility], [address] [place] [address] Notes/Report: White Blood Count 4.0 4.8-10.8 X10*3/uL [...] Panel Reviewed date:01/04/2024 06:22:38 PM Interpretation: Performing Lab:[address] [address] Notes/Report: Bilirubin Total 0.5 0.0-1.0 mg/dL Bilirubin Direct 0.2 0.0-0.5 mg/dL Aspartate Amino Transferase 39 5-37 U/L Slight Hemolysis.Interpret result with caution. Alanine Aminotransferase 19 0-40 U/L Total Protein 6.2 6.5-8.0 g/dL Albumin Level 3.7 3.5-5.0 g/dL Alkaline Phosphatase 42 39-117 U/L Basic Metabolic Panel Reviewed date:01/04/2024 06:24:42 PM Interpretation: Performing Lab:[address] [address] Notes/Report: Sodium 142 135-145 mmol/L Potassium 4.5 [...] PROFILE Reviewed date:01/04/2024 12:39:25 PM Interpretation: Performing Lab:[address] [address] Notes/Report: Iron 83 45-160 mcg/dL Slight Hemolys is.Interpret result with caution. Total Iron Binding Capacity 356 228-428 mcg/d L Percent Iron Saturation 23 15-50 % Unsaturated Iron Binding 273 Ferritin Reviewed date:01/04/2024 06:24:51 PM Interpretation: Performing Lab:[address] [address] Notes/Report: Ferritin 53 20-250 ng/mL Free T4 (Free Thyroxine) Reviewed date:01/04/2024 06:24:58 PM Interpretation: Performing Lab:[address], [place] [address] Notes/Report: Free T4 (Free Thyroxine) 1.17 0.71-1.85 ng/dL TSH reflex Free T4 Reviewed date:01/04/2024 12:39:16 PM Interpretation: Performing Lab:[address] [address] Notes/Report: TSH reflex Free T4 4.01 0.32-4.0 [...] as directed Orally as directed Active Nasal [place] 0.05 % 4 sprays (2 sprays in [...] W/U Status Risk Notes Problem Epigastric pain (14147097) Epigastric abdominal pain (R10.13) Active confirmed Problem Epigastric pain (92610273) Epigastric pain (R10.13) Active confirmed Problem Perforation and abscess of small intestine co-occurrent and due to diverticulitis (disorder) (319651398) Diverticulitis of small intestine with perforation and abscess without bleeding (K57.00) Active confirmed Problem Diverticulitis of small intestine (65864837) Diverticulitis of small intestine without perforation or abscess without bleeding (K57.12) Active confirmed Problem Nausea (937032657) Nausea (R11.0) Active confir med Problem Anorexia (79476083) Anorexia (R63.0) Active con firmed Problem Early satiety (724698574) Early satiety (R68.81) Active confirmed Problem Anemia (621997592) Anemia (D64.9) Active confir med Problem Gastritis (6622419) Gastritis (K29.70) Active confirmed Problem Chronic fatigue syndrome (34426074) Chronic fatigue (R53.82) Active confirmed Problem Gastroesophageal reflux disease (172494453) GERD (gastroesophageal reflux disease) (K21.9) Active confirmed Problem Decrease in appetite (finding) (64085521) Decreased appetite (R63.0) Active confirmed Vital Signs Blood pressure diastolic 11 mm Hg 04/23/2024 Height 67 in 04/23/2024 Blood pressure systolic 111 mm Hg 04/23/2024 Weight 162 lbs 04/23/2024 BMI 25.37 kg/m2 04/23/2024 Encounters Encounter Location Date Provider Diagnosis [facility] [address] [place] [address] [place] [address] 04/23/2024 Kris Infante Diverticulitis of sm all intestine with perforation and abscess without bleeding K57.00 [facility] [address] [place] [address] 12/21/2023 Kris Infante [facility] [address] [place] [address] 01/04/2024 Kris Infante [facility] [address] [place] [address] 12/02/2024 Kris Infante Assessments Encounter Date Diagnosis [...] Name:Kris Jose Infante , 04/24/2025 10:00:00 AM, [address] [place] [address], [address], [place], [address], Insurance Providers Payer Name Payer Address Payer Phone Subscriber Number Group Number Insured Name Patient Relationship to Insured Coverage Start Date Coverage End Date MEDICARE OF [place] [address] [place] [address] [id number] KRIS BAKER Self - patient is the insured MED[employer] ATT[employer] CLAIMS [address] [place] [address] [phone] [id number] KRIS BAKER Self - patient is the insured Medical (General) History Medical History History ICD Code Kidney stones COPD Prostate cancer NIDDM Hypertension Denies AR,CVA,Lung disease,renal disease Negative colonoscopy > 10 years [...]
--- OUTSIDE RECORDS SUMMARY | 2024-12-11 20:26 | XMS_ITS | Patient Health Record ---
Author Organization [facility] Address [address] [place] [address] Care Team Providers Care Senior Loan Officer Name Role Phone Cristhian Garcia Primary Care Provider Unav ailable Black, Estela Unavailable [phone] Allergies No Known Allergies Results Component Value [...] Problem Acquired hammer toe of right foot (6742337659847181 ) Other hammer toe(s) (acquired), right foot (M20.41) Active confirmed Problem Acquired hammer toe of left foot (7783729292518186 ) Other hammer toe(s) (acquired), left foot (M20.42) Active confirmed Problem Polyneuropathy due to type 2 diabetes mellitus (606597490) Type 2 diabetes mellitus with diabetic polyneuropathy (E11.42) Active confirmed Vital Signs Blood pressure diastolic 70 mm Hg 09/05/2024 Height 5 ft 6 in in 09/05/2024 Blood pressure systolic 120 mm Hg 09/05/2024 Weight 145 lbs 09/05/2024 BMI 23.4 kg/m2 09/05/2024 Procedures Procedure Date Ordered Date Performed Result Body Sit e 80646-EDBF SKIN LESIONS, 2 TO 4 03/07/2024 N/A 96716-SKBE NAIL(S) 03/07/2024 N/A 12141-KKET SKIN LESIONS, 2 TO 4 09/05/2024 N/A 96956-QXCU NAIL(S) 09/05/2024 N/A Encounters Encounter Location Date Provider Diagnosis [facility] [address] [address] 03/07/2024 Estela Black Type 2 diabetes mellitus with diabetic polyneuropathy E11.42 and Xerosis of skin L85.3 [facility] [address] 09/05/2024 Estela Black Type 2 diabetes mellitus [...] Treatment Pending Test Test Name Order Date 46040-PCTQ SKIN LESIONS, OVER 4 12/07/19 11 70428-IEOS SKIN LESIONS, OVER 4 06/26/19 13 08512-HLNS SKIN LESIONS, OVER 4 01/01/20 13 94193-QBVI SKIN LESIONS, OVER 4 07/26/19 14 40445-TPKZ SKIN LESIONS, OVER 4 01/16/20 14 92683-BDRV SKIN LESIONS, OVER 4 07/17/19 15 47001-KQTI SKIN LESIONS, 2 TO 4 01/15/20 15 75591-LZZH SKIN LESIONS, 2 TO 4 12/22/19 12 76115-ENVP SKIN LESIONS, 2 TO 4 06/20/19 12 49884-FISP SKIN LESIONS, 2 TO 4 07/20/19 16 57810-YXQJ SKIN LESIONS, 2 TO 4 01/18/20 16 29807-GMMG SKIN LESIONS, 2 TO 4 07/19/19 17 10124-MNFS SKIN LESIONS, 2 TO 4 01/24/20 17 31631-LRUD SKIN LESIONS, 2 TO 4 01/16/20 18 98611-WFVK SKIN LESIONS, 2 TO 4 08/21/19 19 67724-NZJQ SKIN LESIONS, 2 TO 4 02/25/19 20 47875-UAYT SKIN LESIONS, 2 TO 4 08/08/19 20 18136-RANG SKIN LESIONS, 2 TO 4 02/03/20 20 12542-ZTYL SKIN LESIONS, 2 TO 4 07/21/19 21 97605-NQSS SKIN LESIONS, 2 TO 4 02/22/19 22 80250-JKNO SKIN LESIONS, 2 TO 4 08/31/19 22 24199-DRWQ SKIN LESIONS, 2 TO 4 02/24/19 23 64468-BEYA SKIN LESIONS, 2 TO 4 08/26/19 23 35273-FMCA SKIN LESIONS, 2 TO 4 03/02/19 24 65350-KLNH SKIN LESIONS, 2 TO 4 08/31/19 24 87703-AONT SKIN LESIONS, 2 TO 4 03/07/19 25 77133-HHVW SKIN LESIONS, 2 TO 4 09/06/19 25 75858-SRWM NAIL(S) 09/05/2024 53801-QBKR NAIL(S) 03/07/2024 61072-NBCD NAIL(S) 08/31/2023 18607-OPAH NAIL(S) 03/02/2023 53657-OUED NAIL(S) 08/25/2022 10089-JHVS NAIL(S) 02/24/2022 74438-RKGQ NAIL(S) 08/30/2021 81002-RGYW NAIL(S) 02/22/2021 80330-FJIA NAIL(S) 07/20/2020 27925-QPLN NAIL(S) 02/03/2020 92264-EXOX NAIL(S) 08/08/2019 22498-NMAQ NAIL(S) 02/25/2019 24980-BORX NAIL(S) 08/20/2018 46597-NXRW NAIL(S) 01/15/2018 53713-ZCLP NAIL(S) 07/18/2016 46728-JRTJ NAIL(S) 01/18/2016 82568-GUHM NAIL(S) 07/20/2015 23445-VXIM NAIL(S) 12/22/2011 00747-KGAX NAIL(S) 12/06/2010 89794-PENR NAIL(S) 06/20/2011 38594-GXUP NAIL(S) 06/25/2012 41464-RFRQ NAIL(S) 12/31/2012 66969-SMAW NAIL(S) 01/14/2015 88458-YYTT NAIL(S) 07/16/2014 00924-JPKH NAIL(S) 01/15/2014 16506-LGBA NAIL(S) 07/25/2013 Y0453-WJVWWHKS DYSTROPHIC NAILS ANY # Next Appt Details Provider Name:Estela Bell , 03/06/2025 09:00:00 AM, [address] [place], [address], Insurance Providers Payer Name Payer Address Payer Phone Subscriber Number Group Number Insured Name Patient Relationship to Insured Coverage Start Date Coverage End Date Medicare National [employer]t S[employer] [address] [facility] [place] [address] [id number] Larry Pichardo Self - patient is the insured [employer] Blue Shield [address] [place] [address] [phone] [id number] Larry Pichardo Self - patient is the insured Medical (General) History Medical History History ICD Code mumps measles hypertension diabetic chicken pox cancer Cholesterol Surgical History Surgery Date(Month/Year) opened artery 08/08/2018 cataract surgery
--- OUTSIDE RECORDS SUMMARY | 2024-12-11 20:26 | XMS_ITS | Clinical Summary ---
Author Organization [facility] Address [address] [address] Phone Care Team Providers Care Protective Signal Repairer Name Role Phone Cristhian Durán NP Primary Care Provider [phone] Allergies No known active allergies Medications atorvastatin [...] 11/24/2024 Refill [facility] [address] [phone] Hawk Aiken MD 11/15/2024 Orders Only [facility] [address] [phone] Hawk Aiken MD Stage 3b chronic kidney [...] Office Visit [facility] [address] [phone] Hawk Aiken MD [address] [address] Health Maintenance Due Date Last Done Comments [...] HOSPITAL Medicare [facility] Care Teams Protective Signal Repairer Relationship Specialty Start Date End Date Cristhian Durán NP [address] [place] [address] PCP - General Nurse Practitioner 02/16/22
--- OUTSIDE RECORDS SUMMARY | 2024-12-11 20:26 | XMS_ITS | Clinical Summary ---
Author Organization [facility] Address [address] [place] [address] Care Team Providers Care Jig Grinder Name Role Phone Unavailable Primary Care Provider [...]
[2024-12-11 20:39] VITALS: BP 130/61; PULSE 62; RESP 16; O2SAT 98
[2024-12-11] MEDS: Lidocaine/Racepinep/Tetracaine 3 ML GEL.PF.APP TOPICAL (21:37)
[2024-12-11 22:30] VITALS: BP 131/61; PULSE 67; RESP 18; TEMP 36.4; O2SAT 95
== END 2024-12-11 22:31 | disposition home or self-care (01) ==
PROVIDERS: Student in an Organized Health Care Education/Training Program; Emergency Provider Emergency Medicine Emergency Medical Services; PCP Nurse Practitioner Family
DX: H61.23 Impacted cerumen, bilateral (principal); H65.03 Acute serous otitis media, bilateral
CPT/HCPCS: 36415; 80053; 83605; 85025; 99283; 99284

== ENCOUNTER 2024-12-24 10:57 | Outpatient (AMB) | payer MEDICARE, SELFPAY ==
--- NOTE | 2024-12-24 11:02 | A.OFFVIS_ITS ---
Vital Signs 12/24/24 11:03 Height 5 ft 5 in Weight 151 lb 10.848 oz BMI 25.2 BP 104/62 Blood Pressure Location Lt brachial Position Sitting Pulse 78 Pulse Source Pulse Oximeter Pulse Oximetry (%) 96 Oxygen Delivery Method Room Air Intake Visit Reasons: Adrenal nodule Intake Note: Patient present today for Adrenal Nodule follow up. Supervisor Kosher Dietary Service Required: No Accompanied by: Spouse Allergies No Known Allergies (No Known Allergies*) Allergy (Verified 12/24/24 11:05) Medication List - Last Reconciled 12/24/24 by Larry Moy MD aspirin 81 mg PO DAILY atorvastatin 40 mg PO BEDTIME blood sugar diagnostic test BS once a day blood sugar diagnostic (Digiting Ultra Test strips) Use to check blood sugar twice a day cholecalciferol (vitamin D3) 25 mcg PO DAILY cyanocobalamin (vitamin B-12) intramuscularly QMONTHLY; Q monthly 30 days dexamethasone 8 mg (2 x 4 mg) PO ONCE dexamethasone 1 mg PO ONCE diltiazem HCl CD 240 mg PO DAILY fenofibrate 160 mg PO DAILY 90 days fluticasone propionate 50 mcg/actuation 1 spray intranasal DAILY magnesium oxide 250 mg PO metformin ER 500 mg PO BID 90 days methylcellulose (laxative) (Citrucel) 500 mg PO DAILY PRN omeprazole 40 mg PO QAM ondansetron HCl 4 mg PO DAILY 90 days pioglitazone 30 mg PO DAILY trazodone 50 mg PO DAILY HPI Comments Details: The patient is an 84-year-old male presenting with adrenal nodules. Referred for evaluation after incidental findings reported in a CT scan in 2022, which identified mild hypertrophy on the left adrenal gland. Prior imaging from 2009 and 2013 did not mention adrenal abnormalities. The patient denies experiencing spells related to adrenal hormones, such as sweating, headaches, or palpitations. There are no symptoms reported suggesting Nya syndrome or hormone-related weight changes. He has managed hypertension with Deltiazem and reports occasional lightheadedness. Significant past medical history includes prostate cancer. He denies tuberculosis or recurrent infections. 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 Had CT abdomen/pelvis 05/31/24 for which revealed ADRENAL GLANDS: There is a 1.5 cm adrenal nodule which measures 19.9 HU on the precontrast examination, 72.3 HU on the immediate postcontrast series, and 37.6 HU on the delayed images. This calculates to a 48.0% relative washout and a 66.2% absolute washout, consistent with an adenoma. There is a 1.8 cm left adrenal nodule which measures 14.4 HU on the unenhanced examination, 67.1 HU on the immediate postcontrast series, and 39.9 HU on the delayed images. This calculates to a relative washout of 40.5% and absolute washout of 51.6%. These findings are highly suggestive of an adenoma.. Prior CT dated []revealed. 1.5 cm right adrenal nodule, with washout characteristics consistent with an adenoma. 1.8 cm left adrenal nodule, with washout characteristics highly suggestive of an adenoma. Denies history of spells with headache, flushing, diaphoresis, abdominal pain or diarrhea. Denies any weight gain, frequent infections, easy bruisability, development of violaceous striae. History of HTN, controlled on 1 agents. No history of anticoagulant use. Denies any weight loss, orthostatic symptoms, hypoglycemia. history of prostate CA but no TB. Imaging: Labs: 24 hour urine for metanephrines and normetanephrines were normal. However, cortisol after dexamethasone was abnormal but it is not clear with the patient took the dexamethasone The patient is an 84-year-old male presenting with the evaluation of potential Nya syndrome due to abnormal cortisol levels. 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 The patient has a history of diabetes mellitus and hypertension, which could be exacerbated by elevated cortisol levels. The patient reports no overt symptoms of Irving syndrome, such as weight gain, facial puffiness, or purple striae, but acknowledges thin skin and bruising, which could be related. There is a family history of similar skin issues, but it is unclear if they are related to the current condition. The patient has not undergone a bone density test to assess for osteoporosis, which is a concern given the potential diagnosis of Irving syndrome. This showed low bone mass not osteoporosis [facility] Medical History Superior mesenteric artery syndrome Elevated serum creatinine Encounter for annual wellness visit (AWV) in Medicare patient Screening PSA (prostate specific antigen) Plantar callus CKD (chronic kidney disease) stage 3, GFR 30-59 ml/min Acquired hammertoes of both feet Type 2 diabetes mellitus without complication, without long-term current use of insulin Eczema Hearing loss Prostate CA HTN (hypertension) PVD (peripheral vascular disease) Carotid artery stenosis COPD (chronic obstructive pulmonary disease) Dyslipidemia Surgical History History of left-sided carotid endarterectomy Status post aortography with runoff History of atherectomy History of angioplasty H/O colonoscopy with polypectomy History of endarterectomy History of cataract surgery History of cataract surgery Family History Father Medical history non-contributory Mother Medical history non-contributory Son No problems noted. Daughter No problems noted. Daughter No problems noted. Social History Housing: House Alcohol intake: current Patient Tobacco Use Status: Former Tobacco user Years Smoked: quit 25 years ago e-Cigarette/Vaping Use: Never Used Second Hand Smoke Exposure: No service: Yes Current occupational status: retired Cognitive needs: No Hearing needs: No Vision needs: No Physical Exam Vital Signs: Last Vital Signs Pulse 78 12/24/24 11:03 BP 104/62 12/24/24 11:03 Pulse Ox 96 12/24/24 11:03 Oxygen Delivery Method Room Air 12/24/24 11:03 BMI result Body Mass Index 25.2 Const Other: There was no cushingoid appearance. Thyroid gland is normal size weighs about 15 g. Lungs are clear to auscultation. Heart is S1-S2. Abdominal exam is benign Assessment & Plan Assessment & Plan (1) Adrenal nodule: Code(s): E27.8 - Other specified disorders of adrenal gland Category: Medical Plan: This is an 84-year-old white male with a history of bilateral adrenal nodules with characteristics of both nodules appear to be benign based on adrenal washout protocol. 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 to see if it is suppressed as well as to get a 24 hour urine for free cortisol and creatinine to quantitate the degree of hypercortisolism. Both nodules are about the same size 1 being 1.5 cm in 1 being 1.8 cm. Currently the diabetes seems well controlled it is no osteoporosis so observation may be warranted. If comorbid conditions of diabetes or osteoporosis become worse, consideration could be given to unilateral adrenalectomy of the 1.8 cm nodule. Considering patient's age, this may not be the best option at present Orders: Orders Adrenocorticotropic Hormone Today E27.8 - Other specified disorders of adrenal gland Creatinine, 24 Hr Group Today E27.8 - Other specified disorders of adrenal gland Cortisol, Free 24Hr Urine Today E27.8 - Other specified disorders of adrenal gland Coding Level of Care Code Est Pt Level 3 (79209) Diagnoses Adrenal nodule E27.8
[2024-12-24 11:03] VITALS: BP 104/62; PULSE 78; O2SAT 96; BMI 25.2
--- OUTSIDE RECORDS SUMMARY | 2024-12-24 13:07 | XMS_ITS | Clinical Summary ---
Author Organization [facility] Address [address] [place] [address] Care Team Providers Care Cryptozoologist Name Role Phone Unavailable Primary Care Provider [...]
--- OUTSIDE RECORDS SUMMARY | 2024-12-24 13:07 | XMS_ITS | Patient Health Record ---
[facility] Address [address] [facility] [place] [address] Care Team Providers Care Steam Fitter Supervisor Name Role Phone Cristhian Garcia Primary Care Provider Unav ailable Black, Estela Unavailable [phone] Allergies No Known Allergies Results Component Value [...] Problem Acquired hammer toe of right foot (0642701283255598 ) Other hammer toe(s) (acquired), right foot (M20.41) Active confirmed Problem Acquired hammer toe of left foot (8282916511559386 ) Other hammer toe(s) (acquired), left foot (M20.42) Active confirmed Problem Polyneuropathy due to type 2 diabetes mellitus (665621321) Type 2 diabetes mellitus with diabetic polyneuropathy (E11.42) Active confirmed Vital Signs Blood pressure diastolic 70 mm Hg 09/05/2024 Height 5 ft 6 in in 09/05/2024 Blood pressure systolic 120 mm Hg 09/05/2024 Weight 145 lbs 09/05/2024 BMI 23.4 kg/m2 09/05/2024 Procedures Procedure Date Ordered Date Performed Result Body Sit e 58976-IPBR SKIN LESIONS, 2 TO 4 03/07/2024 N/A 73498-CUFS NAIL(S) 03/07/2024 N/A 12437-KIMJ SKIN LESIONS, 2 TO 4 09/05/2024 N/A 04027-TZGH NAIL(S) 09/05/2024 N/A Encounters Encounter Location Date Provider Diagnosis [facility] [address] [address] 03/07/2024 Estela Black Type 2 diabetes mellitus with diabetic polyneuropathy E11.42 and Xerosis of skin L85.[address] [facility] [address] 09/05/2024 Estela Black Type 2 diabetes mellitus [...] Treatment Pending Test Test Name Order Date 66237-MISU SKIN LESIONS, OVER 4 12/07/19 11 39766-YPFA SKIN LESIONS, OVER 4 06/26/19 13 87149-UGBG SKIN LESIONS, OVER 4 01/01/20 13 35914-QOZX SKIN LESIONS, OVER 4 07/26/19 14 73380-PYZF SKIN LESIONS, OVER 4 01/16/20 14 97772-TGBF SKIN LESIONS, OVER 4 07/17/19 15 47518-BEWO SKIN LESIONS, 2 TO 4 01/15/20 15 84088-KHDK SKIN LESIONS, 2 TO 4 12/22/19 12 22698-VNZS SKIN LESIONS, 2 TO 4 06/20/19 12 71394-ZWZE SKIN LESIONS, 2 TO 4 07/20/19 16 68841-FXQN SKIN LESIONS, 2 TO 4 01/18/20 16 65408-OPKR SKIN LESIONS, 2 TO 4 07/19/19 17 21063-SEWZ SKIN LESIONS, 2 TO 4 01/24/20 17 78925-FENS SKIN LESIONS, 2 TO 4 01/16/20 18 66121-WLUG SKIN LESIONS, 2 TO 4 08/21/19 19 42453-QLMI SKIN LESIONS, 2 TO 4 02/25/19 20 77040-KUPB SKIN LESIONS, 2 TO 4 08/08/19 20 42788-EZNP SKIN LESIONS, 2 TO 4 02/03/20 20 70716-GXRM SKIN LESIONS, 2 TO 4 07/21/19 21 64168-YTPE SKIN LESIONS, 2 TO 4 02/22/19 22 36649-MMRN SKIN LESIONS, 2 TO 4 08/31/19 22 65968-YYXF SKIN LESIONS, 2 TO 4 02/24/19 23 44602-USRS SKIN LESIONS, 2 TO 4 08/26/19 23 64572-GRDL SKIN LESIONS, 2 TO 4 03/02/19 24 96592-UOKV SKIN LESIONS, 2 TO 4 08/31/19 24 52741-FYWV SKIN LESIONS, 2 TO 4 03/07/19 25 87095-GZES SKIN LESIONS, 2 TO 4 09/06/19 25 00942-ENHL NAIL(S) 09/05/2024 76650-XJUI NAIL(S) 03/07/2024 21411-ZJWD NAIL(S) 08/31/2023 99707-FHGN NAIL(S) 03/02/2023 65142-PWAU NAIL(S) 08/25/2022 04622-ZDWN NAIL(S) 02/24/2022 23413-EHQX NAIL(S) 08/30/2021 14011-ELZN NAIL(S) 02/22/2021 13248-NYID NAIL(S) 07/20/2020 84051-ZDIZ NAIL(S) 02/03/2020 98978-QZQT NAIL(S) 08/08/2019 84835-MWQE NAIL(S) 02/25/2019 89032-KZCG NAIL(S) 08/20/2018 53953-BCHV NAIL(S) 01/15/2018 07468-TOON NAIL(S) 07/18/2016 89679-PXFR NAIL(S) 01/18/2016 47018-NRWQ NAIL(S) 07/20/2015 21097-GFZU NAIL(S) 12/22/2011 34748-XZQX NAIL(S) 12/06/2010 58851-DXRU NAIL(S) 06/20/2011 86090-GCOQ NAIL(S) 06/25/2012 86130-AVKF NAIL(S) 12/31/2012 27889-HZQO NAIL(S) 01/14/2015 52085-JQEH NAIL(S) 07/16/2014 66069-WNCG NAIL(S) 01/15/2014 60868-GRLL NAIL(S) 07/25/2013 G3316-HJSOVRNL DYSTROPHIC NAILS ANY # Next Appt Details Provider Name:Estela Bell , 03/06/2025 09:00:00 AM, [address] [place], [address], Insurance Providers Payer Name Payer Address Payer Phone Subscriber Number Group Number Insured Name Patient Relationship to Insured Coverage Start Date Coverage End Date Medicare National Govt S[employer] [address] [facility] [place] [address] [id number] Larry Pichardo Self - patient is the insured [employer] Blue [employer] [address] [place] [address] [id number] Larry Pichardo Self - patient is the insured Medical (General) History Medical History History ICD Code mumps measles hypertension diabetic chicken pox cancer Cholesterol Surgical History Surgery Date(Month/Year) opened artery 08/08/2018 cataract surgery
--- OUTSIDE RECORDS SUMMARY | 2024-12-24 13:07 | XMS_ITS | Patient Health Record ---
Author Organization [facility] Address [address] [place] [address] Care Team Providers Care Pulmonary Disease Specialist Name Role Phone TOMMY CHAPIN Primary Care Provider Kris Tate Unavailable [phone] Allergies No Known Allergies Results Component Value Reference Range Notes Complete Blood Count Auto Di ff Reviewed date:01/04/2024 06:22:26 PM Interpretation: Performing Lab:[facility], [address] [place] [address] Notes/Report: White Blood Count 4.0 4.8-10.8 X10*3/uL [...] Panel Reviewed date:01/04/2024 06:22:38 PM Interpretation: Performing Lab:[address] [address] Notes/Report: Bilirubin Total 0.5 0.0-1.0 mg/dL Bilirubin Direct 0.2 0.0-0.5 mg/dL Aspartate Amino Transferase 39 5-37 U/L Slight Hemolysis.Interpret result with caution. Alanine Aminotransferase 19 0-40 U/L Total Protein 6.2 6.5-8.0 g/dL Albumin Level 3.7 3.5-5.0 g/dL Alkaline Phosphatase 42 39-117 U/L Basic Metabolic Panel Reviewed date:01/04/2024 06:24:42 PM Interpretation: Performing Lab:[address] [address] Notes/Report: Sodium 142 135-145 mmol/L Potassium 4.5 [...] PROFILE Reviewed date:01/04/2024 12:39:25 PM Interpretation: Performing Lab:[address], [place] [address] Notes/Report: Iron 83 45-160 mcg/dL Slight Hemolys is.Interpret result with caution. Total Iron Binding Capacity 356 228-428 mcg/d L Percent Iron Saturation 23 15-50 % Unsaturated Iron Binding 273 Ferritin Reviewed date:01/04/2024 06:24:51 PM Interpretation: Performing Lab:[address] [address] Notes/Report: Ferritin 53 20-250 ng/mL Free T4 (Free Thyroxine) Reviewed date:01/04/2024 06:24:58 PM Interpretation: Performing Lab:[address] [address] Notes/Report: Free T4 (Free Thyroxine) 1.17 0.71-1.85 ng/dL TSH reflex Free T4 Reviewed date:01/04/2024 12:39:16 PM Interpretation: Performing Lab:[facility], [address] [place] [address] Notes/Report: TSH reflex Free T4 4.01 0.32-4.0 [...] as directed Orally as directed Active Nasal Downs 0.05 % 4 sprays (2 sprays in [...] W/U Status Risk Notes Problem Epigastric pain (70983647) Epigastric abdominal pain (R10.13) Active confirmed Problem Epigastric pain (28379036) Epigastric pain (R10.13) Active confirmed Problem Perforation and abscess of small intestine co-occurrent and due to diverticulitis (disorder) (009864716) Diverticulitis of small intestine with perforation and abscess without bleeding (K57.00) Active confirmed Problem Diverticulitis of small intestine (05157715) Diverticulitis of small intestine without perforation or abscess without bleeding (K57.12) Active confirmed Problem Nausea (294920187) Nausea (R11.0) Active confir med Problem Anorexia (79516733) Anorexia (R63.0) Active con firmed Problem Early satiety (709328156) Early satiety (R68.81) Active confirmed Problem Anemia (939405041) Anemia (D64.9) Active confir med Problem Gastritis (6734346) Gastritis (K29.70) Active confirmed Problem Chronic fatigue syndrome (43321659) Chronic fatigue (R53.82) Active confirmed Problem Gastroesophageal reflux disease (626181141) GERD (gastroesophageal reflux disease) (K21.9) Active confirmed Problem Decrease in appetite (finding) (41797928) Decreased appetite (R63.0) Active confirmed Vital Signs Blood pressure diastolic 11 mm Hg 04/23/2024 Height 67 in 04/23/2024 Blood pressure systolic 111 mm Hg 04/23/2024 Weight 162 lbs 04/23/2024 BMI 25.37 kg/m2 04/23/2024 Encounters Encounter Location Date Provider Diagnosis [facility] [address] [place] [phone] 04/23/2024 Kris Infante Diverticulitis of sm all intestine with perforation and abscess without bleeding K57.00 [facility] [address] [place] [phone] 01/04/2024 Kris Infante [facility] [address] [place] [phone] 12/02/2024 Kris Infante Assessments Encounter Date Diagnosis [...] Provider Name:Kris Infante , 04/24/2025 10:00:00 AM, [address] [place] [address], [facility] [address], [place], [address], Insurance Providers Payer Name Payer Address Payer Phone Subscriber Number Group Number Insured Name Patient Relationship to Insured Coverage Start Date Coverage End Date MEDICARE OF [place] [address] [place] [address] [id number] KRIS BAKER - patient is the insured MED[employer] ATT[employer] CLAIMS [address] [place] [phone] [id number] DESORMIE R, KRIS Self - patient is the insured Medical (General) History Medical History History ICD Code Kidney stones COPD Prostate cancer NIDDM Hypertension Denies [place],CVA,Lung disease,renal disease Negative colonoscopy > 10 years [...] MARSHAL-followed by vascular surgery, Dr. Soler, at [facility]. He felt this presented more of a chronic issue as opposed to an acute problem. Inflammation and small absce sses in the region of the small bowel seen on the CT scan during the workup for the abdominal pain in April of 2023. This was treated with IV and subsequent oral antibiotics at [facility]. There was the finding of multiple small [...]
== END 2024-12-24 11:35 | disposition home or self-care (01) ==
LOC: HO.ENCR 10:58
PROVIDERS: PCP Nurse Practitioner Family; Visit Provider Internal Medicine Endocrinology, Diabetes & Metabolism
DX: E27.8 Other specified disorders of adrenal gland (principal)
CPT/HCPCS: 99213

== ENCOUNTER → 2024-12-24 10:57 | Outpatient (BNVA) | payer MEDICARE, SELFPAY | PROVIDERS: PCP Nurse Practitioner Family; Visit Provider Internal Medicine Endocrinology, Diabetes & Metabolism | DX: E11.9 Type 2 diabetes mellitus without complications (principal); E27.8 Other specified disorders of adrenal gland; M81.0 Age-related osteoporosis without current pathological fracture | CPT/HCPCS: 99212 ==

== ENCOUNTER 2024-12-26 08:38 | Outpatient (AMB) | payer MEDICARE, SELFPAY ==
--- NOTE | 2024-12-26 08:44 | AM.OFFVISNUR ---
Intake Visit Reasons: B12 Shot Intake Note: Pt arrived for monthly B-12 injection Allergies No Known Allergies (No Known Allergies*) Allergy (Verified 12/24/24 11:05) Office Meds cyanocobalamin (vitamin B-12) 1,000 mcg/mL injection solution Performing Provider: KLAUDIA Morales Performing Location: [facility] Administered by: Cici Van RN on 12/26/24 08:46 Dose Route Admin Location Dispensed Lot Number Expiration Date [facility] Healthcare Management Consultant 1,000 mcg IM left deltoid 1 mL [id number] 05/14/26 29016-582-46 [employer] Total Dispensed Waste 1 mL 0 % Comments: Pt supplied Assessment & Plan Assessment & Plan Orders: Orders AMB Vitamin B12 Injection Patient Supplied Today E53.8 - Deficiency of other specified B group vitamins Coding
--- OUTSIDE RECORDS SUMMARY | 2024-12-26 08:57 | XMS_ITS | Clinical Summary ---
Author Organization [facility] Address [address] [address] Phone Care Team Providers Care Unarmed Security Guard Name Role Phone Cristhian Durán NP Primary Care Provider [phone] Allergies No known active allergies Medications atorvastatin [...] 11/24/2024 Refill [facility] [address] [phone] Hawk Aiken MD 11/15/2024 Orders Only [facility] [address] [address] Hawk Aiken MD Stage 3b chronic kidney [...] Office Visit [facility] [address] [phone] Hawk Aiken MD [address] [address] Health Maintenance Due Date Last Done Comments [...] age to complete this topic Insurance Medicare [facility] Medicare [facility] Care Teams Unarmed Security Guard Relationship Specialty Start Date End Date Cristhian Durán NP [address] [place] [address] PCP - General Nurse Practitioner 02/16/22
--- OUTSIDE RECORDS SUMMARY | 2024-12-26 08:57 | XMS_ITS | Patient Health Record ---
Author Organization [facility] Address [address] [facility] [place] [address] Care Team Providers Care Tobacco Conditioner Name Role Phone Cristhian Garcia Primary Care Provider Unav ailable Black, Estela Unavailable [phone] Allergies No Known Allergies Results Component Value [...] Problem Acquired hammer toe of right foot (9470046468192185 ) Other hammer toe(s) (acquired), right foot (M20.41) Active confirmed Problem Acquired hammer toe of left foot (5285884401526868 ) Other hammer toe(s) (acquired), left foot (M20.42) Active confirmed Problem Polyneuropathy due to type 2 diabetes mellitus (058433445) Type 2 diabetes mellitus with diabetic polyneuropathy (E11.42) Active confirmed Vital Signs Blood pressure diastolic 70 mm Hg 09/05/2024 Height 5 ft 6 in in 09/05/2024 Blood pressure systolic 120 mm Hg 09/05/2024 Weight 145 lbs 09/05/2024 BMI 23.4 kg/m2 09/05/2024 Procedures Procedure Date Ordered Date Performed Result Body Sit e 31689-OJXZ SKIN LESIONS, 2 TO 4 03/07/2024 N/A 31801-YKJU NAIL(S) 03/07/2024 N/A 47107-TSST SKIN LESIONS, 2 TO 4 09/05/2024 N/A 67231-KCPS NAIL(S) 09/05/2024 N/A Encounters Encounter Location Date Provider Diagnosis [facility] [address] [address] 03/07/2024 Estela Black Type 2 diabetes mellitus with diabetic polyneuropathy E11.42 and Xerosis of skin L85.3 [facility] [address] 09/05/2024 Estela Black Type 2 diabetes mellitus [...] Treatment Pending Test Test Name Order Date 20683-YEFR SKIN LESIONS, OVER 4 12/07/19 11 00516-WQVR SKIN LESIONS, OVER 4 06/26/19 13 83554-SPOJ SKIN LESIONS, OVER 4 01/01/20 13 40175-XQVR SKIN LESIONS, OVER 4 07/26/19 14 85709-ONTV SKIN LESIONS, OVER 4 01/16/20 14 21992-EJHI SKIN LESIONS, OVER 4 07/17/19 15 89602-YUAI SKIN LESIONS, 2 TO 4 01/15/20 15 31011-AFGW SKIN LESIONS, 2 TO 4 12/22/19 12 53107-HJZH SKIN LESIONS, 2 TO 4 06/20/19 12 34594-NXNB SKIN LESIONS, 2 TO 4 07/20/19 16 69524-GMSI SKIN LESIONS, 2 TO 4 01/18/20 16 12455-MKQG SKIN LESIONS, 2 TO 4 07/19/19 17 79456-BRYY SKIN LESIONS, 2 TO 4 01/24/20 17 81991-MQOO SKIN LESIONS, 2 TO 4 01/16/20 18 64438-ZQRW SKIN LESIONS, 2 TO 4 08/21/19 19 62102-XLKZ SKIN LESIONS, 2 TO 4 02/25/19 20 20683-OPQO SKIN LESIONS, 2 TO 4 08/08/19 20 82516-MJYD SKIN LESIONS, 2 TO 4 02/03/20 20 00645-IXXL SKIN LESIONS, 2 TO 4 07/21/19 21 92213-DCNM SKIN LESIONS, 2 TO 4 02/22/19 22 26539-LWLI SKIN LESIONS, 2 TO 4 08/31/19 22 54317-CMUG SKIN LESIONS, 2 TO 4 02/24/19 23 43399-QLFF SKIN LESIONS, 2 TO 4 08/26/19 23 52928-DGDY SKIN LESIONS, 2 TO 4 03/02/19 24 36533-YEFW SKIN LESIONS, 2 TO 4 08/31/19 24 92034-GQMM SKIN LESIONS, 2 TO 4 03/07/19 25 22793-NZIE SKIN LESIONS, 2 TO 4 09/06/19 25 67581-RZDI NAIL(S) 09/05/2024 27895-UQDH NAIL(S) 03/07/2024 35618-GYWS NAIL(S) 08/31/2023 18955-YIFN NAIL(S) 03/02/2023 74882-QGAY NAIL(S) 08/25/2022 75438-QXBW NAIL(S) 02/24/2022 11152-TKBG NAIL(S) 08/30/2021 62168-ZNJK NAIL(S) 02/22/2021 82590-VQWA NAIL(S) 07/20/2020 95457-MGJI NAIL(S) 02/03/2020 12697-MTYF NAIL(S) 08/08/2019 43557-CEOF NAIL(S) 02/25/2019 78247-VDUK NAIL(S) 08/20/2018 44971-BGJL NAIL(S) 01/15/2018 84053-DQTN NAIL(S) 07/18/2016 31436-FFST NAIL(S) 01/18/2016 47889-OIZE NAIL(S) 07/20/2015 64514-WHNV NAIL(S) 12/22/2011 84088-IAYK NAIL(S) 12/06/2010 67313-KPWA NAIL(S) 06/20/2011 00916-ZVMY NAIL(S) 06/25/2012 51499-ELFI NAIL(S) 12/31/2012 38680-YKBG NAIL(S) 01/14/2015 03292-NQJY NAIL(S) 07/16/2014 45410-HEAO NAIL(S) 01/15/2014 53940-JJQD NAIL(S) 07/25/2013 G0879-NIHNOWPO DYSTROPHIC NAILS ANY # Next Appt Details Provider Name:Estela Bell , 03/06/2025 09:00:00 AM, [address] [place], [address], Insurance Providers Payer Name Payer Address Payer Phone Subscriber Number Group Number Insured Name Patient Relationship to Insured Coverage Start Date Coverage End Date Medicare National Govt Svcs Inc [address] [facility] [place] [address] [id number] Larry Pichardo Self - patient is the insured [employer] [address] [place] [address] [id number] Larry Pichardo Self - patient is the insured Medical (General) History Medical History History ICD Code mumps measles hypertension diabetic chicken pox cancer Cholesterol Surgical History Surgery Date(Month/Year) opened artery 08/08/2018 cataract surgery
--- OUTSIDE RECORDS SUMMARY | 2024-12-26 08:57 | XMS_ITS | Patient Health Record ---
Author Organization [facility] Address [address] [place] [address] Care Team Providers Care Cat Operator Name Role Phone TOMMY CHAPIN Primary Care Provider Kris Tate Unavailable [phone] Allergies No Known Allergies Results Component Value Reference Range Notes Complete Blood Count Auto Di ff Reviewed date:01/04/2024 06:22:26 PM Interpretation: Performing Lab:[facility], [address] [place] [phone] Notes/Report: White Blood Count 4.0 4.8-10.8 X10*3/uL [...] Panel Reviewed date:01/04/2024 06:22:38 PM Interpretation: Performing Lab:[address] [address] Notes/Report: Bilirubin Total 0.5 0.0-1.0 mg/dL Bilirubin Direct 0.2 0.0-0.5 mg/dL Aspartate Amino Transferase 39 5-37 U/L Slight Hemolysis.Interpret result with caution. Alanine Aminotransferase 19 0-40 U/L Total Protein 6.2 6.5-8.0 g/dL Albumin Level 3.7 3.5-5.0 g/dL Alkaline Phosphatase 42 39-117 U/L Basic Metabolic Panel Reviewed date:01/04/2024 06:24:42 PM Interpretation: Performing Lab:[address] [phone] Notes/Report: Sodium 142 135-145 mmol/L Potassium 4.5 [...] PROFILE Reviewed date:01/04/2024 12:39:25 PM Interpretation: Performing Lab:[address], [place] [address] Notes/Report: Iron 83 45-160 mcg/dL Slight Hemolys is.Interpret result with caution. Total Iron Binding Capacity 356 228-428 mcg/d L Percent Iron Saturation 23 15-50 % Unsaturated Iron Binding 273 Ferritin Reviewed date:01/04/2024 06:24:51 PM Interpretation: Performing Lab:[address] [address] Notes/Report: Ferritin 53 20-250 ng/mL Free T4 (Free Thyroxine) Reviewed date:01/04/2024 06:24:58 PM Interpretation: Performing Lab:[address] [address] Notes/Report: Free T4 (Free Thyroxine) 1.17 0.71-1.85 ng/dL TSH reflex Free T4 Reviewed date:01/04/2024 12:39:16 PM Interpretation: Performing Lab:[facility], [address] [place] [phone] Notes/Report: TSH reflex Free T4 4.01 0.32-4.0 [...] as directed Orally as directed Active Nasal [place] 0.05 % 4 sprays (2 sprays in [...] W/U Status Risk Notes Problem Epigastric pain (83986959) Epigastric abdominal pain (R10.13) Active confirmed Problem Epigastric pain (71985616) Epigastric pain (R10.13) Active confirmed Problem Perforation and abscess of small intestine co-occurrent and due to diverticulitis (disorder) (765479610) Diverticulitis of small intestine with perforation and abscess without bleeding (K57.00) Active confirmed Problem Diverticulitis of small intestine (57191118) Diverticulitis of small intestine without perforation or abscess without bleeding (K57.12) Active confirmed Problem Nausea (039027420) Nausea (R11.0) Active confir med Problem Anorexia (51327320) Anorexia (R63.0) Active con firmed Problem Early satiety (589589912) Early satiety (R68.81) Active confirmed Problem Anemia (401986322) Anemia (D64.9) Active confir med Problem Gastritis (8719496) Gastritis (K29.70) Active confirmed Problem Chronic fatigue syndrome (02855221) Chronic fatigue (R53.82) Active confirmed Problem Gastroesophageal reflux disease (030360975) GERD (gastroesophageal reflux disease) (K21.9) Active confirmed Problem Decrease in appetite (finding) (71989398) Decreased appetite (R63.0) Active confirmed Vital Signs Blood pressure diastolic 11 mm Hg 04/23/2024 Height 67 in 04/23/2024 Blood pressure systolic 111 mm Hg 04/23/2024 Weight 162 lbs 04/23/2024 BMI 25.37 kg/m2 04/23/2024 Encounters Encounter Location Date Provider Diagnosis [facility] [address] [place] [phone] 04/23/2024 Kris Infante Diverticulitis of sm all intestine with perforation and abscess without bleeding K57.[address] [facility] [address] [place] [address] 01/04/2024 Kris Inf[address] [facility] [address] [place] [address] 12/02/2024 Kris Infante Assessments Encounter Date Diagnosis [...] Provider Name:Kris Infante , 04/24/2025 10:00:00 AM, [address] [place] [address], [facility] [address], [place], [address], Insurance Providers Payer Name Payer Address Payer Phone Subscriber Number Group Number Insured Name Patient Relationship to Insured Coverage Start Date Coverage End Date MEDICARE OF [place] [address] [place] [address] [id number] KRIS BAKER - patient is the insured MED[employer] ATTN CLAIMS [address] [place] [address] [id number] DESORMIE R, KRIS Self - patient is the insured Medical (General) History Medical History History ICD Code Kidney stones COPD Prostate cancer NIDDM Hypertension Denies [place],CVA,Lung disease,renal disease Negative colonoscopy > 10 years [...] by vascular surgery, Dr. Soler, at [facility]. He felt this presented more of a chronic issue as opposed to an acute problem. Inflammation and small absce sses in the region of the small bowel seen on the CT scan during the workup for the abdominal pain in April of 2023. This was treated with IV and subsequent oral antibiotics at [facility]. There was the finding of multiple [...]
--- OUTSIDE RECORDS SUMMARY | 2024-12-26 08:57 | XMS_ITS | Clinical Summary ---
Author Organization [facility] Address [address] [place] [address] Care Team Providers Care Rn Discharge Name Role Phone Unavailable Primary Care Provider [...]
== END 2024-12-26 09:12 | disposition home or self-care (01) ==
LOC: HO.HMCC 08:38
PROVIDERS: PCP Nurse Practitioner Family; Visit Provider Nurse Practitioner Family
DX: E53.8 Deficiency of other specified B group vitamins (principal)

== ENCOUNTER → 2024-12-26 08:38 | Outpatient (BNVA) | payer MEDICARE, SELFPAY | PROVIDERS: PCP Nurse Practitioner Family; Visit Provider Nurse Practitioner Family | DX: E53.8 Deficiency of other specified B group vitamins (principal) | CPT/HCPCS: 96372; J3420 ==

== ENCOUNTER 2025-01-02 07:00 | Outpatient (REF) | payer MEDICARE, SELFPAY ==
[2025-01-02 15:04] LABS: Creatinine, mg/dL 55.05
[2025-01-02 15:06] LABS: Total Volume 24 Hour Urine 700 mL
== END 2025-01-02 07:01 | disposition home or self-care (01) ==
LOC: HO.HMGCLNP 07:00
PROVIDERS: PCP Nurse Practitioner Family; Visit Provider Internal Medicine Endocrinology, Diabetes & Metabolism
DX: Z13.89 Encounter for screening for other disorder (principal)
CPT/HCPCS: 82530; 82570

== ENCOUNTER 2025-01-02 09:54 | Outpatient (REF) | payer MEDICARE, SELFPAY ==
--- NOTE | ~2025-01-02 | US_ITS ---
CLINICAL HISTORY: I65.23 - Occlusion and stenosis of bilateral carotid arteries US bilateral carotid duplex Comparison: US/SR - US CAROTID DOPPLER BILATERAL - 12/18/23 09:55 EST US/SR - US CAROTID DOPPLER BILATERAL - 08/01/22 10:33 EDT Findings: No significant plaque within the common carotid arteries. Ieoj-ra-lrlmgupm right mild left plaque within the carotid bulbs. Tacs-uy-defjtrwm right mild left plaque within the internal carotid arteries . Waveforms are normal morphology. Peak systolic and end-diastolic velocities: Right CCA: 64.5 cm/s Right ICA: 174.0 cm/s previously 267 cm/sec Right ICA EDV: 9.4 cm/sec Right ECA: Unremarkable Right vertebral artery flow antegrade. Left CCA: 91.9 cm/s Left ICA: 92.0 cm/s Left ICA EDV: 15.8 cm/sec Left ECA: Unremarkable Left vertebral artery flow antegrade. Criteria for grading carotid stenosis Stenosis % ICA PSV cm/s ICA/CCA PSV ratio ICA EDV 0-50% <125 <2.0 <40 50-69% 125-230 2.0-4.0 40-100 70% + > 230 >4.0 >100 Impression: 1. Improved velocities on the right with 50-79% stenosis. No hemodynamically significant stenosis on the left (0-49%). This document has been electronically signed by: Moses Roberts MD on 01/02/2025 12:14:32
--- OUTSIDE RECORDS SUMMARY | 2025-01-02 14:25 | XMS_ITS | Patient Health Record ---
Author Organization [facility] Address [address] [place] [address] Care Team Providers Care Lpn Instructor Name Role Phone TOMMY CHAPIN Primary Care Provider Kris Tate Unavailable [phone] Allergies No Known Allergies Results Component Value Reference Range Flag Notes Complete Blood Count Auto Di ff Reviewed date:01/04/2024 06:22:26 PM Interpretation: Performing Lab:[facility], [address] [place] [phone] Notes/Report: White Blood Count 4.0 4.8-10.8 X10*3/uL L Red Blood Count 3.89 4.60-5.80 X10*6/uL L Hemoglobin 11.6 14.0-18.0 g/dl L Hematocrit 35.4 42.0-52.0 % L Mean Corpuscular Volume 91.0 80.0-98.0 fL N Mean Corpuscular Hemoglobin 29.8 27.0-33.0 pg N Mean Corpuscular HGB Conc 32.8 31.0-36.0 g/dl N Red Cell Distribution Width 16.9 11.0-16.0 % H Platelet Count 162 160-400 X10*3/uL N Mean Platelet Volume 11.7 9.4-12.4 fL N Neutrophils Percent Auto 57.3 45-73 % N Imm Gran Pct Auto 0.3 0.0-0.4 % N Lymphocytes Percent Auto 29.4 20-40 % N Monocytes Percent Auto 7.0 2-11 % N Eosinophils Percent Auto 5.5 0-4 % H Basophils Percent Auto 0.5 0-2 % N NRBC Pct Auto 0.0 0.0-0.2 /100WBC N Neutrophils Absolute Auto 2.3 2.0-8.3 x10*3/uL N Imm Gran Abs Auto 0.01 0.00-0.03 X10*3/uL N Lymphocytes Absolute Auto 1.2 1.2-4.9 X10*3/uL N Monocytes Absolute Auto 0.3 0.1-1.2 X10*3/uL N Eosinophils Absolute Auto 0.2 0.0-0.4 X10*3/uL N Basophils Absolute Auto 0.0 0.0-0.2 X10*3/uL N NRBC Abs Auto 0.000 0.0-0.012 X10*3/uL N Liver Panel Reviewed date:01/04/2024 06:22:38 PM Interpretation: Performing Lab:[facility], [address] [place] [phone] Notes/Report: Bilirubin Total 0.5 0.0-1.0 mg/dL N Bilirubin Direct 0.2 0.0-0.5 mg/dL N Aspartate Amino Transferase 39 5-37 U/L H Slight Hemolysis.Interpret result with caution. Alanine Aminotransferase 19 0-40 U/L N Total Protein 6.2 6.5-8.0 g/dL L Albumin Level 3.7 3.5-5.0 g/dL N Alkaline Phosphatase 42 39-117 U/L N Basic Metabolic Panel Reviewed date:01/04/2024 06:24:42 PM Interpretation: Performing Lab:[facility], [address] [place] [phone] Notes/Report: Sodium 142 135-145 mmol/L N Potassium 4.5 3.3-5.1 mmol/L N Slight Hemolysis.Interpret result with caution. Chloride 111 96-108 mmol/L H Carbon Dioxide 23 22-29 mmol/L N Anion Gap 13 12-20 N Blood Urea Nitrogen 22 9-16 mg/dL H Creatinine 1.30 0.5-1.4 mg/dL N Estimated Glomerular Filt Rate 53 Chronic Kidney Disease: Estimated GFR < 60 mL/min/1.73m2 Severe Kidney Disease: Estimated GFR < 15 mL/min/1.73m2 Glucose Random 138 60-115 mg/dL H Calcium 9.3 8.4-10.2 mg/dL N IRON PROFILE Reviewed date:01/04/2024 12:39:25 PM Interpretation: Performing Lab:[facility], [address] [place] [phone] Notes/Report: Iron 83 45-160 mcg/dL N Slight Hemolysis.Interpret result with caution. Total Iron Binding Capacity 356 228-428 mcg/dL N Percent Iron Saturation 23 15-50 % N Unsaturated Iron Binding 273 Ferritin Reviewed date:01/04/2024 06:24:51 PM Interpretation: Performing Lab:[facility], [address] [place] [phone] Notes/Report: Ferritin 53 20-250 ng/mL N Free T4 (Free Thyroxine) Reviewed date:01/04/2024 06:24:58 PM Interpretation: Performing Lab:[facility], [address] [place] [phone] Notes/Report: Free T4 (Free Thyroxine) 1.17 0.71-1.85 ng/dL N TSH reflex Free T4 Reviewed date:01/04/2024 12:39:16 PM Interpretation: Performing Lab:[facility], [address] [place] [phone] Notes/Report: TSH reflex Free T4 4.01 0.32-4.0 uIU/mL H Reason For Referral No Information Medications Medication SIG (Take, Route, Frequency, Duration) Notes Start Date End Date Status Magnesium 200 MG Tablet 1 tablet with a meal Orally Twice a day Active Omeprazole 40 MG Capsule Delayed Release TAKE 1 CAPSULE BY MOUTH EVERY MORNING Orally Once a day; Duration: 30 days Active Vitamin D3 Active Readi-Cat 2 2 % Suspension 1 450ml bottle [address] and then 1 450ml bottle [address] Orally 2 bottles as directed; Duration: 1 days 11/19/2023 Active Aspirin 81 81 MG Tablet Delayed Release 1 tablet Orally Once a day; Duration: 30 day(s) Active Famotidine 40 MG Tablet 1 Orally Twice a day; Duration: 30 days 04/20/2023 Active Vitamin B12 INJECTIONS MONTHLY Active Pioglitazone HCl 30 MG Tablet 1 tablet Oral Once a day Active traZODone HCl 50 MG Tablet as directed Oral Once a day Active Fenofibrate 160 MG Tablet 1 tablet Oral Once a day Active Amoxicillin-Pot Clavulanate 875-125 MG Tablet 1 tablet Orally twice a day; Duration: 5 days 12/02/2024 Active dilTIAZem HCl ER Coated Beads 240 MG Capsule Extended Release 24 Hour 1 tablet Oral Once a day Active Atorvastatin Calcium 40 MG Tablet 1 tablet Oral Once a day Active Ondansetron HCl 4 MG Tablet 1 tablet Oral Once a day Active metFORMIN HCl ER 500 MG Tablet Extended Release 24 Hour 1 tablet with evening meal Oral Once a day Active Famotidine 40 MG Tablet 1 tablet at bedtime as needed Oral Once a day Not-Taking/P RN Citrucel 500 MG Tablet as directed Orally as directed Active Nasal [place] 0.05 % Solution 4 sprays (2 sprays in each nostril) Nasally Twice a day; Duration: 3 day(s) Not-Taking/P RN Immunizations Vaccine Route Administration Date Status Comme nts Influenza Unknown 12/14/2020 Administered Influenza Unknown 10/14/2021 Administered Social History Tobacco Use: Social History Observation Description Date Details (start date - stop date) Former Smoker NA - NA Social History Drugs/Alcohol: Social Info Question Answer Notes Alcohol Screen Did you have a drink containing alcohol in the past year? No Points 0 Interpretation Negative Tobacco Use: Social Info Question Answer Notes Tobacco Use/Smoking Patient is a former smoker How long has it been since you last smoked? > 10 years Additional Details Category Social Info Options Details Miscellaneous: Marital status: Occupation: retired Section Notes: Nonsmoker x 10 years; occ [...] W/U Status Risk Notes Problem Epigastric pain (24007366) Epigastric abdominal pain (R10.13) Active confirmed Problem Epigastric pain (09560589) Epigastric pain (R10.13) Active confirmed Problem Perforation and abscess of small intestine co-occurrent and due to diverticulitis (disorder) (301010955) Diverticulitis of small intestine with perforation and abscess without bleeding (K57.00) Active confirmed Problem Diverticulitis of small intestine (17832351) Diverticulitis of small intestine without perforation or abscess without bleeding (K57.12) Active confirmed Problem Nausea (870407169) Nausea (R11.0) Active confir med Problem Anorexia (37961897) Anorexia (R63.0) Active con firmed Problem Early satiety (387322354) Early satiety (R68.81) Active confirmed Problem Anemia (014648171) Anemia (D64.9) Active confir med Problem Gastritis (9424465) Gastritis (K29.70) Active confirmed Problem Chronic fatigue syndrome (84671882) Chronic fatigue (R53.82) Active confirmed Problem Gastroesophageal reflux disease (499161812) GERD (gastroesophageal reflux disease) (K21.9) Active confirmed Problem Decrease in appetite (finding) (41731618) Decreased appetite (R63.0) Active confirmed Vital Signs Blood pressure diastolic 11 mm Hg 04/23/2024 Height 67 in 04/23/2024 Blood pressure systolic 111 mm Hg 04/23/2024 Weight 162 lbs 04/23/2024 BMI 25.37 kg/m2 04/23/2024 Encounters Encounter Location Date Provider Diagnosis [facility] [address] [place] [phone] 04/23/2024 Kris Infante Diverticulitis of sm all intestine with perforation and abscess without bleeding K57.00 [facility] [address] [place] [address] 01/04/2024 Kris Infante [facility] [address] [place] [address] 12/02/2024 Kris Infante Assessments Encounter Date Diagnosis [...] 02/08/2022 BUN 06/08/2023 CREATININE 02/08/2022 LIVER PROFILE 04/20/2023 LIVER PROFILE 06/08/2023 LIVER PROFILE 06/26/2023 LIVER PROFILE 10/24/2023 LIVER PROFILE 08/10/2023 IRON + IBC (FE) 08/10/2023 IRON + IBC (FE) 10/24/2023 IRON + IBC (FE) 06/20/2023 CRP 06/08/2023 CRP 08/10/2023 CRP 06/26/2023 VITAMIN B12 AND FOLATE 06/20/2023 CBC w DIFF 06/20/2023 CBC w DIFF 10/24/2023 CBC w DIFF 04/20/2023 CBC w DIFF 06/08/2023 CBC w DIFF 06/26/2023 CBC w DIFF 08/10/2023 SED RATE (ESR) 08/10/2023 SED RATE (ESR) 06/26/2023 SED RATE (ESR) 06/08/2023 CT ABD & PELVIS WITH CONTRAST 02/08/2022 [...] Provider Name:Kris Infante , 04/24/2025 10:00:00 AM, [address] [place] [address], [address], [place], [address], Insurance Providers Payer Name Payer Address Payer Phone Subscriber Number Group Number Insured Name Patient Relationship to Insured Coverage Start Date Coverage End Date MEDICARE OF [place] [address] [place] [id number] KRIS BAKER Self - patient is the insured MED[employer] ATTN CLAIMS [address] [place] [address] [id number] KRIS BAKER Self - patient is the insured Medical (General) History Medical History History ICD Code Kidney stones COPD Prostate cancer NIDDM Hypertension Denies [place],CVA,Lung disease,renal disease Negative colonoscopy > 10 years [...] MARSHAL-followed by vascular surgery, Dr. Soler, at [facility]. He felt this presented more of a chronic issue as opposed to an acute problem. Inflammation and small absce sses in the region of the small bowel seen on the CT scan during the workup for the abdominal pain in April of 2023. This was treated with IV and subsequent oral antibiotics at [facility]. There was the finding of multiple [...] stable and improved. Surgical History Surgery Date(Month/Year) Left carotid Bilateral LE vascular procedures
--- OUTSIDE RECORDS SUMMARY | 2025-01-02 14:25 | XMS_ITS | Clinical Summary ---
Author Organization [facility] Address [address] [place] [address] Care Team Providers Care Lumber Bearer Name Role Phone Unavailable Primary Care Provider [...]
--- OUTSIDE RECORDS SUMMARY | 2025-01-02 14:26 | XMS_ITS | Patient Health Record ---
Author Organization [facility] Address [address] [facility] [place] [address] Care Team Providers Care Surgical Aides Teacher Name Role Phone Cristhian Garcia Primary Care Provider Unav ailable Black, Estela Unavailable [phone] Allergies No Known Allergies Results Component Value [...] Problem Acquired hammer toe of right foot (1205107053698211 ) Other hammer toe(s) (acquired), right foot (M20.41) Active confirmed Problem Acquired hammer toe of left foot (3390124468897414 ) Other hammer toe(s) (acquired), left foot (M20.42) Active confirmed Problem Polyneuropathy due to type 2 diabetes mellitus (703585542) Type 2 diabetes mellitus with diabetic polyneuropathy (E11.42) Active confirmed Vital Signs Blood pressure diastolic 70 mm Hg 09/05/2024 Height 5 ft 6 in in 09/05/2024 Blood pressure systolic 120 mm Hg 09/05/2024 Weight 145 lbs 09/05/2024 BMI 23.4 kg/m2 09/05/2024 Procedures Procedure Date Ordered Date Performed Result Body Sit e 60811-ZHTN SKIN LESIONS, 2 TO 4 03/07/2024 N/A 88647-IEJU NAIL(S) 03/07/2024 N/A 08650-QBGR SKIN LESIONS, 2 TO 4 09/05/2024 N/A 61987-TWDQ NAIL(S) 09/05/2024 N/A Encounters Encounter Location Date Provider Diagnosis [facility] [address] [address] 03/07/2024 Estela Black Type 2 diabetes mellitus with diabetic polyneuropathy E11.42 and Xerosis of skin L85.[address] [facility] [address] 09/05/2024 Estela Black Type 2 diabetes mellitus [...] Treatment Pending Test Test Name Order Date 70802-VFKD SKIN LESIONS, OVER 4 12/07/19 11 56063-MGED SKIN LESIONS, OVER 4 06/26/19 13 33785-VRJF SKIN LESIONS, OVER 4 01/01/20 13 93595-CWPR SKIN LESIONS, OVER 4 07/26/19 14 05802-IIVD SKIN LESIONS, OVER 4 01/16/20 14 33034-FGJA SKIN LESIONS, OVER 4 07/17/19 15 95372-KWPX SKIN LESIONS, 2 TO 4 01/15/20 15 19521-ACXW SKIN LESIONS, 2 TO 4 12/22/19 12 41667-GRRB SKIN LESIONS, 2 TO 4 06/20/19 12 91313-CTIC SKIN LESIONS, 2 TO 4 07/20/19 16 15996-DSWZ SKIN LESIONS, 2 TO 4 01/18/20 16 81802-DGKL SKIN LESIONS, 2 TO 4 07/19/19 17 21176-EJWZ SKIN LESIONS, 2 TO 4 01/24/20 17 29596-JNLW SKIN LESIONS, 2 TO 4 01/16/20 18 95536-DPSZ SKIN LESIONS, 2 TO 4 08/21/19 19 08852-ZOEY SKIN LESIONS, 2 TO 4 02/25/19 20 84378-TPCM SKIN LESIONS, 2 TO 4 08/08/19 20 90853-BHQE SKIN LESIONS, 2 TO 4 02/03/20 20 99854-MSHU SKIN LESIONS, 2 TO 4 07/21/19 21 98741-QJSP SKIN LESIONS, 2 TO 4 02/22/19 22 63540-QLAA SKIN LESIONS, 2 TO 4 08/31/19 22 37533-HEVV SKIN LESIONS, 2 TO 4 02/24/19 23 78446-TCMC SKIN LESIONS, 2 TO 4 08/26/19 23 52189-SSDP SKIN LESIONS, 2 TO 4 03/02/19 24 37023-BPZM SKIN LESIONS, 2 TO 4 08/31/19 24 01001-SEGD SKIN LESIONS, 2 TO 4 03/07/19 25 98233-SZLT SKIN LESIONS, 2 TO 4 09/06/19 25 31356-PPGI NAIL(S) 09/05/2024 64633-DIHD NAIL(S) 03/07/2024 12068-WPDH NAIL(S) 08/31/2023 42985-AEIX NAIL(S) 03/02/2023 86225-MSCR NAIL(S) 08/25/2022 97824-UVCS NAIL(S) 02/24/2022 13762-UJVN NAIL(S) 08/30/2021 88346-OZPA NAIL(S) 02/22/2021 27417-ZCHW NAIL(S) 07/20/2020 64167-ZDEQ NAIL(S) 02/03/2020 50446-WKRR NAIL(S) 08/08/2019 59793-CSFM NAIL(S) 02/25/2019 31468-MNOX NAIL(S) 08/20/2018 31502-OJAN NAIL(S) 01/15/2018 06250-GWWF NAIL(S) 07/18/2016 40826-NTUJ NAIL(S) 01/18/2016 12673-HGIB NAIL(S) 07/20/2015 34887-QGUJ NAIL(S) 12/22/2011 87582-ERRT NAIL(S) 12/06/2010 78782-JEIM NAIL(S) 06/20/2011 09961-PBEB NAIL(S) 06/25/2012 83994-FVZH NAIL(S) 12/31/2012 75210-KQRC NAIL(S) 01/14/2015 35118-MILT NAIL(S) 07/16/2014 59032-QHJS NAIL(S) 01/15/2014 40054-KZAW NAIL(S) 07/25/2013 A8440-WBAORXPX DYSTROPHIC NAILS ANY # Next Appt Details Provider Name:Estela Bell , 03/06/2025 09:00:00 AM, [address] [place], [address], Insurance Providers Payer Name Payer Address Payer Phone Subscriber Number Group Number Insured Name Patient Relationship to Insured Coverage Start Date Coverage End Date Medicare National [employer]t [employer] [address] [facility] [address] [id number] Larry Pichardo Self - patient is the insured [employer] [address] [place] [address] [id number] Larry Pichardo Self - patient is the insured Medical (General) History Medical History History ICD Code mumps measles hypertension diabetic chicken pox cancer Cholesterol Surgical History Surgery Date(Month/Year) opened artery 08/08/2018 cataract surgery
--- OUTSIDE RECORDS SUMMARY | 2025-01-02 14:27 | XMS_ITS | Clinical Summary ---
Author Organization [facility] Address [address] [address] Phone Care Team Providers Care Product Development Consultant Name Role Phone Cristhian Durán NP Primary Care Provider [phone] Allergies No known active allergies Medications atorvastatin [...] 11/24/2024 Refill [facility] [address] [phone] Hawk Aiken MD 11/15/2024 Orders Only [facility] [address] [address] Hawk Aiken MD Stage 3b chronic kidney [...] Office Visit [facility] [address] [phone] Hawk Aiken MD [address] [address] Health Maintenance Due Date Last Done Comments [...] [facility] Care Teams Product Development Consultant Relationship Specialty Start Date End Date Cristhian Durán NP [address] [place] [id number] PCP - General Nurse Practitioner 02/16/22
== END 2025-01-02 09:55 | disposition home or self-care (01) ==
LOC: HO.HMGCX 09:54
PROVIDERS: Absent Provider Nurse Practitioner Family; PCP Nurse Practitioner Family; Referring Provider Internal Medicine Endocrinology, Diabetes & Metabolism; Visit Provider Surgery Vascular Surgery
DX: I65.23 Occlusion and stenosis of bilateral carotid arteries (principal); E27.8 Other specified disorders of adrenal gland
CPT/HCPCS: 82530; 82570; 93880

== ENCOUNTER 2025-01-16 08:52 | Outpatient (REF) | payer MEDICARE, SELFPAY ==
--- OUTSIDE RECORDS SUMMARY | 2025-01-16 09:35 | XMS_ITS | Clinical Summary ---
Author Organization [facility] Address [address] [place] [address] Care Team Providers Care Pyroglazer Name Role Phone Unavailable Primary Care Provider [...]
[2025-01-16 10:16] LABS: MANUAL DIFF FLAG NO
[2025-01-16 10:37] LABS: Hematocrit 35.1 % (42.0-52.0); Hemoglobin 11.3 g/dl (14.0-18.0); Imm Gran Abs Auto 0.01 X10*3/uL (0.00-0.03); Imm Gran Pct Auto 0.3 % (0.0-0.4); Lymphocytes Absolute Auto 1.0 X10*3/uL (1.2-4.9); Mean Corpuscular HGB Conc 32.2 g/dl (31.0-36.0); Mean Corpuscular Hemoglobin 30.3 pg (27.0-33.0); Mean Corpuscular Volume 94.1 fL (80.0-98.0); NRBC Abs Auto 0.000 X10*3/uL (0.0-0.012); NRBC Pct Auto 0.0 /100WBC (0.0-0.2); Platelet Count 173 X10*3/uL (160-400); Red Blood Count 3.73 X10*6/uL (4.60-5.80); White Blood Count 3.5 X10*3/uL (4.8-10.8)
[2025-01-16 11:19] LABS: Parathyroid Hormone Intact 21.1 pg/mL (8.7-77.1)
[2025-01-16 11:55] LABS: Protein/Creatinine Ratio, Ur 0.12 (<0.2); Total Protein Urine Random 14 mg/dL (<12)
[2025-01-16 13:10] LABS: Alanine Aminotransferase 25 U/L (0-40); Albumin Level 4.0 g/dL (3.5-5.0); Alkaline Phosphatase 62 U/L (39-117); Anion Gap 11 (12-20); Aspartate Amino Transferase 40 U/L (5-37); Blood Urea Nitrogen 22 mg/dL (9-16); Calcium 9.0 mg/dL (8.4-10.2); Carbon Dioxide 26 mmol/L (22-29); Chloride 109 mmol/L (96-108); Estimated Glomerular Filt Rate 50; Magnesium 1.3 mg/dL (1.6-2.6); Potassium 4.5 mmol/L (3.3-5.1); Sodium 141 mmol/L (135-145); Total Protein 6.2 g/dL (6.5-8.0); Uric Acid 4.8 mg/dL (3.4-7.0)
== END 2025-01-16 08:53 | disposition home or self-care (01) ==
LOC: HO.HMGCLDS 08:52
PROVIDERS: PCP Nurse Practitioner Family; Visit Provider Internal Medicine Nephrology
DX: I12.9 Hypertensive chronic kidney disease with stage 1 through stage 4 chronic kidney disease, or unspecified chronic kidney disease (principal); E11.22 Type 2 diabetes mellitus with diabetic chronic kidney disease; N18.32 Chronic kidney disease, stage 3b; I71.40 Abdominal aortic aneurysm, without rupture, unspecified; I73.9 Peripheral vascular disease, unspecified; E83.42 Hypomagnesemia; Z85.46 Personal history of malignant neoplasm of prostate
CPT/HCPCS: 36415; 80053; 82306; 82570; 83735; 83970; 84100; 84156; 84550; 85025

== ENCOUNTER 2025-01-20 09:25 | Outpatient (REF) | payer MEDICARE, SELFPAY | END 2025-01-20 09:26 | disposition home or self-care (01) | LOC: HO.LAB 09:25 | PROVIDERS: PCP Nurse Practitioner Family; Visit Provider Internal Medicine Endocrinology, Diabetes & Metabolism | DX: E27.8 Other specified disorders of adrenal gland (principal) | CPT/HCPCS: 36415; 82024 ==

== ENCOUNTER 2025-01-23 08:21 | Outpatient (AMB) | payer MEDICARE, SELFPAY ==
--- NOTE | 2025-01-23 08:45 | AM.OFFVISNUR ---
Intake Visit Reasons: B-12 shot Intake Note: Pt arrived for monthly B-12 injection Allergies No Known Allergies (No Known Allergies*) Allergy (Verified 12/24/24 11:05) Office Meds cyanocobalamin (vitamin B-12) 1,000 mcg/mL injection solution Performing Provider: KLAUDIA Morales Performing Location: [facility] Administered by: Cici Van RN on 01/23/25 08:46 Dose Route Admin Location Dispensed Lot Number Expiration Date [facility] Manager Technical Support 1,000 mcg IM left deltoid 1 mL [id number] 05/14/26 20389-473-98 [employer] Total Dispensed Waste 1 mL 0 % Comments: Pt supplied Assessment & Plan Assessment & Plan Orders: Orders AMB Vitamin B12 Injection Patient Supplied Today E53.8 - Deficiency of other specified B group vitamins Coding
== END 2025-01-23 09:02 | disposition home or self-care (01) ==
LOC: HO.HMCC 08:22
PROVIDERS: PCP Nurse Practitioner Family; Visit Provider Nurse Practitioner Family
DX: E53.8 Deficiency of other specified B group vitamins (principal)

== ENCOUNTER → 2025-01-23 08:21 | Outpatient (BNVA) | payer MEDICARE, SELFPAY | PROVIDERS: PCP Nurse Practitioner Family; Visit Provider Nurse Practitioner Family | DX: E53.8 Deficiency of other specified B group vitamins (principal) | CPT/HCPCS: 96372; J3420 ==